=== PATIENT | female | born 1955 | race Caucasian/White ===

== ENCOUNTER → 2016-11-13 | Outpatient (CLI) | payer MEDICARE, BC ==
[2016-11-13 09:27] LABS: Blood Urea Nitrogen 5 mg/dL (7-17); Non-African American GFR(MDRD) >60 (>60 ml/min/1.73 sqM)
--- NOTE | 2016-11-13 11:00 | MR ---
EXAMINATION TYPE: MR angio head wo con DATE OF EXAM: 11/13/2016 10:43 AM COMPARISON: Previous study dated 08/24/2015. HISTORY: Brain tumor, cerebral aneurysm. TECHNIQUE: Time of flight images focusing on the [place] were performed without contrast. FINDINGS: The vertebral arteries are codominant. The right posterior communicating artery is visualiz ed. The left is not. Both ophthalmic arteries are visualized. There is normal arborization of the middle cerebral arteries bilaterally. No sizable aneurysm is identified. IMPRESSION: Normal MRA of the [place].
--- NOTE | 2016-11-13 11:09 | MR ---
EXAMINATION TYPE: MR brain wo/w con DATE OF EXAM: 11/13/2016 10:43 AM COMPARISON: Previous study dated 08/24/2015. HISTORY: brain tumor, cerebral aneurysm TECHNIQUE: Multiplanar, multiecho imaging of the brain was obtained with and without intravenous adm inistration of 15 mL intravenous MultiHance. FINDINGS: Midline structures are unremarkable. There is a normal craniocervical junction. Echoplanar diffusion imaging shows no evidence of restricted diffusion. There are normal vascular flow voids. The orbits are normal. There is no evidence of a CP angle mass lesion. No definite focal lesion, mass effect or midline shift is seen. I do not see evidence of intracranial blood. Following intravenous administration of gadolinium, I do not see evidence of abnormal enhancement. IMPRESSION: NORMAL MRI OF THE BRAIN.
== END ==
LOC: RADMRIMAIN 08:59
PROVIDERS: ATTEND Psychiatry & Neurology Neurology
DX: D49.6 Neoplasm of unspecified behavior of brain (principal); I67.1 Cerebral aneurysm, nonruptured
CPT/HCPCS: 82565; 84520; 70544; 70553; A9577

== ENCOUNTER 2018-01-27 11:47 | Emergency (ER) | payer MEDICARE, BC ==
[2018-01-27 12:06] VITALS: RESP 18
--- NOTE | 2018-01-27 12:26 | ED ---
General Adult HPI - General Chief complaint: Psychiatric Symptoms Stated complaint: mental health depression Source: patient Mode of arrival: ambulatory Limitations: no limitations - History of Present Illness Initial comments: Dictation was produced using [employer] dictation software. please excuse any grammatical, word or spelling errors. Chief Complaint: 63-year-old female past medical history depression, anxiety and bipolar disease presents requesting psychiatric evaluation. History of Present Illness: Patient denies any suicidal or homicidal ideation. Denies any visual artery hallucinations. Patient states she's been depressed for the last several months. She's been having difficulties with finding a psychiatrist. She states she has really good insurance however she reports that most psychiatrist with take Medicaid. Patient requesting EPS evaluation for medication adjustment. The ROS documented in this emergency department record has been reviewed and confirmed by me. Those systems with pertinent positive or negative responses have been documented in the HPI. All other systems are other negative and/or noncontributory. - Related Data Home Medications Medication Instructions Recorded Confirmed LORazepam [Ativan] 1 mg PO BID 10/28/13 01/27/18 lamoTRIgine [LaMICtal] 200 mg PO BID 10/28/13 01/27/18 Lisdexamfetamine Dimesylate 40 mg PO DAILY 04/10/16 01/27/18 [Vyvanse] QUEtiapine FUMARATE [SEROquel] 200 mg PO HS 04/10/16 01/27/18 traZODone HCL 150 mg PO HS 04/10/16 01/27/18 Multivitamins, Thera [Multivitamin 1 tab PO DAILY 01/27/18 01/27/18 (formulary)] Allergies Allergy/AdvReac Type Severity Reaction Status Date / Time No Known Allergies Allergy Verified 01/27/18 12:42 Review of Systems ROS Statement: Those systems with pertinent positive or pertinent negative responses have been documented in the HPI. ROS Other: All systems not noted in ROS Statement are negative. Past Medical History Past Medical History: No Reported History History of Any Multi-Drug Resistant Organisms: None Reported Past Surgical History: Back Surgery, Bariatric Surgery, Orthopedic Surgery Additional Past Surgical History / Comment(s): right shoulder, left shoulder, gastric bypass Past Anesthesia/Blood Transfusion Reactions: No Reported Reaction Past Psychological History: Anxiety, Bipolar, Depression Smoking Status: Former smoker General Exam - General Exam Comments Initial Comments: PHYSICAL EXAM: General Impression: Alert and oriented x3, not in acute distress HEENT: Normocephalic atraumatic, extra-ocular movements intact, pupils equal and reactive to light bilaterally, mucous membranes moist. Cardiovascular: Heart regular rate and rhythm, S1&S2 audible, no murmurs, rubs or gallops Chest: Lungs clear to auscultation bilaterally, no rhonchi, no wheeze, no rales Abdomen: Bowel sounds present, abdomen soft, non-tender, non-distended, no organomegaly Musculoskeletal: Pulses present and equal in all extremities, no peripheral edema Motor: Power 5/5 bilaterally, no focal deficits noted Neurological: CN II-XII grossly intact, no focal motor or sensory deficits noted Skin: Intact with no visualized rashes Psych: Flat of ideas, tangential speech Limitations: no limitations Course Vital Signs 01/27/18 12:04 Temperature 97.1 F L Pulse Rate 72 Respiratory 18 Rate Blood Pressure 136/82 O2 Sat by Pulse 97 Oximetry Medical Decision Making - Medical Decision Making ED course: 63-year-old female past medical history of bipolar disease , depression and anxiety presents seeking psychiatric evaluation for possible medication adjustment. Vital signs upon arrival are within normal limits. Patient not exhibiting any signs of psychosis. She states she is not suicidal or homicidal. No auditory or visual hallucinations. Patient denies any drinking. EPS consult it for evaluation. Patient was evaluated by EPS recommended discharge. She was given resources for outpatient management of her symptoms. Patient understandable agreeable to plan. - Lab Data Lab Results 01/27/18 Range/Units 13:32 Urine Opiates Screen Not Detected (NotDetected) Ur Oxycodone Screen Not Detected (NotDetected) Urine Methadone Screen Not Detected (NotDetected) Ur Propoxyphene Screen Not Detected (NotDetected) Ur Barbiturates Screen Not Detected (NotDetected) U Tricyclic Antidepress Not Detected (NotDetected) Ur Phencyclidine Scrn Not Detected (NotDetected) Ur Amphetamines Screen Detected H (NotDetected) U Methamphetamines Scrn Not Detected (NotDetected) U Benzodiazepines Scrn Detected H (NotDetected) Urine Cocaine Screen Not Detected (NotDetected) U Marijuana (THC) Screen Not Detected (NotDetected) Disposition Clinical Impression: Depression Disposition: HOME SELF-CARE Condition: Good Instructions: Depression (ED) Is patient prescribed a controlled substance at d/c from ED?: No Referrals: None,Stated [Primary Care Provider] - 1-2 days Time of Disposition: 14:25
[2018-01-27 14:08] LABS: Amphetamine Screen,Urine Detected (NotDetected); Barbiturate Screen,Urine Not Detected (NotDetected); Benzodiazepines Screen,Urine Detected (NotDetected); Cocaine Screen,Urine Not Detected (NotDetected); Methadone Screen, Urine Not Detected (NotDetected); Opiate Screen,Urine Not Detected (NotDetected); Oxycodone Screen, Urine Not Detected (NotDetected); Phencyclidine Screen,Urine Not Detected (NotDetected); Tricyclic Antidepressant,Urine Not Detected (NotDetected); Urn Cannabinoid Scrn Not Detected (NotDetected)
[2018-01-27 14:31] VITALS: BP 144/92; PULSE 51; TEMP 98.6
== END 2018-01-27 14:30 | disposition home or self-care (01) ==
LOC: EC 11:47
DX: F32.9 Major depressive disorder, single episode, unspecified (principal); F41.9 Anxiety disorder, unspecified; Z87.891 Personal history of nicotine dependence; Z79.899 Other long term (current) drug therapy
CPT/HCPCS: 80306; 99284

== ENCOUNTER 2018-02-03 17:45 | Inpatient (IN) | payer MEDICARE, BC ==
[2018-02-03] MEDS ORDERED: LORazepam 1 MG TAB PO STA (18:39)
--- NOTE | 2018-02-03 18:55 | ED ---
Psych HPI - General Chief Complaint: Psychiatric Symptoms Stated Complaint: EPS eval Time Seen by Provider: 02/03/18 18:05 Source: patient, RN notes reviewed Mode of arrival: ambulatory Limitations: no limitations - History of Present Illness Initial Comments: This is a 63-year-old female who presents to the emergency department for mental health evaluation. Patient states that she has a history of bipolar disorder. She states that she has been taking Vyvanse, Ativan, Lamictal, trazodone and Seroquel for years. She states that in September there was a problem with her son's bill at her psychiatrist's office and he was discharged from the office. She states that she was also discharged from the office at the same time because of her son. She states that she has been given refills from her psychiatrist for the Lamictal, trazodone and Seroquel, but has not been given refills for the Vyvanse and Ativan. Patient states that she has been given multiple referrals to psychiatrists within the [place]. She states that she has called approximately 20 different psychiatrists and none of them take her [employer] insurance. She states that she did follow up with her primary care provider, Dr. Montes who would not refill her Vyvanse and Ativan. She reports she ran out of her Vyvanse and Ativan last . She states that she has been going through withdrawals from the Ativan with symptoms including abdominal pain, nausea and vomiting. 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 She states that on Thursday she was very close to stopping at a local bar and drinking Vodka. She states that she knew it would only be a temporary fix so was able to talk herself out of it. Patient states that her symptoms have worsened since that time. She states that she is now feeling suicidal. She states that she is having urges to drink alcohol and take pills because she does not want to ever wake up. She reports telling her son about these symptoms and he suggested that she come to the emergency department for evaluation. Patient also complains of right-sided chest pain that began yesterday and has spread across her entire chest. Denies any shortness of breath, fevers or chills, diarrhea. Patient states she was evaluated here last Thursday but was discharged home because at the time she was not feeling suicidal. - Related Data Home Medications Medication Instructions Recorded Confirmed LORazepam [Ativan] 1 - 2 mg PO DAILY PRN 10/28/13 02/03/18 lamoTRIgine [LaMICtal] 200 mg PO BID 10/28/13 02/03/18 Lisdexamfetamine Dimesylate 40 mg PO DAILY 04/10/16 02/03/18 [Vyvanse] QUEtiapine FUMARATE [SEROquel] 200 mg PO HS 04/10/16 02/03/18 traZODone HCL 150 mg PO HS 04/10/16 02/03/18 Allergies Allergy/AdvReac Type Severity Reaction Status Date / Time No Known Allergies Allergy Verified 02/03/18 18:34 Review of Systems ROS Statement: Those systems with pertinent positive or pertinent negative responses have been documented in the HPI. ROS Other: All systems not noted in ROS Statement are negative. Past Medical History Past Medical History: No Reported History History of Any Multi-Drug Resistant Organisms: None Reported Past Surgical History: Back Surgery, Bariatric Surgery, Orthopedic Surgery Additional Past Surgical History / Comment(s): right shoulder, left shoulder, gastric bypass Past Anesthesia/Blood Transfusion Reactions: No Reported Reaction Past Psychological History: Anxiety, Bipolar, Depression Smoking Status: Former smoker General Exam - General Exam Comments Initial Comments: General: Awake and alert, well-developed; in no apparent distress. HEENT: Head atraumatic, normocephalic. Pupils are equal, round and reactive to light. Extraocular movements intact. Oropharynx moist without erythema or exudate. Neck: Supple. Normal ROM. Cardiovascular: Regular rate and rhythm. No murmurs, rubs or gallops. Chest symmetrical. Respiratory: Lungs clear to auscultation bilaterally. No wheezes, rales or rhonchi. Normal respiratory effort with no use of accessory muscles. Abdomen: Soft, non-distended. Mild generalized tenderness. No rigidity, rebound or guarding. Normal bowel sounds in all 4 quadrants. Musculoskeletal: Normal ROM, no tenderness bilateral upper and lower extremities. Ambulating normally. Skin: [place], warm and dry without rashes or lesions. Neurological: Alert and oriented x3. CN II-XII grossly intact. Speech is fluent and answers are appropriate. No focal neuro deficits. Psychiatric: Patient is very talkative and forthcoming with history. Tearful at times. Anxious. Limitations: no limitations Course Vital Signs 02/03/18 17:57 Temperature 97.4 F L Pulse Rate 69 Respiratory 18 Rate Blood Pressure 157/77 O2 Sat by Pulse 99 Oximetry Medical Decision Making - Medical Decision Making This is a 63-year-old female who presents to the emergency department for mental health evaluation. Patient reports feeling suicidal since being off of her Vyvanse and Ativan last . Patient was cleared and evaluated by EPS. Recommendation is admission. Vitals are stable and patient is in no acute distress. She will be admitted to the psychiatric unit here at [facility]. - Lab Data Result diagrams: 02/03/18 18:49 02/03/18 18:49 Lab Results 02/03/18 02/03/18 02/03/18 Range/Units 18:49 18:49 18:49 WBC 6.5 (3.8-10.6) k/uL RBC 3.90 (3.80-5.40) m/uL Hgb 12.3 (11.4-16.0) gm/dL Hct 37.5 (34.0-46.0) % MCV 96.2 (80.0-100.0) fL MCH 31.4 (25.0-35.0) pg MCHC 32.6 (31.0-37.0) g/dL RDW 14.0 (11.5-15.5) % Plt Count 233 (150-450) k/uL Neutrophils % 68 % Lymphocytes % 17 % Monocytes % 7 % Eosinophils % 5 % Basophils % 1 % Neutrophils # 4.4 (1.3-7.7) k/uL Lymphocytes # 1.1 (1.0-4.8) k/uL Monocytes # 0.5 (0-1.0) k/uL Eosinophils # 0.3 (0-0.7) k/uL Basophils # 0.1 (0-0.2) k/uL Sodium 136 L (137-145) mmol/L Potassium 4.2 (3.5-5.1) mmol/L Chloride 101 (98-107) mmol/L Carbon Dioxide 25 (22-30) mmol/L Anion Gap 10 mmol/L BUN 11 (7-17) mg/dL Creatinine 0.56 (0.52-1.04) mg/dL Est GFR (CKD-EPI)AfAm >90 (>60 ml/min/1.73 sqM) Est GFR (CKD-EPI)NonAf >90 (>60 ml/min/1.73 sqM) Glucose 102 H (74-99) mg/dL Calcium 10.6 H (8.4-10.2) mg/dL Total Bilirubin 0.5 (0.2-1.3) mg/dL AST 30 (14-36) U/L ALT 34 (9-52) U/L Alkaline Phosphatase 86 (38-126) U/L Troponin I (0.000-0.034) ng/mL Total Protein 6.8 (6.3-8.2) g/dL Albumin 4.3 (3.5-5.0) g/dL Urine Color Light Yellow Urine Appearance Clear (Clear) Urine pH 6.0 (5.0-8.0) Ur Specific [place] 1.005 (1.001-1.035) Urine Protein Negative (Negative) Urine Glucose (UA) Negative (Negative) Urine Ketones Negative (Negative) Urine Blood Small H (Negative) Urine Nitrite Negative (Negative) Urine Bilirubin Negative (Negative) Urine Urobilinogen <2.0 (<2.0) mg/dL Ur Leukocyte Esterase Negative (Negative) Urine RBC 1 (0-5) /hpf Urine WBC <1 (0-5) /hpf Urine Bacteria Rare H (None) /hpf Urine Opiates Screen Not Detected (NotDetected) Ur Oxycodone Screen Not Detected (NotDetected) Urine Methadone Screen Not Detected (NotDetected) Ur Propoxyphene Screen Not Detected (NotDetected) Ur Barbiturates Screen Not Detected (NotDetected) U Tricyclic Antidepress Not Detected (NotDetected) Ur Phencyclidine Scrn Not Detected (NotDetected) Ur Amphetamines Screen Detected H (NotDetected) U Methamphetamines Scrn Not Detected (NotDetected) U Benzodiazepines Scrn Not Detected (NotDetected) Urine Cocaine Screen Not Detected (NotDetected) U Marijuana (THC) Screen Not Detected (NotDetected) 02/03/18 Range/Units 18:49 WBC (3.8-10.6) k/uL RBC (3.80-5.40) m/uL Hgb (11.4-16.0) gm/dL Hct (34.0-46.0) % MCV (80.0-100.0) fL MCH (25.0-35.0) pg MCHC (31.0-37.0) g/dL RDW (11.5-15.5) % Plt Count (150-450) k/uL Neutrophils % % Lymphocytes % % Monocytes % % Eosinophils % % Basophils % % Neutrophils # (1.3-7.7) k/uL Lymphocytes # (1.0-4.8) k/uL Monocytes # (0-1.0) k/uL Eosinophils # (0-0.7) k/uL Basophils # (0-0.2) k/uL Sodium (137-145) mmol/L Potassium (3.5-5.1) mmol/L Chloride (98-107) mmol/L Carbon Dioxide (22-30) mmol/L Anion Gap mmol/L BUN (7-17) mg/dL Creatinine (0.52-1.04) mg/dL Est GFR (CKD-EPI)AfAm (>60 ml/min/1.73 sqM) Est GFR (CKD-EPI)NonAf (>60 ml/min/1.73 sqM) Glucose (74-99) mg/dL Calcium (8.4-10.2) mg/dL Total Bilirubin (0.2-1.3) mg/dL AST (14-36) U/L ALT (9-52) U/L Alkaline Phosphatase (38-126) U/L Troponin I <0.012 (0.000-0.034) ng/mL Total Protein (6.3-8.2) g/dL Albumin (3.5-5.0) g/dL Urine Color Urine Appearance (Clear) Urine pH (5.0-8.0) Ur Specific [place] (1.001-1.035) Urine Protein (Negative) Urine Glucose (UA) (Negative) Urine Ketones (Negative) Urine Blood (Negative) Urine Nitrite (Negative) Urine Bilirubin (Negative) Urine Urobilinogen (<2.0) mg/dL Ur Leukocyte Esterase (Negative) Urine RBC (0-5) /hpf Urine WBC (0-5) /hpf Urine Bacteria (None) /hpf Urine Opiates Screen (NotDetected) Ur Oxycodone Screen (NotDetected) Urine Methadone Screen (NotDetected) Ur Propoxyphene Screen (NotDetected) Ur Barbiturates Screen (NotDetected) U Tricyclic Antidepress (NotDetected) Ur Phencyclidine Scrn (NotDetected) Ur Amphetamines Screen (NotDetected) U Methamphetamines Scrn (NotDetected) U Benzodiazepines Scrn (NotDetected) Urine Cocaine Screen (NotDetected) U Marijuana (THC) Screen (NotDetected) - EKG Data EKG Comments: 19:20:00. Sinus bradycardia. Ventricular rate 46 bpm, OK interval 206, QRS duration 86, QT/QTc 462/404 Disposition Clinical Impression: Suicidal ideation, Bipolar disorder Disposition: ADMITTED IP TO THIS HOSP Condition: Good
[2018-02-03 19:12] LABS: Basophils # (A) 0.1 k/uL (0-0.2); Basophils % (A) 1 %; Eosinophils # (A) 0.3 k/uL (0-0.7); Eosinophils % (A) 5 %; HCT 37.5 % (34.0-46.0); HGB 12.3 gm/dL (11.4-16.0); Lymphocytes # (A) 1.1 k/uL (1.0-4.8); Lymphocytes % (A) 17 %; MCH 31.4 pg (25.0-35.0); MCHC 32.6 g/dL (31.0-37.0); MCV 96.2 fL (80.0-100.0); Mean Platelet Volume 6.9; Monocytes # (A) 0.5 k/uL (0-1.0); Monocytes % (A) 7 %; Neutrophils # (A) 4.4 k/uL (1.3-7.7); Neutrophils % (A) 68 %; Platelet Count 233 k/uL (150-450); WBC 6.5 k/uL (3.8-10.6)
[2018-02-03 19:22] LABS: Appearance,Urine Clear (Clear); Bacteria,Urine Rare /hpf; Bilirubin,Urine Negative (Negative); Blood,Urine Small (Negative); Color,Urine Light Yellow; Glucose,Urine (UA) Negative (Negative); Ketones,Urine Negative (Negative); Leukocyte Esterase,Urine Negative (Negative); Nitrite,Urine Negative (Negative); Protein,Urine Negative (Negative); RBC,Urine 1 /hpf (0-5); Specific Gravity,Urine 1.005 (1.001-1.035); Urobilinogen,Urine <2.0 mg/dL (<2.0); WBC,Urine <1 /hpf (0-5)
[2018-02-03 19:24] LABS: ALT 34 U/L (9-52); AST 30 U/L (14-36); Albumin 4.3 g/dL (3.5-5.0); Alkaline Phosphatase 86 U/L (38-126); Anion Gap 10 mmol/L; Blood Urea Nitrogen 11 mg/dL (7-17); Calcium 10.6 mg/dL (8.4-10.2); Carbon Dioxide 25 mmol/L (22-30); Chloride 101 mmol/L (98-107); Glucose 102 mg/dL (74-99); Potassium 4.2 mmol/L (3.5-5.1); Sodium 136 mmol/L (137-145); Total Bilirubin 0.5 mg/dL (0.2-1.3); Total Protein 6.8 g/dL (6.3-8.2)
[2018-02-03 19:25] LABS: Amphetamine Screen,Urine Detected (NotDetected); Barbiturate Screen,Urine Not Detected (NotDetected); Benzodiazepines Screen,Urine Not Detected (NotDetected); Cocaine Screen,Urine Not Detected (NotDetected); Methadone Screen, Urine Not Detected (NotDetected); Opiate Screen,Urine Not Detected (NotDetected); Oxycodone Screen, Urine Not Detected (NotDetected); Phencyclidine Screen,Urine Not Detected (NotDetected); Tricyclic Antidepressant,Urine Not Detected (NotDetected); Urn Cannabinoid Scrn Not Detected (NotDetected)
[2018-02-03] MEDS ORDERED: ZIPRASIDONE 20 MG VIAL IM PRN (22:25)
[2018-02-03] MEDS ORDERED: LORazepam 1 MG TAB PO PRN (22:25)
[2018-02-03] MEDS ORDERED: QUEtiapine 100 MG TAB PO SCH (22:30)
[2018-02-04] MEDS: MAG HYDROX/AL HYDROX/SIMETH 30 ML CUP PO PRN (02:12)
[2018-02-04] MEDS: lamoTRIgine 100 MG TAB PO SCH ×2 (08:53→20:40)
[2018-02-04 10:29] LABS: ALT 26 U/L (9-52); AST 28 U/L (14-36); Albumin 4.4 g/dL (3.5-5.0); Alkaline Phosphatase 82 U/L (38-126); Anion Gap 6 mmol/L; Bilirubin, Delta 0.1 mg/dL (0.0-0.2); Bilirubin,Unconjugated 0.4 mg/dL (0.0-1.1); Blood Urea Nitrogen 13 mg/dL (7-17); Calcium 10.7 mg/dL (8.4-10.2); Carbon Dioxide 25 mmol/L (22-30); Chloride 107 mmol/L (98-107); Glucose 81 mg/dL (74-99); Sodium 138 mmol/L (137-145); Total Bilirubin 0.5 mg/dL (0.2-1.3); Total Protein 6.8 g/dL (6.3-8.2)
--- NOTE | 2018-02-04 10:34 | P.HP ---
Psychiatric H&P - . H&P Date: 02/04/18 History & Physical: Allergies Allergy/AdvReac Type Severity Reaction Status Date / Time No Known Allergies Allergy Verified 02/03/18 18:34 Vital Signs Temp 97.5 F L 02/04/18 02:15 Pulse 58 L 02/04/18 02:15 Resp 16 02/04/18 02:15 BP 144/84 02/04/18 02:15 Pulse Ox 99 02/03/18 17:57 Intake & Output 02/03/18 02/04/18 02/04/18 18:59 06:59 18:59 Weight 70.76 kg 71.4 kg Laboratory Last Values WBC 6.5 k/uL (3.8-10.6) 02/03/18 18:49 RBC 3.90 m/uL (3.80-5.40) 02/03/18 18:49 Hgb 12.3 gm/dL (11.4-16.0) 02/03/18 18:49 Hct 37.5 % (34.0-46.0) 02/03/18 18:49 MCV 96.2 fL (80.0-100.0) 02/03/18 18:49 MCH 31.4 pg (25.0-35.0) 02/03/18 18:49 MCHC 32.6 g/dL (31.0-37.0) 02/03/18 18:49 RDW 14.0 % (11.5-15.5) 02/03/18 18:49 Plt Count 233 k/uL (150-450) 02/03/18 18:49 Neutrophils % 68 % 02/03/18 18:49 Lymphocytes % 17 % 02/03/18 18:49 Monocytes % 7 % 02/03/18 18:49 Eosinophils % 5 % 02/03/18 18:49 Basophils % 1 % 02/03/18 18:49 Neutrophils # 4.4 k/uL (1.3-7.7) 02/03/18 18:49 Lymphocytes # 1.1 k/uL (1.0-4.8) 02/03/18 18:49 Monocytes # 0.5 k/uL (0-1.0) 02/03/18 18:49 Eosinophils # 0.3 k/uL (0-0.7) 10/17/18 18:49 Basophils # 0.1 k/uL (0-0.2) 02/03/18 18:49 Sodium 136 mmol/L (137-145) L 18 18:49 Potassium 4.2 mmol/L (3.5-5.1) 18 18:49 Chloride 101 mmol/L (98-107) 02/03/18 18:49 Carbon Dioxide 25 mmol/L (22-30) 02/03/18 18:49 Anion Gap 10 mmol/L 02/03/18 18:49 BUN 11 mg/dL (7-17) 02/03/18 18:49 Creatinine 0.56 mg/dL (0.52-1.04) 02/03/18 18:49 Est GFR (CKD-EPI)AfAm >90 (>60 ml/min/1.73 sqM) 02/03/18 18:49 Est GFR (CKD-EPI)NonAf >90 (>60 ml/min/1.73 sqM) 02/03/18 18:49 Glucose 102 mg/dL (74-99) H 02/03/18 18:49 Calcium 10.6 mg/dL (8.4-10.2) H 02/03/18 18:49 Total Bilirubin 0.5 mg/dL (0.2-1.3) 02/03/18 18:49 AST 30 U/L (14-36) 18 18:49 ALT 34 U/L (9-52) 18 18:49 Alkaline Phosphatase 86 U/L (38-126) 02/03/18 18:49 Troponin I <0.012 ng/mL (0.000-0.034) 18 18:49 Total Protein 6.8 g/dL (6.3-8.2) 18 18:49 Albumin 4.3 g/dL (3.5-5.0) 02/03/18 18:49 Urine Color Light Yellow 18 18:49 Urine Appearance Clear (Clear) 18 18:49 Urine pH 6.0 (5.0-8.0) 18 18:49 Ur Specific [place] 1.005 (1.001-1.035) 18 18:49 Urine Protein Negative (Negative) 02/03/18 18:49 Urine Glucose (UA) Negative (Negative) 02/03/18 18:49 Urine Ketones Negative (Negative) 02/03/18 18:49 Urine Blood Small (Negative) H 02/03/18 18:49 Urine Nitrite Negative (Negative) 02/03/18 18:49 Urine Bilirubin Negative (Negative) 02/03/18 18:49 Urine Urobilinogen <2.0 mg/dL (<2.0) 02/03/18 18:49 Ur Leukocyte Esterase Negative (Negative) 02/03/18 18:49 Urine RBC 1 /hpf (0-5) 02/03/18 18:49 Urine WBC <1 /hpf (0-5) 02/03/18 18:49 Urine Bacteria Rare /hpf (None) H 02/03/18 18:49 Urine Opiates Screen Not Detected (NotDetected) 02/03/18 18:49 Ur Oxycodone Screen Not Detected (NotDetected) 02/03/18 18:49 Urine Methadone Screen Not Detected (NotDetected) 02/03/18 18:49 Ur Propoxyphene Screen Not Detected (NotDetected) 02/03/18 18:49 Ur Barbiturates Screen Not Detected (NotDetected) 02/03/18 18:49 U Tricyclic Antidepress Not Detected (NotDetected) 02/03/18 18:49 Ur Phencyclidine Scrn Not Detected (NotDetected) 02/03/18 18:49 Ur Amphetamines Screen Detected (NotDetected) H 02/03/18 18:49 U Methamphetamines Scrn Not Detected (NotDetected) 02/03/18 18:49 U Benzodiazepines Scrn Not Detected (NotDetected) 02/03/18 18:49 Urine Cocaine Screen Not Detected (NotDetected) 02/03/18 18:49 U Marijuana (THC) Screen Not Detected (NotDetected) 02/03/18 18:49 his is a 63-year-old female who presents to the emergency department for mental health evaluation. Patient reports feeling suicidal since being off of her Vyvanse and Ativan last . Patient was cleared and evaluated by EPS. Recommendation is admission. Vitals are stable and patient is in no acute distress. She will be admitted to the psychiatric unit here at [facility]. 02/04/18 09:22 Assessment and Plan Assessment: General Chief Complaint: Psychiatric Symptoms Stated Complaint: psychiatry Time Seen by Provider: 02/04/2018 Source: patient, RN notes reviewed Mode of arrival: ambulatory Limitations: no limitations - History of Present Illness Initial Comments: This is a 63-year-old female who presents to the emergency department for mental health evaluation. Patient states that she has a history of bipolar disorder. She states that she has been taking Vyvanse, Ativan, Lamictal, trazodone and Seroquel for years. She states that in September there was a problem with her son's bill at her psychiatrist's office and he was discharged from the office. She states that she was also discharged from the office at the same time because of her son. She states that she has been given refills from her psychiatrist for the Lamictal, trazodone and Seroquel, but has not been given refills for the Vyvanse and Ativan. Patient states that she has been given multiple referrals to psychiatrists within the 3 surrounding counties. She states that she has called approximately 20 different psychiatrists and none of them take her [employer] insurance. She states that she did follow up with her primary care provider, Dr. Montes who would not refill her Vyvanse and Ativan. She reports she ran out of her Vyvanse and Ativan last . She states that she has been going through withdrawals from the Ativan with symptoms including abdominal pain, nausea and vomiting. 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 She states that on Thursday she was very close to stopping at a local bar and drinking Vodka. She states that she knew it would only be a temporary fix so was able to talk herself out of it. Patient states that her symptoms have worsened since that time. She states that she is now feeling suicidal. She states that she is having urges to drink alcohol and take pills because she does not want to ever wake up. She reports telling her son about these symptoms and he suggested that she come to the emergency department for evaluation. Patient also complains of right-sided chest pain that began yesterday and has spread across her entire chest. Denies any shortness of breath, fevers or chills, diarrhea. Patient states she was evaluated here last Thursday but was discharged home because at the time she was not feeling suicidal. - Related Data Home Medications Medication Instructions Recorded Confirmed LORazepam [Ativan] 1 - 2 mg PO DAILY PRN 10/28/13 02/03/18 lamoTRIgine [LaMICtal] 200 mg PO BID 10/28/13 02/03/18 Lisdexamfetamine Dimesylate 40 mg PO DAILY 04/10/16 02/03/18 [Vyvanse] QUEtiapine FUMARATE [SEROquel] 200 mg PO HS 04/10/16 02/03/18 traZODone HCL 150 mg PO HS 04/10/16 02/03/18 Allergies Allergy/AdvReac Type Severity Reaction Status Date / Time No Known Allergies Allergy Verified 02/03/18 18:34 Past Medical History Past Medical History: No Reported History History of Any Multi-Drug Resistant Organisms: None Reported Past Surgical History: Back Surgery, Bariatric Surgery, Orthopedic Surgery Additional Past Surgical History / Comment(s): right shoulder, left shoulder, gastric bypass Past Anesthesia/Blood Transfusion Reactions: No Reported Reaction Past Psychological History: Anxiety, Bipolar, Depression Smoking Status: Former smoker Musculoskeletal Examination - Abnormal/Involuntary Movements: [none Strength: [greater than antigravity (greater than/equal to 3/5) in all extremities Muscle Tone: [no impairment Gait: [grossly normal Station: [grossly normal Mental Status Examination - General Appearance: [well groomed, appears stated age Speech/Language: [spontaneous, rapid, rambled, mumbling, expressive, loud Attitude/Behavior: [cooperative Mood: [depressed,anxious, elated, irritable, angry, fearful Affect: [lively, flat, incongruent, labile Orientation: [time, person, place situation] Thought Content: [wnl Risk Factors: [she has suicidal (ideations, plan), and/or Homicidal (ideations, plan) Perception: [hallucinations visual Thought Processes: [goal-oriented Concentration/Attention Span: [wnl] [Per observation and interview with the patient] Recent Memory: [wnl] [ 3 out of 3 in 3 minutes] Remote Memory: [wnl] [past events, as related history] Intelligence: [average] [based on history, based on vocabulary, syntax, grammar , and content] Judgement: [fair] [per patient's behavior/history of present illness] Insight: [ fair] [understanding severity of illness/history of present illness] Admitting Diagnosis: [Bipolar TYPE II DEPRESSED, recoverying alcoholic and nicotine] Patient Strengths - Achievements: [x] Steady employment/financial stability: [x] Housing stability: [x] Able to vocalize needs: [x] Motivation, determination, readiness for change: [x] Resources - social, interpersonal, monetary: [x] Interpersonal relationships and supports available - family, relatives, friends : [x] Patient Limitations: [medication, non-compliance, intellectual impairment, complicated medical illness, lack of social supports Initial Plan of Care: [Initial treatment plan will include maintaining her on Lamictal 200 mg in the morning, clonidine 0.1 mg in the morning and bedtime will be Lamictal 200 mg, Invega 6 mg at bedtime plus Mirapex 0.5 mg by mouth daily at bedtime. She'll be integrated in [facility] therapeutic environment whereby she'll be evaluated by medicine, psychiatric evaluation underway at the current time, nursing evaluation, social work evaluation, recreational therapy and be integrated into the groups to gain insight about her mental illness and medications.] Estimated Length of Stay: [7-10 days] Initial Discharge Plan: [home, [facility], referred to therapist, Prognosis: [ fair] Justification for Inpatient Hospitalization - [Hallucinations, delusions, agitation, anxiety, depression resulting in significant loss of functioning.] [Dangerous to self, others, or property with need for controlled environment.] [Emotional or behavioral conditions and complications requiring 24 hour medical and nursing care.] [Need for special drug therapy, or other therapeutic program requiring continuous hospitalization.] [Failure of social or occupational functioning.] [Inability to meet basic life and health needs.] [Patient's occupation presents danger to public safety if they continue to use drugs or alcohol.] [Biomedical conditions and complications requiring 24 hour medical and nursing care.] [Recovery environment includes detrimental family structure, logical impediments to out-patient treatment.] [ (1) Bipolar disorder Current Visit: Yes Status: Acute Code(s): F31.9 - BIPOLAR DISORDER, UNSPECIFIED SNOMED Code(s): 66134241 Time with Patient: Greater than 30
[2018-02-04] MEDS ORDERED: cloNIDine HCL 0.2 MG TAB PO STA (12:41)
[2018-02-04] MEDS: PALIPERIDONE 6 MG TAB.ER.24 PO SCH ×2 (20:40→20:43)
[2018-02-04] MEDS: cloNIDine HCL 0.1 MG TAB PO SCH (20:47)
[2018-02-04] MEDS ORDERED: PRAMIPEXOLE 0.5 MG TAB PO SCH (21:00)
[2018-02-04] MEDS: MAGNESIUM HYDROXIDE 2,400 MG/10 ML CUP PO PRN (21:55)
--- NOTE | 2018-02-04 23:35 | P.MDCNMH ---
History of Present Illness H&P Date: 02/04/18 Chief Complaint: Anxiety and withdrawal symptoms Patient is a 63-year-old female with a known history of bipolar disorder was brought to the hospital by her son due to anxiety and withdrawal symptoms from Ativan and Vyvanse. Patient says that she takes Ativan, Lamictal, trazodone and Seroquel for years due to her bipolar disorder. Recently patient out of her medications and try to follow with mental health clinic but could not get appointment due to her insurance issues. Patient could not get prescription for Ativan and spring withdrawal symptoms including nausea vomiting and abdominal pain and anxiety. Due to her symptoms patient was brought to the hospital for mental health evaluation. Currently denied any complaints of chest pain or shortness of breath. No nausea vomiting or abdominal pain. No fever no chills. Denied any recent illnesses. No diarrhea. No dysuria or hematuria. No sick contacts at home. Blood pressure 157/77 on admission. Patient says that she is concerned Catapres medication and thinking that it would suppress her mentation. Review of Systems Constitutional: Patient denies any fever or chills . No generalized weakness or weight loss. Abdomen: Patient denied nausea vomiting and diarrhea and abdominal pain. Cardiovascular: Patient denies any chest pain or short of breath no palpitations. Respiratory: patient denied any cough is from production. No shortness of breath Neurologic: Patient denied any numbness or tingling headache. Musculoskeletal: Patient denies any complaints of joint swelling or deformity. Skin: Negative Psychiatric: Anxiety Endocrine: No heat or cold intolerance. No recent weight gain. Genitourinary: No dysuria or hematuria. All other 14 point ROS negative except the above Past Medical History Past Medical History: No Reported History History of Any Multi-Drug Resistant Organisms: None Reported Past Surgical History: Back Surgery, Bariatric Surgery, Orthopedic Surgery Additional Past Surgical History / Comment(s): right shoulder, left shoulder, gastric bypass Past Anesthesia/Blood Transfusion Reactions: No Reported Reaction Past Psychological History: Anxiety, Bipolar, Depression Smoking Status: Former smoker Medications and Allergies Home Medications Medication Instructions Recorded Confirmed Type LORazepam [Ativan] 1 - 2 mg PO DAILY PRN 10/28/13 02/03/18 History lamoTRIgine [LaMICtal] 200 mg PO BID 10/28/13 02/03/18 History Lisdexamfetamine Dimesylate 40 mg PO DAILY 04/10/16 02/03/18 History [Vyvanse] QUEtiapine FUMARATE [SEROquel] 200 mg PO HS 04/10/16 02/03/18 History traZODone HCL 150 mg PO HS 04/10/16 02/03/18 History Allergies Allergy/AdvReac Type Severity Reaction Status Date / Time No Known Allergies Allergy Verified 02/03/18 18:34 Physical Exam Vitals: Vital Signs Temp Pulse Pulse Resp BP BP Pulse Ox 02/04/18 02:15 97.5 F L 58 L 16 144/84 02/04/18 00:58 97.7 F 54 L 130/92 02/03/18 17:57 97.4 F L 69 18 157/77 99 Intake and Output 02/03/18 02/04/18 02/04/18 22:59 06:59 14:59 Other: Weight 70.76 kg 71.4 kg PHYSICAL EXAMINATION: Patient is lying in the bed comfortably, no acute distress, awake alert and oriented.. HEENT: Normocephalic. Neck is supple. Pupils reactive. Nostrils clear. Oral cavity is moist. Ears reveal no drainage. Neck reveals no JVD, carotid bruits, or thyromegaly. CHEST EXAMINATION: Trachea is central. Symmetrical expansion. Lung orourke clear to auscultation and percussion. CARDIAC: Normal S1, S2 with no gallops. No murmurs ABDOMEN: Soft. Bowel sounds normal. No organomegaly. No abdominal bruits. Extremities: reveal no edema. No clubbing or cyanosis Neurologically awake, alert, oriented x3 with well-coordinated movements. No focal deficits noted Skin: No rash or skin lesions. Psychiatric: Coperative. Nonsuicidal Musculoskeletal: No joint swelling or deformity. Normal range of motion. Cranial Nerve Examination - Cranial Nerves Cranial Nerve I- Olfactory: Intact Cranial Nerve II- Optic: Intact Cranial Nerve III- Oculomotor: Intact Cranial Nerve IV- Trochlear: Intact Cranial Nerve V- Trigeminal: Intact Cranial Nerve - Abducens: Intact Cranial Nerve VII- Facial: Intact Cranial Nerve VIII- Auditory: Intact Cranial Nerve IX- Glossopharyngeal: Intact Cranial Nerve X- Vagus: Intact Cranial Nerve XI- Accessory: Intact Cranial Nerve XII- Hypoglossal: Intact Results CBC & Chem 7: 02/03/18 18:49 02/04/18 09:27 Labs: Abnormal Lab Results - Last 24 Hours (Table) 02/03/18 02/03/18 02/04/18 Range/Units 18:49 18:49 09:27 Sodium 136 L (137-145) mmol/L Creatinine 0.50 L (0.52-1.04) mg/dL Glucose 102 H (74-99) mg/dL Calcium 10.6 H 10.7 H (8.4-10.2) mg/dL Urine Blood Small H (Negative) Urine Bacteria Rare H (None) /hpf Ur Amphetamines Screen Detected H (NotDetected) Assessment and Plan Assessment: Depression with history of bipolar disorder Possible benzodiazepine withdrawal Elevated blood pressure with no history of hypertension Mild hypercalcemia 10.7. Anxiety Plan: Patient will be continued on psychiatric medications as per the recommendations. Regarding her blood pressure, patient can be started on Norvasc 10 mg daily and lisinopril can be added if the blood pressure is not well controlled. Otherwise continue the current management and will follow closely. Further recommendations based on the clinical course. Thank you for your consult.
[2018-02-05] MEDS ORDERED: diphenhydrAMINE 50 MG CAP PO STA (01:05)
[2018-02-05] MEDS: lamoTRIgine 100 MG TAB PO SCH ×2 (07:52→21:32)
[2018-02-05] MEDS: cloNIDine HCL 0.1 MG TAB PO SCH (07:52)
--- NOTE | 2018-02-05 09:28 | P.PN ---
Subjective Progress Note Date: 02/05/18 Principal diagnosis: bipolar Did not tolerate medications and wants her trazadone and seroquel back Objective - Vital Signs Vital signs: Vital Signs Temp 98.0 F 02/05/18 01:15 Pulse 102 H 02/05/18 01:15 Resp 17 02/05/18 01:15 BP 127/81 02/05/18 01:15 Pulse Ox 99 02/03/18 17:57 - Labs CBC & Chem 7: 02/03/18 18:49 02/04/18 09:27 Labs: Abnormal Lab Results - Last 24 Hours (Table) 02/04/18 Range/Units 09:27 Creatinine 0.50 L (0.52-1.04) mg/dL Calcium 10.7 H (8.4-10.2) mg/dL Assessment and Plan Assessment: General Chief Complaint: Psychiatric Symptoms Stated Complaint: psychiatry Time Seen by Provider: 02/04/2018 Source: patient, RN notes reviewed Mode of arrival: ambulatory Limitations: no limitations - History of Present Illness Initial Comments: This is a 63-year-old female who presents to the emergency department for mental health evaluation. Patient states that she has a history of bipolar disorder. She states that she has been taking Vyvanse, Ativan, Lamictal, trazodone and Seroquel for years. She states that in September there was a problem with her son's bill at her psychiatrist's office and he was discharged from the office. She states that she was also discharged from the office at the same time because of her son. She states that she has been given refills from her psychiatrist for the Lamictal, trazodone and Seroquel, but has not been given refills for the Vyvanse and Ativan. Patient states that she has been given multiple referrals to psychiatrists within the 3 surrounding counties. She states that she has called approximately 20 different psychiatrists and none of them take her [employer] insurance. She states that she did follow up with her primary care provider, Dr. Montes who would not refill her Vyvanse and Ativan. She reports she ran out of her Vyvanse and Ativan last . She states that she has been going through withdrawals from the Ativan with symptoms including abdominal pain, nausea and vomiting. 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 She states that on Thursday she was very close to stopping at a local bar and drinking Vodka. She states that she knew it would only be a temporary fix so was able to talk herself out of it. Patient states that her symptoms have worsened since that time. She states that she is now feeling suicidal. She states that she is having urges to drink alcohol and take pills because she does not want to ever wake up. She reports telling her son about these symptoms and he suggested that she come to the emergency department for evaluation. Patient also complains of right-sided chest pain that began yesterday and has spread across her entire chest. Denies any shortness of breath, fevers or chills, diarrhea. Patient states she was evaluated here last Thursday but was discharged home because at the time she was not feeling suicidal. - Related Data Home Medications Medication Instructions Recorded Confirmed LORazepam [Ativan] 1 - 2 mg PO DAILY PRN 10/28/13 02/03/18 lamoTRIgine [LaMICtal] 200 mg PO BID 10/28/13 02/03/18 Lisdexamfetamine Dimesylate 40 mg PO DAILY 04/10/16 02/03/18 [Vyvanse] QUEtiapine FUMARATE [SEROquel] 200 mg PO HS 04/10/16 02/03/18 traZODone HCL 150 mg PO HS 04/10/16 02/03/18 Allergies Allergy/AdvReac Type Severity Reaction Status Date / Time No Known Allergies Allergy Verified 02/03/18 18:34 Past Medical History Past Medical History: No Reported History History of Any Multi-Drug Resistant Organisms: None Reported Past Surgical History: Back Surgery, Bariatric Surgery, Orthopedic Surgery Additional Past Surgical History / Comment(s): right shoulder, left shoulder, gastric bypass Past Anesthesia/Blood Transfusion Reactions: No Reported Reaction Past Psychological History: Anxiety, Bipolar, Depression Smoking Status: Former smoker Musculoskeletal Examination - Abnormal/Involuntary Movements: [none Strength: [greater than antigravity (greater than/equal to 3/5) in all extremities Muscle Tone: [no impairment Gait: [grossly normal Station: [grossly normal Mental Status Examination - General Appearance: [well groomed, appears stated age Speech/Language: [spontaneous, rapid, rambled, mumbling, expressive, loud Attitude/Behavior: [cooperative Mood: [depressed,anxious, elated, irritable, angry, fearful Affect: [lively, flat, incongruent, labile Orientation: [time, person, place situation] Thought Content: [wnl Risk Factors: [she has suicidal (ideations, plan), and/or Homicidal (ideations, plan) Perception: [hallucinations visual Thought Processes: [goal-oriented Concentration/Attention Span: [wnl] [Per observation and interview with the patient] Recent Memory: [wnl] [ 3 out of 3 in 3 minutes] Remote Memory: [wnl] [past events, as related history] Intelligence: [average] [based on history, based on vocabulary, syntax, grammar , and content] Judgement: [fair] [per patient's behavior/history of present illness] Insight: [ fair] [understanding severity of illness/history of present illness] Admitting Diagnosis: [Bipolar TYPE II DEPRESSED, recoverying alcoholic and nicotine] Patient Strengths - Achievements: [x] Steady employment/financial stability: [x] Housing stability: [x] Able to vocalize needs: [x] Motivation, determination, readiness for change: [x] Resources - social, interpersonal, monetary: [x] Interpersonal relationships and supports available - family, relatives, friends : [x] Patient Limitations: [medication, non-compliance, intellectual impairment, complicated medical illness, lack of social supports Initial Plan of Care: [Initial treatment plan will include maintaining her on Lamictal 200 mg in the morning, Seroquel 600 mg bedtime will be Lamictal 200 mg , Invega 6 mg at bedtime plus Trazadone 150 mg by mouth daily at bedtime. She' ll be integrated in [facility] therapeutic environment whereby she'll be evaluated by medicine, psychiatric evaluation underway at the current time, nursing evaluation, social work evaluation, recreational therapy and be integrated into the groups to gain insight about her mental illness and medications.] Estimated Length of Stay: [7-10 days] Initial Discharge Plan: [facility], referred to therapist, Prognosis: [ fair] Justification for Inpatient Hospitalization - [Hallucinations, delusions, agitation, anxiety, depression resulting in significant loss of functioning.] [Dangerous to self, others, or property with need for controlled environment.] [Emotional or behavioral conditions and complications requiring 24 hour medical and nursing care.] [Need for special drug therapy, or other therapeutic program requiring continuous hospitalization.] [Failure of social or occupational functioning.] [Inability to meet basic life and health needs.] [Patient's occupation presents danger to public safety if they continue to use drugs or alcohol.] [Biomedical conditions and complications requiring 24 hour medical and nursing care.] [Recovery environment includes detrimental family structure, logical impediments to out-patient treatment.] [ (1) Bipolar disorder Current Visit: Yes Status: Acute Code(s): F31.9 - BIPOLAR DISORDER, UNSPECIFIED SNOMED Code(s): 36700880 Plan: [email or web address] Time with Patient: Less than 30
[2018-02-05] MEDS: QUEtiapine 50 MG TAB PO SCH (10:26)
[2018-02-05] MEDS: MAGNESIUM HYDROXIDE 2,400 MG/10 ML CUP PO PRN (10:48)
[2018-02-05] MEDS ORDERED: QUEtiapine 400 MG TAB PO SCH (21:00)
[2018-02-05] MEDS ORDERED: QUEtiapine 100 MG TAB PO STA (21:23)
[2018-02-05] MEDS: traZODone HCL 50 MG TAB PO SCH (21:31)
[2018-02-05] MEDS ORDERED: hydrOXYzine PAMOATE 25 MG CAP PO ONE (23:49)
[2018-02-06] MEDS: lamoTRIgine 100 MG TAB PO SCH ×2 (07:38→20:00)
[2018-02-06] MEDS: QUEtiapine 50 MG TAB PO SCH (10:45)
--- NOTE | 2018-02-06 11:13 | P.PN ---
Progress Note - Text Interval history: The patient is found in the hallway she follows me to an interview room. She feels very distressed because of her anxiety and inability to sleep last night. I was called last evening for medication recommendations The patient is known to me from prior admissions on this mental health unit. She has been successfully stabilize in the past with use of Seroquel. We discussed titrating that dose again at bedtime. As it stands she has a 50 mg dose in the morning only. She states that she spoke with Dr. Kincaid about restarting the evening dose yesterday. The patient describes having significant anxiety she asks for Ativan but we discussed that that is not her best interest and that we could try to utilize Vistaril. We discussed the possibility of Vistaril making her feel tired. Appetite stable. She reports her mood is very distraught due to her anxiety. Mental status exam: The patient is alert she stressor own clothing she is pleasant and cooperative. She has spontaneous speech and readily participates in the conversation. She feels distraught regarding her feelings of anxiety she has some hopelessness thinking. She is reporting no suicidal or homicidal thought at this time. She is endorsing no auditory or visual hallucinations. She does have a history of manic episodes but does not appear hypomanic or manic at this time. She demonstrates no verbal or physical aggressiveness she demonstrates no abnormal involuntary movements. Insight and judgment limited. She is oriented to person place and date. Plan: The patient will continue on her current medications I will add a 300 mg dose of Seroquel at bedtime we will add Vistaril 25 mg up to twice daily for anxiety. We will monitor her for safety. We are trying to avoid use of benzodiazepines. Vital signs reviewed. She is instructed to continue participating in the milieu.
[2018-02-06] MEDS: hydrOXYzine PAMOATE 25 MG CAP PO PRN ×2 (11:31→21:03)
[2018-02-06] MEDS: MAG HYDROX/AL HYDROX/SIMETH 30 ML CUP PO PRN ×2 (14:01→20:00)
[2018-02-06] MEDS: traZODone HCL 50 MG TAB PO SCH (20:01)
[2018-02-06] MEDS: QUEtiapine 100 MG TAB PO SCH (21:03)
[2018-02-07 07:00] VITALS: RESP 14; TEMP 97.9
[2018-02-07] MEDS: hydrOXYzine PAMOATE 25 MG CAP PO PRN ×2 (07:14→17:26)
[2018-02-07] MEDS: lamoTRIgine 100 MG TAB PO SCH ×2 (08:45→20:33)
[2018-02-07] MEDS: MAG HYDROX/AL HYDROX/SIMETH 30 ML CUP PO PRN (09:31)
[2018-02-07] MEDS: QUEtiapine 50 MG TAB PO SCH (10:34)
--- NOTE | 2018-02-07 11:53 | P.PN ---
Progress Note - Text Interval history: The patient is found in the hallway she follows me to an interview room. She indicates she slept better last night but still was not good. She continues to request Ativan throughout the weekend but we discussed that would not be appropriate. She has been attending groups. She indicates she feels more stable than when she came in and she is hoping to be discharged tomorrow. We reviewed her current psychotropic medications and her questions were answered. Mental status exam: The patient is alert she is dressed in her own clothing she is pleasant and cooperative and easily directed during the session. She reports no acute suicidal ideation intent or plan she is reporting no homicidal ideation intent or plan. She denies having any auditory or visual hallucinations or any specific delusions. There is no observed evidence of psychosis. She demonstrates no tangential thinking loose associations or flight of ideas she does not appear hypomanic or manic. She can be circumstantial at times. Insight and judgment appear to be improving. Affect is appropriately expressive including appropriate smiling. She demonstrates no verbal or physical aggressiveness she demonstrates no abnormal repetitive movements. Plan: The patient will continue on her current psychotropic medications. It appears she is stabilizing. We will monitor her for safety and encourage full participation in the milieu. Vital signs reviewed.
[2018-02-07] MEDS: traZODone HCL 50 MG TAB PO SCH (20:32)
[2018-02-07] MEDS: QUEtiapine 100 MG TAB PO SCH (20:56)
[2018-02-08 04:38] VITALS: BP 123/69; PULSE 75
[2018-02-08] MEDS: hydrOXYzine PAMOATE 25 MG CAP PO PRN (05:44)
[2018-02-08] MEDS: lamoTRIgine 100 MG TAB PO SCH (08:59)
[2018-02-08] MEDS: QUEtiapine 50 MG TAB PO SCH (11:16)
--- NOTE | 2018-02-08 11:17 | P.DS ---
Providers Date of admission: 02/03/18 22:20 Expected date of discharge: 02/08/18 Attending physician: [place] Kincaid, DO Consults: 02/03/18 22:25 Consult Physician Routine Consulting Provider: Gilberto Lopez Consult Reason/Comments: H & P and medical care Do you want consulting provider notified?: Yes Primary care physician: Stated None - Discharge Diagnosis(es) (1) Bipolar disorder This is a 63-year-old female who presents to the emergency department for mental health evaluation. Patient reports feeling suicidal since being off of her Vyvanse and Ativan last . Patient was cleared and evaluated by EPS. Recommendation is admission. Vitals are stable and patient is in no acute distress. She will be admitted to the psychiatric unit here at [facility]. This is a 63-year-old female who presents to the emergency department for mental health evaluation. Patient states that she has a history of bipolar disorder. She states that she has been taking Vyvanse, Ativan, Lamictal, trazodone and Seroquel for years. She states that in September there was a problem with her son's bill at her psychiatrist's office and he was discharged from the office. She states that she was also discharged from the office at the same time because of her son. She states that she has been given refills from her psychiatrist for the Lamictal, trazodone and Seroquel, but has not been given refills for the Vyvanse and Ativan. Patient states that she has been given multiple referrals to psychiatrists within the [place]. She states that she has called approximately 20 different psychiatrists and none of them take her [employer] insurance. She states that she did follow up with her primary care provider, Dr. Montes who would not refill her Vyvanse and Ativan. She reports she ran out of her Vyvanse and Ativan last . She states that she has been going through withdrawals from the Ativan with symptoms including abdominal pain, nausea and vomiting. 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 She states that on Thursday she was very close to stopping at a local bar and drinking Vodka. She states that she knew it would only be a temporary fix so was able to talk herself out of it. Patient states that her symptoms have worsened since that time. She states that she is now feeling suicidal. She states that she is having urges to drink alcohol and take pills because she does not want to ever wake up. She reports telling her son about these symptoms and he suggested that she come to the emergency department for evaluation. Patient also complains of right-sided chest pain that began yesterday and has spread across her entire chest. Denies any shortness of breath, fevers or chills, diarrhea. Patient states she was evaluated here last Thursday but was discharged home because at the time she was not feeling suicidal. Current Visit: Yes Status: Acute Priority: Low Hospital Course: Mental status exam: The patient is alert she is dressed in her own clothing she is pleasant and cooperative and easily directed during the session. She reports no acute suicidal ideation intent or plan she is reporting no homicidal ideation intent or plan. She denies having any auditory or visual hallucinations or any specific delusions. There is no observed evidence of psychosis. She demonstrates no tangential thinking loose associations or flight of ideas she does not appear hypomanic or manic. She can be circumstantial at times. Insight and judgment appear to be improving. Affect is appropriately expressive including appropriate smiling. She demonstrates no verbal or physical aggressiveness she demonstrates no abnormal repetitive movements. Plan: The patient will continue on her current psychotropic medications. It appears she is stabilizing. We will monitor her for safety and encourage full participation in the milieu. Vital signs reviewed. Her Vyvanse and Ativan were discontinued and she went through a period of withdrawal and begging and pleading to get it back. Today she is bright and euthymic without any anxiety or depression. She is not suicidal homicidal and has no auditory or visual hallucinations. Patient Condition at Discharge: Good Plan - Discharge Summary New Discharge Prescriptions: New hydrOXYzine PAMOATE [Vistaril] 25 mg PO BID PRN #60 cap PRN Reason: Anxiety QUEtiapine [SEROquel] 50 mg PO 1100 30 Days #30 tab QUEtiapine [SEROquel] 300 mg PO HS 30 Days #90 tab Continue traZODone HCL 150 mg PO HS lamoTRIgine [LaMICtal] 200 mg PO BID 30 Days #60 tablet Discontinued LORazepam [Ativan] 1 - 2 mg PO DAILY PRN PRN Reason: Anxiety QUEtiapine FUMARATE [SEROquel] 200 mg PO HS Lisdexamfetamine Dimesylate [Vyvanse] 40 mg PO DAILY Discharge Medication List traZODone HCL 150 mg PO HS 04/10/16 [History] QUEtiapine [SEROquel] 50 mg PO 1100 30 Days #30 tab 02/08/18 [Rx] QUEtiapine [SEROquel] 300 mg PO HS 30 Days #90 tab 02/08/18 [Rx] hydrOXYzine PAMOATE [Vistaril] 25 mg PO BID PRN #60 cap 02/08/18 [Rx] lamoTRIgine [LaMICtal] 200 mg PO BID 30 Days #60 tablet 02/08/18 [Rx] Follow up Appointment(s)/Referral(s): Psychological,List [Other] - 02/16/18 1:00 pm (Janessa ) None,Stated [Primary Care Provider] - 1-2 days Discharge Disposition: HOME SELF-CARE
== END 2018-02-08 13:46 | disposition home or self-care (01) | DRG 885 ==
LOC: EC 17:45 → 3MHU 22:20
PROVIDERS: ADMIT Psychiatry & Neurology Psychiatry; ATTEND Psychiatry & Neurology Psychiatry
DX: F31.81 Bipolar II disorder (principal); R45.851 Suicidal ideations; F13.239 Sedative, hypnotic or anxiolytic dependence with withdrawal, unspecified; F10.21 Alcohol dependence, in remission; F41.9 Anxiety disorder, unspecified; G47.00 Insomnia, unspecified; Z87.891 Personal history of nicotine dependence; Z91.19 Patient's noncompliance with other medical treatment and regimen; Z98.84 Bariatric surgery status; E83.52 Hypercalcemia; Z79.899 Other long term (current) drug therapy
CPT/HCPCS: 36415; 80048; 80053; 80076; 80175; 80306; 81001; 82075; 84443; 84484; 85025; 93005; 99285

== ENCOUNTER → 2019-10-12 | Outpatient (CLI) | payer MEDICARE, BC ==
--- NOTE | 2019-10-12 09:49 | XR ---
EXAMINATION TYPE: XR abdomen complete w decub DATE OF EXAM: 10/12/2019 HISTORY: Pain. Technique: 3 views of the abdomen are submitted. Comparison: None. Findings: There is no convincing evidence of pneumoperitoneum. The Bowel gas pattern is nonspecific and nonobstructive. No sizable air-fluid levels are seen. No mass effects are noted. No renal calcifications are identified. Moderate fecal stasis noted. IMPRESSION: 1. Nonspecific nonobstructive bowel gas pattern
[2019-10-12 10:02] LABS: Basophils # (A) 0.1 k/uL (0-0.2); Basophils % (A) 2 %; Eosinophils # (A) 0.2 k/uL (0-0.7); Eosinophils % (A) 3 %; HCT 41.2 % (34.0-46.0); HGB 12.4 gm/dL (11.4-16.0); Lymphocytes % (A) 21 %; MCH 28.8 pg (25.0-35.0); MCHC 30.2 g/dL (31.0-37.0); MCV 95.4 fL (80.0-100.0); Mean Platelet Volume 7.1; Monocytes # (A) 0.4 k/uL (0-1.0); Monocytes % (A) 8 %; Neutrophils % (A) 65 %; Platelet Count 291 k/uL (150-450); RBC 4.32 m/uL (3.80-5.40); RDW 14.3 % (11.5-15.5); WBC 4.7 k/uL (3.8-10.6)
[2019-10-12 10:13] LABS: ALT 50 U/L (4-34); AST 35 U/L (14-36); Albumin 4.4 g/dL (3.5-5.0); Alkaline Phosphatase 74 U/L (38-126); Bilirubin,Unconjugated 0.4 mg/dL (0.0-1.1); Total Bilirubin 0.4 mg/dL (0.2-1.3); Total Protein 6.9 g/dL (6.3-8.2)
[2019-10-12 10:46] LABS: C Reactive Protein <5.0 mg/L (<10.0)
[2019-10-12 16:58] LABS: Hepatitis A Antibody IgM Non-Reactive (Non-Reactive); Hepatitis B Core IgM Non-Reactive (Non-Reactive); Hepatitis B Surface Antigen Non-Reactive (Non-Reactive); Hepatitis C IgG Antibody Non-Reactive (Non-Reactive)
== END | disposition home or self-care (01) ==
LOC: RADXRMAIN 09:02
PROVIDERS: ATTEND Nurse Practitioner
DX: R10.9 Unspecified abdominal pain (principal); R74.8 Abnormal levels of other serum enzymes
CPT/HCPCS: 36415; 74021; 80074; 80076; 85025; 86140

== ENCOUNTER → 2021-09-11 | Outpatient (CLI) | payer MEDICARE, BC ==
--- NOTE | 2021-09-11 11:05 | CT ---
EXAMINATION TYPE: CT thor lumbar spine wo con DATE OF EXAM: 09/11/2021 COMPARISON: X-ray dated 08/22/2021 and MRI dated 05/10/2021 HISTORY: Low back pain CT DLP: 844.6 mGycm Automated exposure control for dose reduction was used. TECHNIQUE: Multiplanar CT scan of the thoracic and lumbar spine without IV contrast administration. FINDINGS: Osteopenia. Levoscoliosis of the upper thoracic spine with apex at T4-5 level. Mild dextroscoliosis o f the lumbar spine. Degenerative changes of the lower cervical spine. No definite thoracic vertebral body collapse or acute displaced fracture. Upper endplate depression of L1, L2 and L3 vertebral dannie s, likely chronic, please correlate clinically. Previous vertebroplasty of L1 and L3 vertebral bodies. Marked degenerative changes at L4-5 level with mild anterolisthesis of L4 over L5 and marked degenerated partially calcified disc. Multilevel disc calcification is also noted. Chronic healed fractures of the medial aspects of the right lower ribs. Severe left C4-5, severe bilateral C5-6 neural foraminal stenosis. Right C4-5 and right C3-4 neural f oraminal stenosis. No other significant thoracic central spinal canal stenosis or neuroforaminal sten osis. No significant thoracic disc herniation or protrusion. Mild spinal canal stenosis is seen at T1 2-L1 level secondary to slight retropulsion of the fractured upper endplate of L1. At L1-2 level: No significant central spinal canal stenosis or neuroforaminal stenosis. At L2-3 level: No significant central spinal canal stenosis or neuroforaminal stenosis. At L3-4 level: Right focal foraminal and extra foraminal disc protrusion, causing no significant cent ral spinal canal stenosis and mild right neuroforaminal stenosis. At L4-5: Marked degenerative changes as described above without significant central spinal canal sten osis or significant neuroforaminal stenosis. At L5-S1 level: No significant central spinal canal stenosis or neuroforaminal stenosis. Arterial atherosclerotic calcifications. No paraspinal lesion. Fatty infiltration of the lower back m uscles. IMPRESSION: Upper endplate depression of L1, L2 and L3 vertebral bodies with L1 and L3 vertebroplasty as describe d above, likely chronic, please correlate clinically. Degenerative changes with multilevel DDD and ot her findings as detailed above.
== END | disposition home or self-care (01) ==
LOC: RADCTMAIN 07:00
PROVIDERS: ATTEND Orthopaedic Surgery
DX: M47.816 Spondylosis without myelopathy or radiculopathy, lumbar region (principal); M51.36 Other intervertebral disc degeneration, lumbar region; M47.814 Spondylosis without myelopathy or radiculopathy, thoracic region
CPT/HCPCS: 72128; 72131

== ENCOUNTER → 2022-12-25 | Outpatient (CLI) | payer MEDICARE, BC ==
--- NOTE | 2022-12-26 12:37 | MR ---
EXAMINATION TYPE: MR lumbar spine wo con DATE OF EXAM: 12/25/2022 COMPARISON: Plain films 02/06/2022 HISTORY: Low back and buttocks pain radiating into lower legs CONTRAST: 0 mL intravenous Gadavist. TECHNIQUE: Multiplanar, multisequence images of the lumbar spine were acquired 3.0 Loida magnet. FINDINGS: There are loss of signal areas within the L1 and L3 vertebral bodies corresponding to vert ebral plasty. There is some loss of disc height through these levels. The L2 vertebral level is somew hat narrow without posterior wall displacement. L5-S1: No significant disc bulge or disc herniation. No spinal canal stenosis. No foraminal stenosi s. Facet hypertrophy is present.. L4-L5: No significant disc bulge or disc herniation. No spinal canal stenosis. Moderate right and m oderate to severe left foraminal stenosis is present. . L3-L4: No focal disc herniation or significant disc bulge is evident. No spinal canal stenosis. No f oraminal stenosis. . L2-L3: Some central protrusion is present with mild anterior thecal sac compression. No spinal canal stenosis. No foraminal stenosis. Neural foramen are patent. L1-L2: No significant disc bulge or disc herniation. No spinal canal stenosis. No foraminal stenosi s. . T12-L1: No significant disc bulge or disc herniation. No AP or lateral spinal canal stenosis. No fo raminal stenosis. There is some mild central posterior superior endplate compression into the thecal sac. No cord contact is evident.. IMPRESSION: 1. Small focal protrusion L2-3 with mild anterior thecal sac compression. No stenosis is present. 2. Moderate Foraminal stenosis L4-5 bilaterally
== END | disposition home or self-care (01) ==
LOC: RADMRIMAIN 12:46
PROVIDERS: ATTEND Orthopaedic Surgery
DX: M99.73 Connective tissue and disc stenosis of intervertebral foramina of lumbar region (principal); M51.16 Intervertebral disc disorders with radiculopathy, lumbar region
CPT/HCPCS: 72148

== ENCOUNTER 2023-02-16 08:15 | Inpatient (IN) | payer MEDICARE, BC ==
[2023-03-30 09:49] VITALS: BMI 28.1
[2023-03-31] MEDS ORDERED: GABAPENTIN 300 MG CAP PO PRN (05:00)
[2023-03-31] MEDS ORDERED: ONDANSETRON 4 MG/2 ML VIAL IVP PRN (05:00)
[2023-03-31] MEDS ORDERED: ACETAMINOPHEN TAB 500 MG TAB PO PRN (05:00)
[2023-03-31] MEDS ORDERED: TRANEXAMIC 1,000 MG/100ML-NACL 1,000 MG in SALINE 1 100ML.BAG IVPB PRN (05:00)
[2023-03-31] MEDS ORDERED: ONDANSETRON 4 MG/2 ML VIAL IVP ONE ×2 (05:58→07:20)
[2023-03-31] MEDS ORDERED: DEXAMETHASONE SOD PHOSPHATE 4 MG/ML 1 ML VIAL IV ONE (05:58)
[2023-03-31] MEDS ORDERED: LIDOCAINE 1% (10MG/ML) FOR IV START INTRADERMA PRN (05:58)
[2023-03-31] MEDS ORDERED: droPERidol 5 MG/2 ML VIAL IVP ONE (05:58)
[2023-03-31] MEDS: LACTATED RINGERS 1,000 ML IV SCH (06:31)
[2023-03-31] MEDS ORDERED: MIDAZOLAM 2 MG/2 ML VIAL IVP ONE (06:42)
--- NOTE | 2023-03-31 06:49 | P.HPOR ---
History of Present Illness H&P Date: 03/27/23 .D:Date: 03/27/23 : 08:25am .T:Title: [facility] History and Physical Date of :[birth year] [id number]: NKDA Age: 68 year Height: 5'8" Weight: 170 lbs BP:124/75 BMI: 25.85 kg/m2 Occupation: retired VAS: 9 Hand:Right Spine Surgery Risk Review Ms. Chiang is presenting for evaluation of lumbar pain. It was my pleasure to have seen and examined Ms. Chiang. In our visit today we have had a chance to go over subjective complaints, ph ysical examination findings and treatments including the natural course history without intervention and various interventional options. The patients imaging demonstrates: Thoracic/Lumbar CT scan taken on 08/22/22 at [facility]: THORACIC SPINE: 1. Reverse S-shaped scoliosis redemonstrated along with accentuated midthoracic kyphosis. 2. No vertebral compression collapse or malalignment. 3. Scattered facet arthropathy. The hyperostotic changes and spinal curvature results in variable neuroforaminal stenoses as outlined above, moderate to severe on the right at T4-T5 and T9-T10. Moderate narrowing of both sides mentioned above. LUMBAR SPINE: 4. Previous L1 and L3 vertebral plasties. Mild retropulsion into the ventral spinal canal is similar at both of these levels. Mild superior endplate deformity of L2 also remains unchanged. No significant spinal canal stenosis. By CT. 5. Hypertrophic facet arthropathy throughout. Moderate to advanced degenerative disc disease at L4-L5 and mild elsewhere throughout the lumbar spine. 6. Unchanged trace grade 1 retrolisthesis L4-L5. 7. Moderate bilateral neural foraminal stenoses at L4-L5. Mild elsewhere throughout the lumbar spine. XRay taken on 02/06/22 of Lumbar Spine and Pelvis: Films reviewed today and remain unchanged from previous studies performed on 08/22/21 as followed: images reviewed in the office with the patient demonstrate status post kyphoplasty L1 and L3. There is vertebral compression fracture noted at L2 as well as T12 with anterior wedging about 30-40% compressed. There is spondylosis throughout the lumbar spine as well which is noted. There is severe distal generation at L4-L5 with collapse. There is no other fractures or dislocations noted at this time no instability on flexion-extension films. No lesions. AP pelvis demonstrates congruent level pelvis bilateral hip osteoarthritic changes proximal portion of the femoral plate noted on the left-hand side no issues noted Outside MRI scan with and without contrast from 05/10/2021 of Lumbar Spine: images reviewed in the office this MRI is incomplete with only T1 sagittal and T1 axial views. Of these the previous compression fractures are mentioned as well as collapse. This MRI does not offer any increased diagnostic value at this time. MRI from 05/03/2021 of the lumbar spine is reviewed. This is prior to kyphoplasty. This shows what appears to be more likely Schmorl's nodes as opposed to compression fractures at L3 and L1 as well as L2 these do not show increased signal uptake within the vertebral bodies. These are unlikely compression fractures. Patient has marrow conversion throughout her lumbar spine as well her sacrum shows marrow conversion as well there Modic endplate changes L4-L5 with disc degeneration and severe disc collapse. No severe stenosis is noted no other fractures or dislocations noted. CT scan from 09/11/2021 of the thoracolumbar spine: Images reviewed. Post surgical changes noted with kyphoplasty at L1 and L3. There is some endplate changes in L2 as well. No new fractures noted at this time. Overall alignment is stable at this time. No stenotic lesions. On physical exam, Ms. Chiang demonstrates: a continued ache-like pain throughout the low back, most prominent upon the left side. She described her low back pain as severe today. She notes that her pain radiates down into the bilateral lower extremities. She notes increasing leg pain and weakness over the last 2 to 3 weeks. The patient denies experiencing any noticeable numbness or tingling throughout the lower extremities at this time. She states her symptoms are exacerbated by all activity, which makes it very difficult for her to complete daily tasks. The patient reports experiencing severe sleep disturbances related to her ongoing pain and associated symptoms. The patient notes that her symptoms ave started to very significantly affect her overall quality of life. I have explained to the patient that as their condition progresses it will cause further neurological deficits and eventual paralysis. Based on the patients imaging, physical exam, and the rapid progression and disabling nature of their symptoms, at this time I recommend surgery in the form of a: Revision [id number] Decompression and Fusion. I discussed the risk and benefits of this procedure at length with Ms. Chiang. The patient agreed to considered pursuing the procedure above mentioned. Prior to surgery, she should follow up with her PCP (Cardio, ID, IM etc) for clearance. Questions were invited and answered, and the patient wishes to proceed as outlined below. Currently, I am recommendin.Revision [id number] Decompression and Fusion 2.Follow up with PCP for surgical clearance 3.Review of surgical risks and benefits as well as an educational packet on the proposed surgical procedure. Risks: All surgical procedures come with inherent risks, including those related to positioning, anesthesia, intraoperative findings, and postoperative comp lications. It is important to understand that surgery does not come with any guarantee of a successful outcome as complications and adverse events are always possible. The patient was given a handout in office today discussing the surgical procedure and risks associated with the intervention, both of which were discussed with the patient. These risks include but are not limited to the following: * Experiencing same, different or even worse symptoms in back, neck, arms, or legs compared to before surgery. Requiring further surgery or other forms of treatment presently or at some time in the future at same or other levels of the intended spine surgery. On an extreme but fortunately relatively rare basis severe complication such as blindness, stroke, heart attack, temporary and/or permanent nerve injury, paralysis, coma, or may occur, sometimes without known explanation. Surgical complications may include but are not limited to risk of infection, fluid accumulation in the surgical dissection site, including a seroma or hematoma, that requires additional surgery, wound drainage, bleeding, new numbness or weakness, vision changes/loss, spinal fluid leakage, non-healing and/or infected incision, headaches, difficulty or inability to swallow, hoarseness, hemopneumothorax, pneumothorax, impotence, retrograde ejaculation, vaginal dryness; injury to nerves, spinal cord, blood vessels, lymphatics or other vital organs (i.e., bowel injury, injury to the great vessels); heterotopic bone formation; complications related to the hardware such as screws, rods, cages including misplaced hardware, device failure, instrumentation at the wrong spine level, hardware fracture/breakage, or hardware loosening; vertebral failure of the spinal column above or below the newly placed hardware; retained surgical instrumentations or devices and the need for further surgery. * Medical risks of the planned spine surgery include but are not limited to generalized Infections to the whole body or local areas outside of the surgical site (sepsis), heart attack, bleeding, anaphylaxis, meningitis, seizure, epilepsy, hearing loss, burn hyde, laceration of the head or other areas of the body, bruising, hypersensitivity of the skin, bladder over distension; allergic reaction; shoulder injury related to positioning; fat, blood and air clots to other areas of the body like heart, lungs, brain; failure of internal organs such as lungs, kidneys, liver and excessive bleeding. If blood transfusions are necessary, note that transfusions may cause intolerance reactions such as anaphylaxis or other complex reactions. Despite best efforts, the results of spine surgery might not heal in terms of bone, soft tissues such as skin, fascia, ligaments, and joints. Additionally, in order to achieve best possible results, spine surgery may be carried out beyond the initially planned levels and involve decompression, fusion including insertion of hardware at levels other than the original intended area of surgical interest change some portions of the procedure in order to ensure the best possible outcomes. With spine surgery and spinal fusion, there are different off label uses of instrumentation (devices, implants and hardware) as well as biological substances (bone morphogenic proteins, demineralized bone matrix) as well as using extra bone from allograft sources (i.e. cadaver bone) or autograft (iliac crest bone, ribs, or the spine itself). The patient has been given information about these practices and their inherent risks and benefits. [facility] is an educational center that serves as a training facility for neurosurgical and orthopedic MICROELECT[employer] TECHNICIAN and Nursing students. Physician assistants are medically trained surgical providers who function in the outpatient, inpatient, and operating room setting under the direct supervision of the attending surgeon. [facility] has multiple operating rooms with single and overlapping r ooms running daily. They currently function under the required guidelines as produced by the Senate Finance Committee with regards to the overlapping rooms and will continue to comply with changes to this policy as they occur. The requirements include and are complied with as follows: (1) the critical portions of the overlapping rooms will not occur at the same time, (2) the attending physician will be physically present during the critical portions of the procedure and immediately available during the entire case, and (3) a back-up attending is designated should the primary attending not be immediately available. The patient has had a chance to review all the listed information, has been given print outs detailing this information, and has had all his/her questions answered to their satisfaction. It was my pleasure to have seen and examined Ms. Chiang. In our visit today we have had a chance to go over my understanding of our patient's current condition, the natural course history without intervention and various interventional options. Questions were invited and answered, and the patient wishes to proceed as outlined above. I have seen and examined the patient for 25 minutes and we have spent more than 50% of the time in repeat and detailed counseling about the patient's condition, its natural course history with out and as much as can be predicted with surgery and re-review of various surgical treatment options. In conclusion, Ms. Chiang requested we proceed with the above suggested surgery and are willing to accept risks and limitations of the suggested surgery as nature of the disease process and our best attempts at treatment for the condition. Thank you again for allowing us to be part of your patient's care. Please don't hesitate to contact me if you have any further questions. Follow- up: Post procedure Patient Education: (Informational booklet, instructions, etc) given at today's appointment: Yes .ED:Patient Education: Y Medications Reviewed: YES In our visit today Ms. Chiang and I have had a chance to go over my understanding of the patient's current condition, the natural course history without intervention and various interventional options. Questions were invited and answered, and the patient wishes to proceed as outlined above. I will be sure to keep you updated afterMs. Chiang returns here for further follow-up. Thank you again for your referral. Please do not hesitate to contact me if you have any further questions. Signed and authenticated by: Bertin Guzman [facility] [address] [place] [phone] This message is confidential, intended only for the named recipient(s) and may contain information that is privileged or exempt from disclosure under applicable law. If you are not the intended recipient(s), you are notified that the dissemination, distribution or copying of this information is strictly prohibited. If you received this message in error, please notify the sender then delete this message. Patient verbalizes understanding of the information discussed. The above note was initiated by Swathi Levin, physician recording account management assistant for Dr. Bertin Flores. This note has been reviewed by Dr. Flores, who has made his personal changes and impressions for this document. CC: ZUNILDA Benitez # SIGNED BY Bertin Flores (GOO)03/31/2023 06:48AM Past Medical History Past Medical History: Blood Disorder, Deep Vein Thrombosis (DVT), Musculoskeletal Disorder, Osteoarthritis (OA), Thyroid Disorder Additional Past Medical History / Comment(s): IRON DEFICIENCY ANEMIA. Mild cardiac valve regurgitation. Hx 2-3 blood clots in left leg after knee replacement surgery 11/23/18. Left ankle swelling. Osteoporosis. Hx thyroid nodules. History of Any Multi-Drug Resistant Organisms: None Reported Past Surgical History: Back Surgery, Bariatric Surgery, Joint Replacement, Orthopedic Surgery Additional Past Surgical History / Comment(s): Bilateral shoulder surgery, gastric bypass(09/27/1999), left knee replacement, left femur surgery after fall after knee replacement, left thyroidectomy. Past Anesthesia/Blood Transfusion Reactions: No Reported Reaction Past Psychological History: Anxiety, Bipolar, Depression Smoking Status: Former smoker Past Alcohol Use History: Heavy Additional Past Alcohol Use History / Comment(s): Quit smoking 07/11/1991, smoked for 15 yrs. Hx heavy drinking 3 times a week for 10 yrs, quit Apr 2014. Past Drug Use History: None Reported - Past Family History Mother Family Medical History: No Reported History Sister(s) Family Medical History: Pulmonary Embolus Medications and Allergies Home Medications Medication Instructions Recorded Confirmed Type traZODone HCL 150 mg PO HS 04/10/16 03/30/23 History QUEtiapine [SEROquel] 300 mg PO HS 30 Days #90 tab 02/08/18 03/30/23 Rx hydrOXYzine pamoate [Vistaril] 25 mg PO BID PRN #60 cap 02/08/18 03/30/23 Rx lamoTRIgine [LaMICtal] 200 mg PO BID 30 Days #60 tablet 02/08/18 03/30/23 Rx Glucosam/Patrice-Msm1/C/Cesar/Bosw 1 each PO DAILY 03/30/23 03/30/23 History [Glucosamine-Chondroitin Tablet] Levothyroxine Sodium [Synthroid] 88 mcg PO QAM 03/30/23 03/30/23 History Multivitamin/Iron/Folic Acid 1 each PO DAILY 03/30/23 03/30/23 History [Centrum Adults Tablet] Turmeric (Unknown Dose) 1 tab PO DAILY 03/30/23 03/30/23 History Vitamin C (Unknown Dose) 1 tab PO DAILY 03/30/23 03/30/23 History oxyCODONE ER [OxyCONTIN] 5 mg PO Q4H PRN 03/30/23 03/30/23 History Allergies Allergy/AdvReac Type Severity Reaction Status Date / Time No Known Allergies Allergy Verified 03/31/23 06:13 Physical Examination Osteopathic Statement: *. No significant issues noted on an osteopathic structural exam other than those noted in the History and Physical/Consult.
[2023-03-31] MEDS ORDERED: DEXAMETHASONE SOD PHOSPHATE 4 MG/ML 1 ML VIAL IVP ONE (07:20)
[2023-03-31] MEDS ORDERED: ROCURONIUM 10 MG/ML (5 ML VIAL) IV ONE (07:25)
[2023-03-31] MEDS ORDERED: PHENYLEPHRINE 10 MG/ML VIAL ONE (07:25)
[2023-03-31] MEDS ORDERED: MIDAZOLAM 2 MG/2 ML VIAL ONE (07:25)
[2023-03-31] MEDS ORDERED: HYDROmorphone (PF) 1 MG/ML ONE (07:25)
[2023-03-31] MEDS ORDERED: ONDANSETRON 4 MG/2 ML VIAL ONE (07:25)
[2023-03-31] MEDS ORDERED: DEXAMETHASONE SOD PHOSPHATE 4 MG/ML 1 ML VIAL ONE (07:25)
[2023-03-31] MEDS ORDERED: TRANEXAMIC 1,000 MG/100ML-NACL PREMIX BAG ONE (07:25)
[2023-03-31] MEDS ORDERED: PROPOFOL 10 MG/ML 20 ML VIAL IV ONE (07:25)
[2023-03-31] MEDS ORDERED: fentaNYL (PF) 50 MCG/ML 2 ML AMP ONE (07:25)
[2023-03-31] MEDS ORDERED: NEOSTIGMINE 1 MG/ML 10 ML VIAL ONE (07:25)
[2023-03-31] MEDS ORDERED: ePHEDrine 50 MG/ML 1 ML VIAL ONE (07:25)
[2023-03-31] MEDS ORDERED: SUCCINYLCHOLINE CHLORIDE 200 MG/10 ML VIAL IV ONE (07:25)
[2023-03-31] MEDS ORDERED: LACTATED RINGERS 1,000 ML IV ONE ×3 (07:30→13:07)
[2023-03-31] MEDS ORDERED: GELATIN SPONGE,ABSORB (LARGE) 1 EACH SPONGE TOPICAL ONE (08:56)
[2023-03-31] MEDS ORDERED: THROMBIN (BOVINE) 5,000 UNIT VIAL TOPICAL ONE ×2 (08:57)
[2023-03-31 08:58] LABS: Anisocytosis Moderate; Basophils # (A) 0.1 k/uL (0-0.2); Basophils % (A) 1 %; Eosinophils # (A) 0.2 k/uL (0-0.7); Eosinophils % (A) 3 %; HCT 34.3 % (34.0-46.0); HGB 11.1 gm/dL (11.4-16.0); Lymphocytes # (A) 0.9 k/uL (1.0-4.8); Lymphocytes % (A) 15 %; MCH 29.4 pg (25.0-35.0); MCHC 32.3 g/dL (31.0-37.0); MCV 90.8 fL (80.0-100.0); Mean Platelet Volume 7.1; Monocytes # (A) 0.3 k/uL (0-1.0); Monocytes % (A) 5 %; Neutrophils # (A) 4.7 k/uL (1.3-7.7); Neutrophils % (A) 76 %; Platelet Count 260 k/uL (150-450); RBC 3.77 m/uL (3.80-5.40); RDW 20.1 % (11.5-15.5); WBC 6.2 k/uL (3.8-10.6)
[2023-03-31] MEDS ORDERED: ceFAZolin 3,000 MG in SODIUM CHLORIDE 0.9% IRRIGATIO 3,000 ML IRRIGATION ONE (09:21)
[2023-03-31] MEDS ORDERED: GENTAMICIN 80 MG in SODIUM CHLORIDE 0.9% IRRIGATIO 3,000 ML IRRIGATION ONE (09:22)
[2023-03-31] MEDS ORDERED: VANCOMYCIN 1,000 MG VIAL MISCELLANE ONE (10:18)
--- NOTE | 2023-03-31 13:16 | XR ---
EXAM TYPE: LUMBAR SPINE X RAY SERIES COMPARISON: NONE HISTORY: Fusion TECHNIQUE: 10 limited resolution intraoperative views are submitted. FINDINGS: Intraoperative changes are seen including vertebral plasty. Resolution\exam is limited. IMPRESSION: 1. See above.
--- NOTE | 2023-03-31 13:17 | FL ---
EXAMINATION TYPE: FL guidance operating room DATE OF EXAM: 03/31/2023 HISTORY: Fluoroscopy time Total dose area product (DAP) in uGy*m?, mGy*cm? (or similar): 3113.9815 IMPRESSION: 1. Fluoroscopy time.
--- NOTE | 2023-03-31 13:55 | P.ANPRN ---
Procedure Note - Anesthesia - Invasive Line Right Central Line Time Out Performed: Yes Date of Procedure: 03/31/23 Time of Procedure: 07:11 Location of Patient: PreOp Preparation: Sterile Prep, Sterile Dressing Central Line Location: Internal Jugular Ultrasound Used: No Purpose - Visualization and Identification of Vasculature: No Image Stored and Saved: No Narrative: Central line placement per sterile protocol utilized.
[2023-03-31] MEDS ORDERED: bisacodyL 10 MG SUPP RECTAL PRN (13:57)
[2023-03-31] MEDS ORDERED: NA PHOS,M-B/NA PHOS,DI-BA 133 ML ENEMA RECTAL PRN (13:57)
[2023-03-31] MEDS ORDERED: HYDROmorphone 0.5 MG/0.5 ML SYRINGE IVP PRN (13:57)
[2023-03-31] MEDS ORDERED: CYCLOBENZAPRINE 5 MG TAB PO PRN (13:57)
--- NOTE | 2023-03-31 13:59 | P.OP ---
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, thoracolumbar region M48.062 Spinal stenosis, lumbar region with neurogenic claudication M54.5 MECHANICAL LOW BACK PAIN COMPLEX MEDICAL PATIENT L1-S1 Postoperative Diagnosis: M48.56XG Collapsed vertebra, not elsewhere classified, lumbar region, subsequent encounter for fracture with delayed healing M48.45XS Fatigue fracture of vertebra, thoracolumbar region, sequela of fracture 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 08327 ARTHRODESIS, COMBINED POSTERIOR OR POSTEROLATERAL TECHNIQUE WITH POSTERIOR INTERBODY TECHNIQUE INCLUDING LAMINECTOMY AND/OR DISCECTOMY SUFFICIENT TO PREPARE INTERSPACE (OTHER THAN FOR DECOMPRESSION), SINGLE INTERSPACE, LUMBAR 3 TO 4 18124/59 ARTHRODESIS, POSTERIOR OR POSTEROLATERAL TECHNIQUE, SINGLE INTERSPACE; THORACIC 10-11 19141 LAMINECTOMY, FACETECTOMY, OR FORAMINOTOMY (UNILATERAL OR BILATERAL WITH DECOMPRESSION OF SPINAL CORD, CAUDA EQUINA AND/OR NERVE ROOT[S] [EG, SPINAL OR LATERAL RECESS STENOSIS]), DURING POSTERIOR INTERBODY ARTHRODESIS, LUMBAR; SINGLE VERTEBRAL SEGMENT LUMBAR3 TO LUMBAR 4 54649 POSTERIOR SEGMENTAL INSTRUMENTATION (EG, PEDICLE FIXATION, DUAL RODS WITH MULTIPLE HOOKS AND SUBLAMINAR WIRES); 7 TO 12 VERTEBRAL THORACIC 10 TO PELVIS. 28313 PELVIC FIXATION (ATTACHMENT OF CAUDAL END OF INSTRUMENTATION TO PELVIC BONY STRUCTURES) OTHER THAN SACRUM 65417 x3 INSERTION OF INTERBODY BIOMECHANICAL DEVICE(S) (EG, SYNTHETIC CAGE, MESH) WITH INTEGRAL ANTERIOR INSTRUMENTATION FOR DEVICE ANCHORING (EG, SCREWS, FLANGES), WHEN PERFORMED, TO INTERVERTEBRAL DISC SPACE IN CONJUNCTION WITH INTERBODY ARTHRODESIS, EACH INTERSPACE; L3-4, L4-5, L5-S1. --------- [id number] ARTHRODESIS, COMBINED POSTERIOR OR POSTEROLATERAL TECHNIQUE WITH POSTERIOR INTERBODY TECHNIQUE INCLUDING LAMINECTOMY AND/OR DISCECTOMY SUFFICIENT TO PREPARE INTERSPACE (OTHER THAN FOR DECOMPRESSION), ADDITIONAL LEVELS, LUMBAR 4-5 AND L5-S1. 88019 x4 ARTHRODESIS, POSTERIOR OR POSTEROLATERAL TECHNIQUE, SINGLE INTERSPACE; EACH ADDITIONAL INTERSPACE T11-12, T12-L1, L1-2, L2-3. 63876 X3 LAMINECTOMY, FACETECTOMY, OR FORAMINOTOMY (UNILATERAL OR BILATERAL WITH DECOMPRESSION OF SPINAL CORD, CAUDA EQUINA AND/OR NERVE ROOT[S] [EG, SPINAL OR LATERAL RECESS STENOSIS]), DURING POSTERIOR INTERBODY ARTHRODESIS, LUMBAR; EACH ADDITIONAL SEGMENT, LUMBAR 2-3; LUMBAR 4-5 AND LUMBAR 5-SACRAL1 00489 STEREOTACTIC COMPUTER-ASSISTED (NAVIGATIONAL) PROCEDURE; SPINAL; ALDO ARIEL FOR SCREW PLACEMENT AND CAGE PLANNING CPTMOD 22 THIS CASE TOOK 75% LONGER THAN EXPECTED DUE TO CORMORBID CONDITIONS, EXTENT OF LUMBAR DISEASE AND HIGH TECHNICALITY OF THE CASE. USE OF IONM 58170 CONTINUOUS INTRAOPERATIVE NEUROPHYSIOLOGY MONITORING, FROM OUTSIDE THE OPERATING ROOM (REMOTE OR NEARBY) OR FOR MONITORING OF MORE THAN ONE CASE WHILE IN THE OPERATING ROOM, PER HOUR Implants: -ALDO EVEREST RUBEN AND SCREW SYSTEM -GLOBUS SABLE CAGES X3 15 DEG, MED, 8 AND 10 MM -MAGNATOS, IFACTOR, ARTHROCELL, ALLOCELL, AUTORGRAFT. Anesthesia: GETA Surgeon: Bertin Flores Clinical Research Monitor #1: Hiram Lew (WAS PRESENT AND ASSISTED WITH ALL ASPECTS OF THE CASE FROM POSITION TO CLOSURE) Estimated Blood Loss (ml): 700 IV fluids (ml): 2,500 (2 U PRBC INTRAOPERATIVE) Urine output (ml): 450 Pathology: none sent Condition: stable Disposition: PACU Indications for Procedure: Ms. Chiang is presenting for evaluation of lumbar pain. It was my pleasure to have seen and examined Ms. Chiang. In our visit today we have had a chance to go over subjective complaints, physical examination findings and treatments including the natural course history without intervention and various interventional options. The patients imaging demonstrates: Thoracic/Lumbar CT scan taken on 08/22/22 at [facility]: THORACIC SPINE: 1. Reverse S-shaped scoliosis redemonstrated along with accen tuated midthoracic kyphosis. 2. No vertebral compression collapse or malalignment. 3. Scattered facet arthropathy. The hyperostotic changes and spinal curvature results in variable neuroforaminal stenoses as outlined above, moderate to severe on the right at T4-T5 and T9-T10. Moderate narrowing of both sides mentioned above. LUMBAR SPINE: 4. Previous L1 and L3 vertebral plasties. Mild retropulsion into the ventral spinal canal is similar at both of these levels. Mild superior endplate deformity of L2 also remains unchanged. No significant spinal canal stenosis. By CT. 5. Hypertrophic facet arthropathy throughout. Moderate to advanced degenerative disc disease at L4-L5 and mild elsewhere throughout the lumbar spine. 6. Unchanged trace grade 1 retrolisthesis L4-L5. 7. Moderate bilateral neural foraminal stenoses at L4-L5. Mild elsewhere throughout the lumbar spine. XRay taken on 02/06/22 of Lumbar Spine and Pelvis: Films reviewed today and remain unchanged from previous studies performed on 08/22/21 as followed: images reviewed in the office with the patient demonstrate status post kyphoplasty L1 and L3. There is vertebral compression fracture noted at L2 as well as T12 with anterior wedging about 30-40% compressed. There is spondylosis throughout the lumbar spine as well which is noted. There is severe distal generation at L4-L5 with collapse. There is no other fractures or dislocations noted at this time no instability on flexion-extension films. No lesions. AP pelvis demonstrates congruent level pelvis bilateral hip osteoarthritic changes proximal portion of the femoral plate noted on the left-hand side no issues noted Outside MRI scan with and without contrast from 05/10/2021 of Lumbar Spine: images reviewed in the office this MRI is incomplete with only T1 sagittal and T1 axial views. Of these the previous compression fractures are mentioned as well as collapse. This MRI does not offer any increased diagnostic value at this time. MRI from 05/03/2021 of the lumbar spine is reviewed. This is prior to kyphoplasty. This shows what appears to be more likely Schmorl's nodes as opposed to compression fractures at L3 and L1 as well as L2 these do not show increased signal uptake within the vertebral bodies. These are unlikely compression fractures. Patient has marrow conversion throughout her lumbar spine as well her sacrum shows marrow conversion as well there Modic endplate changes L4-L5 with disc degeneration and severe disc collapse. No severe stenosis is noted no other fractures or dislocations noted. CT scan from 09/11/2021 of the thoracolumbar spine: Images reviewed. Post surgical changes noted with kyphoplasty at L1 and L3. There is some endplate changes in L2 as well. No new fractures noted at this time. Overall alignment is stable at this time. No stenotic lesions. On physical exam, Ms. Chiang demonstrates: a continued ache-like pain throughout the low back, most prominent upon the left side. She described her low back pain as severe today. She notes that her pain radiates down into the bilateral lower extremities. She notes increasing leg pain and weakness over the last 2 to 3 weeks. The patient denies experiencing any noticeable numbness or tingling throughout the lower extremities at this time. She states her symptoms are exacerbated by all activity, which makes it very difficult for her to complete daily tasks. The patient reports experiencing severe sleep disturbances related to her ongoing pain and associated symptoms. The patient notes that her symptoms ave started to very significantly affect her overall quality of life. I have explained to the patient that as their condition progresses it will cause further neurological deficits and eventual paralysis. Based on the patients imaging, physical exam, and the rapid progression and disabling nature of their symptoms, at this time I recommend surgery in the form of a: Revision N96-Wcrcsm Decompression and Fusion. I discussed the risk and benefits of this procedure at length with Ms. Chiang. The patient agreed to considered pursuing the procedure above mentioned. Prior to surgery, she should follow up with her PCP (Cardio, ID, IM etc) for clearance. Questions were invited and answered, and the patient wishes to proceed as outlined below. Currently, I am recommendin.Revision B64-Ulzugp Decompression and Fusion Description of Procedure: THORACIC 10 TO PELVIS DECOMPRESSION AND FUSION ARIEL The patient was seen and examined in the preoperative area. All preoperative protocols were followed. Informed consent was obtained, risks and benefits of the procedure were discussed at length. Risks including bleeding infection damage to the surrounding tissue and risk of re-operation were discussed with the patient. Risk of anesthesia up to and including was discussed with the patient. These are outlined in the risk review. They were willing to accept these risks and all the risks of surgery. The patient was given a weight-based dose of antibiotics in the form of 3 g Ancef. The patient was seen and evaluated by the anesthesia team who deemed them fit for surgery. The site was marked, the patient was willing to proceed with the procedure. The patient was transferred to the operative suite by the Department of anesthesia. They were then drifted off to sleep by the department anesthesia and GETA was performed. The patient tolerated this well. Almendarez catheter was placed by nursing staff, a-traumatically. Once confirmation of lines and ventilation the patient was transferred to a prone Trios spine table very carefully. The head was secured and stable. Xray confirmed alignment. All bony prominences including wrists, elbows, axilla, chest, hips, and thighs, and feet were padded very well. Special attention was paid to the genitalia, and these were padded accordingly. SCDs were placed on bilateral lower extremities and were connected. Arms were well padded and placed at 90/90 up and out and well padded. Safety strap and tape placed on the patient. Once in position, again we confirmed good ventilation capabilities and that lines were running appropriately. The patients lumbosacral pelvic was then exposed. Hair was removed for incision. 1010s were placed outlining the incision site. Standard alcohol was used to clean the incision site and allowed to dry. C-arm was used to bio-braden the patient and confirm level for incision which was marked with a skin marker. Operative briefing was performed with all teams and everyone in agreement to proceed. The patient was then prepped and draped in a normal sterile fashion. Timeout was then performed, and all parties agreed with the procedure to be performed. Midline skin incision was then made over the previously bookmarked area and dissection taken down to the lumbosacral fascia which was identified and cleaned with a foster. Once midline was identified, fasciotomy was made over the SP of [id number]. Subperiosteal dissection was then taken down over the lamina and facet joints and TPs were exposed and trough made posterolateral. TPs were then decorticated L1-S1 and sacral ala with a high speed wellington for lateral fusion. Dissection was taken out over the sacrum to the pelvis. SI joint identified and modified Chaney starting point for pelvic screws identified as well. Retractors placed. Wound was irrigated and lateral image with penfield 4 placed at the pars of L4 confirmed levels for operation. SP clamp was then placed for the [facility] navigation tracker and secured at L2 for the first set of screws. The wound was then filled with NSS and Z-drape placed. A 3D Zhiem spin was then obtained and registered. Once confirmation of accuracy screws were then placed from T10-L2 using navigation. Navigated high speed wellington was used to make a engine pilot hole followed by a navigated awl-tap passed through the pedicle into the body. A ball tip probe then confirmed within the pedicle. Globus Screws then measured and placed using a navigated screwdriver. After screws were placed from T10-L2 the tracker was replaced at S1 and a second 3D Zhiem spin was then obtained and registered. Once confirmation of accuracy screws were then placed from L3-Pelvis using navigation. AP image confirmed safe placement of screws. Lateral images as well as navigation were then used to place bilateral pelvic screws. Starting point selected for S2Ai trajectory for pelvic screws. Navigat ion was then used to create starting point followed by navigated awl tap followed by navigated screw. Ball tip prob confirmed within good bone. Screw was then measured and selected and placed using navigated residential driver. This was repeated on the contralateral side. Screws were then visualized and were safe. Flouroscopy then confirmed all screw placements. Screws were then tested, and reliably tested screws tested above 18 mA. The wound was irrigated and attention was turned to decompression, correction and interbody fusion. Starting at L3-4, laminectomy, complete facetectomy and foraminotomies were performed using high speed bur, Kerrison rongure. There was exuberant bone formation, osteophytes and scar tissue surrounding these joints as well as the dura. Once exposed the neural elements were protected and an Osteotome was used to make track into space and for complete disc removal. Sequential shaving was then done until discectomy was complete and adequate height gained. Cage was then selected based on shaving and trials. Bleeding endplates were encountered and cartilage removed. Autograft, allograft were then placed anterior to the cage. The cage was then impacted into place under lateral imaging while protecting neural elements. The cage was then expanded into position and showed good lift and correction. Jewish of lordosis and height achieved. Meticulous hemostasis then performed. Cage was backfilled with DBM and the area irrigated. We then proceeded to L4-5. At L4-5, bilateral laminectomy, complete facetectomy and foraminotomy was performed as described above. Again, exuberant scar tissue and bone formation was encountered and at this level as well due to previous surgery and disease. There was also a large disc osteophyte complex that was identified once disc space was found. The dura was carefully dissected off this anteriorly and b/l. Once encountered, the disc space was then accessed in a similar fashion and neural elements protected. Intradiscal, 3 column osteotomies, for deformity correction was then performed again at this level as described above. Once completed and complete discectomy performed there was good mobility at this level. Cage was then sized and selected. Autograft and allograft was then placed anterior in the disc space and the cage was then inserted and impacted into place under lateral. AP image, as before, was taken to ensure midline placement. The cage was then expanded into position. The wound was irrigated. Meticulous hemostasis then performed, and attention turned to L3-4. At L5-S1 again laminectomy, complete facetectomy and foraminotomy were performed. The elements were then protected, and disc space accessed. Sequential shaving performed until desired height and lordosis. Cage selected, and graft placed anterior to the cage within the disc space. Cage was then placed under lateral image, expanded and had good height, lordosis and deformity correction. The wound was irrigated, and meticulous hemostasis performed once again. We then proceeded to L2-3 level. At L2-3 again bilateral laminectomy, facetectomy and foraminotomy were performed. Facets and TP burred for PL fusion. The wound was irrigated, and meticulous hemostasis performed once again. At L5 S1 the dura was so thin there was leakage from this area so it was patched with tisseal and a fat graft. See below for details. This allowed for a tight seal and no further leaking. AP imaging confirmed good placement of all cages and good reduction and coronal balance restored. Screws all in good position. Attention was then drawn to ruben placement and further reduction. Rods were selected, measured, cut and bent to appropriate lordosis. They were then secured into pelvic screws b/l. Sequential reduction then done into each screw and set screw placed. Set screws were then final tightened and lateral image showed good lordosis reduction with increase around 15-20 deg from starting. Once rods were secured, cross links were selected and placed and final tightened. The wound was then irrigated with 3L Ancef irrigation, 3L gentamicin irrigation and 3L NSS. Tisseal was placed on the dura along with a fat graft to seal the dura as it was so thin it was exuding CSF from the posterior central portion at L5-S1. Surgicel was then placed on the dura, followed by more tissea. Valsalva to 40 mm Hg was done and there was no further leaking. Then, in the posterolateral gutter was placed, MagnatOs, Autograft and allograft. This was impacted into position and surgical placed over it. 2g Vanco powder was then placed deep in the wound. We then proceeded with layered closure. #1 PDS placed in the deep fascia followed by a running unidirectional #1 stratafix. 0 Vicryl placed in the deep subq, alonng with running 0 stratafix. 2-0 placed in the superficial subq and juancarlos placed in the skin. The wound edges approximated very well. The wound was then cleaned with ETOH and dressed with optifoam dressing, drain sponges and tegaderms. No drian placed due to dural issue. IONM confirmed no changes. The patient was then transferred off the [facility] spine table to their hospital bed a-traumatically. [facility] condition having tolerated the procedure with no complications.
[2023-03-31] MEDS: HYDROmorphone 0.5 MG/0.5 ML SYRINGE IVP PRN ×4 (14:09→15:20)
--- NOTE | 2023-03-31 14:31 | XR ---
EXAMINATION TYPE: XR chest 1V portable DATE OF EXAM: 03/31/2023 COMPARISON: 03/13/2012 HISTORY: Line placement TECHNIQUE: Single frontal view of the chest is obtained. FINDINGS: Right-sided IJ central line tip overlying cavoatrial junction. No sizable pneumothorax. Perez rgical juancarlos and postsurgical change involving the vertebral column. There is bilateral consolidati on. No overt failure. Diffuse osteopenia and remote trauma to right shoulder. Underlying COPD. Small amount of air is seen in the soft tissues of the right neck which could be postprocedural. Correlate clinically. IMPRESSION: 1. Central line appears in good position with no sizable pneumothorax. 2. COPD with bilateral lower lobe infiltrate or atelectasis.
[2023-03-31 16:12] LABS: Glucose,Whole Blood 173 mg/dL (70-110)
[2023-03-31] MEDS: ONDANSETRON 4 MG/2 ML VIAL IVP PRN (16:38)
[2023-03-31] MEDS ORDERED: CLEVIDIPINE BUTYRATE 25 MG in EMPTY BAG 1 BAG IV SCH (16:45)
--- NOTE | 2023-03-31 16:56 | P.CNPUL ---
History of Present Illness Consult date: 03/31/23 Requesting physician: Bertin Flores Reason for consult: other (Critical care management) Chief complaint: Lumbar pain History of present illness: This is a 68-year-old female patient with a known history of anxiety/depression, bipolar disorder, former smoker who is been having significant lumbar back pain and was brought in today electively for a T10 to pelvis revision decompression and fusion. Due to the length of her surgery she was admitted to the intensive care unit postoperatively. Currently she is laying flat in bed. Awake and alert in no acute distress. Maintaining O2 saturations in the 90s on 2 L/m per nasal cannula. Somewhat hypertensive. She did require 2 units of packed red blood cells. White count 6.2. Hemoglobin 11.1. Platelets 260. Glucose 173. Lactated Ringer's at 20 MLs per hour. She has a right brachial arterial line in place. Right internal jugular triple-lumen catheter in place. She is receiving cefazolin. Chest x-ray revealed no pneumothorax. Evidence of COPD with bilateral lower lobe infiltrate/atelectasis. Review of Systems REVIEW OF SYSTEMS: CONSTITUTIONAL: Denies any recent significant weight loss or weight gain. EYES: Denies change in vision. EARS, NOSE, MOUTH, THROAT: Denies headaches, denies sore throat. CARDIOVASCULAR: Denies chest pain, palpitations or syncopal episodes. RESPIRATORY: Denies shortness of breath, cough, congestion or hemoptysis. GASTROINTESTINAL: Denies change in appetite, denies abdominal pain GENITOURINARY: Denies hematuria, denies infections. MUSKULOSKELETAL: Positive for back pain. INTEGUMENTARY: Denies rash, denies eczema. NEUROLOGICAL: Denies recent memory loss, no recent seizure activity. PSYCHIATRIC: Denies anxiety, denies depression. HEMATOLOGIC/LYMPHATIC: Denies anemia, denies enlarged lymph nodes. Past Medical History Past Medical History: Blood Disorder, Deep Vein Thrombosis (DVT), Musculoskeletal Disorder, Osteoarthritis (OA), Thyroid Disorder Additional Past Medical History / Comment(s): IRON DEFICIENCY ANEMIA. Mild cardiac valve regurgitation. Hx 2-3 blood clots in left leg after knee rep lacement surgery 11/23/18. Left ankle swelling. Osteoporosis. Hx thyroid nodules. History of Any Multi-Drug Resistant Organisms: None Reported Past Surgical History: Back Surgery, Bariatric Surgery, Joint Replacement, Orthopedic Surgery Additional Past Surgical History / Comment(s): Bilateral shoulder surgery, gastric bypass(09/27/1999), left knee replacement, left femur surgery after fall after knee replacement, left thyroidectomy. Past Anesthesia/Blood Transfusion Reactions: No Reported Reaction Past Psychological History: Anxiety, Bipolar, Depression Smoking Status: Former smoker Past Alcohol Use History: Heavy Additional Past Alcohol Use History / Comment(s): Quit smoking 07/11/1991, smoked for 15 yrs. Hx heavy drinking 3 times a week for 10 yrs, quit Apr 2014. Past Drug Use History: None Reported - Past Family History Mother Family Medical History: No Reported History Sister(s) Family Medical History: Pulmonary Embolus Medications and Allergies Home Medications Medication Instructions Recorded Confirmed Type traZODone HCL 150 mg PO HS 04/10/16 03/30/23 History QUEtiapine [SEROquel] 300 mg PO HS 30 Days #90 tab 02/08/18 03/30/23 Rx hydrOXYzine pamoate [Vistaril] 25 mg PO BID PRN #60 cap 02/08/18 03/30/23 Rx lamoTRIgine [LaMICtal] 200 mg PO BID 30 Days #60 tablet 02/08/18 03/30/23 Rx Glucosam/Patrice-Msm1/C/Cesar/Bosw 1 each PO DAILY 03/30/23 03/30/23 History [Glucosamine-Chondroitin Tablet] Levothyroxine Sodium [Synthroid] 88 mcg PO QAM 03/30/23 03/30/23 History Multivitamin/Iron/Folic Acid 1 each PO DAILY 03/30/23 03/30/23 History [Centrum Adults Tablet] Turmeric (Unknown Dose) 1 tab PO DAILY 03/30/23 03/30/23 History Vitamin C (Unknown Dose) 1 tab PO DAILY 03/30/23 03/30/23 History oxyCODONE ER [OxyCONTIN] 5 mg PO Q4H PRN 03/30/23 03/30/23 History Allergies Allergy/AdvReac Type Severity Reaction Status Date / Time No Known Allergies Allergy Verified 03/31/23 06:13 Physical Exam Vitals: Vital Signs Temp Pulse Resp BP BP Pulse Ox 03/31/23 16:27 94 L 03/31/23 15:40 74 14 166/90 173/82 99 03/31/23 15:20 84 16 160/82 171/82 99 03/31/23 15:00 83 16 160/82 173/88 97 03/31/23 14:50 84 18 163/72 178/70 99 03/31/23 14:35 86 14 159/73 179/74 98 03/31/23 14:20 82 16 162/71 177/70 99 03/31/23 14:00 84 14 149/70 163/77 98 03/31/23 13:49 81 16 123/70 100 03/31/23 07:16 39 L 16 153/75 100 03/31/23 06:30 98.7 F 62 16 119/57 98 Intake and Output 03/31/23 03/31/23 03/31/23 06:59 14:59 22:59 Intake Total 400 3072 200 Output Total 1050 150 Balance 400 2022 50 Intake: IV 400 2452 200 Blood Product 620 Rc As-1 Unit 310 [id number] Rc As-1 Unit 310 [id number] Output: Urine 350 150 Estimated Blood Loss 700 Other: Weight 87 kg GENERAL EXAM: Alert, 68-year-old female, on 2 L nasal cannula, fairly comfortable in no apparent distress. HEAD: Normocephalic. EYES: Normal reaction of pupils, equal size. NOSE: Clear with pink turbinates. THROAT: No erythema or exudates. NECK: No masses, no JVD. CHEST: No chest wall deformity. LUNGS: Equal air entry with no crackles, wheeze, rhonchi or dullness. CVS: S1 and S2 normal with no audible murmur, regular rhythm. ABDOMEN: No hepatosplenomegaly, normal bowel sounds, no guarding or rigidity. SPINE: No scoliosis or deformity, dressing dry and intact SKIN: No rashes CENTRAL NERVOUS SYSTEM: No focal deficits, tone is normal in all 4 extremities. EXTREMITIES: There is no peripheral edema. No clubbing, no cyanosis. Peripheral pulses are intact. Results - Laboratory Findings CBC and BMP: 03/31/23 08:48 Abnormal lab findings: Abnormal Labs 03/26/23 03/31/23 03/31/23 09:34 08:48 16:10 RBC 3.77 L Hgb 11.1 L RDW 20.1 H Lymphocytes # 0.9 L POC Glucose (mg/dL) 173 H Crossmatch See Detail - Diagnostic Findings Chest x-ray: image reviewed Assessment and Plan Assessment: Lumbar pain, status post elective T10 to pelvis revision decompression and fusion. Postoperative day #0 Hypertension History of anxiety/depression History of bipolar disorder and her graft former smoker Plan: The patient was seen and evaluated Chest x-ray, labs and medications reviewed Currently stable and on 2 L nasal cannula Titrate the FiO2 as tolerated Continue cefazolin Adequate pain control Educated regarding the use of the incentive spirometer May require clevidipine to maintain systolic blood pressure is 140 or less We will continue to follow and make further recommendations based on her clinical status I have personally seen and examined the patient, performed the documentation and the assessment and plan as written. Number of minutes spent on the visit: 20.
[2023-03-31] MEDS ORDERED: ACETAMINOPHEN TAB 500 MG TAB PO SCH (18:00)
[2023-03-31] MEDS ORDERED: hydrOXYzine pamoate 25 MG CAP PO PRN (18:15)
--- NOTE | 2023-03-31 18:22 | P.PN ---
Subjective Progress Note Date: 03/31/23 Patient is a 68-year-old female with history of prior provoked DVTs, thyroid nodules status post left thyroidectomy on thyroid replacement, osteoarthritis, and prior iron deficiency anemia who presented to the hospital for elective T10 to pelvis revision fusion. Intraoperatively the patient required 2 units of packed red blood cells. She had an unremarkable postoperative course and was subsequently transferred to the ICU. On arrival to the ICU she was noted to be hypertensive and the critical care team ordered Klebs to pain to titrate for high blood pressure. Patient seen and examined at bedside. She is awake when I entered the room. She describes her pain as 10 out of 10 and severe. She is asking if it is supposed to feel this bad after surgery. She denies any current lightheadedness, dizziness, chest pain, shortness of breath. She denies any recent cough, cold, fever, flu. She was not using a cane or a walker prior to surgery. Vital signs reviewed General: nontoxic, moderate distress, appears at stated age Derm: warm, dry Eyes: EOMI, no lid lag, anicteric sclera, pupils equal round reactive to light ENT: Nose and ears atraumatic Cardiovascular: S1S2 tachycardic, no murmur, positive posterior tibial pulse bilateral, no edema, capillary refill less than 2 seconds Lungs: clear to auscultation bilateral, no rhonchi, no rales, no wheeze, no accessory muscle use Abdominal: soft, nontender to palpation, no guarding, no appreciable organomegaly Ext: no gross muscle atrophy, no contractures Neuro: CN II-XII grossly intact, light touch intact all 4 extremities, able to wiggle bilateral toes, and moving bilateral arms without difficulties psych: Alert, oriented, appears anxious/upset Assessment/Plan: 68-year-old female status post T10 to pelvis revision. Severe postoperative pain - Case discussed with Dr. Flores. Patient is having significant post-op pain, but falls asleep quickly. We determined the best course of action would be acetaminophen 1000 gm IVPB Q 4 hours scheduled for 24 hours, toraldol 15 mg q6 hours prn pain. Start scheduled gabapentin 300 mg TID and Flexeril scheduled 5 mg PO TID. Continue with Dilaudid 0/5 -1 mg prn q 3 hours depending on pain scale and oxy 5-10 q 4 hours prn depending on pain scale. Tachycardia and elevated BP in a patient without a diagnosis of underlying HTN - Most likely cause is post-op pain, treatment plan as above - follow BP - check stat CBC patient is post 2 units of pRBC intraop. Bipolar disorder -Resume Lamictal 200 mg twice daily, Seroquel 300 mg at night, trazodone 150 mg at night Chronic: Prior history of DVT after knee surgery History of iron deficiency anemia Hypothyroidism-Synthroid 88 mcg Grade 2 diastolic dysfunction, mild AR Imaging: None new Data Review: Preoperative blood work reviewed and a.m. hemoglobin was 11.1. Preop creatinine 0.6 Thank you for allowing us to participate in the care of this pleasant patient. Do not hesitate to contact us with questions. Someone can be reached from the [facility] hospitalist group all hours of the day at [phone] or via [employer]. This dictation was prepared using [employer] voice recognition software. Though every attempt is made to correct errors during dictation some may still exist. Objective - Vital Signs Vital signs: Vital Signs Temp 97.4 F L 03/31/23 16:30 Pulse 104 H 03/31/23 17:00 Resp 8 L 03/31/23 17:00 BP 130/88 03/31/23 17:00 Pulse Ox 90 L 03/31/23 17:00 FiO2 Intake & Output 03/30/23 03/31/23 03/31/23 18:59 06:59 18:59 Intake Total 400 3362 Output Total 1475 Balance 400 1887 Weight 83.915 kg 87 kg Intake: IV 400 2742 Lactated Ringers 1,000 ml 40 @ 20 mls/hr IV .Q24H [facility] Rx#:[id number] ceFAZolin 2 gm In Sodium 50 Chloride 0.9% 50 ml @ 100 mls/hr IVPB Q8HR [facility] Rx# :[id number] Blood Product 620 Rc As-1 Unit 310 [id number] Rc As-1 Unit 310 [id number] Output: Urine 775 Estimated Blood Loss 700 ABP, PAP, CO, CI - Last Documented Arterial Blood Pressure 140/87 - Labs CBC & Chem 7: 03/31/23 08:48 Labs: Abnormal Lab Results - Last 24 Hours (Table) 03/26/23 03/31/23 03/31/23 Range/Units 09:34 08:48 16:10 RBC 3.77 L (3.80-5.40) m/uL Hgb 11.1 L (11.4-16.0) gm/dL RDW 20.1 H (11.5-15.5) % Lymphocytes # 0.9 L (1.0-4.8) k/uL POC Glucose (mg/dL) 173 H (70-110) mg/dL Crossmatch See Detail
[2023-03-31] MEDS: ACETAMINOPHEN IV (For NPO) 1,000 MG in EMPTY BAG 1 BAG IVPB SCH (18:28)
[2023-03-31] MEDS: HYDROmorphone 1 MG/ML 1 ML SYRINGE IVP PRN ×2 (18:29→21:33)
[2023-03-31] MEDS: METOCLOPRAMIDE 5 MG/ML 2 ML VIAL IVP PRN (20:33)
[2023-03-31] MEDS: CYCLOBENZAPRINE 5 MG TAB PO SCH (20:41)
[2023-03-31] MEDS: lamoTRIgine 100 MG TAB PO SCH (20:47)
[2023-03-31] MEDS: traZODone HCL 50 MG TAB PO SCH (22:21)
[2023-03-31] MEDS: QUEtiapine 100 MG TAB PO SCH (22:22)
[2023-03-31] MEDS: GABAPENTIN 300 MG CAP PO SCH (22:38)
[2023-04-01] MEDS: ACETAMINOPHEN IV (For NPO) 1,000 MG in EMPTY BAG 1 BAG IVPB SCH ×2 (00:17→06:44)
[2023-04-01] MEDS: HYDROmorphone 1 MG/ML 1 ML SYRINGE IVP PRN ×5 (01:39→19:38)
[2023-04-01] MEDS: METOCLOPRAMIDE 5 MG/ML 2 ML VIAL IVP PRN ×2 (05:55→12:47)
[2023-04-01 06:27] LABS: African American GFR (CKD) >90 (>60 ml/min/1.73 sqM); Anion Gap 9 mmol/L; Blood Urea Nitrogen 13 mg/dL (7-17); Calcium 8.7 mg/dL (8.4-10.2); Carbon Dioxide 24 mmol/L (22-30); Chloride 101 mmol/L (98-107); Glucose 147 mg/dL (74-99); Non-African American GFR(CKD) >90 (>60 ml/min/1.73 sqM); Potassium 3.8 mmol/L (3.5-5.1); Sodium 134 mmol/L (137-145)
[2023-04-01 06:34] LABS: Anisocytosis Slight; Basophils % (A) 0 %; Eosinophils % (A) 0 %; Lymphocytes # (A) 0.4 k/uL (1.0-4.8); Lymphocytes % (A) 3 %; MCH 29.7 pg (25.0-35.0); MCHC 33.2 g/dL (31.0-37.0); MCV 89.3 fL (80.0-100.0); Mean Platelet Volume 7.2; Monocytes # (A) 0.9 k/uL (0-1.0); Monocytes % (A) 6 %; Neutrophils # (A) 13.5 k/uL (1.3-7.7); Neutrophils % (A) 91 %; Platelet Count 204 k/uL (150-450); RBC 4.37 m/uL (3.80-5.40); RDW 19.3 % (11.5-15.5); WBC 14.8 k/uL (3.8-10.6)
[2023-04-01] MEDS: LACTATED RINGERS 1,000 ML IV SCH (06:43)
[2023-04-01] MEDS ORDERED: Potassium Replacement Protocol 1 EACH MISC MISCELLANE PRN (07:51)
[2023-04-01] MEDS ORDERED: POTASSIUM CHLORIDE ER 20 MEQ TAB.ER PO SCH (08:00)
--- NOTE | 2023-04-01 08:05 | P.PN ---
Subjective Progress Note Date: 04/01/23 Principal diagnosis: 1. L1-S1 spondylosis, severe 2.L1-S1 stenosis 3. Multiple vertebral compression fractures from L1-S1 4. Lower extremity radiculopathy and weakness 5. Low back pain, severe Patient seen and examined this morning. She was transferred post-operatively to the ICU for monitoring. Patient is resting comfortably in bed. She has remained with HOB at >10 degrees through the night due to a dural leak. Patient currently denies any significant headache, dizziness, or blurred vision. She does report some continued nausea and stomach cramping, this may be result of anesthesia. Patient states she had a BM 03/31/23 prior to surgery. Surgical incision to the lumbar spine, dressing is CDI, pin point areas of shadowing present. Weiss catheter is present with adequate output. Patient may begin to elevate HOB 10 degrees every hour as long as she is asymptomatic of Headache, blurred vision, dizziness. If symptoms occur, return patient to laying flat. Prescription for TLSO brace has been placed in chart. No acute concerns. Objective - Vital Signs Vital signs: Vital Signs Temp 98.2 F 04/01/23 04:00 Pulse 87 04/01/23 06:00 Resp 19 04/01/23 06:00 BP 140/82 04/01/23 06:00 Pulse Ox 97 04/01/23 06:00 FiO2 Intake & Output 03/31/23 03/31/23 04/01/23 06:59 18:59 06:59 Intake Total 400 3622 506.300 Output Total 1800 1240 Balance 400 1822 -733.700 Weight 87 kg 88 kg Intake: IV 400 2762 340 ACETAMINOPHEN IV (For NPO 100 ) 1,000 mg In Empty Bag 1 bag @ 400 mls/hr IVPB Q6HR [facility] Rx#:[id number] Lactated Ringers 1,000 ml 60 240 @ 20 mls/hr IV .Q24H [facility] Rx#:[id number] ceFAZolin 2 gm In Sodium 50 Chloride 0.9% 50 ml @ 100 mls/hr IVPB Q8HR [facility] Rx# :[id number] Intake, IV Titration 16.300 Amount Clevidipine Butyrate 25 16.300 mg In Empty Bag 1 bag @ 1 MG/HR 2 mls/hr IV .Q24H [facility]YN Rx#:[id number] Oral 240 150 Blood Product 620 Rc As-1 Unit 310 [id number] Rc As-1 Unit 310 [id number] Output: Urine 1100 1240 Estimated Blood Loss 700 Other: Voiding Method Indwelling Catheter ABP, PAP, CO, CI - Last Documented Arterial Blood Pressure 148/106 - Exam Physical Examination General: The patient is awake and alert, in no acute distress Skin: Skin is warm and dry with no obvious rashes or lesions. Surgical inc ision to the lumbar spine, dressing is clean dry and intact. Pinpoint areas of shadowing noted. Eye: Pupils are equal, round and reactive to light, extra-ocular movements are intact; there is normal conjunctiva bilaterally. Neck: The neck is supple, there is no tenderness and ROM intact. Cardiovascular: There is a regular rate and rhythm. No murmur, rub or gallop is appreciated. Respiratory: Respirations are non-labored, breath sounds are equal. Gastrointestinal: Soft, non-distended, non-tender abdomen. Back: There is moderate tenderness to palpation in the paralumbar region. There is no obvious deformity . Musculoskeletal: ROM limited secondary to pain and stiffness from surgical procedure. Muscle strength in all major muscle groups of bilateral upper extremities 5/5, bilateral lower extremities 4/5. Neurological: CN 2-12 intact. There are no obvious motor or sensory deficits. Movement and coordination equal and intact. Sensory exam to light touch intact C5-T1 and intact from L2-S1. Reflexes 2/4 in bilateral upper and lower extremities. Negative Hoffmans, babinski, and clonus signs. Psychiatric: Cooperative, appropriate mood & affect, normal judgment. - Labs CBC & Chem 7: 04/01/23 05:30 04/01/23 05:30 Labs: Abnormal Lab Results - Last 24 Hours (Table) 03/26/23 03/31/23 03/31/23 Range/Units 09:34 08:48 16:10 WBC (3.8-10.6) k/uL RBC 3.77 L (3.80-5.40) m/uL Hgb 11.1 L (11.4-16.0) gm/dL RDW 20.1 H (11.5-15.5) % Neutrophils # (1.3-7.7) k/uL Lymphocytes # 0.9 L (1.0-4.8) k/uL Sodium (137-145) mmol/L Creatinine (0.52-1.04) mg/dL Glucose (74-99) mg/dL POC Glucose (mg/dL) 173 H (70-110) mg/dL Crossmatch See Detail 04/01/23 04/01/23 Range/Units 05:30 05:30 WBC 14.8 H (3.8-10.6) k/uL RBC (3.80-5.40) m/uL Hgb (11.4-16.0) gm/dL RDW 19.3 H (11.5-15.5) % Neutrophils # 13.5 H (1.3-7.7) k/uL Lymphocytes # 0.4 L (1.0-4.8) k/uL Sodium 134 L (137-145) mmol/L Creatinine 0.32 L (0.52-1.04) mg/dL Glucose 147 H (74-99) mg/dL POC Glucose (mg/dL) (70-110) mg/dL Crossmatch Assessment and Plan Assessment: Postop day 1: [id number] decompression and fusion 1. L1-S1 spondylosis, severe 2.L1-S1 stenosis 3. Multiple vertebral compression fractures from L1-S1 4. Lower extremity radiculopathy and weakness 5. Low back pain, severe Plan: -Appreciate intelligence consultant and team management. -Activity: Patient may begin to elevate HOB 10 degrees every hour as long as she is asymptomatic of Headache, blurred vision, dizziness. If symptoms occur, return patient to laying flat. -Pain control: Adequate at this time -Meds: reviewed -GI ppx: senna, Miralax -DC weiss when up and about, bedside commode if needed -DVT PPX: Heparin -Hygiene: Shower today. Maintain dressing clean and dry. Meticulous cleaning after BMs away from the incision site -Encourage IS 10x/hr -Dispo: Clinically pending *I reviewed and discussed this case with my attending Dr. Flores, whom has reviewed this chart and films and is in agreement with assessment and plan of care as outlined above. I have personally seen and examined the patient, performed the documentation and the assessment and plan as written. Number of minutes spent on the visit: 20m.
[2023-04-01] MEDS: LEVOTHYROXINE 88 MCG TAB PO SCH (08:20)
[2023-04-01] MEDS: SENNOSIDES-DOCUSATE SODIUM 1 EACH TAB PO SCH (08:20)
[2023-04-01] MEDS: MAGNESIUM HYDROXIDE 2,400 MG/30 ML CUP PO SCH (08:20)
[2023-04-01] MEDS: ONDANSETRON 4 MG/2 ML VIAL IVP PRN ×2 (08:20→16:54)
[2023-04-01] MEDS: CYCLOBENZAPRINE 5 MG TAB PO SCH ×3 (08:20→20:01)
[2023-04-01] MEDS: ACETAMINOPHEN TAB 325 MG TAB PO SCH ×3 (08:20→19:13)
[2023-04-01] MEDS: KETOROLAC 15 MG/ML 1 ML VIAL IVP PRN (08:21)
[2023-04-01] MEDS: lamoTRIgine 100 MG TAB PO SCH ×2 (08:21→19:36)
[2023-04-01] MEDS: HEPARIN SODIUM,PORCINE 5,000 UNIT/ML 1 ML VIAL SQ SCH ×2 (08:21→16:16)
[2023-04-01] MEDS: GABAPENTIN 300 MG CAP PO SCH ×3 (08:21→19:37)
--- NOTE | 2023-04-01 08:53 | CT ---
EXAMINATION TYPE: CT thor lumbar spine wo con DATE OF EXAM: 03/31/2023 COMPARISON: 08/22/2022 HISTORY: s/p [id number] decompression and fusion CT DLP: 1587.[address] of the thoracolumbar spine was performed. Bone and soft tissue window settings are white bmitted as well as coronal and sagittal reconstructions. The patient is status post T10 through pelvic decompression and fusion. There is thoracic curvature c onvex to the left lumbar curvature convex to the right. Interconnecting pedicular screws are seen ext ending from T10 through the pelvis. Postoperative alignment is within normal limits. Postsurgical sof t tissue changes noted. Streak artifact limits evaluation of the spinal canal. Methylmethacrylate inj ection noted at T10, L1 L3. Intervertebral body spacers noted at L3-4, L4-5 and L5-S1. IMPRESSION: 1. Appropriate postoperative alignment
[2023-04-01] MEDS: LORazepam 0.5 MG TAB PO PRN ×2 (09:37→19:37)
[2023-04-01] MEDS: METOPROLOL TARTRATE 25 MG TAB PO SCH ×2 (09:47→19:38)
[2023-04-01] MEDS: amLODIPine 5 MG TAB PO SCH (09:47)
--- NOTE | 2023-04-01 12:26 | P.PN ---
Subjective Progress Note Date: 04/01/23 Principal diagnosis: Postop day 1: [id number] decompression and fusion This is a 68-year-old female patient with a known history of anxiety/depression, bipolar disorder, former smoker who is been having significant lumbar back pain and was brought in today electively for a T10 to pelvis revision decompression and fusion. Due to the length of her surgery she was admitted to the intensive care unit postoperatively. Currently she is laying flat in bed. Awake and alert in no acute distress. Maintaining O2 saturations in the 90s on 2 L/m per nasal cannula. Somewhat hypertensive. She did require 2 units of packed red blood cells. White count 6.2. Hemoglobin 11.1. Platelets 260. Glucose 173. Lactated Ringer's at 20 MLs per hour. She has a right brachial arterial line in place. Right internal jugular triple-lumen catheter in place. She is receiving cefazolin. Chest x-ray revealed no pneumothorax. Evidence of COPD with bilater al lower lobe infiltrate/atelectasis. Patient was reevaluated today on 04/01/23, patient remains in the ICU, does not seem to be in any distress, complaining of pain, but she is receiving pain medications for her postsurgical pain/back pain, she had minimal episode of nausea and some stomach cramping. Blood pressure is a bit elevated, and she was on clevidipine X until this morning, I will start the patient on oral medications for elevated blood pressure. Patient has good urine output, she is hemodynamically stable. She denies any neurological symptoms except back pain. WBC count is 14.8 hemoglobin 13 basic metabolic profile is normal and renal profile is normal. Objective - Vital Signs Vital signs: Vital Signs Temp 97.9 F 04/01/23 08:00 Pulse 110 H 04/01/23 09:00 Resp 15 04/01/23 09:00 BP 144/90 04/01/23 09:00 Pulse Ox 96 04/01/23 09:00 FiO2 Intake & Output 03/31/23 04/01/23 04/01/23 18:59 06:59 18:59 Intake Total 3622 506.300 360 Output Total 1800 1240 180 Balance 1822 -733.700 180 Weight 88 kg Intake: IV 2762 340 60 ACETAMINOPHEN IV (For NPO 100 ) 1,000 mg In Empty Bag 1 bag @ 400 mls/hr IVPB Q6HR [facility] Rx#:[id number] Lactated Ringers 1,000 ml 60 240 60 @ 20 mls/hr IV .Q24H [facility] Rx#:[id number] ceFAZolin 2 gm In Sodium 50 Chloride 0.9% 50 ml @ 100 mls/hr IVPB Q8HR [facility] Rx# :[id number] Intake, IV Titration 16.300 Amount Clevidipine Butyrate 25 16.300 mg In Empty Bag 1 bag @ 1 MG/HR 2 mls/hr IV .Q24H [facility] Rx#:[id number] Oral 240 150 300 Blood Product 620 Rc As-1 Unit 310 [id number] Rc As-1 Unit 310 [id number] Output: Urine 1100 1240 180 Estimated Blood Loss 700 Other: Voiding Method Indwelling Catheter Indwelling Catheter ABP, PAP, CO, CI - Last Documented Arterial Blood Pressure 149/105 - Exam Physical Exam: Revealed a 68-year-old female in no distress Head: Atraumatic, normocephalic. HEENT:[Neck is supple.] [No neck masses.] [No thyromegaly.] [No JVD.] Chest: [Clear throughout, no crackles, no rhonchi, no wheezes.] Cardiac Exam: [Normal S1 and S2, no S3 gallop, no murmur.] Abdomen: [Soft, nontender, no megaly, no rebound, no guarding, normal bowel sounds.] Extremities: [No clubbing, no edema, no cyanosis.] Neurological Exam: [No focal neurologic deficit.] Alert and oriented 3. Psychiatric: Normal mood, affect and normal mental status examination. Skin: No rashes - Labs CBC & Chem 7: 04/01/23 05:30 04/01/23 05:30 Labs: Abnormal Lab Results - Last 24 Hours (Table) 03/31/23 04/01/23 04/01/23 Range/Units 16:10 05:30 05:30 WBC 14.8 H (3.8-10.6) k/uL RDW 19.3 H (11.5-15.5) % Neutrophils # 13.5 H (1.3-7.7) k/uL Lymphocytes # 0.4 L (1.0-4.8) k/uL Sodium 134 L (137-145) mmol/L Creatinine 0.32 L (0.52-1.04) mg/dL Glucose 147 H (74-99) mg/dL POC Glucose (mg/dL) 173 H (70-110) mg/dL Assessment and Plan Assessment: Impression:Postop day 1: [id number] decompression and fusion Postoperative back pain, expected History of L1 S1 spondylosis History of L1 S1 stenosis Multiple vertebral compression fractures Lower extremity radiculopathy and weakness Chronic low back pain Benign essential hypertension History of bipolar disorder Previous history of DVT Hypothyroidism, on replacement therapy History of diastolic dysfunction Recommendation: Consider transferring the patient to a medical surgical floor today once a bed is available Continue pain control management. Discontinue Cleviprex, and start patient on oral medication for hypertension Resume all months Continue supportive care measures GI prophylaxis DVT prophylaxis, patient is on subcu heparin. Encourage incentive spirometry We'll continue to follow Time with Patient: Less than 30
[2023-04-01] MEDS: PANTOPRAZOLE 40 MG TABLET PO SCH (12:47)
--- NOTE | 2023-04-01 16:24 | P.PN ---
Subjective Progress Note Date: 04/01/23 (delayed charting seen at 0845) Patient is a 68-year-old female with history of prior provoked DVTs, thyroid nodules status post left thyroidectomy on thyroid replacement, osteoarthritis, and prior iron deficiency anemia who presented to the hospital for elective T10 to pelvis fusion. Intraoperatively the patient required 2 units of packed red blood cells. She had an unremarkable postoperative course and was subsequently transferred to the ICU. On arrival to the ICU she was noted to be hypertensive and the critical care team ordered Cleviprex to pain to titrate for high blood p ressure. Patient seen and examined at bedside. She continues to have significant amounts of pain. Denies chest pain or shortness of breath. She denies any nausea or vomiting. No diarrhea or constipation. Vital signs reviewed General: nontoxic, no distress, appears at stated age Cardiovascular: S1S2 reg, no murmur, positive posterior tibial pulse bilateral, Lungs: Decreased breath sounds bilateral bilateral, no rhonchi, no rales , no accessory muscle use Abdominal: soft, nontender to palpation, no guarding, no appreciable organomegaly Ext: no gross muscle atrophy, no edema b/l lower extremities, no contractures Neuro: CN II-XI grossly intact, no focal neuro deficits Psych: Alert, oriented, appropriate affect Assessment/Plan: 68-year-old female status post T10 to pelvis Severe postoperative pain - Case discussed with Dr. Flores. Okay to heparin SC - acetaminophen 650 q 6 hours scheduled - toraldol 15 mg q6 hours prn pain.gabapentin 300 mg TID, Flexeril scheduled 5 mg PO TID. Continue with Dilaudid 0/5 -1 mg prn q 3 hours depending on pain scale and oxy 5-10 q 4 hours prn depending on pain scale. Bipolar disorder -Lamictal 200 mg twice daily, Seroquel 300 mg at night, trazodone 150 mg at night Chronic: Prior history of DVT after knee surgery History of iron deficiency anemia Hypothyroidism-Synthroid 88 mcg Grade 2 diastolic dysfunction, mild AR -Resume Lamictal 200 mg twice daily, Seroquel 300 mg at night, trazodone 150 mg at night Elevated BP. resolved Imaging: None new Data Review: Labs reviewed from today include CBC and basic metabolic profile remarkable for white blood cell count 14.8, sodium 134, glucose 147 Thank you for allowing us to participate in the care of this pleasant patient. Do not hesitate to contact us with questions. Someone can be reached from the [facility] [place] [facility] [place] hospital[place] [facility] all hours of the day at [phone] or via perfect serve. This dictation was prepared using [employer] voice recognition software. Though every attempt is made to correct errors during dictation some may still exist. Objective - Vital Signs Vital signs: Vital Signs Temp 98.3 F 04/01/23 13:50 Pulse 89 04/01/23 13:50 Resp 16 04/01/23 14:55 BP 146/87 04/01/23 13:50 Pulse Ox 96 04/01/23 13:50 FiO2 Intake & Output 03/31/23 04/01/23 04/01/23 18:59 06:59 18:59 Intake Total 3622 506.300 360 Output Total 1800 1240 180 Balance 1822 -733.700 180 Weight 88 kg Intake: IV 2762 340 60 ACETAMINOPHEN IV (For NPO 100 ) 1,000 mg In Empty Bag 1 bag @ 400 mls/hr IVPB Q6HR [facility] Rx#:[id number] Lactated Ringers 1,000 ml 60 240 60 @ 20 mls/hr IV .Q24H [facility] Rx#:[id number] ceFAZolin 2 gm In Sodium 50 Chloride 0.9% 50 ml @ 100 mls/hr IVPB Q8HR [facility] Rx# :[id number] Intake, IV Titration 16.300 Amount Clevidipine Butyrate 25 16.300 mg In Empty Bag 1 bag @ 1 MG/HR 2 mls/hr IV .Q24H [facility] Rx#:[id number] Oral 240 150 300 Blood Product 620 Rc As-1 Unit 310 [id number] Rc As-1 Unit 310 [id number] Output: Urine 1100 1240 180 Estimated Blood Loss 700 Other: Voiding Method Indwelling Catheter Indwelling Catheter ABP, PAP, CO, CI - Last Documented Arterial Blood Pressure 149/105 - Labs CBC & Chem 7: 04/01/23 05:30 04/01/23 05:30 Labs: Abnormal Lab Results - Last 24 Hours (Table) 04/01/23 04/01/23 Range/Units 05:30 05:30 WBC 14.8 H (3.8-10.6) k/uL RDW 19.3 H (11.5-15.5) % Neutrophils # 13.5 H (1.3-7.7) k/uL Lymphocytes # 0.4 L (1.0-4.8) k/uL Sodium 134 L (137-145) mmol/L Creatinine 0.32 L (0.52-1.04) mg/dL Glucose 147 H (74-99) mg/dL
[2023-04-01] MEDS: traZODone HCL 50 MG TAB PO SCH (19:36)
[2023-04-01] MEDS: QUEtiapine 100 MG TAB PO SCH (20:01)
[2023-04-02] MEDS: HEPARIN SODIUM,PORCINE 5,000 UNIT/ML 1 ML VIAL SQ SCH ×3 (00:10→15:39)
[2023-04-02] MEDS: ACETAMINOPHEN TAB 325 MG TAB PO SCH ×4 (00:10→17:18)
[2023-04-02] MEDS: HYDROmorphone 1 MG/ML 1 ML SYRINGE IVP PRN ×2 (01:53→05:24)
[2023-04-02] MEDS: LEVOTHYROXINE 88 MCG TAB PO SCH (05:24)
[2023-04-02] MEDS: LACTATED RINGERS 1,000 ML IV SCH (06:00)
[2023-04-02] MEDS: MAGNESIUM HYDROXIDE 2,400 MG/30 ML CUP PO SCH (07:10)
[2023-04-02] MEDS: GABAPENTIN 300 MG CAP PO SCH ×3 (07:11→20:28)
[2023-04-02] MEDS: CYCLOBENZAPRINE 5 MG TAB PO SCH ×3 (07:11→20:28)
[2023-04-02] MEDS: SENNOSIDES-DOCUSATE SODIUM 1 EACH TAB PO SCH (07:11)
[2023-04-02] MEDS: PANTOPRAZOLE 40 MG TABLET PO SCH (07:11)
[2023-04-02] MEDS: lamoTRIgine 100 MG TAB PO SCH ×2 (07:11→20:28)
[2023-04-02] MEDS: METOPROLOL TARTRATE 25 MG TAB PO SCH ×2 (07:12→20:28)
[2023-04-02] MEDS: amLODIPine 5 MG TAB PO SCH (07:12)
--- NOTE | 2023-04-02 07:41 | P.PN ---
Subjective Progress Note Date: 04/02/23 Principal diagnosis: 1. L1-S1 spondylosis, severe 2.L1-S1 stenosis 3. Multiple vertebral compression fractures from L1-S1 4. Lower extremity radiculopathy and weakness 5. Low back pain, severe Patient seen and examined this morning. She was transferred to yesterday afternoon. Patient is resting comfortably in bed. Sh does report moderate back pain. Discussed use of oral medications and to utilize IV only when necessary. Patient does close her eyes and loses a bit of focus during conversation this morning. Patient currently denies any significant headache, dizziness, or blurred vision. Instructed patient that she needs to get out of bed today. She is looking forward to working with PT. Surgical incision to the lumbar spine, dressing is CDI, pin point areas of shadowing present. Weiss catheter is present with adequate output, this may be removed today if patient is tolerating activity. Continue to encourage use of incentive spirometer while awake. No acute concerns. Objective - Vital Signs Vital signs: Vital Signs Temp 98.1 F 04/02/23 01:40 Pulse 100 04/02/23 01:56 Resp 16 04/01/23 14:55 BP 126/88 04/02/23 01:40 Pulse Ox 96 04/02/23 01:40 FiO2 Intake & Output 04/01/23 04/02/23 04/02/23 18:59 06:59 18:59 Intake Total 360 Output Total 180 940 Balance 180 -940 Intake: IV 60 Lactated Ringers 1,000 ml 60 @ 20 mls/hr IV .Q24H [facility] Rx#:[id number] Oral 300 Output: Urine 180 940 Other: Voiding Method Indwelling Catheter Indwelling Catheter ABP, PAP, CO, CI - Last Documented Arterial Blood Pressure 149/105 - Exam Physical Examination General: The patient is awake and alert, in no acute distress Skin: Skin is warm and dry with no obvious rashes or lesions. Surgical incision to the lumbar spine, dressing is clean dry and intact. Pinpoint areas of shadowing noted. Eye: Pupils are equal, round and reactive to light, extra-ocular movements are i ntact; there is normal conjunctiva bilaterally. Neck: The neck is supple, there is no tenderness and ROM intact. Cardiovascular: There is a regular rate and rhythm. No murmur, rub or gallop is appreciated. Respiratory: Respirations are non-labored, breath sounds are equal. Gastrointestinal: Soft, non-distended, non-tender abdomen. Back: There is moderate tenderness to palpation in the paralumbar region. There is no obvious deformity . Musculoskeletal: ROM limited secondary to pain and stiffness from surgical procedure. Muscle strength in all major muscle groups of bilateral upper extremities 5/5, bilateral lower extremities 4/5. Neurological: CN 2-12 intact. There are no obvious motor or sensory deficits. Movement and coordination equal and intact. Sensory exam to light touch intact C5-T1 and intact from L2-S1. Reflexes 2/4 in bilateral upper and lower extremities. Negative Hoffmans, babinski, and clonus signs. Psychiatric: Cooperative, appropriate mood & affect, normal judgment. - Labs CBC & Chem 7: 04/01/23 05:30 04/01/23 05:30 Assessment and Plan Assessment: Postop day 2: [id number] decompression and fusion 1. L1-S1 spondylosis, severe 2.L1-S1 stenosis 3. Multiple vertebral compression fractures from L1-S1 4. Lower extremity radiculopathy and weakness 5. Low back pain, severe Plan: -Appreciate apartment leasing consultant and team management. -Activity: Ambulate QID, OOB all meals, up and about, limit lifting bending twisting to less than 5 lbs. Use walker or cane if needed for stability. -Daily PT/OT, increase ambulation strength and balance. -Brace when up and about, not needed in bed or chair -Pain control: Adequate at this time -Meds: reviewed -GI ppx: senna, Miralax -DC weiss when up and about, bedside commode if needed -DVT PPX: Heparin -Hygiene: Shower today. Maintain dressing clean and dry. Meticulous cleaning after BMs away from the incision site -Encourage IS 10x/hr -Dispo: Clinically pending *I reviewed and discussed this case with my attending Dr. Flores, whom has reviewed this chart and films and is in agreement with assessment and plan of care as outlined above. I have personally seen and examined the patient, performed the documentation and the assessment and plan as written. Number of minutes spent on the visit: 20m.
[2023-04-02 10:37] LABS: Glucose,Whole Blood 129 mg/dL (70-110)
--- NOTE | 2023-04-02 12:56 | P.PN ---
Subjective Progress Note Date: 04/02/23 This is a 68-year-old female patient with a known history of anxiety/depression, bipolar disorder, former smoker who is been having significant lumbar back pain and was brought in today electively for a T10 to pelvis revision decompression and fusion. Due to the length of her surgery she was admitted to the intensive care unit postoperatively. Currently she is laying flat in bed. Awake and alert in no acute distress. Maintaining O2 saturations in the 90s on 2 L/m per nasal cannula. Somewhat hypertensive. She did require 2 units of packed red blood cells. White count 6.2. Hemoglobin 11.1. Platelets 260. Glucose 173. Lactated Ringer's at 20 MLs per hour. She has a right brachial arterial line in place. Right internal jugular triple-lumen catheter in place. She is receiving cefazolin. Chest x-ray revealed no pneumothorax. Evidence of COPD with bilateral lower lobe infiltrate/atelectasis. The patient is seen today 04/02/2023 in follow-up on the regular medical floor. She is currently sitting up in a chair. Awake and alert in no acute distress. She is maintaining O2 saturations in the 90s on 2 L/m per nasal cannula. Follow up computed tomography scan of the lumbar spine revealed appropriate postoperative alignment. Her pain is fairly well controlled. She is status post 2 units of packed red blood cells this admission. Most recent hemoglobin 13.0. Glucose 129. She remains on cefazolin. Lactated Ringer's at KVO. Patient's urine is quite dark. Her mouth is dry. Objective - Vital Signs Vital signs: Vital Signs Temp 99.1 F 04/02/23 08:00 Pulse 72 04/02/23 08:00 Resp 17 04/02/23 08:00 BP 181/83 04/02/23 08:00 Pulse Ox 99 04/02/23 08:00 FiO2 Intake & Output 04/01/23 04/02/23 04/02/23 18:59 06:59 18:59 Intake Total 360 Output Total 180 940 Balance 180 -940 Intake: IV 60 Lactated Ringers 1,000 ml 60 @ 20 mls/hr IV .Q24H [facility] Rx#:[id number] Oral 300 Output: Urine 180 940 Other: Voiding Method Indwelling Catheter Indwelling Catheter ABP, PAP, CO, CI - Last Documented Arterial Blood Pressure 149/105 - Exam GENERAL EXAM: Alert, 68-year-old female, sitting in a chair, on 2 L nasal cannula, comfortable in no apparent distress. HEAD: Normocephalic. EYES: Normal reaction of pupils, equal size. NOSE: Clear with pink turbinates. THROAT: No erythema or exudates. NECK: No masses, no JVD. CHEST: No chest wall deformity. LUNGS: Equal air entry with no crackles, wheeze, rhonchi or dullness. CVS: S1 and S2 normal with no audible murmur, regular rhythm. ABDOMEN: No hepatosplenomegaly, normal bowel sounds, no guarding or rigidity. SPINE: No scoliosis or deformity, dressing dry and intact SKIN: No rashes CENTRAL NERVOUS SYSTEM: No focal deficits, tone is normal in all 4 extremities. EXTREMITIES: There is no peripheral edema. No clubbing, no cyanosis. Peripheral pulses are intact. - Labs CBC & Chem 7: 04/01/23 05:30 04/01/23 05:30 Labs: Abnormal Lab Results - Last 24 Hours (Table) 04/02/23 Range/Units 10:35 POC Glucose (mg/dL) 129 H (70-110) mg/dL Assessment and Plan Assessment: Lumbar pain, status post elective T10 to pelvis revision decompression and fusion. Postoperative day #2 Hypertension History of anxiety/depression History of bipolar disorder Former smoker Plan: The patient was seen and evaluated Medications reviewed Currently stable and on 2 L nasal cannula Titrate the FiO2 as tolerated Encouraged the increased use of the incentive spirometer Continue cefazolin Adequate pain control Increase her activity as tolerated Appears dry, urine dark Increase lactated Ringer's to 50 ML's per hour We will continue to follow I have personally seen and examined the patient, performed the documentation and the assessment and plan as written. Number of minutes spent on the visit: 10.
--- NOTE | 2023-04-02 14:29 | P.PN ---
Subjective Progress Note Date: 04/02/23 Patient is a 68-year-old female with history of prior provoked DVTs, thyroid nodules status post left thyroidectomy on thyroid replacement, osteoarthritis, and prior iron deficiency anemia who presented to the hospital for elective T10 to pelvis fusion. Underwent surgery with Dr. Flores on 03/31. 04/02 Patient seen and examined at bedside. She has a fall this morning. She was trying to get out of her recliner and walk to the bed. After her fall, she was alert and oriented x 3. No FND seen of physical exam. She denies any dizziness or head trauma. Vital signs reviewed General: nontoxic, no distress, appears at stated age Cardiovascular: S1S2 reg, no murmur Lungs: Decrease bs bilateral, no rhonchi, no rales , no accessory muscle use Ext: no gross muscle atrophy, no edema b/l lower extremities, no contractures Neuro: no focal neuro deficits Psych: Alert, oriented, appropriate affect Based on my assessment of this patient, this patient meets a moderate complexity level of care. Patient has a new diagnosis of status post T10 to pelvis fusion with uncertain prognosis. Fall: Appears mechanical. AO x 3 immediately after. No FND on physical exam. Denies LOC or head trauma. RN to notify Dr. Flores for possible imaging. Bipolar disorder: Lamictal 200 mg PO BID, Seroquel 300 mg PO QHS, trazodone 150 mg PO QHS. Prior history of DVT after knee surgery History of iron deficiency anemia Hypothyroidism: Synthroid 88 mcg PO QD. Hypertension: Metoprolol 25 mg PO BID. Amlodipine 5 mg PO QD. Grade 2 diastolic dysfunction, mild AR CODE STATUS: FULL CODE DVT Prophylaxis: Heparin SQ GI Prophylaxis: Protonix PO for worsening of the outpatient individual itself is contracted and is ALLERGIC to things that was but those are likely highly unlikely as does her lites were states is borderline or slight is constipation as going over the importance the rhythm back home as Designated medical POA if patient is not able to make medical decisions for themselves: I have reviewed the following supervisor home energy consultant notes: Ortho note. I have reviewed the results of the following tests: CBC I have ordered the following tests: I have discussed the care of this patient with the following independent historian: Discussed with RN. I have independently interpreted the following test below: I have discussed the management of this patient with the following physician: Objective - Vital Signs Vital signs: Vital Signs Temp 97.9 F 04/02/23 14:00 Pulse 91 04/02/23 14:00 Resp 18 04/02/23 14:00 BP 153/97 04/02/23 14:00 Pulse Ox 96 04/02/23 14:00 FiO2 Intake & Output 04/01/23 04/02/23 04/02/23 18:59 06:59 18:59 Intake Total 360 Output Total 180 940 Balance 180 -940 Intake: IV 60 Lactated Ringers 1,000 ml 60 @ 20 mls/hr IV .Q24H [facility] Rx#:[id number] Oral 300 Output: Urine 180 940 Other: Voiding Method Indwelling Catheter Indwelling Catheter ABP, PAP, CO, CI - Last Documented Arterial Blood Pressure 149/105 - Labs CBC & Chem 7: 04/01/23 05:30 04/01/23 05:30 Labs: Abnormal Lab Results - Last 24 Hours (Table) 04/02/23 Range/Units 10:35 POC Glucose (mg/dL) 129 H (70-110) mg/dL
[2023-04-02] MEDS: QUEtiapine 100 MG TAB PO SCH (20:28)
[2023-04-02] MEDS: traZODone HCL 50 MG TAB PO SCH (20:29)
[2023-04-02] MEDS: KETOROLAC 15 MG/ML 1 ML VIAL IVP PRN (20:29)
[2023-04-03] MEDS: ACETAMINOPHEN TAB 325 MG TAB PO SCH ×5 (00:13→23:28)
[2023-04-03] MEDS: HEPARIN SODIUM,PORCINE 5,000 UNIT/ML 1 ML VIAL SQ SCH ×5 (00:14→23:27)
[2023-04-03] MEDS: LACTATED RINGERS 1,000 ML IV SCH (00:19)
[2023-04-03] MEDS: LEVOTHYROXINE 88 MCG TAB PO SCH (05:49)
[2023-04-03] MEDS: PANTOPRAZOLE 40 MG TABLET PO SCH (05:49)
[2023-04-03] MEDS ORDERED: CYCLOBENZAPRINE 5 MG TAB PO PRN (07:44)
[2023-04-03] MEDS: METOPROLOL TARTRATE 25 MG TAB PO SCH ×2 (08:24→20:42)
[2023-04-03] MEDS: MAGNESIUM HYDROXIDE 2,400 MG/30 ML CUP PO SCH (08:25)
[2023-04-03] MEDS: SENNOSIDES-DOCUSATE SODIUM 1 EACH TAB PO SCH (08:25)
[2023-04-03] MEDS: lamoTRIgine 100 MG TAB PO SCH ×2 (08:25→20:41)
[2023-04-03] MEDS: amLODIPine 5 MG TAB PO SCH (08:25)
--- NOTE | 2023-04-03 08:46 | P.PN ---
Subjective Progress Note Date: 04/03/23 Principal diagnosis: 1. L1-S1 spondylosis, severe 2.L1-S1 stenosis 3. Multiple vertebral compression fractures from L1-S1 4. Lower extremity radiculopathy and weakness 5. Low back pain, severe Patient seen and examined this morning. Patient is resting comfortably in bed. RN states that patient did have a fall yesterday afternoon. She she was attempting to transfer herself from the chair back to bed and fell onto her left side. Tim ZUNILDA had come up to patient room to assess at the time of the event. Patient does present this morning with a large bruise over her left hip. Patient denies any TTP and has full range of motion without pain. When asking patient about the event this morning she stated she was walking to her neighbors to get ice cream. Patient was re-orientated to place and situation. Medications have been adjusted. Surgical dressing to the lumbar spine is intact. Continue to encourage patient to work with physical therapy and to be up in chair with all meals. No acute concerns at this time. Objective - Vital Signs Vital signs: Vital Signs Temp 99.2 F 04/03/23 00:16 Pulse 91 04/03/23 00:16 Resp 19 04/03/23 00:16 BP 112/69 04/03/23 00:16 Pulse Ox 98 04/03/23 00:16 FiO2 Intake & Output 04/02/23 04/03/23 04/03/23 18:59 06:59 18:59 Intake Total 650 700 Output Total 950 Balance 650 -250 Intake: IV 650 700 Lactated Ringers 1,000 ml 600 600 @ 50 mls/hr IV .Q20H [facility] Rx#:[id number] ceFAZolin 2 gm In Sodium 50 100 Chloride 0.9% 50 ml @ 100 mls/hr IVPB Q8HR [facility] Rx# :[id number] Output: Urine 950 Other: Voiding Method Indwelling Catheter Indwelling Catheter ABP, PAP, CO, CI - Last Documented Arterial Blood Pressure 149/105 - Exam Physical Examination General: The patient is awake and alert, in no acute distress Skin: Skin is warm and dry with no obvious rashes or lesions. Surgical incision to the lumbar spine, dressing is clean dry and intact. Pinpoint areas of shadowing noted. Eye: Pupils are equal, round and reactive to light, extra-ocular movements are intact; there is normal conjunctiva bilaterally. Neck: The neck is supple, there is no tenderness and ROM intact. Cardiovascular: There is a regular rate and rhythm. No murmur, rub or gallop is appreciated. Respiratory: Respirations are non-labored, breath sounds are equal. Gastrointestinal: Soft, non-distended, non-tender abdomen. Back: There is moderate tenderness to palpation in the paralumbar region. There is no obvious deformity . Musculoskeletal: ROM limited secondary to pain and stiffness from surgical procedure. Muscle strength in all major muscle groups of bilateral upper extremities 5/5, bilateral lower extremities 4/5. Neurological: CN 2-12 intact. There are no obvious motor or sensory deficits. Movement and coordination equal and intact. Sensory exam to light touch intact C5-T1 and intact from L2-S1. Reflexes 2/4 in bilateral upper and lower extremities. Negative Hoffmans, babinski, and clonus signs. Psychiatric: Cooperative, appropriate mood & affect, normal judgment. - Labs CBC & Chem 7: 04/01/23 05:30 04/01/23 05:30 Labs: Abnormal Lab Results - Last 24 Hours (Table) 04/02/23 Range/Units 10:35 POC Glucose (mg/dL) 129 H (70-110) mg/dL Assessment and Plan Assessment: Postop day 3: [id number] decompression and fusion 1. L1-S1 spondylosis, severe 2.L1-S1 stenosis 3. Multiple vertebral compression fractures from L1-S1 4. Lower extremity radiculopathy and weakness 5. Low back pain, severe Plan: -Appreciate product management consultant and team management. -Activity: Ambulate QID, OOB all meals, up and about, limit lifting bending twisting to less than 5 lbs. Use walker or cane if needed for stability. -Daily PT/OT, increase ambulation strength and balance. -Brace when up and about, not needed in bed or chair -Pain control: Adequate at this time -Meds: reviewed -GI ppx: senna, Miralax -DC weiss catheter -DVT PPX: Heparin -Hygiene: Shower today. Maintain dressing clean and dry. Meticulous cleaning after BMs away from the incision site -Encourage IS 10x/hr -Dispo: Clinically pending *I reviewed and discussed this case with my attending Dr. Flores, whom has reviewed this chart and films and is in agreement with assessment and plan of care as outlined above. I have personally seen and examined the patient, performed the documentation and the assessment and plan as written. Number of minutes spent on the visit: 20m.
--- NOTE | 2023-04-03 11:05 | P.PN ---
Subjective Progress Note Date: 04/03/23 This is a 68-year-old female patient with a known history of anxiety/depression, bipolar disorder, former smoker who is been having significant lumbar back pain and was brought in today electively for a T10 to pelvis revision decompression and fusion. Due to the length of her surgery she was admitted to the intensive care unit postoperatively. Currently she is laying flat in bed. Awake and alert in no acute distress. Maintaining O2 saturations in the 90s on 2 L/m per nasal cannula. Somewhat hypertensive. She did require 2 units of packed red blood cells. White count 6.2. Hemoglobin 11.1. Platelets 260. Glucose 173. Lactated Ringer's at 20 MLs per hour. She has a right brachial arterial line in place. Right internal jugular triple-lumen catheter in place. She is receiving cefazolin. Chest x-ray revealed no pneumothorax. Evidence of COPD with bilateral lower lobe infiltrate/atelectasis. The patient is seen today 04/02/2023 in follow-up on the regular medical floor. She is currently sitting up in a chair. Awake and alert in no acute distress. She is maintaining O2 saturations in the 90s on 2 L/m per nasal cannula. Follow up computed tomography scan of the lumbar spine revealed appropriate postoperative alignment. Her pain is fairly well controlled. She is status post 2 units of packed red blood cells this admission. Most recent hemoglobin 13.0. Glucose 129. She remains on cefazolin. Lactated Ringer's at KVO. Patient's urine is quite dark. Her mouth is dry. The patient is seen today 04/03/2023 in follow-up on the regular medical floor. She is currently resting in bed. Awake and alert in no acute distress. She is maintaining O2 saturations in the mid 90s on room air. She's been afebrile. Blood pressure better controlled. She remains on cefazolin. Heparin for DVT prophylaxis. Pain is well controlled. Working well with the incentive spirometer. Tolerating a regular diet. The patient did sustain a fall onto her left side yesterday while transferring herself from the chair back to bed. She does have a large bruise over her left hip. Dressing to her surgical spine site was dry and intact. Objective - Vital Signs Vital signs: Vital Signs Temp 97.9 F 04/03/23 06:50 Pulse 93 04/03/23 06:50 Resp 16 04/03/23 06:50 BP 127/81 04/03/23 06:50 Pulse Ox 95 04/03/23 08:22 FiO2 Intake & Output 04/02/23 04/03/23 04/03/23 18:59 06:59 18:59 Intake Total 650 700 Output Total 950 Balance 650 -250 Intake: IV 650 700 Lactated Ringers 1,000 ml 600 600 @ 50 mls/hr IV .Q20H [facility] Rx#:[id number] ceFAZolin 2 gm In Sodium 50 100 Chloride 0.9% 50 ml @ 100 mls/hr IVPB Q8HR [facility] Rx# :[id number] Output: Urine 950 Other: Voiding Method Indwelling Catheter Indwelling Catheter ABP, PAP, CO, CI - Last Documented Arterial Blood Pressure 149/105 - Exam GENERAL EXAM: Alert, 68-year-old female, resting in bed, on room air, comfortable in no apparent distress. HEAD: Normocephalic. EYES: Normal reaction of pupils, equal size. NOSE: Clear with pink turbinates. THROAT: No erythema or exudates. NECK: No masses, no JVD. CHEST: No chest wall deformity. LUNGS: Equal air entry with no crackles, wheeze, rhonchi or dullness. CVS: S1 and S2 normal with no audible murmur, regular rhythm. ABDOMEN: No hepatosplenomegaly, normal bowel sounds, no guarding or rigidity. SPINE: No scoliosis or deformity, dressing dry and intact SKIN: No rashes CENTRAL NERVOUS SYSTEM: No focal deficits, tone is normal in all 4 extremities. EXTREMITIES: Ecchymosis over left hip There is no peripheral edema. No clubbing, no cyanosis. Peripheral pulses are intact. - Labs CBC & Chem 7: 04/01/23 05:30 04/01/23 05:30 Assessment and Plan Assessment: Lumbar pain, status post elective T10 to pelvis revision decompression and fusion. Postoperative day #3 Hypertension History of anxiety/depression History of bipolar disorder Former smoker Plan: The patient was seen and evaluated Medications reviewed Blood pressure well controlled Currently stable and on room air Encouraged the increased use of the incentive spirometer Increase her activity as tolerated Plan is for subacute rehabilitation at discharge This patient was seen independently by the pulmonary nurse practitioner who performed the medical decision-making I have personally seen and examined the patient, performed the documentation and the assessment and plan as written. Number of minutes spent on the visit: 22.
[2023-04-03] MEDS: KETOROLAC 15 MG/ML 1 ML VIAL IVP PRN (11:35)
--- NOTE | 2023-04-03 14:55 | P.PN ---
Subjective Progress Note Date: 04/03/23 Patient is a 68-year-old female with history of prior provoked DVTs, thyroid nodules status post left thyroidectomy on thyroid replacement, osteoarthritis, and prior iron deficiency anemia who presented to the hospital for elective T10 to pelvis fusion. Underwent surgery with Dr. Flores on 03/31. 04/02 Patient seen and examined at bedside. She has a fall this morning. She was trying to get out of her recliner and walk to the bed. After her fall, she was alert and oriented x 3. No FND seen of physical exam. She denies any dizziness or head trauma. 04/03 Patient was seen and examined. No acute events overnight. She does have a large bruise over her left hip. She is slightly more confused today. No FND seen on physical exam. Vital signs reviewed General: nontoxic, no distress, appears at stated age Cardiovascular: S1S2 reg, no murmur Lungs: Decrease bs bilateral, no rhonchi, no rales , no accessory muscle use Ext: no gross muscle atrophy, no edema b/l lower extremities, no contractures Neuro: no focal neuro deficits Psych: Alert, oriented, appropriate affect Based on my assessment of this patient, this patient meets a moderate complexity level of care. Patient has a new diagnosis of status post T10 to pelvis fusion with uncertain prognosis. Fall: 04/02. Appears mechanical. AO x 3 immediately after. No FND on physical exam. Denies LOC or head trauma. Orthopedic team aware. Bipolar disorder: Lamictal 200 mg PO BID, Seroquel 300 mg PO QHS, trazodone 150 mg PO QHS. Prior history of DVT after knee surgery History of iron deficiency anemia Hypothyroidism: Synthroid 88 mcg PO QD. Hypertension: Metoprolol 25 mg PO BID. Amlodipine 5 mg PO QD. Grade 2 diastolic dysfunction, mild AR CODE STATUS: FULL CODE DVT Prophylaxis: Heparin SQ GI Prophylaxis: Protonix PO Designated medical POA if patient is not able to make medical decisions for themselves: I have reviewed the following sharepoint consultant notes: Ortho Pultd note. I have reviewed the results of the following tests: I have ordered the following tests: I have discussed the care of this patient with the following independent historian: Discussed with RN. I have independently interpreted the following test below: I have discussed the management of this patient with the following physician: Objective - Vital Signs Vital signs: Vital Signs Temp 97.9 F 04/03/23 06:50 Pulse 93 04/03/23 06:50 Resp 16 04/03/23 06:50 BP 127/81 04/03/23 06:50 Pulse Ox 95 04/03/23 08:22 FiO2 Intake & Output 04/02/23 04/03/23 04/03/23 18:59 06:59 18:59 Intake Total 650 700 Output Total 950 Balance 650 -250 Intake: IV 650 700 Lactated Ringers 1,000 ml 600 600 @ 50 mls/hr IV .Q20H [facility] Rx#:[id number] ceFAZolin 2 gm In Sodium 50 100 Chloride 0.9% 50 ml @ 100 mls/hr IVPB Q8HR [facility] Rx# :[id number] Output: Urine 950 Other: Voiding Method Indwelling Catheter Indwelling Catheter Indwelling Catheter ABP, PAP, CO, CI - Last Documented Arterial Blood Pressure 149/105 - Labs CBC & Chem 7: 04/01/23 05:30 04/01/23 05:30
[2023-04-03] MEDS: traZODone HCL 50 MG TAB PO SCH (20:41)
[2023-04-03] MEDS: QUEtiapine 100 MG TAB PO SCH (23:30)
[2023-04-04] MEDS: LACTATED RINGERS 1,000 ML IV SCH (00:39)
[2023-04-04] MEDS: LEVOTHYROXINE 88 MCG TAB PO SCH (05:56)
[2023-04-04] MEDS: ACETAMINOPHEN TAB 325 MG TAB PO SCH ×2 (05:56→12:28)
--- NOTE | 2023-04-04 07:51 | XR ---
EXAMINATION TYPE: XR Hip LT and AP Pelvis DATE OF EXAM: 04/04/2023 6:59 AM CLINICAL INDICATION:Female, 68 years old with history of pain; [facility] COMPARISON: 04/04/2023. TECHNIQUE: XR Hip LT and AP Pelvis; hip was examined in the frontal and lateral projections and a AP pelvis. FINDINGS: No evidence for acute process, joint dislocation or significant soft tissue swelling. Osteo phyte formation of the superior acetabulum of the hip. Fixation hardware in the lower spine appears i ntact. Fixation hardware along the proximal left femur appears intact. IMPRESSION: 1. No evidence for acute process. 2. Mild hip osteoarthrosis. 3. Fixation hardware f the spine and left femur appears intact.
[2023-04-04] MEDS: MAGNESIUM HYDROXIDE 2,400 MG/30 ML CUP PO SCH (08:59)
[2023-04-04] MEDS: lamoTRIgine 100 MG TAB PO SCH (09:00)
[2023-04-04] MEDS: HEPARIN SODIUM,PORCINE 5,000 UNIT/ML 1 ML VIAL SQ SCH (09:00)
[2023-04-04] MEDS: PANTOPRAZOLE 40 MG TABLET PO SCH (09:01)
[2023-04-04] MEDS: SENNOSIDES-DOCUSATE SODIUM 1 EACH TAB PO SCH (09:01)
[2023-04-04] MEDS: amLODIPine 5 MG TAB PO SCH (09:01)
[2023-04-04] MEDS: METOPROLOL TARTRATE 25 MG TAB PO SCH (09:02)
[2023-04-04 09:46] VITALS: BP 168/101; PULSE 96; RESP 19; TEMP 97.6
--- NOTE | 2023-04-04 10:22 | P.PN ---
Subjective Progress Note Date: 04/04/23 Principal diagnosis: Status post T10 to pelvis decompression and fusion Patient evaluated today, she is resting in her hospital bed. Patient has continued to improve. She's been up and ambulating with the assistance of therapy. She has been urinating with no difficulties. She is discharged to subacute rehab. Objective - Vital Signs Vital signs: Vital Signs Temp 97.6 F 04/04/23 07:41 Pulse 96 04/04/23 07:41 Resp 19 04/04/23 07:41 BP 168/101 04/04/23 07:41 Pulse Ox 100 04/04/23 07:41 FiO2 Intake & Output 04/03/23 04/04/23 04/04/23 18:59 06:59 18:59 Intake Total 100 Output Total 800 Balance -700 Intake: IV 100 ceFAZolin 2 gm In Sodium 100 Chloride 0.9% 50 ml @ 100 mls/hr IVPB Q8HR [facility] Rx# :[id number] Output: Urine 800 Straight 800 Other: Voiding Method Indwelling Catheter External Catheter # Voids 0 ABP, PAP, CO, CI - Last Documented Arterial Blood Pressure 149/105 - Exam Gen: AOx3, NAD VSS stable at this time Integument: Postoperative dressing is in good position and condition Palpation: Mild tenderness with palpation of the lower lumbar spine ROM: Full range of motion in all major muscle groups of bilateral upper and lower extremities Sensory Exam: Senory exam to light touch is intact C5-T1 Senosry exam to light touch is intact L2-S1 Motor: 5/5 strength bilateral upper extremities with shoulder elevation, shoulder abduction, elbow extension, elbow flexion, wrist extension, wrist flexion, electrical research engineer 4/5 strength appreciated in the bilateral lower extremities with hip flexion, knee extension, knee flexion, plantar flexion, dorsiflexion, EHL, FHL Reflexes: 2/4 in all UE and LE Negative Chucky's, Babinski, clonus bilaterally - Labs CBC & Chem 7: 04/01/23 05:30 04/01/23 05:30 Assessment and Plan Assessment: Postoperative day #4 status post T10 to pelvis decompression and fusion Plan: Pain control, plan for discharge on oral medications Wound care instructions discussed, patient to utilize the Opteform dressing 35 days. Okay to shower directly over the incision after removal of dressing Activity level instructions were discussed, this including no lifting, bending or twisting Continue daily stool softeners Oral antibiotic for prophylaxis at discharge Medical recommendations appreciated Discharge planning: Plan for discharge to subacute rehab today Time with Patient: Less than 30
--- NOTE | 2023-04-04 10:28 | P.DS ---
Providers Date of admission: 03/31/23 05:41 Expected date of discharge: 04/04/23 Attending physician: Bertin Flores DO Consults: 03/31/23 13:59 Consult Physician Routine Consulting Provider: Rolando Beyer Consult Reason/Comments: medical management Do you want consulting provider notified?: Yes 03/31/23 14:00 Consult Physician Routine Consulting Provider: Yecenia Arias Consult Reason/Comments: ICU management Do you want consulting provider notified?: Yes 03/31/23 16:34 Consult Physician Routine Consulting Provider: Perfecto Ferguson Consult Reason/Comments: medical Do you want consulting provider notified?: Yes Primary care physician: Rolando Beyer Hospital Course: Date of admission: 03/30/2023 Date of discharge: 04/04/2023 Admission diagnosis: Status post T10 to pelvis decompression and fusion Discharge diagnosis: Same Attending physician: Dr. Flores Surgical procedures: T10- pelvis decompression and fusion Brief history: Patient is a 68-year-old female with a history of severe low back pain that has been evaluated by Dr. Flores the outpatient setting for significant low back pain and varying degrees of lumbar spondylosis, neural fo raminal and central canal stenosis. At this point patient has failed conservative treatment measures and has opted to proceed with a elective [id number] decompression and fusion. Hospital course: Details of patient's surgery can be found in operative report. Patient tolerated the procedure well and was subsequently transported to orthopedic floor. Patient's orthopeidc and medical care was provided daily. Patient had daily laboratory tests performed for evaluation of overall blood counts. Patient had daily physical therapy to include strengthening range of motion as well as education with walker ambulation. Patient was treated with heparin for their postoperative DVT prophylaxis during their inpatient stay. Patient was noted to have a relatively uneventful postoperative course. Patient reported satisfactory pain control with oral pain medications by postoperative day 2. Patient showed satisfactory progress with physical therapy. Patient moved steadily through the program and had no difficulty meeting the goals by postoperative day 4. Given patient's otherwise satisfactory course and having met physical therapy goals, plan is to discharge patient subacute rehab on postoperative day 4. Discharge condition/disposition: Patient will be discharged rehab in stable condition. Discharge medications: Instructions are given on resumption of patient's normal daily medications per primary care recommendation, in addition patient will be prescribed oxycodone 5 mg, Duricef 500 mg, senna S, Spine Discharge and Recovery Instructions Dressing: Leave your dressing in place for a total of 5 days post operatively. Then you may remove your dressing and leave open to air. Keep the area clean and if not able to keep area clean, then cover with sterile gauze and tape. Showering: You may shower 3 days after your procedure allowing soap and water to run over incision. Do not scrub. Do not soak. Blot dry. Follow up: Please confirm a follow up appointment with your surgeon 3 weeks post operatively. Please make an appointment to follow up with your PCP in 1-2 weeks after surgery for evaluation 3 phase, 3-week plan POST OP WEEKS 1-3 1. Lifting/carrying/pushing/pulling limited to less than 5 pounds. 2. Do not sit for longer than 15 minutes at one time. Get up and walk around. Prolonged sitting is NOT advised. If you lay down, see if you can tolerate laying down on you front (belly side) 3. Walk for periods of 15 minutes = 1 mile but no longer; do it multiple times times each day. 4. Ice your low back after activity. POST OP WEEKS 3-6 1. Lifting limited to less than 20 pounds. 2. Do not sit for longer than 30 minutes at a time. Frequently change positions. Use a sit-to stand workstation or take frequent breaks from sitting if you have returned to work. 3. Walk for 30 minutes each day. If possible, do these three or more times a day POST OP WEEKS 6+ At your 6-week appointment we will give you a physical therapy referral to focus on a core stabilization and strengthening program. You should also work on leg & buttock strengthening, hamstring & quadriceps stretching, and continue a low impact aerobic activity program such as swimming, walking, or riding a stationary bicycle. During the initial 6 weeks after your surgery, you are at the highest risk of re-injuring your spine. You should generally avoid BLTs (bending, lifting and twisting combination motions) and follow the above guidelines to reduce the chance of reinjury. You can anticipate post op appointments in our office at approximately 3 weeks and 6 weeks after your surgery. INCISION CARE: If your incision is not draining you do NOT need to cover it with a dressing. Keep your incision clean, dry and intact. In most cases, we apply skin glue, juancarlos or sutures to the incision at the time of surgery. This will be like a crust or have the appearance of a scab and will fall off in time on its own. The stitches or juancarlos need to be removed at 3 weeks post op appointment. You may begin to shower 3 days after surgery (this allows the glue to blake well). However, please avoid scrubbing the incision site or peeling off any of the skin glue. This will ensure optimal healing of your incision. Also, during this time avoid soaking the incision area in water - this includes swimming pools, hot tubs or baths. No ointments, lotions or oils on the incision until your surgeon allows. Leave juancarlos, sutures or glue in place. Neurological dysfunction that comes on suddenly can also be a sign of a stroke. Below some common symptoms of a stroke are listed: B - balance difficulty such as sudden onset walking or leaning to one side - NEW E - eye problem such as sudden double vision or trouble seeing on one side - NEW F - Facial weakness or numbness on one side - NEW A - Arm or leg weakness or numbness on one side - NEW S - Slurred speech or difficulty with word finding - NEW T - Time is BRAIN! Call 911 as soon as you recognize these symptoms Diet: Consume a regular diet rich in vegetables and lean protein such as chicken or fish. You should consume in a ratio of approximately 20% fats|40% carbohydrates|40%protein. Vegetables, sweet potatoes, brown rice or quinoa are examples of good carbohydrates. Chips, white bread, cookies and sweets/sugar are examples of bad carbohydrates. Limit your bad carbs, go wild with good carbs. "Life's Simple 7" Guidelines as per [place] [employer] These will help you reclaim your life after surgery and hot tar roofer helper in your recovery, keeping in mind your restrictions. (1) Get Active. Physical activity can help people lose weight, control high blood pressure and cholesterol, feel emotionally better, and sleep better. (2) Control Cholesterol. Avoid a diet high in saturated fat, trans fat, & cholesterol. Limit whole milk & cream, ice cream, butter, egg yolks, processed meats (like sausage and hot dogs), and fatty meats. Choose healthy foods that are low in saturated fat, trans fat and cholesterol which include: Fruits and vegetables, fiber rich grain products (like whole grain pasta and brown rice), lean meat such as chicken, fish, nuts, seeds, and legumes. (3) Eat Better. Eat small portions. Shop at the grocery with a list and do not stray from it. Tips for a healthy diet include: Limit sodium intake to less than 1500mg daily, avoid prepackaged, processed, and fast foods, choose a diet rich in fruits, vegetables, and whole grain, high fiber foods, and limit saturated & cholesterol in your diet. (4) Manage Blood Pressure. If you have high blood pressure, you should have a cuff at home so that you can check your blood pressure regularly. Be sure you have a good cuff. An arm one is generally better than a wrist one. Bring the cuff to a doctor's appointment to validate that the measurements that your cuff are taking are accurate. Take your blood pressure twice daily when you are sitting down and relaxing. Record the numbers in a log and bring this log with you to your doctors' appointments. (5) Lose Weight if your BMI is above 25. A healthy BMI is between 19-25. To calculate Your BMI, you may use a Standard BMI Calculator on the NIH BMI website: <www.nhlbi.nih.gov/guidelines/obesity/BMI/bmicalc.htm>. Weigh oneself daily. If you are overweight, set a goal to lose weight. A pound a week loss if needed is a good target. (6) Reduce Blood Sugar. Limit foods and liquids with "added sugars." (Added sugars include sucrose, fructose, glucose, maltose, dextrose, high fructose corn syrup, corn syrup, concentrated fruit juice and honey). (7) Stop Smoking. If you smoke, quitting smoking is one of the best things that you can do for your health. Smoking increases your risk of heart attack, stroke, and peripheral vascular disease, which is a build-up of plaque in your arteries. Please discard all the cigarettes and lighters in your house. Have a plan for what you will do when you have the urge to smoke. Direct and second- hand smoke shortens your life as well as the lives of your family, friends and others around you. For your health and the health of those around you, please consider quitting! Proper Bending Body Mechanics: Maintain a wide stance with one foot slightly in front of the other. Keep your back straight. Bend utilizing the strength in your hips and knees. Do not bend at the waist. Maintain the lifted object at your waist-level close to your body. Avoid lifting weight that causes immediately pain or pain anywhere in the body afterwards. Smoking/Nicotine If there was ever one thing that you could do to increase your overall health, decrease your risk of cardiovascular problems by about 39% the second you make the choice, it is to STOP SMOKING. Your body's most instant gratification is the second you stop smoking. We have all heard the studies, read the articles but it is true, smoking is extremely bad for your overall health, and moreover it is detrimental to your bone health. Nicotine, IN ANY FORM, kills bone cells, prevents your body from healing fractures, and significantly prolongs healing after surgery. In spine surgery specifically, it increases your risk of not healing your bones to create a fusion and increases your risk of having a revision surgery due to this up to 60%. I know it is hard. I know it feels impossible. But there are ways. Take control of your life. We are here to help you through it. And when you are ready, ask us and we can direct you to help if you desire. Use the START Plan to Quit Smoking (please visit the [employer].org website listed below for more information): S = Set a quit date. Choose a date within the next 2 weeks, so you have enough time to prepare wit hout losing your motivation to quit. If you mainly smoke at work, quit on the weekend, so you have a few days to adjust to the change. T = Tell family, friends, and co-workers that you plan to quit. Let your friends and family in on your plan to quit smoking and tell them you need their support and encouragement to stop. Look for a quit inessa who wants to stop smoking as well. You can help each other get through the rough times. A = Anticipate and plan for the challenges you'll face while quitting. Most people who begin smoking again do so within the first 3 months. You can help yourself make it through by preparing ahead for common challenges, such as nicotine withdrawal and cigarette cravings. R = Remove cigarettes and other tobacco products from your home, car, and work. Throw away all your cigarettes (no emergency pack!), lighters, ashtrays, and matches. Wash your clothes and freshen up anything that smells like smoke. Shampoo your car, clean your drapes and carpet, and steam your furniture. T = Talk to your doctor about getting help to quit. Your doctor can prescribe medication to help with withdrawal and suggest other alternatives. If you can't see a doctor, you can get many products over the counter at your local pharmacy or grocery store, including the nicotine patch, nicotine lozenges, and nicotine gum. Resources for Quitting Smoking: <https://www.[place].gov/documents/[facility]/Quit_Tobacco_Resources_for_patients_313 480_7.pdf> Supplementation: Take recommended dosages of Vitamin D and Calcium to help fortify your bones and help them to heal. See your health maintenance packet for dosages and recommended levels. DVT/VTE prophylaxis: You will be given compression stockings from the hospital. Wear these daily for the first two weeks after surgery. You may take them off at night. You may be prescribed a medication to help thin your blood. Take this as directed. If you are not prescribed this medication, early and frequent ambulation has been shown to be the best prophylaxis to deep vein thrombosis and sequelae related to this event. Procedures: [id number] decompression and fusion Patient Condition at Discharge: Good Plan - Discharge Summary Discharge Rx Participant: No New Discharge Prescriptions: New Sennosides/Docusate Sodium [Senna-S 8.6-50 mg Tablet] 2 each PO DAILY PRN #30 tablet PRN Reason: Constipation cefaDROXiL [Duricef] 500 mg PO Q12HR 5 Days #10 cap oxyCODONE HCL [OxyIR] 5 - 10 mg PO Q6H PRN 7 Days #28 tab PRN Reason: Pain No Action traZODone HCL 150 mg PO HS hydrOXYzine pamoate [Vistaril] 25 mg PO BID PRN #60 cap PRN Reason: Anxiety QUEtiapine [SEROquel] 300 mg PO HS 30 Days #90 tab lamoTRIgine [LaMICtal] 200 mg PO BID 30 Days #60 tablet Vitamin C (Unknown Dose) 1 tab PO DAILY Multivitamin/Iron/Folic Acid [Centrum Adults Tablet] 1 each PO DAILY Glucosam/Patrice-Msm1/C/Cesar/Bosw [Glucosamine-Chondroitin Tablet] 1 each PO DAILY Turmeric (Unknown Dose) 1 tab PO DAILY Levothyroxine Sodium [Synthroid] 88 mcg PO QAM oxyCODONE HCL [oxyCODONE HCL (IR)] 5 mg PO TID Discharge Medication List traZODone HCL 150 mg PO HS 04/10/16 [History] QUEtiapine [SEROquel] 300 mg PO HS 30 Days #90 tab 02/08/18 [Rx] hydrOXYzine pamoate [Vistaril] 25 mg PO BID PRN #60 cap 02/08/18 [Rx] lamoTRIgine [LaMICtal] 200 mg PO BID 30 Days #60 tablet 02/08/18 [Rx] Glucosam/Patrice-Msm1/C/Cesar/Bosw [Glucosamine-Chondroitin Tablet] 1 each PO DAILY 03/30/23 [History] Levothyroxine Sodium [Synthroid] 88 mcg PO QAM 03/30/23 [History] Multivitamin/Iron/Folic Acid [Centrum Adults Tablet] 1 each PO DAILY 03/30/23 [History] Turmeric (Unknown Dose) 1 tab PO DAILY 03/30/23 [History] Vitamin C (Unknown Dose) 1 tab PO DAILY 03/30/23 [History] oxyCODONE HCL [oxyCODONE HCL (IR)] 5 mg PO TID 04/03/23 [History] Sennosides/Docusate Sodium [Senna-S 8.6-50 mg Tablet] 2 each PO DAILY PRN #30 tablet 04/04/23 [Rx] cefaDROXiL [Duricef] 500 mg PO Q12HR 5 Days #10 cap 04/04/23 [Rx] oxyCODONE HCL [OxyIR] 5 - 10 mg PO Q6H PRN 7 Days #28 tab 04/04/23 [Rx] Follow up Appointment(s)/Referral(s): [facility], [NON-STAFF] - 1 Week Bertin Flores DO [Doctor of Osteopathic Medicine] - 10 Days Activity/Diet/Wound Care/Special Instructions: Spine Discharge and Recovery Instructions Dressing: Leave your dressing in place for a total of 5 days post operatively. Then you may remove your dressing and leave open to air. Keep the area clean and if not able to keep area clean, then cover with sterile gauze and tape. Showering: You may shower 3 days after your procedure allowing soap and water to run over incision. Do not scrub. Do not soak. Blot dry. Follow up: Please confirm a follow up appointment with your surgeon 3 weeks post operatively. Please make an appointment to follow up with your PCP in 1-2 weeks after surgery for evaluation 3 phase, 3-week plan POST OP WEEKS 1-3 1. Lifting/carrying/pushing/pulling limited to less than 5 pounds. 2. Do not sit for longer than 15 minutes at one time. Get up and walk around. Prolonged sitting is NOT advised. If you lay down, see if you can tolerate laying down on you front (belly side) 3. Walk for periods of 15 minutes = 1 mile but no longer; do it multiple times times each day. 4. Ice your low back after activity. POST OP WEEKS 3-6 1. Lifting limited to less than 20 pounds. 2. Do not sit for longer than 30 minutes at a time. Frequently change positions. Use a sit-to stand workstation or take frequent breaks from sitting if you have returned to work. 3. Walk for 30 minutes each day. If possible, do these three or more times a day POST OP WEEKS 6+ At your 6-week appointment we will give you a physical therapy referral to focus on a core stabilization and strengthening program. You should also work on leg & buttock strengthening, hamstring & quadriceps stretching, and continue a low impact aerobic activity program such as swimming, walking, or riding a stationary bicycle. During the initial 6 weeks after your surgery, you are at the highest risk of re-injuring your spine. You should generally avoid BLTs (bending, lifting and twisting combination motions) and follow the above guidelines to reduce the chance of reinjury. You can anticipate post op appointments in our office at approximately 3 weeks and 6 weeks after your surgery. INCISION CARE: If your incision is not draining you do NOT need to cover it with a dressing. Keep your incision clean, dry and intact. In most cases, we apply skin glue, juancarlos or sutures to the incision at the time of surgery. This will be like a crust or have the appearance of a scab and will fall off in time on its own. The stitches or juancarlos need to be removed at 3 weeks post op appointment. You may begin to shower 3 days after surgery (this allows the glue to blake well). However, please avoid scrubbing the incision site or peeling off any of the skin glue. This will ensure optimal healing of your incision. Also, during this time avoid soaking the incision area in water - this includes swimming pools, hot tubs or baths. No ointments, lotions or oils on the incision until your surgeon allows. Leave juancarlos, sutures or glue in place. Neurological dysfunction that comes on suddenly can also be a sign of a stroke. Below some common symptoms of a stroke are listed: B - balance difficulty such as sudden onset walking or leaning to one side - NEW E - eye problem such as sudden double vision or trouble seeing on one side - NEW F - Facial weakness or numbness on one side - NEW A - Arm or leg weakness or numbness on one side - NEW S - Slurred speech or difficulty with word finding - NEW T - Time is BRAIN! Call 911 as soon as you recognize these symptoms Diet: Consume a regular diet rich in vegetables and lean protein such as chicken or fish. You should consume in a ratio of approximately 20% fats|40% carbohydrates|40%protein. Vegetables, sweet potatoes, brown rice or quinoa are examples of good carbohydrates. Chips, white bread, cookies and sweets/sugar are examples of bad carbohydrates. Limit your bad carbs, go wild with good carbs. "Life's Simple 7" Guidelines as per [place] [employer] These will help you reclaim your life after surgery and hot tar roofer helper in your recovery, keeping in mind your restrictions. (1) Get Active. Physical activity can help people lose weight, control high blood pressure and cholesterol, feel emotionally better, and sleep better. (2) Control Cholesterol. Avoid a diet high in saturated fat, trans fat, & cholesterol. Limit whole milk & cream, ice cream, butter, egg yolks, processed meats (like sausage and hot dogs), and fatty meats. Choose healthy foods that are low in saturated fat, trans fat and cholesterol which include: Fruits and vegetables, fiber rich grain products (like whole grain pasta and brown rice), lean meat such as chicken, fish, nuts, seeds, and legumes. (3) Eat Better. Eat small portions. Shop at the grocery with a list and do not stray from it. Tips for a healthy diet include: Limit sodium intake to less than 1500mg daily, avoid prepackaged, processed, and fast foods, choose a diet rich in fruits, vegetables, and whole grain, high fiber foods, and limit saturated & cholesterol in your diet. (4) Manage Blood Pressure. If you have high blood pressure, you should have a cuff at home so that you can check your blood pressure regularly. Be sure you have a good cuff. An arm one is generally better than a wrist one. Bring the cuff to a doctor's appointment to validate that the measurements that your cuff are taking are accurate. Take your blood pressure twice daily when you are sitting down and relaxing. Record the numbers in a log and bring this log with you to your doctors' appointments. (5) Lose Weight if your BMI is above 25. A healthy BMI is between 19-25. To calculate Your BMI, you may use a Standard BMI Calculator on the NIH BMI website: <www.nhlbi.nih.gov/guidelines/obesity/BMI/bmicalc.htm>. Weigh oneself daily. If you are overweight, set a goal to lose weight. A pound a week loss if needed is a good target. (6) Reduce Blood Sugar. Limit foods and liquids with "added sugars." (Added sugars include sucrose, fructose, glucose, maltose, dextrose, high fructose corn syrup, corn syrup, concentrated fruit juice and honey). (7) Stop Smoking. If you smoke, quitting smoking is one of the best things that you can do for your health. Smoking increases your risk of heart attack, stroke, and peripheral vascular disease, which is a build-up of plaque in your arteries. Please discard all the cigarettes and lighters in your house. Have a plan for what you will do when you have the urge to smoke. Direct and second- hand smoke shortens your life as well as the lives of your family, friends and others around you. For your health and the health of those around you, please consider quitting! Proper Bending Body Mechanics: Maintain a wide stance with one foot slightly in front of the other. Keep your back straight. Bend utilizing the strength in your hips and knees. Do not bend at the waist. Maintain the lifted object at your waist-level close to your body. Avoid lifting weight that causes immediately pain or pain anywhere in the body afterwards. Smoking/Nicotine If there was ever one thing that you could do to increase your overall health, decrease your risk of cardiovascular problems by about 39% the second you make the choice, it is to STOP SMOKING. Your body's most instant gratification is the second you stop smoking. We have all heard the studies, read the articles but it is true, smoking is extremely bad for your overall health, and moreover it is detrimental to your bone health. Nicotine, IN ANY FORM, kills bone cells, prevents your body from healing fractures, and significantly prolongs healing after surgery. In spine surgery specifically, it increases your risk of not healing your bones to create a fusion and increases your risk of having a revision surgery due to this up to 60%. I know it is hard. I know it feels impossible. But there are ways. Take control of your life. We are here to help you through it. And when you are ready, ask us and we can direct you to help if you desire. Use the START Plan to Quit Smoking (please visit the [employer] website listed below for more information): S = Set a quit date. Choose a date within the next 2 weeks, so you have enough time to prepare without losing your motivation to quit. If you mainly smoke at work, quit on the weekend, so you have a few days to adjust to the change. T = Tell family, friends, and co-workers that you plan to quit. Let your friends and family in on your plan to quit smoking and tell them you need their support and encouragement to stop. Look for a quit inessa who wants to stop smoking as well. You can help each other get through the rough times. A = Anticipate and plan for the challenges you'll face while quitting. Most people who begin smoking again do so within the first 3 months. You can help yourself make it through by preparing ahead for common challenges, such as nicotine withdrawal and cigarette cravings. R = Remove cigarettes and other tobacco products from your home, car, and work. Throw away all your cigarettes (no emergency pack!), lighters, ashtrays, and matches. Wash your clothes and freshen up anything that smells like smoke. Shampoo your car, clean your drapes and carpet, and steam your furniture. T = Talk to your doctor about getting help to quit. Your doctor can prescribe medication to help with withdrawal and suggest other alternatives. If you can't see a doctor, you can get many products over the counter at your local pharmacy or grocery store, including the nicotine patch, nicotine lozenges, and nicotine gum. Resources for Quitting Smoking: <https:/ /www.[place].gov/documents/[facility]/Quit_Tobacco_Resources_for_patients_313480_7.pd f> Supplementation: Take recommended dosages of Vitamin D and Calcium to help fortify your bones and help them to heal. See your health maintenance packet for dosages and recommended levels. DVT/VTE prophylaxis: You will be given compression stockings from the hospital. Wear these daily for the first two weeks after surgery. You may take them off at night. You may be prescribed a medication to help thin your blood. Take this as directed. If you are not prescribed this medication, early and frequent ambulation has been shown to be the best prophylaxis to deep vein thrombosis and sequelae related to this event. Discharge Disposition: TRANSFER TO SNF/ECF
--- NOTE | 2023-04-04 10:46 | P.PN ---
Subjective Progress Note Date: 04/04/23 This is a 68-year-old female patient with a known history of anxiety/depression, bipolar disorder, former smoker who is been having significant lumbar back pain and was brought in today electively for a T10 to pelvis revision decompression and fusion. Due to the length of her surgery she was admitted to the intensive care unit postoperatively. Currently she is laying flat in bed. Awake and alert in no acute distress. Maintaining O2 saturations in the 90s on 2 L/m per nasal cannula. Somewhat hypertensive. She did require 2 units of packed red blood cells. White count 6.2. Hemoglobin 11.1. Platelets 260. Glucose 173. Lactated Ringer's at 20 MLs per hour. She has a right brachial arterial line in place. Right internal jugular triple-lumen catheter in place. She is receiving cefazolin. Chest x-ray revealed no pneumothorax. Evidence of COPD with bilateral lower lobe infiltrate/atelectasis. The patient is seen today 04/02/2023 in follow-up on the regular medical floor. She is currently sitting up in a chair. Awake and alert in no acute distress. She is maintaining O2 saturations in the 90s on 2 L/m per nasal cannula. Follow up computed tomography scan of the lumbar spine revealed appropriate postoperative alignment. Her pain is fairly well controlled. She is status post 2 units of packed red blood cells this admission. Most recent hemoglobin 13.0. Glucose 129. She remains on cefazolin. Lactated Ringer's at KVO. Patient's urine is quite dark. Her mouth is dry. The patient is seen today 04/03/2023 in follow-up on the regular medical floor. She is currently resting in bed. Awake and alert in no acute distress. She is maintaining O2 saturations in the mid 90s on room air. She's been afebrile. Blood pressure better controlled. She remains on cefazolin. Heparin for DVT prophylaxis. Pain is well controlled. Working well with the incentive spirometer. Tolerating a regular diet. The patient did sustain a fall onto her left side yesterday while transferring herself from the chair back to bed. She does have a large bruise over her left hip. Dressing to her surgical spine site was dry and intact. The patient is seen today 04/04/2023 in follow-up on the regular medical floor. She is awake and alert in no acute distress. Resting fairly comfortably in bed. Maintaining good O2 saturations in the 90s on room air. She's been afebrile. No new labs today. She is continued on cefazolin. Heparin for DVT prophylaxis. She continues to work well with the incentive spirometer. Denies any worsening shortness of breath, cough or congestion. Objective - Vital Signs Vital signs: Vital Signs Temp 97.6 F 04/04/23 07:41 Pulse 96 04/04/23 07:41 Resp 19 04/04/23 07:41 BP 168/101 04/04/23 07:41 Pulse Ox 100 04/04/23 07:41 FiO2 Intake & Output 04/03/23 04/04/23 04/04/23 18:59 06:59 18:59 Intake Total 100 Output Total 800 Balance -700 Intake: IV 100 ceFAZolin 2 gm In Sodium 100 Chloride 0.9% 50 ml @ 100 mls/hr IVPB Q8HR [facility] Rx# :[id number] Output: Urine 800 Straight 800 Other: Voiding Method Indwelling Catheter External Catheter # Voids 0 ABP, PAP, CO, CI - Last Documented Arterial Blood Pressure 149/105 - Exam GENERAL EXAM: Alert, pleasant 68-year-old female, on room air, comfortable in no apparent distress. HEAD: Normocephalic. EYES: Normal reaction of pupils, equal size. NOSE: Clear with pink turbinates. THROAT: No erythema or exudates. NECK: No masses, no JVD. CHEST: No chest wall deformity. LUNGS: Equal air entry with no crackles, wheeze, rhonchi or dullness. CVS: S1 and S2 normal with no audible murmur, regular rhythm. ABDOMEN: No hepatosplenomegaly, normal bowel sounds, no guarding or rigidity. SPINE: No scoliosis or deformity, dressing dry and intact SKIN: No rashes CENTRAL NERVOUS SYSTEM: No focal deficits, tone is normal in all 4 extremities. EXTREMITIES: Ecchymosis over left hip There is no peripheral edema. No clubbing, no cyanosis. Peripheral pulses are intact. - Labs CBC & Chem 7: 04/01/23 05:30 04/01/23 05:30 Assessment and Plan Assessment: Lumbar pain, status post elective T10 to pelvis revision decompression and fusion. Postoperative day #4 Status post fall with left hip pain, x-rays revealed no fracture, hardware intact Hypertension History of anxiety/depression History of bipolar disorder Former smoker Plan: The patient was seen and evaluated Medications reviewed Currently stable and on room air Working well with the incentive spirometer Increase her activity as tolerated Plan is for subacute rehabilitation at discharge This patient was seen independently by the pulmonary nurse practitioner who performed the medical decision-making I have personally seen and examined the patient, performed the documentation and the assessment and plan as written. Number of minutes spent on the visit: 20.
--- NOTE | 2023-04-04 11:52 | P.PN ---
Subjective Progress Note Date: 04/04/23 Hospital course: Patient is a very pleasant 68-year-old female with history of prior provoked DVTs, thyroid nodules status post left thyroidectomy on thyroid replacement, osteoarthritis, and prior iron deficiency anemia. Patient presented to the hospital on 03/31/23 for elective T10 to pelvis revision fusion. We are following for postoperative medical management. Physical exam: Patient seen and fully evaluated at bedside this morning. Patient being discharged by orthospine surgery team today. Patient was updated that [facility] has accepted patient. Patient denies having any needs or concerns at this time. Vital signs reviewed General: nontoxic, moderate distress, appears at stated age Derm: warm, dry Eyes: EOMI, no lid lag, anicteric sclera, pupils equal round reactive to light ENT: Nose and ears atraumatic Cardiovascular: S1S2 tachycardic, no murmur, positive posterior tibial pulse bilateral, no edema, capillary refill less than 2 seconds Lungs: clear to auscultation bilateral, no rhonchi, no rales, no wheeze, no accessory muscle use Abdominal: soft, nontender to palpation, no guarding, no appreciable organomegaly Ext: no gross muscle atrophy, no contractures Neuro: CN II-XII grossly intact, light touch intact all 4 extremities, able to wiggle bilateral toes, and moving bilateral arms without difficulties psych: Alert, oriented, appears anxious/upset Assessment/Plan: 68-year-old female status post T10 to pelvis revision. Tachycardia and elevated BP in a patient without a previous diagnosis of underlying HTN -Patient was started on metoprolol 25 mg twice daily and amlodipine 5 mg daily. Heart rate and blood pressure has since been improved. Bipolar disorder -Pt to continue Lamictal 200 mg twice daily, Seroquel 300 mg at night, trazodone 150 mg at night Severe postoperative pain Status post T10 to pelvis revision -Management per primary admitting orthopedic surgery team including DVT prophylaxis, pain management, wound/dressing/strain management, and PT/OT. -Pro-orthospine surgery team DVT prophylaxis with SCDs. Chronic: Prior history of DVT after knee surgery History of iron deficiency anemia Hypothyroidism- Continue home medication regimen with Synthroid 88 mcg Grade 2 diastolic dysfunction, mild AR Imaging: -None new Data Review: -Vital signs reviewed. Blood pressure 168/101, heart rate 96, respiratory rate 19, temp 97.6F, and SpO2 100% on room air. Patient being medicated for hypertension with amlodipine and metoprolol as ordered. Thank you for allowing us to participate in the care of this pleasant patient. Do not hesitate to contact us with questions. Someone can be reached from the [facility] hospitalist group all hours of the day at [phone] or via perfect serve. Patient was seen independently by Nurse Pracitioner. This document was prepared using [employer] dictation software. Please allow for errors in golf club head inspector and adjuster, while rare they do occur. Gregory Staley NP rendered care for this patient independently, reviewed the findings and plan as documented in the note above. I did not physically speak with or examine the patient on this date. Objective - Vital Signs Vital signs: Vital Signs Temp 98.2 F 04/04/23 01:45 Pulse 86 04/04/23 01:45 Resp 18 04/04/23 01:45 BP 138/80 04/04/23 01:45 Pulse Ox 97 04/04/23 01:45 FiO2 Intake & Output 04/03/23 04/04/23 04/04/23 18:59 06:59 18:59 Intake Total 100 Output Total 800 Balance -700 Intake: IV 100 ceFAZolin 2 gm In Sodium 100 Chloride 0.9% 50 ml @ 100 mls/hr IVPB Q8HR [facility] Rx# :[id number] Output: Urine 800 Straight 800 Other: Voiding Method Indwelling Catheter External Catheter # Voids 0 ABP, PAP, CO, CI - Last Documented Arterial Blood Pressure 149/105 - Labs CBC & Chem 7: 04/01/23 05:30 04/01/23 05:30
--- NOTE | 2023-04-06 21:46 | CDI ---
Documentation Clarification Form Date: 04/06/2023 09:27:09 PM From: Heidy Tapia Phone: Admit Date: 03/31/2023 05:41:00 AM Patient Name: Darline Chiang Visit Number: [id number] Discharge Date: 04/04/2023 02:04:00 PM ATTENTION: The Clinical Documentation Specialists (CDI) and [facility] Coding Staff appreciate your assistance in clarifying documentation. Please respond to the clarification below the line at the bottom and electronically sign. The CDI & [facility] Coding staff will review the response and follow-up if needed. Please note: Queries are made part of the Legal Health Record. If you have any questions, please contact the author of this message via ITS. Dr. Bertin Flores Osteoporosis and collapsedlumbar vertebra are documented per notes. Additional clarification regarding the type of osteoporosis is requested. Patient history/risk factors: 68yo F, Lumbar/LS spondylosis with radiculopathy & stenosis, COPD, HTN, AR, Other spinal cerebrospinal fluid leak, Osteoporosis, collapsedlumbar vertebra, thoracolumbar fatigue Fx, DDD TL Clinical indicators: Radiology report(s): Intraoperative changes are seen including vertebral plasty. Resolution exam is limited. Treatment: [id number] revision decompression and fusion Please clarify if there is a relationship between collapsedlumbar vertebra and osteoporosis, if known: [ ] Collapsedlumbar vertebra is due to osteoporosis [ ] Collapsedlumbar vertebra is not due to osteoporosis [ ] Collapsedlumbar vertebra osteoporosis other (please specify): [ ] Unable to Determine (Template Last Revised: June 2020) Collapsedlumbar vertebra is due to osteoporosis MTDD
--- NOTE | 2023-04-06 21:56 | CDI ---
Documentation Clarification Form Date: 04/06/2023 09:47:00 PM From: Heidy Tapia Phone: Admit Date: 03/31/2023 05:41:00 AM Patient Name: Darline Chiang Visit Number: [id number] Discharge Date: 04/04/2023 02:04:00 PM ATTENTION: The Clinical Documentation Specialists (CDI) and [facility] Coding Staff appreciate your assistance in clarifying documentation. Please respond to the clarification below the line at the bottom and electronically sign. The CDI & [facility] Coding staff will review the response and follow-up if needed. Please note: Queries are made part of the Legal Health Record. If you have any questions, please contact the author of this message via ITS. Dr. Bertin Flores Your patient received: 2 units of pRBCintraop. Please clarify what condition/diagnosis is being treated. History/Risk Factors: Lumbar/LS spondylosis with radiculopathy & stenosis, Hx iron deficiency anemia, COPD, HTN, AR, other dural leak, osteoporosis, collapsed lumbar vertebra, thoracolumbar fatigue Fx, TL DDD Clinical indicators: Hgb: 03/31 11.1 12 Hct: 03/31 34.3 04/01 39.0 Treatment: post2 units of pRBCintraop What diagnosis are you treating with 2 units of pRBC? [ ] Iron deficiency anemia [ ] Intra/Postop Acute blood loss anemia [ ] No additional diagnosis [ ] Other, please specify [ ] Unable to determine (Template Last Reviewed: May 2020) Intra/Postop Acute blood loss anemia MTDD
== END 2023-04-04 14:04 | DRG 454 ==
LOC: 2ORMAIN 03-31 05:41 → 2SICU 03-31 14:35 → 4SSUR 04-01 14:00
PROVIDERS: ADMIT Orthopaedic Surgery; ATTEND Orthopaedic Surgery
PROC: 0SG1071 Fusion of 2 or more Lumbar Vertebral Joints with Autologous Tissue Substitute, Posterior Approach, Posterior Column, Open Approach (ICD-10-PCS; 2023-03-31)
PROC: 0SG30AJ Fusion of Lumbosacral Joint with Interbody Fusion Device, Posterior Approach, Anterior Column, Open Approach (ICD-10-PCS; 2023-03-31)
PROC: 0SG3071 Fusion of Lumbosacral Joint with Autologous Tissue Substitute, Posterior Approach, Posterior Column, Open Approach (ICD-10-PCS; 2023-03-31)
PROC: 0ST20ZZ Resection of Lumbar Vertebral Disc, Open Approach (ICD-10-PCS; 2023-03-31)
PROC: 01NB0ZZ Release Lumbar Nerve, Open Approach (ICD-10-PCS; 2023-03-31)
PROC: 0QH304Z Insertion of Internal Fixation Device into Left Pelvic Bone, Open Approach (ICD-10-PCS; 2023-03-31)
PROC: 0QH204Z Insertion of Internal Fixation Device into Right Pelvic Bone, Open Approach (ICD-10-PCS; 2023-03-31)
PROC: 0QB00ZZ Excision of Lumbar Vertebra, Open Approach (ICD-10-PCS; 2023-03-31)
PROC: 00UT07Z Supplement Spinal Meninges with Autologous Tissue Substitute, Open Approach (ICD-10-PCS; 2023-03-31)
PROC: 01N80ZZ Release Thoracic Nerve, Open Approach (ICD-10-PCS; 2023-03-31)
PROC: 01NB0ZZ Release Lumbar Nerve, Open Approach (ICD-10-PCS; 2023-03-31)
PROC: 01NR0ZZ Release Sacral Nerve, Open Approach (ICD-10-PCS; 2023-03-31)
PROC: 30233N1 Transfusion of Nonautologous Red Blood Cells into Peripheral Vein, Percutaneous Approach (ICD-10-PCS; 2023-03-31)
PROC: 8E0WXBZ Computer Assisted Procedure of Trunk Region (ICD-10-PCS; 2023-03-31)
PROC: 4A1 Measurement and Monitoring, Physiological Systems, Monitoring (ICD-10-PCS; 2023-03-31)
PROC: 0SG10AJ Fusion of 2 or more Lumbar Vertebral Joints with Interbody Fusion Device, Posterior Approach, Anterior Column, Open Approach (ICD-10-PCS; principal; 2023-03-31 07:30)
DX: M47.26 Other spondylosis with radiculopathy, lumbar region (principal); D62 Acute posthemorrhagic anemia; G96.09 Other spinal cerebrospinal fluid leak; M48.56XA Collapsed vertebra, not elsewhere classified, lumbar region, initial encounter for fracture; M47.816 Spondylosis without myelopathy or radiculopathy, lumbar region; M41.84 Other forms of scoliosis, thoracic region; M48.04 Spinal stenosis, thoracic region; F10.11 Alcohol abuse, in remission; F31.9 Bipolar disorder, unspecified; J44.9 Chronic obstructive pulmonary disease, unspecified; I10 Essential (primary) hypertension; I35.1 Nonrheumatic aortic (valve) insufficiency; E89.0 Postprocedural hypothyroidism; M48.062 Spinal stenosis, lumbar region with neurogenic claudication; M47.27 Other spondylosis with radiculopathy, lumbosacral region; M48.07 Spinal stenosis, lumbosacral region; F41.9 Anxiety disorder, unspecified; M47.24 Other spondylosis with radiculopathy, thoracic region; M51.36 Other intervertebral disc degeneration, lumbar region; M16.0 Bilateral primary osteoarthritis of hip; M51.46 Schmorl's nodes, lumbar region; G47.9 Sleep disorder, unspecified; M25.78 Osteophyte, vertebrae; G89.18 Other acute postprocedural pain; G89.29 Other chronic pain; M48.45 Fatigue fracture of vertebra, thoracolumbar region; R00.0 Tachycardia, unspecified; W18.30XA Fall on same level, unspecified, initial encounter; Y92.230 Patient room in hospital as the place of occurrence of the external cause; Z96.652 Presence of left artificial knee joint; Z90.89 Acquired absence of other organs; Z86.718 Personal history of other venous thrombosis and embolism; Z79.899 Other long term (current) drug therapy; Z79.890 Hormone replacement therapy; Z87.891 Personal history of nicotine dependence; Z98.84 Bariatric surgery status
CPT/HCPCS: 36430; 71045; 72100; 72128; 72131; 73502; 80048; 85025; 86850; 86891; 86900; 86901; 86920; 94760

== ENCOUNTER → 2023-03-26 | Outpatient (CLI) | payer MEDICARE, BC ==
[2023-03-26 15:37] LABS: HCT 40.1 % (37.2-46.3); HGB 12.4 g/dL (12.0-15.0); MCH 28.4 pg (27.0-32.0); MCHC 30.9 g/dL (32.0-37.0); MCV 91.8 FL (80.0-97.0); Mean Platelet Volume 10.1 FL (9.5-12.2); NRBC Per 100 WBC 0 X 10*3/uL (0.00-0.01); Platelet Count 316 X 10*3/uL (140-440); RBC 4.37 X 10*6/uL (4.10-5.20); RDW 22.8 % (11.5-14.5)
[2023-03-26 16:31] LABS: Blood Urea Nitrogen 29.4 mg/dL (9.0-27.0); Chloride 105 mmol/L (96-109); Glucose 95 mg/dL (70-110); Potassium 5.2 mmol/L (3.5-5.5); Sodium 140 mmol/L (135-145)
[2023-03-26 16:32] LABS: ALT 24 U/L (8-44); AST 19 U/L (13-35); Albumin 4.6 g/dL (3.8-4.9); Albumin/Globulin Ratio 2.09 Ratio (1.60-3.17); Alkaline Phosphatase 76 U/L (41-126); Calcium 10.7 mg/dL (8.7-10.3); Carbon Dioxide 26.3 mmol/L (21.6-31.8); Globulin 2.2 g/dL (1.6-3.3); Total Bilirubin <0.2 mg/dL (0.3-1.2); Total Protein 6.8 g/dL (6.2-8.2)
[2023-03-26 19:11] LABS: Prothrombin Time 10.8 sec (9.9-11.9)
== END | disposition home or self-care (01) ==
LOC: LABWHC1 08:42
PROVIDERS: ATTEND Orthopaedic Surgery
DX: M47.26 Other spondylosis with radiculopathy, lumbar region (principal)
CPT/HCPCS: 36415; 80053; 82306; 85027; 85610; 86850; 86900; 86901; 87070

== ENCOUNTER 2023-04-12 12:12 | Inpatient (IN) | payer MEDICARE, BC ==
[2023-04-12] MEDS ORDERED: MORPHINE SULFATE 4 MG/ML SYRINGE IV STA (12:37)
[2023-04-12] MEDS ORDERED: SODIUM CHLORIDE 0.9% 1,000 ML IV STA ×3 (12:37→15:33)
--- NOTE | 2023-04-12 12:44 | ED ---
Chest Pain HPI - General Chief Complaint: Chest Pain Stated Complaint: Chest Pain Time Seen by Provider: 04/12/23 12:16 Source: EMS, RN notes reviewed, old records reviewed Mode of arrival: EMS Limitations: no limitations - History of Present Illness Initial Comments: This is a 68 female to the ED who does appear to be having altered mental status. Patient does not appear be speaking appropriately, she does have pain and thought issues currently. Patient is here complaining of chest pain currently. Patient does state that she had a recent back surgery but she is stating that surgery was in October does appear looking at records the surgery was 2 weeks ago. Unknown blood patient's baseline mental status is. Per transfer records she was transferred for chest pain today MD Complaint: chest pain -: hour(s) Onset: during rest, during exertion Pain Location: substernal, left chest Pain Radiation: none Severity: moderate Severity scale (1-10): 4 Quality: tightness, heaviness Consistency: constant Improves With: nothing Worsens With: nothing Anginal Symptoms: sense of impending doom Other Symptoms: palpitations Treatments Prior to Arrival: none - Related Data Home Medications Medication Instructions Recorded Confirmed traZODone HCL 150 mg PO HS 04/10/16 04/12/23 Glucosam/Patrice-Msm1/C/Cesar/Bosw 1 tab PO DAILY 03/30/23 04/12/23 [Glucosamine-Chondroitin Tablet] Levothyroxine Sodium [Synthroid] 88 mcg PO DAILY 03/30/23 04/12/23 Multivitamin/Iron/Folic Acid 1 tab PO DAILY 03/30/23 04/12/23 [Centrum Adults Tablet] Ascorbic Acid [Vitamin C] 500 mg PO DAILY 04/12/23 04/12/23 Lactulose 20 gm PO BID 04/12/23 04/12/23 QUEtiapine FUMARATE [SEROquel] 300 mg PO HS 04/12/23 04/12/23 Previous Rx's Medication Instructions Recorded hydrOXYzine pamoate [Vistaril] 25 mg PO BID PRN #60 cap 02/08/18 lamoTRIgine [LaMICtal] 200 mg PO BID 30 Days #60 tablet 02/08/18 Ferrous Sulfate [Feosol] 325 mg PO BID #60 tab 04/15/23 Psyllium Husk 100% [Metamucil 6 gm PO BID packet 04/15/23 Packet] Tamsulosin [Flomax] 0.4 mg PO PC-BID cap 04/15/23 cefUROXime axetiL [Ceftin] 500 mg PO BID 1 Days #10 tab 04/15/23 Rivaroxaban [Xarelto Starter Pack] 0 mg PO DIRECTED 30 Days #1 04/17/23 packet oxyCODONE HCL [Oxaydo] 5 mg PO Q6H PRN #12 tab 04/17/23 Allergies Allergy/AdvReac Type Severity Reaction Status Date / Time No Known Allergies Allergy Verified 03/31/23 06:13 Review of Systems ROS Statement: Those systems with pertinent positive or pertinent negative responses have been documented in the HPI. ROS Other: All systems not noted in ROS Statement are negative. EKG Findings - EKG Comments: EKG Findings:: EKG is sinus 81 NH 170 QRS 106 QTC 434 Past Medical History Past Medical History: No Reported History Additional Past Medical History / Comment(s): IRON DEFICIENCY ANEMIA. History of Any Multi-Drug Resistant Organisms: None Reported Past Surgical History: Back Surgery, Bariatric Surgery, Orthopedic Surgery Additional Past Surgical History / Comment(s): right shoulder, left shoulder, gastric bypass Past Anesthesia/Blood Transfusion Reactions: No Reported Reaction Past Psychological History: Anxiety, Bipolar, Depression Past Alcohol Use History: Abuse Past Drug Use History: Prescription Drug Abuse - Past Family History Mother Family Medical History: No Reported History Sister(s) Family Medical History: Pulmonary Embolus General Exam Limitations: no limitations General appearance: alert, in no apparent distress, anxious Head exam: Present: atraumatic, normocephalic, normal inspection Eye exam: Present: normal appearance, PERRL, EOMI. Absent: scleral icterus, conjunctival injection, periorbital swelling ENT exam: Present: normal exam, mucous membranes moist Neck exam: Present: normal inspection. Absent: tenderness, meningismus, lymphadenopathy Respiratory exam: Present: normal lung sounds bilaterally. Absent: respiratory distress, wheezes, rales, rhonchi, stridor Cardiovascular Exam: Present: regular rate, normal rhythm, normal heart sounds. Absent: systolic murmur, diastolic murmur, rubs, gallop, clicks GI/Abdominal exam: Present: soft, normal bowel sounds. Absent: distended, tenderness, guarding, rebound, rigid Extremities exam: Present: normal inspection, full ROM, normal capillary refill. Absent: tenderness, pedal edema, joint swelling, calf tenderness Back exam: Present: normal inspection Neurological exam: Present: alert, oriented X3, CN II-XII intact Psychiatric exam: Present: normal affect, normal mood Skin exam: Present: warm, dry, intact, normal color. Absent: rash Course Vital Signs 04/12/23 04/12/23 04/12/23 12:16 12:30 13:00 Temperature 97.9 F Pulse Rate 84 85 81 Respiratory 18 18 Rate Blood Pressure 144/81 144/81 141/84 O2 Sat by Pulse 95 Oximetry 04/12/23 04/12/23 04/12/23 13:30 14:00 15:00 Temperature Pulse Rate 81 89 Respiratory 18 Rate Blood Pressure 139/81 135/76 158/91 O2 Sat by Pulse Oximetry 04/12/23 04/12/23 04/12/23 16:00 17:00 18:00 Temperature Pulse Rate 94 97 96 Respiratory 17 15 18 Rate Blood Pressure 164/95 144/80 152/84 O2 Sat by Pulse 95 Oximetry - Reevaluation(s) Reevaluation #1: 04/12/23 12:43 medical record is reviewed Reevaluation #2: 04/12/23 16:00 Patient symptoms are unchanged Reevaluation #3: 04/12/23 16:00 Informed results questions answered Studies Chest x-ray CT of the abdomen and pelvis and CT LS spine negative for significant acute disease Reevaluation #4: 04/12/23 13:09 Was pt. sent in by a medical professional or institution (, PA, CULINARY SPECIALIST, urgent care, hospital, or intermediate...) When possible be specific @ -no Did you speak to anyone other than the patient for history (EMS, parent, family, police, friend...)? What history was obtained from this source @ -no Did you review nursing and triage notes (agree or disagree)? Why? @ -agree Are old charts reviewed (outside hosp., previous admission, EMS record, old EKG, old radiological studies, urgent care reports/EKG's, intermediate records)? Report findings @ -yes Differential Diagnosis (chest pain, altered mental status, abdominal pain women, abdominal pain men, vaginal bleeding, weakness, fever, dyspnea, syncope, headache, dizziness, GI bleed, back pain, seizure, CVA, palpatations, mental health, musculoskeletal)? @ -prior EKG interpreted by me (3pts min.). @ -yes X-rays interpreted by me (1pt min.). @ -yesnegative for acute disease CT interpreted by me (1pt min.). @ -Yes negative for acute disease U/S interpreted by me (1pt. min.). @ -no What testing was considered but not performed or refused? (CT, X-rays, U/S, labs)? Why? @ -none What meds were considered but not given or refused? Why? @ -none Did you discuss the management of the patient with other professionals (professionals i.e. DrZheng, PA, CULINARY SPECIALIST, lab, RT, psych nurse, oncology social worker, select banker, teacher, loan officer assistant, child welfare caseworker)? Give summary @ -no Was smoking cessation discussed for >3mins.? @ -no Was critical care preformed (if so, how long)? @ -no Were there social determinants of health that impacted care today? How? (Homelessness, low income, unemployed, alcoholism, drug addiction, transportation, low edu. Level, literacy, decrease access to med. care, penitentiary, rehab)? @ -none Was there de-escalation of care discussed even if they declined (Discuss DNR or withdrawal of care, Hospice)? DNR status @ -no What co-morbidities impacted this encounter? (DM, HTN, Smoking, COPD, CAD, Cancer, CVA, ARF, Chemo, Hep., AIDS, mental health diagnosis, sleep apnea, morbid obesity)? @ -none Was patient admitted / discharged? Hospital course, mention meds given and route, prescriptions, significant lab abnormalities, going to OR and other pertinent info. @ - 68 female to the emergency department with chief complaint of chest pain. Patient presents today for evaluation of chest pain but is a poor historian, patient does have urinary tract infection will place on IV antibiotics, she has have significant anemia patient will be admitted for further evaluation of cause of anemia could be just postoperatively does have significant bruising left thigh Admitted Undiagnosed new problem with uncertain prognosis? @ -no Drug Therapy requiring intensive monitoring for toxicity (Heparin, Nitro, Insulin, Cardizem)? @ -no Were any procedures done? @ -no Diagnosis/symptom? @ -Anemia, UTI, altered mental status, back pain postoperative pain Acute, or Chronic, or Acute on Chronic? @ -Acute Uncomplicated (without systemic symptoms) or Complicated (systemic symptoms)? @ -Complicated Side effects of treatment? @ -no Exacerbation, Progression, or Severe Exacerbation? @ -exacerbation Poses a threat to life or bodily function? How? (Chest pain, USA, CT, pneumonia, PE, COPD, DKA, ARF, appy, cholecystitis, CVA, Diverticulitis, Homicidal, Suicidal, threat to staff... and all critical care pts) @ -yes significant postoperative complication with anemia Reevaluation #5: 04/12/23 12:43 Differential Chest Pain: Stable Angina, Unstable Angina, STEMI, NSTEMI Aortic Dissection, Pneumothorax, Musculoskeletal, Esophageal Spasm GERD, Cholecystitis, Pancreatitis, Zoster, this is not meant to be an all-inclusive list. Differential Weakness: Hypoglycemia, shock, sepsis, hyponatremia, anemia, infection, CT, ETOH, adverse medicine reaction, overdose, stroke, this is not meant to be an all-inclusive list. - Consultations Consultation #1: Spoke with Dr. ramos will admit this patient Chest Pain MDM - MDM 68 female to the emergency department with chief complaint of chest pain. Patient presents today for evaluation of chest pain but is a poor historian, patient does have urinary tract infection will place on IV antibiotics, she has have significant anemia patient will be admitted for further evaluation of cause of anemia could be just postoperatively does have significant bruising left thigh Disposition Clinical Impression: Atypical chest pain, Chest pain, Anemia, Altered mental status, UTI (urinary tract infection), Postoperative pain Disposition: ADMITTED IP TO THIS HOSP Is patient prescribed a controlled substance at d/c from ED?: No Time of Disposition: 16:00
[2023-04-12 13:15] LABS: Anisocytosis Slight; Basophils % (A) 0 %; Eosinophils # (A) 0.2 k/uL (0-0.7); Eosinophils % (A) 1 %; HCT 26.1 % (34.0-46.0); Lymphocytes # (A) 0.7 k/uL (1.0-4.8); Lymphocytes % (A) 5 %; MCH 30.3 pg (25.0-35.0); MCHC 33.3 g/dL (31.0-37.0); MCV 91.1 fL (80.0-100.0); Mean Platelet Volume 6.9; Monocytes # (A) 0.7 k/uL (0-1.0); Monocytes % (A) 5 %; Neutrophils # (A) 12.8 k/uL (1.3-7.7); Neutrophils % (A) 88 %; Platelet Count 368 k/uL (150-450); RBC 2.86 m/uL (3.80-5.40); RDW 19.4 % (11.5-15.5); WBC 14.5 k/uL (3.8-10.6)
[2023-04-12 13:21] LABS: HGB 8.7 gm/dL (11.4-16.0)
[2023-04-12 13:22] LABS: INR 1.1 (<1.2); Prothrombin Time 11.6 sec (10.0-12.5)
--- NOTE | 2023-04-12 13:41 | XR ---
EXAMINATION TYPE: XR chest 1V portable DATE OF EXAM: 04/12/2023 Comparison: 03/31/2023 Clinical History: 68-year-old female chest pain Findings: Heart borderline enlarged. Hyperinflation. Interstitial prominence appears unchanged. Some focal patc hy retrocardiac opacity similar to slightly improved. Midline skin juancarlos with thoracolumbar fusion hardware. Impression: COPD and borderline heart size. Some patchy retrocardiac atelectasis or infiltrate is similar to slig htly improved. Mild interstitial density is similar.
[2023-04-12 13:44] LABS: ALT 21 U/L (4-34); AST 24 U/L (14-36); African American GFR (CKD) >90 (>60 ml/min/1.73 sqM); Albumin 2.6 g/dL (3.5-5.0); Alkaline Phosphatase 127 U/L (38-126); Anion Gap 7 mmol/L; Blood Urea Nitrogen 7 mg/dL (7-17); Calcium 8.7 mg/dL (8.4-10.2); Carbon Dioxide 24 mmol/L (22-30); Chloride 98 mmol/L (98-107); Glucose 98 mg/dL (74-99); Lipase 40 U/L (23-300); Magnesium 2.1 mg/dL (1.6-2.3); Non-African American GFR(CKD) >90 (>60 ml/min/1.73 sqM); Potassium 3.7 mmol/L (3.5-5.1); Sodium 129 mmol/L (137-145)
[2023-04-12 13:50] LABS: NT-Pro-B-Type Natriuretic Pept 841 pg/mL
[2023-04-12 15:01] LABS: Appearance,Urine Turbid (Clear); Bacteria,Urine Rare /hpf; Bilirubin,Urine Negative (Negative); Blood,Urine Small (Negative); Color,Urine Yellow; Glucose,Urine (UA) Negative (Negative); Ketones,Urine 1+ (Negative); Leukocyte Esterase,Urine Large (Negative); Mucus,Urine Rare /hpf; Nitrite,Urine Negative (Negative); Protein,Urine 1+ (Negative); RBC,Urine 16 /hpf (0-5); Specific Gravity,Urine 1.012 (1.001-1.035); Urobilinogen,Urine <2.0 mg/dL (<2.0); WBC,Urine >182 /hpf (0-5)
--- NOTE | 2023-04-12 15:13 | CT ---
EXAMINATION TYPE: CT abdomen pelvis wo con, CT lumbar spine wo con DATE OF EXAM: 04/12/2023 COMPARISON: CT 03/31/2023 HISTORY: 68-year-old female left hip pain, lower abdominal pain with issues voiding, recent spine abhinav marj [address] DLP: 2131.4 (accession [id number]), DLP 2131.4 (accession [id number]) mGycm. Automated exposure contro l for dose reduction was used. TECHNIQUE: Contiguous axial scanning of the abdomen and pelvis without IV contrast. Coronal and sagit jean claude reconstructions performed. Axial, coronal, and sagittal reconstructions of the lumbar spine utili zing by the CT images. FINDINGS: Abdomen and pelvis: Heart borderline enlarged without pericardial effusion. Small pleural effusion with adjacent atelecta sis on both sides. Aneurysmal lower descending thoracic aorta to 3.3 cm. Mild generalized anasarca unchanged. Noncontrast appearance of the liver, gallbladder, adrenal glands, right kidney, spleen, pancreas show no gross abnormality. Limited by metal artifacts and patient motion. The lower pole of the left kidney in particular is motion degraded. No dilated small bowel or free air. There is mild pelvic ascites. Sigmoid diverticulosis. No pericolo teagan inflammatory change. Surgical material right lower quadrant probably relates to prior appendectom y. Large stool distending the right side of the colon up to 7.5 cm wide. Almendarez catheter in place, slightly high at the fundus of the bladder. Some intraluminal bladder air li gladis relates to the instrumentation. Mild circumferential bladder wall thickening. Uterus retroverted. Prominent here distending the rectum and 7.1 cm wide. Mild pelvic ascites. No evident pelvic adenopathy. Bones: Moderate degenerative change of the hips. Lumbar spine: There are postsurgical changes of T10-S1 bilateral pelvic posterior fusion changes. Vertebroplasty at T10, L1, L3 levels. There is a new inferior endplate fracture of T9 with approximately 20% vertebral body height loss and minimal retropulsion into the ventral spinal canal. Moderate right greater than left neural foramina l stenosis at this level. Mild paravertebral soft tissue swelling is present here. Posterior midline skin juancarlos related to the recent fusion. Collection underlies the skin juancarlos extending from T11 down through the S1 level spanning up to 20. 7 cm craniocaudal and measuring up to 2.1 cm AP and in some places, measuring up to 5.5 cm wide. There is hematoma along the upper left hip subcutaneous fat layer coursing obliquely measuring up to 15.8 cm long and 4.0 cm thick, refer to sagittal image 140 and axial image 48. IMPRESSION: Abdomen and pelvis: 1. Motion limited, noncontrast exam. 2. Almendarez catheter in place. There is circumferential bladder wall thickening that may be chronic for the patient. Correlate to exclude cystitis. 3. Mild anasarca with small bilateral pleural effusions. Correlate for any signs or symptoms of flui d overload state. 4. Sigmoid diverticulosis. No definite acute diverticulitis. However, note that there is large stool within the right hemicolon. The colon appears dilated up to 7.5 cm. Correlate for constipation. 5. Mild pelvic ascites, nonspecific. Lumbar spine: 1. Status post [id number] pelvic posterior fusion changes. There is a 20.7 cm long fluid collecti on underlying the posterior midline skin juancarlos within the subcutaneous fat measuring 5.5 cm wide in some places. Probably postoperative seroma. Correlate to exclude other postoperative fluid collectio n. 2. There is a new inferior endplate fracture of T9 just above the fusion with approximately 20% or t ubal body height loss and minimal retropulsion into the ventral spinal canal. Moderate right greater than left neuroforaminal stenosis at this level. 3. Subcutaneous soft tissue hematoma spanning 15.8 cm and measuring 4.0 cm thick along the upper lef t hip.
[2023-04-12] MEDS ORDERED: SENNOSIDES-DOCUSATE SODIUM 1 EACH TAB PO STA (15:33)
[2023-04-12] MEDS ORDERED: GLYCERIN ADULT SUPPOSITORY 1 EACH RECTAL STA (15:33)
[2023-04-12] MEDS ORDERED: polyethylene glycoL 3350 17 GM POWD.PACK PO STA (15:33)
[2023-04-12] MEDS ORDERED: MORPHINE SULFATE 4 MG/ML SYRINGE IVP STA (16:18)
[2023-04-12] MEDS ORDERED: NALOXONE 0.4 MG/ML 1 ML VIAL IV PRN (16:30)
[2023-04-12] MEDS ORDERED: ONDANSETRON 4 MG/2 ML VIAL IVP PRN (16:30)
[2023-04-12 17:00] LABS: Lactic Acid, Venous 0.6 mmol/L (0.7-2.0)
[2023-04-12] MEDS ORDERED: hydrOXYzine pamoate 25 MG CAP PO PRN (22:00)
[2023-04-12] MEDS: lamoTRIgine 100 MG TAB PO SCH (22:09)
[2023-04-12] MEDS: traZODone HCL 50 MG TAB PO SCH (22:10)
[2023-04-12] MEDS: QUEtiapine 100 MG TAB PO SCH (22:11)
[2023-04-13] MEDS: LEVOTHYROXINE 88 MCG TAB PO SCH (05:34)
--- NOTE | 2023-04-13 07:49 | P.CNOR ---
History of Present Illness - [facility] Consult date: 04/13/23 Requesting physician: Nando Smith Consult reason: other (known) History of present illness: Patient is a 68-year-old female who presented the hospital due to altered mental status. Orthopedics was consulted to do to status of knowing the patient. Patient was seen at bedside this morning lying semirecumbent position. Patient states she was at [facility] for rehab over the past couple weeks and surgery was performed on 03/31/[address] Flores for [id number] revision decompression and fusion. Patient says she did not like how she was treated at [facility] therefore she decided to come back in the hospital here at [facility]. Patient says she does note improvement in her back daily at [facility] and does not have any issues whatsoever with surgery was performed. Patient does not going to detail and doesn't appear to be somewhat confused during the encounter. Patient denies any saddle anesthesia/perineal numbness/tingling. Patient denies loss of bowel/bladder control. Patient denies lower extremity weakness. Patient states most the pain is localized to the back where she had surgery performed. Patient denies any other issues at this time. Patient denies chest pain, fever, shortness of breath, nausea, vomiting and J vision, loss of bowel/bladder control. Past Medical History Past Medical History: No Reported History Additional Past Medical History / Comment(s): IRON DEFICIENCY ANEMIA. History of Any Multi-Drug Resistant Organisms: None Reported Past Surgical History: Back Surgery, Bariatric Surgery, Orthopedic Surgery Additional Past Surgical History / Comment(s): right shoulder, left shoulder, gastric bypass Past Anesthesia/Blood Transfusion Reactions: No Reported Reaction Past Psychological History: Anxiety, Bipolar, Depression Smoking Status: Former smoker Past Alcohol Use History: Abuse Additional Past Alcohol Use History / Comment(s): Pt. drank 3 times a week heavily for 10 yrs. and quit 2 yrs. ago. Past Drug Use History: Prescription Drug Abuse - Past Family History Mother Family Medical History: No Reported History Sister(s) Family Medical History: Pulmonary Embolus Medications and Allergies Home Medications Medication Instructions Recorded Confirmed Type traZODone HCL 150 mg PO HS 04/10/16 04/12/23 History hydrOXYzine pamoate [Vistaril] 25 mg PO BID PRN #60 cap 02/08/18 04/12/23 Rx lamoTRIgine [LaMICtal] 200 mg PO BID 30 Days #60 tablet 02/08/18 04/12/23 Rx Glucosam/Patrice-Msm1/C/Cesar/Bosw 1 tab PO DAILY 03/30/23 04/12/23 History [Glucosamine-Chondroitin Tablet] Levothyroxine Sodium [Synthroid] 88 mcg PO DAILY 03/30/23 04/12/23 History Multivitamin/Iron/Folic Acid 1 tab PO DAILY 03/30/23 04/12/23 History [Centrum Adults Tablet] Ascorbic Acid [Vitamin C] 500 mg PO DAILY 04/12/23 04/12/23 History Cephalexin [Keflex] 500 mg PO TID 04/12/23 04/12/23 History Lactulose 20 gm PO BID 04/12/23 04/12/23 History QUEtiapine FUMARATE [SEROquel] 300 mg PO HS 04/12/23 04/12/23 History Sennosides/Docusate Sodium 2 tab PO DAILY PRN 04/12/23 04/12/23 History [Senna-S 8.6-50 mg Tablet] oxyCODONE HCL [OxyIR] 10 mg PO Q6H PRN 04/12/23 04/12/23 History Allergies Allergy/AdvReac Type Severity Reaction Status Date / Time No Known Allergies Allergy Verified 03/31/23 06:13 Physical Examination Incision appears to be clean, dry, intact on the spine. Gregor are well aligned and intact. Negative for any active drainage. Surgical dressings are in place over the incision. Negative for any open fractures, significant erythema or ecchymosis. Sensation is equal, symmetric, bilaterally intact throughout the upper and lower extremities. Patient has good range of motion throughout the bilateral upper and lower extremities on exam. She is able to sit up at the edge of the bed. 4/5 in all major groups in bilateral UE and LE. Radial pulse intact, 2+ bilaterally. Negative Homans bilaterally. Results - Labs Labs: Abnormal Lab Results - Last 24 Hours (Table) 04/12/23 04/12/23 04/12/23 Range/Units 12:58 12:58 14:31 WBC 14.5 H (3.8-10.6) k/uL RBC 2.86 L (3.80-5.40) m/uL Hgb 8.7 L D (11.4-16.0) gm/dL Hct 26.1 L (34.0-46.0) % RDW 19.4 H (11.5-15.5) % Neutrophils # 12.8 H (1.3-7.7) k/uL Lymphocytes # 0.7 L (1.0-4.8) k/uL Sodium 129 L (137-145) mmol/L Creatinine 0.31 L (0.52-1.04) mg/dL Plasma Lactic Acid Manuel (0.7-2.0) mmol/L Alkaline Phosphatase 127 H (38-126) U/L Creatine Kinase (30-135) U/L Total Protein 5.0 L (6.3-8.2) g/dL Albumin 2.6 L (3.5-5.0) g/dL Urine Appearance Turbid H (Clear) Urine Protein 1+ H (Negative) Urine Ketones 1+ H (Negative) Urine Blood Small H (Negative) Ur Leukocyte Esterase Large H (Negative) Urine RBC 16 H (0-5) /hpf Urine WBC >182 H (0-5) /hpf Urine WBC Clumps Many H (None) /hpf Urine Bacteria Rare H (None) /hpf Urine Mucus Rare H (None) /hpf 04/12/23 04/12/23 Range/Units 14:33 16:29 WBC (3.8-10.6) k/uL RBC (3.80-5.40) m/uL Hgb (11.4-16.0) gm/dL Hct (34.0-46.0) % RDW (11.5-15.5) % Neutrophils # (1.3-7.7) k/uL Lymphocytes # (1.0-4.8) k/uL Sodium (137-145) mmol/L Creatinine (0.52-1.04) mg/dL Plasma Lactic Acid Manuel 0.6 L (0.7-2.0) mmol/L Alkaline Phosphatase (38-126) U/L Creatine Kinase 140 H (30-135) U/L Total Protein (6.3-8.2) g/dL Albumin (3.5-5.0) g/dL Urine Appearance (Clear) Urine Protein (Negative) Urine Ketones (Negative) Urine Blood (Negative) Ur Leukocyte Esterase (Negative) Urine RBC (0-5) /hpf Urine WBC (0-5) /hpf Urine WBC Clumps (None) /hpf Urine Bacteria (None) /hpf Urine Mucus (None) /hpf H & H 04/12/23 Range/Units 12:58 Hgb 8.7 L D (11.4-16.0) gm/dL Hct 26.1 L (34.0-46.0) % Coagulation 04/12/23 Range/Units 12:58 INR 1.1 (<1.2) Result Diagrams: 04/12/23 12:58 04/12/23 12:58 Assessment and Plan Assessment: 1. Recent history of revision [id number] decompression fusion Plan: 1. Recent history of [id number] decompression and fusion - patient stable at bedside this morning. Computed tomography scan of lumbar spine does show hardw are present and intact throughout the spine from T10 to pelvis. Recommend PT/OT daily and pain medication as needed. Plan for rehab placement. Orthopedics will be available as needed to see patient. Appreciate medical and other specialty recommendations. No emergent/urgent orthopedic intervention at this time. 2. Appreciate medical management 3. Pain management - oxycodone; Vistaril 4. DVT prophylaxis - mechanical 5. GI prophylaxis - Protonix 6. PT/OT - weightbearing as tolerated with walker and assistance 7. Encourage incentive spirometer use 8. Appreciate consult Time with Patient: Less than 30
[2023-04-13] MEDS: MULTIVITAMINS, THERA 1 EACH TAB PO SCH (08:23)
[2023-04-13] MEDS: LACTULOSE 20 GM/30 ML CUP PO SCH ×2 (08:23→21:04)
[2023-04-13] MEDS: lamoTRIgine 100 MG TAB PO SCH ×2 (08:23→21:03)
[2023-04-13] MEDS: ASCORBIC ACID 500 MG TAB PO SCH (08:23)
[2023-04-13] MEDS: PANTOPRAZOLE 40 MG/10 ML VIAL IV SCH (08:23)
[2023-04-13] MEDS: MORPHINE SULFATE 4 MG/ML SYRINGE IV PRN ×2 (08:24→15:05)
[2023-04-13 08:59] LABS: Basophils # (A) 0.05 X 10*3/uL (0.00-0.10); Basophils % (A) 0.4 %; Eosinophils # (A) 0.26 X 10*3/uL (0.04-0.35); HCT 26.4 % (37.2-46.3); HGB 8.4 g/dL (12.0-15.0); Lymphocytes # (A) 0.72 X 10*3/uL (0.90-5.00); Lymphocytes % (A) 5.5 %; MCHC 31.8 g/dL (32.0-37.0); Mean Platelet Volume 9.1 FL (9.5-12.2); Monocytes % (A) 8.4 %; NRBC Per 100 WBC 0 X 10*3/uL (0.00-0.01); Neutrophils # (A) 10.63 X 10*3/uL (1.80-7.70); Neutrophils % (A) 81.2 %; Platelet Count 340 X 10*3/uL (140-440); RDW 21.2 % (11.5-14.5); WBC 13.09 X 10*3/uL (4.50-10.00)
[2023-04-13] MEDS ORDERED: NON FORMULARY DRUG (Glucosam/Chon-Msm1/C/Mang/Bosw [Glucosamine-Chondroitin Tablet] 1 EACH PO SCH (09:00)
[2023-04-13 09:15] LABS: ALT 20 U/L (8-44); AST 16 U/L (13-35); Albumin 2.8 g/dL (3.8-4.9); Albumin/Globulin Ratio 1.75 Ratio (1.60-3.17); Alkaline Phosphatase 126 U/L (41-126); Blood Urea Nitrogen 5.4 mg/dL (9.0-27.0); Calcium 8.4 mg/dL (8.7-10.3); Carbon Dioxide 21.7 mmol/L (21.6-31.8); Chloride 103 mmol/L (96-109); Globulin 1.6 g/dL (1.6-3.3); Glucose 89 mg/dL (70-110); Phosphorus 2.4 mg/dL (2.4-5.1); Sodium 134 mmol/L (135-145); Total Bilirubin 0.6 mg/dL (0.3-1.2); Total Protein 4.4 g/dL (6.2-8.2)
--- NOTE | 2023-04-13 13:18 | P.CRDCN ---
History of Present Illness History of present illness: This is Dr. Lujan dictating a consult on this patient The patient was interviewed and examined IMPRESSION / ASSESSMENT: Recent back surgery Immobilization Chest discomfort and palpitations PLAN: VQ scan Continue current medications HPI 68-year-old female who is not happy at local rehab facility and wanted to come to the hospital. She started expressing chest discomfort on account of the stress When I saw her she'llsee any chest pain She was not short of breath like she had no dizziness Sometime she developed palpitations On telemetry no arrhythmias. Twelve-lead EKG showed sinus rhythm normal NM ([address] segment abnormalities other than T-wave inversions in V1 and V2 Follow-up 20 EKG shows 196 beats a minute normal NM , left axis deviation normal ST segments T-wave inversions in V1 and V2 remained ROS: No fever chills or rigors, no cough, phlegm or expectoration, no nausea, vomiting or diarrhea, no hematuria, dysuria, no musculoskeletal complaints, no strokes or seizures, no skin lesions. EXAMINATION: Normal blood pressure Normal heart sounds Normal breath sounds Lying flat in bed and looks comfortable REVIEW OF LABS, ECG & MEDICAL DATA White count 14,000, hemoglobin 8.4 Platelet count and 40,000 Initially sodium was 129 mouth 134 Normal troponin Past Medical History Past Medical History: No Reported History Additional Past Medical History / Comment(s): IRON DEFICIENCY ANEMIA. History of Any Multi-Drug Resistant Organisms: None Reported Past Surgical History: Back Surgery, Bariatric Surgery, Orthopedic Surgery Additional Past Surgical History / Comment(s): right shoulder, left shoulder, gastric bypass Past Anesthesia/Blood Transfusion Reactions: No Reported Reaction Past Psychological History: Anxiety, Bipolar, Depression Smoking Status: Former smoker Past Alcohol Use History: Abuse Additional Past Alcohol Use History / Comment(s): Pt. drank 3 times a week heavily for 10 yrs. and quit 2 yrs. ago. Past Drug Use History: Prescription Drug Abuse - Past Family History Mother Family Medical History: No Reported History Sister(s) Family Medical History: Pulmonary Embolus Medications and Allergies Home Medications Medication Instructions Recorded Confirmed Type traZODone HCL 150 mg PO HS 04/10/16 04/12/23 History hydrOXYzine pamoate [Vistaril] 25 mg PO BID PRN #60 cap 02/08/18 04/12/23 Rx lamoTRIgine [LaMICtal] 200 mg PO BID 30 Days #60 tablet 02/08/18 04/12/23 Rx Glucosam/Patrice-Msm1/C/Cesar/Bosw 1 tab PO DAILY 03/30/23 04/12/23 History [Glucosamine-Chondroitin Tablet] Levothyroxine Sodium [Synthroid] 88 mcg PO DAILY 03/30/23 04/12/23 History Multivitamin/Iron/Folic Acid 1 tab PO DAILY 03/30/23 04/12/23 History [Centrum Adults Tablet] Ascorbic Acid [Vitamin C] 500 mg PO DAILY 04/12/23 04/12/23 History Cephalexin [Keflex] 500 mg PO TID 04/12/23 04/12/23 History Lactulose 20 gm PO BID 04/12/23 04/12/23 History QUEtiapine FUMARATE [SEROquel] 300 mg PO HS 04/12/23 04/12/23 History Sennosides/Docusate Sodium 2 tab PO DAILY PRN 04/12/23 04/12/23 History [Senna-S 8.6-50 mg Tablet] oxyCODONE HCL [OxyIR] 10 mg PO Q6H PRN 04/12/23 04/12/23 History Allergies Allergy/AdvReac Type Severity Reaction Status Date / Time No Known Allergies Allergy Verified 03/31/23 06:13 Physical Exam Vitals: Vital Signs Temp Pulse Pulse Resp BP BP Pulse Ox 04/13/23 07:00 98.6 F 102 H 18 123/70 95 04/13/23 02:56 98.0 F 94 16 100/60 94 L 04/12/23 22:45 98.6 F 100 18 160/93 98 04/12/23 18:00 96 18 152/84 95 04/12/23 17:00 97 15 144/80 04/12/23 16:00 94 17 164/95 04/12/23 15:00 89 18 158/91 04/12/23 14:00 135/76 04/12/23 13:30 81 139/81 Intake and Output 04/12/23 04/13/23 04/13/23 22:59 06:59 14:59 Intake Total 240 Output Total 1775 631 Balance -1775 -375 240 Intake: Oral 240 Output: Urine 9908 964 Other: Voiding Method Indwelling Catheter Indwelling Catheter Weight 82.554 kg Results 04/13/23 05:23 04/13/23 05:23 Cardiac Enzymes 04/12/23 04/12/23 04/13/23 Range/Units 12:58 12: 05:23 AST 24 16 (14-36) U/L Troponin I 0.014 (0.000-0.034) ng/mL Coagulation 04/12/23 Range/Units 12:58 PT 11.6 (10.0-12.5) sec APTT 24.0 (22.0-30.0) sec CBC 04/12/23 04/13/23 Range/Units 12:58 05:23 WBC 14.5 H 13.09 H (3.8-10.6) k/uL RBC 2.86 L 2.90 L (3.80-5.40) m/uL Hgb 8.7 L D 8.4 L (11.4-16.0) gm/dL Hct 26.1 L 26.4 L (34.0-46.0) % Plt Count 368 340 (150-450) k/uL Comprehensive Metabolic Panel 04/12/23 04/13/23 Range/Units 12:58 05:23 Sodium 129 L 134 L (137-145) mmol/L Potassium 3.7 4.0 (3.5-5.1) mmol/L Chloride 98 103 (98-107) mmol/L Carbon Dioxide 24 21.7 (22-30) mmol/L BUN 7 5.4 L (7-17) mg/dL Creatinine 0.31 L 0.3 L (0.52-1.04) mg/dL Glucose 98 89 (74-99) mg/dL Calcium 8.7 8.4 L (8.4-10.2) mg/dL AST 24 16 (14-36) U/L ALT 21 20 (4-34) U/L Alkaline Phosphatase 127 H 126 (38-126) U/L Total Protein 5.0 L 4.4 L (6.3-8.2) g/dL Albumin 2.6 L 2.8 L (3.5-5.0) g/dL Current Medications Generic Name Dose Route Start Last Admin Trade Name Freq PRN Reason Stop Dose Admin Ascorbic Acid 500 mg 04/13/23 09:00 12/25/23 08:23 Ascorbic Acid 500 Mg Tab PO 500 mg DAILY BRYN Administration Hydroxyzine Pamoate 25 mg 04/12/23 22:00 Hydroxyzine Pamoate 25 Mg Cap PO BID PRN Anxiety Lactulose 20 gm 04/13/23 09:00 04/13/23 08:23 Lactulose 20 Gm/30 Ml Cup PO Not Given BID BRYN Lamotrigine 200 mg 04/12/23 22:00 04/13/23 08:23 Lamotrigine 100 Mg Tab PO 200 mg BID BRYN Administration Levothyroxine Sodium 88 mcg 04/13/23 06:30 04/13/23 05:34 Levothyroxine 88 Mcg Tab PO 88 mcg DAILY@0630 BRYN Administration Morphine Sulfate 4 mg 04/12/23 16:30 04/13/23 08:24 Morphine Sulfate 4 Mg/Ml Syringe IV 4 mg Q4HR PRN Administration Severe Pain (Scale 7 to 10) Multivitamins 1 each 04/13/23 09:00 04/13/23 08:23 Multivitamins, Thera 1 Each Tab PO 1 each DAILY BRYN Administration Naloxone HCl 0.2 mg 04/12/23 16:30 Naloxone 0.4 Mg/Ml 1 Ml Vial IV Q2M PRN Opioid Reversal Ondansetron HCl 4 mg 04/12/23 16:30 Ondansetron 4 Mg/2 Ml Vial IVP Q8HR PRN Nausea And Vomiting Oxycodone HCl 10 mg 04/12/23 22:00 04/13/23 12:16 Oxycodone Hcl 5 Mg Tab PO 10 mg Q6H PRN Administration Pain Pantoprazole Sodium 40 mg 04/13/23 09:00 04/13/23 08:23 Pantoprazole 40 Mg/10 Ml Vial IV 40 mg DAILY BRYN Administration Quetiapine Fumarate 300 mg 04/12/23 22:00 04/12/23 22:11 Quetiapine 100 Mg Tab PO 300 mg HS BRYN Administration Senna/Docusate Sodium 2 each 04/12/23 22:00 Sennosides-Docusate Sodium 1 Each Tab PO DAILY PRN Constipation Trazodone HCl 150 mg 04/12/23 22:00 04/12/23 22:10 Trazodone Hcl 50 Mg Tab PO 150 mg HS BRYN Administration Intake and Output 04/12/23 04/13/23 04/13/23 22:59 06:59 14:59 Intake Total 240 Output Total 9751 807 Balance -3395 -904 240 Intake: Oral 240 Output: Urine 2350 451 Other: Voiding Method Indwelling Catheter Indwelling Catheter Weight 82.554 kg 04/13/23 05:23 04/13/23 05:23
[2023-04-13] MEDS: SENNOSIDES-DOCUSATE SODIUM 1 EACH TAB PO PRN (15:06)
--- NOTE | 2023-04-13 15:35 | P.HPIM ---
History of Present Illness H&P Date: 04/13/23 Chief Complaint: High blood pressure This is a pleasant 68-year-old patient, follows with Dr. Malik Beyer. Patient on 03/31/2023 underwent lower back surgery by Dr.) Flores. Rather extensive surgery. Following that patient was discharged to [facility] for rehab. Family at the bedside. Does state that she took a fall while she was here and also possibly at the rehab place. Has a bruising on the left side in the [place] is actually improving. Patient has been constipated because of pain medications and does have significant pain in the surgical site. Patient has been using a wheelchair and working with physical therapy. Both the family patient has been occasionally getting confused. Patient also been complaining of urine symptoms including dysuria. Found to have UTI in the ER started on IV ceftriaxone. Patient's appetite is fair. Has a bowel movement about 2 or 3 times a week. Does take linzess. History was discussed with the family at the bedside. For the input. Review of systems: GEN.: No fever no chills EYES: None HEENT: None NECK: None RESPIRATORY: None CARDIOVASCULAR: None GASTROINTESTINAL: Constipation GENITOURINARY: As above MUSCULOSKELETAL: Also has pain at other joints LYMPHATICS: None HEMATOLOGICAL: None PSYCHIATRY: Does get confused at times NEUROLOGICAL: None Past medical history to include: Iron deficiency anemia, gastric bypass, bipolar disorder, osteoarthritis, constipation possibly from narcotics Social history: Currently in rehab. Prior history of prescription drug abuse. [place]. Has been clean since 2014. Physical examination: VITAL SIGNS: 98.6, 102, 18, 123/70, 95% room air] GENERAL: BMI 27.7, reclining in bed awake comfortable. EYES: Pupils equal. Conjunctiva normal. HEENT: External appearance of nose and ears normal, oral cavity grossly normal. NECK: JVD not raised; masses not palpable. HEART: First and second heart sounds are normal; no edema. LUNGS: Respiratory rate normal; clear to auscultation. ABDOMEN: Soft, nontender, liver spleen not palpable, no masses palpable. PSYCH: Alert and oriented x3; mood and affect normal. Does get confused sometimes during history giving. MUSCULOSKELETAL:No Clubbing/cyanosis;muscles-grossly intact. OA. Dressing over lumbar spine. 80 of bruising around the left buttock and adjoining areas. NEUROLOGICAL: Cranial nerves grossly intact; no facial asymmetry, power and sensation grossly intact. LYMPHATICS: No lymph nodes palpable in the axilla and neck INVESTIGATIONS, reviewed in the clinical context: 04/13/2023: White count 13.0 hemoglobin 8.4 platelets 340 potassium 4 creatinine 0.3 albumin 2.8 UA positive for leukoesterase, WBC Chest x-ray film personally reviewed by me-some hyperinflation EKG tracing personally reviewed by me-normal sinus rhythm Lumbar spine CT: Sigmoid diverticulosis. 20.7 cm long fluid collection underlying the posterior midline skin pupils. New inferior endplate fracture of T9 just above the fusion. Subcutaneous soft tissue hematoma spanning 15.8 cm midodrine for centimeter thick along the upper left hip. Previous labs: Hemoglobin 9.1 on April 06 and 13 on April 01 Assessment and plan: -Hematoma along the lumbar spine incision site. Patient has bruising the corresponding part outside. No bruising noted does appear to be healing. Probably best managed conservatively. Dr. Flores has been consulted for follow with him. -Acute postprocedure blood loss anemia secondary to as expected from surgery and secondary to hematoma. Hemodynamically stable. Follow H&H. -Acute gait dysfunction following surgery. Patient getting rehab. Consult PTOT. -Acute delirium. Episodes of confusion patient been having at [facility]. Possibly also from narcotics. Also takes medications for bipolar. Follow closely. Discussed with family. -Constipation multifactorial including from narcotics and decreased mobility. Add Metamucil. -Bipolar disorder Trazodone. Lamictal. Seroquel. -Hypothyroid Synthroid 88 g a day -Acute UTI with cystitis. DC Almendarez catheter later treated and was placed in the ER. External catheter/diaper. IV ceftriaxone. Discussed with patient and family at the bedside. Questions answered. Dr. Flores consulted. DC morphine. That was started in the ER. DC Almendarez catheter. CIARAN stockings for DVT prophylaxis. Given the complexity and severity of patient's condition expect the patient to be in the hospital at least for 2 overnights Past Medical History Past Medical History: No Reported History Additional Past Medical History / Comment(s): IRON DEFICIENCY ANEMIA. History of Any Multi-Drug Resistant Organisms: None Reported Past Surgical History: Back Surgery, Bariatric Surgery, Orthopedic Surgery Additional Past Surgical History / Comment(s): right shoulder, left shoulder, gastric bypass Past Anesthesia/Blood Transfusion Reactions: No Reported Reaction Past Psychological History: Anxiety, Bipolar, Depression Smoking Status: Former smoker Past Alcohol Use History: Abuse Additional Past Alcohol Use History / Comment(s): Pt. drank 3 times a week heavily for 10 yrs. and quit 2 yrs. ago. Past Drug Use History: Prescription Drug Abuse - Past Family History Mother Family Medical History: No Reported History Sister(s) Family Medical History: Pulmonary Embolus Medications and Allergies Home Medications Medication Instructions Recorded Confirmed Type traZODone HCL 150 mg PO HS 04/10/16 04/12/23 History hydrOXYzine pamoate [Vistaril] 25 mg PO BID PRN #60 cap 02/08/18 04/12/23 Rx lamoTRIgine [LaMICtal] 200 mg PO BID 30 Days #60 tablet 02/08/18 04/12/23 Rx Glucosam/Patrice-Msm1/C/Cesar/Bosw 1 tab PO DAILY 03/30/23 04/12/23 History [Glucosamine-Chondroitin Tablet] Levothyroxine Sodium [Synthroid] 88 mcg PO DAILY 03/30/23 04/12/23 History Multivitamin/Iron/Folic Acid 1 tab PO DAILY 03/30/23 04/12/23 History [Centrum Adults Tablet] Ascorbic Acid [Vitamin C] 500 mg PO DAILY 04/12/23 04/12/23 History Cephalexin [Keflex] 500 mg PO TID 04/12/23 04/12/23 History Lactulose 20 gm PO BID 04/12/23 04/12/23 History QUEtiapine FUMARATE [SEROquel] 300 mg PO HS 04/12/23 04/12/23 History Sennosides/Docusate Sodium 2 tab PO DAILY PRN 04/12/23 04/12/23 History [Senna-S 8.6-50 mg Tablet] oxyCODONE HCL [OxyIR] 10 mg PO Q6H PRN 04/12/23 04/12/23 History Allergies Allergy/AdvReac Type Severity Reaction Status Date / Time No Known Allergies Allergy Verified 03/31/23 06:13 Physical Exam Vitals: Vital Signs Temp Pulse Pulse Resp BP BP Pulse Ox 04/13/23 07:00 98.6 F 102 H 18 123/70 95 04/13/23 02:56 98.0 F 94 16 100/60 94 L 04/12/23 22:45 98.6 F 100 18 160/93 98 04/12/23 18:00 96 18 152/84 95 04/12/23 17:00 97 15 144/80 04/12/23 16:00 94 17 164/95 04/12/23 15:00 89 18 158/91 04/12/23 14:00 135/76 04/12/23 13:30 81 139/81 04/12/23 13:00 81 18 141/84 Intake and Output 04/12/23 04/13/23 04/13/23 22:59 06:59 14:59 Intake Total 240 Output Total 1770 084 Balance -1775 -375 240 Intake: Oral 240 Output: Urine 2648 571 Other: Voiding Method Indwelling Catheter Indwelling Catheter Weight 82.554 kg Results CBC & Chem 7: 04/13/23 05:23 04/13/23 05:23 Labs: Abnormal Lab Results - Last 24 Hours (Table) 04/12/23 04/12/23 04/12/23 Range/Units 12:58 12:58 14:31 WBC 14.5 H (3.8-10.6) k/uL RBC 2.86 L (3.80-5.40) m/uL Hgb 8.7 L D (11.4-16.0) gm/dL Hct 26.1 L (34.0-46.0) % MCHC (32.0-37.0) g/dL RDW 19.4 H (11.5-15.5) % MPV (9.5-12.2) FL Immature Gran # (0.00-0.04) X 10*3/uL Neutrophils # 12.8 H (1.3-7.7) k/uL Lymphocytes # 0.7 L (1.0-4.8) k/uL Monocytes # (0.20-1.00) X 10*3/uL Sodium 129 L (137-145) mmol/L BUN (9.0-27.0) mg/dL Creatinine 0.31 L (0.52-1.04) mg/dL Plasma Lactic Acid Manuel (0.7-2.0) mmol/L Calcium (8.7-10.3) mg/dL Alkaline Phosphatase 127 H (38-126) U/L Creatine Kinase (30-135) U/L Total Protein 5.0 L (6.3-8.2) g/dL Albumin 2.6 L (3.5-5.0) g/dL Urine Appearance Turbid H (Clear) Urine Protein 1+ H (Negative) Urine Ketones 1+ H (Negative) Urine Blood Small H (Negative) Ur Leukocyte Esterase Large H (Negative) Urine RBC 16 H (0-5) /hpf Urine WBC >182 H (0-5) /hpf Urine WBC Clumps Many H (None) /hpf Urine Bacteria Rare H (None) /hpf Urine Mucus Rare H (None) /hpf 04/12/23 04/12/23 04/13/23 Range/Units 14:33 16:29 05:23 WBC 13.09 H (3.8-10.6) k/uL RBC 2.90 L (3.80-5.40) m/uL Hgb 8.4 L (11.4-16.0) gm/dL Hct 26.4 L (34.0-46.0) % MCHC 31.8 L (32.0-37.0) g/dL RDW 21.2 H (11.5-15.5) % MPV 9.1 L (9.5-12.2) FL Immature Gran # 0.33 H (0.00-0.04) X 10*3/uL Neutrophils # 10.63 H (1.3-7.7) k/uL Lymphocytes # 0.72 L (1.0-4.8) k/uL Monocytes # 1.10 H (0.20-1.00) X 10*3/uL Sodium (137-145) mmol/L BUN (9.0-27.0) mg/dL Creatinine (0.52-1.04) mg/dL Plasma Lactic Acid Manuel 0.6 L (0.7-2.0) mmol/L Calcium (8.7-10.3) mg/dL Alkaline Phosphatase (38-126) U/L Creatine Kinase 140 H (30-135) U/L Total Protein (6.3-8.2) g/dL Albumin (3.5-5.0) g/dL Urine Appearance (Clear) Urine Protein (Negative) Urine Ketones (Negative) Urine Blood (Negative) Ur Leukocyte Esterase (Negative) Urine RBC (0-5) /hpf Urine WBC (0-5) /hpf Urine WBC Clumps (None) /hpf Urine Bacteria (None) /hpf Urine Mucus (None) /hpf 04/13/23 Range/Units 05:23 WBC (3.8-10.6) k/uL RBC (3.80-5.40) m/uL Hgb (11.4-16.0) gm/dL Hct (34.0-46.0) % MCHC (32.0-37.0) g/dL RDW (11.5-15.5) % MPV (9.5-12.2) FL Immature Gran # (0.00-0.04) X 10*3/uL Neutrophils # (1.3-7.7) k/uL Lymphocytes # (1.0-4.8) k/uL Monocytes # (0.20-1.00) X 10*3/uL Sodium 134 L (137-145) mmol/L BUN 5.4 L (9.0-27.0) mg/dL Creatinine 0.3 L (0.52-1.04) mg/dL Plasma Lactic Acid Manuel (0.7-2.0) mmol/L Calcium 8.4 L (8.7-10.3) mg/dL Alkaline Phosphatase (38-126) U/L Creatine Kinase (30-135) U/L Total Protein 4.4 L (6.3-8.2) g/dL Albumin 2.8 L (3.5-5.0) g/dL Urine Appearance (Clear) Urine Protein (Negative) Urine Ketones (Negative) Urine Blood (Negative) Ur Leukocyte Esterase (Negative) Urine RBC (0-5) /hpf Urine WBC (0-5) /hpf Urine WBC Clumps (None) /hpf Urine Bacteria (None) /hpf Urine Mucus (None) /hpf
[2023-04-13] MEDS: QUEtiapine 100 MG TAB PO SCH (21:03)
[2023-04-13] MEDS: traZODone HCL 50 MG TAB PO SCH (21:03)
[2023-04-13] MEDS: PSYLLIUM HUSK 100% 6 GM PACKET PO SCH (21:03)
[2023-04-14] MEDS: LEVOTHYROXINE 88 MCG TAB PO SCH (05:48)
[2023-04-14] MEDS: ASCORBIC ACID 500 MG TAB PO SCH (09:15)
[2023-04-14] MEDS: MULTIVITAMINS, THERA 1 EACH TAB PO SCH (09:15)
[2023-04-14] MEDS: lamoTRIgine 100 MG TAB PO SCH ×2 (09:15→21:28)
[2023-04-14] MEDS: PSYLLIUM HUSK 100% 6 GM PACKET PO SCH ×2 (09:16→21:29)
[2023-04-14] MEDS: LACTULOSE 20 GM/30 ML CUP PO SCH ×3 (09:16→21:32)
[2023-04-14] MEDS: PANTOPRAZOLE 40 MG/10 ML VIAL IV SCH (09:16)
--- NOTE | 2023-04-14 10:46 | P.PN ---
Subjective HPI 68-year-old female who is not happy at local rehab facility and wanted to come to the hospital. She started expressing chest discomfort on account of the stress When I saw her she'llsee any chest pain She was not short of breath like she had no dizziness Sometime she developed palpitations 04/14 Patient seen and examined. Patient admits she has not been having any chest discomfort recently decided last week. She denies any palpitations currently. She has been normal sinus rhythm on telemetry. Evaluating other rehab options. Mention a VQ scan yesterday however was not performed. PHYSICAL EXAMINATION Vital signs reviewed. CONSTITUTIONAL: No apparent distress. HEENT: Head is normocephalic. Pupils are equal, round. Sclerae anicteric. Mucous membranes of the mouth are moist. No JVD. No carotid bruit. CHEST EXAMINATION: Lungs are clear to auscultation. No chest wall tenderness is noted on palpation or with deep breathing. HEART EXAMINATION: Regular rate and rhythm. S1, S2 heard. No murmurs, gallops or rub. ABDOMEN: Soft, nontender. Positive bowel sounds. EXTREMITIES: 2+ peripheral pulses, no lower extremity edema and no calf tenderness. NEUROLOGIC EXAMINATION: Patient is awake, alert and oriented x3. ASSESSMENT 1. Atypical chest pain 2. Recent orthopedic surgery with debility 3. Anemia 4. Palpitations 5. Anxiety PLAN Patient's chest pain appears atypical and troponins normal. For completeness sake we will check a d-dimer and if abnormal check CTA or VQ scan. Otherwise no further cardiac workup as an inpatient and patient may be discharged from a cardiology standpoint if dimer/ CTA normal. Objective - Vital Signs Vital signs: Vital Signs Temp 98.4 F 04/14/23 08:00 Pulse 80 04/14/23 08:00 Resp 15 04/14/23 08:00 BP 130/74 04/14/23 08:00 Pulse Ox 94 L 04/14/23 08:00 FiO2 Intake & Output 04/13/23 04/14/23 04/14/23 18:59 06:59 18:59 Intake Total 480 240 Output Total 500 1875 Balance -20 240 Intake: Oral 480 240 Output: Urine 500 1875 Straight 575 Uretheral (Almendarez) 725 Other: Voiding Method Indwelling Catheter Bedside Commode Bedside Commode # Voids 0 0 - Labs CBC & Chem 7: 04/13/23 05:23 04/13/23 05:23
[2023-04-14] MEDS ORDERED: TAMSULOSIN 0.4 MG CAP.ER.24H PO SCH (11:00)
--- NOTE | 2023-04-14 14:31 | P.PN ---
Subjective Progress Note Date: 04/14/23 Principal diagnosis: Back pain secondary to recent history of revision [id number] decompression fusion Patient was seen at bedside this morning sitting up in chair with legs elevated. Patient says she had just finished working with therapy walked around the room using walker. Nursing staff was present during encounter and mentioned that since patient got up there has been an increase in drainage from incision and surgical dressings are saturated. Patient mentions she has not had any changes since yesterday. She is still having some generalized low back pain. Patient says she is not having numbness/tingling down the lower extremities. Patient says she does have an appointment in office with Dr. Flores tomorrow for first follow-up from revision [id number] decompression fusion surgery that was performed on 03/31/2023. Patient denies chest pain, fever, shortness breath, nausea, vomiting, change in vision, loss of bowel/bladder control. Objective - Vital Signs Vital signs: Vital Signs Temp 98.4 F 04/14/23 08:00 Pulse 80 04/14/23 08:00 Resp 15 04/14/23 08:00 BP 130/74 04/14/23 08:00 Pulse Ox 94 L 04/14/23 08:00 FiO2 Intake & Output 04/13/23 04/14/23 04/14/23 18:59 06:59 18:59 Intake Total 480 240 Output Total 500 1875 1197 Balance -20 -1875 -957 Intake: Oral 480 240 Output: Urine 500 1875 550 Straight 575 Uretheral (Almendarez) 725 Post Void Residual 647 Other: Voiding Method Indwelling Catheter Bedside Commode Bedside Commode # Voids 0 0 - Exam optifoam dressing appears saturated. [place] are well aligned and intact. Negative for any active drainage. Dressing change at bedside this morning. Telfa ABDs pads and foam tape placed over incision. [place] are well aligned and intact. There does appear to be large area of ecchymosis near the left lower back and left hip. Negative for any open fractures, significant erythema or ecchymosis. Sensation is equal, symmetric, bilaterally intact throughout the upper and lower extremities. Patient has good range of motion throughout the bilateral upper and lower extremities on exam. She is able to sit up at the edge of the bed. 4/5 in all major groups in bilateral UE and LE. Radial pulse intact, 2+ bilaterally. Negative Homans bilaterally. - Labs CBC & Chem 7: 04/13/23 05:23 04/13/23 05:23 Assessment and Plan Assessment: 1. Recent history of revision [id number] decompression fusion Plan: 1. Recent history of [id number] decompression and fusion - patient stable at bedside this morning. Computed tomography scan of lumbar spine does show hardware present and intact throughout the spine from T10 to pelvis. Recommend PT/OT daily and pain medication as needed. Plan for rehab placement. Orthopedics will be available as needed to see patient. Appreciate medical and other specialty recommendations. No emergent/urgent orthopedic intervention at this time. 2. Appreciate medical management 3. Pain management - oxycodone; Vistaril 4. DVT prophylaxis - mechanical 5. GI prophylaxis - Protonix 6. PT/OT - weightbearing as tolerated with walker and assistance 7. Encourage incentive spirometer use 8. Appreciate consult Time with Patient: Less than 30
[2023-04-14] MEDS: TAMSULOSIN 0.4 MG CAP.ER.24H PO SCH (17:23)
--- NOTE | 2023-04-14 20:33 | P.PN ---
Progress Note - Text Progress Note Date: 04/14/23 Chief Complaint: High blood pressure This is a pleasant 68-year-old patient, follows with Dr. Malik Beyer. Patient on 03/31/2023 underwent lower back surgery by Dr.) Flores. Rather extensive surgery. Following that patient was discharged to [facility] for rehab. Family at the bedside. Does state that she took a fall while she was here and also possibly at the rehab place. Has a bruising on the left side in the [place] is actually improving. Patient has been constipated because of pain medications and does have significant pain in the surgical site. Patient has been using a wheelchair and working with physical therapy. Both the family patient has been occasionally getting confused. Patient also been complaining of urine symptoms including dysuria. Found to have UTI in the ER started on IV ceftriaxone. Patient's appetite is fair. Has a bowel movement about 2 or 3 times a week. Does take linzess. History was discussed with the family at the bedside. For the input. 04/14/2023: Patient continues 10 urinary retention. 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 Flomax been increased to 0.4 mg twice a day. On IV ceftriaxone for UTI. 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 Appears rather comfortable. Active Medications Ascorbic Acid (Ascorbic Acid 500 Mg Tab) 500 mg PO DAILY [facility] Last Admin: 04/14/23 09:15 Dose: 500 mg Ceftriaxone Sodium 1 gm/ (Sodium Chloride) 50 mls @ 100 mls/hr IVPB Q24H [facility]; Protocol Last Admin: 04/14/23 15:41 Dose: 100 mls/hr Lactulose (Lactulose 20 Gm/30 Ml Cup) 20 gm PO BID [facility] Last Admin: 04/14/23 09:16 Dose: 20 gm Lamotrigine (Lamotrigine 100 Mg Tab) 200 mg PO BID [facility] Last Admin: 04/14/23 09:15 Dose: 200 mg Levothyroxine Sodium (Levothyroxine 88 Mcg Tab) 88 mcg PO DAILY@0630 [facility] Last Admin: 04/14/23 05:48 Dose: 88 mcg Multivitamins (Multivitamins, Thera 1 Each Tab) 1 each PO DAILY [facility] Last Admin: 04/14/23 09:15 Dose: 1 each Naloxone HCl (Naloxone 0.4 Mg/Ml 1 Ml Vial) 0.2 mg IV Q2M PRN PRN Reason: Opioid Reversal Ondansetron HCl (Ondansetron 4 Mg/2 Ml Vial) 4 mg IVP Q8HR PRN PRN Reason: Nausea And Vomiting Oxycodone HCl (Oxycodone Hcl 5 Mg Tab) 10 mg PO Q6H PRN PRN Reason: Pain Last Admin: 04/14/23 18:35 Dose: 10 mg Psyllium Hydrophilic Mucilloid (Psyllium Husk 100% 6 Gm Packet) 6 gm PO BID [facility] Last Admin: 04/14/23 09:16 Dose: 6 gm Quetiapine Fumarate (Quetiapine 100 Mg Tab) 300 mg PO HS [facility] Last Admin: 04/13/23 21:03 Dose: 300 mg Senna/Docusate Sodium (Sennosides-Docusate Sodium 1 Each Tab) 2 each PO DAILY PRN PRN Reason: Constipation Last Admin: 04/13/23 15:06 Dose: 2 each Tamsulosin HCl (Tamsulosin 0.4 Mg Cap.Er.24h) 0.4 mg PO PC-BID [facility] Last Admin: 04/14/23 17:23 Dose: 0.4 mg Trazodone HCl (Trazodone Hcl 50 Mg Tab) 150 mg PO HS [facility] Last Admin: 04/13/23 21:03 Dose: 150 mg Past medical history to include: Iron deficiency anemia, gastric bypass, bipolar disorder, osteoarthritis, constipation possibly from narcotics Social history: Currently in rehab. Prior history of prescription drug abuse. [place]. Has been clean since 2014. Physical examination: VITAL SIGNS: 98.1, 88, 16, 163/94, 95% room air GENERAL: BMI 27.7, reclining in bed awake comfortable. EYES: Pupils equal. Conjunctiva normal. HEENT: External appearance of nose and ears normal, oral cavity grossly normal. NECK: JVD not raised; masses not palpable. HEART: First and second heart sounds are normal; no edema. LUNGS: Respiratory rate normal; clear to auscultation. ABDOMEN: Soft, nontender, liver spleen not palpable, no masses palpable. PSYCH: Alert and oriented x3; mood and affect normal. Does get confused sometimes during history giving. MUSCULOSKELETAL:No Clubbing/cyanosis;muscles-grossly intact. OA. Dressing over lumbar spine. 80 of bruising around the left buttock and adjoining areas. NEUROLOGICAL: Cranial nerves grossly intact; no facial asymmetry, power and sensation grossly intact. LYMPHATICS: No lymph nodes palpable in the axilla and neck INVESTIGATIONS, reviewed in the clinical context: 04/13/2023: White count 13.0 hemoglobin 8.4 platelets 340 potassium 4 creatinine 0.3 albumin 2.8 UA positive for leukoesterase, WBC Chest x-ray film personally reviewed by me-some hyperinflation EKG tracing personally reviewed by me-normal sinus rhythm Lumbar spine CT: Sigmoid diverticulosis. 20.7 cm long fluid collection underlying the posterior midline skin pupils. New inferior endplate fracture of T9 just above the fusion. Subcutaneous soft tissue hematoma spanning 15.8 cm midodrine for centimeter thick along the upper left hip. Previous labs: Hemoglobin 9.1 on April 06 and 13 on April 01 Assessment and plan: -Hematoma along the lumbar spine incision site. Patient has bruising the corresponding part outside. No bruising noted does appear to be healing. Probably best managed conservatively. Dr. Flores has been consulted for follow with him. -Acute postprocedure blood loss anemia secondary to as expected from surgery and secondary to hematoma. Hemodynamically stable. Follow H&H. -Acute gait dysfunction following surgery. Patient getting rehab. PTOT. -Acute delirium. Episodes of confusion patient been having at [facility]. Possibly also from narcotics. Also takes medications for bipolar. : Better -Constipation multifactorial including from narcotics and decreased mobility. Metamucil. -Bipolar disorder Trazodone. Lamictal. Seroquel. -Hypothyroid Synthroid 88 g a day -Urinary retention with bladder scanning repeatedly above 4-500 Increase Flomax to 0.4 mg twice a day. Almendarez catheter -Acute UTI with cystitis. DC Almendarez catheter later treated and was placed in the ER. External catheter/diaper. IV ceftriaxone. Increase Flomax. 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
[2023-04-14] MEDS: traZODone HCL 50 MG TAB PO SCH (21:29)
[2023-04-14] MEDS: QUEtiapine 100 MG TAB PO SCH (21:29)
[2023-04-15] MEDS: LEVOTHYROXINE 88 MCG TAB PO SCH (05:54)
[2023-04-15] MEDS: PSYLLIUM HUSK 100% 6 GM PACKET PO SCH ×5 (08:51→22:24)
[2023-04-15] MEDS: ASCORBIC ACID 500 MG TAB PO SCH (08:51)
[2023-04-15] MEDS: MULTIVITAMINS, THERA 1 EACH TAB PO SCH (08:51)
[2023-04-15] MEDS: LACTULOSE 20 GM/30 ML CUP PO SCH ×3 (08:51→22:08)
[2023-04-15] MEDS: TAMSULOSIN 0.4 MG CAP.ER.24H PO SCH ×2 (08:52→16:11)
[2023-04-15] MEDS: lamoTRIgine 100 MG TAB PO SCH ×2 (08:52→22:06)
--- NOTE | 2023-04-15 09:38 | P.PN ---
Subjective HPI 68-year-old female who is not happy at local rehab facility and wanted to come to the hospital. She started expressing chest discomfort on account of the stress When I saw her she'llsee any chest pain She was not short of breath like she had no dizziness Sometime she developed palpitations 04/14 Patient seen and examined. Patient admits she has not been having any chest discomfort recently decided last week. She denies any palpitations currently. She has been normal sinus rhythm on telemetry. Evaluating other rehab options. Mention a VQ scan yesterday however was not performed. 04/15 Patient seen and examined. Patient denies any chest pain or pressure. Anxious to go home. D-dimer noted be elevated PHYSICAL EXAMINATION Vital signs reviewed. CONSTITUTIONAL: No apparent distress. HEENT: Head is normocephalic. Pupils are equal, round. Sclerae anicteric. Mucous membranes of the mouth are moist. No JVD. No carotid bruit. CHEST EXAMINATION: Lungs are clear to auscultation. No chest wall tenderness is noted on palpation or with deep breathing. HEART EXAMINATION: Regular rate and rhythm. S1, S2 heard. No murmurs, gallops or rub. ABDOMEN: Soft, nontender. Positive bowel sounds. EXTREMITIES: 2+ peripheral pulses, no lower extremity edema and no calf tenderness. NEUROLOGIC EXAMINATION: Patient is awake, alert and oriented x3. ASSESSMENT 1. Atypical chest pain 2. Recent orthopedic surgery with debility 3. Anemia 4. Palpitations 5. Anxiety 6. Elevated d-dimer PLAN Patient's d-dimer elevated which is unsurprising after recent surgery however given some palpitations and chest pain we will check a CTA for completeness sake. If CTA negative, no further workup from a cardiology standpoint as an inpatient. Objective - Vital Signs Vital signs: Vital Signs Temp 97.8 F 04/15/23 08:00 Pulse 92 04/15/23 08:00 Resp 17 04/15/23 08:00 BP 128/78 04/15/23 08:00 Pulse Ox 92 L 04/15/23 08:00 FiO2 Intake & Output 04/14/23 04/15/23 04/15/23 18:59 06:59 18:59 Intake Total 358 240 Output Total 2347 1100 Balance -1988 -1099 240 Intake: Oral 358 240 Output: Urine 1700 1100 Post Void Residual 647 Other: Voiding Method Bedside Commode Indwelling Catheter - Labs CBC & Chem 7: 04/13/23 05:23 04/13/23 05:23 Labs: Abnormal Lab Results - Last 24 Hours (Table) 04/14/23 Range/Units 12:00 D-Dimer 4.87 H (<0.60) mg/L FEU
--- NOTE | 2023-04-15 12:27 | P.PN ---
Subjective Progress Note Date: 04/15/23 Principal diagnosis: Recent G32-Njnjri decompression and fusion Patient seen and examined this morning. Patient is resting comfortable in bed. Patient does report that her pain is managed on current regimen. Surgical incision to the thoracolumbar spine, pressure dressing has been removed with moderate sanguinous drainage. Surgical incision edges are well approximated with juancarlos intact, blanchable redness to the superior region of the incision. No signs of infection. New optifoam dressing applied. Instructed patient to refrain from pressure to incision. Educated on laying to her side or sitting up in chair. Patient denies any numbness or tingling to the bilateral lower extremities. Patient did have a follow-up appointment in office with Dr. Flores scheduled for today, this will be rescheduled. No acute concerns at this time. Objective - Vital Signs Vital signs: Vital Signs Temp 98.3 F 04/15/23 03:35 Pulse 102 H 04/15/23 03:35 Resp 19 04/15/23 03:35 BP 109/69 04/15/23 03:35 Pulse Ox 94 L 04/15/23 03:35 FiO2 Intake & Output 04/14/23 04/15/23 04/15/23 18:59 06:59 18:59 Intake Total 358 Output Total 2347 1100 Balance -1988 -1099 Intake: Oral 358 Output: Urine 1700 1100 Post Void Residual 647 Other: Voiding Method Bedside Commode Indwelling Catheter - Exam Physical Examination General: The patient is awake and alert, in no acute distress Skin: Skin is warm and dry with no obvious rashes or lesions. Surgical incision to the thoracolumbar spine, edges are well approximated with juancarlos intact. Moderate amount of thank you is drainage noted on dressing, no active drainage at this time. New dressing applied. Eye: Pupils are equal, round and reactive to light, extra-ocular movements are intact; there is normal conjunctiva bilaterally. Neck: The neck is supple, there is no tenderness and ROM intact. Cardiovascular: There is a regular rate and rhythm. No murmur, rub or gallop is appreciated. Respiratory: Lungs are clear to auscultation, respirations are non-labored, breath sounds are equal. Gastrointestinal: Soft, non-distended, non-tender abdomen. Back: There is no tenderness to palpation in the midline, paralumbar, parathoracic or buttocks region. There is no obvious deformity . Musculoskeletal: ROM limited secondary to pain and stiffness from surgical procedure. Muscle strength in all major muscle groups of bilateral upper extremities 5/5, bilateral lower extremities 5/5. Neurological: CN 2-12 intact. There are no obvious motor or sensory deficits. Movement and coordination equal and intact. Sensory exam to light touch intact C5-T1 and intact from L2-S1. Reflexes 2/4 in bilateral upper and lower extremities. Negative Hoffmans, babinski, and clonus signs. Psychiatric: Cooperative, appropriate mood & affect, normal judgment. - Labs CBC & Chem 7: 04/13/23 05:23 04/13/23 05:23 Labs: Abnormal Lab Results - Last 24 Hours (Table) 04/14/23 Range/Units 12:00 D-Dimer 4.87 H (<0.60) mg/L FEU Assessment and Plan Assessment: Recent surgery; Postop day 15: [id number] decompression and fusion Plan: -Appreciate recruiting consultant and team management. -Activity: Ambulate QID, OOB all meals, up and about, limit lifting bending twisting to less than 5 lbs. Use walker or cane if needed for stability. -Daily PT/OT, increase ambulation strength and balance. -Brace when up and about, not needed in bed or chair -Pain control: Adequate at this time, continue with current regimen -Meds: reviewed -GI ppx: senna -DVT PPX: Mechanical -Hygiene: Shower today. Maintain dressing clean and dry. Meticulous cleaning after BMs away from the incision site -Encourage IS 10x/hr -Dispo: Patient is cleared from orthopedic standpoint for discharge when medically stable. We will continue to monitor during this stay. *I reviewed and discussed this case with my attending Dr. Flores, whom has reviewed this chart and films and is in agreement with assessment and plan of care as outlined above. I have personally seen and examined the patient, performed the documentation and the assessment and plan as written. Number of minutes spent on the visit: 20m.
--- NOTE | 2023-04-15 14:41 | CT ---
EXAMINATION TYPE: CT angio chest CT DLP: 243.1 mGycm, Automated exposure control for dose reduction was used. DATE OF EXAM: 04/15/2023 11:32 AM COMPARISON: Portable chest x-ray 04/12/2023. CT lumbar spine 04/12/2023. CLINICAL INDICATION:Female, 68 years old with history of re: chest pain, elevated ddimer; TECHNIQUE/CONTRAST: CTA scan of the thorax is performed with IV Contrast, patient injected with 100 mL of Isovue 370, MIP images are created and reviewed these are created on a separate workstation.. FINDINGS: Pulmonary Artery: The main pulmonary artery enhances normally and is enlarged measuring 3.7 cm transv erse. Right and left main pulmonary arteries enhance normally. On the right, the right upper lobe art robbi takes off without definite embolus seen but evaluation is somewhat limited by dense contrast in t he adjacent SVC. At the bifurcation into the right middle and lower lobe arteries, there is a moderat e-sized filling defect seen draped across the bifurcation consistent with acute embolus. The right mi ddle lobe embolus appears to terminate after a few millimeters, however the right lower lobe emboli e xtend farther distally, with portions of embolus seen extending into essentially all segmental branch es of the right lower lobe, greatest in the posterior medial segmental branch continuing distally int o subsegmental branches. On the left, there is no clear evidence of filling defects to convincingly c all PE. Heart: Mildly enlarged with grossly preserved enhancement of the chambers. No CT evidence of right he art strain. Difficult to heel compressor, but there does not seem to be a large amount of coronary artery calci fication. No pericardial effusion. Aorta: Mild atherosclerotic disease of the aorta without evidence of dissection. Fusiform aneurysmal dilatation of the ascending aorta measures up to 4.1 x 4.3 cm. This tapers along the arch with the pr oximal descending aorta measuring 3.1 x 3.1 cm, mid descending 3 cm, at the level of the hiatus 2.9 c m. Mild calcification along the arch and origins of the branch vessels without significant stenosis. In the upper abdomen, some atherosclerotic calcifications can be seen. At the proximal celiac artery there is an abrupt S-shaped configuration with narrowing of the vessel and poststenotic dilatation up to 9 mm, this can be seen with median arcuate ligament syndrome. Visualized proximal SMA appears pat ent. Mediastinum: No gross evidence of adenopathy. Airway: Large airways are patent. Lower neck: No significant findings. Left thyroid lobe not clearly seen, may be absent. Soft Tissues: Some edema is seen in the back overlying the lower thoracic and upper lumbar region whi ch is likely postoperative with multiple pieces of fusion hardware seen in the underlying spine. Lungs/Pleura: Small bilateral pleural effusions. Opacities likely compressive atelectasis adjacent to the effusions, however small infarcts especially in the right lower lobe could be masked. Mild pulmo nary emphysematous changes bilaterally. Linear atelectasis versus scarring in the anterior right uppe r lobe. Small ill-defined focus of subpleural opacity with slightly nodular component in the right lo wer lobe laterally image 92 series 5. In the left upper lobe, there are patchy areas of subpleural gr oundglass opacity anteriorly extending from near the apex down to the mid lung. Bandlike opacity with in the right lower lobe may reflect scarring and/or atelectasis. There is a calcified granuloma in th e left lower lobe on image 101. No sizable nodules of concern can be seen in the limitations of the e xam. No pneumothorax. Musculoskeletal: Degenerative changes the right more than left shoulder. Degenerative changes through out the spine with apex left scoliotic curvature in the mid to upper thoracic region. Inferiorly ther e is redemonstration of kyphoplasty cement within a mildly compressed T10, bilateral pedicle screws a nd posterior fixation rods at T10, T11, T12, and extending into the lumbar spine beyond the scope of the study. Partially redemonstrated is kyphoplasty cement within the L1 vertebral body with mild inde ntation and height loss along its superior endplate, similar to previous. Acute to subacute compressi on fracture deformity with lucency along the inferior endplate of T9 is again seen, with stable mild loss of height and mild retropulsion into the canal. Upper Abdomen: Arterial findings as above. Otherwise no significant/acute finding in the abdomen. Nena gical changes of the distal esophagus and proximal stomach. IMPRESSION: * POSITIVE for pulmonary emboli on the right, beginning at the bifurcation and extending into the ri ght middle and lower lobes (overall larger and more extensive in the lower lobe). * Small bilateral pleural effusions. Opacities likely compressive atelectasis adjacent to the effusi ons, however small infarcts especially in the right lower lobe could be masked. * Mild pulmonary emphysema. Linear atelectasis versus scarring in the anterior right upper lobe. Sma ll ill-defined focus of subpleural opacity with slightly nodular component in the right lower lobe la terally, may represent infectious/inflammatory process. In the left upper lobe, small patchy areas of groundglass opacity may represent infectious/inflammatory process. Bandlike opacity in the left lowe r lobe may reflect scarring and/or atelectasis. Consider six-month CT follow-up. * Mild cardiomegaly. No CT evidence of right heart strain. * Fusiform aneurysmal dilatation of the ascending aorta measures up to 4.1 x 4.3 cm. This tapers laura ng the arch with the proximal descending aorta measuring 3.1 cm, mid descending 3 cm, at the level of the hiatus 2.9 cm. No dissection. * At the proximal celiac artery there is an abrupt S-shaped configuration with narrowing of the vess el and poststenotic dilatation up to 9 mm, this can be seen with median arcuate ligament syndrome. * Multiple findings related to the postoperative lower thoracic spine, as described above. This incl udes a similar appearance of acute/subacute T9 compression fracture with mild retropulsion.
--- NOTE | 2023-04-15 16:30 | US ---
EXAMINATION TYPE: US venous doppler duplex LE BI DATE OF EXAM: 04/15/2023 2:56 PM COMPARISON: NONE CLINICAL INDICATION: Female, 68 years old with history of Rule out DVT; SIDE PERFORMED: Bilateral TECHNIQUE: The lower extremity deep venous system is examined utilizing real time linear array sonog cornel with graded compression, doppler sonography and color-flow sonography. VESSELS IMAGED: Common Femoral Vein Deep Femoral Vein Greater Saphenous Vein * Femoral Vein Popliteal Vein Small Saphenous Vein * Proximal Calf Veins (* superficial vessels) Right Leg: Negative for DVT Left Leg: Negative for DVT IMPRESSION: Grayscale, color doppler, spectral doppler imaging performed of the deep veins of the lo wer extremities. There is normal flow, compressibility, vascular waveforms.
--- NOTE | 2023-04-15 19:41 | P.PN ---
Progress Note - Text Progress Note Date: 04/15/23 Chief Complaint: High blood pressure This is a pleasant 68-year-old patient, follows with Dr. Malik Beyer. Patient on 03/31/2023 underwent lower back surgery by Dr.) Flores. Rather extensive surgery. Following that patient was discharged to [facility] for rehab. Family at the bedside. Does state that she took a fall while she was here and also possibly at the rehab place. Has a bruising on the left side in the buttock area of the beach is actually improving. Patient has been constipated because of pain medications and does have significant pain in the surgical site. Patient has been using a wheelchair and working with physical therapy. Both the family patient has been occasionally getting confused. Patient also been complaining of urine symptoms including dysuria. Found to have UTI in the ER started on IV ceftriaxone. Patient's appetite is fair. Has a bowel movement about 2 or 3 times a week. Does take linzess. History was discussed with the family at the bedside. For the input. 04/14/2023: Patient continues 10 urinary retention. 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 Flomax been increased to 0.4 mg twice a day. On IV ceftriaxone for UTI. spinning room worker looking into another rehab as patient does not want [facility]. Appears rather comfortable. 04/15/2023: Because patient's d-dimer was elevated chest CTA was ordered. Patient actually had no respiratory symptoms. Results showing pulmonary embolism. Discussed with Dr. Burdick. Given the hematoma that should be some reservation. Doppler ultrasound of the lower extremity-negative. We decided to proceed with Lovenox. I also called Dr. Bertin Flores orthopedics given an update. Plan is to watch for another 24-48 hours and make sure there is no further increase it hematoma. Dr. Burdick to speak to the patient to. Earlier spoke to the social science teacher about discharge planning/rehab. Otherwise patient rather comfortable with no respiratory symptoms. Patient's confusion is resolved Total time spent today about 70 minutes with over 50 minutes of discussion. Active Medications Ascorbic Acid (Ascorbic Acid 500 Mg Tab) 500 mg PO DAILY [facility] Last Admin: 04/15/23 08:51 Dose: 500 mg Enoxaparin Sodium (Enoxaparin 80 Mg/0.8 Ml Syringe) 80 mg SQ Q12HR [facility] Ceftriaxone Sodium 1 gm/ (Sodium Chloride) 50 mls @ 100 mls/hr IVPB Q24H [facility]; Protocol Last Admin: 04/15/23 15:14 Dose: 100 mls/hr Lactulose (Lactulose 20 Gm/30 Ml Cup) 20 gm PO BID [facility] Last Admin: 04/15/23 08:51 Dose: 20 gm Lamotrigine (Lamotrigine 100 Mg Tab) 200 mg PO BID [facility] Last Admin: 04/15/23 08:52 Dose: 200 mg Levothyroxine Sodium (Levothyroxine 88 Mcg Tab) 88 mcg PO DAILY@0630 [facility] Last Admin: 04/15/23 05:54 Dose: 88 mcg Multivitamins (Multivitamins, Thera 1 Each Tab) 1 each PO DAILY [facility] Last Admin: 04/15/23 08:51 Dose: 1 each Naloxone HCl (Naloxone 0.4 Mg/Ml 1 Ml Vial) 0.2 mg IV Q2M PRN PRN Reason: Opioid Reversal Ondansetron HCl (Ondansetron 4 Mg/2 Ml Vial) 4 mg IVP Q8HR PRN PRN Reason: Nausea And Vomiting Oxycodone HCl (Oxycodone Hcl 5 Mg Tab) 10 mg PO Q6H PRN PRN Reason: Pain Last Admin: 04/15/23 16:10 Dose: 10 mg Psyllium Hydrophilic Mucilloid (Psyllium Husk 100% 6 Gm Packet) 6 gm PO BID [facility] Last Admin: 04/15/23 15:19 Dose: 6 gm Quetiapine Fumarate (Quetiapine 100 Mg Tab) [address] [facility] Last Admin: 04/14/23 21:29 Dose: 300 mg Senna/Docusate Sodium (Sennosides-Docusate Sodium 1 Each Tab) 2 each PO DAILY PRN PRN Reason: Constipation Last Admin: 04/13/23 15:06 Dose: 2 each Tamsulosin HCl (Tamsulosin 0.4 Mg Cap.Er.24h) 0.4 mg PO PC-BID [facility] Last Admin: 04/15/23 16:11 Dose: 0.4 mg Trazodone HCl (Trazodone Hcl 50 Mg Tab) 150 mg PO HS [facility] Last Admin: 04/14/23 21:29 Dose: 150 mg Past medical history to include: Iron deficiency anemia, gastric bypass, bipolar disorder, osteoarthritis, constipation possibly from narcotics Social history: Currently in rehab. Prior history of prescription drug abuse. Gregory. Has been clean since 2015. Physical examination: VITAL SIGNS: 98.3, 83, 19, 145/81, 92% room air GENERAL: Sitting up in recliner comfortable. EYES: Pupils equal. Conjunctiva normal. HEENT: External appearance of nose and ears normal, oral cavity grossly normal. NECK: JVD not raised; masses not palpable. HEART: First and second heart sounds are normal; no edema. LUNGS: Respiratory rate normal; clear to auscultation. ABDOMEN: Soft, nontender, liver spleen not palpable, no masses palpable. PSYCH: Alert and oriented x3; mood and affect normal. MUSCULOSKELETAL:No Clubbing/cyanosis;muscles-grossly intact. OA. Dressing over lumbar spine. 80 of bruising around the left buttock and adjoining areas. INVESTIGATIONS, reviewed in the clinical context: CT angiogram chest: Pulmonary embolism on the right. Fusiform aneurysmal dilatation ascending aorta. Doppler ultrasound lower extremity: Negative for DVT 04/13/2023: White count 13.0 hemoglobin 8.4 platelets 340 potassium 4 creatinine 0.3 albumin 2.8 UA positive for leukoesterase, WBC Chest x-ray film personally reviewed by me-some hyperinflation EKG tracing personally reviewed by me-normal sinus rhythm Lumbar spine CT: Sigmoid diverticulosis. 20.7 cm long fluid collection underlying the posterior midline skin pupils. New inferior endplate fracture of T9 just above the fusion. Subcutaneous soft tissue hematoma spanning 15.8 cm midodrine for centimeter thick along the upper left hip. Previous labs: Hemoglobin 9.1 on April 06 and 13 on April 01 Assessment and plan: -Acute pulmonary embolism. Likely precipitated by recent surgery and decreased activity. Doppler ultrasound negative for lower extremity DVT.: New diagnosis Discussed with Dr. Burdick. Patient be started on subcu Lovenox. Monitor H&H and the hematoma. -Hematoma along the lumbar spine incision site. Patient has bruising the corresponding part outside. No bruising noted does appear to be healing. Probably best managed conservatively. In monitor hematoma closely as patient be started on Lovenox Dr. Flores has been informed. -Acute postprocedure blood loss anemia secondary to as expected from surgery and secondary to hematoma. Hemodynamically stable. Follow H&H. -Acute gait dysfunction following surgery. Patient getting rehab. PTOT. -Acute delirium. Episodes of confusion patient been having at [facility]. Possibly also from narcotics. Also takes medications for bipolar. : Resolved -Constipation multifactorial including from narcotics and decreased mobility. Metamucil. -Bipolar disorder Trazodone. Lamictal. Seroquel. -Hypothyroid Synthroid 88 g a day -Urinary retention with bladder scanning repeatedly above 4-500 Increase Flomax to 0.4 mg twice a day. Almendarez catheter -Acute UTI with cystitis. IV ceftriaxone.
--- NOTE | 2023-04-15 21:29 | P.CNPUL ---
History of Present Illness Consult date: 04/15/23 Reason for consult: pulmonary embolism History of present illness: I was asked to evaluate this patient regarding abnormal computed tomography scan of the chest, as the patient underwent a CT angiogram and the patient was found to have a defect suggestive of pulmonary embolism. Note that the patient was in the hospital between 03/30/2023 and 04/04/2023. The patient underwent a T10 to pelvis decompression with fusion. She was suffering from chronic back pain secondary to lumbar spondylosis, the for a minute and central canal stenosis. T he patient underwent her surgery and she was being managed on the orthopedic floor. Patient was treated with heparin for DVT prophylaxis postop. The patient had a uneventful postoperative course and she was discharged to subacute rehabilitation on postoperative day #4. Note that the patient did sustain a fall during her hospital stay and she fell on the left side while being transferred or transferring herself from the chair back to the bed. She developed a large bruise the left hip. At the time of discharge from the hospital, the patient's hemoglobin was at 9.1. The patient was readmitted to the hospital on on 04/13/2023 with altered mentation. The patient was having other issues including nonspecific chest pain, constipation related to narcotic medication intake. During her hospital stay, the patient was also treated for an underlying UTI. The patient was seen by cardiology. Her proBNP level was a 41. Troponins were 0.014. The UA was abnormal and culture was not done. The patient received IV Rocephin. Hemoglobin was 8.7 at time of admission and dropped down to 8.4. Left sided hematoma remains stable and unchanged. Normal coagulation profile. D-dimer was elevated at 4.87. Is concerned of pulmonary embolism, Doppler of the lower extremity was done that showed no evidence of any DVT and a CT angiogram that was done showed positive pulmonary embolism on the right side with clots beginning at the bifurcation extending into the right middle lobe and the lower lobes. Carotids were essentially bilateral lower lobes. Small bilateral pleural effusions and compressive atelectatic changes and possibility of a pulmonary infarct in the right lower lobe. The patient also had background emphysema, mild cardiomegaly, aneurysmal dilatation of the ascending aorta measuring 3 x 4.1 cm, postoperative changes involving the lower spine and acute/subacute T9 compression fracture. Based on that, pulmonary consultation was requested. The patient is currently on room air. She denies having any chest pain. No hemoptysis or pleurisy. Echocardiogram has not been done. Review of Systems Constitutional: Reports fatigue, Reports weakness Eyes: denies as per HPI, denies blurred vision, denies bulging eye, denies decreased vision, denies diplopia, denies discharge, denies dry eye, denies irritation, denies itching, denies pain, denies photophobia, denies loss of peripheral vision, denies loss of vision, denies tunnel vision/blind spots Ears: deny: decreased hearing, ear discharge, earache, tinnitus Ears, nose, mouth and throat: Reports as per HPI Breasts: absent: as per HPI, change in shape, gynecomastia, masses, nipple discharge, pain, skin changes, swelling Cardiovascular: Reports chest pain Respiratory: Reports as per HPI Gastrointestinal: Reports constipation Genitourinary: Reports dysuria Menstruation: Reports as per HPI Musculoskeletal: Reports low back pain Musculoskeletal: absent: ankle pain, ankle stiffness, ankle swelling Integumentary: Reports as per HPI, Reports darkening of skin, Reports unusual br uising Neurological: Reports change in mentation, Reports weakness Psychiatric: Reports as per HPI Endocrine: Reports as per HPI Hematologic/Lymphatic: Reports as per HPI Allergic/Immunologic: Reports as per HPI Past Medical History Past Medical History: No Reported History, Hearing Disorder / Deafness, Musculoskeletal Disorder (T10 to pelvis fusion), Thyroid Disorder Additional Past Medical History / Comment(s): IRON DEFICIENCY ANEMIA. History of Any Multi-Drug Resistant Organisms: None Reported Past Surgical History: Back Surgery, Bariatric Surgery, Orthopedic Surgery Additional Past Surgical History / Comment(s): right shoulder, left shoulder, gastric bypass Past Anesthesia/Blood Transfusion Reactions: No Reported Reaction Past Psychological History: Anxiety, Bipolar, Depression Smoking Status: Former smoker Past Alcohol Use History: Abuse Additional Past Alcohol Use History / Comment(s): Pt. drank 3 times a week heavily for 10 yrs. and quit 2 yrs. ago. Past Drug Use History: Prescription Drug Abuse - Past Family History Mother Family Medical History: No Reported History Sister(s) Family Medical History: Pulmonary Embolus Medications and Allergies Home Medications Medication Instructions Recorded Confirmed Type traZODone HCL 150 mg PO HS 04/10/16 04/12/23 History hydrOXYzine pamoate [Vistaril] 25 mg PO BID PRN #60 cap 02/08/18 04/12/23 Rx lamoTRIgine [LaMICtal] 200 mg PO BID 30 Days #60 tablet 02/08/18 04/12/23 Rx Glucosam/Patrice-Msm1/C/Cesar/Bosw 1 tab PO DAILY 03/30/23 04/12/23 History [Glucosamine-Chondroitin Tablet] Levothyroxine Sodium [Synthroid] 88 mcg PO DAILY 03/30/23 04/12/23 History Multivitamin/Iron/Folic Acid 1 tab PO DAILY 03/30/23 04/12/23 History [Centrum Adults Tablet] Ascorbic Acid [Vitamin C] 500 mg PO DAILY 04/12/23 04/12/23 History Lactulose 20 gm PO BID 04/12/23 04/12/23 History QUEtiapine FUMARATE [SEROquel] 300 mg PO HS 04/12/23 04/12/23 History Ferrous Sulfate [Feosol] 325 mg PO BID #60 tab 04/15/23 Rx Psyllium Husk 100% [Metamucil 6 gm PO BID packet 04/15/23 Rx Packet] Tamsulosin [Flomax] 0.4 mg PO PC-BID cap 04/15/23 Rx cefUROXime axetiL [Ceftin] 500 mg PO BID 1 Days #10 tab 04/15/23 Rx oxyCODONE HCL [OxyIR] 10 mg PO Q6H PRN #12 tab 04/15/23 Rx Allergies Allergy/AdvReac Type Severity Reaction Status Date / Time No Known Allergies Allergy Verified 03/31/23 06:13 Physical Exam Vitals: Vital Signs Temp Pulse Resp BP Pulse Ox 04/15/23 14:00 98.3 F 83 19 145/81 92 L 04/15/23 08:00 97.8 F 92 17 128/78 92 L 04/15/23 03:35 98.3 F 102 H 19 109/69 94 L Intake and Output 04/15/23 04/15/23 04/15/23 06:59 14:59 22:59 Intake Total 358 Output Total 1100 600 Balance -1100 358 -600 Intake: Oral 358 Output: Urine 1100 600 Other: Voiding Method Indwelling Catheter GENERAL EXAM: Alert, 68-year-old female, resting in bed, on room air, comfortable in no apparent distress. HEAD: Normocephalic. EYES: Normal reaction of pupils, equal size. NOSE: Clear with pink turbinates. THROAT: No erythema or exudates. NECK: No masses, no JVD. CHEST: No chest wall deformity. LUNGS: Equal air entry with no crackles, wheeze, rhonchi or dullness. CVS: S1 and S2 normal with no audible murmur, regular rhythm. ABDOMEN: No hepatosplenomegaly, normal bowel sounds, no guarding or rigidity. SPINE: No scoliosis or deformity, dressing dry and intact SKIN: No rashes, Subcutaneous soft tissue hematoma measuring 15 x 4 cm in size along the left upper hip extending to the back, and the area is known painful at this point in time. Surgical one-sided over the back is dry clean and intact CENTRAL NERVOUS SYSTEM: No focal deficits, tone is normal in all 4 extremities. EXTREMITIES: Ecchymosis over left hip There is no peripheral edema. No clubbing , no cyanosis. Peripheral pulses are intact. Results - Laboratory Findings CBC and BMP: 04/13/23 05:23 04/13/23 05:23 PT/INR, D-dimer PT 11.6 sec (10.0-12.5) 04/12/23 12:58 INR 1.1 (<1.2) 04/12/23 12:58 D-Dimer 4.87 mg/L FEU (<0.60) H 04/14/23 12:00 Abnormal lab findings: Abnormal Labs 04/12/23 04/12/23 04/12/23 12:58 12:58 14:31 WBC 14.5 H RBC 2.86 L Hgb 8.7 L D Hct 26.1 L MCHC RDW 19.4 H MPV Immature Gran # Neutrophils # 12.8 H Lymphocytes # 0.7 L Monocytes # D-Dimer Sodium 129 L BUN Creatinine 0.31 L Plasma Lactic Acid Manuel Calcium Alkaline Phosphatase 127 H Creatine Kinase Total Protein 5.0 L Albumin 2.6 L Urine Appearance Turbid H Urine Protein 1+ H Urine Ketones 1+ H Urine Blood Small H Ur Leukocyte Esterase Large H Urine RBC 16 H Urine WBC >182 H Urine WBC Clumps Many H Urine Bacteria Rare H Urine Mucus Rare H 04/12/23 04/12/23 04/13/23 14:33 16:29 05:23 WBC 13.09 H RBC 2.90 L Hgb 8.4 L Hct 26.4 L MCHC 31.8 L RDW 21.2 H MPV 9.1 L Immature Gran # 0.33 H Neutrophils # 10.63 H Lymphocytes # 0.72 L Monocytes # 1.10 H D-Dimer Sodium BUN Creatinine Plasma Lactic Acid Manuel 0.6 L Calcium Alkaline Phosphatase Creatine Kinase 140 H Total Protein Albumin Urine Appearance Urine Protein Urine Ketones Urine Blood Ur Leukocyte Esterase Urine RBC Urine WBC Urine WBC Clumps Urine Bacteria Urine Mucus 04/13/23 04/14/23 05:23 12:00 WBC RBC Hgb Hct MCHC RDW MPV Immature Gran # Neutrophils # Lymphocytes # Monocytes # D-Dimer 4.87 H Sodium 134 L BUN 5.4 L Creatinine 0.3 L Plasma Lactic Acid Manuel Calcium 8.4 L Alkaline Phosphatase Creatine Kinase Total Protein 4.4 L Albumin 2.8 L Urine Appearance Urine Protein Urine Ketones Urine Blood Ur Leukocyte Esterase Urine RBC Urine WBC Urine WBC Clumps Urine Bacteria Urine Mucus - Diagnostic Findings CT scan - chest: image reviewed Assessment and Plan Plan: Acute bilateral pulmonary embolism, right more than left involving the right middle lobe and the lower lobes bilaterally. Clinically patient was having some atypical chest pain currently she is asymptomatic. No shortness of breath. No hypoxemia. No hemodynamic instability. Doppler lower extremities are negative. This is likely a post orthopedic surgery pulmonary embolism provoked by surgery and mobility. No previous history of DVT or pulmonary embolism. The patient was given heparin prior to discharge from the hospital. Lumbar pain, status post elective T10 to pelvis revision decompression and fusion. Status post fall with left hip pain, x-rays revealed no fracture, hardware intact and a CAT scan revealed a soft tissue hematoma with a left hip area and there is no significant drop in hemoglobin since her discharge from the hospital approximately 10 days ago. Most recent hemoglobin is at 8.4. Hematoma itself has remained stable Constipation with a stool burden involving the right hemicolon UTI Sigmoid diverticulosis Hypertension History of anxiety/depression History of bipolar disorder Former smoker Plan I had a lengthy discussion with the primary care team. The orthopedic surgeon was also involvement in discussion. Obviously, the patient need for anticoagulation. One concern is a hematoma that has developed in approximately 2 weeks ago following surgery and the patient sustained a fall. Nevertheless, the hematoma is stable and the patient has had a stable hemoglobin. As such, if he is safe and treating this patient because the patient on Lovenox 1 mg/kg every 12 hours. Whether IV heparin , due to the variability in of anticoagul ation. If the patient is able to tolerate Lovenox as well as significant increased hematoma or drop in hemoglobin, she may be switched to Eliquis During this time, the patient will be maintained on anticoagulants. We'll monitor the hemoglobin and the progression of hematoma while being on anticoagulants.
[2023-04-15] MEDS: ENOXAPARIN 80 MG/0.8 ML SYRINGE SQ SCH (22:05)
[2023-04-15] MEDS: QUEtiapine 100 MG TAB PO SCH (22:06)
[2023-04-15] MEDS: traZODone HCL 50 MG TAB PO SCH (22:06)
[2023-04-15] MEDS: CEPHALEXIN 250 MG CAP PO SCH (22:06)
[2023-04-16 04:51] LABS: Anisocytosis Slight; Basophils % (A) 0 %; Eosinophils # (A) 0.2 k/uL (0-0.7); Eosinophils % (A) 2 %; HCT 30.2 % (34.0-46.0); HGB 9.6 gm/dL (11.4-16.0); Hypochromasia Slight; Lymphocytes # (A) 0.8 k/uL (1.0-4.8); Lymphocytes % (A) 9 %; MCH 29.7 pg (25.0-35.0); MCHC 31.9 g/dL (31.0-37.0); MCV 93.1 fL (80.0-100.0); Mean Platelet Volume 6.9; Monocytes # (A) 0.5 k/uL (0-1.0); Monocytes % (A) 5 %; Neutrophils % (A) 82 %; Platelet Count 384 k/uL (150-450); RBC 3.24 m/uL (3.80-5.40); RDW 19.3 % (11.5-15.5); WBC 8.6 k/uL (3.8-10.6)
[2023-04-16] MEDS: LEVOTHYROXINE 88 MCG TAB PO SCH (06:23)
--- NOTE | 2023-04-16 07:42 | P.PN ---
Subjective Progress Note Date: 04/16/23 Principal diagnosis: Recent [id number] decompression and fusion Patient seen and examined this morning. Patient is resting comfortable in bed. Patient does report that her pain is managed on current regimen. Surgical incision to the thoracolumbar spine, dressing has some shadowing to the upper portion. Dressing to be changed tomorrow or prior to discharge. Instructed magdalena ent to refrain from pressure to incision. Educated on laying to her side or sitting up in chair. No acute concerns at this time. Objective - Vital Signs Vital signs: Vital Signs Temp 98.3 F 04/16/23 07:33 Pulse 96 04/16/23 07:33 Resp 18 04/16/23 07:33 BP 133/70 04/16/23 07:33 Pulse Ox 96 04/16/23 07:33 FiO2 Intake & Output 04/15/23 04/16/23 04/16/23 18:59 06:59 18:59 Intake Total 358 Output Total 600 2950 Balance -242 -2950 Intake: Oral 358 Output: Urine 600 2950 Other: Voiding Method Indwelling Catheter Indwelling Catheter - Exam Physical Examination General: The patient is awake and alert, in no acute distress Skin: Skin is warm and dry with no obvious rashes or lesions. Surgical incision to the thoracolumbar spine, dressing intact, some shadowing noted to th e upper region. Dressing to be changed tomorrow or prior to discharge. Eye: Pupils are equal, round and reactive to light, extra-ocular movements are intact; there is normal conjunctiva bilaterally. Neck: The neck is supple, there is no tenderness and ROM intact. Cardiovascular: There is a regular rate and rhythm. No murmur, rub or gallop is appreciated. Respiratory: Lungs are clear to auscultation, respirations are non-labored, breath sounds are equal. Gastrointestinal: Soft, non-distended, non-tender abdomen. Back: There is no tenderness to palpation in the midline, paralumbar, parathoracic or buttocks region. There is no obvious deformity . Musculoskeletal: ROM limited secondary to pain and stiffness from surgical procedure. Muscle strength in all major muscle groups of bilateral upper extremities 5/5, bilateral lower extremities 4/5. Neurological: CN 2-12 intact. There are no obvious motor or sensory deficits. Movement and coordination equal and intact. Sensory exam to light touch intact C5-T1 and intact from L2-S1. Reflexes 2/4 in bilateral upper and lower extre mities. Negative Hoffmans, babinski, and clonus signs. Psychiatric: Cooperative, appropriate mood & affect, normal judgment. - Labs CBC & Chem 7: 04/16/23 04:34 04/13/23 05:23 Labs: Abnormal Lab Results - Last 24 Hours (Table) 04/16/23 Range/Units 04:34 RBC 3.24 L (3.80-5.40) m/uL Hgb 9.6 L (11.4-16.0) gm/dL Hct 30.2 L (34.0-46.0) % RDW 19.3 H (11.5-15.5) % Lymphocytes # 0.8 L (1.0-4.8) k/uL Assessment and Plan Assessment: Recent surgery; Postop day 15: [id number] decompression and fusion Plan: -Appreciate software sales consultant and team management. -Activity: Ambulate QID, OOB all meals, up and about, limit lifting bending twisting to less than 5 lbs. Use walker or cane if needed for stability. -Daily PT/OT, increase ambulation strength and balance. -Brace when up and about, not needed in bed or chair -Pain control: Adequate at this time, continue with current regimen -Meds: reviewed -GI ppx: senna -DVT PPX: Mechanical -Hygiene: Shower today. Maintain dressing clean and dry. Meticulous cleaning after BMs away from the incision site. Dressing to be changed tomorrow 04/17/23 or prior to discharge. -Encourage IS 10x/hr -Dispo: Patient is cleared from orthopedic standpoint for discharge when medically stable. We will continue to monitor during this stay. *I reviewed and discussed this case with my attending Dr. Flores, whom has reviewed this chart and films and is in agreement with assessment and plan of care as outlined above. I have personally seen and examined the patient, performed the documentation and the assessment and plan as written. Number of minutes spent on the visit: 20m.
--- NOTE | 2023-04-16 09:01 | P.PN ---
Subjective HPI 68-year-old female who is not happy at local rehab facility and wanted to come to the hospital. She started expressing chest discomfort on account of the stress When I saw her she'llsee any chest pain She was not short of breath like she had no dizziness Sometime she developed palpitations 04/14 Patient seen and examined. Patient admits she has not been having any chest discomfort recently decided last week. She denies any palpitations currently. She has been normal sinus rhythm on telemetry. Evaluating other rehab options. Mention a VQ scan yesterday however was not performed. 04/15 Patient seen and examined. Patient denies any chest pain or pressure. Anxious to go home. D-dimer noted be elevated 04/16 Patient seen and examined. Denies any chest pain or pressure. CTA showed right PE with additional aortic aneurysm measuring 4.3 cm. Pulmonology was consulted and started on Lovenox with possible transition to NOAC if no change in hematoma. Hgb today stable at 9.6. PHYSICAL EXAMINATION Vital signs reviewed. CONSTITUTIONAL: No apparent distress. HEENT: Head is normocephalic. Pupils are equal, round. Sclerae anicteric. Mucous membranes of the mouth are moist. No JVD. No carotid bruit. CHEST EXAMINATION: Lungs are clear to auscultation. No chest wall tenderness is noted on palpation or with deep breathing. HEART EXAMINATION: Regular rate and rhythm. S1, S2 heard. No murmurs, gallops or rub. ABDOMEN: Soft, nontender. Positive bowel sounds. EXTREMITIES: 2+ peripheral pulses, no lower extremity edema and no calf tenderness. NEUROLOGIC EXAMINATION: Patient is awake, alert and oriented x3. ASSESSMENT 1. Atypical chest pain 2. Recent orthopedic surgery with debility 3. Anemia 4. Palpitations 5. Anxiety 6. Elevated d-dimer 7. Acute right PE PLAN No DVT of LE and PE likely provoked by recent surgery with no prior history. Check 2D echo for baseline RVSP however no significant strain noted on CT. Continue with Lovenox and if tolerating with no change in hematoma, transition to NOAC. Objective - Vital Signs Vital signs: Vital Signs Temp 98.3 F 04/16/23 07:33 Pulse 96 04/16/23 07:33 Resp 18 04/16/23 07:33 BP 133/70 04/16/23 07:33 Pulse Ox 96 04/16/23 07:33 FiO2 Intake & Output 04/15/23 04/16/23 04/16/23 18:59 06:59 18:59 Intake Total 358 Output Total 600 2950 Balance -242 -2950 Intake: Oral 358 Output: Urine 600 2950 Other: Voiding Method Indwelling Catheter Indwelling Catheter - Labs CBC & Chem 7: 04/16/23 04:34 04/13/23 05:23 Labs: Abnormal Lab Results - Last 24 Hours (Table) 04/16/23 Range/Units 04:34 RBC 3.24 L (3.80-5.40) m/uL Hgb 9.6 L (11.4-16.0) gm/dL Hct 30.2 L (34.0-46.0) % RDW 19.3 H (11.5-15.5) % Lymphocytes # 0.8 L (1.0-4.8) k/uL
[2023-04-16] MEDS: CEPHALEXIN 250 MG CAP PO SCH ×4 (09:21→20:41)
[2023-04-16] MEDS: ENOXAPARIN 80 MG/0.8 ML SYRINGE SQ SCH ×2 (09:21→20:41)
[2023-04-16] MEDS: TAMSULOSIN 0.4 MG CAP.ER.24H PO SCH ×2 (09:22→18:26)
[2023-04-16] MEDS: LACTULOSE 20 GM/30 ML CUP PO SCH ×2 (09:22→20:41)
[2023-04-16] MEDS: PSYLLIUM HUSK 100% 6 GM PACKET PO SCH ×2 (09:22→20:41)
[2023-04-16 09:24] VITALS: BMI 27.6
[2023-04-16] MEDS: ASCORBIC ACID 500 MG TAB PO SCH (09:24)
[2023-04-16] MEDS: lamoTRIgine 100 MG TAB PO SCH ×2 (09:24→20:41)
[2023-04-16] MEDS: MULTIVITAMINS, THERA 1 EACH TAB PO SCH (09:24)
--- NOTE | 2023-04-16 13:29 | CA ---
Transthoracic Echo Report Name: Darline Chiang Age: 68 Gender: F : 1955 Exam Date: 04/16/2023 11:12 Exam Location: [place] [facility] Ht (in): 68 Wt (lb): 182 Ordering Physician: Sandeep Navarro DO ([email or web address]) Attending/Referring Phys: Pump Erector Aline Shahid [facility] Procedure CPT: Indications: re: acute PE Cardiac Hx: Technical Quality: Fair Contrast 1: Total Dose (mL): Contrast 2: Total Dose (mL): MEASUREMENTS (Male / Female) Normal Values 2D ECHO LV Diastolic Diameter PLAX 4.5 cm 4.2 - 5.9 / 3.9 - 5.3 cm LV Systolic Diameter PLAX 3.3 cm IVS Diastolic Thickness 1.0 cm 0.6 - 1.0 / 0.6 - 0.9 cm LVPW Diastolic Thickness 1.0 cm 0.6 - 1.0 / 0.6 - 0.9 cm LV Relative Wall Thickness 0.4 LVOT Diameter 2.1 cm Ascending Aorta Diameter 3.9 cm M-MODE Aortic Root Diameter MM 2.7 cm LA Systolic Diameter MM 3.2 cm LA Ao Ratio MM 1.2 AV Cusp Separation MM 2.2 cm DOPPLER AV Peak Velocity 139.0 cm/s AV Peak Gradient 7.7 mmHg AV Mean Velocity 99.1 cm/s AV Mean Gradient 4.4 mmHg AV Velocity Time Integral 27.4 cm LVOT Peak Velocity 99.3 cm/s LVOT Peak Gradient 3.9 mmHg LVOT Velocity Time Integral 19.3 cm LVOT Stroke Volume 68.8 cm??? LVOT Stroke Volume Index 35.0 ml/m??? LVOT Cardiac Index 2844.4 cm???/min???m??? AV Area Cont Eq vti 2.5 cm??? AV Area Cont Eq pk 2.5 cm??? Mitral E Point Velocity 49.4 cm/s Mitral A Point Velocity 71.1 cm/s Mitral E to A Ratio 0.7 MV Deceleration Time 231.1 ms LV E' Lateral Velocity 13.3 cm/s Mitral E to LV E' Lateral Ratio 3.7 LV E' Septal Velocity 10.4 cm/s Mitral E to LV E' Septal Ratio 4.8 TR Peak Velocity 192.4 cm/s TR Peak Gradient 14.8 mmHg Right Atrial Pressure 8.0 mmHg Pulmonary Artery Systolic Pressu 22.8 mmHg Right Ventricular Systolic Press 22.8 mmHg FINDINGS Left Ventricle Mildly increased left ventricular wall thickness. Left ventricular cavity size normal. Low normal left ventricular systolic function with no obvious regional wall motion abnormalities. Left ventricular ejection fraction is estimated at 50-55%. Right Ventricle No right ventricular dilatation. Normal right ventricular global systolic function. Right Atrium Moderate right atrial dilatation. Left Atrium Left atrial size at the upper limits of normal. Mitral Valve Mitral valve thickened. Mitral valve prolapse. Mild mitral regurgitation. Aortic Valve Trileaflet aortic valve. No aortic valve stenosis or regurgitation. Tricuspid Valve Structurally normal tricuspid valve. Mild tricuspid regurgitation. Pulmonic Valve Pulmonic valve not well visualized. Pericardium No pericardial effusion. Aorta Normal size aortic root and mildly dilated proximal ascending aorta. CONCLUSIONS Mildly increased left ventricular wall thickness Left ventricular ejection fraction 50-55% RVSP 23 Mild mitral regurgitation Mild tricuspid regurgitation Previewed by: Dr. Sandeep Navarro DO (Electronically Signed) Final Date: 16 April 2023 13:28
--- NOTE | 2023-04-16 14:18 | P.PN ---
Subjective Progress Note Date: 04/16/23 I was asked to evaluate this patient regarding abnormal computed tomography scan of the chest, as the patient underwent a CT angiogram and the patient was found to have a defect suggestive of pulmonary embolism. Note that the patient was in the hospital between 03/30/2023 and 04/04/2023. The patient underwent a T10 to pelvis decompression with fusion. She was suffering from chronic back pain secondary to lumbar spondylosis, the for a minute and central canal stenosis. The patient underwent her surgery and she was being managed on the orthopedic floor. Patient was treated with heparin for DVT prophylaxis postop. The patient had a uneventful postoperative course and she was discharged to subacute rehabilitation on postoperative day #4. Note that the patient did sustain a fall during her hospital stay and she fell on the left side while being transferred or transferring herself from the chair back to the bed. She developed a large bruise the left hip. At the time of discharge from the hospital, the patient's hemoglobin was at 9.1. The patient was readmitted to the hospital on on 04/13/2023 with altered mentation. The patient was having other issues including nonspecific chest pain, constipation related to narcotic medication intake. During her hospital stay, the patient was also treated for an underlying UTI. The patient was seen by cardiology. Her proBNP level was a 41. Troponins were 0.014. The UA was abnormal and culture was not done. The patient received IV Rocephin. Hemoglobin was 8.7 at time of admission and dropped down to 8.4. Left sided hematoma remains stable and unchanged. Normal coagulation profile. D-dimer was elevated at 4.87. Is concerned of pulmonary embolism, Doppler of the lower extremity was done that showed no evidence of any DVT and a CT angiogram that was done showed positive pulmonary embolism on the right side with clots beginning at the bifurcation extending into the right middle lobe and the lower lobes. Carotids were essentially bilateral lower lobes. Small bilateral pleural effusions and compressive atelectatic changes and possibility of a pulmonary infarct in the right lower lobe. The patient also had background emphysema, mild cardiomegaly, aneurysmal dilatation of the ascending aorta measuring 3 x 4.1 cm, postoperative changes involving the lower spine and acute/subacute T9 compression fracture. Based on that, pulmonary consultation was requested. The patient is currently on room air. She denies having any chest pain. No hemoptysis or pleurisy. Echocardiogram has not been done. On today's evaluation of 04/08/2020, the patient is doing well forspecific complaints. The patient on Lovenox. Hemoglobin is stable. The hematoma over the left hip area is essentially unchanged. The plan is to continue anticoagulation for now. Patient remains on room air oxygen. The blood work shows a hemoglobin 9.6, white cell count of 8.6. Platelets of 384. Objective - Vital Signs Vital signs: Vital Signs Temp 98.3 F 04/16/23 07:33 Pulse 96 04/16/23 07:33 Resp 18 04/16/23 07:33 BP 133/70 04/16/23 07:33 Pulse Ox 96 04/16/23 07:33 FiO2 Intake & Output 04/15/23 04/16/23 04/16/23 18:59 06:59 18:59 Intake Total 358 Output Total 600 2950 Balance -242 -2950 Weight 82.554 kg Intake: Oral 358 Output: Urine 600 2950 Other: Voiding Method Indwelling Catheter Indwelling Catheter Indwelling Catheter - Exam GENERAL EXAM: Alert, 68-year-old female, resting in bed, on room air, comfortable in no apparent distress. HEAD: Normocephalic. EYES: Normal reaction of pupils, equal size. NOSE: Clear with pink turbinates. THROAT: No erythema or exudates. NECK: No masses, no JVD. CHEST: No chest wall deformity. LUNGS: Equal air entry with no crackles, wheeze, rhonchi or dullness. CVS: S1 and S2 normal with no audible murmur, regular rhythm. ABDOMEN: No hepatosplenomegaly, normal bowel sounds, no guarding or rigidity. SPINE: No scoliosis or deformity, dressing dry and intact SKIN: No rashes, Subcutaneous soft tissue hematoma measuring 15 x 4 cm in size along the left upper hip extending to the back, and the area is known painful at this point in time. Surgical one-sided over the back is dry clean and intact CENTRAL NERVOUS SYSTEM: No focal deficits, tone is normal in all 4 extremities. EXTREMITIES: Ecchymosis over left hip There is no peripheral edema. No clubbing, no cyanosis. Peripheral pulses are intact. - Labs CBC & Chem 7: 04/16/23 04:34 04/13/23 05:23 Labs: Abnormal Lab Results - Last 24 Hours (Table) 04/16/23 Range/Units 04:34 RBC 3.24 L (3.80-5.40) m/uL Hgb 9.6 L (11.4-16.0) gm/dL Hct 30.2 L (34.0-46.0) % RDW 19.3 H (11.5-15.5) % Lymphocytes # 0.8 L (1.0-4.8) k/uL Assessment and Plan Plan: Acute bilateral pulmonary embolism, right more than left involving the right middle lobe and the lower lobes bilaterally. Clinically patient was having some atypical chest pain currently she is asymptomatic. No shortness of breath. No hypoxemia. No hemodynamic instability. Doppler lower extremities are negative. This is likely a post orthopedic surgery pulmonary embolism provoked by surgery and mobility. No previous history of DVT or pulmonary embolism. The patient was given heparin prior to discharge from the hospital. The patient is currently on Lovenox or vertigo this Lumbar pain, status post elective T10 to pelvis revision decompression and fusion. Status post fall with left hip pain, x-rays revealed no fracture, hardware intact and a CAT scan revealed a soft tissue hematoma with a left hip area and there is no significant drop in hemoglobin since her discharge from the hospital approximately 10 days ago. Most recent hemoglobin is at 8.4. Hematoma itself has remained stable Constipation with a stool burden involving the right hemicolon UTI Sigmoid diverticulosis Hypertension History of anxiety/depression History of bipolar disorder Former smoker Plan I had a lengthy discussion with the primary care team. The orthopedic surgeon was also involvement in discussion. Obviously, the patient need for anticoagulation. One concern is a hematoma that has developed in approximately 2 weeks ago following surgery and the patient sustained a fall. Nevertheless, the hematoma is stable and the patient has had a stable hemoglobin. As such, if he is safe and treating this patient because the patient on Lovenox 1 mg/kg every 12 hours. Whether IV heparin , due to the variability in of anticoagula tion. If the patient is able to tolerate Lovenox as well as significant increased hematoma or drop in hemoglobin, she may be switched to Eliquis The patient is currently on Lovenox The patient is tolerating the treatment without any bleeding complications and the hemoglobin is stable Monitor hemoglobin and moderate hematoma and continue Lovenox for now Discharge planning is in progress
[2023-04-16] MEDS: SENNOSIDES-DOCUSATE SODIUM 1 EACH TAB PO PRN (18:35)
--- NOTE | 2023-04-16 19:36 | P.PN ---
Progress Note - Text Progress Note Date: 04/16/23 Chief Complaint: High blood pressure This is a pleasant 68-year-old patient, follows with Dr. Malik Beyer. Patient on 03/31/2023 underwent lower back surgery by Dr.) Flores. Rather extensive surgery. Following that patient was discharged to [facility] for rehab. Family at the bedside. Does state that she took a fall while she was here and also possibly at the rehab place. Has a bruising on the left side in the buttock area of the beach is actually improving. Patient has been constipated because of pain medications and does have significant pain in the surgical site. Patient has been using a wheelchair and working with physical therapy. Both the family patient has been occasionally getting confused. Patient also been complaining of urine symptoms including dysuria. Found to have UTI in the ER started on IV ceftriaxone. Patient's appetite is fair. Has a bowel movement about 2 or 3 times a week. Does take linzess. History was discussed with the family at the bedside. For the input. 04/14/2023: Patient continues 10 urinary retention. 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 Flomax been increased to 0.4 mg twice a day. On IV ceftriaxone for UTI. 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 Appears rather comfortable. 04/15/2023: Because patient's d-dimer was elevated chest CTA was ordered. Patient actually had no respiratory symptoms. Results showing pulmonary embolism. Discussed with Dr. Brudick. Given the hematoma that should be some reservation. Doppler ultrasound of the lower extremity-negative. We decided to proceed with Lovenox. I also called Dr. Bertin Flores orthopedics given an update. Plan is to watch for another 24-48 hours and make sure there is no further increase it hematoma. Dr. Burdick to speak to the patient to. Earlier spoke to the clinical social work aide about discharge planning/rehab. Otherwise patient rather comfortable with no respiratory symptoms. Patient's confusion is resolved Total time spent today about 70 minutes with over 50 minutes of discussion. 04/16/2023: Sitting up in a chair. Oral intake fair. On subcu Lovenox. Hemoglobin remained stable. Discussed with patient. Active Medications Ascorbic Acid (Ascorbic Acid 500 Mg Tab) 500 mg PO DAILY BRYN Last Admin: 04/16/23 09:24 Dose: 500 mg Cephalexin (Cephalexin 250 Mg Cap) 250 mg PO QID [facility]; Protocol Last Admin: 04/16/23 18:32 Dose: 250 mg Enoxaparin Sodium (Enoxaparin 80 Mg/0.8 Ml Syringe) 80 mg SQ Q12HR [facility] Last Admin: 04/16/23 09:21 Dose: 80 mg Lactulose (Lactulose 20 Gm/30 Ml Cup) 20 gm PO BID [facility] Last Admin: 04/16/23 09:22 Dose: 20 gm Lamotrigine (Lamotrigine 100 Mg Tab) 200 mg PO BID [facility] Last Admin: 04/16/23 09:24 Dose: 200 mg Levothyroxine Sodium (Levothyroxine 88 Mcg Tab) 88 mcg PO DAILY@0630 [facility] Last Admin: 04/16/23 06:23 Dose: 88 mcg Multivitamins (Multivitamins, Thera 1 Each Tab) 1 each PO DAILY [facility] Last Admin: 04/16/23 09:24 Dose: 1 each Naloxone HCl (Naloxone 0.4 Mg/Ml 1 Ml Vial) 0.2 mg IV Q2M PRN PRN Reason: Opioid Reversal Ondansetron HCl (Ondansetron 4 Mg/2 Ml Vial) 4 mg IVP Q8HR PRN PRN Reason: Nausea And Vomiting Oxycodone HCl (Oxycodone Hcl 5 Mg Tab) 10 mg PO Q6H PRN PRN Reason: Pain Last Admin: 04/16/23 18:26 Dose: 10 mg Psyllium Hydrophilic Mucilloid (Psyllium Husk 100% 6 Gm Packet) 6 gm PO BID [facility] Last Admin: 04/16/23 09:22 Dose: 6 gm Quetiapine Fumarate (Quetiapine 100 Mg Tab) 300 mg PO [facility] Last Admin: 04/15/23 22:06 Dose: 300 mg Senna/Docusate Sodium (Sennosides-Docusate Sodium 1 Each Tab) 2 each PO DAILY PRN PRN Reason: Constipation Last Admin: 04/16/23 18:35 Dose: 2 each Tamsulosin HCl (Tamsulosin 0.4 Mg Cap.Er.24h) 0.4 mg PO PC-BID [facility] Last Admin: 04/16/23 18:26 Dose: 0.4 mg Trazodone HCl (Trazodone Hcl 50 Mg Tab) 150 mg PO [facility] Last Admin: 04/15/23 22:06 Dose: 150 mg Past medical history to include: Iron deficiency anemia, gastric bypass, bipolar disorder, osteoarthritis, constipation possibly from narcotics Social history: Currently in rehab. Prior history of prescription drug abuse. [place]. Has been clean since 2014. Physical examination: VITAL SIGNS: 98.3, 96, 18, 133.70, 96% room air GENERAL: Sitting up in recliner comfortable. EYES: Pupils equal. Conjunctiva normal. HEENT: External appearance of nose and ears normal, oral cavity grossly normal. NECK: JVD not raised; masses not palpable. HEART: First and second heart sounds are normal; no edema. LUNGS: Respiratory rate normal; clear to auscultation. ABDOMEN: Soft, nontender, liver spleen not palpable, no masses palpable. PSYCH: Alert and oriented x3; mood and affect normal. MUSCULOSKELETAL:No Clubbing/cyanosis;muscles-grossly intact. OA. Dressing over lumbar spine. area of bruising around the left buttock and adjoining areas-no worsening. INVESTIGATIONS, reviewed in the clinical context: 04/16/2023: 28.6 hemoglobin 9.[address] angiogram chest: Pulmonary embolism on the right. Fusiform aneurysmal dilatation ascending aorta. Doppler ultrasound lower extremity: Negative for DVT 04/13/2023: White count 13.0 hemoglobin 8.4 platelets 340 potassium 4 creatinine 0.3 albumin 2.8 UA positive for leukoesterase, WBC Chest x-ray film personally reviewed by me-some hyperinflation EKG tracing personally reviewed by me-normal sinus rhythm Lumbar spine CT: Sigmoid diverticulosis. 20.7 cm long fluid collection underlying the posterior midline skin pupils. New inferior endplate fracture of T9 just above the fusion. Subcutaneous soft tissue hematoma spanning 15.8 cm midodrine for centimeter thick along the upper left hip. Previous labs: Hemoglobin 9.1 on April 06 and 13 on April 01 Assessment and plan: -Acute pulmonary embolism. Likely precipitated by recent surgery and decreased activity. Doppler ultrasound negative for lower extremity DVT.: New diagnosis Discussed with Dr. Burdick. subcu Lovenocarmen. Monitor H&H and the hematoma. -Hematoma along the lumbar spine incision site. Patient has bruising the corresponding part outside. No bruising noted does appear to be healing. Probably best managed conservatively. monitor hematoma closely as patient be started on Lovenox Dr. Flores has been informed. -Acute postprocedure blood loss anemia secondary to as expected from surgery and secondary to hematoma. Hemodynamically stable. Follow H&H. -Acute gait dysfunction following surgery. Patient getting rehab. PTOT. -Acute delirium. Episodes of confusion patient been having at [facility]. Possibly also from narcotics. Also takes medications for bipolar. : Resolved -Constipation multifactorial including from narcotics and decreased mobility. Metamucil. -Bipolar disorder Trazodone. Lamictal. Seroquel. -Hypothyroid Synthroid 88 g a day -Urinary retention with bladder scanning repeatedly above 4-500 Increase Flomax to 0.4 mg twice a day. Almendarez catheter -Acute UTI with cystitis. IV ceftriaxone-Keflex.
[2023-04-16] MEDS: traZODone HCL 50 MG TAB PO SCH (20:41)
[2023-04-16] MEDS: QUEtiapine 100 MG TAB PO SCH (20:41)
[2023-04-16] MEDS ORDERED: ACETAMINOPHEN TAB 500 MG TAB PO PRN (22:56)
[2023-04-17] MEDS: LEVOTHYROXINE 88 MCG TAB PO SCH (05:59)
[2023-04-17 06:32] LABS: Anisocytosis Slight; Basophils % (A) 0 %; Eosinophils # (A) 0.2 k/uL (0-0.7); Eosinophils % (A) 2 %; HCT 29.3 % (34.0-46.0); HGB 9.4 gm/dL (11.4-16.0); Hypochromasia Moderate; Lymphocytes # (A) 0.6 k/uL (1.0-4.8); Lymphocytes % (A) 7 %; MCH 30.4 pg (25.0-35.0); MCV 94.8 fL (80.0-100.0); Macrocytosis Slight; Mean Platelet Volume 7.2; Monocytes # (A) 0.5 k/uL (0-1.0); Monocytes % (A) 6 %; Neutrophils % (A) 83 %; Platelet Count 393 k/uL (150-450); RBC 3.09 m/uL (3.80-5.40); RDW 19.6 % (11.5-15.5); WBC 8.5 k/uL (3.8-10.6)
[2023-04-17 08:41] VITALS: BP 137/95; PULSE 90; RESP 20; TEMP 98.4
[2023-04-17] MEDS: PSYLLIUM HUSK 100% 6 GM PACKET PO SCH (09:42)
[2023-04-17] MEDS: MULTIVITAMINS, THERA 1 EACH TAB PO SCH (09:42)
[2023-04-17] MEDS: LACTULOSE 20 GM/30 ML CUP PO SCH (09:42)
[2023-04-17] MEDS: lamoTRIgine 100 MG TAB PO SCH (09:42)
[2023-04-17] MEDS: ASCORBIC ACID 500 MG TAB PO SCH (09:43)
[2023-04-17] MEDS: TAMSULOSIN 0.4 MG CAP.ER.24H PO SCH (09:43)
[2023-04-17] MEDS: CEPHALEXIN 250 MG CAP PO SCH ×2 (09:43→13:10)
[2023-04-17] MEDS: ENOXAPARIN 80 MG/0.8 ML SYRINGE SQ SCH (09:43)
--- NOTE | 2023-04-17 09:49 | P.PN ---
Subjective Progress Note Date: 04/17/23 Principal diagnosis: Recent [id number] decompression and fusion Patient seen and examined this morning. Patient is resting comfortable in bed. Patient does report that her pain is managed on current regimen. Surgical incision to the thoracolumbar spine, edges are well approximated with juancarlos intact. No active drainage noted. New surgical dressing applied. Instructed p atient to refrain from pressure to incision. Educated on laying to her side or sitting up in chair. No acute concerns at this time. Objective - Vital Signs Vital signs: Vital Signs Temp 98.4 F 04/17/23 08:00 Pulse 90 04/17/23 08:00 Resp 20 04/17/23 08:00 BP 137/95 04/17/23 08:00 Pulse Ox 95 04/17/23 08:00 FiO2 Intake & Output 04/16/23 04/17/23 04/17/23 18:59 06:59 18:59 Intake Total 240 Output Total 600 1850 Balance -360 -1850 Weight 82.554 kg Intake: Oral 240 Output: Urine 600 1850 Other: Voiding Method Indwelling Catheter Indwelling Catheter # Voids 0 - Exam Physical Examination General: The patient is awake and alert, in no acute distress Skin: Skin is warm and dry with no obvious rashes or lesions. Surgical incision to the thoracolumbar spine, edges are well approximated with juancarlos intact. No active drainage, new dressing applied. Eye: Pupils are equal, round and reactive to light, extra-ocular movements are intact; there is normal conjunctiva bilaterally. Neck: The neck is supple, there is no tenderness and ROM intact. Cardiovascular: There is a regular rate and rhythm. No murmur, rub or gallop is appreciated. Respiratory: Lungs are clear to auscultation, respirations are non-labored, breath sounds are equal. Gastrointestinal: Soft, non-distended, non-tender abdomen. Back: There is no tenderness to palpation in the midline, paralumbar, parathoracic or buttocks region. There is no obvious deformity . Musculoskeletal: ROM limited secondary to pain and stiffness from surgical procedure. Muscle strength in all major muscle groups of bilateral upper extremities 5/5, bilateral lower extremities 4/5. Neurological: CN 2-12 intact. There are no obvious motor or sensory deficits. Movement and coordination equal and intact. Sensory exam to light touch intact C5-T1 and intact from L2-S1. Reflexes 2/4 in bilateral upper and lower extremities. Negative Hoffmans, babinski, and clonus signs. Psychiatric: Cooperative, appropriate mood & affect, normal judgment. - Labs CBC & Chem 7: 04/17/23 05:54 04/13/23 05:23 Labs: Abnormal Lab Results - Last 24 Hours (Table) 04/17/23 Range/Units 05:54 RBC 3.09 L (3.80-5.40) m/uL Hgb 9.4 L (11.4-16.0) gm/dL Hct 29.3 L (34.0-46.0) % RDW 19.6 H (11.5-15.5) % Lymphocytes # 0.6 L (1.0-4.8) k/uL Assessment and Plan Assessment: Recent surgery; Postop day 17: [id number] decompression and fusion Plan: -Appreciate tax consultant and team management. -Activity: Ambulate QID, OOB all meals, up and about, limit lifting bending twisting to less than 5 lbs. Use walker or cane if needed for stability. -Daily PT/OT, increase ambulation strength and balance. -Brace when up and about, not needed in bed or chair -Pain control: Adequate at this time, continue with current regimen -Meds: reviewed -GI ppx: senna -DVT PPX: Mechanical -Hygiene: Shower today. Maintain dressing clean and dry. Meticulous cleaning after BMs away from the incision site. Dressing to be changed tomorrow 04/17/23 or prior to discharge. -Encourage IS 10x/hr -Dispo: Patient is cleared from orthopedic standpoint for discharge when medically stable. We will continue to monitor during this stay. *I reviewed and discussed this case with my attending Dr. Flores, whom has reviewed this chart and films and is in agreement with assessment and plan of care as outlined above. I have personally seen and examined the patient, performed the documentation and the assessment and plan as written. Number of minutes spent on the visit: 20m.
--- NOTE | 2023-04-17 14:06 | P.DS ---
Providers Date of admission: 04/12/23 16:30 Expected date of discharge: 04/17/23 Attending physician: Declan Orta Consults: 04/12/23 16:30 Consult Physician Routine Consulting Provider: Bertin Flores Consult Reason/Comments: known Do you want consulting provider notified?: Yes Consult Physician Routine Consulting Provider: Megan Archibald Consult Reason/Comments: cp Do you want consulting provider notified?: Yes 04/15/23 14:43 Consult Physician Routine Consulting Provider: Angela Burdick Consult Reason/Comments: abnormal CTA chest Do you want consulting provider notified?: Yes Primary care physician: [facility] Course: Chief Complaint: High blood pressure This is a pleasant 68-year-old patient, follows with Dr. Malik Beyer. Patient on 03/31/2023 underwent lower back surgery by Dr.) Flores. Rather extensive surgery. Following that patient was discharged to [facility] for rehab. Family at the bedside. Does state that she took a fall while she was here and also possibly at the rehab place. Has a bruising on the left side in the buttock area of the beach is actually improving. Patient has been constipated because of pain medications and does have significant pain in the surgical site. Patient has been using a wheelchair and working with physical therapy. Both the family patient has been occasionally getting confused. Patient also been complaining of urine symptoms including dysuria. Found to have UTI in the ER started on IV ceftriaxone. Patient's appetite is fair. Has a bowel movement about 2 or 3 times a week. Does take linzess. History was discussed with the family at the bedside. For the input. 04/14/2023: Patient continues 10 urinary retention. 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 Flomax been increased to 0.4 mg twice a day. On IV ceftriaxone for UTI. 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 Appears rather comfortable. 04/15/2023: Because patient's d-dimer was elevated chest CTA was ordered. Patient actually had no respiratory symptoms. Results showing pulmonary embolism. Discussed with Dr. Burdick. Given the hematoma that should be some reservation. Doppler ultrasound of the lower extremity-negative. We decided to proceed with Lovenox. I also called Dr. Bertin Flores orthopedics given an update. Plan is to watch for another 24-48 hours and make sure there is no further increase it hematoma. Dr. Burdick to speak to the patient to. Earlier spoke to the social research assistant about discharge planning/rehab. Otherwise patient rather comfortable with no respiratory symptoms. Patient's confusion is resolved Total time spent today about 70 minutes with over 50 minutes of discussion. 04/16/2023: Sitting up in a chair. Oral intake fair. On subcu Lovenox. Hemoglobin remained stable. Discussed with patient. 04/17/2023: Patient started Lovenox well. Bruising of the left hip area significant leak on down. Breathing stable. 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 Patient to follow-up with Dr. Burdick. And Dr. Flores. Discussion and discharge planning more than 35 minutes Past medical history to include: Iron deficiency anemia, gastric bypass, bipolar disorder, osteoarthritis, constipation possibly from narcotics Social history: Currently in rehab. Prior history of prescription drug abuse. [place]. Has been clean since 2014. Physical examination: VITAL SIGNS: 98.4, 90, 20, 137/95, 95% room air GENERAL: Sitting up in recliner comfortable. EYES: Pupils equal. Conjunctiva normal. HEENT: External appearance of nose and ears normal, oral cavity grossly normal. NECK: JVD not raised; masses not palpable. HEART: First and second heart sounds are normal; no edema. LUNGS: Respiratory rate normal; clear to auscultation. ABDOMEN: Soft, nontender, liver spleen not palpable, no masses palpable. PSYCH: Alert and oriented x3; mood and affect normal. MUSCULOSKELETAL:No Clubbing/cyanosis;muscles-grossly intact. OA. Dressing over lumbar spine. area of bruising around the left buttock and adjoining areas-much improved INVESTIGATIONS, reviewed in the clinical context: 04/17/2023: White count 8.5 hemoglobin 9.4 platelets 393 04/16/2023: 8.6 hemoglobin 9.[address] angiogram chest: Pulmonary embolism on the right. Fusiform aneurysmal dilatation ascending aorta. Doppler ultrasound lower extremity: Negative for DVT 04/13/2023: White count 13.0 hemoglobin 8.4 platelets 340 potassium 4 creatinine 0.3 albumin 2.8 UA positive for leukoesterase, WBC Chest x-ray film personally reviewed by me-some hyperinflation EKG tracing personally reviewed by me-normal sinus rhythm Lumbar spine CT: Sigmoid diverticulosis. 20.7 cm long fluid collection underlying the posterior midline skin pupils. New inferior endplate fracture of T9 just above the fusion. Subcutaneous soft tissue hematoma spanning 15.8 cm midodrine for centimeter thick along the upper left hip. Previous labs: Hemoglobin 9.1 on April 06 and 13 on April 01 Assessment and plan: -Acute pulmonary embolism. Likely precipitated by recent surgery and decreased activity. Doppler ultrasound negative for lower extremity DVT.: New diagnosis Discussed with Dr. Burdick. subcu Lovenox. Monitor H&H and the hematoma. Discharge on Xarelto. Follow-up with Dr. Burdick outpatient. -Hematoma along the lumbar spine incision site. Patient has bruising the corresponding part outside. No bruising noted does appear to be healing. Probably best managed conservatively.: Clinically improving monitor hematoma closely as patient be started on Lovenox Dr. Flores has been informed. -Acute postprocedure blood loss anemia secondary to as expected from surgery and secondary to hematoma. Hemodynamically stable. Follow H&H. -Acute gait dysfunction following surgery. Patient getting rehab. PTOT. -Acute delirium. Episodes of confusion patient been having at [facility]. Possibly also from narcotics. Also takes medications for bipolar. : Resolved -Constipation multifactorial including from narcotics and decreased mobility. Metamucil. -Bipolar disorder Trazodone. Lamictal. Seroquel. -Hypothyroid Synthroid 88 g a day -Urinary retention with bladder scanning repeatedly above 4-500 Increase Flomax to 0.4 mg twice a day. Almendarez catheter -Acute UTI with cystitis. IV ceftriaxone. course of Ceftin. Disposition: Rehab at [facility] Plan - Discharge Summary New Discharge Prescriptions: New cefUROXime axetiL [Ceftin] 500 mg PO BID 1 Days #10 tab Psyllium Husk 100% [Metamucil Packet] 6 gm PO BID packet Ferrous Sulfate [Feosol] 325 mg PO BID #60 tab oxyCODONE HCL [Oxaydo] 5 mg PO Q6H PRN #12 tab PRN Reason: Pain Tamsulosin [Flomax] 0.4 mg PO PC-BID cap Rivaroxaban [Xarelto Starter Pack] 0 mg PO DIRECTED 30 Days #1 packet Continue traZODone HCL 150 mg PO HS hydrOXYzine pamoate [Vistaril] 25 mg PO BID PRN #60 cap PRN Reason: Anxiety lamoTRIgine [LaMICtal] 200 mg PO BID 30 Days #60 tablet Multivitamin/Iron/Folic Acid [Centrum Adults Tablet] 1 tab PO DAILY Glucosam/Patrice-Msm1/C/Cesar/Bosw [Glucosamine-Chondroitin Tablet] 1 tab PO DAILY Levothyroxine Sodium [Synthroid] 88 mcg PO DAILY QUEtiapine FUMARATE [SEROquel] 300 mg PO HS Lactulose 20 gm PO BID Ascorbic Acid [Vitamin C] 500 mg PO DAILY Discontinued oxyCODONE HCL [OxyIR] 10 mg PO Q6H PRN PRN Reason: Pain Cephalexin [Keflex] 500 mg PO TID Sennosides/Docusate Sodium [Senna-S 8.6-50 mg Tablet] 2 tab PO DAILY PRN PRN Reason: Constipation Discharge Medication List traZODone HCL 150 mg PO HS 04/10/16 [History] hydrOXYzine pamoate [Vistaril] 25 mg PO BID PRN #60 cap 02/08/18 [Rx] lamoTRIgine [LaMICtal] 200 mg PO BID 30 Days #60 tablet 02/08/18 [Rx] Glucosam/Patrice-Msm1/C/Cesar/Bosw [Glucosamine-Chondroitin Tablet] 1 tab PO DAILY 03/30/23 [History] Levothyroxine Sodium [Synthroid] 88 mcg PO DAILY 03/30/23 [History] Multivitamin/Iron/Folic Acid [Centrum Adults Tablet] 1 tab PO DAILY 03/30/23 [History] Ascorbic Acid [Vitamin C] 500 mg PO DAILY 04/12/23 [History] Lactulose 20 gm PO BID 04/12/23 [History] QUEtiapine FUMARATE [SEROquel] 300 mg PO HS 04/12/23 [History] Ferrous Sulfate [Feosol] 325 mg PO BID #60 tab 04/15/23 [Rx] Psyllium Husk 100% [Metamucil Packet] 6 gm PO BID packet 04/15/23 [Rx] Tamsulosin [Flomax] 0.4 mg PO PC-BID cap 04/15/23 [Rx] cefUROXime axetiL [Ceftin] 500 mg PO BID 1 Days #10 tab 04/15/23 [Rx] Rivaroxaban [Xarelto Starter Pack] 0 mg PO DIRECTED 30 Days #1 packet 04/17/23 [Rx] oxyCODONE HCL [Oxaydo] 5 mg PO Q6H PRN #12 tab 04/17/23 [Rx] Follow up Appointment(s)/Referral(s): Rolando Beyer MD [Primary Care Provider] - 1-2 days Bertin Flores DO [Doctor of Osteopathic Medicine] - 3 Days Angela Burdick MD [STAFF PHYSICIAN] - 4 Weeks
--- NOTE | 2023-04-17 19:35 | P.PN ---
Subjective Progress Note Date: 04/17/23 I was asked to evaluate this patient regarding abnormal computed tomography scan of the chest, as the patient underwent a CT angiogram and the patient was found to have a defect suggestive of pulmonary embolism. Note that the patient was in the hospital between 03/30/2023 and 04/04/2023. The patient underwent a T10 to pelvis decompression with fusion. She was suffering from chronic back pain secondary to lumbar spondylosis, the for a minute and central canal stenosis. The patient underwent her surgery and she was being managed on the orthopedic floor. Patient was treated with heparin for DVT prophylaxis postop. The patient had a uneventful postoperative course and she was discharged to subacute rehabilitation on postoperative day #4. Note that the patient did sustain a fall during her hospital stay and she fell on the left side while being transferred or transferring herself from the chair back to the bed. She developed a large bruise the left hip. At the time of discharge from the hospital, the patient's hemoglobin was at 9.1. The patient was readmitted to the hospital on on 04/13/2023 with altered mentation. The patient was having other issues including nonspecific chest pain, constipation related to narcotic medication intake. During her hospital stay, the patient was also treated for an underlying UTI. The patient was seen by cardiology. Her proBNP level was a 41. Troponins were 0.014. The UA was abnormal and culture was not done. The patient received IV Rocephin. Hemoglobin was 8.7 at time of admission and dropped down to 8.4. Left sided hematoma remains stable and unchanged. Normal coagulation profile. D-dimer was elevated at 4.87. Is concerned of pulmonary embolism, Doppler of the lower extremity was done that showed no evidence of any DVT and a CT angiogram that was done showed positive pulmonary embolism on the right side with clots beginning at the bifurcation extending into the right middle lobe and the lower lobes. Carotids were essentially bilateral lower lobes. Small bilateral pleural effusions and compressive atelectatic changes and possibility of a pulmonary infarct in the right lower lobe. The patient also had background emphysema, mild cardiomegaly, aneurysmal dilatation of the ascending aorta measuring 3 x 4.1 cm, postoperative changes involving the lower spine and acute/subacute T9 compression fracture. Based on that, pulmonary consultation was requested. The patient is currently on room air. She denies having any chest pain. No hemoptysis or pleurisy. Echocardiogram has not been done. On today's evaluation of 04/08/2020, the patient is doing well forspecific complaints. The patient on Lovenox. Hemoglobin is stable. The hematoma over the left hip area is essentially unchanged. The plan is to continue anticoagulation for now. Patient remains on room air oxygen. The blood work shows a hemoglobin 9.6, white cell count of 8.6. Platelets of 384. On today's evaluation of 04/17/2023, the patient is doing well and she is essentially stable on Lovenox. No worsening in her breathing status. No hem optysis. No chest pain. No pleurisy. Hematoma remains unchanged. The patient continues to have a stable hemoglobin of 9.4, the white cell cause of 8.5, itchy remains hemodynamically stable. The patient accordingly we'll get discharged on anticoagulation with xarelto and the patient will be discharged today. Objective - Vital Signs Vital signs: Vital Signs Temp 98.4 F 04/17/23 08:00 Pulse 90 04/17/23 08:00 Resp 20 04/17/23 08:00 BP 137/95 04/17/23 08:00 Pulse Ox 95 04/17/23 08:00 FiO2 Intake & Output 04/16/23 04/17/23 04/17/23 18:59 06:59 18:59 Intake Total 240 240 Output Total 600 1850 500 Balance -360 -1850 -260 Weight 82.554 kg Intake: Oral 240 240 Output: Urine 600 1850 500 Other: Voiding Method Indwelling Catheter Indwelling Catheter Indwelling Catheter # Voids 0 - Exam GENERAL EXAM: Alert, 68-year-old female, resting in bed, on room air, comfortable in no apparent distress. HEAD: Normocephalic. EYES: Normal reaction of pupils, equal size. NOSE: Clear with pink turbinates. THROAT: No erythema or exudates. NECK: No masses, no JVD. CHEST: No chest wall deformity. LUNGS: Equal air entry with no crackles, wheeze, rhonchi or dullness. CVS: S1 and S2 normal with no audible murmur, regular rhythm. ABDOMEN: No hepatosplenomegaly, normal bowel sounds, no guarding or rigidity. SPINE: No scoliosis or deformity, dressing dry and intact SKIN: No rashes, Subcutaneous soft tissue hematoma measuring 15 x 4 cm in size along the left upper hip extending to the back, and the area is known painful at this point in time. Surgical one-sided over the back is dry clean and intact CENTRAL NERVOUS SYSTEM: No focal deficits, tone is normal in all 4 extremities. EXTREMITIES: Ecchymosis over left hip There is no peripheral edema. No clubbing, no cyanosis. Peripheral pulses are intact. - Labs CBC & Chem 7: 04/17/23 05:54 04/13/23 05:23 Labs: Abnormal Lab Results - Last 24 Hours (Table) 04/17/23 Range/Units 05:54 RBC 3.09 L (3.80-5.40) m/uL Hgb 9.4 L (11.4-16.0) gm/dL Hct 29.3 L (34.0-46.0) % RDW 19.6 H (11.5-15.5) % Lymphocytes # 0.6 L (1.0-4.8) k/uL Assessment and Plan Plan: Acute bilateral pulmonary embolism, right more than left involving the right middle lobe and the lower lobes bilaterally. Clinically patient was having some atypical chest pain currently she is asymptomatic. No shortness of breath. No hypoxemia. No hemodynamic instability. Doppler lower extremities are negative. This is likely a post orthopedic surgery pulmonary embolism provoked by surgery and mobility. No previous history of DVT or pulmonary embolism. The patient is currently on anticoagulants. Lumbar pain, status post elective T10 to pelvis revision decompression and fusion. Status post fall with left hip pain, x-rays revealed no fracture, hardware intact and a CAT scan revealed a soft tissue hematoma with a left hip area and there is no significant drop in hemoglobin since her discharge from the hospital approximately 10 days ago. The hemoglobin remained stable Constipation with a stool burden involving the right hemicolon UTI Sigmoid diverticulosis Hypertension History of anxiety/depression History of bipolar disorder Former smoker Plan We'll discharge the patient on oral anticoagulants We'll obtain a follow-up CBC within the time Continue monitoring the left hip hematoma Cleared for discharge from a pulmonary standpoint, antibiotics per medical team
== END 2023-04-17 15:15 | DRG 300 ==
LOC: EC 12:12 → 6NMEDSUR 16:30
PROVIDERS: ADMIT Hospitalist; ATTEND Hospitalist
DX: T81.718A Complication of other artery following a procedure, not elsewhere classified, initial encounter (principal); D62 Acute posthemorrhagic anemia; S22.9XXA Fracture of bony thorax, part unspecified, initial encounter for closed fracture; L76.32 Postprocedural hematoma of skin and subcutaneous tissue following other procedure; N30.00 Acute cystitis without hematuria; I26.99 Other pulmonary embolism without acute cor pulmonale; Z28.310 Unvaccinated for COVID-19; F31.9 Bipolar disorder, unspecified; F41.9 Anxiety disorder, unspecified; Z83.2 Family history of diseases of the blood and blood-forming organs and certain disorders involving the immune mechanism; K59.00 Constipation, unspecified; T40.605A Adverse effect of unspecified narcotics, initial encounter; M47.816 Spondylosis without myelopathy or radiculopathy, lumbar region; S30.0XXA Contusion of lower back and pelvis, initial encounter; W19.XXXA Unspecified fall, initial encounter; I10 Essential (primary) hypertension; Z98.84 Bariatric surgery status; I71.21 Aneurysm of the ascending aorta, without rupture; S70.02XA Contusion of left hip, initial encounter; F19.11 Other psychoactive substance abuse, in remission; R26.9 Unspecified abnormalities of gait and mobility; R41.0 Disorientation, unspecified; M19.90 Unspecified osteoarthritis, unspecified site; E03.9 Hypothyroidism, unspecified; H91.90 Unspecified hearing loss, unspecified ear
CPT/HCPCS: 36415; 71045; 71275; 72131; 74176; 80053; 81001; 82140; 82550; 83605; 83690; 83735; 83880; 84100; 84484; 85025; 85379; 85610; 85730; 93005; 93306; 93970; 96361; 96374; 96375; 96376; 99285

== ENCOUNTER 2023-05-12 07:04 | Inpatient (IN) | payer MEDICARE, BC ==
[2023-05-12] MEDS ORDERED: SODIUM CHLORIDE 0.9% 500 ML 500 ML IV ONE (07:59)
[2023-05-12] MEDS: SODIUM CHLORIDE 0.9% 1,000 ML IV SCH ×2 (08:38→23:08)
[2023-05-12 08:45] LABS: Appearance,Urine Cloudy (Clear); Bacteria,Urine Moderate /hpf; Bilirubin,Urine Negative (Negative); Blood,Urine Small (Negative); Color,Urine Yellow; Glucose,Urine (UA) Negative (Negative); Hyaline Casts,Urine 4 /lpf (0-2); Ketones,Urine 1+ (Negative); Leukocyte Esterase,Urine Large (Negative); Mucus,Urine Many /hpf; Nitrite,Urine Negative (Negative); Protein,Urine 1+ (Negative); RBC,Urine 13 /hpf (0-5); Specific Gravity,Urine 1.012 (1.001-1.035); Urobilinogen,Urine <2.0 mg/dL (<2.0); WBC,Urine >182 /hpf (0-5)
--- NOTE | 2023-05-12 08:49 | XR ---
EXAMINATION TYPE: XR lumbosacral spine min 4V DATE OF EXAM: 05/12/2023 8:28 AM CLINICAL INDICATION:Female, 68 years old with history of fall, pain, recent surgery; COMPARISON: 11/06/2009 TECHNIQUE: XR lumbosacral spine min 4V - Frontal, lateral , bilateral oblique and coned in L5-S1 late ral views of the spine. FINDINGS: Extensive surgery to the spine, hardware appears intact. Discectomy at multiple levels in t he lower spine with vertebroplasty changes also present. Scattered endplate deformities and with oste ophyte formation present. No evidence for acute fracture given limitations of exam. Alignment is rela tively stable. Atherosclerosis of the arterial vasculature. IMPRESSION: Extensive postsurgical changes with hardware intact. No obvious acute process given limitations of ra diography.
[2023-05-12 08:52] LABS: Anisocytosis Slight; Basophils % (A) 0 %; Eosinophils % (A) 0 %; HCT 36.5 % (34.0-46.0); HGB 11.5 gm/dL (11.4-16.0); Hypochromasia Slight; Lymphocytes # (A) 0.2 k/uL (1.0-4.8); Lymphocytes % (A) 2 %; MCH 30.2 pg (25.0-35.0); MCHC 31.4 g/dL (31.0-37.0); MCV 96.1 fL (80.0-100.0); Mean Platelet Volume 7.4; Monocytes # (A) 0.7 k/uL (0-1.0); Monocytes % (A) 5 %; Neutrophils # (A) 12.7 k/uL (1.3-7.7); Neutrophils % (A) 92 %; Platelet Count 389 k/uL (150-450); RBC 3.79 m/uL (3.80-5.40); RDW 16.6 % (11.5-15.5); WBC 13.7 k/uL (3.8-10.6)
[2023-05-12 09:11] LABS: ALT 12 U/L (4-34); AST 22 U/L (14-36); African American GFR (CKD) >90 (>60 ml/min/1.73 sqM); Albumin 3.2 g/dL (3.5-5.0); Alkaline Phosphatase 253 U/L (38-126); Anion Gap 10 mmol/L; Blood Urea Nitrogen 8 mg/dL (7-17); Calcium 9.7 mg/dL (8.4-10.2); Carbon Dioxide 21 mmol/L (22-30); Chloride 101 mmol/L (98-107); Creatine Kinase 71 U/L (30-135); Glucose 142 mg/dL (74-99); Magnesium 1.6 mg/dL (1.6-2.3); Non-African American GFR(CKD) >90 (>60 ml/min/1.73 sqM); Potassium 3.9 mmol/L (3.5-5.1); Sodium 132 mmol/L (137-145); Total Bilirubin 0.6 mg/dL (0.2-1.3); Total Protein 6.1 g/dL (6.3-8.2)
--- NOTE | 2023-05-12 09:20 | XR ---
EXAMINATION TYPE: XR chest 2V DATE OF EXAM: 05/12/2023 COMPARISON: 04/12/2023 HISTORY: 68-year-old female with weakness and fall TECHNIQUE: PA and lateral views FINDINGS: Patient is rotated towards the right altering the normal cardiac and mediastinal contours. Old right- sided rib fracture deformity. Heart borderline in size. Strandy atelectasis lower lungs. Hyperinflati on. No consolidation or pleural effusion. Thoracolumbar fusion hardware with essentially the mid thor acic kyphosis. IMPRESSION: Limited, rotated exam. COPD. Strandy basilar atelectasis. No definite acute process.
--- NOTE | 2023-05-12 10:01 | ED ---
Fall HPI - General Chief Complaint: Fall Stated Complaint: Back pain Time Seen by Provider: 05/12/23 07:39 Source: patient, EMS, RN notes reviewed Mode of arrival: EMS Limitations: no limitations - History of Present Illness Initial Comments: 68-year-old female presents emergency department with chief complaint of falls, low back pain, weakness. He states she had surgery in March on her back by Dr. lFores. Patient states that she did not go to rehab after her surgery. She states she has been having falls frequently she fell again last night laying on the ground for several hours. She states that she woke her son up to help her. She states she is unable to ambulate by herself because she has been so weak. She denies any reports of fevers no chest pain no head injury no loss conscious. - Related Data Home Medications Medication Instructions Recorded Confirmed traZODone HCL 150 mg PO HS 04/10/16 05/12/23 Levothyroxine Sodium [Synthroid] 88 mcg PO DAILY 03/30/23 05/12/23 QUEtiapine FUMARATE [SEROquel] 300 mg PO HS 04/12/23 05/12/23 Cyclobenzaprine [Flexeril] 5 mg PO TID PRN 05/12/23 05/12/23 Ergocalciferol [Vitamin D2 (1250 1,250 mcg PO DIRECTED 05/12/23 05/12/23 Mcg = 70960 Iu)] Furosemide [Lasix] 20 mg PO DAILY PRN 05/12/23 05/12/23 Linaclotide [Linzess] 145 mcg PO DAILY PRN 05/12/23 05/12/23 Sertraline [Zoloft] 100 mg PO DAILY 05/12/23 05/12/23 carvediloL [Coreg] 3.125 mg PO BID 05/12/23 05/12/23 hydrOXYzine pamoate [Vistaril] 25 - 50 mg PO BID PRN 05/12/23 05/12/23 oxyCODONE HCL/ACETAMINOPHEN 1 tab PO Q6HR PRN 05/12/23 05/12/23 [Percocet 10-325 mg] Previous Rx's Medication Instructions Recorded lamoTRIgine [LaMICtal] 200 mg PO BID 30 Days #60 tablet 02/08/18 Allergies Allergy/AdvReac Type Severity Reaction Status Date / Time No Known Allergies Allergy Verified 05/12/23 10:19 Review of Systems ROS Statement: Those systems with pertinent positive or pertinent negative responses have been documented in the HPI. ROS Other: All systems not noted in ROS Statement are negative. Past Medical History Past Medical History: No Reported History Additional Past Medical History / Comment(s): IRON DEFICIENCY ANEMIA. History of Any Multi-Drug Resistant Organisms: None Reported Past Surgical History: Back Surgery, Bariatric Surgery, Orthopedic Surgery Additional Past Surgical History / Comment(s): right shoulder, left shoulder, gastric bypass Past Anesthesia/Blood Transfusion Reactions: No Reported Reaction Past Psychological History: Anxiety, Bipolar, Depression Smoking Status: Never smoker Past Alcohol Use History: Abuse Past Drug Use History: Prescription Drug Abuse - Past Family History Mother Family Medical History: No Reported History Sister(s) Family Medical History: Pulmonary Embolus General Exam Limitations: no limitations General appearance: alert, in no apparent distress Head exam: Present: atraumatic, normocephalic, normal inspection Eye exam: Present: normal appearance, PERRL, EOMI. Absent: scleral icterus, conjunctival injection, periorbital swelling Respiratory exam: Present: normal lung sounds bilaterally. Absent: respiratory distress, wheezes, rales, rhonchi, stridor Cardiovascular Exam: Present: normal rhythm, tachycardia, normal heart sounds. Absent: systolic murmur, diastolic murmur, rubs, gallop, clicks GI/Abdominal exam: Present: soft, normal bowel sounds. Absent: distended, tenderness, guarding, rebound, rigid Extremities exam: Present: other (Lower extremity strength equal bilaterally neurovascular intact) Back exam: Absent: normal inspection (Healed incision lumbar) Neurological exam: Present: alert, oriented X3, CN II-XII intact, reflexes normal. Absent: motor sensory deficit Skin exam: Present: warm, dry, intact, normal color. Absent: rash Course Vital Signs 05/12/23 05/12/23 07:07 10:52 Temperature 98.7 F 98.2 F Pulse Rate 108 H 89 Respiratory 20 18 Rate Blood Pressure 152/82 159/98 O2 Sat by Pulse 94 L 96 Oximetry Medical Decision Making - Medical Decision Making Was pt. sent in by a medical professional or institution (, PA, RAILROAD OPERATING ENGINEER, urgent care, hospital, or [facility]...) When possible be specific @ -No Did you speak to anyone other than the patient for history (EMS, parent, family, police, friend...)? What history was obtained from this source @ -No Did you review nursing and triage notes (agree or disagree)? Why? @ -I reviewed and agree with nursing and triage notes Were old charts reviewed (outside hosp., previous admission, EMS record, old EKG, old radiological studies, urgent care reports/EKG's, [facility] records)? Report findings @ -Reviewed recent inpatient surgery, laboratory studies Differential Diagnosis (chest pain, altered mental status, abdominal pain women, abdominal pain men, vaginal bleeding, weakness, fever, dyspnea, syncope, headache, dizziness, GI bleed, back pain, seizure, CVA, palpatations, mental health, musculoskeletal)? @ -[Differential Weakness: Hypoglycemia, shock, sepsis, hyponatremia, anemia, infection, MA, ETOH, adverse medicine reaction, overdose, stroke, this is not meant to be an all-inclusive list. EKG interpreted by me (3pts min.). @ -None X-rays interpreted by me (1pt min.). @ -[X-ray lumbar spine showing postsurgical changes no acute fracture X-ray 2 view chest no acute [facility] CT interpreted by me (1pt min.). @ -[None done U/S interpreted by me (1pt. min.). @ -None done What testing was considered but not performed or refused? (CT, X-rays, U/S, labs)? Why? @ -None What meds were considered but not given or refused? Why? @ -None Did you discuss the management of the patient with other professionals (lidia white i.e. , PA, RAILROAD OPERATING ENGINEER, lab, RT, psych nurse, social media intern, transfer and pumphouse operator, teacher, commanding officer traffic division, continuous pillowcase cutter)? Give summary @ -[Dr. Orta for admission for rehab placement Was smoking cessation discussed for >3mins.? @ -No Was critical care preformed (if so, how long)? @ -No Were there social determinants of health that impacted care today? How? (Homelessness, low income, unemployed, alcoholism, drug addiction, transportation, low edu. Level, literacy, decrease access to med. care, custodial, rehab)? @ -No Was there de-escalation of care discussed even if they declined (Discuss DNR or withdrawal of care, Hospice)? DNR status @ -No What co-morbidities impacted this encounter? (DM, HTN, Smoking, COPD, CAD, Cancer, CVA, ARF, Chemo, Hep., AIDS, mental health diagnosis, sleep apnea, morbid obesity)? @ -None Was patient admitted / discharged? Hospital course, mention meds given and route, prescriptions, significant lab abnormalities, going to OR and other pertinent info. @ -Admitted patient's had multiple falls since her surgery she had evidence of urinary tract infection unable to care for self at home. She needs excessive assistance with ambulation and will be admitted for rehab Undiagnosed new problem with uncertain prognosis? @ -No Drug Therapy requiring intensive monitoring for toxicity (Heparin, Nitro, Insulin, Cardizem)? @ -No Were any procedures done? @ -No Diagnosis/symptom? @ -Multiple falls, weakness, UTI, status post back surgery Acute, or Chronic, or Acute on Chronic? @ -[Acute Uncomplicated (without systemic symptoms) or Complicated (systemic symptoms)? @ -Complicated Side effects of treatment? @ -No Exacerbation, Progression, or Severe Exacerbation? @ -No Poses a threat to life or bodily function? How? (Chest pain, USA, MA, pneumonia, PE, COPD, DKA, ARF, appy, cholecystitis, CVA, Diverticulitis, Homicidal, Suicidal, threat to staff... and all critical care pts) @ -No - Lab Data Result diagrams: 05/12/23 08:34 05/12/23 08:34 Lab Results 05/12/23 05/12/23 05/12/23 Range/Units 07:50 08:34 08:34 WBC 13.7 H (3.8-10.6) k/uL RBC 3.79 L (3.80-5.40) m/uL Hgb 11.5 (11.4-16.0) gm/dL Hct 36.5 (34.0-46.0) % MCV 96.1 (80.0-100.0) fL MCH 30.2 (25.0-35.0) pg MCHC 31.4 (31.0-37.0) g/dL RDW 16.6 H (11.5-15.5) % Plt Count 389 (150-450) k/uL MPV 7.4 Neutrophils % 92 % Lymphocytes % 2 % Monocytes % 5 % Eosinophils % 0 % Basophils % 0 % Neutrophils # 12.7 H (1.3-7.7) k/uL Lymphocytes # 0.2 L (1.0-4.8) k/uL Monocytes # 0.7 (0-1.0) k/uL Eosinophils # 0.0 (0-0.7) k/uL Basophils # 0.0 (0-0.2) k/uL Hypochromasia Slight Anisocytosis Slight Sodium 132 L (137-145) mmol/L Potassium 3.9 (3.5-5.1) mmol/L Chloride 101 (98-107) mmol/L Carbon Dioxide 21 L (22-30) mmol/L Anion Gap 10 mmol/L BUN 8 (7-17) mg/dL Creatinine 0.26 L (0.52-1.04) mg/dL Est GFR (CKD-EPI)AfAm >90 (>60 ml/min/1.73 sqM) Est GFR (CKD-EPI)NonAf >90 (>60 ml/min/1.73 sqM) Glucose 142 H (74-99) mg/dL Plasma Lactic Acid Manuel (0.7-2.0) mmol/L Calcium 9.7 (8.4-10.2) mg/dL Magnesium 1.6 (1.6-2.3) mg/dL Total Bilirubin 0.6 (0.2-1.3) mg/dL AST 22 (14-36) U/L ALT 12 (4-34) U/L Alkaline Phosphatase 253 H (38-126) U/L Creatine Kinase 71 (30-135) U/L Total Protein 6.1 L (6.3-8.2) g/dL Albumin 3.2 L (3.5-5.0) g/dL Urine Color Yellow Urine Appearance Cloudy H (Clear) Urine pH 6.0 (5.0-8.0) Ur Specific [place] 1.012 (1.001-1.035) Urine Protein 1+ H (Negative) Urine Glucose (UA) Negative (Negative) Urine Ketones 1+ H (Negative) Urine Blood Small H (Negative) Urine Nitrite Negative (Negative) Urine Bilirubin Negative (Negative) Urine Urobilinogen <2.0 (<2.0) mg/dL Ur Leukocyte Esterase Large H (Negative) Urine RBC 13 H (0-5) /hpf Urine WBC >182 H (0-5) /hpf Urine Bacteria Moderate H (None) /hpf Hyaline Casts 4 H (0-2) /lpf Urine Mucus Many H (None) /hpf 05/12/23 Range/Units 08:34 WBC (3.8-10.6) k/uL RBC (3.80-5.40) m/uL Hgb (11.4-16.0) gm/dL Hct (34.0-46.0) % MCV (80.0-100.0) fL MCH (25.0-35.0) pg MCHC (31.0-37.0) g/dL RDW (11.5-15.5) % Plt Count (150-450) k/uL MPV Neutrophils % % Lymphocytes % % Monocytes % % Eosinophils % % Basophils % % Neutrophils # (1.3-7.7) k/uL Lymphocytes # (1.0-4.8) k/uL Monocytes # (0-1.0) k/uL Eosinophils # (0-0.7) k/uL Basophils # (0-0.2) k/uL Hypochromasia Anisocytosis Sodium (137-145) mmol/L Potassium (3.5-5.1) mmol/L Chloride (98-107) mmol/L Carbon Dioxide (22-30) mmol/L Anion Gap mmol/L BUN (7-17) mg/dL Creatinine (0.52-1.04) mg/dL Est GFR (CKD-EPI)AfAm (>60 ml/min/1.73 sqM) Est GFR (CKD-EPI)NonAf (>60 ml/min/1.73 sqM) Glucose (74-99) mg/dL Plasma Lactic Acid Manuel 1.2 (0.7-2.0) mmol/L Calcium (8.4-10.2) mg/dL Magnesium (1.6-2.3) mg/dL Total Bilirubin (0.2-1.3) mg/dL AST (14-36) U/L ALT (4-34) U/L Alkaline Phosphatase (38-126) U/L Creatine Kinase (30-135) U/L Total Protein (6.3-8.2) g/dL Albumin (3.5-5.0) g/dL Urine Color Urine Appearance (Clear) Urine pH (5.0-8.0) Ur Specific [place] (1.001-1.035) Urine Protein (Negative) Urine Glucose (UA) (Negative) Urine Ketones (Negative) Urine Blood (Negative) Urine Nitrite (Negative) Urine Bilirubin (Negative) Urine Urobilinogen (<2.0) mg/dL Ur Leukocyte Esterase (Negative) Urine RBC (0-5) /hpf Urine WBC (0-5) /hpf Urine Bacteria (None) /hpf Hyaline Casts (0-2) /lpf Urine Mucus (None) /hpf Disposition Clinical Impression: Multiple falls, History of back surgery, Weakness, UTI (urinary tract infection) Disposition: ADMITTED IP TO THIS HOSP Condition: Fair Time of Disposition: 10:21
[2023-05-12] MEDS ORDERED: NALOXONE 0.4 MG/ML 1 ML VIAL IV PRN (11:04)
[2023-05-12] MEDS ORDERED: FUROSEMIDE 20 MG TAB PO PRN (11:05)
[2023-05-12] MEDS ORDERED: PATIENT'S OWN (Linaclotide [Linzess] 145 MCG Capsule) PO PRN (11:05)
[2023-05-12] MEDS: oxyCODONE-APAP 10-325MG 1 EACH TAB PO PRN ×2 (14:25→23:54)
[2023-05-12] MEDS: ONDANSETRON 4 MG/2 ML VIAL IVP PRN ×2 (14:28→23:03)
[2023-05-12] MEDS ORDERED: SENNOSIDES 8.6 MG TAB PO PRN (15:12)
--- NOTE | 2023-05-12 15:14 | P.CNOR ---
History of Present Illness - [facility] Consult date: 05/12/23 Requesting physician: Bobby Hutton Consult reason: other (Status post back surgery, multiple falls) History of present illness: Patient is a 68-year-old female who presented the emergency department this morning due to history of several falls over the past couple weeks and weakness in the lower extremities and low back pain. Orthopedics was consulted due to recent history of spine surgery. Dr. Flores performed revision [id number] decompression fusion surgery on 03/31/2023. Patient was seen at bedside this afternoon in the emergency department lying semirecumbent position. Patient says about 2 weeks ago she was at home doing well and recovery from surgery when her dog ran into her and she fell landing on her side. Patient says over the past couple weeks she has had a couple other falls which she cannot recall the specifics. Patient says the first few weeks after recovery she was doing well and she did see Dr. Flores in office at the first follow up. Since the fall couple weeks ago she says she has had increased stiffness the low back as well as some generalized weakness throughout her lower extremities. Patient says her son was at home and they decided it was best to come into the hospital due to her recent falls and weakness. Patient states during the fall she never cause losing consciousness or hitting her head. Patient denies any lower extremity radiculopathy. Patient states most the pain is localized to the midlow back at this time. Patient says she is having a difficult time getting out of bed under her own power. She says she has been using walker regularly for ambulation. Patient denies any issues with loss of bowel/bladder control. Patient denies saddle anesthesia. Patient denies chest pain, fever, shortness of breath, naus ea, vomiting, change in vision, loss of bowel/bladder control. Past Medical History Past Medical History: No Reported History Additional Past Medical History / Comment(s): IRON DEFICIENCY ANEMIA. History of Any Multi-Drug Resistant Organisms: None Reported Past Surgical History: Back Surgery, Bariatric Surgery, Orthopedic Surgery Additional Past Surgical History / Comment(s): right shoulder, left shoulder, gastric bypass Past Anesthesia/Blood Transfusion Reactions: No Reported Reaction Past Psychological History: Anxiety, Bipolar, Depression Smoking Status: Never smoker Past Alcohol Use History: Abuse Past Drug Use History: Prescription Drug Abuse - Past Family History Mother Family Medical History: No Reported History Sister(s) Family Medical History: Pulmonary Embolus Medications and Allergies Home Medications Medication Instructions Recorded Confirmed Type traZODone HCL 150 mg PO HS 04/10/16 05/12/23 History lamoTRIgine [LaMICtal] 200 mg PO BID 30 Days #60 tablet 02/08/18 05/12/23 Rx Levothyroxine Sodium [Synthroid] 88 mcg PO DAILY 03/30/23 05/12/23 History QUEtiapine FUMARATE [SEROquel] 300 mg PO HS 04/12/23 05/12/23 History Cyclobenzaprine [Flexeril] 5 mg PO TID PRN 05/12/23 05/12/23 History Ergocalciferol [Vitamin D2 (1250 1,250 mcg PO DIRECTED 05/12/23 05/12/23 History Mcg = 02019 Iu)] Furosemide [Lasix] 20 mg PO DAILY PRN 05/12/23 05/12/23 History Linaclotide [Linzess] 145 mcg PO DAILY PRN 05/12/23 05/12/23 History Sertraline [Zoloft] 100 mg PO DAILY 05/12/23 05/12/23 History carvediloL [Coreg] 3.125 mg PO BID 05/12/23 05/12/23 History hydrOXYzine pamoate [Vistaril] 25 - 50 mg PO BID PRN 05/12/23 05/12/23 History oxyCODONE HCL/ACETAMINOPHEN 1 tab PO Q6HR PRN 05/12/23 05/12/23 History [Percocet 10-325 mg] Allergies Allergy/AdvReac Type Severity Reaction Status Date / Time No Known Allergies Allergy Verified 05/12/23 10:19 Physical Examination Inspection: Incision appears to be well-healed on thoraciclumbar spine. Negative for any drainage. Negative for any fluctuance/periods. Negative for any open fractures, significant erythema/ecchymosis. Sensation: Equal, symmetric, by intact of the upper and lower extremities. Palpation: Moderate tenderness to palpation diffusely throughout the lower thoracic through lumbar spine. There is fair amount of tenderness patient and the bilateral SI joints. NTTP throughout rest exam. Range of motion: Patient does have limited range of motion throughout the left upper extremity, but this has been ongoing. Full range of motion throughout the right upper extremity. Patient does have good range of motion throughout bilateral lower extremity is in knee flexion extension and ankle dorsiflexion/plantarflexion. There is some limited range of motion in the bilateral hips and flexion/extension secondary to referred pain and low back. Motor: 4/5 in RUE. 4-/5 in bilateral lower extremities. Neurovascular: Radial pulses intact, 2+ bilaterally. Cap refill under 3 seconds in digits of UE Special tests: Negative Homans bilaterally. Negative Chucky. Negative clonus. Results - Labs Labs: Abnormal Lab Results - Last 24 Hours (Table) 05/12/23 05/12/23 05/12/23 Range/Units 07:50 08:34 08:34 WBC 13.7 H (3.8-10.6) k/uL RBC 3.79 L (3.80-5.40) m/uL RDW 16.6 H (11.5-15.5) % Neutrophils # 12.7 H (1.3-7.7) k/uL Lymphocytes # 0.2 L (1.0-4.8) k/uL Sodium 132 L (137-145) mmol/L Carbon Dioxide 21 L (22-30) mmol/L Creatinine 0.26 L (0.52-1.04) mg/dL Glucose 142 H (74-99) mg/dL Alkaline Phosphatase 253 H (38-126) U/L Total Protein 6.1 L (6.3-8.2) g/dL Albumin 3.2 L (3.5-5.0) g/dL Urine Appearance Cloudy H (Clear) Urine Protein 1+ H (Negative) Urine Ketones 1+ H (Negative) Urine Blood Small H (Negative) Ur Leukocyte Esterase Large H (Negative) Urine RBC 13 H (0-5) /hpf Urine WBC >182 H (0-5) /hpf Urine Bacteria Moderate H (None) /hpf Hyaline Casts 4 H (0-2) /lpf Urine Mucus Many H (None) /hpf H & H 05/12/23 Range/Units 08:34 Hgb 11.5 (11.4-16.0) gm/dL Hct 36.5 (34.0-46.0) % Result Diagrams: 05/12/23 08:34 05/12/23 08:34 - Diagnostic results Lumbar AP/lateral x-ray: report reviewed, image reviewed (X-ray lumbar spine does reveal screws and rods appear to be intact this time. Negative for any fractures) Assessment and Plan Assessment: 1. Midlow back pain; lower extremity weakness; history of recent revision T10 to pelvis decompression fusion Plan: 1. Midlow back pain; lower extremity weakness; history of recent revision T10 to pelvis decompression fusion - x-ray lumbar spine does reveal rods and screws appear to be well aligned and intact at this time. Negative for any fractures. Further imaging may be needed for better eval. At this time we are not recom mending any emergent/urgent orthopedic surgical intervention. Patient will likely benefit from daily PT/OT as well as pain medication. Patient may benefit from course of IV steroids as well. Weightbearing as tolerated with walker and assistance. Patient likely will need to be placed for subacute rehab due to history of falls at home. Possibly order computed tomography scan of lumbar spine for further evaluation of hardware. We will continue to follow patient in [facility]. Appreciate medical another specialty recommendations. 2. Appreciate medical management 3. Pain management- percocet; tylenol 4. DVT prophylaxis - mechanical 5. GI prophylaxis - senna 6. PT/OT - weightbearing as tolerated with walker and assistance as needed 7. Encourage incentive spirometer use 8. Appreciate consult Time with Patient: Less than 30
--- NOTE | 2023-05-12 17:29 | CT ---
EXAMINATION TYPE: CT thor lumbar spine wo con CT DLP: 1658.6 mGycm, Automated exposure control for dose reduction was used. DATE OF EXAM: 05/12/2023 5:17 PM CLINICAL INDICATION:Female, 68 years old with history of back pain, hx of falls, hx of surgery; back pain, hx of falls, hx of surgery COMPARISON: Same day radiographs. CT 03/31/2023 TECHNIQUE: Axial images of the thoracic and lumbar spine were obtained without contrast. Coronal and sagittal reformats were performed. 3-D reformats of the bones were created on a separate workstation and submitted for review. CT Contrast: Contrast used: mL of , none. Oral contrast used: none. FINDINGS: Multilevel degeneration changes are present throughout the spine with osteophyte formation disc space narrowing and facet arthropathy. Surgical changes in the lower spine are present. Hardware appears i n appropriate position. No evidence for hardware failure. The visualized portion of the surgical bed in the back demonstrates suspected postop fluid collection with peripheral calcification measuring at least 6.0 cm in transverse dimension. Its difficult to see this due to the extensive fixation hardwa re which extends from T10 to S1. Vertebroplasty changes are seen at multiple levels. Additionally the re is discectomy changes at multiple levels. New from 03/31/2023 is a T9 vertebral body compression fracture with near complete height loss centra lly. There is mild retropulsion up to 5 mm. [id number] spinal canal stenosis. Neural foramen ap pear patent Throughout the spine. Evaluation of the spine is grossly patent given limitations of exam. The neural foramen are also grossly patent where visualized. IMPRESSION: 1. New from 03/31/2023 is a T9 vertebral body compression fracture with near complete height loss ce ntrally. There is mild retropulsion up to 5 mm. [id number] spinal canal stenosis. Neural forame n appear patent 2. Extensive postsurgical changes with hardware intact. 3. Moderate to severe degeneration changes of the spine.
[2023-05-12] MEDS: carvediloL 3.125 MG TAB PO SCH (18:20)
[2023-05-12] MEDS: CYCLOBENZAPRINE 5 MG TAB PO SCH ×2 (18:20→23:13)
[2023-05-12] MEDS: QUEtiapine 100 MG TAB PO SCH (23:10)
[2023-05-12] MEDS: traZODone HCL 50 MG TAB PO SCH (23:11)
[2023-05-12] MEDS: lamoTRIgine 100 MG TAB PO SCH (23:13)
[2023-05-13] MEDS: LEVOTHYROXINE 88 MCG TAB PO SCH (05:44)
[2023-05-13] MEDS: CYCLOBENZAPRINE 5 MG TAB PO SCH ×3 (08:13→22:29)
[2023-05-13] MEDS: carvediloL 3.125 MG TAB PO SCH ×2 (08:13→17:35)
[2023-05-13] MEDS: SERTRALINE 100 MG TAB PO SCH (08:13)
[2023-05-13] MEDS: lamoTRIgine 100 MG TAB PO SCH ×2 (08:13→20:40)
[2023-05-13] MEDS: SODIUM CHLORIDE 0.9% 1,000 ML IV SCH (08:14)
[2023-05-13] MEDS ORDERED: CYCLOBENZAPRINE 5 MG TAB PO PRN (11:01)
--- NOTE | 2023-05-13 11:10 | P.PN ---
Subjective Progress Note Date: 05/13/23 Principal diagnosis: Multiple falls Bilateral lower extremity weakness Patient seen and examined this morning. Patient is resting comfortably in bed. She is mildly confused with flight of discussion when she responds to questions of her care at home. She denies any pain or discomfort in her back. She does state she has bilateral lower extremity weakness. She denies any numb ness/tingling to lower extremities. She does state she has a walker an cane at home that she does not utilize all the time. Patient verbalizes that she needs rehab. She has been sent to [facility] twice from prior hospitalization visits and she signs herself out to go home. Patient will benefit from [facility] at discharge to regain her strength and mobilization. Patient is cleared from an Orthopedic standpoint for discharge. She may follow up in our office outpatient. Objective - Vital Signs Vital signs: Vital Signs Temp 98.1 F 05/13/23 00:30 Pulse 93 05/13/23 00:30 Resp 18 05/13/23 00:30 BP 156/88 05/13/23 00:30 Pulse Ox 93 L 05/13/23 00:30 FiO2 Intake & Output 05/12/23 05/13/23 05/13/23 18:59 06:59 18:59 Output Total 250 Balance -250 Weight 77.111 kg Output: Urine 250 Other: Voiding Method Bedside Commode # Voids 1 - Exam Physical Examination General: The patient is awake and alert, in no acute distress Skin: Skin is warm and dry with no obvious rashes or lesions. Well healing throacolumbar incision. Eye: Pupils are equal, round and reactive to light, extra-ocular movements are intact; there is normal conjunctiva bilaterally. Neck: The neck is supple, there is no tenderness and ROM intact. Cardiovascular: There is a regular rate and rhythm. No murmur, rub or gallop is appreciated. Respiratory: Lungs are clear to auscultation, respirations are non-labored, breath sounds are equal. Gastrointestinal: Soft, non-distended, non-tender abdomen. Back: There is no tenderness to palpation in the midline, paralumbar, parathoracic or buttocks region. There is no obvious deformity . Musculoskeletal: ROM limited secondary to pain and stiffness from surgical procedure. Muscle strength in all major muscle groups of bilateral upper extremities 5/5, bilateral lower extremities 4/5. Neurological: CN 2-12 intact. There are no obvious motor or sensory deficits. Movement and coordination equal and intact. Sensory exam to light touch intact C5-T1 and intact from L2-S1. Reflexes 2/4 in bilateral upper and lower extremities. Negative Hoffmans, babinski, and clonus signs. Psychiatric: Cooperative, appropriate mood & affect, normal judgment. - Labs CBC & Chem 7: 05/12/23 08:34 05/12/23 08:34 Labs: Abnormal Lab Results - Last 24 Hours (Table) 05/12/23 05/12/23 05/12/23 Range/Units 07:50 08:34 08:34 WBC 13.7 H (3.8-10.6) k/uL RBC 3.79 L (3.80-5.40) m/uL RDW 16.6 H (11.5-15.5) % Neutrophils # 12.7 H (1.3-7.7) k/uL Lymphocytes # 0.2 L (1.0-4.8) k/uL Sodium 132 L (137-145) mmol/L Carbon Dioxide 21 L (22-30) mmol/L Creatinine 0.26 L (0.52-1.04) mg/dL Glucose 142 H (74-99) mg/dL Alkaline Phosphatase 253 H (38-126) U/L Total Protein 6.1 L (6.3-8.2) g/dL Albumin 3.2 L (3.5-5.0) g/dL Urine Appearance Cloudy H (Clear) Urine Protein 1+ H (Negative) Urine Ketones 1+ H (Negative) Urine Blood Small H (Negative) Ur Leukocyte Esterase Large H (Negative) Urine RBC 13 H (0-5) /hpf Urine WBC >182 H (0-5) /hpf Urine Bacteria Moderate H (None) /hpf Hyaline Casts 4 H (0-2) /lpf Urine Mucus Many H (None) /hpf Assessment and Plan Assessment: Multiple falls Bilateral lower extremity weakness s/p revision [id number] decompression fusion surgery on 03/31/2023 Plan: At this time we do not recommend any orthopedic surgical intervention. Patient may follow-up with Dr. Flores office for further evaluation as needed. Orthopedics is signing off at this time. Please do not hesitate to contact us for any further questions. 2. Appreciate medical management 3. Pain management - Tylenol 4. GI prophylaxis - senna 5. DVT prophylaxis - mechanical 6. PT/OT - weightbearing as tolerated with a walker as needed. 7. Appreciate consult, patient will benefit from [facility] at discharge.
[2023-05-13] MEDS ORDERED: ENOXAPARIN 40 MG/0.4 ML SYRINGE SQ SCH (11:15)
--- NOTE | 2023-05-13 14:15 | CT ---
EXAMINATION TYPE: CT brain wo con DATE OF EXAM: 05/13/2023 COMPARISON: 1220 06/10/2015 INDICATION: ams DLP: 1197.2 mGycm, Automated exposure control for dose reduction was used. CONTRAST: None CT of the brain is performed utilizing 3 mm thick sections through the posterior fossa and 3 mm thick sections through the remaining calvarium. Study is performed within 24 hours of arrival to the hosp ital. No abnormal hyperdensity is present to suggest an acute intracranial hemorrhage. No mass lesion is evident. No acute infarcts are evident. Ventricles and sulci are appropriate for the patient age. Paranasal sinuses and mastoid air cells within the [id number] are clear. IMPRESSION: 1. No acute intracranial process. Follow-up MRI can be performed as clinically indicated.
[2023-05-13] MEDS: oxyCODONE-APAP 10-325MG 1 EACH TAB PO PRN ×2 (14:37→20:39)
--- NOTE | 2023-05-13 15:17 | P.HPIM ---
History of Present Illness H&P Date: 05/13/23 Chief Complaint: Falls This is a pleasant 68-year-old patient, follows with Dr. Malik Beyer. Patient on 03/31/2023 underwent lower back surgery by Dr.) Flores. Rather extensive surgery. Following that patient was discharged to [facility] for rehab. Patient then readmitted from April 13 through April 17. Was found to have pulmonary embolism. Was this time discharged to [facility]. Patient has been home for few days. Been having falls. Some low back pain. This morning patient was on the toilet and she fell down hitting the head. Did not pass out. Cervical collar was placed. CT scans of brain unremarkable. She been having some weakness of the lower extremity. Apparently at home the dog ran into her and she had fallen on her left side. She is also having trouble getting out of bed. Has been using a walker. No change in bowel or urine pattern. No fever or chills. Orthopedics/Dr. Flores was consulted I spoke to patient's son Jeroniom over the phone. Patient stopped taking her Xarelto since she left [facility]. She has signed herself out AMA within 24 hours. Left AMA. Patient be resumed Xarelto for now. Review of systems: GEN.: Tired EYES: None HEENT: None NECK: None RESPIRATORY: None CARDIOVASCULAR: None GASTROINTESTINAL: None GENITOURINARY: None MUSCULOSKELETAL: As above LYMPHATICS: None HEMATOLOGICAL: None PSYCHIATRY: Bit forgetful e NEUROLOGICAL: N use a walker e Past medical history to include: Iron deficiency anemia, gastric bypass, bipolar disorder, osteoarthritis, constipation possibly from narcotics Social history: Recently in rehab. Prior history of prescription drug abuse. [place]. Has been clean since 2014. Son lives at home with her Physical examination: VITAL SIGNS: 97.9, 97, 18, 1 4684, 91% room air GENERAL: Lying in bed, comfortable e. EYES: Pupils equal. Conjunctiva normal. HEENT: External appearance of nose and ears normal, oral cavity grossly normal. NECK: Cervical collar HEART: First and second heart sounds are normal; no edema. LUNGS: Respiratory rate normal; clear to auscultation. ABDOMEN: Soft, nontender, liver spleen not palpable, no masses palpable. PSYCH: Alert and oriented x3; mood and affect normal. MUSCULOSKELETAL:No Clubbing/cyanosis;muscles-grossly intact. OA. NEUROLOGICAL: Cranial nerves grossly intact. Good manager diesel in both the arms. Able to move both the lower extremity. INVESTIGATIONS, reviewed in the clinical context: CT brain: Negative for fracture May 12, 2023: White count 3.7 hemoglobin 11.5 platelets are 87 sodium 132 potassium 3.9 BUN 8 creatinine 0.26 UA: Leukoesterase positive WBC 182 bacteria moderate Chest x-ray film personally reviewed by me-unremarkable CT scan thoracolumbar spine: T9 vertebral body compression fracture with near complete height loss centrally new from March 31. Postsurgical changes. Previous labs: Hemoglobin 9.1 on April 06 and 13 on April 01 Assessment and plan: -This is a patient with lumbar surgery in March with Dr. Flores. Did better after surgery. Did go to rehab. Patient had a fall at home. 2 more falls after that. Some increased low back pain and weakness in the lower extremity. Consult Dr. Flores -Acute T9 vertebral body compression fracture which is reported to be new from March 31. Patient had a fall 2 weeks ago when her dog and ran into her at home. -Acute pulmonary embolism. March 2023 l Apparently patient not been taking his Xarelto for at least last 2-1/2 weeks. Will resume the same. - gait dysfunction following surgery. Patient did get rehab Does use a walker -Bipolar disorder Trazodone. Lamictal. Seroquel. -Hypothyroid Synthroid 88 g a day -Mild hyponatremia Increase oral intake -Acute UTI with cystitis. Oral Keflex Home medication resumed. IV fluids. CT scan of the brain negative for any fracture. Has a cervical collar. Follow-up with orthopedics. Discussed with patient. Past Medical History Past Medical History: No Reported History Additional Past Medical History / Comment(s): IRON DEFICIENCY ANEMIA. History of Any Multi-Drug Resistant Organisms: None Reported Past Surgical History: Back Surgery, Bariatric Surgery, Orthopedic Surgery Additional Past Surgical History / Comment(s): right shoulder, left shoulder, gastric bypass Past Anesthesia/Blood Transfusion Reactions: No Reported Reaction Past Psychological History: Anxiety, Bipolar, Depression Smoking Status: Never smoker Past Alcohol Use History: Abuse Additional Past Alcohol Use History / Comment(s): Pt. drank 3 times a week heavily for 10 yrs. and quit 2 yrs. ago. Past Drug Use History: Prescription Drug Abuse - Past Family History Mother Family Medical History: No Reported History Sister(s) Family Medical History: Pulmonary Embolus Medications and Allergies Home Medications Medication Instructions Recorded Confirmed Type traZODone HCL 150 mg PO HS 04/10/16 05/12/23 History lamoTRIgine [LaMICtal] 200 mg PO BID 30 Days #60 tablet 02/08/18 05/12/23 Rx Levothyroxine Sodium [Synthroid] 88 mcg PO DAILY 03/30/23 05/12/23 History QUEtiapine FUMARATE [SEROquel] 300 mg PO HS 04/12/23 05/12/23 History Cyclobenzaprine [Flexeril] 5 mg PO TID PRN 05/12/23 05/12/23 History Ergocalciferol [Vitamin D2 (1250 1,250 mcg PO DIRECTED 05/12/23 05/12/23 History Mcg = 55254 Iu)] Furosemide [Lasix] 20 mg PO DAILY PRN 05/12/23 05/12/23 History Linaclotide [Linzess] 145 mcg PO DAILY PRN 05/12/23 05/12/23 History Sertraline [Zoloft] 100 mg PO DAILY 05/12/23 05/12/23 History carvediloL [Coreg] 3.125 mg PO BID 05/12/23 05/12/23 History hydrOXYzine pamoate [Vistaril] 25 - 50 mg PO BID PRN 05/12/23 05/12/23 History oxyCODONE HCL/ACETAMINOPHEN 1 tab PO Q6HR PRN 05/12/23 05/12/23 History [Percocet 10-325 mg] Allergies Allergy/AdvReac Type Severity Reaction Status Date / Time No Known Allergies Allergy Verified 05/12/23 10:19 Physical Exam Vitals: Vital Signs Temp Pulse Pulse Pulse Resp BP BP 05/13/23 09:00 97 18 05/13/23 07:03 97.9 F 97 18 146/84 05/13/23 00:30 98.1 F 93 18 156/88 05/13/23 00:18 98 16 150/99 05/12/23 18:05 98.3 F 90 16 158/105 05/12/23 12:43 97 16 182/103 Pulse Ox 05/13/23 09:00 05/13/23 07:03 91 L 05/13/23 00:30 93 L 05/13/23 00:18 93 L 05/12/23 18:05 93 L 05/12/23 12:43 93 L Intake and Output 05/12/23 05/13/23 05/13/23 22:59 06:59 14:59 Output Total 250 Balance -250 Output: Urine 250 Other: Voiding Method Bedside Commode Bedside Commode # Voids 1 Weight 77.111 kg Results CBC & Chem 7: 05/12/23 08:34 05/12/23 08:34 Thrombosis Risk Factor Assmnt - Choose All That Apply Each Factor Represents 1 point: History of prior major surgery (<1month) Each Risk Factor Represents 2 Points: Age 61-74 years Thrombosis Risk Factor Assessment Total Risk Factor Score: 3 Thrombosis Risk Factor Assessment Level: Moderate Risk
--- NOTE | 2023-05-13 16:28 | CT ---
EXAMINATION TYPE: CT cervical spine wo con DATE OF EXAM: 05/13/2023 COMPARISON: None HISTORY: fall 05/13/[address] DLP: 387.50 mGycm CONTRAST: Performed , patient injected with mL of . CT of the cervical spine is performed in the axial plane at 2 mm thick sections. Reconstructed image s in the coronal, and sagittal plane are reviewed on the computer. No acute fractures are evident. There is very minimal anterior listhesis of C4 anteriorly on C5. There is a minimal retrolisthesis of C5 posterior on C6. Large endplate spurs are present C5-6 with anterior thecal sac compression. No A P spinal canal stenosis at C5-6 level. Disc heights are preserved. Vertebral body heights are preserved. No spinal canal stenosis is evident C2-3: There is mild uncovertebral joint hypertrophy with mild left foraminal stenosis. C3-4: Bilateral foraminal narrowing is present. C5-6: Severe bilateral foraminal stenosis is present. IMPRESSION: 1. Minimal anterolisthesis of C4 on C5 mild retrolisthesis of C5 on C6. 2. Multilevel foraminal stenosis appears greatest at the C5-6 level. 3. No acute osseous abnormality cervical spine
[2023-05-13] MEDS ORDERED: RIVAROXABAN 20 MG TAB PO SCH (17:30)
[2023-05-13] MEDS: CEPHALEXIN 500 MG CAP PO SCH ×2 (17:35→22:13)
[2023-05-13] MEDS: QUEtiapine 100 MG TAB PO SCH (20:39)
[2023-05-13] MEDS: traZODone HCL 50 MG TAB PO SCH (20:40)
[2023-05-14] MEDS: SODIUM CHLORIDE 0.9% 1,000 ML IV SCH ×2 (05:52→17:51)
--- NOTE | 2023-05-14 07:00 | P.CNPUL ---
History of Present Illness Consult date: 05/14/23 Requesting physician: Bertin Flores Reason for consult: pulmonary embolism Chief complaint: Fall and back pain History of present illness: I am seeing this patient in consultation today May 14, 2023 mostly for preoperative pulmonary clearance as the patient has a pulmonary embolism and is scheduled to go to the OR tomorrow with Dr. Flores for a open reduction internal fixation with revision of T7-T10 stabilization of a unstable T9 fracture. Patient is a 68-year-old white female with past medical history significant for recent hospitalization for elective T10 to pelvis revision decompression and fusion on March 31, 2023. Unfortunately, her postoperative recovery was complicated by a right-sided pulmonary embolism. Patient was briefly readmitted and initiated on anticoagulation inpatient. She was then sent to [facility] for rehab. Reportedly, the patient left [facility] and has since stopped her Xarelto independently. She has had multiple falls at home. She has had lower extremity weakness. She came to the emergency room yesterday afternoon complaining of severe back pain. Currently the patient is lethargic. She could be tired, as I am interviewing her at night. She also recently received pain medications. She is minimally participating with questions. She is an overall poor historian. She states that she is living with her son. She left [facility] because she did not like the care there. States that she has not been taking her Xarelto. Admits to falling at home and while here. CT of the lumbar and thoracic spine on arrival showed a new T9 vertebral body compression fracture with near complete height loss centrally. There was mild retropulsion up to 5 mm with mild to moderate spinal canal stenosis. There is also postsurgical changes without evidence of hardware fracture or malalignment. Brain CT on arrival without contrast did not show any acute intracranial hemorrhage or mass effect. CT of the C-spine did not show any acute fractures. There were some chronic degenerative changes. Lower extremities appear weak bilaterally. Denies any saddle anesthesia. Denies any bowel or bladder incontinence. Most recent CBC from 2 days ago has a white blood cell count of 13.7, hemoglobin 11.5, hematocrit 36.5, platelets 389. BMP on arrival has a sodium 132, testing 3.9, chloride 101, serum bicarb 21, BUN 8, creatinine 0.26, glucose 142. Urinalysis concerning for UTI. Positive for leukocytes and pyuria. She was started on Kefzol. Blood cultures positive for Staph epidermidis, likely contaminant. Repeat blood cultures are pending. As far as the patient's pulmonary status, she is currently on room air. She is very comfortable. She denies any chest pain or hemoptysis. She appears hemodynamically stable at this time. Past Medical History Past Medical History: No Reported History Additional Past Medical History / Comment(s): IRON DEFICIENCY ANEMIA. History of Any Multi-Drug Resistant Organisms: None Reported Past Surgical History: Back Surgery, Bariatric Surgery, Orthopedic Surgery Additional Past Surgical History / Comment(s): right shoulder, left shoulder, gastric bypass Past Anesthesia/Blood Transfusion Reactions: No Reported Reaction Past Psychological History: Anxiety, Bipolar, Depression Smoking Status: Never smoker Past Alcohol Use History: Abuse Additional Past Alcohol Use History / Comment(s): Pt. drank 3 times a week heavily for 10 yrs. and quit 2 yrs. ago. Past Drug Use History: Prescription Drug Abuse - Past Family History Mother Family Medical History: No Reported History Sister(s) Family Medical History: Pulmonary Embolus Medications and Allergies Home Medications Medication Instructions Recorded Confirmed Type traZODone HCL 150 mg PO HS 04/10/16 05/12/23 History lamoTRIgine [LaMICtal] 200 mg PO BID 30 Days #60 tablet 02/08/18 05/12/23 Rx Levothyroxine Sodium [Synthroid] 88 mcg PO DAILY 03/30/23 05/12/23 History QUEtiapine FUMARATE [SEROquel] 300 mg PO HS 04/12/23 05/12/23 History Cyclobenzaprine [Flexeril] 5 mg PO TID PRN 05/12/23 05/12/23 History Ergocalciferol [Vitamin D2 (1250 1,250 mcg PO DIRECTED 05/12/23 05/12/23 History Mcg = 32162 Iu)] Furosemide [Lasix] 20 mg PO DAILY PRN 05/12/23 05/12/23 History Linaclotide [Linzess] 145 mcg PO DAILY PRN 05/12/23 05/12/23 History Sertraline [Zoloft] 100 mg PO DAILY 05/12/23 05/12/23 History carvediloL [Coreg] 3.125 mg PO BID 05/12/23 05/12/23 History hydrOXYzine pamoate [Vistaril] 25 - 50 mg PO BID PRN 05/12/23 05/12/23 History oxyCODONE HCL/ACETAMINOPHEN 1 tab PO Q6HR PRN 05/12/23 05/12/23 History [Percocet 10-325 mg] Allergies Allergy/AdvReac Type Severity Reaction Status Date / Time No Known Allergies Allergy Verified 05/12/23 10:19 Physical Exam Vitals: Vital Signs Temp Pulse Resp BP BP Pulse Ox 05/14/23 02:00 98.7 F 88 18 99/68 93 L 05/13/23 20:58 145/89 05/13/23 20:50 160/90 05/13/23 20:00 98.3 F 104 H 16 152/101 90 L 05/13/23 12:21 97.9 F 109 H 18 137/81 95 05/13/23 09:00 97 18 05/13/23 07:03 97.9 F 97 18 146/84 91 L Intake and Output 05/13/23 05/13/23 05/14/23 14:59 22:59 06:59 Other: Voiding Method Bedside Commode Bedside Commode # Voids 1 GENERAL EXAM: Lethargic, 68-year-old white female, wearing a c-collar and fairly comfortable. HEAD: Normocephalic and atraumatic EYES: Normal reaction of pupils, equal size. NOSE: Clear with pink turbinates. THROAT: No erythema or exudates. NECK: No masses, no JVD. CHEST: No chest wall deformity. LUNGS: Equal air entry with no crackles, wheeze, rhonchi or dullness. On room air. No conversational dyspnea or accessory muscle use.. CVS: S1 and S2 normal with no audible murmur, regular rhythm. No extra heart sounds ABDOMEN: No hepatosplenomegaly, active bowel sounds, no guarding or rigidity. SPINE: No scoliosis or deformity SKIN: No rashes CENTRAL NERVOUS SYSTEM: There is bilateral lower extremity weakness, grade 4/4. Upper extremity strength graded 5/5. No focal deficits. No sensation disturbances. Patellar DTRs 1+ bilaterally. EXTREMITIES: There is no peripheral edema, clubbing, or cyanosis. Peripheral pulses are intact. Results - Laboratory Findings CBC and BMP: 05/12/23 08:34 05/12/23 08:34 Abnormal lab findings: Abnormal Labs 05/12/23 05/12/23 05/12/23 07:50 08:34 08:34 WBC 13.7 H RBC 3.79 L RDW 16.6 H Neutrophils # 12.7 H Lymphocytes # 0.2 L Sodium 132 L Carbon Dioxide 21 L Creatinine 0.26 L Glucose 142 H Alkaline Phosphatase 253 H Total Protein 6.1 L Albumin 3.2 L Urine Appearance Cloudy H Urine Protein 1+ H Urine Ketones 1+ H Urine Blood Small H Ur Leukocyte Esterase Large H Urine RBC 13 H Urine WBC >182 H Urine Bacteria Moderate H Hyaline Casts 4 H Urine Mucus Many H - Diagnostic Findings Chest x-ray: image reviewed Assessment and Plan Assessment: Recurrent falls and new T9 fracture, tentatively scheduled to undergo open reduction and internal fixation with revision of T7-T10 stabilization of the patient's T9 fracture later this morning. CT of the lumbar and thoracic spine on arrival showed new T9 vertebral body compression fracture with near complete height loss centrally. There was mild retropulsion of up to 5 mm with mild to moderate spinal Canal stenosis. The patient does have a mild bilateral lower extremity weakness. No signs of cauda equina syndrome. History of revision of T10 to pelvis decompression and fusion on March 31, 2023 Recent development of provoked right-sided pulmonary embolism, was started on anticoagulation inpatient and transitioned to Xarelto on discharge. She was discharged to [facility], where she left AGAINST MEDICAL ADVICE, and has since stopped her Xarelto on her own. Chest CT angio at time of diagnosis, on April 15, 2023, was positive for pulmonary emboli on the right, beginning at the bifurcation extending into the right middle and lower lobes. Suspected urinary tract infection Positive blood culture for staph epidermidis, possible contaminant History of hypothyroidism History of hypertension History of anxiety/depression History of bipolar Former tobacco smoker Plan: Patient's medications, labs, imaging reviewed. It is my understanding that Dr. Flores plans to take this patient to the operating room later this morning for the above-mentioned procedure. Patient Xarelto is currently already on hold. Would recommend restarting systemic anticoagulation, as soon as possible and once cleared by surgery, postoperatively. Patient is currently on room air. She is in no respiratory distress. She has had multiple recurrent falls, initiate fall precautions. Patient was initiated on antibiotics by the admitting physician for her probable UTI. Positive blood culture for Staph epidermidis is likely contaminant, will repeat blood cultures. Pain appears well-controlled. Continue SCDs Patient appears hemodynamically stable. We will continue to follow I have personally seen and examined the patient, performed the documentation and the assessment and plan as written. Number of minutes spent on the visit:20 Time with Patient: Greater than 30
[2023-05-14] MEDS: LEVOTHYROXINE 88 MCG TAB PO SCH (07:09)
[2023-05-14] MEDS: CEPHALEXIN 500 MG CAP PO SCH ×2 (07:47→13:05)
[2023-05-14] MEDS: CYCLOBENZAPRINE 5 MG TAB PO SCH ×3 (07:47→21:31)
[2023-05-14] MEDS: SERTRALINE 100 MG TAB PO SCH (07:47)
[2023-05-14] MEDS: lamoTRIgine 100 MG TAB PO SCH ×2 (07:47→21:31)
[2023-05-14] MEDS: carvediloL 3.125 MG TAB PO SCH ×2 (08:32→17:42)
--- NOTE | 2023-05-14 08:49 | CT ---
CTA CHEST EXAMINATION TYPE: CT chest angio for PE DATE OF EXAM: 05/14/2023 INDICATION: PT pre surgical, non compliant taking direct oral anti coagulants, check for PE. IV taisha d, had to reinject [address] DLP: 323 mGycm, Automated exposure control for dose reduction was used. CONTRAST: Patient injected with 160 mL of Isovue 370. COMPARISON: None TECHNIQUE: CT of the chest is performed on a spiral scan at 2 mm thick sections. Study is performed with intravenous contrast timed for evaluation for pulmonary embolism. This will limit additional po rtions of the evaluation. 3-D MIP images reconstructed by the technologist are reviewed on the compu ter in the coronal and sagittal planes. FINDINGS: No persistent filling defects are evident to suggest an acute pulmonary embolism. No mediastinal or hilar adenopathy enlarged by CT criteria is evident. The ascending aorta diameter at the level of the main pulmonary artery is 4.2 cm. The main pulmonary artery diameter at the bifur cation is 3.9 cm. There appears to be some compressive atelectasis bilateral lung bases. Some minimal fluid may be pres ent. Limited CT section through the upper abdomen. Some postsurgical changes within the lower thoracic re gion IMPRESSION: 1. No acute pulmonary embolism. 2. Minimal pleural effusions with some adjacent compressive atelectasis.
--- NOTE | 2023-05-14 09:55 | P.PN ---
Progress Note - Text Progress Note Date: 05/14/23 Patient has remained NPO since MN for surgery this afternoon. Patient has had lab results for elevated troponins, Cardiology was consulted and currently pending cardio clearance for surgery. Patient is currently resting in bed. She is mildly confused. She denies any pain at this time. Pulmonary has cleared patient for surgery from their standpoint.
[2023-05-14] MEDS: oxyCODONE-APAP 10-325MG 1 EACH TAB PO PRN ×2 (11:37→17:45)
[2023-05-14] MEDS ORDERED: TRANEXAMIC 1,000 MG/100ML-NACL 1,000 MG in SALINE 1 100ML.BAG IVPB PRN (13:00)
[2023-05-14 13:11] LABS: Anisocytosis Slight; Basophils % (A) 0 %; Eosinophils % (A) 0 %; HCT 32.7 % (34.0-46.0); HGB 10.7 gm/dL (11.4-16.0); Hypochromasia Slight; Lymphocytes # (A) 0.3 k/uL (1.0-4.8); Lymphocytes % (A) 3 %; MCH 30.9 pg (25.0-35.0); MCHC 32.7 g/dL (31.0-37.0); MCV 94.5 fL (80.0-100.0); Monocytes # (A) 0.7 k/uL (0-1.0); Monocytes % (A) 7 %; Neutrophils % (A) 89 %; Platelet Count 396 k/uL (150-450); RBC 3.46 m/uL (3.80-5.40); RDW 16.2 % (11.5-15.5); WBC 10.1 k/uL (3.8-10.6)
--- NOTE | 2023-05-14 13:18 | P.CRDCN ---
History of Present Illness Consult date: 05/14/23 Reason for Consult (text): Elevated troponin, preop clearance History of present illness: History of present illness: This is a 68-year-old female patient of Dr. Medina with past medical history of hypertension, moderate MR, mild AR, family history of coronary artery disease. We have been asked to evaluate the patient for elevated troponin and preop clearance. Patient had original back surgery done on 03/31/2023 on the lumbar/S1 area. She apparently went to half-way and about 1 month ago she was diagnosed with pulmonary embolism. Patient was brought into the hospital at that time for chest discomfort and palpitation and seen by cardiology. No arrhythmias were found on telemetry/EKGs. Patient was subsequently diagnosed with PE after CTA of the chest. Patient apparently signed out AMA from the half-way and it seems she has not been taking Xarelto. It is unknown how long she has not been taking her medication. She presented to the hospital on May 12 after a fall or possibly multiple falls with low back pain and weakness. She has been admitted to the hospital and seen by orthopedics with plan for T9 ORIF and revision of the lumbar surgery. Patient currently denies having any chest pain or shortness of breath. She states that she is usually active but according to staff, patient has had multiple falls. She has never had any cardiac stent done and no history of diabetes. Patient is noted to have poor memory recall and obviously has been noncompliant with medication regime. EKG sinus rhythm with Q waves in the inferior leads CTA of the chest revealed no acute pulmonary embolism. Minimal pleural ef fusions with some adjacent compressive atelectasis. CTA of the chest that was performed on 04/15/2023 was positive for pulmonary emboli on the right. Troponin 0.140. proBNP 2870. Sodium 132, potassium 3.9, creatinine 0.26. WBC 13.7, hemoglobin 9.5. Urinalysis positive for UTI Home cardiac medications: Coreg 3.125 mg twice daily, Lasix 20 mg daily as needed, also on levothyroxine 88 mcg daily. Noted that Xarelto was not listed on her home medication list. Echocardiogram performed on 04/16/2023 reveals mildly increased left ventricular wall thickness, left ventricular ejection fraction 50 to 55%, RVSP 23, mild regurgitation, mild tricuspid regurgitation. Review Of Systems: At the time of my evaluation: Constitutional: No fever, no chills. EENT: No headache. No dizziness. Lungs: No shortness of breath, cough, no sputum production. No wheezing. Cardiovascular: No chest pain, no lower extremity edema. No palpitations. Abdominal: No vomiting. Musculoskeletal: + frequent falls. Integumentary: No rash. Neurologic: + change in mentation. Physical examination: Gen: This is a 68-year-old female, resting in bed appears to be in no acute distress. VS: reviewed HEENT: Head is atraumatic, normocephalic. Pupils equal, round. Sclerae is anicteric. Hard c-collar in place. LUNGS: Clear to auscultation. No wheezes or rhonchi. No intercostal retractions. HEART: Regular rate and rhythm. No murmur. ABDOMEN: Soft No tenderness. EXTREMITIES: No pedal edema. No calf tenderness. NEUROLOGICAL: Patient is awake, and confused. Assessment: Elevated troponin, possible non-ST elevated [place] UTI Confusion Recent pulmonary embolism Recent lumbar surgery Hypertension Plan: Continue patient's home cardiac medications Obtain repeat troponin x 2 Recommend discontinuing Xarelto and start patient on Lovenox. Note Xarelto has not been given on this hospitalization. Obtain limited echocardiogram to evaluate LV function From cardiology perspective, patient is at very high risk for having complications with elevated troponins and would not recommend moving forward with surgery today. Thank you kindly for this consultation. Nurse practitioner note has been reviewed, I agree with documented findings and plan of care. Patient was seen and examined. Past Medical History Past Medical History: No Reported History Additional Past Medical History / Comment(s): IRON DEFICIENCY ANEMIA. History of Any Multi-Drug Resistant Organisms: None Reported Past Surgical History: Back Surgery, Bariatric Surgery, Orthopedic Surgery Additional Past Surgical History / Comment(s): right shoulder, left shoulder, gastric bypass Past Anesthesia/Blood Transfusion Reactions: No Reported Reaction Past Psychological History: Anxiety, Bipolar, Depression Smoking Status: Never smoker Past Alcohol Use History: Abuse Additional Past Alcohol Use History / Comment(s): Pt. drank 3 times a week heavily for 10 yrs. and quit 2 yrs. ago. Past Drug Use History: Prescription Drug Abuse - Past Family History Mother Family Medical History: No Reported History Sister(s) Family Medical History: Pulmonary Embolus Medications and Allergies Home Medications Medication Instructions Recorded Confirmed Type traZODone HCL 150 mg PO HS 04/10/16 05/12/23 History lamoTRIgine [LaMICtal] 200 mg PO BID 30 Days #60 tablet 02/08/18 05/12/23 Rx Levothyroxine Sodium [Synthroid] 88 mcg PO DAILY 03/30/23 05/12/23 History QUEtiapine FUMARATE [SEROquel] 300 mg PO HS 04/12/23 05/12/23 History Cyclobenzaprine [Flexeril] 5 mg PO TID PRN 05/12/23 05/12/23 History Ergocalciferol [Vitamin D2 (1250 1,250 mcg PO DIRECTED 05/12/23 05/12/23 History Mcg = 52603 Iu)] Furosemide [Lasix] 20 mg PO DAILY PRN 05/12/23 05/12/23 History Linaclotide [Linzess] 145 mcg PO DAILY PRN 05/12/23 05/12/23 History Sertraline [Zoloft] 100 mg PO DAILY 05/12/23 05/12/23 History carvediloL [Coreg] 3.125 mg PO BID 05/12/23 05/12/23 History hydrOXYzine pamoate [Vistaril] 25 - 50 mg PO BID PRN 05/12/23 05/12/23 History oxyCODONE HCL/ACETAMINOPHEN 1 tab PO Q6HR PRN 05/12/23 05/12/23 History [Percocet 10-325 mg] Allergies Allergy/AdvReac Type Severity Reaction Status Date / Time No Known Allergies Allergy Verified 05/12/23 10:19 Physical Exam Vitals: Vital Signs Temp Pulse Resp BP BP Pulse Ox 05/14/23 07:19 97.8 F 93 20 117/72 92 L 05/14/23 02:00 98.7 F 88 18 99/68 93 L 05/13/23 20:58 145/89 05/13/23 20:50 160/90 05/13/23 20:00 98.3 F 104 H 16 152/101 90 L Intake and Output 05/13/23 05/14/23 05/14/23 22:59 06:59 14:59 Output Total 547 Balance -547 Output: Urine 400 Post Void Residual 147 Other: Voiding Method Bedside Commode Bedpan # Voids 1 Results 05/12/23 08:34 05/12/23 08:34 Cardiac Enzymes 05/14/23 Range/Units 05:01 Troponin I 0.140 H* (0.000-0.034) ng/mL Current Medications Generic Name Dose Route Start Last Admin Trade Name Freq PRN Reason Stop Dose Admin Acetaminophen 650 mg 05/12/23 11:04 Acetaminophen Tab 325 Mg Tab PO Q6HR PRN Mild Pain or Fever > 100.5 Carvedilol 3.125 mg 05/12/23 17:30 05/14/23 08:32 Carvedilol 3.125 Mg Tab PO 3.125 mg BID-W/MEALS [facility] Administration Cephalexin 500 mg 05/13/23 18:00 05/14/23 07:47 Cephalexin 500 Mg Cap PO Not Given QID [facility] Protocol Cyclobenzaprine HCl 5 mg 05/12/23 16:00 05/14/23 07:47 Cyclobenzaprine 5 Mg Tab PO Not Given TID [facility] Cyclobenzaprine HCl 5 mg 05/13/23 11:01 Cyclobenzaprine 5 Mg Tab PO TID PRN Muscle Spasm Ergocalciferol 1,250 mcg 05/19/23 09:00 Ergocalciferol 1,250 Mcg (50,000 Iu) Capsule PO Q14D [facility] Hydroxyzine Pamoate 50 mg 05/12/23 11:05 Hydroxyzine Pamoate 25 Mg Cap PO BID PRN Anxiety Sodium Chloride 1,000 mls @ 75 mls/hr 05/12/23 08:00 05/14/23 05:52 Saline 0.9% IV Not Given .[id number] [facility] Cefazolin Sodium 2 gm/ Sodium 50 mls @ 100 mls/hr 05/14/23 13:00 Chloride IVPB 05/15/23 00:01 ONCE PRN pre-op Protocol Tranexamic Acid/Sodium 100 mls @ 200 mls/hr 05/14/23 13:00 Chloride 1,000 mg/ IV Solution IVPB 05/15/23 00:01 Q2HR PRN intra-op Protocol Lamotrigine 200 mg 05/12/23 21:00 05/14/23 07:47 Lamotrigine 100 Mg Tab PO Not Given BID [facility] Levothyroxine Sodium 88 mcg 05/13/23 06:30 05/14/23 07:09 Levothyroxine 88 Mcg Tab PO 88 mcg 0630 [facility] Administration Naloxone HCl 0.2 mg 05/12/23 11:04 Naloxone 0.4 Mg/Ml 1 Ml Vial IV Q2M PRN Opioid Reversal Patient's Own ( 145 mcg 05/12/23 11:05 Linaclotide [Linzess PO ] 145 Mcg Capsule) DAILY PRN Constipation Ondansetron HCl 4 mg 05/12/23 11:04 05/12/23 23:03 Ondansetron 4 Mg/2 Ml Vial IVP 4 mg Q8HR PRN Administration Nausea And Vomiting Oxycodone/Acetaminophen 1 each 05/12/23 11:05 05/14/23 11:37 Oxycodone-Apap 10-325mg 1 Each Tab PO 1 each Q6HR PRN Administration Pain Quetiapine Fumarate 300 mg 05/12/23 21:00 05/13/23 20:39 Quetiapine 100 Mg Tab PO 300 mg HS [facility] Administration Senna 8.6 mg 05/12/23 15:12 Sennosides 8.6 Mg Tab PO DAILY PRN Constipation Sertraline HCl 100 mg 05/13/23 09:00 05/14/23 07:47 Sertraline 100 Mg Tab PO Not Given DAILY [facility] Trazodone HCl 150 mg 05/12/23 21:00 05/13/23 20:40 Trazodone Hcl 50 Mg Tab PO 150 mg HS [facility] Administration Intake and Output 05/13/23 05/14/23 05/14/23 22:59 06:59 14:59 Output Total 547 Balance -547 Output: Urine 400 Post Void Residual 147 Other: Voiding Method Bedside Commode Bedpan # Voids 1 05/12/23 08:34 05/12/23 08:34
[2023-05-14 13:23] LABS: African American GFR (CKD) >90 (>60 ml/min/1.73 sqM); Anion Gap 6 mmol/L; Blood Urea Nitrogen 12 mg/dL (7-17); Calcium 9.2 mg/dL (8.4-10.2); Carbon Dioxide 23 mmol/L (22-30); Chloride 100 mmol/L (98-107); Glucose 109 mg/dL (74-99); Non-African American GFR(CKD) >90 (>60 ml/min/1.73 sqM); Potassium 3.5 mmol/L (3.5-5.1); Sodium 129 mmol/L (137-145)
[2023-05-14] MEDS: ACETAMINOPHEN TAB 325 MG TAB PO PRN ×2 (15:20→21:31)
--- NOTE | 2023-05-14 17:27 | P.PN ---
Progress Note - Text Progress Note Date: 05/14/23 Chief Complaint: Falls This is a pleasant 68-year-old patient, follows with Dr. Malik Beyer. Patient on 03/31/2023 underwent lower back surgery by Dr.) Flores. Rather extensive surgery. Following that patient was discharged to [facility] for rehab. Patient then readmitted from April 13 through April 17. Was found to have pulmonary embolism. Was this time discharged to [facility]. Patient has been home for few days. Been having falls. Some low back pain. This morning patient was on the toilet and she fell down hitting the head. Did not pass out. Cervical collar was placed. CT scans of brain unremarkable. She been having some weakness of the lower extremity. Apparently at home the dog ran into her and she had fallen on her left side. She is also having trouble getting out of bed. Has been using a walker. No change in bowel or urine pattern. No fever or chills. Orthopedics/Dr. Flores was consulted I spoke to patient's son Jeronimo over the phone. Patient stopped taking her Xarelto since she left [facility]. She has signed herself out AMA within 24 hours. Left AMA. Patient be resumed Xarelto for now. May 14: Patient was seen by pulmonary. Patient has positive troponin. No chest pain. Cardiology was consulted. Patient's blood culture drawn on the growing gram-positive cocci in clusters. Patient has a normal white count. Afebrile. On IV Ancef. Chest CTA: Negative for PE. Pending surgery his Xarelto was not resumed. Seen by cardiology. Discussed at length with the patient. Since he has left the rehab AMA. She never resumed her Xarelto. Patient surgery has been postponed for now. Repeat blood cultures have been ordered today. Total time spent today about an hour with over 40 minutes of discussion. Active Medications Acetaminophen (Acetaminophen Tab 325 Mg Tab) 650 mg PO Q6HR PRN PRN Reason: Mild Pain or Fever > 100.5 Last Admin: 05/14/23 15:20 Dose: 650 mg Carvedilol (Carvedilol 3.125 Mg Tab) 3.125 mg PO BID-W/MEALS [facility] Last Admin: 05/14/23 08:32 Dose: 3.125 mg Cephalexin (Cephalexin 500 Mg Cap) 500 mg PO QID [facility]; Protocol Last Admin: 05/14/23 13:05 Dose: 500 mg Cyclobenzaprine HCl (Cyclobenzaprine 5 Mg Tab) 5 mg PO TID [facility] Last Admin: 05/14/23 15:20 Dose: 5 mg Cyclobenzaprine HCl (Cyclobenzaprine 5 Mg Tab) 5 mg PO TID PRN PRN Reason: Muscle Spasm Ergocalciferol (Ergocalciferol 1,250 Mcg (50,000 Iu) Capsule) 1,250 mcg PO Q14D [facility] Hydroxyzine Pamoate (Hydroxyzine Pamoate 25 Mg Cap) 50 mg PO BID PRN PRN Reason: Anxiety Sodium Chloride (Saline 0.9%) 1,000 mls @ 75 mls/hr IV .[id number] [facility] Last Admin: 05/14/23 05:52 Dose: Not Given Cefazolin Sodium 2 gm/ Sodium (Chloride) 50 mls @ 100 mls/hr IVPB ONCE PRN; Protocol PRN Reason: pre-op Stop: 05/15/23 00:01 Tranexamic Acid/Sodium (Chloride 1,000 mg/ IV Solution) 100 mls @ 200 mls/hr IVPB Q2HR PRN; Protocol PRN Reason: intra-op Stop: 05/15/23 00:01 Lamotrigine (Lamotrigine 100 Mg Tab) 200 mg PO BID [facility] Last Admin: 05/14/23 07:47 Dose: Not Given Levothyroxine Sodium (Levothyroxine 88 Mcg Tab) 88 mcg PO 0630 [facility] Last Admin: 05/14/23 07:09 Dose: 88 mcg Naloxone HCl (Naloxone 0.4 Mg/Ml 1 Ml Vial) 0.2 mg IV Q2M PRN PRN Reason: Opioid Reversal Patient's Own ( Linaclotide [Linzess ] 145 Mcg Capsule) 145 mcg PO DAILY PRN PRN Reason: Constipation Ondansetron HCl (Ondansetron 4 Mg/2 Ml Vial) 4 mg IVP Q8HR PRN PRN Reason: Nausea And Vomiting Last Admin: 05/12/23 23:03 Dose: 4 mg Oxycodone/Acetaminophen (Oxycodone-Apap 10-325mg 1 Each Tab) 1 each PO Q6HR PRN PRN Reason: Pain Last Admin: 05/14/23 11:37 Dose: 1 each Quetiapine Fumarate (Quetiapine 100 Mg Tab) 300 mg PO [facility] Last Admin: 05/13/23 20:39 Dose: 300 mg Senna (Sennosides 8.6 Mg Tab) 8.6 mg PO DAILY PRN PRN Reason: Constipation Sertraline HCl (Sertraline 100 Mg Tab) 100 mg PO DAILY [facility] Last Admin: 05/14/23 07:47 Dose: Not Given Trazodone HCl (Trazodone Hcl 50 Mg Tab) 150 mg PO [facility] Last Admin: 05/13/23 20:40 Dose: 150 mg Past medical history to include: Iron deficiency anemia, gastric bypass, bipolar disorder, osteoarthritis, constipation possibly from narcotics Social history: Recently in rehab. Prior history of prescription drug abuse. [place]. Has been clean since 2014. Son lives at home with her Physical examination: VITAL SIGNS: 98.4, 101, 18, 169 x 100 GENERAL: Lying in bed, comfortable EYES: Pupils equal. Conjunctiva normal. HEENT: External appearance of nose and ears normal, oral cavity grossly normal. NECK: Cervical collar HEART: First and second heart sounds are normal; no edema. LUNGS: Respiratory rate normal; clear to auscultation. ABDOMEN: Soft, nontender, liver spleen not palpable, no masses palpable. PSYCH: Alert and oriented x3; mood and affect normal. MUSCULOSKELETAL:No Clubbing/cyanosis;muscles-grossly intact. OA. NEUROLOGICAL: Cranial nerves grossly intact. Good emergency medical services coordinator in both the arms. Able to move both the lower extremity. INVESTIGATIONS, reviewed in the clinical context: May 14: White count 10.1 hemoglobin 10.7 sodium 129 potassium 3.5 creatinine 0.24. Troponin I: 0.140, 0.133, 0.125. proBNP 2870 Blood culture [May 12] gram-positive cocci in clusters CT brain: Negative for fracture May 12, 2023: White count 3.7 hemoglobin 11.5 platelets are 87 sodium 132 potassium 3.9 BUN 8 creatinine 0.26 UA: Leukoesterase positive WBC 182 bacteria moderate Chest x-ray film personally reviewed by me-unremarkable CT scan thoracolumbar spine: T9 vertebral body compression fracture with near complete height loss centrally new from March 31. Postsurgical changes. Previous labs: Hemoglobin 9.1 on April 06 and 13 on April 01 Assessment and plan: -This is a patient with lumbar surgery in March with Dr. Flores. Did better after surgery. Did go to rehab. Patient had a fall at home. 2 more falls after that. Some increased low back pain and weakness in the lower extremity. Consult Dr. Flores -Sepsis with blood culture positive for gram-positive cocci in clusters. From May 12: Given patient's recent back surgery with hardware that would be a potential source. Repeat blood culture ordered. Change Keflex to IV Ancef Repeat urine culture -Acute T9 vertebral body compression fracture which is reported to be new from March 31. Patient had a fall 2 weeks ago when her dog and ran into her at home. -Acute pulmonary embolism. March 2023 l Apparently patient not been taking his Xarelto for at least last 2-1/2 weeks. Will resume the same. - gait dysfunction following surgery. Patient did get rehab Does use a walker -Bipolar disorder Trazodone. Lamictal. Seroquel. -Hypothyroid Synthroid 88 g a day -Mild hyponatremia Increase oral intake -Acute UTI with cystitis. Oral Keflex Home medication resumed. IV fluids. CT scan of the brain negative for any fracture. Has a cervical collar. Follow-up with orthopedics. Discussed with patient. Past Medical History Past Medical History: No Reported History Additional Past Medical History / Comment(s): IRON DEFICIENCY ANEMIA. History of Any Multi-Drug Resistant Organisms: None Reported Past Surgical History: Back Surgery, Bariatric Surgery, Orthopedic Surgery Additional Past Surgical History / Comment(s): right shoulder, left shoulder, gastric bypass Past Anesthesia/Blood Transfusion Reactions: No Reported Reaction Past Psychological History: Anxiety, Bipolar, Depression Smoking Status: Never smoker Past Alcohol Use History: Abuse Additional Past Alcohol Use History / Comment(s): Pt. drank 3 times a week heavily for 10 yrs. and quit 2 yrs. ago. Past Drug Use History: Prescription Drug Abuse
[2023-05-14 20:40] LABS: Appearance,Urine Cloudy (Clear); Bacteria,Urine Occasional /hpf; Bilirubin,Urine Negative (Negative); Blood,Urine Small (Negative); Color,Urine Light Yellow; Glucose,Urine (UA) Negative (Negative); Ketones,Urine 2+ (Negative); Leukocyte Esterase,Urine Large (Negative); Mucus,Urine Few /hpf; Nitrite,Urine Negative (Negative); PH, Urine 6.5 (5.0-8.0); Protein,Urine 1+ (Negative); RBC,Urine 5 /hpf (0-5); Specific Gravity,Urine 1.032 (1.001-1.035); Squamous Epithelial Cell,Urine 3 /hpf (0-4); Urobilinogen,Urine <2.0 mg/dL (<2.0); WBC,Urine 99 /hpf (0-5)
[2023-05-14] MEDS: traZODone HCL 50 MG TAB PO SCH (21:31)
[2023-05-14] MEDS: QUEtiapine 100 MG TAB PO SCH (21:31)
[2023-05-15] MEDS: SODIUM CHLORIDE 0.9% 1,000 ML IV SCH ×3 (02:24→22:06)
[2023-05-15] MEDS: LEVOTHYROXINE 88 MCG TAB PO SCH (06:13)
[2023-05-15] MEDS: lamoTRIgine 100 MG TAB PO SCH ×2 (08:45→22:59)
[2023-05-15] MEDS: CYCLOBENZAPRINE 5 MG TAB PO SCH ×3 (08:45→22:59)
[2023-05-15] MEDS: carvediloL 3.125 MG TAB PO SCH ×2 (08:45→20:09)
[2023-05-15] MEDS: SERTRALINE 100 MG TAB PO SCH (08:45)
[2023-05-15] MEDS: oxyCODONE-APAP 10-325MG 1 EACH TAB PO PRN (08:48)
--- NOTE | 2023-05-15 09:22 | P.PN ---
Progress Note - Text Progress Note Date: 05/15/23 Patient seen and examined this morning. Patient has remained NPO since midnight for possible surgical procedure scheduled for later this afternoon, pending cardiac clearance. Patient is resting in bed, remains pleasantly confused. Patient cervical spine is stable, she may discontinue use of cervical collar. Patient denies any chest pain, discomfort, or shortness of breath.
--- NOTE | 2023-05-15 09:59 | CA ---
Transthoracic Echo Report Name: Darline Chiang Age: 68 Gender: F : 1955 Exam Date: 05/14/2023 13:57 Exam Location: [facility] Ht (in): 68 Wt (lb): 170 Ordering Physician: Janay Gonzáles Attending/Referring Phys: [id number], Nivia Air Reduction Equipment Operator Aline Shahid [facility] Procedure CPT: Indications: LVF Cardiac Hx: Technical Quality: Fair Contrast 1: Total Dose (mL): Contrast 2: Total Dose (mL): MEASUREMENTS (Male / Female) Normal Values 2D ECHO LV Diastolic Diameter PLAX 5.1 cm 4.2 - 5.9 / 3.9 - 5.3 cm LV Systolic Diameter PLAX 3.4 cm IVS Diastolic Thickness 0.8 cm 0.6 - 1.0 / 0.6 - 0.9 cm LVPW Diastolic Thickness 1.0 cm 0.6 - 1.0 / 0.6 - 0.9 cm LV Relative Wall Thickness 0.4 LV Diastolic Volume MOD BP 107.7 cm??? 67 - 155 / 56 - 104 cm??? LV Systolic Volume MOD BP 51.0 cm??? 22 - 58 / 19 - 49 cm??? LV Ejection Fraction MOD BP 52.7 % >= 55 % LV Cardiac Index MOD BP 2931.7 cm???/min???m??? LV Diastolic Volume MOD 4C 104.8 cm??? LV Systolic Volume MOD 4C 47.3 cm??? LV Ejection Fraction MOD 4C 54.9 % LV Cardiac Index MOD 4C 2970.2 cm???/min???m??? LV Diastolic Length 4C 7.7 cm LV Systolic Length 4C 6.3 cm LV Diastolic Volume MOD 2C 96.5 cm??? LV Systolic Volume MOD 2C 46.3 cm??? LV Ejection Fraction MOD 2C 52.0 % LV Cardiac Index MOD 2C 2592.4 cm???/min???m??? LV Diastolic Length 2C 8.9 cm LV Systolic Length 2C 7.6 cm FINDINGS Left Ventricle Mildly increased left ventricular diastolic volume. Mildly increased left ventricular systolic volume. Low normal left ventricular systolic function. Left ventricular cavity size at the upper limits of normal. No obvious regional wall motion abnormalities. Left ventricular ejection fraction is estimated at 50-55%. Right Ventricle Right Atrium Left Atrium Mitral Valve Aortic Valve Tricuspid Valve Pulmonic Valve Pericardium Normal pericardium. Aorta CONCLUSIONS Limited for LV function. Normal LV systolic function Previewed by: Dr. Steve Stokes MD (Electronically Signed) Final Date: 15 May 2023 09:58
[2023-05-15] MEDS: hydrOXYzine pamoate 25 MG CAP PO PRN (10:26)
[2023-05-15] MEDS ORDERED: SODIUM CHLORIDE 0.9% 1,000 ML IV ONE (13:34)
[2023-05-15 13:47] LABS: African American GFR (CKD) >90 (>60 ml/min/1.73 sqM); Anion Gap 8 mmol/L; Blood Urea Nitrogen 12 mg/dL (7-17); Carbon Dioxide 20 mmol/L (22-30); Chloride 101 mmol/L (98-107); Glucose 87 mg/dL (74-99); Non-African American GFR(CKD) >90 (>60 ml/min/1.73 sqM); Potassium 3.5 mmol/L (3.5-5.1); Sodium 129 mmol/L (137-145)
--- NOTE | 2023-05-15 13:47 | P.PN ---
Subjective Progress Note Date: 05/15/23 Reason for Consult (text): Elevated troponin, preop clearance History of present illness: History of present illness: This is a 68-year-old female patient of Dr. Medina with past medical history of hypertension, moderate MR, mild AR, family history of coronary artery disease. We have been asked to evaluate the patient for elevated troponin and preop c learance. Patient had original back surgery done on 03/31/2023 on the lumbar/S1 area. She apparently went to group home and about 1 month ago she was diagnosed with pulmonary embolism. Patient was brought into the hospital at that time for chest discomfort and palpitation and seen by cardiology. No arrhythmias were found on telemetry/EKGs. Patient was subsequently diagnosed with PE after CTA of the chest. Patient apparently signed out AMA from the group home and it seems she has not been taking Xarelto. It is unknown how long she has not been taking her medication. She presented to the hospital on May 12 after a fall or possibly multiple falls with low back pain and weakness. She has been admitted to the hospital and seen by orthopedics with plan for T9 ORIF and revision of the lumbar surgery. Patient currently denies having any chest pain or shortness of breath. She states that she is usually active but according to staff, patient has had multiple falls. She has never had any cardiac stent done and no history of diabetes. Patient is noted to have poor memory recall and obviously has been noncompliant with medication regime. EKG sinus rhythm with Q waves in the inferior leads CTA of the chest revealed no acute pulmonary embolism. Minimal pleural effusions with some adjacent compressive atelectasis. CTA of the chest that was performed on 04/15/2023 was positive for pulmonary emboli on the right. Troponin 0.140. proBNP 2870. Sodium 132, potassium 3.9, creatinine 0.26. WBC 13.7, hemoglobin 9.5. Urinalysis positive for UTI Home cardiac medications: Coreg 3.125 mg twice daily, Lasix 20 mg daily as needed, also on levothyroxine 88 mcg daily. Noted that Xarelto was not listed on her home medication list. Echocardiogram performed on 04/16/2023 reveals mildly increased left ventricular wall thickness, left ventricular ejection fraction 50 to 55%, RVSP 23, mild regurgitation, mild tricuspid regurgitation. 05/15 Patient is seen today in follow-up. Troponins were 0.14, 0.133 and 0.125. Echocardiogram reveals limited for left ventricular function with normal LV systolic function. Estimated at 50 to 55%. Blood pressure 139/81, heart rate 91. Patient continues to be quite confused and surgery is scheduled for today. Physical examination: Gen: This is a 68-year-old female, resting in bed appears to be in no acute distress. VS: reviewed HEENT: Head is atraumatic, normocephalic. Pupils equal, round. Sclerae is anicteric. LUNGS: Clear to auscultation. No wheezes or rhonchi. No intercostal retractions. HEART: Regular rate and rhythm. No murmur. ABDOMEN: Soft No tenderness. EXTREMITIES: No pedal edema. No calf tenderness. NEUROLOGICAL: Patient is awake, and confused. Assessment: Elevated troponin, flat, acute coronary syndrome ruled out UTI Confusion Recent pulmonary embolism Recent lumbar surgery Hypertension Plan: Continue patient's home cardiac medications Resume Xarelto once cleared by surgeon From cardiology perspective, patient is at very high risk for having complications from surgery. No further cardiac workup is pursued at this time. Nurse practitioner note has been reviewed, I agree with documented findings and plan of care. Patient was seen and examined. Objective - Vital Signs Vital signs: Vital Signs Temp 98.6 F 05/15/23 13:06 Pulse 91 05/15/23 13:06 Resp 16 05/15/23 13:06 BP 139/81 05/15/23 13:06 Pulse Ox 95 05/15/23 13:06 FiO2 Intake & Output 05/14/23 05/15/23 05/15/23 18:59 06:59 18:59 Intake Total 950 0 Balance 950 0 Intake: IV 0 Intake, IV Titration 950 Amount Sodium Chloride 0.9% 1, 900 000 ml @ 75 mls/hr IV . [id number] [facility] Rx#:[id number] ceFAZolin 2 gm In Sodium 50 Chloride 0.9% 50 ml @ 100 mls/hr IVPB Q8H [facility] Rx#: [id number] Other: Voiding Method Bedpan Bedpan Bedpan Diaper Diaper # Voids 1 3 - Labs CBC & Chem 7: 05/14/23 13:01 05/14/23 13:01 Labs: Abnormal Lab Results - Last 24 Hours (Table) 01/05/14/23 05/14/23 Range/Units 13:01 15:52 20:21 Troponin I 0.133 H* 0.125 H* (0.000-0.034) ng/mL Urine Appearance Cloudy H (Clear) Urine Protein 1+ H (Negative) Urine Ketones 2+ H (Negative) Urine Blood Small H (Negative) Ur Leukocyte Esterase Large H (Negative) Urine WBC 99 H (0-5) /hpf Urine Bacteria Occasional H (None) /hpf Urine Mucus Few H (None) /hpf Microbiology - Last 24 Hours (Table) 05/14/23 04:50 Blood Culture - Preliminary Blood 05/12/23 10:25 Blood Culture Gram Stain - Preliminary Blood Blood Culture - Preliminary Coagulase Negative Staph 05/12/23 10:14 Blood Culture Gram Stain - Preliminary Blood Blood Culture - Preliminary Coagulase Negative Staph
[2023-05-15] MEDS ORDERED: fentaNYL (PF) 50 MCG/ML 2 ML AMP IVP ONE ×2 (13:51→14:03)
[2023-05-15] MEDS ORDERED: MIDAZOLAM 2 MG/2 ML VIAL IVP ONE ×2 (13:51→13:58)
--- NOTE | 2023-05-15 14:01 | P.PN ---
Subjective Progress Note Date: 05/15/23 I am seeing this patient in consultation today May 14, 2023 mostly for preoperative pulmonary clearance as the patient has a pulmonary embolism and is scheduled to go to the OR tomorrow with Dr. Flores for a open reduction internal fixation with revision of T7-T10 stabilization of a unstable T9 fr acture. Patient is a 68-year-old white female with past medical history significant for recent hospitalization for elective T10 to pelvis revision decompression and fusion on March 31, 2023. Unfortunately, her postoperative recovery was complicated by a right-sided pulmonary embolism. Patient was briefly readmitted and initiated on anticoagulation inpatient. She was then sent to [facility] for rehab. Reportedly, the patient left [place] and has since stopped her Xarelto independently. She has had multiple falls at home. She has had lower extremity weakness. She came to the emergency room yesterday afternoon complaining of severe back pain. Currently the patient is lethargic. She could be tired, as I am interviewing her at night. She also recently received pain medications. She is minimally participating with questions. She is an overall poor historian. She states that she is living with her son. She left [facility] because she did not like the care there. States that she has not been taking her Xarelto. Admits to falling at home and while here. CT of the lumbar and thoracic spine on arrival showed a new T9 vertebral body compression fracture with near complete height loss centrally. There was mild retropulsion up to 5 mm with mild to moderate spinal canal stenosis. There is also postsurgical changes without evidence of hardware fracture or malalignment. Brain CT on arrival without contrast did not show any acute intracranial hemorrhage or mass effect. CT of the C-spine did not show any acute fractures. There were some chronic degenerative changes. Lower extremities appear weak bilaterally. Denies any saddle anesthesia. Denies any bowel or bladder incont inence. Most recent CBC from 2 days ago has a white blood cell count of 13.7, hemoglobin 11.5, hematocrit 36.5, platelets 389. BMP on arrival has a sodium 132, testing 3.9, chloride 101, serum bicarb 21, BUN 8, creatinine 0.26, glucose 142. Urinalysis concerning for UTI. Positive for leukocytes and pyuria. She was started on Kefzol. Blood cultures positive for Staph epidermidis, likely contaminant. Repeat blood cultures are pending. As far as the patient's pulmonary status, she is currently on room air. She is very comfortable. She denies any chest pain or hemoptysis. She appears hemodynamically stable at this time. The patient is seen today May 15, 2023 in follow-up on the regular medical floor. She is currently resting comfortably in bed. Awake and alert in no acute distress. Maintaining good O2 saturations in the 90s on room air. She is afebrile. Hemodynamically stable. C-collar remains in place. CT angiogram ruled out pulmonary embolism. There was minimal pleural effusions with some adjacent compressive atelectasis. Echocardiogram revealed preserved left ventricular systolic function with an ejection fraction of 50 to 55%. Sodium 129. Potassium 3.5. Bicarb 20. BUN 12. Creatinine 0.26. She remains on cefazolin. Normal saline at 75 MLS per hour. Blood cultures are showing coagulase negative staph. Objective - Vital Signs Vital signs: Vital Signs Temp 98.6 F 05/15/23 13:06 Pulse 91 05/15/23 13:06 Resp 16 05/15/23 13:06 BP 139/81 05/15/23 13:06 Pulse Ox 95 05/15/23 13:06 FiO2 Intake & Output 05/14/23 05/15/23 05/15/23 18:59 06:59 18:59 Intake Total 950 0 Balance 950 0 Intake: IV 0 Intake, IV Titration 950 Amount Sodium Chloride 0.9% 1, 900 000 ml @ 75 mls/hr IV . [id number] [facility] Rx#:[id number] ceFAZolin 2 gm In Sodium 50 Chloride 0.9% 50 ml @ 100 mls/hr IVPB Q8H [facility] Rx#: [id number] Other: Voiding Method Bedpan Bedpan Bedpan Diaper Diaper # Voids 1 3 - Exam GENERAL EXAM: Awake, alert 68-year-old female, on room air, wearing a c-collar and fairly comfortable. HEAD: Normocephalic and atraumatic EYES: Normal reaction of pupils, equal size. NOSE: Clear with pink turbinates. THROAT: No erythema or exudates. NECK: No masses, no JVD. CHEST: No chest wall deformity. LUNGS: Equal air entry with no crackles, wheeze, rhonchi or dullness. No conversational dyspnea.. CVS: S1 and S2 normal with no audible murmur, regular rhythm. No extra heart sounds ABDOMEN: No hepatosplenomegaly, active bowel sounds, no guarding or rigidity. SPINE: No scoliosis or deformity SKIN: No rashes CENTRAL NERVOUS SYSTEM: There is bilateral lower extremity weakness, grade 4/4. Upper extremity strength graded 5/5. No focal deficits. No sensation disturbances. Patellar DTRs 1+ bilaterally. EXTREMITIES: There is no peripheral edema, clubbing, or cyanosis. Peripheral pulses are intact. - Labs CBC & Chem 7: 05/14/23 13:01 05/15/23 13:28 Labs: Abnormal Lab Results - Last 24 Hours (Table) 05/14/23 05/14/23 05/14/23 Range/Units 13:01 15:52 20:21 Sodium (137-145) mmol/L Carbon Dioxide (22-30) mmol/L Creatinine (0.52-1.04) mg/dL Troponin I 0.133 H* 0.125 H* (0.000-0.034) ng/mL Urine Appearance Cloudy H (Clear) Urine Protein 1+ H (Negative) Urine Ketones 2+ H (Negative) Urine Blood Small H (Negative) Ur Leukocyte Esterase Large H (Negative) Urine WBC 99 H (0-5) /hpf Urine Bacteria Occasional H (None) /hpf Urine Mucus Few H (None) /hpf 05/15/23 Range/Units 13:28 Sodium 129 L (137-145) mmol/L Carbon Dioxide 20 L (22-30) mmol/L Creatinine 0.26 L (0.52-1.04) mg/dL Troponin I (0.000-0.034) ng/mL Urine Appearance (Clear) Urine Protein (Negative) Urine Ketones (Negative) Urine Blood (Negative) Ur Leukocyte Esterase (Negative) Urine WBC (0-5) /hpf Urine Bacteria (None) /hpf Urine Mucus (None) /hpf Microbiology - Last 24 Hours (Table) 05/14/23 04:50 Blood Culture - Preliminary Blood 05/12/23 10:25 Blood Culture Gram Stain - Preliminary Blood Blood Culture - Preliminary Coagulase Negative Staph 05/12/23 10:14 Blood Culture Gram Stain - Preliminary Blood Blood Culture - Preliminary Coagulase Negative Staph Assessment and Plan Assessment: Recurrent falls and new T9 fracture, tentatively scheduled to undergo open reduction and internal fixation with revision of T7-T10 stabilization of the patient's T9 fracture. CT of the lumbar and thoracic spine on arrival showed new T9 vertebral body compression fracture with near complete height loss centrally. There was mild retropulsion of up to 5 mm with mild to moderate spinal Canal stenosis. The patient does have a mild bilateral lower extremity weakness. No signs of cauda equina syndrome. History of revision of T10 to pelvis decompression and fusion on March 31, 2023 Recent development of provoked right-sided pulmonary embolism, was started on anticoagulation inpatient and transitioned to Xarelto on discharge. She was discharged to [facility], where she left AGAINST MEDICAL ADVICE, and has sin ce stopped her Xarelto on her own. Chest CT angio at time of diagnosis, on April 15, 2023, was positive for pulmonary emboli on the right, beginning at the bifurcation extending into the right middle and lower lobes. CT angiogram from 05/14/2023 revealed no evidence of pulmonary embolism. Suspected urinary tract infection Positive blood culture for staph epidermidis, possible contaminant History of hypothyroidism History of hypertension History of anxiety/depression History of bipolar Former tobacco smoker Plan: The patient was seen and evaluated CT angiogram, labs and medications reviewed Currently stable and on room air Cleared for surgery from the pulmonary standpoint Follow-up blood cultures pending We will continue to follow I have personally seen and examined the patient, performed the documentation and the assessment and plan as written. Number of minutes spent on the visit: 10.
[2023-05-15] MEDS ORDERED: PROPOFOL 10 MG/ML 20 ML VIAL IV ONE (14:40)
[2023-05-15] MEDS ORDERED: KETAMINE HCL IN 0.9 % NACL 50 MG/5 ML SYRINGE ONE (14:40)
[2023-05-15] MEDS ORDERED: fentaNYL (PF) 50 MCG/ML 2 ML AMP ONE (14:40)
[2023-05-15] MEDS ORDERED: SUCCINYLCHOLINE CHLORIDE 200 MG/10 ML VIAL IV ONE (14:40)
[2023-05-15] MEDS ORDERED: LIDOCAINE 1% INJ 10MG/ML (20 ML MDV) ONE (14:40)
[2023-05-15] MEDS ORDERED: ePHEDrine 50 MG/ML 1 ML VIAL ONE (14:40)
[2023-05-15] MEDS ORDERED: HYDROmorphone (PF) 1 MG/ML ONE (14:40)
[2023-05-15] MEDS ORDERED: PHENYLEPHRINE 10 MG/ML VIAL ONE (14:40)
[2023-05-15] MEDS ORDERED: TRANEXAMIC 1,000 MG/100ML-NACL PREMIX BAG ONE (14:40)
[2023-05-15] MEDS ORDERED: LACTATED RINGERS 1,000 ML IV ONE ×2 (14:56→17:44)
--- NOTE | 2023-05-15 15:05 | P.PN ---
Progress Note - Text Progress Note Date: 05/15/23 Spine Surgery Clinical and Risk Review REBECCA BLAND is a 68 YO FEMALE presenting for evaluation of MID BACK PAIN, NECK PAIN, WEAKNESS AFTER SEVERAL FALLS FROM STANDING AT REHAB AND HOME AND IN THE HOSPITAL. It was my pleasure to have seen and examined REBECCA BLAND. Today we have had a chance to go over subjective complaints, physical examination findings and treatments including the natural course history without intervention and various interventional options. The patients imaging demonstrates POST SURGICAL FINDINGS OF [id number] DECOMPRESSION AND FUSION WITH HARDWARE IN GOOD POSITION WITHOUT COMPLICATING PROCESS SEEN OF THE HARDWARE. 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 LIKELY EPIDURAL HEMATOMA IN THIS AREA DETECTED WELL. On physical exam, ,REBECCA BLAND demonstrates SEVERE TTP OF THE MID BACK ABOVE THE FUSION, KYPHOSIS, INABILITY TO AMBULATE DUE TO PAIN AND DEBILITY, LE WEAKNE SS, LE PARESTHESIAS. I have explained to the patient that as their condition progresses it will cause further neurological deficits and eventual paralysis. Based on the patients imaging, physical exam, and the rapid progression and disabling nature of their symptoms, at this time I recommend surgery in the form or a: OPEN TREATMENT T9 FRACTURE WITH STABILIZATION AND FUSION. I discussed the risk and benefits of this procedure at length with REBECCA BLAND. The patient agreed to considered pursuing the procedure abovementioned. Prior to surgery, she should follow up with her PCP (Cardio, ID, IM etc) for clearance. Questions were invited and answered, and the patient wishes to proceed as outlined below. Currently, I am recommendin. OPEN TREATMENT T9 FRACTURE WITH STABILIZATION AND FUSION 2. CARDIO CLEARANCE FOR SURGERY OBTAINED, PT IS HIGH RISK BUT HAS FRACTURE AND NEEDS SURGERY TO RECOVER FROM CURRENT CONDITION 3. MEDICAL CLEARANCE OBTAINED. 4. Review of surgical risks and benefits as well as an educational packet on the proposed surgical procedure. Risks: All surgical procedures come with inherent risks, including those related to positioning, anesthesia, intraoperative findings, and postoperative complications. It is important to understand that surgery does not come with any guarantee of a successful outcome as complications and adverse events are always possible. The patient was given a handout in office today discussing the surgical procedure and risks associated with the intervention, both of which were discussed with the patient. These risks include but are not limited to the following: Experiencing same, different or even worse symptoms in back, neck, arms, or legs compared to before surgery. Requiring further surgery or other forms of treatment presently or at some time in the future at same or other levels of the intended spine surgery. On an extreme but fortunately relatively rare basis severe complication such as blindness, stroke, heart attack, temporary and/or permanent nerve injury, paralysis, coma, or may occur, sometimes without known explanation. Surgical complications may include but are not limited to risk of infection, fluid accumulation in the surgical dissection site, including a seroma or hematoma, that requires additional surgery, wound drainage, bleeding, new numbness or weakness, vision changes/loss, spinal fluid leakage, non-healing and/or infected incision, headaches, difficulty or inability to swallow, hoarseness, hemopneumothorax, pneumothorax, impotence, retrograde ejaculation, vaginal dryness; injury to nerves, spinal cord, blood vessels, lymphatics or other vital organs (i.e., bowel injury, injury to the great vessels); heterotopic bone formation; complications related to the hardware such as screws, rods, cages including misplaced hardware, device failure, instrumentation at the wrong spine level, hardware fracture/breakage, or hardware loosening; vertebral failure of the spinal column above or below the newly placed hardware; retained surgical instrumentations or devices and the need for further surgery. Medical risks of the planned spine surgery include but are not limited to generalized Infections to the whole body or local areas outside of the surgical site (sepsis), heart attack, bleeding, anaphylaxis, meningitis, seizure, epilepsy, hearing loss, burn hyde, laceration of the head or other areas of the body, bruising, hypersensitivity of the skin, bladder over distension; allergic reaction; shoulder injury related to positioning; fat, blood and air clots to other areas of the body like heart, lungs, brain; failure of internal organs such as lungs, kidneys, liver and excessive bleeding. If blood transfusions are necessary, note that transfusions may cause intolerance reactions such as anaphylaxis or other complex reactions. Despite best efforts, the results of spine surgery might not heal in terms of bone, soft tissues such as skin, fascia, ligaments, and joints. Additionally, in order to achieve best possible results, spine surgery may be carried out beyond the initially planned levels and involve decompression, fusion including insertion of hardware at levels other than the original intended area of surgical interest change some portions of the procedure in order to ensure the best possible outcomes. With spine surgery and spinal fusion, there are different off label uses of instrumentation (devices, implants and hardware) as well as biological substances (bone morphogenic proteins, demineralized bone matrix) as well as using extra bone from allograft sources (i.e. cadaver bone) or autograft (iliac crest bone, ribs, or the spine itself). The patient has been given information about these practices and their inherent risks and benefits. The patient has had a chance to review all the listed information, has been given print outs detailing this information, and has had all his/her questions answered to their satisfaction. It was my pleasure to have seen and examined REBECCA BLAND. In our visit today we have had a chance to go over my understanding of our patient's current condition, the natural course history without intervention and various interventional options. Questions were invited and answered, and the patient wishes to proceed as outlined above. I have seen and examined the patient for 25 minutes and we have spent more than 50% of the time in repeat and detailed counseling about the patient's condition, its natural course history with out and as much as can be predicted with surgery and re-review of various surgical treatment options. In conclusion, REBECCA BLAND HAS requested we proceed with the above suggested surgery and are willing to accept risks and limitations of the suggested surgery as nature of the disease process and our best attempts at treatment for the condition. Thank you again for allowing us to be part of your patient's care. Please don't hesitate to contact me if you have any further questions. Signed and authenticated by: Bertin Guzman [facility] [address], [address] [address]
[2023-05-15] MEDS ORDERED: TRANEXAMIC 1,000 MG/100ML-NACL 1,000 MG in SALINE 1 100ML.BAG IVPB PRN (15:20)
[2023-05-15] MEDS ORDERED: THROMBIN (BOVINE) 5,000 UNIT VIAL TOPICAL ONE ×2 (15:42→15:52)
[2023-05-15] MEDS ORDERED: ceFAZolin 3,000 MG in SODIUM CHLORIDE 0.9% IRRIGATIO 3,000 ML IRRIGATION ONE (15:42)
[2023-05-15] MEDS ORDERED: GELATIN SPONGE,ABSORB (LARGE) 1 EACH SPONGE TOPICAL ONE (15:42)
[2023-05-15] MEDS ORDERED: GENTAMICIN 80 MG in SODIUM CHLORIDE 0.9% IRRIGATIO 3,000 ML IRRIGATION ONE (15:42)
[2023-05-15 16:16] LABS: Allen Test Performed? Yes
--- NOTE | 2023-05-15 16:18 | P.PN ---
Progress Note - Text Progress Note Date: 05/15/23 Chief Complaint: Falls This is a pleasant 68-year-old patient, follows with Dr. Malik Beyer. Patient on 03/31/2023 underwent lower back surgery by Dr.) Flores. Rather extensive surgery. Following that patient was discharged to [facility] for rehab. Patient then readmitted from April 13 through April 17. Was found to have pulmonary embolism. Was this time discharged to [facility]. Patient has been home for few days. Been having falls. Some low back pain. This morning patient was on the toilet and she fell down hitting the head. Did not pass out. Cervical collar was placed. CT scans of brain unremarkable. She been having some weakness of the lower extremity. Apparently at home the dog ran into her and she had fallen on her left side. She is also having trouble getting out of bed. Has been using a walker. No change in bowel or urine pattern. No fever or chills. Orthopedics/Dr. Flores was consulted I spoke to patient's son Jeronimo over the phone. Patient stopped taking her Xarelto since she left [facility]. She has signed herself out AMA within 24 hours. Left AMA. Patient be resumed Xarelto for now. May 14: Patient was seen by pulmonary. Patient has positive troponin. No chest pain. Cardiology was consulted. Patient's blood culture drawn on the growing gram-positive cocci in clusters. Patient has a normal white count. Afebrile. On IV Ancef. Chest CTA: Negative for PE. Pending surgery his Xarelto was not resumed. Seen by cardiology. Discussed at length with the patient. Since he has left the rehab AMA. She never resumed her Xarelto. Patient surgery has been postponed for now. Repeat blood cultures have been ordered today. Total time spent today about an hour with over 40 minutes of discussion. May 15: Saw the patient this morning. Very anxious to get the surgery done. Her blood cultures are coming showing coagulase-negative staph. Could be a contaminant. Patient has been on IV Ancef. Very little back pain if any. Patient will talk to Dr. Flores later this morning. Active Medications Acetaminophen (Acetaminophen Tab 325 Mg Tab) 650 mg PO Q6HR PRN PRN Reason: Mild Pain or Fever > 100.5 Last Admin: 05/14/23 21:31 Dose: 650 mg Carvedilol (Carvedilol 3.125 Mg Tab) 3.125 mg PO BID-W/MEALS [facility] Last Admin: 05/15/23 08:45 Dose: 3.125 mg Cyclobenzaprine HCl (Cyclobenzaprine 5 Mg Tab) 5 mg PO TID [facility] Last Admin: 05/15/23 15:04 Dose: Not Given Cyclobenzaprine HCl (Cyclobenzaprine 5 Mg Tab) 5 mg PO TID PRN PRN Reason: Muscle Spasm Ergocalciferol (Ergocalciferol 1,250 Mcg (50,000 Iu) Capsule) 1,250 mcg PO Q14D [facility] Hydromorphone HCl (Hydromorphone 0.5 Mg/0.5 Ml Syringe) 0.5 mg IVP Q3HR PRN PRN Reason: Pain Hydromorphone HCl (Hydromorphone 1 Mg/Ml 1 Ml Syringe) 1 mg IVP Q6HR PRN PRN Reason: Pain Hydroxyzine Pamoate (Hydroxyzine Pamoate 25 Mg Cap) 50 mg PO BID PRN PRN Reason: Anxiety Last Admin: 05/15/23 10:26 Dose: 50 mg Sodium Chloride (Saline 0.9%) 1,000 mls @ 75 mls/hr IV .[id number] [facility] Last Admin: 05/15/23 08:48 Dose: 75 mls/hr Cefazolin Sodium 2 gm/ Sodium (Chloride) 50 mls @ 100 mls/hr IVPB Q8H [facility]; Protocol Last Admin: 05/15/23 14:56 Dose: 50 mls Tranexamic Acid/Sodium (Chloride 1,000 mg/ IV Solution) 100 mls @ 200 mls/hr IVPB Q2HR PRN; Protocol PRN Reason: Bleeding Stop: 05/15/23 23:00 Lamotrigine (Lamotrigine 100 Mg Tab) 200 mg PO BID [facility] Last Admin: 05/15/23 08:45 Dose: 200 mg Levothyroxine Sodium (Levothyroxine 88 Mcg Tab) 88 mcg PO 0630 [facility] Last Admin: 05/15/23 06:13 Dose: 88 mcg Naloxone HCl (Naloxone 0.4 Mg/Ml 1 Ml Vial) 0.2 mg IV Q2M PRN PRN Reason: Opioid Reversal Patient's Own ( Linaclotide [Linzess ] 145 Mcg Capsule) 145 mcg PO DAILY PRN PRN Reason: Constipation Ondansetron HCl (Ondansetron 4 Mg/2 Ml Vial) 4 mg IVP Q8HR PRN PRN Reason: Nausea And Vomiting Last Admin: 05/12/23 23:03 Dose: 4 mg Oxycodone/Acetaminophen (Oxycodone-Apap 10-325mg 1 Each Tab) 1 each PO Q6HR PRN PRN Reason: Pain Last Admin: 05/15/23 08:48 Dose: 1 each Quetiapine Fumarate (Quetiapine 100 Mg Tab) 300 mg PO HS [facility] Last Admin: 05/14/23 21:31 Dose: 300 mg Senna (Sennosides 8.6 Mg Tab) 8.6 mg PO DAILY [facility] Sertraline HCl (Sertraline 100 Mg Tab) 100 mg PO DAILY [facility] Last Admin: 05/15/23 08:45 Dose: 100 mg Trazodone HCl (Trazodone Hcl 50 Mg Tab) 150 mg PO HS [facility] Last Admin: 05/14/23 21:31 Dose: 150 mg Past medical history to include: Iron deficiency anemia, gastric bypass, bipolar disorder, osteoarthritis, constipation possibly from narcotics Social history: Recently in rehab. Prior history of prescription drug abuse. [place]. Has been clean since 2014. Son lives at home with her Physical examination: VITAL SIGNS: 98.6, 91, 16, 139/81, 95% room air GENERAL: Lying in bed, comfortable EYES: Pupils equal. Conjunctiva normal. HEENT: External appearance of nose and ears normal, oral cavity grossly normal. NECK: Cervical collar HEART: First and second heart sounds are normal; no edema. LUNGS: Respiratory rate normal; clear to auscultation. ABDOMEN: Soft, nontender, liver spleen not palpable, no masses palpable. PSYCH: Alert and oriented x3; mood and affect normal. MUSCULOSKELETAL:No Clubbing/cyanosis;muscles-grossly intact. OA. NEUROLOGICAL: Cranial nerves grossly intact. Good logistics specialist in both the arms. Able to move both the lower extremity. INVESTIGATIONS, reviewed in the clinical context: May 15: Sodium 129 potassium 3.5 creatinine 0.36 May 14: White count 10.1 hemoglobin 10.7 sodium 129 potassium 3.5 creatinine 0.24. Troponin I: 0.140, 0.133, 0.125. proBNP 2870 Blood culture [May 12] gram-positive cocci in clusters CT brain: Negative for fracture May 12, 2023: White count 3.7 hemoglobin 11.5 platelets are 87 sodium 132 potassium 3.9 BUN 8 creatinine 0.26 UA: Leukoesterase positive WBC 182 bacteria moderate Chest x-ray film personally reviewed by me-unremarkable CT scan thoracolumbar spine: T9 vertebral body compression fracture with near complete height loss centrally new from March 31. Postsurgical changes. Previous labs: Hemoglobin 9.1 on April 06 and 13 on April 01 Assessment and plan: -This is a patient with lumbar surgery in March with Dr. Flores. Did better after surgery. Did go to rehab. Patient had a fall at home. 2 more falls after that. Some increased low back pain and weakness in the lower extremity. Being followed by Dr. Flores -Blood cultures growing coagulase-negative Staphylococcus. Could be contaminant. Repeat blood culture from May 14 pending. Continue IV Ancef -Acute T9 vertebral body compression fracture which is reported to be new from March 31. Patient had a fall 2 weeks ago when her dog and ran into her at home. Possible surgical intervention by Dr. Flores. -Acute pulmonary embolism. March 2023 l Apparently patient not been taking his Xarelto for at least last 2-1/[address] scan this admission negative for PE-pulmonary following - gait dysfunction following surgery. Patient did get rehab Does use a walker -Bipolar disorder Trazodone. Lamictal. Seroquel. -Hypothyroid Synthroid 88 g a day -Mild hyponatremia Increase oral intake -Acute UTI with cystitis. IV Ancef Patient to see Dr. Flores this afternoon. No fever no white count. Blood cultures could be contaminant. Continue IV Ancef in the meantime. Past Medical History Past Medical History: No Reported History Additional Past Medical History / Comment(s): IRON DEFICIENCY ANEMIA. History of Any Multi-Drug Resistant Organisms: None Reported Past Surgical History: Back Surgery, Bariatric Surgery, Orthopedic Surgery Additional Past Surgical History / Comment(s): right shoulder, left shoulder, gastric bypass Past Anesthesia/Blood Transfusion Reactions: No Reported Reaction Past Psychological History: Anxiety, Bipolar, Depression Smoking Status: Never smoker Past Alcohol Use History: Abuse Additional Past Alcohol Use History / Comment(s): Pt. drank 3 times a week heavily for 10 yrs. and quit 2 yrs. ago. Past Drug Use History: Prescription Drug Abuse
[2023-05-15 16:19] LABS: ABG Base Excess -1.6 mmol/L; ABG HCO3 22 mmol/L (21-25); ABG Oxygen Saturation >100.0 % (94-97); ABG PCO2 31 mmHg (35-45); ABG PH 7.45 (7.35-7.45); ABG PO2 220 mmHg (83-108)
[2023-05-15] MEDS ORDERED: IOPAMIDOL M200 10 ML VIAL MISCELLANE ONE (16:38)
[2023-05-15] MEDS ORDERED: VANCOMYCIN 1,000 MG VIAL MISCELLANE ONE (18:00)
[2023-05-15] MEDS ORDERED: HYDROmorphone 0.5 MG/0.5 ML SYRINGE IVP ONE ×6 (19:23→20:25)
[2023-05-15] MEDS ORDERED: ENALAPRILAT 1.25 MG/ML 1 ML VIAL IVP ONE (20:15)
[2023-05-15 20:49] LABS: Glucose,Whole Blood 88 mg/dL (70-110)
[2023-05-15] MEDS: HYDROmorphone 1 MG/ML 1 ML SYRINGE IVP PRN (22:01)
[2023-05-15] MEDS: traZODone HCL 50 MG TAB PO SCH (22:59)
[2023-05-15] MEDS: QUEtiapine 100 MG TAB PO SCH (22:59)
[2023-05-15] MEDS: HYDROmorphone 0.5 MG/0.5 ML SYRINGE IVP PRN (23:41)
[2023-05-16] MEDS: HYDROmorphone 1 MG/ML 1 ML SYRINGE IVP PRN (02:25)
[2023-05-16 04:40] LABS: Anisocytosis Slight; Basophils % (A) 0 %; Eosinophils % (A) 0 %; HCT 34.7 % (34.0-46.0); HGB 11.4 gm/dL (11.4-16.0); Hypochromasia Slight; Lymphocytes # (A) 0.3 k/uL (1.0-4.8); Lymphocytes % (A) 3 %; MCH 30.9 pg (25.0-35.0); MCHC 32.9 g/dL (31.0-37.0); MCV 93.9 fL (80.0-100.0); Mean Platelet Volume 7.7; Monocytes # (A) 0.7 k/uL (0-1.0); Monocytes % (A) 6 %; Neutrophils # (A) 10.1 k/uL (1.3-7.7); Neutrophils % (A) 90 %; Platelet Count 408 k/uL (150-450); WBC 11.2 k/uL (3.8-10.6)
[2023-05-16 04:46] LABS: African American GFR (CKD) >90 (>60 ml/min/1.73 sqM); Anion Gap 6 mmol/L; Blood Urea Nitrogen 8 mg/dL (7-17); Calcium 8.8 mg/dL (8.4-10.2); Carbon Dioxide 22 mmol/L (22-30); Chloride 102 mmol/L (98-107); Glucose 92 mg/dL (74-99); Non-African American GFR(CKD) >90 (>60 ml/min/1.73 sqM); Potassium 3.2 mmol/L (3.5-5.1); Sodium 130 mmol/L (137-145)
[2023-05-16] MEDS: HYDROmorphone 0.5 MG/0.5 ML SYRINGE IVP PRN ×2 (04:47→13:41)
[2023-05-16] MEDS: carvediloL 3.125 MG TAB PO SCH (06:46)
[2023-05-16] MEDS: ACETAMINOPHEN TAB 325 MG TAB PO PRN (06:46)
[2023-05-16] MEDS: LEVOTHYROXINE 88 MCG TAB PO SCH (06:46)
[2023-05-16] MEDS ORDERED: Potassium Replacement Protocol 1 EACH MISC MISCELLANE PRN (06:57)
[2023-05-16] MEDS ORDERED: HYDROmorphone 1 MG/ML 1 ML SYRINGE IVP PRN (07:08)
[2023-05-16] MEDS ORDERED: DEXAMETHASONE SOD PHOSPHATE 10 MG/ML 1 ML VIAL IVP STA (07:10)
[2023-05-16] MEDS: POTASSIUM CHLORIDE ER 20 MEQ TAB.ER PO SCH ×2 (08:00→09:31)
--- NOTE | 2023-05-16 08:22 | CT ---
EXAMINATION TYPE: CT thor lumbar spine wo con DATE OF EXAM: 05/16/2023 COMPARISON: None HISTORY: post surg CT DLP: 1753.8 mGycm Automated exposure control for dose reduction was used. Contrast: None Technique: Axial images 3 mm thick sections. Reconstructed images in the coronal and sagittal planes. FINDINGS: There is exaggeration of thoracic kyphosis. No spinal canal stenosis is evident Multilevel compression deformities are present. Vertebroplasty is present L3 L1 and T10, T9, T8, T7, T6. Pedicle screws and fixation rods extending from T6 to the sacrum. No spinal canal stenosis is evident. Note is made of small bilateral pleural effusions. IMPRESSION: 1. STATUS POST FIXATION THORACOLUMBAR SPINE
--- NOTE | 2023-05-16 09:19 | PN ---
PROGRESS NOTE SUBJECTIVE: This is a 68-year-old lady with history of hypertension, mitral regurgitation, aortic regurgitation that we were asked to see for preop cardiac evaluation. This morning, the patient appears comfortable at rest. An echocardiogram showed normal LV function. She remains confused, has recent history of pulmonary embolism. The patient is thought to be high-risk for perioperative cardiac events, and her Xarelto is on hold for surgery and will be resumed after surgery. She is on Xarelto because of pulmonary embolism. PHYSICAL EXAMINATION: Comfortable at rest. Heart rate is elevated as is the blood pressure. Chest exam reveals diminished air entry. Heart exam reveals first and second heart sounds. No gallop. Exam of extremities did not reveal any edema. Peripheral pulses are felt. ASSESSMENT: 1. Preop cardiac evaluation. 2. History of pulmonary embolism. 3. Uncontrolled hypertension and tachycardia. PLAN: We will increase the dose of Coreg for better control of blood pressure and heart rate. MMODL / IJN: [id number] /
[2023-05-16] MEDS: lamoTRIgine 100 MG TAB PO SCH ×2 (09:30→21:18)
[2023-05-16] MEDS: SENNOSIDES 8.6 MG TAB PO SCH (09:30)
[2023-05-16] MEDS: hydrOXYzine pamoate 25 MG CAP PO PRN (09:32)
[2023-05-16] MEDS: SERTRALINE 100 MG TAB PO SCH (10:30)
--- NOTE | 2023-05-16 11:11 | P.OP ---
Date of Procedure: 05/15/23 Preoperative Diagnosis: 1. T9 burst fracture AO type A4 2. Thoracic kyphotic deformity due to fracture 3. Proximal junctional failure above [id number] fusion due to fracture 4. LE weakness 5. Multiple falls from standing 6. Debility due to falls and fracture 7. Post-operative compliance issues 8. Complicated medical patient Postoperative Diagnosis: 1. T9 burst fracture AO type A4 2. Thoracic kyphotic deformity due to fracture 3. Proximal junctional failure above [id number] fusion due to fracture 4. LE weakness 5. Multiple falls from standing 6. Debility due to falls and fracture 7. Post-operative compliance issues 8. Complicated medical patient Procedure(s) Performed: 1. Open treatment T9 fracture with reduction 2. T6-T10 instrumented posterolateral fusion 3. T6-10 stabilization 4. T8-T10 bilateral decompressive laminectomy, partial medial facetectomy and foraminotomy 5. Vertebral augmentation T9 with Spine Se system for reduction and stabilization 6. Screw augmentation with bone cement CPTMOD 22 THIS CASE TOOK 75% LONGER THAN EXPECTED DUE TO CORMORBID CONDITIONS, HIGH PATIENT RISK FACTORS, EXTENT OF THORACOLUMBAR DISEASE AND HIGH TECHNICALITY OF THE CASE. use of IONM Implants: -Hedrick [place] screw and yara system -Magnatos Anesthesia: GETA Surgeon: Bertin Flores Instructor Adjunct Pharmacy Technician #1: Makayla Salas (WAS PRESENT AND ASSISTED WITH ALL ASPECTS OF THE CASE FROM POSITION TO CLOUSRE) Estimated Blood Loss (ml): 400 IV fluids (ml): 1,500 Urine output (ml): 400 Pathology: none sent Condition: stable Disposition: PACU Indications for Procedure: REBECCA BLAND is a 68 YO FEMALE presenting for evaluation of MID BACK PAIN, NECK PAIN, WEAKNESS AFTER SEVERAL FALLS FROM STANDING AT REHAB AND HOME AND IN THE HOSPITAL. It was my pleasure to have seen and examined REBECCA BLAND. Today we have had a chance to go over subjective complaints, physical examination findings and treatments including the natural course history without intervention and various interventional options. The patients imaging demonstrates POST SURGICAL FINDINGS OF [id number] DECOMPRESSION AND FUSION WITH HARDWARE IN GOOD POSITION WITHOUT COMPLICATING P ROCESS SEEN OF THE HARDWARE. 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 LIKELY EPIDURAL HEMATOMA IN THIS AREA DETECTED WELL. On physical exam, ,REBECCA BLAND demonstrates SEVERE TTP OF THE MID BACK ABOVE THE FUSION, KYPHOSIS, INABILITY TO AMBULATE DUE TO PAIN AND DEBILITY, LE WEAKNESS, LE PARESTHESIAS. I have explained to the patient that as their condition progresses it will cause further neurological deficits and eventual paralysis. Based on the patients imaging, physical exam, and the rapid progression and disabling nature of their symptoms, at this time I recommend surgery in the form or a: OPEN TREATMENT T9 FRACTURE WITH STABILIZATION AND FUSION. I discussed the risk and benefits of this procedure at length with REBECCA BLAND. The patient agreed to considered pursuing the procedure abovementioned. Prior to surgery, she should follow up with her PCP (Cardio, ID, IM etc) for clearance. Questions were invited and answered, and the patient wishes to proceed as outlined below. Currently, I am recommendin. OPEN TREATMENT T9 FRACTURE WITH STABILIZATION AND FUSION Description of Procedure: The patient was seen and examined in the preoperative area. All preoperative protocols were followed. Informed consent was obtained risks and benefits of the procedure were discussed at length. Risks including bleeding infection damage to the surrounding tissue and risk of reoperation were discussed with the patient. Risk of anesthesia up to and including was a discussed with the patient. These are outlined in the risk review. They were willing to accept these risks and all of the risks of surgery. The patient was given a weight-based dose of antibiotics in the form of [antibiotic]. The patient was seen and evaluated by the anesthesia team who deemed them fit for surgery. The site was marked, the patient was willing to proceed with the procedure. The patient was transferred to the operative suite by the Department of anesthesia. They were then drifted off to sleep by the department anesthesia and GETA was performed. The patient tolerated this well. [Almendarez catheter was placed by nursing staff, atraumatically]. Once confirmation of lines and ventilation the patient was transferred to a [prone Gerardo table very carefully]. All bony prominences including wrists, elbows, axilla, chest, hips, and thighs, and feet were padded very well. Special attention was paid to the genitalia and these were padded accordingly. SCDs were placed on bilateral lower extremities and were connected. Arms were well padded and placed tucked at her side well padded thumbs down. Once in position, again we confirmed good ventilation capabilities and that lines were running appropriately. The patient's thoracic spine was then exposed. 1010s were placed outlining the incision site. Standard alcohol was used to clean the incision site and allowed to dry. C-arm was used to biomark the patient and confirm level for incision which was marked with a skin marker. Operative briefing was performed with all teams and everyone in agreement to proceed. The patient was then prepped and draped in a normal sterile fashion. Timeout was then performed and all parties were in agreement with the procedure to be performed. Midline skin incision was made over the previously biomarked area and dissection taken down to the fascia and SP of T6-T11. Subperiosteal dissection was taken out over the lamina, facet joints and TP of these levels. Hardware was encountered at T10 and T11 to confirm levels. AP image was taken to confirm. Once this was confirmed and dissection was complete, pedicle marker was placed on the left at T6 for verification after 3D C arm spin. Tracker was placed on the SP of T10 and We then registered a 3D IntelliDOTm spine for [employer]. Once registered we confirmed accuracy. We then placed screws bilaterally at T6- T8 using Hedrick Alfonso using a navigated wellington tip to make a test pilot hole, navigated awl tap to create pedicle path feeling the pedicle with a ball tip feeler inbetween each step and then a navigated screw hyster driver to place a measured screw. Once all screws were placed AP and Lateral images were taken to confirm placement and they were in good position. We then used andrew alfonso in a similar fashion to prepare the pedicles and area for the Spine Se system in the T9 pedicles and vertebral body. Once this was prepped, the spine jacks were placed bilaterally and sequentially expanded under lateral flouro. Good reduction was seen of the vertebral body height which helped with orthodoxy of normal alignment and decreased kyphosis. We then placed cement into the spine jacks and vertebral body. There was no extravagation. We then cemented all upper screws in place as her bone was very osteoporotic at this point. Cementation was done under lateral imaging and there was no extravagation and the patient remained stable the entire time. We then turned our attention to decompression while cement set. Bilateral laminectomy, partial and complete facetectomy and foraminotomies were performed at T8-T10 for decompression of the cord and to prevent any pinching when reduction was done. There was large hematoma noted over T9 which was very unstable and so temp yara was placed for stability. Once decompression was complete the wound was irrigated. We then sized and selected rods to place along with yara to yara connecters. A set of yara to yara connectors was placed distal to T10 and a set was placed proximal to T10 on the yara in good position with good trajectory. We then sized and bent rods to allow for appropriate reduction without undue stress on top screws. Rods were then seated in connectors first and set screws tightened. We then sequentially and bilaterally reduced the rods into screws above up to T6 under lateral flouro. A motor run before and after the reduction showed no changes. We then placed set screws in all heads and final tightened all screws and connectors. Wound was irrigated and final images showed good reuction of alignment, stable screws and good hardware placement without any complicating process seen. The cord was not wrinkled and there was no motor changes. The facet joints and TPs were decorticated with high speed wellington for fusion. The wound was copiously irrigated with 3L ancef solution, 3L gent solution and 6L NSS. Surgicel was placed over the dura. A deep drain was placed and secured at the skin out a separate incision. 2g Vanco powder was placed in the wound. Magnatos and autograft was placed in the PL gutters for fusion and around facet joints. We then proceeded to closure. Deep fascia was closed with 1PDS in simple fashion followed by running unidirectional 1PDS stratafix. Deep subq was closed with 0 vicryl and subdermal was closed with 0PDS stratafix unidirectional. The skin was then approximated with skin juancarlos. Wound edges came together well. Drain was attached and had good suction. The wound was then cleaned and dressed steril with Optifoam dress ing, 4x4 and tegaderm. The patient was then carefully transferred back to their hospital bed atraumatically. The drain continued to hold suction. They were then transferred to the PACU by the department of anesthesia having tolerated the procedure well without complications. Seen in PACU the patient was doing well, VSS and she was waking up. Not following commands yet. The plan will be to go to ICU overnight for monitoring given her complex medical nature, high troponins, large surgical procedure and need for resuscitation. Dr. Hugo P[facility] contacted and has agreed to take her in ICU.
[2023-05-16 11:55] LABS: Glucose,Whole Blood 118 mg/dL (70-110)
[2023-05-16] MEDS: oxyCODONE-APAP 10-325MG 1 EACH TAB PO PRN ×3 (12:20→21:17)
--- NOTE | 2023-05-16 12:27 | P.PN ---
Subjective Progress Note Date: 05/16/23 Principal diagnosis: Acute T9 fracture I am seeing this patient in consultation today May 14, 2023 mostly for preoperative pulmonary clearance as the patient has a pulmonary embolism and is scheduled to go to the OR tomorrow with Dr. Flores for a open reduction internal fixation with revision of T7-T10 stabilization of a unstable T9 fracture. Patient is a 68-year-old white female with past medical history significant for recent hospitalization for elective T10 to pelvis revision decompression and fusion on March 31, 2023. Unfortunately, her postoperative recovery was complicated by a right-sided pulmonary embolism. Patient was briefly readmitted and initiated on anticoagulation inpatient. She was then sent to [facility] for rehab. Reportedly, the patient left [facility] and has since stopped her Xarelto independently. She has had multiple falls at home. She has had lower extremity weakness. She came to the emergency room yesterday afternoon complaining of severe back pain. Currently the patient is lethargic. She could be tired, as I am interviewing her at night. She also recently received pain medications. She is minimally participating with questions. She is an overall poor historian. She states that she is living with her son. She left [facility] because she did not like the care there. States that she has not been taking her Xarelto. Admits to falling at home and while here. CT of the lumbar and thoracic spine on arrival showed a new T9 vertebral body compression fracture with near complete height loss centrally. There was mild retropulsion up to 5 mm with mild to moderate spinal canal stenosis. There is also postsurgical changes without evidence of hardware fracture or malalignment. Brain CT on arrival without contrast did not show any acute intracranial hemorrhage or mass effect. CT of the C-spine did not show any acute fractures. There were some chronic degenerative changes. Lower extremities appear weak bilaterally. Denies any saddle anesthesia. Denies any bowel or bladder incontinence. Most recent CBC from 2 days ago has a white blood cell count of 13.7, hemoglobin 11.5, hematocrit 36.5, platelets 389. BMP on arrival has a sodium 132, testing 3.9, chloride 101, serum bicarb 21, BUN 8, creatinine 0.26, glucose 142. Urinalysis concerning for UTI. Positive for leukocytes and pyuria. She was started on Kefzol. Blood cultures positive for Staph epidermidis, likely contaminant. Repeat blood cultures are pending. As far as the patient's pulmonary status, she is currently on room air. She is very com fortable. She denies any chest pain or hemoptysis. She appears hemodynamically stable at this time. The patient is seen today May 15, 2023 in follow-up on the regular medical floor. She is currently resting comfortably in bed. Awake and alert in no acute distress. Maintaining good O2 saturations in the 90s on room air. She is afebrile. Hemodynamically stable. C-collar remains in place. CT angiogram ruled out pulmonary embolism. There was minimal pleural effusions with some adjacent compressive atelectasis. Echocardiogram revealed preserved left ventricular systolic function with an ejection fraction of 50 to 55%. Sodium 129. Potassium 3.5. Bicarb 20. BUN 12. Creatinine 0.26. She remains on cefazolin. Normal saline at 75 MLS per hour. Blood cultures are showing coagu lase negative staph. Patient was reevaluated today on 05/16/2023, she is now status post open treatm ent of T9 fracture with reduction, T6-T10 instrumented posterolateral fusion, T8-T10 bilateral decompressive laminectomy and partial medial facetectomy and foraminotomy, vertebral augmentation T9 with spine marvin system for reduction and stabilization and screw augmentation with bone cement. Patient was transferred to the ICU yesterday for observation, patient is doing well relatively asymptomatic she is on room air, hemodynamically stable, denies any cough wheezing or shortness of breath, as a matter fact patient is asking to be discharged home. WBC count is 11.2 hemoglobin 11.4 basic metabolic profile is normal except for low potassium of 3.2 renal profile is normal. Obviously the patient considering her recent pulmonary embolism needs to be anticoagulated at least placed on DVT prophylaxis, will let neurosurgery decide when to clear for anticoagulation therapy. Recent CT angiogram of the chest showed no evidence of pulmonary embolism. Objective - Vital Signs Vital signs: Vital Signs Temp 98 F 05/16/23 04:00 Pulse 102 H 05/16/23 11:00 Resp 24 05/16/23 11:00 BP 164/121 05/16/23 11:00 Pulse Ox 96 05/16/23 08:00 FiO2 Intake & Output 05/15/23 05/16/23 05/16/23 18:59 06:59 18:59 Intake Total 1862 800 725 Output Total 550 1045 1240 Balance 8560 -714 -985 Weight 82.6 kg Intake: IV 1552 800 225 Sodium Chloride 0.9% 1, 750 225 000 ml @ 75 mls/hr IV . [id number] BRYN Rx#:[id number] ceFAZolin 2 gm In Sodium 50 Chloride 0.9% 50 ml @ 100 mls/hr IVPB Q8H BRYN Rx#: [id number] Oral 500 Blood Product 310 Rc As-1 Unit 310 [id number] Output: Drainage 230 Back 230 Urine [phone] Estimated Blood Loss 150 Other: Voiding Method Bedpan Indwelling Catheter Indwelling Catheter Diaper ABP, PAP, CO, CI - Last Documented Arterial Blood Pressure 133/105 - Exam GENERAL EXAM: Awake, alert 68-year-old female, on room air, wearing a c-collar and fairly comfortable. HEAD: Normocephalic and atraumatic EYES: Normal reaction of pupils, equal size. NOSE: Clear with pink turbinates. THROAT: No erythema or exudates. NECK: No masses, no JVD. CHEST: No chest wall deformity. LUNGS: Equal air entry with no crackles, wheeze, rhonchi or dullness. No conversational dyspnea.. CVS: S1 and S2 normal with no audible murmur, regular rhythm. No extra heart sounds ABDOMEN: No hepatosplenomegaly, active bowel sounds, no guarding or rigidity. SPINE: No scoliosis or deformity SKIN: No rashes CENTRAL NERVOUS SYSTEM: There is bilateral lower extremity weakness, grade 4/4. Upper extremity strength graded 5/5. No focal deficits. No sensation disturbances. Patellar DTRs 1+ bilaterally. EXTREMITIES: There is no peripheral edema, clubbing, or cyanosis. Peripheral pulses are intact. - Labs CBC & Chem 7: 05/16/23 03:34 05/16/23 03:34 Labs: Abnormal Lab Results - Last 24 Hours (Table) 05/15/23 05/15/23 05/15/23 Range/Units 13:20 13:28 16:00 WBC (3.8-10.6) k/uL RBC (3.80-5.40) m/uL RDW (11.5-15.5) % Neutrophils # (1.3-7.7) k/uL Lymphocytes # (1.0-4.8) k/uL ABG pCO2 31 L (35-45) mmHg ABG pO2 220 H (83-108) mmHg ABG O2 Saturation >100.0 H (94-97) % Sodium 129 L (137-145) mmol/L Potassium (3.5-5.1) mmol/L Carbon Dioxide 20 L (22-30) mmol/L Creatinine 0.26 L (0.52-1.04) mg/dL POC Glucose (mg/dL) (70-110) mg/dL Crossmatch See Detail 05/16/23 05/16/23 05/16/23 Range/Units 03:34 03:34 11:54 WBC 11.2 H (3.8-10.6) k/uL RBC 3.70 L (3.80-5.40) m/uL RDW 16.0 H (11.5-15.5) % Neutrophils # 10.1 H (1.3-7.7) k/uL Lymphocytes # 0.3 L (1.0-4.8) k/uL ABG pCO2 (35-45) mmHg ABG pO2 (83-108) mmHg ABG O2 Saturation (94-97) % Sodium 130 L (137-145) mmol/L Potassium 3.2 L (3.5-5.1) mmol/L Carbon Dioxide (22-30) mmol/L Creatinine 0.24 L (0.52-1.04) mg/dL POC Glucose (mg/dL) 118 H (70-110) mg/dL Crossmatch Microbiology - Last 24 Hours (Table) 05/14/23 20:21 Urine Culture - Final Urine,Voided 05/14/23 18:01 Blood Culture - Preliminary Blood 05/14/23 04:50 Blood Culture - Preliminary Blood 05/12/23 10:25 Blood Culture Gram Stain - Preliminary Blood Blood Culture - Preliminary Coagulase Negative Staph 05/12/23 10:14 Blood Culture Gram Stain - Preliminary Blood Blood Culture - Preliminary Coagulase Negative Staph Assessment and Plan Assessment: Impression: T9 burst fracture AO type A4 Proximal junctional failure above [id number] fusion due to fracture Multiple falls from standing Status post Open treatment T9 fracture with reduction,T6-T10 instrumented posterolateral fusion,T8-T10 bilateral decompressive laminectomy, partial medial facetectomy and foraminotomy,Vertebral augmentation T9 with Spine Marvin system for reduction and stabilization,Screw augmentation with bone cement, postoperative day #1. Recent development of provoked right-sided pulmonary embolism, was started on anticoagulation inpatient and transitioned to Xarelto on discharge. She was discharged to [facility], where she left AGAINST MEDICAL ADVICE, and has since stopped her Xarelto on her own. Chest CT angio at time of diagnosis, on April 15, 2023, was positive for pulmonary emboli on the right, beginning at the bifurcation extending into the right middle and lower lobes. CT angiogram from 05/14/2023 revealed no evidence of pulmonary embolism. Suspected urinary tract infection Positive blood culture for staph epidermidis, contaminated blood culture History of hypothyroidism History of hypertension History of anxiety/depression History of bipolar Former tobacco smoker Recommendation: Continue present supportive care measures Consider transferring the patient out of the ICU to a medical surgical floor Postoperative orders as. Orthopedics on the case. Incentive spirometry Patient should have some form of anticoagulation therapy and will let the orthopedic surgeon decide whether the patient needs just DVT prophylaxis or full treatment, I would recommend full treatment with anticoagulation therapy since the patient had recent history of pulmonary embolism unless felt to be contraindicated by orthopedic surgery at this point. But at least the patient should receive some sort of prophylaxis./Lovenox. Time with Patient: Less than 30
--- NOTE | 2023-05-16 12:41 | P.PN ---
Subjective Progress Note Date: 05/16/23 Principal diagnosis: Multiple falls Bilateral lower extremity weakness Patient seen and examined this morning in the ICU. Patient is resting comfortably in chair at bedside. She is moderately confused with repetitive discussion of situation and plan of care. Nursing staff notified earlier in the morning that patients pain was not well controlled through the night. Medicatio ns had been adjusted. Patient states her pain is currently controlled on current regimen. Surgical incision to the thoracic spine, dressing is intact with hemovac present. She denies any numbness/tingling to lower extremities. Encourage patient to continue to work with therapy and be up in chair with all meals. Chair alarm and bed alarms need to be activated due to impulsive behavior. Objective - Vital Signs Vital signs: Vital Signs Temp 98 F 05/16/23 04:00 Pulse 102 H 05/16/23 11:00 Resp 24 05/16/23 11:00 BP 164/121 05/16/23 11:00 Pulse Ox 96 05/16/23 08:00 FiO2 Intake & Output 05/15/23 05/16/23 05/16/23 18:59 06:59 18:59 Intake Total 1862 800 725 Output Total 550 1045 1240 Balance 1312 -245 -515 Weight 82.6 kg Intake: IV 1552 800 225 Sodium Chloride 0.9% 1, 750 225 000 ml @ 75 mls/hr IV . [id number] [facility] Rx#:[id number] ceFAZolin 2 gm In Sodium 50 Chloride 0.9% 50 ml @ 100 mls/hr IVPB Q8H [facility] Rx#: [id number] Oral 500 Blood Product 310 Rc As-1 Unit 310 [id number] Output: Drainage 230 Back 230 Urine 299 561 5012 Estimated Blood Loss 150 Other: Voiding Method Bedpan Indwelling Catheter Indwelling Catheter Diaper ABP, PAP, CO, CI - Last Documented Arterial Blood Pressure 133/105 - Exam Physical Examination General: The patient is awake and alert, in no acute distress Skin: Skin is warm and dry with no obvious rashes or lesions. Thoracic spine incision, dressing is CDI with hemovac present. Eye: Pupils are equal, round and reactive to light, extra-ocular movements are intact; there is normal conjunctiva bilaterally. Neck: The neck is supple, there is no tenderness and ROM intact. Cardiovascular: There is a regular rate and rhythm. No murmur, rub or gallop is appreciated. Respiratory: Lungs are clear to auscultation, respirations are non-labored, breath sounds are equal. Gastrointestinal: Soft, non-distended, non-tender abdomen. Back: There is no tenderness to palpation in the midline, paralumbar, parathoracic or buttocks region. There is no obvious deformity . Musculoskeletal: ROM limited secondary to pain and stiffness from surgical proc edure. Muscle strength in all major muscle groups of bilateral upper extremities 4/5, bilateral lower extremities 4/5. Neurological: CN 2-12 intact. There are no obvious motor or sensory deficits. M ovement and coordination equal and intact. Sensory exam to light touch intact C5-T1 and intact from L2-S1. Reflexes 2/4 in bilateral upper and lower extremities. Negative Hoffmans, babinski, and clonus signs. Psychiatric: Cooperative, appropriate mood & affect, moderately confused. - Labs CBC & Chem 7: 05/16/23 03:34 05/16/23 03:34 Labs: Abnormal Lab Results - Last 24 Hours (Table) 05/15/23 05/15/23 05/15/23 Range/Units 13:20 13:28 16:00 WBC (3.8-10.6) k/uL RBC (3.80-5.40) m/uL RDW (11.5-15.5) % Neutrophils # (1.3-7.7) k/uL Lymphocytes # (1.0-4.8) k/uL ABG pCO2 31 L (35-45) mmHg ABG pO2 220 H (83-108) mmHg ABG O2 Saturation >100.0 H (94-97) % Sodium 129 L (137-145) mmol/L Potassium (3.5-5.1) mmol/L Carbon Dioxide 20 L (22-30) mmol/L Creatinine 0.26 L (0.52-1.04) mg/dL POC Glucose (mg/dL) (70-110) mg/dL Crossmatch See Detail 05/16/23 05/16/23 05/16/23 Range/Units 03:34 03:34 11:54 WBC 11.2 H (3.8-10.6) k/uL RBC 3.70 L (3.80-5.40) m/uL RDW 16.0 H (11.5-15.5) % Neutrophils # 10.1 H (1.3-7.7) k/uL Lymphocytes # 0.3 L (1.0-4.8) k/uL ABG pCO2 (35-45) mmHg ABG pO2 (83-108) mmHg ABG O2 Saturation (94-97) % Sodium 130 L (137-145) mmol/L Potassium 3.2 L (3.5-5.1) mmol/L Carbon Dioxide (22-30) mmol/L Creatinine 0.24 L (0.52-1.04) mg/dL POC Glucose (mg/dL) 118 H (70-110) mg/dL Crossmatch Microbiology - Last 24 Hours (Table) 05/14/23 20:21 Urine Culture - Final Urine,Voided 05/14/23 18:01 Blood Culture - Preliminary Blood 05/14/23 04:50 Blood Culture - Preliminary Blood 05/12/23 10:25 Blood Culture Gram Stain - Preliminary Blood Blood Culture - Preliminary Coagulase Negative Staph 05/12/23 10:14 Blood Culture Gram Stain - Preliminary Blood Blood Culture - Preliminary Coagulase Negative Staph Assessment and Plan Assessment: Post-Op day 1: T9 ORIF with revision T6-T10 stabilization Multiple falls Bilateral lower extremity weakness s/p revision [id number] decompression fusion surgery on 03/31/2023 Plan: -Appreciate home sales consultant and team management. -Activity: Ambulate QID, OOB all meals, up and about, limit lifting bending twisting to less than 5 lbs. Use walker or cane if needed for stability. -Daily PT/OT, increase ambulation strength and balance. -Brace when up and about, not needed in bed or chair -Family need to bring in TLSO brace, this is not needed for patient to work with PT -Pain control: Adequate at this time -Meds: reviewed -GI ppx: senna, Miralax -DC weiss when up and about, bedside commode if needed -DVT PPX: Lovenox -Hygiene: Shower today. Maintain dressing clean and dry. -Drains: Maintain for now. Continue to monitor and record output q shift. -Encourage IS 10x/hr -Dispo: Anticipate discharge to [facility] within 48-72 hrs. *I reviewed and discussed this case with my attending Dr. Flores, whom has reviewed this chart and films and is in agreement with assessment and plan of care as outlined above. I have personally seen and examined the patient, performed the documentation and the assessment and plan as written. Number of minutes spent on the visit: 20m.
--- NOTE | 2023-05-16 15:16 | P.PN ---
Progress Note - Text Progress Note Date: 05/16/23 Chief Complaint: Falls This is a pleasant 68-year-old patient, follows with Dr. Malik Beyer. Patient on 03/31/2023 underwent lower back surgery by Dr.) Flores. Rather extensive surgery. Following that patient was discharged to [facility] for rehab. Patient then readmitted from April 13 through April 17. Was found to have pulmonary embolism. Was this time discharged to [facility]. Patient has been home for few days. Been having falls. Some low back pain. This morning patient was on the toilet and she fell down hitting the head. Did not pass out. Cervical collar was placed. CT scans of brain unremarkable. She been having some weakness of the lower extremity. Apparently at home the dog ran into her and she had fallen on her left side. She is also having trouble getting out of bed. Has been using a walker. No change in bowel or urine pattern. No fever or chills. Orthopedics/Dr. Flores was consulted I spoke to patient's son Jeronimo over the phone. Patient stopped taking her Xarelto since she left [facility]. She has signed herself out AMA within 24 hours. Left AMA. Patient be resumed Xarelto for now. May 14: Patient was seen by pulmonary. Patient has positive troponin. No chest pain. Cardiology was consulted. Patient's blood culture drawn on the growing gram-positive cocci in clusters. Patient has a normal white count. Afebrile. On IV Ancef. Chest CTA: Negative for PE. Pending surgery his Xarelto was not resumed. Seen by cardiology. Discussed at length with the patient. Since he has left the rehab AMA. She never resumed her Xarelto. Patient surgery has been postponed for now. Repeat blood cultures have been ordered today. Total time spent today about an hour with over 40 minutes of discussion. May 15: Saw the patient this morning. Very anxious to get the surgery done. Her blood cultures are coming showing coagulase-negative staph. Could be a contaminant. Patient has been on IV Ancef. Very little back pain if any. Patient will talk to Dr. Flores later this morning. May 16: Postoperatively patient went to the ICU. This morning feeling well. Sitting up in a chair. Pain controlled. Occasionally confused. Son at the bedside. Blood pressure was up. Medication adjusted. IV Ancef. Repeat blood culture showing no growth after 48 hours. Active Medications Acetaminophen (Acetaminophen Tab 325 Mg Tab) 650 mg PO Q6HR PRN PRN Reason: Mild Pain or Fever > 100.5 Last Admin: 05/16/23 06:46 Dose: 650 mg Carvedilol (Carvedilol 12.5 Mg Tab) 12.5 mg PO BID-W/MEALS [facility] Cyclobenzaprine HCl (Cyclobenzaprine 10 Mg Tab) 10 mg PO TID PRN PRN Reason: Muscle Spasm Enoxaparin Sodium (Enoxaparin 40 Mg/0.4 Ml Syringe) 40 mg SQ DAILY [facility] Ergocalciferol (Ergocalciferol 1,250 Mcg (50,000 Iu) Capsule) 1,250 mcg PO Q14D [facility] Hydromorphone HCl (Hydromorphone 0.5 Mg/0.5 Ml Syringe) 0.5 mg IVP Q3HR PRN PRN Reason: Pain Last Admin: 05/16/23 13:41 Dose: 0.5 mg Hydromorphone HCl (Hydromorphone 1 Mg/Ml 1 Ml Syringe) 1 mg IVP Q3HR PRN PRN Reason: Pain Last Admin: 05/16/23 08:19 Dose: 1 mg Hydroxyzine Pamoate (Hydroxyzine Pamoate 25 Mg Cap) 50 mg PO BID PRN PRN Reason: Anxiety Last Admin: 05/16/23 09:32 Dose: 50 mg Sodium Chloride (Saline 0.9%) 1,000 mls @ 20 mls/hr IV .Q24H [facility] Last Admin: 05/15/23 22:06 Dose: 75 mls/hr Cefazolin Sodium 2 gm/ Sodium (Chloride) 50 mls @ 100 mls/hr IVPB Q8H [facility]; Protocol Last Admin: 05/16/23 10:40 Dose: 100 mls/hr Lamotrigine (Lamotrigine 100 Mg Tab) 200 mg PO BID [facility] Last Admin: 05/16/23 09:30 Dose: 200 mg Levothyroxine Sodium (Levothyroxine 88 Mcg Tab) 88 mcg PO 0630 [facility] Last Admin: 05/16/23 06:46 Dose: 88 mcg Miscellaneous Information (Potassium Replacement Protocol 1 Each Misc) 1 each MISCELLANE DAILY PRN; Protocol PRN Reason: Per Protocol Naloxone HCl (Naloxone 0.4 Mg/Ml 1 Ml Vial) 0.2 mg IV Q2M PRN PRN Reason: Opioid Reversal Patient's Own ( Linaclotide [Linzess ] 145 Mcg Capsule) 145 mcg PO DAILY PRN PRN Reason: Constipation Ondansetron HCl (Ondansetron 4 Mg/2 Ml Vial) 4 mg IVP Q8HR PRN PRN Reason: Nausea And Vomiting Last Admin: 05/12/23 23:03 Dose: 4 mg Oxycodone/Acetaminophen (Oxycodone-Apap 10-325mg 1 Each Tab) 1 each PO Q4HR PRN PRN Reason: Pain Last Admin: 05/16/23 12:20 Dose: 1 each Quetiapine Fumarate (Quetiapine 100 Mg Tab) 300 mg PO HS [facility] Last Admin: 05/15/23 22:59 Dose: Not Given Senna (Sennosides 8.6 Mg Tab) 8.6 mg PO DAILY [facility] Last Admin: 05/16/23 09:30 Dose: 8.6 mg Sertraline HCl (Sertraline 100 Mg Tab) 100 mg PO DAILY [facility] Last Admin: 05/16/23 10:30 Dose: 100 mg Trazodone HCl (Trazodone Hcl 50 Mg Tab) 150 mg PO [facility] Last Admin: 05/15/23 22:59 Dose: Not Given Past medical history to include: Iron deficiency anemia, gastric bypass, bipolar disorder, osteoarthritis, constipation possibly from narcotics Social history: Recently in rehab. Prior history of prescription drug abuse. [place]. Has been clean since 2014. Son lives at home with her Physical examination: VITAL SIGNS: 97.6, 109, 18, 164/92, 95% room air GENERAL: Sitting up in a chair, comfortable EYES: Pupils equal. Conjunctiva normal. HEENT: External appearance of nose and ears normal, oral cavity grossly normal. NECK: Cervical collar HEART: First and second heart sounds are normal; no edema. LUNGS: Respiratory rate normal; clear to auscultation. ABDOMEN: Soft, nontender, liver spleen not palpable, no masses palpable. PSYCH: Answers questions. Sometimes repeats questions. MUSCULOSKELETAL:No Clubbing/cyanosis;muscles-grossly intact. OA. NEUROLOGICAL: Cranial nerves grossly intact. 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 Able to move both the lower extremity. INVESTIGATIONS, reviewed in the clinical context: May 16: White count 11.2 hemoglobin 11.4 potassium 3.2 creatinine 0.24 May 15: Sodium 129 potassium 3.5 creatinine 0.36 May 14: White count 10.1 hemoglobin 10.7 sodium 129 potassium 3.5 creatinine 0.24. Troponin I: 0.140, 0.133, 0.125. proBNP 2870 Blood culture [May 12] gram-positive cocci in clusters CT brain: Negative for fracture May 12, 2023: White count 3.7 hemoglobin 11.5 platelets are 87 sodium 132 potassium 3.9 BUN 8 creatinine 0.26 UA: Leukoesterase positive WBC 182 bacteria moderate Chest x-ray film personally reviewed by me-unremarkable CT scan thoracolumbar spine: T9 vertebral body compression fracture with near complete height loss centrally new from March 31. Postsurgical changes. Previous labs: Hemoglobin 9.1 on April 06 and 13 on April 01 Assessment and plan: -This is a patient with lumbar surgery in March with Dr. Flores. Did better after surgery. Did go to rehab. Patient had a fall at home. 2 more falls after that. Some increased low back pain and weakness in the lower extremity. Being followed by Dr. Flores -Essential hypertension, uncontrolled Coreg 12.5 p.o. twice daily - -Blood cultures growing coagulase-negative Staphylococcus. Could be contaminant. Repeat blood culture from May 14 pending. Continue IV Ancef -Acute T9 vertebral body compression fracture which is reported to be new from March 31. Patient had a fall 2 weeks ago when her dog and ran into her at home. Open treatment of T9 fracture with reduction. T6-T10 instrumented post lateral fusion. With stabilization. Decompressive laminectomy. Etc. with Dr. Flores May 16, 2023 -Acute pulmonary embolism. March 2023 l Apparently patient not been taking his Xarelto for at least last 2-1/[address] scan this admission negative for PE-pulmonary following Pulmonary following - gait dysfunction following surgery. Patient did get rehab Does use a walker -Bipolar disorder Trazodone. Lamictal. Seroquel. -Hypothyroid Synthroid 88 g a day -Mild hyponatremia Increase oral intake -Acute UTI with cystitis. IV Ancef Coreg increased for blood pressure. IV Ancef to continue. Anticoagulation to be resumed when okay with surgery and Dr. Arias. Past Medical History Past Medical History: No Reported History Additional Past Medical History / Comment(s): IRON DEFICIENCY ANEMIA. History of Any Multi-Drug Resistant Organisms: None Reported Past Surgical History: Back Surgery, Bariatric Surgery, Orthopedic Surgery Additional Past Surgical History / Comment(s): right shoulder, left shoulder, gastric bypass Past Anesthesia/Blood Transfusion Reactions: No Reported Reaction Past Psychological History: Anxiety, Bipolar, Depression Smoking Status: Never smoker Past Alcohol Use History: Abuse Additional Past Alcohol Use History / Comment(s): Pt. drank 3 times a week heavily for 10 yrs. and quit 2 yrs. ago. Past Drug Use History: Prescription Drug Abuse
[2023-05-16] MEDS: carvediloL 12.5 MG TAB PO SCH (16:52)
[2023-05-16] MEDS: QUEtiapine 100 MG TAB PO SCH (21:16)
[2023-05-16] MEDS: traZODone HCL 50 MG TAB PO SCH (21:17)
[2023-05-17] MEDS: CYCLOBENZAPRINE 10 MG TAB PO PRN ×2 (02:27→19:42)
[2023-05-17] MEDS: oxyCODONE-APAP 10-325MG 1 EACH TAB PO PRN ×4 (02:27→16:49)
[2023-05-17] MEDS: SODIUM CHLORIDE 0.9% 1,000 ML IV SCH (06:02)
[2023-05-17] MEDS: carvediloL 12.5 MG TAB PO SCH ×2 (06:29→16:49)
[2023-05-17] MEDS: LEVOTHYROXINE 88 MCG TAB PO SCH (06:29)
[2023-05-17] MEDS: SERTRALINE 100 MG TAB PO SCH (07:40)
[2023-05-17] MEDS: lamoTRIgine 100 MG TAB PO SCH ×2 (07:40→19:42)
[2023-05-17] MEDS: SENNOSIDES 8.6 MG TAB PO SCH (07:40)
[2023-05-17] MEDS: hydrOXYzine pamoate 25 MG CAP PO PRN (07:40)
[2023-05-17] MEDS ORDERED: ENOXAPARIN 40 MG/0.4 ML SYRINGE SQ SCH (09:00)
--- NOTE | 2023-05-17 09:22 | P.PN ---
Progress Note - Text Progress Note Date: 05/17/23 Chief Complaint: Falls This is a pleasant 68-year-old patient, follows with Dr. Malik Beyer. Patient on 03/31/2023 underwent lower back surgery by Dr.) Flores. Rather extensive surgery. Following that patient was discharged to [facility] for rehab. Patient then readmitted from April 13 through April 17. Was found to have pulmonary embolism. Was this time discharged to [facility]. Patient has been home for few days. Been having falls. Some low back pain. This morning patient was on the toilet and she fell down hitting the head. Did not pass out. Cervical collar was placed. CT scans of brain unremarkable. She been having some weakness of the lower extremity. Apparently at home the dog ran into her and she had fallen on her left side. She is also having trouble getting out of bed. Has been using a walker. No change in bowel or urine pattern. No fever or chills. Orthopedics/Dr. Flores was consulted I spoke to patient's son Jeronimo over the phone. Patient stopped taking her Xarelto since she left [facility]. She has signed herself out AMA within 24 hours. Left AMA. Patient be resumed Xarelto for now. May 14: Patient was seen by pulmonary. Patient has positive troponin. No chest pain. Cardiology was consulted. Patient's blood culture drawn on the growing gram-positive cocci in clusters. Patient has a normal white count. Afebrile. On IV Ancef. Chest CTA: Negative for PE. Pending surgery his Xarelto was not resumed. Seen by cardiology. Discussed at length with the patient. Since he has left the rehab AMA. She never resumed her Xarelto. Patient surgery has been postponed for now. Repeat blood cultures have been ordered today. Total time spent today about an hour with over 40 minutes of discussion. May 15: Saw the patient this morning. Very anxious to get the surgery done. Her blood cultures are coming showing coagulase-negative staph. Could be a contaminant. Patient has been on IV Ancef. Very little back pain if any. Patient will talk to Dr. Flores later this morning. May 16: Postoperatively patient went to the ICU. This morning feeling well. Sitting up in a chair. Pain controlled. Occasionally confused. Son at the bedside. Blood pressure was up. Medication adjusted. IV Ancef. Repeat blood culture showing no growth after 48 hours. May 17: Resting in bed. Comfortable. Pain controlled. Blood cultures confirmed Staph epidermidis. Repeat cultures have been negative. Keep on IV Ancef for now. Active Medications Acetaminophen (Acetaminophen Tab 325 Mg Tab) 650 mg PO Q6HR PRN PRN Reason: Mild Pain or Fever > 100.5 Last Admin: 05/16/23 06:46 Dose: 650 mg Carvedilol (Carvedilol 12.5 Mg Tab) 12.5 mg PO BID-W/MEALS [facility] Last Admin: 05/17/23 06:29 Dose: 12.5 mg Cyclobenzaprine HCl (Cyclobenzaprine 10 Mg Tab) 10 mg PO TID PRN PRN Reason: Muscle Spasm Last Admin: 05/17/23 02:27 Dose: 10 mg Enoxaparin Sodium (Enoxaparin 40 Mg/0.4 Ml Syringe) 40 mg SQ DAILY [facility] Last Admin: 05/17/23 07:39 Dose: 40 mg Ergocalciferol (Ergocalciferol 1,250 Mcg (50,000 Iu) Capsule) 1,250 mcg PO Q14D [facility] Hydromorphone HCl (Hydromorphone 0.5 Mg/0.5 Ml Syringe) 0.5 mg IVP Q3HR PRN PRN Reason: Pain Last Admin: 05/16/23 13:41 Dose: 0.5 mg Hydromorphone HCl (Hydromorphone 1 Mg/Ml 1 Ml Syringe) 1 mg IVP Q3HR PRN PRN Reason: Pain Last Admin: 05/16/23 08:19 Dose: 1 mg Hydroxyzine Pamoate (Hydroxyzine Pamoate 25 Mg Cap) 50 mg PO BID PRN PRN Reason: Anxiety Last Admin: 05/17/23 07:40 Dose: 50 mg Sodium Chloride (Saline 0.9%) 1,000 mls @ 20 mls/hr IV .Q24H [facility] Last Admin: 05/17/23 06:02 Dose: Not Given Cefazolin Sodium 2 gm/ Sodium (Chloride) 50 mls @ 100 mls/hr IVPB Q8H [facility]; Protocol Last Admin: 05/17/23 02:24 Dose: 100 mls/hr Lamotrigine (Lamotrigine 100 Mg Tab) 200 mg PO BID [facility] Last Admin: 05/17/23 07:40 Dose: 200 mg Levothyroxine Sodium (Levothyroxine 88 Mcg Tab) 88 mcg PO 0630 [facility] Last Admin: 05/17/23 06:29 Dose: 88 mcg Miscellaneous Information (Potassium Replacement Protocol 1 Each Misc) 1 each MISCELLANE DAILY PRN; Protocol PRN Reason: Per Protocol Naloxone HCl (Naloxone 0.4 Mg/Ml 1 Ml Vial) 0.2 mg IV Q2M PRN PRN Reason: Opioid Reversal Patient's Own ( Linaclotide [Linzess ] 145 Mcg Capsule) 145 mcg PO DAILY PRN PRN Reason: Constipation Ondansetron HCl (Ondansetron 4 Mg/2 Ml Vial) 4 mg IVP Q8HR PRN PRN Reason: Nausea And Vomiting Last Admin: 05/12/23 23:03 Dose: 4 mg Oxycodone/Acetaminophen (Oxycodone-Apap 10-325mg 1 Each Tab) 1 each PO Q4HR PRN PRN Reason: Pain Last Admin: 05/17/23 07:40 Dose: 1 each Quetiapine Fumarate (Quetiapine 100 Mg Tab) 300 mg PO [facility] Last Admin: 05/16/23 21:16 Dose: 300 mg Senna (Sennosides 8.6 Mg Tab) 8.6 mg PO DAILY [facility] Last Admin: 05/17/23 07:40 Dose: 8.6 mg Sertraline HCl (Sertraline 100 Mg Tab) 100 mg PO DAILY [facility] Last Admin: 05/17/23 07:40 Dose: 100 mg Trazodone HCl (Trazodone Hcl 50 Mg Tab) 150 mg PO [facility] Last Admin: 05/16/23 21:17 Dose: 150 mg Past medical history to include: Iron deficiency anemia, gastric bypass, bipolar disorder, osteoarthritis, constipation possibly from narcotics Social history: Recently in rehab. Prior history of prescription drug abuse. [place]. Has been clean since 2015. Son lives at home with her Physical examination: VITAL SIGNS: 98.1, 106, 20, 124/81, 95% room air GENERAL: Resting in bed comfortable EYES: Pupils equal. Conjunctiva normal. HEENT: External appearance of nose and ears normal, oral cavity grossly normal. NECK: Cervical collar HEART: First and second heart sounds are normal; no edema. LUNGS: Respiratory rate normal; clear to auscultation. ABDOMEN: Soft, nontender, liver spleen not palpable, no masses palpable. PSYCH: Answers questions. Sometimes repeats questions. MUSCULOSKELETAL:No Clubbing/cyanosis;muscles-grossly intact. OA. NEUROLOGICAL: Cranial nerves grossly intact. 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 Able to move both the lower extremity. INVESTIGATIONS, reviewed in the clinical context: May 16: White count 11.2 hemoglobin 11.4 potassium 3.2 creatinine 0.24 May 15: Sodium 129 potassium 3.5 creatinine 0.36 May 14: White count 10.1 hemoglobin 10.7 sodium 129 potassium 3.5 creatinine 0.24. Troponin I: 0.140, 0.133, 0.125. proBNP 2870 Blood culture [May 12] Staphylococcus epidermidis. May 14: Pending CT brain: Negative for fracture May 12, 2023: White count 3.7 hemoglobin 11.5 platelets are 87 sodium 132 potassium 3.9 BUN 8 creatinine 0.26 UA: Leukoesterase positive WBC 182 bacteria moderate Chest x-ray film personally reviewed by me-unremarkable CT scan thoracolumbar spine: T9 vertebral body compression fracture with near complete height loss centrally new from March 31. Postsurgical changes. Previous labs: Hemoglobin 9.1 on April 06 and 13 on April 01 Assessment and plan: -This is a patient with lumbar surgery in March with Dr. Flores. Did better after surgery. Did go to rehab. Patient had a fall at home. 2 more falls after that. Some increased low back pain and weakness in the lower extremity. Being followed by Dr. Flores -Essential hypertension, uncontrolled Coreg 12.5 p.o. twice daily - -Blood cultures growing coagulase-negative Staphylococcus. Could be contaminant. Repeat blood culture from May 14 pending. Continue IV Ancef -Acute T9 vertebral body compression fracture which is reported to be new from March 31. Patient had a fall 2 weeks ago when her dog and ran into her at home. Open treatment of T9 fracture with reduction. T6-T10 instrumented post lateral fusion. With stabilization. Decompressive laminectomy. Etc. with Dr. Flores May 16, 2023 -Acute pulmonary embolism. March 2023 l Apparently patient not been taking his Xarelto for at least last 2-1/[address] scan this admission negative for PE-pulmonary following Pulmonary following - gait dysfunction following surgery. Patient did get rehab Does use a walker -Bipolar disorder Trazodone. Lamictal. Seroquel. -Hypothyroid Synthroid 88 g a day -Mild hyponatremia Increase oral intake -Acute UTI with cystitis. IV Ancef Continue IV Ancef for now. Other medications to continue Past Medical History Past Medical History: No Reported History Additional Past Medical History / Comment(s): IRON DEFICIENCY ANEMIA. History of Any Multi-Drug Resistant Organisms: None Reported Past Surgical History: Back Surgery, Bariatric Surgery, Orthopedic Surgery Additional Past Surgical History / Comment(s): right shoulder, left shoulder, gastric bypass Past Anesthesia/Blood Transfusion Reactions: No Reported Reaction Past Psychological History: Anxiety, Bipolar, Depression Smoking Status: Never smoker Past Alcohol Use History: Abuse Additional Past Alcohol Use History / Comment(s): Pt. drank 3 times a week heavily for 10 yrs. and quit 2 yrs. ago. Past Drug Use History: Prescription Drug Abuse
[2023-05-17 10:37] LABS: African American GFR (CKD) >90 (>60 ml/min/1.73 sqM); Anion Gap 10 mmol/L; Blood Urea Nitrogen 13 mg/dL (7-17); Calcium 8.9 mg/dL (8.4-10.2); Carbon Dioxide 16 mmol/L (22-30); Chloride 97 mmol/L (98-107); Glucose 96 mg/dL (74-99); Non-African American GFR(CKD) >90 (>60 ml/min/1.73 sqM); Sodium 123 mmol/L (137-145)
[2023-05-17 10:39] LABS: Potassium 4.2 mmol/L (3.5-5.1)
[2023-05-17 10:49] LABS: Anisocytosis Slight; Basophils # (A) 0.1 k/uL (0-0.2); Basophils % (A) 1 %; Eosinophils % (A) 0 %; HCT 34.3 % (34.0-46.0); HGB 11.7 gm/dL (11.4-16.0); Lymphocytes # (A) 0.4 k/uL (1.0-4.8); Lymphocytes % (A) 4 %; MCH 31.6 pg (25.0-35.0); MCHC 34.2 g/dL (31.0-37.0); MCV 92.4 fL (80.0-100.0); Mean Platelet Volume 8.8; Monocytes # (A) 0.9 k/uL (0-1.0); Monocytes % (A) 8 %; Neutrophils % (A) 87 %; Platelet Count 407 k/uL (150-450); RBC 3.71 m/uL (3.80-5.40); RDW 16.1 % (11.5-15.5); WBC 11.4 k/uL (3.8-10.6)
--- NOTE | 2023-05-17 10:55 | FL ---
EXAMINATION TYPE: FL guidance operating room, XR lumbar spine 2 or 3V Intraoperative/procedural fluor oscopic services were provided. Total fluoroscopy time is 53 seconds . Please see the operative/proce dural note for further details. 9 images DAP: 1647.23 cGycm2
--- NOTE | 2023-05-17 11:01 | P.PN ---
Subjective Progress Note Date: 05/17/23 Reason for Consult (text): Elevated troponin, preop clearance History of present illness: History of present illness: This is a 68-year-old female patient of Dr. Medina with past medical history of hypertension, moderate MR, mild AR, family history of coronary artery disease. We have been asked to evaluate the patient for elevated troponin and preop c learance. Patient had original back surgery done on 03/31/2023 on the lumbar/S1 area. She apparently went to retirement and about 1 month ago she was diagnosed with pulmonary embolism. Patient was brought into the hospital at that time for chest discomfort and palpitation and seen by cardiology. No arrhythmias were found on telemetry/EKGs. Patient was subsequently diagnosed with PE after CTA of the chest. Patient apparently signed out AMA from the retirement and it seems she has not been taking Xarelto. It is unknown how long she has not been taking her medication. She presented to the hospital on May 12 after a fall or possibly multiple falls with low back pain and weakness. She has been admitted to the hospital and seen by orthopedics with plan for T9 ORIF and revision of the lumbar surgery. Patient currently denies having any chest pain or shortness of breath. She states that she is usually active but according to staff, patient has had multiple falls. She has never had any cardiac stent done and no history of diabetes. Patient is noted to have poor memory recall and obviously has been noncompliant with medication regime. EKG sinus rhythm with Q waves in the inferior leads CTA of the chest revealed no acute pulmonary embolism. Minimal pleural effusions with some adjacent compressive atelectasis. CTA of the chest that was performed on 04/15/2023 was positive for pulmonary emboli on the right. Troponin 0.140. proBNP 2870. Sodium 132, potassium 3.9, creatinine 0.26. WBC 13.7, hemoglobin 9.5. Urinalysis positive for UTI Home cardiac medications: Coreg 3.125 mg twice daily, Lasix 20 mg daily as needed, also on levothyroxine 88 mcg daily. Noted that Xarelto was not listed on her home medication list. Echocardiogram performed on 04/16/2023 reveals mildly increased left ventricular wall thickness, left ventricular ejection fraction 50 to 55%, RVSP 23, mild regurgitation, mild tricuspid regurgitation. 05/15 Troponins were 0.14, 0.133 and 0.125. Echocardiogram reveals limited for left ventricular function with normal LV systolic function. Estimated at 50 to 55%. Blood pressure 139/81, heart rate 91. Patient continues to be quite confused and surgery is scheduled for today. 05/16 Patient is s/p spinal surgery that was performed on 05/15. She was seen yesterday in the intensive care unit and Coreg was increased due to hypertension and tachycardia. Patient is seen today in follow-up on the [facility] floor. Today, blood pressure is 124/81, heart rate 106. Potassium noted to be 3.2, sodium 123, chloride 97, creatinine 0.34. Hemoglobin 11.7, WBC 11.4, platelet count 407. Patient remains very confused. Physical examination: Gen: This is a 68-year-old female, resting in bed appears to be in no acute distress. VS: reviewed HEENT: Head is atraumatic, normocephalic. Pupils equal, round. Sclerae is anicteric. LUNGS: Clear to auscultation. No wheezes or rhonchi. No intercostal retractions. HEART: Regular rate and rhythm. No murmur. EXTREMITIES: No pedal edema. No calf tenderness. NEUROLOGICAL: Patient is confused. Assessment: Elevated troponin, flat, acute coronary syndrome ruled out UTI Confusion Recent pulmonary embolism T9 burst fracture Proximal junction failure [id number] fusion Recent lumbar surgery Hypertension Plan: Continue patient's home cardiac medications Recommend patient be on anticoagulation once cleared by orthopedic surgery for recent pulmonary embolism diagnosed in March 2023 No further cardiac workup is pursued at this time. Cardiology will sign off this case and follow on an as-needed basis. Please reconsult for any new concerns. Nurse practitioner note has been reviewed, I agree with documented findings and plan of care. Patient was seen and examined. Objective - Vital Signs Vital signs: Vital Signs Temp 98.1 F 05/17/23 07:30 Pulse 106 H 05/17/23 07:41 Resp 20 05/17/23 07:41 BP 124/81 05/17/23 07:30 Pulse Ox 95 05/17/23 07:30 FiO2 Intake & Output 05/16/23 05/17/23 05/17/23 18:59 06:59 18:59 Intake Total 725 Output Total 2040 330 Balance -1315 -330 Intake: IV 225 Sodium Chloride 0.9% 1, 225 000 ml @ 20 mls/hr IV . Q24H [facility] Rx#:[id number] Oral 500 Output: Drainage 130 Back 130 Urine 2040 200 Other: Voiding Method Indwelling Catheter Indwelling Catheter Indwelling Catheter ABP, PAP, CO, CI - Last Documented Arterial Blood Pressure 133/105 - Labs CBC & Chem 7: 05/17/23 09:50 05/17/23 09:50 Labs: Abnormal Lab Results - Last 24 Hours (Table) 05/15/23 05/16/23 Range/Units 13:20 11:54 POC Glucose (mg/dL) 118 H (70-110) mg/dL Crossmatch See Detail Microbiology - Last 24 Hours (Table) 05/12/23 10:14 Blood Culture Gram Stain - Final Blood Blood Culture - Final Staphylococcus epidermidis 05/12/23 10:25 Blood Culture Gram Stain - Final Blood Blood Culture - Final Staphylococcus epidermidis 05/14/23 18:01 Blood Culture - Preliminary Blood 05/14/23 04:50 Blood Culture - Preliminary Blood 05/14/23 20:21 Urine Culture - Final Urine,Voided
--- NOTE | 2023-05-17 14:11 | P.PN ---
Subjective Progress Note Date: 05/17/23 I am seeing this patient in consultation today May 14, 2023 mostly for preoperative pulmonary clearance as the patient has a pulmonary embolism and is scheduled to go to the OR tomorrow with Dr. Flores for a open reduction internal fixation with revision of T7-T10 stabilization of a unstable T9 fr acture. Patient is a 68-year-old white female with past medical history significant for recent hospitalization for elective T10 to pelvis revision decompression and fusion on March 31, 2023. Unfortunately, her postoperative recovery was complicated by a right-sided pulmonary embolism. Patient was briefly readmitted and initiated on anticoagulation inpatient. She was then sent to [facility] for rehab. Reportedly, the patient left [place] and has since stopped her Xarelto independently. She has had multiple falls at home. She has had lower extremity weakness. She came to the emergency room yesterday afternoon complaining of severe back pain. Currently the patient is lethargic. She could be tired, as I am interviewing her at night. She also recently received pain medications. She is minimally participating with questions. She is an overall poor historian. She states that she is living with her son. She left [facility] because she did not like the care there. States that she has not been taking her Xarelto. Admits to falling at home and while here. CT of the lumbar and thoracic spine on arrival showed a new T9 vertebral body compression fracture with near complete height loss centrally. There was mild retropulsion up to 5 mm with mild to moderate spinal canal stenosis. There is also postsurgical changes without evidence of hardware fracture or malalignment. Brain CT on arrival without contrast did not show any acute intracranial hemorrhage or mass effect. CT of the C-spine did not show any acute fractures. There were some chronic degenerative changes. Lower extremities appear weak bilaterally. Denies any saddle anesthesia. Denies any bowel or bladder incont inence. Most recent CBC from 2 days ago has a white blood cell count of 13.7, hemoglobin 11.5, hematocrit 36.5, platelets 389. BMP on arrival has a sodium 132, testing 3.9, chloride 101, serum bicarb 21, BUN 8, creatinine 0.26, glucose 142. Urinalysis concerning for UTI. Positive for leukocytes and pyuria. She was started on Kefzol. Blood cultures positive for Staph epidermidis, likely contaminant. Repeat blood cultures are pending. As far as the patient's pulmonary status, she is currently on room air. She is very comfortable. She denies any chest pain or hemoptysis. She appears hemodynamically stable at this time. The patient is seen today May 15, 2023 in follow-up on the regular medical floor. She is currently resting comfortably in bed. Awake and alert in no acute distress. Maintaining good O2 saturations in the 90s on room air. She is afebrile. Hemodynamically stable. C-collar remains in place. CT angiogram ruled out pulmonary embolism. There was minimal pleural effusions with some adjacent compressive atelectasis. Echocardiogram revealed preserved left ventricular systolic function with an ejection fraction of 50 to 55%. Sodium 129. Potassium 3.5. Bicarb 20. BUN 12. Creatinine 0.26. She remains on cefazolin. Normal saline at 75 MLS per hour. Blood cultures are showing coagulase negative staph. Patient was reevaluated today on 05/16/2023, she is now status post open treatment of T9 fracture with reduction, T6-T10 instrumented posterolateral fusion, T8-T10 bilateral decompressive laminectomy and partial medial facetectomy and foraminotomy, vertebral augmentation T9 with spine marvin system for reduction and stabilization and screw augmentation with bone cement. Patient was transferred to the ICU yesterday for observation, patient is doing well relatively asymptomatic she is on room air, hemodynamically stable, denies any cough wheezing or shortness of breath, as a matter fact patient is asking to be discharged home. WBC count is 11.2 hemoglobin 11.4 basic metabolic profile is normal except for low potassium of 3.2 renal profile is normal. Obviously the patient considering her recent pulmonary embolism needs to be anticoagulated at least placed on DVT prophylaxis, will let neurosurgery decide when to clear for anticoagulation therapy. Recent CT angiogram of the chest showed no evidence of pulmonary embolism. The patient is seen today May 17, 2023 in follow-up in the regular medical floor. She is resting comfortably in bed. Awake and alert in no acute distress. Still with some ongoing confusion. dragline operator is at the bedside. She is status post 1 unit of packed red blood cells this admission. Current he moglobin 11.7. Follow-up blood cultures revealing no growth. Urine culture revealed no growth. White count 11.4. Sodium 123. Potassium 4.3. Bicarb 16. BUN 13. Creatinine 0.34. Glucose 96. She remains on cefazolin. Lovenox for DVT prophylaxis. Objective - Vital Signs Vital signs: Vital Signs Temp 98.6 F 05/17/23 13:49 Pulse 103 H 05/17/23 13:49 Resp 19 05/17/23 13:49 BP 124/82 05/17/23 13:49 Pulse Ox 95 05/17/23 13:49 FiO2 Intake & Output 05/16/23 05/17/23 05/17/23 18:59 06:59 18:59 Intake Total 725 Output Total 2040 330 50 Balance -1315 -330 -50 Intake: IV 225 Sodium Chloride 0.9% 1, 225 000 ml @ 20 mls/hr IV . Q24H [facility] Rx#:[id number] Oral 500 Output: Drainage 130 50 Back 130 50 Urine 2040 200 Other: Voiding Method Indwelling Catheter Indwelling Catheter Indwelling Catheter ABP, PAP, CO, CI - Last Documented Arterial Blood Pressure 133/105 - Exam GENERAL EXAM: Awake, alert, confused at times, 68-year-old female, on room air, wearing a c-collar and fairly comfortable. HEAD: Normocephalic and atraumatic EYES: Normal reaction of pupils, equal size. NOSE: Clear with pink turbinates. THROAT: No erythema or exudates. NECK: No masses, no JVD. C-collar in place. CHEST: No chest wall deformity. LUNGS: Equal air entry with no crackles, wheeze, rhonchi or dullness. No conversational dyspnea.. CVS: S1 and S2 normal with no audible murmur, regular rhythm. No extra heart sounds ABDOMEN: No hepatosplenomegaly, active bowel sounds, no guarding or rigidity. SPINE: Surgical dressing intact. Hemovac in place. SKIN: No rashes CENTRAL NERVOUS SYSTEM: There is bilateral lower extremity weakness, grade 4/4. Upper extremity strength graded 5/5. No focal deficits. EXTREMITIES: There is no peripheral edema, clubbing, or cyanosis. Peripheral pulses are intact. - Labs CBC & Chem 7: 05/17/23 09:50 05/17/23 09:50 Labs: Abnormal Lab Results - Last 24 Hours (Table) 01/26/24 01/28/24 01/28/24 Range/Units 13:20 09:50 09:50 WBC 11.4 H (3.8-10.6) k/uL RBC 3.71 L (3.80-5.40) m/uL RDW 16.1 H (11.5-15.5) % Neutrophils # 10.0 H (1.3-7.7) k/uL Lymphocytes # 0.4 L (1.0-4.8) k/uL Sodium 123 L (137-145) mmol/L Chloride 97 L (98-107) mmol/L Carbon Dioxide 16 L (22-30) mmol/L Creatinine 0.34 L (0.52-1.04) mg/dL Crossmatch See Detail Microbiology - Last 24 Hours (Table) 05/14/23 04:50 Blood Culture - Preliminary Blood 05/12/23 10:14 Blood Culture Gram Stain - Final Blood Blood Culture - Final Staphylococcus epidermidis 05/12/23 10:25 Blood Culture Gram Stain - Final Blood Blood Culture - Final Staphylococcus epidermidis 05/14/23 18:01 Blood Culture - Preliminary Blood 05/14/23 20:21 Urine Culture - Final Urine,Voided Assessment and Plan Assessment: Recurrent falls and new T9 fracture, tentatively scheduled to undergo open reduction and internal fixation with revision of T7-T10 stabilization of the patient's T9 fracture. CT of the lumbar and thoracic spine on arrival showed new T9 vertebral body compression fracture with near complete height loss centrally. There was mild retropulsion of up to 5 mm with mild to moderate spinal Canal stenosis. Status post surgical repair with open treatment T9 fracture and reduction, T6-T10 instrumented posterior lateral fusion, T6-10 stabilization, T8-T10 bilateral decompression laminectomy, partial medial facetectomy and foraminotomy, vertebral augmentation T9 with spine marvin system for reduction and stabilization, screw augmentation with bone cement. Postoperative day #2. History of revision of T10 to pelvis decompression and fusion on March 31, 2023 Recent development of provoked right-sided pulmonary embolism, was started on anticoagulation inpatient and transitioned to Xarelto on discharge. She was discharged to [facility], where she left AGAINST MEDICAL ADVICE, and has since stopped her Xarelto on her own. Chest CT angio at time of diagnosis, on April 15, 2023, was positive for pulmonary emboli on the right, beginning at the bifurcation extending into the right middle and lower lobes. CT angiogram from 05/14/2023 revealed no evidence of pulmonary embolism. Suspected urinary tract infection Positive blood culture for staph epidermidis, possible contaminant History of hypothyroidism History of hypertension History of anxiety/depression History of bipolar Former tobacco smoker Plan: The patient was seen and evaluated Labs and medications reviewed Currently stable and on room air C-collar remains in place Remains on Lovenox Activity per orthopedics dragline operator at the bedside We will continue to follow I have personally seen and examined the patient, performed the documentation and the assessment and plan as written. Number of minutes spent on the visit: 10.
--- NOTE | 2023-05-17 14:50 | P.PN ---
Subjective Progress Note Date: 05/17/23 Principal diagnosis: Multiple falls Bilateral lower extremity weakness patient seen and examined this morning. Patient has been transferred to the medical surgical floor. Patient is currently resting in bed with her eyes closed. Nursing staff reports that patient remains confused. It is documented that patient's family members are wanting to speak with case management regarding guardianship over patient. Patient does becomes mildly anxious and restless with pain, pain is controlled on current regimen. Surgical dressing to the thoracic spine, dressing is clean dry and intact with Hemovac present. No acute concerns. Objective - Vital Signs Vital signs: Vital Signs Temp 98.1 F 05/17/23 07:30 Pulse 106 H 05/17/23 07:41 Resp 20 05/17/23 07:41 BP 124/81 05/17/23 07:30 Pulse Ox 95 05/17/23 07:30 FiO2 Intake & Output 05/16/23 05/17/23 05/17/23 18:59 06:59 18:59 Intake Total 725 Output Total 2040 330 Balance -1315 -330 Intake: IV 225 Sodium Chloride 0.9% 1, 225 000 ml @ 20 mls/hr IV . Q24H [facility] Rx#:[id number] Oral 500 Output: Drainage 130 Back 130 Urine 2040 200 Other: Voiding Method Indwelling Catheter Indwelling Catheter Indwelling Catheter ABP, PAP, CO, CI - Last Documented Arterial Blood Pressure 133/105 - Exam Physical Examination General: The patient is awake and alert, in no acute distress Skin: Skin is warm and dry with no obvious rashes or lesions. Thoracic spine incision, dressing is CDI with hemovac present. Eye: Pupils are equal, round and reactive to light, extra-ocular movements are intact; there is normal conjunctiva bilaterally. Neck: The neck is supple, there is no tenderness and ROM intact. Cardiovascular: There is a regular rate and rhythm. No murmur, rub or gallop is appreciated. Respiratory: Lungs are clear to auscultation, respirations are non-labored, breath sounds are equal. Gastrointestinal: Soft, non-distended, non-tender abdomen. Back: There is no tenderness to palpation in the midline, paralumbar, parathoracic or buttocks region. There is no obvious deformity . Musculoskeletal: ROM limited secondary to pain and stiffness from surgical procedure. Muscle strength in all major muscle groups of bilateral upper extremities 4/5, bilateral lower extremities 4/5. Neurological: CN 2-12 intact. There are no obvious motor or sensory deficits. Movement and coordination equal and intact. Sensory exam to light touch intact C5-T1 and intact from L2-S1. Reflexes 2/4 in bilateral upper and lower extremities. Negative Hoffmans, babinski, and clonus signs. Psychiatric: Cooperative, appropriate mood & affect, moderately confused. - Labs CBC & Chem 7: 05/17/23 09:50 05/17/23 09:50 Labs: Abnormal Lab Results - Last 24 Hours (Table) 05/15/23 05/16/23 Range/Units 13:20 11:54 POC Glucose (mg/dL) 118 H (70-110) mg/dL Crossmatch See Detail Microbiology - Last 24 Hours (Table) 05/12/23 10:14 Blood Culture Gram Stain - Final Blood Blood Culture - Final Staphylococcus epidermidis 05/12/23 10:25 Blood Culture Gram Stain - Final Blood Blood Culture - Final Staphylococcus epidermidis 05/14/23 18:01 Blood Culture - Preliminary Blood 05/14/23 04:50 Blood Culture - Preliminary Blood 05/14/23 20:21 Urine Culture - Final Urine,Voided Assessment and Plan Assessment: Post-Op day 2: T9 ORIF with revision T6-T10 stabilization Multiple falls Bilateral lower extremity weakness s/p revision [id number] decompression fusion surgery on 03/31/2023 Plan: -Appreciate organization development consultant and team management. -Activity: Ambulate QID, OOB all meals, up and about, limit lifting bending twisting to less than 5 lbs. Use walker or cane if needed for stability. -Daily PT/OT, increase ambulation strength and balance. -Brace when up and about, not needed in bed or chair -Family needs to bring in TLSO brace, this is not needed for patient to work with PT -Pain control: Adequate at this time -Meds: reviewed -GI ppx: senna, Miralax -DC weiss when up and about, bedside commode if needed -DVT PPX: Lovenox, May restart Xarelto 05/18/2023. -Hygiene: Shower today. Maintain dressing clean and dry. -Drains: Maintain for now. Continue to monitor and record output q shift. -Encourage IS 10x/hr -Dispo: Anticipate discharge to [facility] Within the next 72 hours, pending guardianship. *I reviewed and discussed this case with my attending Dr. Flores, whom has reviewed this chart and films and is in agreement with assessment and plan of care as outlined above. I have personally seen and examined the patient, performed the documentation and the assessment and plan as written. Number of minutes spent on the visit: 20m.
[2023-05-17] MEDS: traZODone HCL 50 MG TAB PO SCH (19:42)
[2023-05-17] MEDS: ONDANSETRON 4 MG/2 ML VIAL IVP PRN (19:42)
[2023-05-17] MEDS: QUEtiapine 100 MG TAB PO SCH (19:42)
[2023-05-17] MEDS ORDERED: LACTULOSE 20 GM/30 ML CUP PO ONE (20:29)
[2023-05-18] MEDS: SODIUM CHLORIDE 0.9% 1,000 ML IV SCH (05:23)
[2023-05-18] MEDS: CYCLOBENZAPRINE 10 MG TAB PO PRN ×2 (06:01→21:14)
[2023-05-18] MEDS: oxyCODONE-APAP 10-325MG 1 EACH TAB PO PRN ×3 (06:01→21:14)
[2023-05-18] MEDS: carvediloL 12.5 MG TAB PO SCH (06:01)
[2023-05-18] MEDS: LEVOTHYROXINE 88 MCG TAB PO SCH (06:01)
--- NOTE | 2023-05-18 07:25 | P.PN ---
Subjective Progress Note Date: 05/18/23 Principal diagnosis: Multiple falls Bilateral lower extremity weakness Patient seen and examined this morning. Patient is currently resting in bed, she remains pleasantly confused, bed alarm is activated. Surgical incision to the thoracic spine, edges are well approximated with juancarlos intact, no active drainage. Hemovac drain has been removed. New dressing has been applied. Patient needs to be repositioned with pillows or up to chair to keep pressure off incision. No acute concerns. Patient to work with PT/OT today. No acute concerns. Objective - Vital Signs Vital signs: Vital Signs Temp 97.7 F 05/18/23 02:26 Pulse 105 H 05/18/23 02:26 Resp 18 05/18/23 02:26 BP 138/85 05/18/23 02:26 Pulse Ox 95 05/18/23 02:26 FiO2 Intake & Output 05/17/23 05/18/23 05/18/23 18:59 06:59 18:59 Output Total 50 440 Balance -50 -440 Output: Drainage 50 90 Back 50 90 Urine 350 Other: Voiding Method Indwelling Catheter Indwelling Catheter # Voids 4 ABP, PAP, CO, CI - Last Documented Arterial Blood Pressure 133/105 - Exam Physical Examination General: The patient is awake and alert, in no acute distress Skin: Skin is warm and dry with no obvious rashes or lesions. Thoracic spine incision, edges are well approximated with juancarlos intact, hemovac drain removed. New dressing applied. Eye: Pupils are equal, round and reactive to light, extra-ocular movements are i ntact; there is normal conjunctiva bilaterally. Neck: The neck is supple, there is no tenderness and ROM intact. Cardiovascular: There is a regular rate and rhythm. No murmur, rub or gallop is appreciated. Respiratory: Lungs are clear to auscultation, respirations are non-labored, breath sounds are equal. Gastrointestinal: Soft, non-distended, non-tender abdomen. Back: There is no tenderness to palpation in the midline, paralumbar, parathoracic or buttocks region. There is no obvious deformity . Musculoskeletal: ROM limited secondary to pain and stiffness from surgical procedure. Muscle strength in all major muscle groups of bilateral upper extremities 4/5, bilateral lower extremities 4/5. Neurological: CN 2-12 intact. There are no obvious motor or sensory deficits. Movement and coordination equal and intact. Sensory exam to light touch intact C5-T1 and intact from L2-S1. Reflexes 2/4 in bilateral upper and lower extremities. Negative Hoffmans, babinski, and clonus signs. Psychiatric: Cooperative, appropriate mood & affect, moderately confused. - Labs CBC & Chem 7: 05/17/23 09:50 05/17/23 09:50 Labs: Abnormal Lab Results - Last 24 Hours (Table) 05/17/23 05/17/23 Range/Units 09:50 09:50 WBC 11.4 H (3.8-10.6) k/uL RBC 3.71 L (3.80-5.40) m/uL RDW 16.1 H (11.5-15.5) % Neutrophils # 10.0 H (1.3-7.7) k/uL Lymphocytes # 0.4 L (1.0-4.8) k/uL Sodium 123 L (137-145) mmol/L Chloride 97 L (98-107) mmol/L Carbon Dioxide 16 L (22-30) mmol/L Creatinine 0.34 L (0.52-1.04) mg/dL Microbiology - Last 24 Hours (Table) 05/14/23 18:01 Blood Culture - Preliminary Blood 05/14/23 04:50 Blood Culture - Preliminary Blood 05/12/23 10:14 Blood Culture Gram Stain - Final Blood Blood Culture - Final Staphylococcus epidermidis 05/12/23 10:25 Blood Culture Gram Stain - Final Blood Blood Culture - Final Staphylococcus epidermidis Assessment and Plan Assessment: Post-Op day 3: T9 ORIF with revision T6-T10 stabilization Multiple falls Bilateral lower extremity weakness s/p revision [id number] decompression fusion surgery on 03/31/2023 Plan: -Appreciate applications consultant and team management. -Activity: Ambulate QID, OOB all meals, up and about, limit lifting bending twisting to less than 5 lbs. Use walker or cane if needed for stability. -Daily PT/OT, increase ambulation strength and balance. -Brace when up and about, not needed in bed or chair -Family needs to bring in TLSO brace, this is not needed for patient to work with PT -Pain control: Adequate at this time -Meds: reviewed -GI ppx: senna, Miralax -DC weiss when up and about, bedside commode if needed -DVT PPX: Xarelto -Hygiene: Shower today. Maintain dressing clean and dry. -Encourage IS 10x/hr -Dispo: Anticipate discharge to [facility] Within the next 72 hours, pending guardianship. *I reviewed and discussed this case with my attending Dr. Flores, whom has reviewed this chart and films and is in agreement with assessment and plan of care as outlined above. I have personally seen and examined the patient, performed the documentation and the assessment and plan as written. Number of minutes spent on the visit: 20m.
[2023-05-18 08:11] LABS: Basophils % (A) 0 %; Eosinophils # (A) 0.1 k/uL (0-0.7); Eosinophils % (A) 0 %; HCT 35.9 % (34.0-46.0); HGB 11.7 gm/dL (11.4-16.0); Lymphocytes # (A) 0.5 k/uL (1.0-4.8); Lymphocytes % (A) 4 %; MCH 30.6 pg (25.0-35.0); MCHC 32.6 g/dL (31.0-37.0); MCV 93.8 fL (80.0-100.0); Mean Platelet Volume 7.1; Monocytes # (A) 0.6 k/uL (0-1.0); Monocytes % (A) 6 %; Neutrophils # (A) 9.9 k/uL (1.3-7.7); Neutrophils % (A) 89 %; Platelet Count 458 k/uL (150-450); RBC 3.82 m/uL (3.80-5.40); WBC 11.1 k/uL (3.8-10.6)
[2023-05-18 08:43] LABS: African American GFR (CKD) >90 (>60 ml/min/1.73 sqM); Anion Gap 6 mmol/L; Blood Urea Nitrogen 13 mg/dL (7-17); Calcium 9.1 mg/dL (8.4-10.2); Carbon Dioxide 25 mmol/L (22-30); Chloride 94 mmol/L (98-107); Glucose 106 mg/dL (74-99); Non-African American GFR(CKD) >90 (>60 ml/min/1.73 sqM); Potassium 3.2 mmol/L (3.5-5.1); Sodium 125 mmol/L (137-145)
[2023-05-18] MEDS: lamoTRIgine 100 MG TAB PO SCH ×2 (08:48→21:14)
[2023-05-18] MEDS: SENNOSIDES 8.6 MG TAB PO SCH (08:48)
[2023-05-18] MEDS: SERTRALINE 100 MG TAB PO SCH (08:48)
[2023-05-18] MEDS ORDERED: Potassium Replacement Protocol 1 EACH MISC MISCELLANE PRN (13:23)
[2023-05-18] MEDS ORDERED: LACTATED RINGERS 500 ML IV ONE (14:00)
[2023-05-18] MEDS: POTASSIUM CHLORIDE ER 20 MEQ TAB.ER PO SCH ×2 (14:10→15:27)
[2023-05-18] MEDS: carvediloL 3.125 MG TAB PO SCH (17:29)
[2023-05-18] MEDS: RIVAROXABAN 20 MG TAB PO SCH (17:29)
[2023-05-18] MEDS ORDERED: carvediloL 6.25 MG TAB PO SCH (17:30)
--- NOTE | 2023-05-18 19:33 | P.PN ---
Progress Note - Text Progress Note Date: 05/18/23 Chief Complaint: Falls This is a pleasant 68-year-old patient, follows with Dr. Malik Beyer. Patient on 03/31/2023 underwent lower back surgery by Dr.) Flores. Rather extensive surgery. Following that patient was discharged to [facility] for rehab. Patient then readmitted from April 13 through April 17. Was found to have pulmonary embolism. Was this time discharged to [facility]. Patient has been home for few days. Been having falls. Some low back pain. This morning patient was on the toilet and she fell down hitting the head. Did not pass out. Cervical collar was placed. CT scans of brain unremarkable. She been having some weakness of the lower extremity. Apparently at home the dog ran into her and she had fallen on her left side. She is also having trouble getting out of bed. Has been using a walker. No change in bowel or urine pattern. No fever or chills. Orthopedics/Dr. Flores was consulted I spoke to patient's son Jeronimo over the phone. Patient stopped taking her Xarelto since she left [facility]. She has signed herself out AMA within 24 hours. Left AMA. Patient be resumed Xarelto for now. May 14: Patient was seen by pulmonary. Patient has positive troponin. No chest pain. Cardiology was consulted. Patient's blood culture drawn on the growing gram-positive cocci in clusters. Patient has a normal white count. Afebrile. On IV Ancef. Chest CTA: Negative for PE. Pending surgery his Xarelto was not resumed. Seen by cardiology. Discussed at length with the patient. Since he has left the rehab AMA. She never resumed her Xarelto. Patient surgery has been postponed for now. Repeat blood cultures have been ordered today. Total time spent today about an hour with over 40 minutes of discussion. May 15: Saw the patient this morning. Very anxious to get the surgery done. Her blood cultures are coming showing coagulase-negative staph. Could be a contaminant. Patient has been on IV Ancef. Very little back pain if any. Patient will talk to Dr. Flores later this morning. May 16: Postoperatively patient went to the ICU. This morning feeling well. Sitting up in a chair. Pain controlled. Occasionally confused. Son at the bedside. Blood pressure was up. Medication adjusted. IV Ancef. Repeat blood culture showing no growth after 48 hours. May 17: Resting in bed. Comfortable. Pain controlled. Blood cultures confirmed Staph epidermidis. Repeat cultures have been negative. Keep on IV Ancef for now. May 18: In bed. Comfortable. Tolerating diet. This afternoon blood pressure did drop. About 70 systolic. IV bolus fluid was ordered. Note 2 days ago Coreg was increased by cardiology. I have scaled back to the home dose of 3.125 mg. She was up to 12.5 mg twice daily. Subsequently blood pressure came up 113 x 73. Patient sodium is also dropped to 125. Put on strict fluid restriction. Avoid free water. Discussed with the nurse and the patient. Changed from a heart healthy diet to regular diet. Active Medications Acetaminophen (Acetaminophen Tab 325 Mg Tab) 650 mg PO Q6HR PRN PRN Reason: Mild Pain or Fever > 100.5 Last Admin: 05/16/23 06:46 Dose: 650 mg Carvedilol (Carvedilol 3.125 Mg Tab) 3.125 mg PO BID-W/MEALS [facility] Last Admin: 05/18/23 17:29 Dose: Not Given Cyclobenzaprine HCl (Cyclobenzaprine 10 Mg Tab) 10 mg PO TID PRN PRN Reason: Muscle Spasm Last Admin: 05/18/23 06:01 Dose: 10 mg Ergocalciferol (Ergocalciferol 1,250 Mcg (50,000 Iu) Capsule) 1,250 mcg PO Q14D [facility] Hydromorphone HCl (Hydromorphone 0.5 Mg/0.5 Ml Syringe) 0.5 mg IVP Q3HR PRN PRN Reason: Pain Last Admin: 05/16/23 13:41 Dose: 0.5 mg Hydromorphone HCl (Hydromorphone 1 Mg/Ml 1 Ml Syringe) 1 mg IVP Q3HR PRN PRN Reason: Pain Last Admin: 05/16/23 08:19 Dose: 1 mg Hydroxyzine Pamoate (Hydroxyzine Pamoate 25 Mg Cap) 50 mg PO BID PRN PRN Reason: Anxiety Last Admin: 05/17/23 07:40 Dose: 50 mg Sodium Chloride (Saline 0.9%) 1,000 mls @ 20 mls/hr IV .Q24H [facility] Last Admin: 05/18/23 05:23 Dose: Not Given Cefazolin Sodium 2 gm/ Sodium (Chloride) 50 mls @ 100 mls/hr IVPB Q8H [facility]; Protocol Last Admin: 05/18/23 17:29 Dose: 100 mls/hr Lamotrigine (Lamotrigine 100 Mg Tab) 200 mg PO BID [facility] Last Admin: 05/18/23 08:48 Dose: 200 mg Levothyroxine Sodium (Levothyroxine 88 Mcg Tab) 88 mcg PO 0630 [facility] Last Admin: 05/18/23 06:01 Dose: 88 mcg Miscellaneous Information (Potassium Replacement Protocol 1 Each Misc) 1 each MISCELLANE DAILY PRN; Protocol PRN Reason: Per Protocol Miscellaneous Information (Potassium Replacement Protocol 1 Each Misc) 1 each MISCELLANE DAILY PRN; Protocol PRN Reason: Per Protocol Naloxone HCl (Naloxone 0.4 Mg/Ml 1 Ml Vial) 0.2 mg IV Q2M PRN PRN Reason: Opioid Reversal Patient's Own ( Linaclotide [Linzess ] 145 Mcg Capsule) 145 mcg PO DAILY PRN PRN Reason: Constipation Ondansetron HCl (Ondansetron 4 Mg/2 Ml Vial) 4 mg IVP Q8HR PRN PRN Reason: Nausea And Vomiting Last Admin: 05/17/23 19:42 Dose: 4 mg Oxycodone/Acetaminophen (Oxycodone-Apap 10-325mg 1 Each Tab) 1 each PO Q4HR PRN PRN Reason: Pain Last Admin: 05/18/23 09:49 Dose: 1 each Quetiapine Fumarate (Quetiapine 100 Mg Tab) 300 mg PO [facility] Last Admin: 05/17/23 19:42 Dose: 300 mg Rivaroxaban (Rivaroxaban 20 Mg Tab) 20 mg PO W/SUPPER [facility]; Protocol Last Admin: 05/18/23 17:29 Dose: 20 mg Senna (Sennosides 8.6 Mg Tab) 8.6 mg PO DAILY [facility] Last Admin: 05/18/23 08:48 Dose: 8.6 mg Sertraline HCl (Sertraline 100 Mg Tab) 100 mg PO DAILY [facility] Last Admin: 05/18/23 08:48 Dose: 100 mg Trazodone HCl (Trazodone Hcl 50 Mg Tab) 150 mg PO [facility] Last Admin: 05/17/23 19:42 Dose: 150 mg Past medical history to include: Iron deficiency anemia, gastric bypass, bipolar disorder, osteoarthritis, constipation possibly from narcotics Social history: Recently in rehab. Prior history of prescription drug abuse. [place]. Has been clean since 2014. Son lives at home with her Physical examination: VITAL SIGNS: 97.5, 101, 113 x 73, 97% room air GENERAL: Resting in bed comfortable EYES: Pupils equal. Conjunctiva normal. HEENT: External appearance of nose and ears normal, oral cavity grossly normal. NECK: Cervical collar HEART: First and second heart sounds are normal; no edema. LUNGS: Respiratory rate normal; clear to auscultation. ABDOMEN: Soft, nontender, liver spleen not palpable, no masses palpable. PSYCH: Answers questions. Sometimes repeats questions. MUSCULOSKELETAL:No Clubbing/cyanosis;muscles-grossly intact. OA. NEUROLOGICAL: Cranial nerves grossly intact. 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 Able to move both the lower extremity. INVESTIGATIONS, reviewed in the clinical context: May 18: White count 11.1 hemoglobin 11.7 potassium 3.2 sodium 125 May 16: White count 11.2 hemoglobin 11.4 potassium 3.2 creatinine 0.24 May 15: Sodium 129 potassium 3.5 creatinine 0.36 May 14: White count 10.1 hemoglobin 10.7 sodium 129 potassium 3.5 creatinine 0.24. Troponin I: 0.140, 0.133, 0.125. proBNP 2870 Blood culture [May 12] Staphylococcus epidermidis. May 14: Pending CT brain: Negative for fracture May 12, 2023: White count 3.7 hemoglobin 11.5 platelets are 87 sodium 132 potassium 3.9 BUN 8 creatinine 0.26 UA: Leukoesterase positive WBC 182 bacteria moderate Chest x-ray film personally reviewed by me-unremarkable CT scan thoracolumbar spine: T9 vertebral body compression fracture with near complete height loss centrally new from March 31. Postsurgical changes. Previous labs: Hemoglobin 9.1 on April 06 and 13 on April 01 Assessment and plan: -This is a patient with lumbar surgery in March with Dr. Flores. Did better after surgery. Did go to rehab. Patient had a fall at home. 2 more falls after that. Some increased low back pain and weakness in the lower extremity. Being followed by Dr. Flores -Essential hypertension, now hypotensive Coreg cut back to 3.125 twice daily - -Blood cultures growing coagulase-negative Staphylococcus. Could be contaminant. Repeat blood culture from May 14 pending. Continue IV Ancef -Acute T9 vertebral body compression fracture which is reported to be new from March 31. Patient had a fall 2 weeks ago when her dog and ran into her at home. Open treatment of T9 fracture with reduction. T6-T10 instrumented post lateral fusion. With stabilization. Decompressive laminectomy. Etc. with Dr. Flores May 16, 2023 -Acute pulmonary embolism. March 2023 l Apparently patient not been taking his Xarelto for at least last 2-1/[address] scan this admission negative for PE-pulmonary following Pulmonary following - gait dysfunction following surgery. Patient did get rehab Does use a walker -Bipolar disorder Trazodone. Lamictal. Seroquel. -Hypothyroid Synthroid 88 g a day -Worsening hyponatremia Change from heart healthy to regular diet. Increase salt intake. Fluid restriction 1500 cc a day. Avoid free water. -Acute UTI with cystitis. IV Ancef Check BMP, serum osmolality in the morning. Coreg cut back to 3.125 twice daily. Past Medical History Past Medical History: No Reported History Additional Past Medical History / Comment(s): IRON DEFICIENCY ANEMIA. History of Any Multi-Drug Resistant Organisms: None Reported Past Surgical History: Back Surgery, Bariatric Surgery, Orthopedic Surgery Additional Past Surgical History / Comment(s): right shoulder, left shoulder, gastric bypass Past Anesthesia/Blood Transfusion Reactions: No Reported Reaction Past Psychological History: Anxiety, Bipolar, Depression Smoking Status: Never smoker Past Alcohol Use History: Abuse Additional Past Alcohol Use History / Comment(s): Pt. drank 3 times a week heavily for 10 yrs. and quit 2 yrs. ago. Past Drug Use History: Prescription Drug Abuse
[2023-05-18 21:01] LABS: HCT 38.1 % (34.0-46.0); HGB 12.7 gm/dL (11.4-16.0); MCH 30.8 pg (25.0-35.0); MCHC 33.3 g/dL (31.0-37.0); MCV 92.6 fL (80.0-100.0); Mean Platelet Volume 7.8; Platelet Count 410 k/uL (150-450); RBC 4.12 m/uL (3.80-5.40); RDW 15.9 % (11.5-15.5); WBC 13.2 k/uL (3.8-10.6)
[2023-05-18] MEDS: traZODone HCL 50 MG TAB PO SCH (21:14)
[2023-05-18] MEDS: QUEtiapine 100 MG TAB PO SCH (21:14)
[2023-05-18] MEDS ORDERED: bisacodyL 10 MG SUPP RECTAL STA (21:22)
[2023-05-19] MEDS: CYCLOBENZAPRINE 10 MG TAB PO PRN (04:48)
[2023-05-19] MEDS: oxyCODONE-APAP 10-325MG 1 EACH TAB PO PRN (04:48)
[2023-05-19] MEDS: SODIUM CHLORIDE 0.9% 1,000 ML IV SCH ×3 (05:49→20:18)
[2023-05-19] MEDS: LEVOTHYROXINE 88 MCG TAB PO SCH (06:39)
[2023-05-19] MEDS: carvediloL 3.125 MG TAB PO SCH ×2 (06:39→15:39)
--- NOTE | 2023-05-19 07:21 | P.PN ---
Subjective Progress Note Date: 05/19/23 Principal diagnosis: Multiple falls Bilateral lower extremity weakness Patient seen and examined this morning. Patient is currently resting in bed, she remains pleasantly confused, bed alarm is activated. Surgical incision to the thoracic spine, dressing is CDI. Continue to reposition with pillows or up to chair to keep pressure off incision. No acute concerns. Patient to work with PT/OT today. No acute concerns. Patient is cleared from Orthopedic standpoint for discharge to [facility] when medically stable. Objective - Vital Signs Vital signs: Vital Signs Temp 98.2 F 05/19/23 01:56 Pulse 76 05/19/23 06:38 Resp 16 05/19/23 01:56 BP 171/96 05/19/23 06:38 Pulse Ox 93 L 05/19/23 01:56 FiO2 Intake & Output 05/18/23 05/18/23 05/19/23 06:59 18:59 06:59 Output Total 440 600 Balance -440 -600 Output: Drainage 90 Back 90 Urine 350 600 Other: Voiding Method Indwelling Catheter Indwelling Catheter Indwelling Catheter ABP, PAP, CO, CI - Last Documented Arterial Blood Pressure 133/105 - Exam Physical Examination General: The patient is awake and alert, in no acute distress Skin: Skin is warm and dry with no obvious rashes or lesions. Thoracic spine incision, dressing is CDI. Eye: Pupils are equal, round and reactive to light, extra-ocular movements are intact; there is normal conjunctiva bilaterally. Neck: The neck is supple, there is no tenderness and ROM intact. Cardiovascular: There is a regular rate and rhythm. No murmur, rub or gallop is appreciated. Respiratory: Lungs are clear to auscultation, respirations are non-labored, breath sounds are equal. Gastrointestinal: Soft, non-distended, non-tender abdomen. Back: There is no tenderness to palpation in the midline, paralumbar, parathoracic or buttocks region. There is no obvious deformity . Musculoskeletal: ROM limited secondary to pain and stiffness from surgical procedure. Muscle strength in all major muscle groups of bilateral upper extremities 4/5, bilateral lower extremities 4/5. Neurological: CN 2-12 intact. There are no obvious motor or sensory deficits. Movement and coordination equal and intact. Sensory exam to light touch intact C5-T1 and intact from L2-S1. Reflexes 2/4 in bilateral upper and lower extremities. Negative Hoffmans, babinski, and clonus signs. Psychiatric: Cooperative, appropriate mood & affect, moderately confused. - Labs CBC & Chem 7: 05/18/23 20:26 05/18/23 07:57 Labs: Abnormal Lab Results - Last 24 Hours (Table) 05/18/23 05/18/23 05/18/23 Range/Units 07:57 07:57 20:26 WBC 11.1 H 13.2 H (3.8-10.6) k/uL RDW 16.0 H 15.9 H (11.5-15.5) % Plt Count 458 H (150-450) k/uL Neutrophils # 9.9 H (1.3-7.7) k/uL Lymphocytes # 0.5 L (1.0-4.8) k/uL Sodium 125 L (137-145) mmol/L Potassium 3.2 L (3.5-5.1) mmol/L Chloride 94 L (98-107) mmol/L Creatinine 0.40 L (0.52-1.04) mg/dL Glucose 106 H (74-99) mg/dL Microbiology - Last 24 Hours (Table) 05/14/23 18:01 Blood Culture - Preliminary Blood Assessment and Plan Assessment: Post-Op day 4: T9 ORIF with revision T6-T10 stabilization Multiple falls Bilateral lower extremity weakness s/p revision [id number] decompression fusion surgery on 03/31/2023 Plan: -Appreciate employee relations consultant and team management. -Activity: Ambulate QID, OOB all meals, up and about, limit lifting bending twisting to less than 5 lbs. Use walker or cane if needed for stability. -Daily PT/OT, increase ambulation strength and balance. -Brace when up and about, not needed in bed or chair -Family needs to bring in TLSO brace, this is not needed for patient to work with PT -Pain control: Adequate at this time -Meds: reviewed -GI ppx: senna, Miralax -DC weiss when up and about, bedside commode if needed -DVT PPX: Xarelto -Hygiene: Shower today. Maintain dressing clean and dry. -Encourage IS 10x/hr -Dispo: Patient is cleared from Orthopedic standpoint for discharge to [facility] when medically stable. *I reviewed and discussed this case with my attending Dr. Flores, whom has reviewed this chart and films and is in agreement with assessment and plan of care as outlined above. I have personally seen and examined the patient, performed the documentation and the assessment and plan as written. Number of minutes spent on the visit: 20m.
[2023-05-19 07:29] LABS: African American GFR (CKD) >90 (>60 ml/min/1.73 sqM); Anion Gap 6 mmol/L; Blood Urea Nitrogen 14 mg/dL (7-17); Calcium 9.1 mg/dL (8.4-10.2); Carbon Dioxide 23 mmol/L (22-30); Chloride 96 mmol/L (98-107); Glucose 84 mg/dL (74-99); Non-African American GFR(CKD) >90 (>60 ml/min/1.73 sqM); Potassium 3.6 mmol/L (3.5-5.1); Sodium 125 mmol/L (137-145)
[2023-05-19] MEDS: SERTRALINE 100 MG TAB PO SCH (08:34)
[2023-05-19] MEDS: lamoTRIgine 100 MG TAB PO SCH ×2 (08:34→20:18)
[2023-05-19] MEDS: SENNOSIDES 8.6 MG TAB PO SCH (08:34)
[2023-05-19] MEDS ORDERED: ERGOCALCIFEROL 1,250 MCG (50,000 IU) CAPSULE PO SCH (09:00)
[2023-05-19 11:43] VITALS: BMI 27.6
[2023-05-19] MEDS ORDERED: carvediloL 6.25 MG TAB PO SCH ×2 (17:30→21:00)
[2023-05-19] MEDS: RIVAROXABAN 20 MG TAB PO SCH (17:55)
[2023-05-19] MEDS: QUEtiapine 100 MG TAB PO SCH (20:18)
[2023-05-19] MEDS: traZODone HCL 50 MG TAB PO SCH (20:18)
--- NOTE | 2023-05-19 20:38 | P.PN ---
Progress Note - Text Progress Note Date: 05/19/23 Chief Complaint: Falls This is a pleasant 68-year-old patient, follows with Dr. Malik Beyer. Patient on 03/31/2023 underwent lower back surgery by Dr.) Flores. Rather extensive surgery. Following that patient was discharged to [facility] for rehab. Patient then readmitted from April 13 through April 17. Was found to have pulmonary embolism. Was this time discharged to [facility]. Patient has been home for few days. Been having falls. Some low back pain. This morning patient was on the toilet and she fell down hitting the head. Did not pass out. Cervical collar was placed. CT scans of brain unremarkable. She been having some weakness of the lower extremity. Apparently at home the dog ran into her and she had fallen on her left side. She is also having trouble getting out of bed. Has been using a walker. No change in bowel or urine pattern. No fever or chills. Orthopedics/Dr. Flores was consulted I spoke to patient's son Jeronimo over the phone. Patient stopped taking her Xarelto since she left [facility]. She has signed herself out AMA within 24 hours. Left AMA. Patient be resumed Xarelto for now. May 14: Patient was seen by pulmonary. Patient has positive troponin. No chest pain. Cardiology was consulted. Patient's blood culture drawn on the growing gram-positive cocci in clusters. Patient has a normal white count. Afebrile. On IV Ancef. Chest CTA: Negative for PE. Pending surgery his Xarelto was not resumed. Seen by cardiology. Discussed at length with the patient. Since he has left the rehab AMA. She never resumed her Xarelto. Patient surgery has been postponed for now. Repeat blood cultures have been ordered today. Total time spent today about an hour with over 40 minutes of discussion. May 15: Saw the patient this morning. Very anxious to get the surgery done. Her blood cultures are coming showing coagulase-negative staph. Could be a contaminant. Patient has been on IV Ancef. Very little back pain if any. Patient will talk to Dr. Flores later this morning. May 16: Postoperatively patient went to the ICU. This morning feeling well. Sitting up in a chair. Pain controlled. Occasionally confused. Son at the bedside. Blood pressure was up. Medication adjusted. IV Ancef. Repeat blood culture showing no growth after 48 hours. May 17: Resting in bed. Comfortable. Pain controlled. Blood cultures confirmed Staph epidermidis. Repeat cultures have been negative. Keep on IV Ancef for now. May 18: In bed. Comfortable. Tolerating diet. This afternoon blood pressure did drop. About 70 systolic. IV bolus fluid was ordered. Note 2 days ago Coreg was increased by cardiology. I have scaled back to the home dose of 3.125 mg. She was up to 12.5 mg twice daily. Subsequently blood pressure came up 113 x 73. Patient sodium is also dropped to 125. Put on strict fluid restriction. Avoid free water. Discussed with the nurse and the patient. Changed from a heart healthy diet to regular diet. May 19: Eating some. Blood pressure is gone up today. Will increase Coreg to 6.25 mg twice daily. Sodium is still running low. Free water restriction again reemphasized. Patient has been increasingly confused. Does take a few psychiatry medications. Will consult Dr. Winn. Patient has been put back on Xarelto as per pulmonary. Patient not ready for discharge. Sodium tablets added for low serum osmolality. Repeat blood cultures negative. Will DC Ancef. Active Medications Acetaminophen (Acetaminophen Tab 325 Mg Tab) 650 mg PO Q6HR PRN PRN Reason: Mild Pain or Fever > 100.5 Last Admin: 05/16/23 06:46 Dose: 650 mg Carvedilol (Carvedilol 6.25 Mg Tab) 6.25 mg PO BID-W/MEALS REPLACED BY [facility] Cyclobenzaprine HCl (Cyclobenzaprine 10 Mg Tab) 10 mg PO TID PRN PRN Reason: Muscle Spasm Last Admin: 05/19/23 04:48 Dose: 10 mg Ergocalciferol (Ergocalciferol 1,250 Mcg (50,000 Iu) Capsule) 1,250 mcg PO Q14D BRYN Last Admin: 05/19/23 08:34 Dose: 1,250 mcg Hydromorphone HCl (Hydromorphone 0.5 Mg/0.5 Ml Syringe) 0.5 mg IVP Q3HR PRN PRN Reason: Pain Last Admin: 05/16/23 13:41 Dose: 0.5 mg Hydromorphone HCl (Hydromorphone 1 Mg/Ml 1 Ml Syringe) 1 mg IVP Q3HR PRN PRN Reason: Pain Last Admin: 05/16/23 08:19 Dose: 1 mg Hydroxyzine Pamoate (Hydroxyzine Pamoate 25 Mg Cap) 50 mg PO BID PRN PRN Reason: Anxiety Last Admin: 05/17/23 07:40 Dose: 50 mg Cefazolin Sodium 2 gm/ Sodium (Chloride) 50 mls @ 100 mls/hr IVPB Q8H REPLACED BY [facility]; Protocol Last Admin: 05/19/23 17:32 Dose: 100 mls/hr Sodium Chloride (Saline 0.9%) 1,000 mls @ 75 mls/hr IV .[id number] REPLACED BY [facility] Last Admin: 05/19/23 20:18 Dose: 75 mls/hr Lamotrigine (Lamotrigine 100 Mg Tab) 200 mg PO BID REPLACED BY [facility] Last Admin: 05/19/23 20:18 Dose: 200 mg Levothyroxine Sodium (Levothyroxine 88 Mcg Tab) 88 mcg PO 0630 REPLACED BY [facility] Last Admin: 05/19/23 06:39 Dose: 88 mcg Miscellaneous Information (Potassium Replacement Protocol 1 Each Misc) 1 each MISCELLANE DAILY PRN; Protocol PRN Reason: Per Protocol Miscellaneous Information (Potassium Replacement Protocol 1 Each Misc) 1 each MISCELLANE DAILY PRN; Protocol PRN Reason: Per Protocol Naloxone HCl (Naloxone 0.4 Mg/Ml 1 Ml Vial) 0.2 mg IV Q2M PRN PRN Reason: Opioid Reversal Patient's Own ( Linaclotide [Linzess ] 145 Mcg Capsule) 145 mcg PO DAILY PRN PRN Reason: Constipation Ondansetron HCl (Ondansetron 4 Mg/2 Ml Vial) 4 mg IVP Q8HR PRN PRN Reason: Nausea And Vomiting Last Admin: 05/17/23 19:42 Dose: 4 mg Oxycodone/Acetaminophen (Oxycodone-Apap 10-325mg 1 Each Tab) 1 each PO Q4HR PRN PRN Reason: Pain Last Admin: 05/19/23 04:48 Dose: 1 each Quetiapine Fumarate (Quetiapine 100 Mg Tab) 300 mg PO HS REPLACED BY [facility] Last Admin: 05/19/23 20:18 Dose: 300 mg Rivaroxaban (Rivaroxaban 20 Mg Tab) 20 mg PO W/SUPPER REPLACED BY [facility]; Protocol Last Admin: 05/19/23 17:55 Dose: 20 mg Senna (Sennosides 8.6 Mg Tab) 8.6 mg PO DAILY REPLACED BY [facility] Last Admin: 05/19/23 08:34 Dose: 8.6 mg Sertraline HCl (Sertraline 100 Mg Tab) 100 mg PO DAILY REPLACED BY [facility] Last Admin: 05/19/23 08:34 Dose: 100 mg Trazodone HCl (Trazodone Hcl 50 Mg Tab) 150 mg PO HS REPLACED BY [facility] Last Admin: 05/19/23 20:18 Dose: 150 mg Past medical history to include: Iron deficiency anemia, gastric bypass, bipolar disorder, osteoarthritis, constipation possibly from narcotics Social history: Recently in rehab. Prior history of prescription drug abuse. [place]. Has been clean since 2014. Son lives at home with her Physical examination: VITAL SIGNS: 98.2, 91, 15, 177 x 123, 95% room air GENERAL: Resting in bed, somewhat delirious EYES: Pupils equal. Conjunctiva normal. HEENT: External appearance of nose and ears normal, oral cavity grossly normal. NECK: JVD not raised HEART: First and second heart sounds are normal; no edema. LUNGS: Respiratory rate normal; clear to auscultation. ABDOMEN: Soft, nontender, liver spleen not palpable, no masses palpable. PSYCH: Awake confused. Question delirious. MUSCULOSKELETAL:No Clubbing/cyanosis;muscles-grossly intact. OA. NEUROLOGICAL: Cranial nerves grossly intact. 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 Able to move both the lower extremity. INVESTIGATIONS, reviewed in the clinical context: May 19: Sodium 125 potassium 3.6 creatinine 0.39 serum osmolality 261 May 18: White count 11.1 hemoglobin 11.7 potassium 3.2 sodium 125 May 16: White count 11.2 hemoglobin 11.4 potassium 3.2 creatinine 0.24 May 15: Sodium 129 potassium 3.5 creatinine 0.36 May 14: White count 10.1 hemoglobin 10.7 sodium 129 potassium 3.5 creatinine 0.24. Troponin I: 0.140, 0.133, 0.125. proBNP 2870 Blood culture [May 12] Staphylococcus epidermidis. May 14: Negative CT brain: Negative for fracture May 12, 2023: White count 3.7 hemoglobin 11.5 platelets are 87 sodium 132 potassium 3.9 BUN 8 creatinine 0.26 UA: Leukoesterase positive WBC 182 bacteria moderate Chest x-ray film personally reviewed by me-unremarkable CT scan thoracolumbar spine: T9 vertebral body compression fracture with near complete height loss centrally new from March 31. Postsurgical changes. Previous labs: Hemoglobin 9.1 on April 06 and 13 on April 01 Assessment and plan: -This is a patient with lumbar surgery in March with Dr. Flores. Did better after surgery. Did go to rehab. Patient had a fall at home. 2 more falls after that. Some increased low back pain and weakness in the lower extremity. Being followed by Dr. Flores -Essential hypertension, uncontrolled Coreg increased to 6.25 mg twice daily - -Blood cultures growing coagulase-negative Staphylococcus. Could be contaminant. Repeat blood culture from May 14 negative. Stop IV Ancef -Acute T9 vertebral body compression fracture which is reported to be new from March 31. Patient had a fall 2 weeks ago when her dog and ran into her at home. Open treatment of T9 fracture with reduction. T6-T10 instrumented post lateral fusion. With stabilization. Decompressive laminectomy. Etc. with Dr. Flores May 16, 2023 -Acute pulmonary embolism. March 2023 l Apparently patient not been taking his Xarelto for at least last 2-1/[address] scan this admission negative for PE-pulmonary following Pulmonary resume patient on Xarelto - gait dysfunction following surgery. Patient did get rehab Does use a walker -Bipolar disorder: Increasing confusion Trazodone. Lamictal. Seroquel. Consult psychiatry -Hypothyroid Synthroid 88 g a day -Worsening hypoosmolar hyponatremia: Uncontrolled regular diet. Add sodium chloride. Fluid restriction 1500 cc a day. Avoid free water. -Acute UTI with cystitis. IV Ancef-completed course Stop IV Ancef. Add sodium chloride. Reinforce free water limitation. Consult psychiatry. Increase Coreg. Past Medical History Past Medical History: No Reported History Additional Past Medical History / Comment(s): IRON DEFICIENCY ANEMIA. History of Any Multi-Drug Resistant Organisms: None Reported Past Surgical History: Back Surgery, Bariatric Surgery, Orthopedic Surgery Additional Past Surgical History / Comment(s): right shoulder, left shoulder, gastric bypass Past Anesthesia/Blood Transfusion Reactions: No Reported Reaction Past Psychological History: Anxiety, Bipolar, Depression Smoking Status: Never smoker Past Alcohol Use History: Abuse Additional Past Alcohol Use History / Comment(s): Pt. drank 3 times a week h eavily for 10 yrs. and quit 2 yrs. ago. Past Drug Use History: Prescription Drug Abuse
[2023-05-19] MEDS: carvediloL 6.25 MG TAB PO SCH (20:45)
[2023-05-19] MEDS: SODIUM CHLORIDE TAB 1 GM TAB PO SCH (22:09)
[2023-05-20] MEDS: LEVOTHYROXINE 88 MCG TAB PO SCH (06:43)
[2023-05-20] MEDS: SERTRALINE 100 MG TAB PO SCH (09:53)
[2023-05-20] MEDS: lamoTRIgine 100 MG TAB PO SCH ×2 (09:53→20:16)
[2023-05-20] MEDS: SENNOSIDES 8.6 MG TAB PO SCH (09:53)
[2023-05-20] MEDS: carvediloL 6.25 MG TAB PO SCH ×2 (09:53→17:10)
[2023-05-20] MEDS: SODIUM CHLORIDE TAB 1 GM TAB PO SCH ×3 (09:53→20:16)
--- NOTE | 2023-05-20 10:03 | P.PN ---
Subjective Progress Note Date: 05/20/23 Principal diagnosis: Multiple falls Bilateral lower extremity weakness Patient seen and examined this morning. Patient is currently resting in bed, she remains pleasantly confused, bed alarm is activated. Surgical incision to the thoracic spine, dressing is CDI. Continue to reposition with pillows or up to chair to keep pressure off incision. No acute concerns. No acute concerns. Patient is cleared from Orthopedic standpoint for discharge to [facility] when medically stable. Objective - Vital Signs Vital signs: Vital Signs Temp 98.1 F 05/20/23 07:04 Pulse 104 H 05/20/23 07:04 Resp 19 05/20/23 07:04 BP 137/96 05/20/23 07:04 Pulse Ox 95 05/20/23 07:04 FiO2 Intake & Output 05/19/23 05/20/23 05/20/23 18:59 06:59 18:59 Intake Total 200 Output Total 400 1300 Balance -200 -1300 Weight 82.6 kg Intake: Oral 200 Output: Urine 400 1300 Other: Voiding Method Indwelling Catheter Indwelling Catheter ABP, PAP, CO, CI - Last Documented Arterial Blood Pressure 133/105 - Exam Physical Examination General: The patient is awake and alert, in no acute distress Skin: Skin is warm and dry with no obvious rashes or lesions. Thoracic spine incision, dressing is CDI. Eye: Pupils are equal, round and reactive to light, extra-ocular movements are intact; there is normal conjunctiva bilaterally. Neck: The neck is supple, there is no tenderness and ROM intact. Cardiovascular: There is a regular rate and rhythm. No murmur, rub or gallop is appreciated. Respiratory: Lungs are clear to auscultation, respirations are non-labored, breath sounds are equal. Gastrointestinal: Soft, non-distended, non-tender abdomen. Back: There is no tenderness to palpation in the midline, paralumbar, parathoracic or buttocks region. There is no obvious deformity . Musculoskeletal: ROM limited secondary to pain and stiffness from surgical procedure. Muscle strength in all major muscle groups of bilateral upper extremities 4/5, bilateral lower extremities 4/5. Neurological: CN 2-12 intact. There are no obvious motor or sensory deficits. Movement and coordination equal and intact. Sensory exam to light touch intact C5-T1 and intact from L2-S1. Reflexes 2/4 in bilateral upper and lower extremities. Negative Hoffmans, babinski, and clonus signs. Psychiatric: Cooperative, appropriate mood & affect, moderately confused. - Labs CBC & Chem 7: 05/18/23 20:26 05/19/23 06:48 Labs: Abnormal Lab Results - Last 24 Hours (Table) 05/19/23 Range/Units 06:48 Osmolality 261 L (275-295) mOsm/kg Microbiology - Last 24 Hours (Table) 05/14/23 18:01 Blood Culture - Final Blood 05/14/23 04:50 Blood Culture - Final Blood Assessment and Plan Assessment: Post-Op day 5: T9 ORIF with revision T6-T10 stabilization Multiple falls Bilateral lower extremity weakness s/p revision [id number] decompression fusion surgery on 03/31/2023 Plan: -Appreciate residential property consultant and team management. -Activity: Ambulate QID, OOB all meals, up and about, limit lifting bending twisting to less than 5 lbs. Use walker or cane if needed for stability. -Daily PT/OT, increase ambulation strength and balance. -Brace when up and about, not needed in bed or chair -Family needs to bring in TLSO brace, this is not needed for patient to work with PT -Pain control: Adequate at this time -Meds: reviewed -GI ppx: senna, Miralax -DC weiss -DVT PPX: Xarelto -Hygiene: Shower today. Maintain dressing clean and dry. -Encourage IS 10x/hr -Dispo: Patient is cleared from Orthopedic standpoint for discharge to [facility] when medically stable. Our service will be signing off at this time. Please reach out to our service if there are any questions or concerns. *I reviewed and discussed this case with my attending Dr. Flores, whom has reviewed this chart and films and is in agreement with assessment and plan of care as outlined above. I have personally seen and examined the patient, performed the documentation and the assessment and plan as written. Number of minutes spent on the visit: 20m.
[2023-05-20 12:45] LABS: African American GFR (CKD) >90 (>60 ml/min/1.73 sqM); Anion Gap 6 mmol/L; Blood Urea Nitrogen 9 mg/dL (7-17); Calcium 8.5 mg/dL (8.4-10.2); Carbon Dioxide 21 mmol/L (22-30); Chloride 97 mmol/L (98-107); Glucose 102 mg/dL (74-99); Non-African American GFR(CKD) >90 (>60 ml/min/1.73 sqM); Potassium 3.6 mmol/L (3.5-5.1); Sodium 124 mmol/L (137-145)
[2023-05-20] MEDS: SODIUM CHLORIDE 0.9% 1,000 ML IV SCH (14:56)
[2023-05-20] MEDS ORDERED: traZODone HCL 50 MG TAB PO PRN (15:05)
[2023-05-20] MEDS ORDERED: OLANZapine 5 MG TAB PO PRN (15:07)
[2023-05-20] MEDS ORDERED: haloperidoL 5 MG TAB PO PRN (15:07)
--- NOTE | 2023-05-20 15:15 | P.CN ---
Psychiatric Consult - . Consult date: 05/20/23 Consult:: 05/20/23 14:15 IDENTIFYING DATA: This patient is a 68-year-old female, currently lives with her son in a house, she has 4 kids, she is . REASON FOR REFERRAL: Psychiatry was consulted for "questionable psychosis" HISTORY OF PRESENT ILLNESS: The patient presented to the hospital initially on 05/12 after having a fall at home, recent back pain and weakness. Patient apparently had a recent recent orthopedic surgery in March 2023. Patient has been treating with pain medications and according to notes has been "pleasantly confused". Patient sodium has been 124. Patient was seen today by commercial real estate underwriter at the bedside. Patient knew her correct age, knew the month and year. She believes that she was in [place].she was fairly confused during conversation, had poor attention span. She often would incorrectly answer questions and frequently talk about her kids. She also focused on having "bipolar 1". States that she was having falling episodes at home. She appears to have fairly poor insight and judgment. Was not able to talk about her treatment and decision making. States that her sleep and appetite are fair at this time. At this time patient denies any suicidal or homical ideations, intent or plan. Patient denies any auditory, visual hallucinations and denies any paranoia or delusions. Patients admits to using no recreational drugs or cigarettes. Patient was only able to give limited social history. PAST PSYCHIATRIC HISTORY: Patient has a a history of bipolar disorder type I. Patient is currently on Lamictal, Seroquel, trazodone, Zoloft. Claims that she may have been admitted in the past to a psychiatric unit however still does not know where or when. Patient denies any psychiatric outpatient follow-up. Patient denies any history of suicide attempts in the past. Past Medical History: No Reported History Additional Past Medical History / Comment(s): IRON DEFICIENCY ANEMIA. History of Any Multi-Drug Resistant Organisms: None Reported Past Surgical History: Back Surgery, Bariatric Surgery, Orthopedic Surgery Additional Past Surgical History / Comment(s): right shoulder, left shoulder, gastric bypass Past Anesthesia/Blood Transfusion Reactions: No Reported Reaction Past Psychological History: Anxiety, Bipolar, Depression Smoking Status: Never smoker Past Alcohol Use History: Abuse Past Drug Use History: Prescription Drug Abuse ALLERGIES: as per EMR. CHEMICAL DEPENDENCY HISTORY: as per HPI. FAMILY PSYCHIATRIC/SUBSTANCE USE HISTORY: Denies SOCIAL HISTORY: Unable to give social history due to mental status. Does have 4 kids, she is , she lives with her son in a house. MENTAL STATUS EXAM: General Appearance: Patient appears to be thin, short hair, stated age is alert, pleasant, confused. Patient appears to have fair hygiene and grooming wearing hospital gown with poor eye contact. Behavior: Patient is calmly lying in bed without any agitated behavior. Pleasantly confused. Speech: Patient's speech is fluent and nonpressured. Repetitive Mood/Affect: Patient reports their mood is "ok", affect is congruent Suicidality/Homicidality: Patient denies having any suicidal or homicidal ideation intent or plan. Perceptions: Patient denies any visual hallucinations and denies any auditory hallucinations Though content/process: Preoccupied with her kids and also medications. Inappropriate at times. Illogical answers. Memory and concentration: AOX2, does not know her current location. Fairly confused overall. Cannot spell "WORLD" backwards Judgment and insight: Poor/Limited IMPRESSIONS: Delirium likely secondary to multiple etiologies including electrolyte abnormality (Na), opiates/medications History of bipolar disorder PLAN: -At this time patient DOES NOT meet criteria for inpatient psychiatric admission. -Patient DOES NOT have decision making capacity at this time and is unable to reason through and communicate/appreciate the risks, benefits and alternatives to treatment. -Delirium precautions recommended with patient including - avoiding use of narcotics and GAS METER CHECKER sedatives, limit anticholinergic medications when possible, frequent re-orientation, minimize use of restraints, open window shades during the day and close them at night -Would recommend the following medication changes/additions: Please attempt to cut back on opiates, please avoid steroids and benzodiazepines is much as possible as these medications will increase likelihood of patient's confusion and delirium. Increase Seroquel to 400 mg nightly for psychosis/mood stabilization, changed trazodone to 50 mg nightly as needed for insomnia. Added Zyprexa 3 times daily as needed for severe agitation. -workers compensation administrator to provide patient with outpatient mental health/psychiatry resources for appropriate follow up upon discharge -Communicated plan to patient's nurse -Psychiatry will sign off at this time unless patients condition deteriorates then please contact psych again for follow up. -Please contact with any questions. 05/20/23 15:08
[2023-05-20] MEDS: RIVAROXABAN 20 MG TAB PO SCH (17:10)
[2023-05-20] MEDS ORDERED: Acetaminophen-Codeine 300-30mg TAB PO PRN (18:43)
--- NOTE | 2023-05-20 18:48 | P.PN ---
Progress Note - Text Progress Note Date: 05/20/23 Chief Complaint: Falls This is a pleasant 68-year-old patient, follows with Dr. Malik Beyer. Patient on 03/31/2023 underwent lower back surgery by Dr.) Flores. Rather extensive surgery. Following that patient was discharged to [facility] for rehab. Patient then readmitted from April 13 through April 17. Was found to have pulmonary embolism. Was this time discharged to [facility]. Patient has been home for few days. Been having falls. Some low back pain. This morning patient was on the toilet and she fell down hitting the head. Did not pass out. Cervical collar was placed. CT scans of brain unremarkable. She been having some weakness of the lower extremity. Apparently at home the dog ran into her and she had fallen on her left side. She is also having trouble getting out of bed. Has been using a walker. No change in bowel or urine pattern. No fever or chills. Orthopedics/Dr. Flores was consulted I spoke to patient's son Jeronimo over the phone. Patient stopped taking her Xarelto since she left [facility]. She has signed herself out AMA within 24 hours. Left AMA. Patient be resumed Xarelto for now. May 14: Patient was seen by pulmonary. Patient has positive troponin. No chest pain. Cardiology was consulted. Patient's blood culture drawn on the growing gram-positive cocci in clusters. Patient has a normal white count. Afebrile. On IV Ancef. Chest CTA: Negative for PE. Pending surgery his Xarelto was not resumed. Seen by cardiology. Discussed at length with the patient. Since he has left the rehab AMA. She never resumed her Xarelto. Patient surgery has been postponed for now. Repeat blood cultures have been ordered today. Total time spent today about an hour with over 40 minutes of discussion. May 15: Saw the patient this morning. Very anxious to get the surgery done. Her blood cultures are coming showing coagulase-negative staph. Could be a contaminant. Patient has been on IV Ancef. Very little back pain if any. Patient will talk to Dr. Flores later this morning. May 16: Postoperatively patient went to the ICU. This morning feeling well. Sitting up in a chair. Pain controlled. Occasionally confused. Son at the bedside. Blood pressure was up. Medication adjusted. IV Ancef. Repeat blood culture showing no growth after 48 hours. May 17: Resting in bed. Comfortable. Pain controlled. Blood cultures confirmed Staph epidermidis. Repeat cultures have been negative. Keep on IV Ancef for now. May 18: In bed. Comfortable. Tolerating diet. This afternoon blood pressure did drop. About 70 systolic. IV bolus fluid was ordered. Note 2 days ago Coreg was increased by cardiology. I have scaled back to the home dose of 3.125 mg. She was up to 12.5 mg twice daily. Subsequently blood pressure came up 113 x 73. Patient sodium is also dropped to 125. Put on strict fluid restriction. Avoid free water. Discussed with the nurse and the patient. Changed from a heart healthy diet to regular diet. May 19: Eating some. Blood pressure is gone up today. Will increase Coreg to 6.25 mg twice daily. Sodium is still running low. Free water restriction again reemphasized. Patient has been increasingly confused. Does take a few psychiatry medications. Will consult Dr. Winn. Patient has been put back on Xarelto as per pulmonary. Patient not ready for discharge. Sodium tablets added for low serum osmolality. Repeat blood cultures negative. Will DC Ancef. May 20: Up in a bed. Somewhat confused. Son at the bedside. On Xarelto. Eating some. Will started on sodium tablets yesterday. Sodium still low this morning. Fluid restriction in place. Patient seen by psychiatry Dr. Winn. Seroquel increased to 400 mg at night. Zyprexa was also added. Will DC Percocet and use Tylenol 3. DC Dilaudid. Consult nephrology for hyponatremia. Blood pressure better controlled. Care was discussed with son at the bedside. Active Medications Acetaminophen (Acetaminophen Tab 325 Mg Tab) 650 mg PO Q6HR PRN PRN Reason: Mild Pain or Fever > 100.5 Last Admin: 05/16/23 06:46 Dose: 650 mg Acetaminophen/Codeine Phosphate (Acetaminophen-Codeine 300-30mg Tab) 1 each PO Q6H PRN PRN Reason: Pain Carvedilol (Carvedilol 6.25 Mg Tab) 6.25 mg PO BID-W/MEALS BRYN Last Admin: 05/20/23 17:10 Dose: 6.25 mg Cyclobenzaprine HCl (Cyclobenzaprine 5 Mg Tab) 5 mg PO TID PRN PRN Reason: Muscle Spasm Ergocalciferol (Ergocalciferol 1,250 Mcg (50,000 Iu) Capsule) 1,250 mcg PO Q14D [facility] Last Admin: 05/19/23 08:34 Dose: 1,250 mcg Haloperidol (Haloperidol 5 Mg Tab) 5 mg PO Q6HR PRN PRN Reason: Agitation Sodium Chloride (Saline 0.9%) 1,000 mls @ 75 mls/hr IV .[id number] [facility] Last Admin: 05/20/23 14:56 Dose: 75 mls/hr Lamotrigine (Lamotrigine 100 Mg Tab) 200 mg PO BID [facility] Last Admin: 05/20/23 09:53 Dose: 200 mg Levothyroxine Sodium (Levothyroxine 88 Mcg Tab) 88 mcg PO 0630 [facility] Last Admin: 05/20/23 06:43 Dose: 88 mcg Miscellaneous Information (Potassium Replacement Protocol 1 Each Misc) 1 each MISCELLANE DAILY PRN; Protocol PRN Reason: Per Protocol Naloxone HCl (Naloxone 0.4 Mg/Ml 1 Ml Vial) 0.2 mg IV Q2M PRN PRN Reason: Opioid Reversal Patient's Own ( Linaclotide [Linzess ] 145 Mcg Capsule) 145 mcg PO DAILY PRN PRN Reason: Constipation Olanzapine (Olanzapine 5 Mg Tab) 5 mg PO TID PRN PRN Reason: Severe Agitation Ondansetron HCl (Ondansetron 4 Mg/2 Ml Vial) 4 mg IVP Q8HR PRN PRN Reason: Nausea And Vomiting Last Admin: 05/17/23 19:42 Dose: 4 mg Quetiapine Fumarate (Quetiapine 400 Mg Tab) 400 mg PO [facility] Rivaroxaban (Rivaroxaban 20 Mg Tab) 20 mg PO W/SUPPER [facility]; Protocol Last Admin: 05/20/23 17:10 Dose: 20 mg Senna (Sennosides 8.6 Mg Tab) 8.6 mg PO DAILY [facility] Last Admin: 05/20/23 09:53 Dose: 8.6 mg Sertraline HCl (Sertraline 100 Mg Tab) 100 mg PO DAILY [facility] Last Admin: 05/20/23 09:53 Dose: 100 mg Sodium Chloride (Sodium Chloride Tab 1 Gm Tab) 1 gm PO TID [facility] Last Admin: 05/20/23 17:11 Dose: 1 gm Trazodone HCl (Trazodone Hcl 50 Mg Tab) 50 mg PO HS PRN PRN Reason: Insomnia Past medical history to include: Iron deficiency anemia, gastric bypass, bipolar disorder, osteoarthritis, constipation possibly from narcotics Social history: Recently in rehab. Prior history of prescription drug abuse. Shell. Has been clean since 2014. Son lives at home with her Physical examination: VITAL SIGNS: 98, 101, 19, 1 one 9 x 86, 92% room air GENERAL: Resting in bed, somewhat delirious EYES: Pupils equal. Conjunctiva normal. HEENT: External appearance of nose and ears normal, oral cavity grossly normal. NECK: JVD not raised HEART: First and second heart sounds are normal; no edema. LUNGS: Respiratory rate normal; clear to auscultation. ABDOMEN: Soft, nontender, liver spleen not palpable, no masses palpable. PSYCH: Awake confused. Question delirious. MUSCULOSKELETAL:No Clubbing/cyanosis;muscles-grossly intact. OA. NEUROLOGICAL: Cranial nerves grossly intact. Good ebd teacher in both the arms. Able to move both the lower extremity. INVESTIGATIONS, reviewed in the clinical context: May 20: Sodium 124 potassium 3.6 creatinine 0.3 May 19: Sodium 125 potassium 3.6 creatinine 0.39 serum osmolality 261 May 18: White count 11.1 hemoglobin 11.7 potassium 3.2 sodium 125 May 16: White count 11.2 hemoglobin 11.4 potassium 3.2 creatinine 0.24 May 15: Sodium 129 potassium 3.5 creatinine 0.36 May 14: White count 10.1 hemoglobin 10.7 sodium 129 potassium 3.5 creatinine 0.24. Troponin I: 0.140, 0.133, 0.125. proBNP 2870 Blood culture [May 12] Staphylococcus epidermidis. May 14: Negative CT brain: Negative for fracture May 12, 2023: White count 3.7 hemoglobin 11.5 platelets are 87 sodium 132 potassium 3.9 BUN 8 creatinine 0.26 UA: Leukoesterase positive WBC 182 bacteria moderate Chest x-ray film personally reviewed by me-unremarkable CT scan thoracolumbar spine: T9 vertebral body compression fracture with near complete height loss centrally new from March 31. Postsurgical changes. Previous labs: Hemoglobin 9.1 on April 06 and 13 on April 01 Assessment and plan: -This is a patient with lumbar surgery in March with Dr. Flores. Did better after surgery. Did go to rehab. Patient had a fall at home. 2 more falls after that. Some increased low back pain and weakness in the lower extremity. Being followed by Dr. Flores -Essential hypertension, Coreg 6.25 mg twice daily -Blood cultures growing coagulase-negative Staphylococcus. Probably contaminant. Repeat blood culture from May 14 negative. Stop IV Ancef -Acute T9 vertebral body compression fracture which is reported to be new from March 31. Patient had a fall 2 weeks ago when her dog and ran into her at home. Open treatment of T9 fracture with reduction. T6-T10 instrumented post lateral fusion. With stabilization. Decompressive laminectomy. Etc. with Dr. Flores May 16, 2023 Pain well-controlled. -Acute pulmonary embolism. March 2023 l Apparently patient not been taking his Xarelto for at least last 2-1/[address] scan this admission negative for PE-pulmonary following Pulmonary resume patient on Xarelto - gait dysfunction following surgery. Patient did get rehab Does use a walker -Bipolar disorder: Increasing confusion Trazodone. Lamictal. Seroquel. Seen by Dr. Winn from psychiatry: Seroquel increased to 400 mg nightly. Zyprexa added. -Hypothyroid Synthroid 88 g a day -Worsening hypoosmolar hyponatremia: Not improving regular diet. . Fluid restriction 1500 cc a day. Avoid free water. Salt tablets Consult nephrology -Acute UTI with cystitis. IV Ancef-completed course Stop Percocet. Stop IV Dilaudid. Tylenol 3 as needed for pain. Consult nephrology. Psychiatry consultation noted. Past Medical History Past Medical History: No Reported History Additional Past Medical History / Comment(s): IRON DEFICIENCY ANEMIA. History of Any Multi-Drug Resistant Organisms: None Reported Past Surgical History: Back Surgery, Bariatric Surgery, Orthopedic Surgery Additional Past Surgical History / Comment(s): right shoulder, left shoulder, gastric bypass Past Anesthesia/Blood Transfusion Reactions: No Reported Reaction Past Psychological History: Anxiety, Bipolar, Depression Smoking Status: Never smoker Past Alcohol Use History: Abuse Additional Past Alcohol Use History / Comment(s): Pt. drank 3 times a week heavily for 10 yrs. and quit 2 yrs. ago. Past Drug Use History: Prescription Drug Abuse
[2023-05-20] MEDS: QUEtiapine 400 MG TAB PO SCH (20:16)
[2023-05-21] MEDS: SODIUM CHLORIDE 0.9% 1,000 ML IV SCH (01:00)
[2023-05-21] MEDS ORDERED: ZINC OXIDE PASTE (Z-GUARD) 1 APPLIC TOPICAL PRN (05:19)
[2023-05-21] MEDS: LEVOTHYROXINE 88 MCG TAB PO SCH (06:25)
[2023-05-21] MEDS: SENNOSIDES 8.6 MG TAB PO SCH (08:19)
[2023-05-21] MEDS: lamoTRIgine 100 MG TAB PO SCH ×2 (08:19→19:52)
[2023-05-21] MEDS: SERTRALINE 100 MG TAB PO SCH (08:19)
[2023-05-21] MEDS: carvediloL 6.25 MG TAB PO SCH ×2 (08:19→17:05)
[2023-05-21] MEDS: SODIUM CHLORIDE TAB 1 GM TAB PO SCH ×4 (08:19→22:52)
[2023-05-21 09:11] LABS: African American GFR (CKD) >90 (>60 ml/min/1.73 sqM); Anion Gap 3 mmol/L; Blood Urea Nitrogen 10 mg/dL (7-17); Calcium 8.4 mg/dL (8.4-10.2); Carbon Dioxide 21 mmol/L (22-30); Chloride 102 mmol/L (98-107); Glucose 90 mg/dL (74-99); Non-African American GFR(CKD) >90 (>60 ml/min/1.73 sqM); Potassium 3.1 mmol/L (3.5-5.1); Sodium 126 mmol/L (137-145)
--- NOTE | 2023-05-21 12:45 | P.NPCON ---
History of Present Illness - Reason for Consult hyponatremia - History of Present Illness Reason for consultation: Hyponatremia History of present illness: Patient is a 68-year-old female seen in renal consultation for hyponatremia. Patient is not a very reliable historian. Patient was admitted to the hospital on May 12, 2023 and at that time her sodium level was 132. Subsequently her sodium level has been in the range of 124-1 29. It is 126 today. Patient came to the hospital due to generalized weakness and fall. Patient underwent back surgery in March 2023 but did not go to rehab upon discharge. Patient underwent T9 fracture surgery, T6-T10 posterior lateral fusion, T6-T10 stabiliz ation, decompressive laminectomy this admission. Oral intake has been poor. Hemodynamically stable. She is on room air. She has a Almendarez catheter and is nonoliguric. Patient is currently receiving normal saline at 75 and is also on sodium chloride tablets. No history of kidney disease. GFR is at baseline. Vital signs are stable. General: No acute distress. HEENT: Head exam is unremarkable. LUNGS: No audible rhonchi or wheezes. HEART: Rate and Rhythm are regular. ABDOMEN: Nontender. EXTREMITITES: No edema. Past Medical History Past Medical History: No Reported History Additional Past Medical History / Comment(s): IRON DEFICIENCY ANEMIA. History of Any Multi-Drug Resistant Organisms: None Reported Past Surgical History: Back Surgery, Bariatric Surgery, Orthopedic Surgery Additional Past Surgical History / Comment(s): right shoulder, left shoulder, gastric bypass Past Anesthesia/Blood Transfusion Reactions: No Reported Reaction Past Psychological History: Anxiety, Bipolar, Depression Smoking Status: Never smoker Past Alcohol Use History: Abuse Additional Past Alcohol Use History / Comment(s): Pt. drank 3 times a week heavily for 10 yrs. and quit 2 yrs. ago. Past Drug Use History: Prescription Drug Abuse - Past Family History Mother Family Medical History: No Reported History Sister(s) Family Medical History: Pulmonary Embolus Medications and Allergies Home Medications Medication Instructions Recorded Confirmed Type traZODone HCL 150 mg PO HS 04/10/16 05/12/23 History lamoTRIgine [LaMICtal] 200 mg PO BID 30 Days #60 tablet 02/08/18 05/12/23 Rx Levothyroxine Sodium [Synthroid] 88 mcg PO DAILY 03/30/23 05/12/23 History QUEtiapine FUMARATE [SEROquel] 300 mg PO HS 04/12/23 05/12/23 History Cyclobenzaprine [Flexeril] 5 mg PO TID PRN 05/12/23 05/12/23 History Ergocalciferol [Vitamin D2 (1250 1,250 mcg PO DIRECTED 05/12/23 05/12/23 History Mcg = 06115 Iu)] Furosemide [Lasix] 20 mg PO DAILY PRN 05/12/23 05/12/23 History Linaclotide [Linzess] 145 mcg PO DAILY PRN 05/12/23 05/12/23 History Sertraline [Zoloft] 100 mg PO DAILY 05/12/23 05/12/23 History carvediloL [Coreg] 3.125 mg PO BID 05/12/23 05/12/23 History hydrOXYzine pamoate [Vistaril] 25 - 50 mg PO BID PRN 05/12/23 05/12/23 History oxyCODONE HCL/ACETAMINOPHEN 1 tab PO Q6HR PRN 05/12/23 05/12/23 History [Percocet 10-325 mg] cefaDROXiL [Duricef] 500 mg PO Q12HR #20 cap 05/18/23 Rx Allergies Allergy/AdvReac Type Severity Reaction Status Date / Time No Known Allergies Allergy Verified 05/12/23 10:19 Physical Exam Vitals: Vital Signs Temp Pulse Pulse Resp BP BP Pulse Ox 05/21/23 06:53 98.4 F 91 17 126/85 95 05/21/23 01:13 98.4 F 69 17 91/66 94 L 05/20/23 19:22 97.9 F 97 15 127/84 92 L 05/20/23 13:15 98.0 F 101 H 19 119/86 92 L Intake and Output 05/20/23 05/21/23 05/21/23 22:59 06:59 14:59 Output Total 500 250 Balance -500 -250 Output: Urine 500 250 Other: Voiding Method Indwelling Catheter Results - Lab Results Most recent lab results ABG pH 7.45 (7.35-7.45) 05/15/23 16:00 ABG pCO2 31 mmHg (35-45) L 05/15/23 16:00 ABG pO2 220 mmHg (83-108) H 05/15/23 16:00 ABG HCO3 22 mmol/L (21-25) 05/15/23 16:00 ABG O2 Saturation >100.0 % (94-97) H 05/15/23 16:00 Calcium 8.4 mg/dL (8.4-10.2) 05/21/23 07:47 Magnesium 1.6 mg/dL (1.6-2.3) 05/12/23 08:34 05/18/23 20:26 05/21/23 07:47 Assessment and Plan Plan: Assessment: 1. Hyponatremia. Euvolemic. Component of SIADH from pain. Also component of poor solute intake. No significant improvement normal saline. TSH normal. Sodium level 126 today. 2. Status post T9 fracture reduction, T6-T10 posterior lateral fusion, stabiliz ation and decompressive laminectomy this admission. 3. Hypokalemia from poor intake. Being replaced. Plan: Hep-Lock IV fluids. Encourage oral intake, particularly protein. Maintain salt tabs. Add 1200 cc fluid restriction. Check serum and urine osmolality and urine sodium level. Thank you for the consultation. I will continue to follow the patient with you during her hospital stay.
[2023-05-21] MEDS: POTASSIUM CHLORIDE ER 20 MEQ TAB.ER PO SCH ×2 (13:29→15:16)
--- NOTE | 2023-05-21 16:34 | P.PN ---
Progress Note - Text Progress Note Date: 05/21/23 Chief Complaint: Falls This is a pleasant 68-year-old patient, follows with Dr. Malik Beyer. Patient on 03/31/2023 underwent lower back surgery by Dr.) Flores. Rather extensive surgery. Following that patient was discharged to [facility] for rehab. Patient then readmitted from April 13 through April 17. Was found to have pulmonary embolism. Was this time discharged to [facility]. Patient has been home for few days. Been having falls. Some low back pain. This morning patient was on the toilet and she fell down hitting the head. Did not pass out. Cervical collar was placed. CT scans of brain unremarkable. She been having some weakness of the lower extremity. Apparently at home the dog ran into her and she had fallen on her left side. She is also having trouble getting out of bed. Has been using a walker. No change in bowel or urine pattern. No fever or chills. Orthopedics/Dr. Flores was consulted I spoke to patient's son Jeronimo over the phone. Patient stopped taking her Xarelto since she left [facility]. She has signed herself out AMA within 24 hours. Left AMA. Patient be resumed Xarelto for now. May 14: Patient was seen by pulmonary. Patient has positive troponin. No chest pain. Cardiology was consulted. Patient's blood culture drawn on the growing gram-positive cocci in clusters. Patient has a normal white count. Afebrile. On IV Ancef. Chest CTA: Negative for PE. Pending surgery his Xarelto was not resumed. Seen by cardiology. Discussed at length with the patient. Since he has left the rehab AMA. She never resumed her Xarelto. Patient surgery has been postponed for now. Repeat blood cultures have been ordered today. Total time spent today about an hour with over 40 minutes of discussion. May 15: Saw the patient this morning. Very anxious to get the surgery done. Her blood cultures are coming showing coagulase-negative staph. Could be a contaminant. Patient has been on IV Ancef. Very little back pain if any. Patient will talk to Dr. Flores later this morning. May 16: Postoperatively patient went to the ICU. This morning feeling well. Sitting up in a chair. Pain controlled. Occasionally confused. Son at the bedside. Blood pressure was up. Medication adjusted. IV Ancef. Repeat blood culture showing no growth after 48 hours. May 17: Resting in bed. Comfortable. Pain controlled. Blood cultures confirmed Staph epidermidis. Repeat cultures have been negative. Keep on IV Ancef for now. May 18: In bed. Comfortable. Tolerating diet. This afternoon blood pressure did drop. About 70 systolic. IV bolus fluid was ordered. Note 2 days ago Coreg was increased by cardiology. I have scaled back to the home dose of 3.125 mg. She was up to 12.5 mg twice daily. Subsequently blood pressure came up 113 x 73. Patient sodium is also dropped to 125. Put on strict fluid restriction. Avoid free water. Discussed with the nurse and the patient. Changed from a heart healthy diet to regular diet. May 19: Eating some. Blood pressure is gone up today. Will increase Coreg to 6.25 mg twice daily. Sodium is still running low. Free water restriction again reemphasized. Patient has been increasingly confused. Does take a few psychiatry medications. Will consult Dr. Winn. Patient has been put back on Xarelto as per pulmonary. Patient not ready for discharge. Sodium tablets added for low serum osmolality. Repeat blood cultures negative. Will DC Ancef. May 20: Up in a bed. Somewhat confused. Son at the bedside. On Xarelto. Eating some. Will started on sodium tablets yesterday. Sodium still low this morning. Fluid restriction in place. Patient seen by psychiatry Dr. Winn. Seroquel increased to 400 mg at night. Zyprexa was also added. Will DC Percocet and use Tylenol 3. DC Dilaudid. Consult nephrology for hyponatremia. Blood pressure better controlled. Care was discussed with son at the bedside. May 21: Patient remains a bit delirious. Discussed with Dr. Winn from psychiatry. Will cut back Zoloft to 50 mg in the morning. Add 50 mg of Seroquel in the morning. Seen by nephrology. Again reinforced avoid tea water and coffee. Spoke to community case manager. Patient not ready for discharge. Active Medications Acetaminophen (Acetaminophen Tab 325 Mg Tab) 650 mg PO Q6HR PRN PRN Reason: Mild Pain or Fever > 100.5 Last Admin: 05/16/23 06:46 Dose: 650 mg Acetaminophen/Codeine Phosphate (Acetaminophen-Codeine 300-30mg Tab) 1 each PO Q6H PRN PRN Reason: Pain Carvedilol (Carvedilol 6.25 Mg Tab) 6.25 mg PO BID-W/MEALS [facility] Last Admin: 05/21/23 08:19 Dose: 6.25 mg Cyclobenzaprine HCl (Cyclobenzaprine 5 Mg Tab) 5 mg PO TID PRN PRN Reason: Muscle Spasm Ergocalciferol (Ergocalciferol 1,250 Mcg (50,000 Iu) Capsule) 1,250 mcg PO Q14D [facility] Last Admin: 05/19/23 08:34 Dose: 1,250 mcg Haloperidol (Haloperidol 5 Mg Tab) 5 mg PO Q6HR PRN PRN Reason: Agitation Lamotrigine (Lamotrigine 100 Mg Tab) 200 mg PO BID [facility] Last Admin: 05/21/23 08:19 Dose: 200 mg Levothyroxine Sodium (Levothyroxine 88 Mcg Tab) 88 mcg PO 0630 [facility] Last Admin: 05/21/23 06:25 Dose: 88 mcg Miscellaneous Information (Potassium Replacement Protocol 1 Each Misc) 1 each MISCELLANE DAILY PRN; Protocol PRN Reason: Per Protocol Naloxone HCl (Naloxone 0.4 Mg/Ml 1 Ml Vial) 0.2 mg IV Q2M PRN PRN Reason: Opioid Reversal Patient's Own ( Linaclotide [Linzess ] 145 Mcg Capsule) 145 mcg PO DAILY PRN PRN Reason: Constipation Olanzapine (Olanzapine 5 Mg Tab) 5 mg PO TID PRN PRN Reason: Severe Agitation Ondansetron HCl (Ondansetron 4 Mg/2 Ml Vial) 4 mg IVP Q8HR PRN PRN Reason: Nausea And Vomiting Last Admin: 05/17/23 19:42 Dose: 4 mg Petrolatum (Zinc Oxide Paste (Z-Guard) 1 Applic) 1 applic TOPICAL BID PRN; Protocol PRN Reason: Wound Healing Last Admin: 05/21/23 05:25 Dose: 1 applic Quetiapine Fumarate (Quetiapine 400 Mg Tab) 400 mg PO HS [facility] Last Admin: 05/20/23 20:16 Dose: 400 mg Quetiapine Fumarate (Quetiapine 50 Mg Tab) 50 mg PO DAILY [facility] Rivaroxaban (Rivaroxaban 20 Mg Tab) 20 mg PO W/SUPPER [facility]; Protocol Last Admin: 05/20/23 17:10 Dose: 20 mg Senna (Sennosides 8.6 Mg Tab) 8.6 mg PO DAILY [facility] Last Admin: 05/21/23 08:19 Dose: 8.6 mg Sertraline HCl (Sertraline 50 Mg Tab) 50 mg PO DAILY [facility] Sodium Chloride (Sodium Chloride Tab 1 Gm Tab) 1 gm PO TID [facility] Last Admin: 05/21/23 15:16 Dose: 1 gm Trazodone HCl (Trazodone Hcl 50 Mg Tab) 50 mg PO HS PRN PRN Reason: Insomnia Past medical history to include: Iron deficiency anemia, gastric bypass, bipolar disorder, osteoarthritis, constipation possibly from narcotics Social history: Recently in rehab. Prior history of prescription drug abuse. [place]. Has been clean since 2014. Son lives at home with her Physical examination: VITAL SIGNS: 98.3, 87, 18, 123/83, 96% room air GENERAL: Resting in bed, remains a bit delirious EYES: Pupils equal. Conjunctiva normal. HEENT: External appearance of nose and ears normal, oral cavity grossly normal. NECK: JVD not raised HEART: First and second heart sounds are normal; no edema. LUNGS: Respiratory rate normal; clear to auscultation. ABDOMEN: Soft, nontender, liver spleen not palpable, no masses palpable. PSYCH: Does repeatedly answer the same questions or asked the same questions. MUSCULOSKELETAL:No Clubbing/cyanosis;muscles-grossly intact. OA. NEUROLOGICAL: Cranial nerves grossly intact. Good market development analyst in both the arms. Able to move both the lower extremity. INVESTIGATIONS, reviewed in the clinical context: May 21: Sodium 126 potassium 3.1 creatinine 0.31 TSH 1.6 May 20: Sodium 124 potassium 3.6 creatinine 0.3 May 19: Sodium 125 potassium 3.6 creatinine 0.39 serum osmolality 261 May 18: White count 11.1 hemoglobin 11.7 potassium 3.2 sodium 125 May 16: White count 11.2 hemoglobin 11.4 potassium 3.2 creatinine 0.24 May 15: Sodium 129 potassium 3.5 creatinine 0.36 May 14: White count 10.1 hemoglobin 10.7 sodium 129 potassium 3.5 creatinine 0.24. Troponin I: 0.140, 0.133, 0.125. proBNP 2870 Blood culture [May 12] Staphylococcus epidermidis. May 14: Negative CT brain: Negative for fracture May 12, 2023: White count 3.7 hemoglobin 11.5 platelets are 87 sodium 132 potassium 3.9 BUN 8 creatinine 0.26 UA: Leukoesterase positive WBC 182 bacteria moderate Chest x-ray film personally reviewed by me-unremarkable CT scan thoracolumbar spine: T9 vertebral body compression fracture with near complete height loss centrally new from March 31. Postsurgical changes. Previous labs: Hemoglobin 9.1 on April 06 and 13 on April 01 Assessment and plan: -This is a patient with lumbar surgery in March with Dr. Flores. Did better after surgery. Did go to rehab. Patient had a fall at home. 2 more falls after that. Some increased low back pain and weakness in the lower extremity. Being followed by Dr. Flores -Essential hypertension, Coreg 6.25 mg twice daily -Blood cultures growing coagulase-negative Staphylococcus. Probably contaminant. Repeat blood culture from May 14 negative. Stop IV Ancef -Acute T9 vertebral body compression fracture which is reported to be new from March 31. Patient had a fall 2 weeks ago when her dog and ran into her at home. Open treatment of T9 fracture with reduction. T6-T10 instrumented post lateral fusion. With stabilization. Decompressive laminectomy. Etc. with Dr. Flores May 16, 2023 Pain well-controlled. -Acute pulmonary embolism. March 2023 l Apparently patient not been taking his Xarelto for at least last 2-1/[address] scan this admission negative for PE-pulmonary following Resumed on Xarelto - gait dysfunction following surgery. Patient did get rehab Does use a walker -Bipolar disorder: Increasing confusion Trazodone. Lamictal. Seroquel. Seen by Dr. Winn from psychiatry: Seroquel increased to 400 mg nightly. Zyprexa added as needed Discussed with Dr. Winn. Add 50 mg of Seroquel in the morning.. Cut back Zoloft to 50 mg starting tomorrow. -Hypothyroid Synthroid 88 g a day -Hypoosmolar hyponatremia: Not improving regular diet. . Increase fluid restriction 1200 cc a day. Avoid free water. Salt tablets Dr. Dutton following -Acute UTI with cystitis. IV Ancef-completed course Decrease Zoloft to 50 mg a day. Add Seroquel 50 mg in the morning. Fluid restriction increased to 200 cc a day. Staff reminded to avoid free fluid including tea coffee and water. Past Medical History Past Medical History: No Reported History Additional Past Medical History / Comment(s): IRON DEFICIENCY ANEMIA. History of Any Multi-Drug Resistant Organisms: None Reported Past Surgical History: Back Surgery, Bariatric Surgery, Orthopedic Surgery Additional Past Surgical History / Comment(s): right shoulder, left shoulder, gastric bypass Past Anesthesia/Blood Transfusion Reactions: No Reported Reaction Past Psychological History: Anxiety, Bipolar, Depression Smoking Status: Never smoker Past Alcohol Use History: Abuse Additional Past Alcohol Use History / Comment(s): Pt. drank 3 times a week heavily for 10 yrs. and quit 2 yrs. ago. Past Drug Use History: Prescription Drug Abuse
[2023-05-21] MEDS: RIVAROXABAN 20 MG TAB PO SCH (17:05)
[2023-05-21] MEDS: QUEtiapine 400 MG TAB PO SCH (19:52)
[2023-05-22] MEDS: LEVOTHYROXINE 88 MCG TAB PO SCH (06:27)
[2023-05-22 07:43] LABS: African American GFR (CKD) >90 (>60 ml/min/1.73 sqM); Anion Gap 4 mmol/L; Blood Urea Nitrogen 8 mg/dL (7-17); Calcium 8.9 mg/dL (8.4-10.2); Carbon Dioxide 22 mmol/L (22-30); Chloride 103 mmol/L (98-107); Glucose 70 mg/dL (74-99); Magnesium 1.7 mg/dL (1.6-2.3); Non-African American GFR(CKD) >90 (>60 ml/min/1.73 sqM); Potassium 3.9 mmol/L (3.5-5.1); Sodium 129 mmol/L (137-145)
[2023-05-22] MEDS: lamoTRIgine 100 MG TAB PO SCH ×2 (08:18→20:47)
[2023-05-22] MEDS: carvediloL 6.25 MG TAB PO SCH ×2 (08:18→18:01)
[2023-05-22] MEDS: SENNOSIDES 8.6 MG TAB PO SCH (08:18)
[2023-05-22] MEDS: CYCLOBENZAPRINE 5 MG TAB PO PRN (08:19)
[2023-05-22] MEDS: QUEtiapine 50 MG TAB PO SCH (08:20)
[2023-05-22] MEDS: SODIUM CHLORIDE TAB 1 GM TAB PO SCH ×4 (08:21→20:47)
[2023-05-22] MEDS: SERTRALINE 50 MG TAB PO SCH (08:26)
--- NOTE | 2023-05-22 08:55 | P.PN ---
Progress Note - Text Progress Note Date: 05/22/23 Patient seen and examined this morning. Patient is resting comfortably in bed. Surgical incision to the thoracic spine, incision is well-approximated with juancarlos intact. New dressing has been applied. Patient needs to be up to chair for all meals. She needs to be repositioned in bed to keep pressure off incision. Patient continues to deny any numbness or tingling to the bilateral lower extremities. Encourage patient to continue working with physical therapy. No acute concerns.
--- NOTE | 2023-05-22 10:40 | P.PN ---
Subjective Patient is seen in follow-up for hyponatremia. Sodium level better today. Off IV fluids. She is on fluid restriction. Oral intake is poor. Nonoliguric. Patient is a poor historian. Vital signs are stable. General: No acute distress. HEENT: Head exam is unremarkable. LUNGS: No audible rhonchi or wheezes. HEART: Rate and Rhythm are regular. ABDOMEN: Nontender. EXTREMITITES: No edema. Objective - Vital Signs Vital signs: Vital Signs Temp 97.9 F 05/22/23 07:17 Pulse 92 05/22/23 07:17 Resp 18 05/22/23 07:17 BP 148/89 05/22/23 07:17 Pulse Ox 91 L 05/22/23 07:17 FiO2 Intake & Output 05/21/23 05/22/23 05/22/23 18:59 06:59 18:59 Intake Total 440 Output Total 200 250 Balance -200 190 Intake: Oral 440 Output: Urine 200 250 Other: Voiding Method Indwelling Catheter ABP, PAP, CO, CI - Last Documented Arterial Blood Pressure 133/105 - Labs CBC & Chem 7: 05/18/23 20:26 05/22/23 05:35 Labs: Abnormal Lab Results - Last 24 Hours (Table) 05/21/23 05/22/23 Range/Units 07:47 05:35 Sodium 129 L (137-145) mmol/L Creatinine 0.30 L (0.52-1.04) mg/dL Glucose 70 L (74-99) mg/dL Osmolality 268 L (275-295) mOsm/kg Assessment and Plan Plan: Assessment: 1. Hyponatremia. Euvolemic. Component of SIADH from pain. Also component of poor solute intake. No significant improvement normal saline. TSH normal. Sodium level 129 today. Urine sodium 44 and urine osmolality 488. TSH normal. 2. Status post T9 fracture reduction, T6-T10 posterior lateral fusion, sta bilization and decompressive laminectomy this admission. 3. Hypokalemia from poor intake. Replaced. Better. Plan: Encourage oral intake, particularly protein. Add Ensure. Maintain salt tabs. Maintain 1200 cc fluid restriction. Repeat labs in the morning. Will give Samsca if no improvement.
[2023-05-22] MEDS ORDERED: ASPIRIN 325 MG TAB PO STA (16:02)
--- NOTE | 2023-05-22 16:07 | P.PN ---
Progress Note - Text Progress Note Date: 05/22/23 Chief Complaint: Falls This is a pleasant 68-year-old patient, follows with Dr. Malik Beyer. Patient on 03/31/2023 underwent lower back surgery by Dr.) Flores. Rather extensive surgery. Following that patient was discharged to [facility] for rehab. Patient then readmitted from April 13 through April 17. Was found to have pulmonary embolism. Was this time discharged to [facility]. Patient has been home for few days. Been having falls. Some low back pain. This morning patient was on the toilet and she fell down hitting the head. Did not pass out. Cervical collar was placed. CT scans of brain unremarkable. She been having some weakness of the lower extremity. Apparently at home the dog ran into her and she had fallen on her left side. She is also having trouble getting out of bed. Has been using a walker. No change in bowel or urine pattern. No fever or chills. Orthopedics/Dr. Flores was consulted I spoke to patient's son Jeronimo over the phone. Patient stopped taking her Xarelto since she left [facility]. She has signed herself out AMA within 24 hours. Left AMA. Patient be resumed Xarelto for now. May 14: Patient was seen by pulmonary. Patient has positive troponin. No chest pain. Cardiology was consulted. Patient's blood culture drawn on the growing gram-positive cocci in clusters. Patient has a normal white count. Afebrile. On IV Ancef. Chest CTA: Negative for PE. Pending surgery his Xarelto was not resumed. Seen by cardiology. Discussed at length with the patient. Since he has left the rehab AMA. She never resumed her Xarelto. Patient surgery has been postponed for now. Repeat blood cultures have been ordered today. Total time spent today about an hour with over 40 minutes of discussion. May 15: Saw the patient this morning. Very anxious to get the surgery done. Her blood cultures are coming showing coagulase-negative staph. Could be a contaminant. Patient has been on IV Ancef. Very little back pain if any. Patient will talk to Dr. Flores later this morning. May 16: Postoperatively patient went to the ICU. This morning feeling well. Sitting up in a chair. Pain controlled. Occasionally confused. Son at the bedside. Blood pressure was up. Medication adjusted. IV Ancef. Repeat blood culture showing no growth after 48 hours. May 17: Resting in bed. Comfortable. Pain controlled. Blood cultures confirmed Staph epidermidis. Repeat cultures have been negative. Keep on IV Ancef for now. May 18: In bed. Comfortable. Tolerating diet. This afternoon blood pressure did drop. About 70 systolic. IV bolus fluid was ordered. Note 2 days ago Coreg was increased by cardiology. I have scaled back to the home dose of 3.125 mg. She was up to 12.5 mg twice daily. Subsequently blood pressure came up 113 x 73. Patient sodium is also dropped to 125. Put on strict fluid restriction. Avoid free water. Discussed with the nurse and the patient. Changed from a heart healthy diet to regular diet. May 19: Eating some. Blood pressure is gone up today. Will increase Coreg to 6.25 mg twice daily. Sodium is still running low. Free water restriction again reemphasized. Patient has been increasingly confused. Does take a few psychiatry medications. Will consult Dr. Winn. Patient has been put back on Xarelto as per pulmonary. Patient not ready for discharge. Sodium tablets added for low serum osmolality. Repeat blood cultures negative. Will DC Ancef. May 20: Up in a bed. Somewhat confused. Son at the bedside. On Xarelto. Eating some. Will started on sodium tablets yesterday. Sodium still low this morning. Fluid restriction in place. Patient seen by psychiatry Dr. Winn. Seroquel increased to 400 mg at night. Zyprexa was also added. Will DC Percocet and use Tylenol 3. DC Dilaudid. Consult nephrology for hyponatremia. Blood pressure better controlled. Care was discussed with son at the bedside. May 21: Patient remains a bit delirious. Discussed with Dr. Winn from psychiatry. Will cut back Zoloft to 50 mg in the morning. Add 50 mg of Seroquel in the morning. Seen by nephrology. Again reinforced avoid tea water and coffee. Spoke to rn case management. Patient not ready for discharge. May 22: Some improvement patient sodium. Continue with fluid restriction. Patient slept well last night. Planning for discharge tomorrow to rehab. Pain well-controlled. Continue sodium chloride tablets. Active Medications Acetaminophen (Acetaminophen Tab 325 Mg Tab) 650 mg PO Q6HR PRN PRN Reason: Mild Pain or Fever > 100.5 Last Admin: 05/16/23 06:46 Dose: 650 mg Acetaminophen/Codeine Phosphate (Acetaminophen-Codeine 300-30mg Tab) 1 each PO Q6H PRN PRN Reason: Pain Carvedilol (Carvedilol 6.25 Mg Tab) 6.25 mg PO BID-W/MEALS [facility] Last Admin: 05/22/23 08:18 Dose: 6.25 mg Cyclobenzaprine HCl (Cyclobenzaprine 5 Mg Tab) 5 mg PO TID PRN PRN Reason: Muscle Spasm Last Admin: 05/22/23 08:19 Dose: 5 mg Ergocalciferol (Ergocalciferol 1,250 Mcg (50,000 Iu) Capsule) 1,250 mcg PO Q14D [facility] Last Admin: 05/19/23 08:34 Dose: 1,250 mcg Haloperidol (Haloperidol 5 Mg Tab) 5 mg PO Q6HR PRN PRN Reason: Agitation Lamotrigine (Lamotrigine 100 Mg Tab) 200 mg PO BID [facility] Last Admin: 05/22/23 08:18 Dose: 200 mg Levothyroxine Sodium (Levothyroxine 88 Mcg Tab) 88 mcg PO 0630 [facility] Last Admin: 05/22/23 06:27 Dose: 88 mcg Miscellaneous Information (Potassium Replacement Protocol 1 Each Misc) 1 each MISCELLANE DAILY PRN; Protocol PRN Reason: Per Protocol Naloxone HCl (Naloxone 0.4 Mg/Ml 1 Ml Vial) 0.2 mg IV Q2M PRN PRN Reason: Opioid Reversal Patient's Own ( Linaclotide [Linzess ] 145 Mcg Capsule) 145 mcg PO DAILY PRN PRN Reason: Constipation Olanzapine (Olanzapine 5 Mg Tab) 5 mg PO TID PRN PRN Reason: Severe Agitation Last Admin: 05/21/23 22:52 Dose: 5 mg Ondansetron HCl (Ondansetron 4 Mg/2 Ml Vial) 4 mg IVP Q8HR PRN PRN Reason: Nausea And Vomiting Last Admin: 05/17/23 19:42 Dose: 4 mg Petrolatum (Zinc Oxide Paste (Z-Guard) 1 Applic) 1 applic TOPICAL BID PRN; Protocol PRN Reason: Wound Healing Last Admin: 05/21/23 05:25 Dose: 1 applic Quetiapine Fumarate (Quetiapine 400 Mg Tab) 400 mg PO HS [facility] Last Admin: 05/21/23 19:52 Dose: 400 mg Quetiapine Fumarate (Quetiapine 50 Mg Tab) 50 mg PO DAILY [facility] Last Admin: 05/22/23 08:20 Dose: 50 mg Rivaroxaban (Rivaroxaban 20 Mg Tab) 20 mg PO W/SUPPER [facility]; Protocol Last Admin: 05/21/23 17:05 Dose: 20 mg Senna (Sennosides 8.6 Mg Tab) 8.6 mg PO DAILY [facility] Last Admin: 05/22/23 08:18 Dose: 8.6 mg Sertraline HCl (Sertraline 50 Mg Tab) 50 mg PO DAILY [facility] Last Admin: 05/22/23 08:26 Dose: 50 mg Sodium Chloride (Sodium Chloride Tab 1 Gm Tab) 1 gm PO QID [facility] Last Admin: 05/22/23 13:17 Dose: 1 gm Trazodone HCl (Trazodone Hcl 50 Mg Tab) 50 mg PO HS PRN PRN Reason: Insomnia Last Admin: 05/21/23 19:52 Dose: 50 mg Past medical history to include: Iron deficiency anemia, gastric bypass, bipolar disorder, osteoarthritis, constipation possibly from narcotics Social history: Recently in rehab. Prior history of prescription drug abuse. [place]. Has been clean since 2014. Son lives at home with her Physical examination: VITAL SIGNS: 97.9, 92, 18, 148/89, 91% room air GENERAL: Up in a chair EYES: Pupils equal. Conjunctiva normal. HEENT: External appearance of nose and ears normal, oral cavity grossly normal. NECK: JVD not raised HEART: First and second heart sounds are normal; no edema. LUNGS: Respiratory rate normal; clear to auscultation. ABDOMEN: Soft, nontender, liver spleen not palpable, no masses palpable. PSYCH: Does repeatedly answer the same questions or asked the same questions. MUSCULOSKELETAL:No Clubbing/cyanosis;muscles-grossly intact. OA. NEUROLOGICAL: Cranial nerves grossly intact. 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 Able to move both the lower extremity. INVESTIGATIONS, reviewed in the clinical context: May 22: Sodium 129 creatinine 0.3. May 21: Sodium 126 potassium 3.1 creatinine 0.31 TSH 1.6. Urine osmolality 488 urine random sodium 44 May 20: Sodium 124 potassium 3.6 creatinine 0.3 May 19: Sodium 125 potassium 3.6 creatinine 0.39 serum osmolality 261 May 18: White count 11.1 hemoglobin 11.7 potassium 3.2 sodium 125 May 16: White count 11.2 hemoglobin 11.4 potassium 3.2 creatinine 0.24 May 15: Sodium 129 potassium 3.5 creatinine 0.36 May 14: White count 10.1 hemoglobin 10.7 sodium 129 potassium 3.5 creatinine 0.24. Troponin I: 0.140, 0.133, 0.125. proBNP 2870 Blood culture [May 12] Staphylococcus epidermidis. May 14: Negative CT brain: Negative for fracture May 12, 2023: White count 3.7 hemoglobin 11.5 platelets are 87 sodium 132 potassium 3.9 BUN 8 creatinine 0.26 UA: Leukoesterase positive WBC 182 bacteria moderate Chest x-ray film personally reviewed by me-unremarkable CT scan thoracolumbar spine: T9 vertebral body compression fracture with near complete height loss centrally new from March 31. Postsurgical changes. Previous labs: Hemoglobin 9.1 on April 06 and 13 on April 01 Assessment and plan: -This is a patient with lumbar surgery in March with Dr. Flores. Did better after surgery. Did go to rehab. Patient had a fall at home. 2 more falls after that. Some increased low back pain and weakness in the lower extremity. Being followed by Dr. Flores -Essential hypertension, Coreg 6.25 mg twice daily -Blood cultures growing coagulase-negative Staphylococcus. Probably contaminant. Repeat blood culture from May 14 negative. Stop IV Ancef -Acute T9 vertebral body compression fracture which is reported to be new from March 31. Patient had a fall 2 weeks ago when her dog and ran into her at home. Open treatment of T9 fracture with reduction. T6-T10 instrumented post lateral fusion. With stabilization. Decompressive laminectomy. Etc. with Dr. Flores May 16, 2023 Pain well-controlled. -Acute pulmonary embolism. March 2023 l Apparently patient not been taking his Xarelto for at least last 2-1/[address] scan this admission negative for PE-pulmonary following Resumed on Xarelto - gait dysfunction following surgery. Patient did get rehab Does use a walker -Bipolar disorder: ImprovingTrazodone. Lamictal. Seroquel. Seen by Dr. Winn from psychiatry: Seroquel increased to 400 mg nightly. Zyprexa added as needed Discussed with Dr. Winn. 50 mg of Seroquel in the morning.. Cut back Zoloft to 50 mg . -Hypothyroid Synthroid 88 g a day -Hypoosmolar hyponatremia: Some improvement regular diet. . Increase fluid restriction 1200 cc a day. Avoid free water. Salt tablets Dr. Dutton following -Acute UTI with cystitis. IV Ancef-completed course Continue current treatment plan. Hopefully plan for discharge to rehab tomorrow. Past Medical History Past Medical History: No Reported History Additional Past Medical History / Comment(s): IRON DEFICIENCY ANEMIA. History of Any Multi-Drug Resistant Organisms: None Reported Past Surgical History: Back Surgery, Bariatric Surgery, Orthopedic Surgery Additional Past Surgical History / Comment(s): right shoulder, left shoulder, gastric bypass Past Anesthesia/Blood Transfusion Reactions: No Reported Reaction Past Psychological History: Anxiety, Bipolar, Depression Smoking Status: Never smoker Past Alcohol Use History: Abuse Additional Past Alcohol Use History / Comment(s): Pt. drank 3 times a week heavily for 10 yrs. and quit 2 yrs. ago. Past Drug Use History: Prescription Drug Abuse
[2023-05-22] MEDS: RIVAROXABAN 20 MG TAB PO SCH (18:01)
[2023-05-22] MEDS: QUEtiapine 400 MG TAB PO SCH (20:47)
[2023-05-23] MEDS: LEVOTHYROXINE 88 MCG TAB PO SCH (06:03)
[2023-05-23] MEDS: SENNOSIDES 8.6 MG TAB PO SCH (09:04)
[2023-05-23] MEDS: lamoTRIgine 100 MG TAB PO SCH (09:04)
[2023-05-23] MEDS: carvediloL 6.25 MG TAB PO SCH (09:05)
[2023-05-23] MEDS: SERTRALINE 50 MG TAB PO SCH (09:05)
[2023-05-23] MEDS: QUEtiapine 50 MG TAB PO SCH (09:05)
[2023-05-23] MEDS: SODIUM CHLORIDE TAB 1 GM TAB PO SCH ×2 (09:06→12:48)
[2023-05-23 09:47] LABS: Blood Urea Nitrogen 8.7 mg/dL (9.0-27.0); Calcium 8.5 mg/dL (8.7-10.3); Carbon Dioxide 21.5 mmol/L (21.6-31.8); Chloride 100 mmol/L (96-109); Glucose 67 mg/dL (70-110); Magnesium 1.7 mg/dL (1.5-2.4); Potassium 4.1 mmol/L (3.5-5.5); Sodium 132 mmol/L (135-145)
--- NOTE | 2023-05-23 10:56 | P.PN ---
Subjective Progress Note Date: 05/23/23 Patient is seen in follow-up for hyponatremia. Sodium level stable today, she remains confused. Discussed with son at bedside, all questions answered. Vital signs are stable. General: No acute distress, confused HEENT: Head exam is unremarkable. LUNGS: No audible rhonchi or wheezes. HEART: Rate and Rhythm are regular. ABDOMEN: Nontender. EXTREMITITES: No edema. Objective - Vital Signs Vital signs: Vital Signs Temp 97.6 F 05/23/23 02:17 Pulse 83 05/23/23 06:55 Resp 16 05/23/23 06:55 BP 107/71 05/23/23 08:55 Pulse Ox 92 L 05/23/23 06:55 FiO2 Intake & Output 05/22/23 05/23/23 05/23/23 18:59 06:59 18:59 Intake Total 720 Output Total 400 250 Balance -400 470 Intake: Oral 720 Output: Urine 400 250 Other: Voiding Method Indwelling Catheter Indwelling Catheter ABP, PAP, CO, CI - Last Documented Arterial Blood Pressure 133/105 - Labs CBC & Chem 7: 05/18/23 20:26 05/23/23 05:47 Labs: Abnormal Lab Results - Last 24 Hours (Table) 05/22/23 05/22/23 05/22/23 Range/Units 16:01 18:28 22:01 Sodium (135-145) mmol/L Carbon Dioxide (21.6-31.8) mmol/L BUN (9.0-27.0) mg/dL Creatinine (0.6-1.5) mg/dL BUN/Creatinine Ratio (12.00-20.00) Ratio Glucose (70-110) mg/dL Calcium (8.7-10.3) mg/dL Troponin I 0.130 H* 0.114 H* 0.112 H* (0.000-0.034) ng/mL 05/23/23 Range/Units 05:47 Sodium 132 L (135-145) mmol/L Carbon Dioxide 21.5 L (21.6-31.8) mmol/L BUN 8.7 L (9.0-27.0) mg/dL Creatinine 0.3 L (0.6-1.5) mg/dL BUN/Creatinine Ratio 29.00 H (12.00-20.00) Ratio Glucose 67 L (70-110) mg/dL Calcium 8.5 L (8.7-10.3) mg/dL Troponin I (0.000-0.034) ng/mL Assessment and Plan Plan: Assessment: 1. Hyponatremia. Euvolemic. Component of SIADH from pain. Also component of poor solute intake. Improved with fluid restriction. TSH normal. Sodium level 132 today. Urine sodium 44 and urine osmolality 488. TSH normal. 2. Status post T9 fracture reduction, T6-T10 posterior lateral fusion, stabilization and decompressive laminectomy this admission. 3. Hypokalemia from poor intake. Replaced. Better. Plan: Encourage oral intake, particularly protein. Maintain salt tabs. Maintain 1200 cc fluid restriction. Clear for discharge from nephrology standpoint
[2023-05-23] MEDS: CYCLOBENZAPRINE 5 MG TAB PO PRN (12:48)
--- NOTE | 2023-05-23 13:33 | P.PN ---
Subjective Progress Note Date: 05/23/23 History of present illness: This is a 68-year-old female patient of Dr. Medina with past medical history of hypertension, moderate MR, mild AR, family history of coronary artery disease. We have been asked to evaluate the patient for elevated troponin and preop clearance. Patient had original back surgery done on 03/31/2023 on the lumbar/S1 area. She apparently went to senior care and about 1 month ago she was diagnosed with pulmonary embolism. Patient was brought into the hospital at that time for chest discomfort and palpitation and seen by cardiology. No arrhythmias were found on telemetry/EKGs. Patient was subsequently diagnosed with PE after CTA of the chest. Patient apparently signed out AMA from the senior care and it seems she has not been taking Xarelto. It is unknown how long she has not been taking her medication. She presented to the hospital on May 12 after a fall or possibly multiple falls with low back pain and weakness. She has been admitted to the hospital and seen by orthopedics with plan for T9 ORIF and revision of the lumbar surgery. Patient currently denies having any chest pain or shortness of breath. She states that she is usually active but according to staff, patient has had multiple falls. She has never had any cardiac stent done and no history of diabetes. Patient is noted to have poor memory recall and obviously has been noncompliant with medication regime. EKG sinus rhythm with Q waves in the inferior leads CTA of the chest revealed no acute pulmonary embolism. Minimal pleural effusions with some adjacent compressive atelectasis. CTA of the chest that was performed on 04/15/2023 was positive for pulmonary emboli on the right. Troponin 0.140. proBNP 2870. Sodium 132, potassium 3.9, creatinine 0.26. WBC 13.7, hemoglobin 9.5. Urinalysis positive for UTI Home cardiac medications: Coreg 3.125 mg twice daily, Lasix 20 mg daily as needed, also on levothyroxine 88 mcg daily. Noted that Xarelto was not listed on her home medication list. Echocardiogram performed on 04/16/2023 reveals mildly increased left ventricular wall thickness, left ventricular ejection fraction 50 to 55%, RVSP 23, mild regurgitation, mild tricuspid regurgitation. 05/15 Troponins were 0.14, 0.133 and 0.125. Echocardiogram reveals limited for left v entricular function with normal LV systolic function. Estimated at 50 to 55%. Blood pressure 139/81, heart rate 91. Patient continues to be quite confused and surgery is scheduled for today. 05/16 Patient is s/p spinal surgery that was performed on 05/15. She was seen yesterday in the intensive care unit and Coreg was increased due to hypertension and tachycardia. Patient is seen today in follow-up on the [facility] floor. Today, blood pressure is 124/81, heart rate 106. Potassium noted to be 3.2, sodium 123, chloride 97, creatinine 0.34. Hemoglobin 11.7, WBC 11.4, platelet count 407. Patient remains very confused. 05/23 Cardiology reconsulted for chest pain. EKG is stable. Trop 0.130, 0.114, 0.112, stable from admission. Pt with some confusion. Denies any chest pain or pressure today. Physical examination: Gen: This is a 68-year-old female, resting in bed appears to be in no acute distress. VS: reviewed HEENT: Head is atraumatic, normocephalic. Pupils equal, round. Sclerae is anicteric. LUNGS: Clear to auscultation. No wheezes or rhonchi. No intercostal retractions. HEART: Regular rate and rhythm. No murmur. Chest pain is reproducible on exam. EXTREMITIES: No pedal edema. No calf tenderness. NEUROLOGICAL: Patient is confused. Assessment: Elevated troponin, flat, acute coronary syndrome ruled out UTI Confusion Recent pulmonary embolism T9 burst fracture Proximal junction failure [id number] fusion Recent lumbar surgery Hypertension Chest pain, atypical Plan: EKG is stable. Troponins remained flat. Continue patient's home cardiac medications. Recommend patient be on anticoagulation once cleared by orthopedic surgery for recent pulmonary embolism diagnosed in March 2023. No further cardiac workup is pursued at this time. OK to discharge from cardiology. Nurse practitioner note has been reviewed, I agree with documented findings and plan of care. Patient was seen and examined. Objective - Vital Signs Vital signs: Vital Signs Temp 97.6 F 05/23/23 02:17 Pulse 83 05/23/23 06:55 Resp 16 05/23/23 06:55 BP 107/71 05/23/23 08:55 Pulse Ox 92 L 05/23/23 06:55 FiO2 Intake & Output 05/22/23 05/23/23 05/23/23 18:59 06:59 18:59 Intake Total 720 Output Total 400 250 Balance -400 470 Intake: Oral 720 Output: Urine 400 250 Other: Voiding Method Indwelling Catheter Indwelling Catheter ABP, PAP, CO, CI - Last Documented Arterial Blood Pressure 133/105 - Labs CBC & Chem 7: 05/18/23 20:26 05/23/23 05:47 Labs: Abnormal Lab Results - Last 24 Hours (Table) 05/22/23 05/22/23 05/22/23 Range/Units 16:01 18:28 22:01 Sodium (135-145) mmol/L Carbon Dioxide (21.6-31.8) mmol/L BUN (9.0-27.0) mg/dL Creatinine (0.6-1.5) mg/dL BUN/Creatinine Ratio (12.00-20.00) Ratio Glucose (70-110) mg/dL Calcium (8.7-10.3) mg/dL Troponin I 0.130 H* 0.114 H* 0.112 H* (0.000-0.034) ng/mL 05/23/23 Range/Units 05:47 Sodium 132 L (135-145) mmol/L Carbon Dioxide 21.5 L (21.6-31.8) mmol/L BUN 8.7 L (9.0-27.0) mg/dL Creatinine 0.3 L (0.6-1.5) mg/dL BUN/Creatinine Ratio 29.00 H (12.00-20.00) Ratio Glucose 67 L (70-110) mg/dL Calcium 8.5 L (8.7-10.3) mg/dL Troponin I (0.000-0.034) ng/mL
--- NOTE | 2023-05-23 13:45 | P.DS ---
Providers Date of admission: 05/12/23 11:14 Expected date of discharge: 05/23/23 Attending physician: Declan Orta Consults: 05/12/23 11:04 Consult Physician Urgent Consulting Provider: Bertin Flores Consult Reason/Comments: Status post back surgery, multiple falls Do you want consulting provider notified?: Yes 05/13/23 19:39 Consult Physician Routine Consulting Provider: Yecenia Arias Consult Reason/Comments: Cleared for OR, Pt had a PE last month, OR called for clearance Do you want consulting provider notified?: Yes 05/14/23 08:27 Consult Physician Routine Consulting Provider: Megan Archibald Consult Reason/Comments: Elevated troponin, pre op clearance Do you want consulting provider notified?: Yes 05/19/23 20:30 Consult Physician Routine Consulting Provider: Anthony Winn Consult Reason/Comments: Questionable psychosis Do you want consulting provider notified?: Yes 05/20/23 18:44 Consult Physician Routine Consulting Provider: Anup Dutton Consult Reason/Comments: Low-sodium Do you want consulting provider notified?: Yes 05/22/23 15:57 Consult Physician Urgent Consulting Provider: Sandeep Navarro Consult Reason/Comments: chest pain, abnormal ekg Do you want consulting provider notified?: Yes Primary care physician: Rolando Beyer [place] [facility] Course: Chief Complaint: Falls This is a pleasant 68-year-old patient, follows with Dr. Malik Beyer. Patient on 03/31/2023 underwent lower back surgery by Dr.) Flores. Rather extensive surgery. Following that patient was discharged to [facility] for rehab. Patient then readmitted from April 13 through April 17. Was found to have pulmonary embolism. Was this time discharged to [facility]. Patient has been home for few days. Been having falls. Some low back pain. This morning patient was on the toilet and she fell down hitting the head. Did not pass out. Cervical collar was placed. CT scans of brain unremarkable. She been having some weakness of the lower extremity. Apparently at home the dog ran into her and she had fallen on her left side. She is also having trouble getting out of bed. Has been using a walker. No change in bowel or urine pattern. No fever or chills. Orthopedics/Dr. Flores was consulted I spoke to patient's son Jeronimo over the phone. Patient stopped taking her Xarelto since she left [facility]. She has signed herself out AMA within 24 hours. Left AMA. Patient be resumed Xarelto for now. May 14: Patient was seen by pulmonary. Patient has positive troponin. No chest pain. Cardiology was consulted. Patient's blood culture drawn on the growing gram-positive cocci in clusters. Patient has a normal white count. Afebrile. On IV Ancef. Chest CTA: Negative for PE. Pending surgery his Xarelto was not resumed. Seen by cardiology. Discussed at length with the patient. Since he has left the rehab AMA. She never resumed her Xarelto. Patient surgery has been postponed for now. Repeat blood cultures have been ordered today. Total time spent today about an hour with over 40 minutes of discussion. May 15: Saw the patient this morning. Very anxious to get the surgery done. Her blood cultures are coming showing coagulase-negative staph. Could be a contaminant. Patient has been on IV Ancef. Very little back pain if any. Patient will talk to Dr. Flores later this morning. May 16: Postoperatively patient went to the ICU. This morning feeling well. Sitting up in a chair. Pain controlled. Occasionally confused. Son at the [facility]. Blood pressure was up. Medication adjusted. IV Ancef. Repeat blood culture showing no growth after 48 hours. May 17: Resting in bed. Comfortable. Pain controlled. Blood cultures con firmed Staph epidermidis. Repeat cultures have been negative. Keep on IV Ancef for now. May 18: In bed. Comfortable. Tolerating diet. This afternoon blood pressure did drop. About 70 systolic. IV bolus fluid was ordered. Note 2 days ago Coreg was increased by cardiology. I have scaled back to the home dose of 3.125 mg. She was up to 12.5 mg twice daily. Subsequently blood pressure came up 113 x 73. Patient sodium is also dropped to 125. Put on strict fluid restriction. Avoid free water. Discussed with the nurse and the patient. Changed from a heart healthy diet to regular diet. May 19: Eating some. Blood pressure is gone up today. Will increase Coreg to 6.25 mg twice daily. Sodium is still running low. Free water restriction again reemphasized. Patient has been increasingly confused. Does take a few psychiatry medications. Will consult Dr. Winn. Patient has been put back on Xarelto as per pulmonary. Patient not ready for discharge. Sodium tablets adde d for low serum osmolality. Repeat blood cultures negative. Will DC Ancef. May 20: Up in a bed. Somewhat confused. Son at the bedside. On Xarelto. Eating some. Will started on sodium tablets yesterday. Sodium still low this morning. Fluid restriction in place. Patient seen by psychiatry Dr. Winn. Seroquel increased to 400 mg at night. Zyprexa was also added. Will DC Percocet and use Tylenol 3. DC Dilaudid. Consult nephrology for hyponatremia. Blood pressure better controlled. Care was discussed with son at the bedside. May 21: Patient remains a bit delirious. Discussed with Dr. Winn from psychiatry. Will cut back Zoloft to 50 mg in the morning. Add 50 mg of Seroquel in the morning. Seen by nephrology. Again reinforced avoid tea water and coffee. Spoke to case operator. Patient not ready for discharge. May 22: Some improvement patient sodium. Continue with fluid restriction. Patient slept well last night. Planning for discharge tomorrow to rehab. Pain well-controlled. Continue sodium chloride tablets. May 23: Comfortable. No new issues. Seen by cardiology Dr. Navarro. Cleared for discharge. Will decrease sodium chloride to twice daily. Will stop Zoloft. Discharge to rehab. Past medical history to include: Iron deficiency anemia, gastric bypass, bipolar disorder, osteoarthritis, constipation possibly from narcotics Social history: Recently in rehab. Prior history of prescription drug abuse. eyefactive. Has been clean since 2014. Son lives at home with her Physical examination: VITAL SIGNS: 97.6, 78, 16, 120/83, 92% room air GENERAL: Resting in bed, comfortable EYES: Pupils equal. Conjunctiva normal. HEENT: External appearance of nose and ears normal, oral cavity grossly normal. NECK: JVD not raised HEART: First and second heart sounds are normal; no edema. LUNGS: Respiratory rate normal; clear to auscultation. ABDOMEN: Soft, nontender, liver spleen not palpable, no masses palpable. PSYCH: Does repeatedly answer the same questions or asked the same questions. MUSCULOSKELETAL:No Clubbing/cyanosis;muscles-grossly intact. OA. NEUROLOGICAL: Cranial nerves grossly intact. Good bag machine tender in both the arms. Able to move both the lower extremity. INVESTIGATIONS, reviewed in the clinical context: May 23: Sodium 132 potassium 4.1 creatinine 0.3 May 21: Sodium 126 potassium 3.1 creatinine 0.31 TSH 1.6. Urine osmolality 488 urine random sodium 44 May 18: White count 11.1 hemoglobin 11.7 potassium 3.2 sodium 125 May 14: White count 10.1 hemoglobin 10.7 sodium 129 potassium 3.5 creatinine 0.24. Troponin I: 0.140, 0.133, 0.125. proBNP 2870 Blood culture [May 12] Staphylococcus epidermidis. May 14: Negative CT brain: Negative for fracture May 12, 2023: White count 3.7 hemoglobin 11.5 platelets are 87 sodium 132 potassium 3.9 BUN 8 creatinine 0.26 UA: Leukoesterase positive WBC 182 bacteria moderate Chest x-ray film personally reviewed by me-unremarkable CT scan thoracolumbar spine: T9 vertebral body compression fracture with near complete height loss centrally new from March 31. Postsurgical changes. Previous labs: Hemoglobin 9.1 on April 06 and 13 on April 01 Assessment and plan: -This is a patient with lumbar surgery in March with Dr. Flores. Did better after surgery. Did go to rehab. Patient had a fall at home. 2 more falls after that. Some increased low back pain and weakness in the lower extremity. Being followed by Dr. Flores -Essential hypertension, Coreg 6.25 mg twice daily -Blood cultures growing coagulase-negative Staphylococcus. Probably contaminant. Repeat blood culture from May 14 negative. Stop IV Ancef -Acute T9 vertebral body compression fracture which is reported to be new from March 31. Patient had a fall 2 weeks ago when her dog and ran into her at home. Open treatment of T9 fracture with reduction. T6-T10 instrumented post lateral fusion. With stabilization. Decompressive laminectomy. Etc. with Dr. Flores May 16, 2023 Pain well-controlled. -Acute pulmonary embolism. March 2023 l Apparently patient not been taking his Xarelto for at least last 2-1/[address] scan this admission negative for PE-pulmonary following Resumed on Xarelto - gait dysfunction following surgery. Patient did get rehab Does use a walker -Bipolar disorder: ImprovingTrazodone. Lamictal. Seroquel. Seen by Dr. Winn from psychiatry: Seroquel increased to 400 mg nightly. Zyprexa added as needed Discussed with Dr. Winn. 50 mg of Seroquel in the morning.. Cut back Zoloft to 50 mg . -Hypothyroid Synthroid 88 g a day -Hypoosmolar hyponatremia: Better regular diet. . Increase fluid restriction 1500 cc a day. Avoid free water. Salt tablets Follow-up with Dr. Dutton -Acute UTI with cystitis. IV Ancef-completed course Disposition: Subacute rehab at [facility] Past Medical History Past Medical History: No Reported History Additional Past Medical History / Comment(s): IRON DEFICIENCY ANEMIA. History of Any Multi-Drug Resistant Organisms: None Reported Past Surgical History: Back Surgery, Bariatric Surgery, Orthopedic Surgery Additional Past Surgical History / Comment(s): right shoulder, left shoulder, gastric bypass Past Anesthesia/Blood Transfusion Reactions: No Reported Reaction Past Psychological History: Anxiety, Bipolar, Depression Smoking Status: Never smoker Past Alcohol Use History: Abuse Additional Past Alcohol Use History / Comment(s): Pt. drank 3 times a week heavily for 10 yrs. and quit 2 yrs. ago. Past Drug Use History: Prescription Drug Abuse Plan - Discharge Summary Discharge Rx Participant: Yes New Discharge Prescriptions: New cefaDROXiL [Duricef] 500 mg PO Q12HR #20 cap No Action traZODone HCL 150 mg PO HS lamoTRIgine [LaMICtal] 200 mg PO BID 30 Days #60 tablet Levothyroxine Sodium [Synthroid] 88 mcg PO DAILY QUEtiapine FUMARATE [SEROquel] 300 mg PO HS hydrOXYzine pamoate [Vistaril] 25 - 50 mg PO BID PRN PRN Reason: Anxiety Sertraline [Zoloft] 100 mg PO DAILY oxyCODONE HCL/ACETAMINOPHEN [Percocet 10-325 mg] 1 tab PO Q6HR PRN PRN Reason: Pain Ergocalciferol [Vitamin D2 (1250 Mcg = 94755 Iu)] 1,250 mcg PO DIRECTED Furosemide [Lasix] 20 mg PO DAILY PRN PRN Reason: Edema carvediloL [Coreg] 3.125 mg PO BID Linaclotide [Linzess] 145 mcg PO DAILY PRN PRN Reason: Constipation Cyclobenzaprine [Flexeril] 5 mg PO TID PRN PRN Reason: Muscle Spasm Discharge Medication List traZODone HCL 150 mg PO HS 04/10/16 [History] lamoTRIgine [LaMICtal] 200 mg PO BID 30 Days #60 tablet 02/08/18 [Rx] Levothyroxine Sodium [Synthroid] 88 mcg PO DAILY 03/30/23 [History] QUEtiapine FUMARATE [SEROquel] 300 mg PO HS 04/12/23 [History] Cyclobenzaprine [Flexeril] 5 mg PO TID PRN 05/12/23 [History] Ergocalciferol [Vitamin D2 (1250 Mcg = 64908 Iu)] 1,250 mcg PO DIRECTED 05/12/23 [History] Furosemide [Lasix] 20 mg PO DAILY PRN 05/12/23 [History] Linaclotide [Linzess] 145 mcg PO DAILY PRN 05/12/23 [History] Sertraline [Zoloft] 100 mg PO DAILY 05/12/23 [History] carvediloL [Coreg] 3.125 mg PO BID 05/12/23 [History] hydrOXYzine pamoate [Vistaril] 25 - 50 mg PO BID PRN 05/12/23 [History] oxyCODONE HCL/ACETAMINOPHEN [Percocet 10-325 mg] 1 tab PO Q6HR PRN 05/12/23 [History] cefaDROXiL [Duricef] 500 mg PO Q12HR #20 cap 05/18/23 [Rx] Follow up Appointment(s)/Referral(s): Rolando Beyer MD [Primary Care Provider] - 1-2 days Bertin Flores DO [Doctor of Osteopathic Medicine] - 1 Week Activity/Diet/Wound Care/Special Instructions: Spine Discharge and Recovery Instructions Date of Surgery: 05/15/23 Diagnosis: T9 compression fracture Procedure: revision T6-T10 stabilization with T9 ORIF Medications: See medication list All medication refills should be obtained through your primary care doctor or your clinic spine surgeon. Please discuss prescription refills at your follow up appointment. Do not call the hospital for medication refills. Activity: Encourage ambulation with assist of walker, Up and about 6-8x daily PT/OT daily work on balance, strength and mobility Up in chair with all meals Shower daily Brace: Use brace when up and about, do not wear in bed or shower Dressing: Leave your dressing in place for a total of 3 days post operatively. Then you may remove your dressing and leave open to air. Keep the area clean and if not able to keep area clean, then cover with sterile gauze and tape. Showering: You may shower 3 days after your procedure allowing soap and water to run over incision. Do not scrub. Do not soak. Blot dry. Follow up: Please confirm a follow up appointment with your surgeon 2 weeks post operatively. Please make an appointment to follow up with your PCP in 1-2 weeks after surgery for evaluation `3 phase, 3-week plan POST OP WEEKS 1-3 1. Lifting/carrying/pushing/pulling limited to less than 5 pounds. 2. Do not sit for longer than 15 minutes at one time. Get up and walk around. Prolonged sitting is NOT advised. If you lay down, see if you can tolerate laying down on you front (belly side) 3. Walk for periods of 15 minutes = 1 mile but no longer; do it multiple times times each day. 4. Ice your low back after activity. POST OP WEEKS 3-6 1. Lifting limited to less than 20 pounds. 2. Do not sit for longer than 30 minutes at a time. Frequently change positions. Use a sit-to stand workstation or take frequent breaks from sitting if you have returned to work. 3. Walk for 30 minutes each day. If possible, do these three or more times a day POST OP WEEKS 6+ At your 6-week appointment we will give you a physical therapy referral to focus on a core stabilization and strengthening program. You should also work on leg & buttock strengthening, hamstring & quadriceps stretching, and continue a low impact aerobic activity program such as swimming, walking, or riding a stationary bicycle. During the initial 6 weeks after your surgery, you are at the highest risk of re-injuring your spine. You should generally avoid BLTs (bending, lifting and twisting combination motions) and follow the above guidelines to reduce the chance of reinjury. You can anticipate post op appointments in our office at approximately 3 weeks and 6 weeks after your surgery. INCISION CARE: If your incision is not draining you do NOT need to cover it with a dressing. Keep your incision clean, dry and intact. In most cases, we apply skin glue, juancarlos or sutures to the incision at the time of surgery. This will be like a crust or have the appearance of a scab and will fall off in time on its own. The stitches or juancarlos need to be removed at 3 weeks post op appointment. You may begin to shower 3 days after surgery (this allows the glue to blake well). However, please avoid scrubbing the incision site or peeling off any of the skin glue. This will ensure optimal healing of your incision. Also, during this time avoid soaking the incision area in water - this includes swimming pools, hot tubs or baths. No ointments, lotions or oils on the incision until your surgeon allows. Leave juancarlos, sutures or glue in place. Neurological dysfunction that comes on suddenly can also be a sign of a stroke. Below some common symptoms of a stroke are listed: B - balance difficulty such as sudden onset walking or leaning to one side - NEW E - eye problem such as sudden double vision or trouble seeing on one side - NEW F - Facial weakness or numbness on one side - NEW A - Arm or leg weakness or numbness on one side - NEW S - Slurred speech or difficulty with word finding - NEW T - Time is BRAIN! Call 911 as soon as you recognize these symptoms Diet: Consume a regular diet rich in vegetables and lean protein such as chicken or fish. You should consume in a ratio of approximately 20% fats|40% carbohydrates|40%protein. Vegetables, sweet potatoes, brown rice or quinoa are examples of good carbohydrates. Chips, white bread, cookies and sweets/sugar are examples of bad carbohydrates. Limit your bad carbs, go wild with good carbs. "Life's Simple 7" Guidelines as per [place] [employer] These will help you reclaim your life after surgery and custom feed mill operator helper in your recovery, keeping in mind your restrictions. (1) Get Active. Physical activity can help people lose weight, control high blood pressure and cholesterol, feel emotionally better, and sleep better. (2) Control Cholesterol. Avoid a diet high in saturated fat, trans fat, & cholesterol. Limit whole milk & cream, ice cream, butter, egg yolks, processed meats (like sausage and hot dogs), and fatty meats. Choose healthy foods that are low in saturated fat, trans fat and cholesterol which include: Fruits and vegetables, fiber rich grain products (like whole grain pasta and brown rice), lean meat such as chicken, fish, nuts, seeds, and legumes. (3) Eat Better. Eat small portions. Shop at the grocery with a list and do not stray from it. Tips for a healthy diet include: Limit sodium intake to less than 1500mg daily, avoid prepackaged, processed, and fast foods, choose a diet rich in fruits, vegetables, and whole grain, high fiber foods, and limit saturated & cholesterol in your diet. (4) Manage Blood Pressure. If you have high blood pressure, you should have a cuff at home so that you can check your blood pressure regularly. Be sure you have a good cuff. An arm one is generally better than a wrist one. Bring the cuff to a doctor's appointment to validate that the measurements that your cuff are taking are accurate. Take your blood pressure twice daily when you are sitting down and relaxing. Record the numbers in a log and bring this log with you to your doctors' appointments. (5) Lose Weight if your BMI is above 25. A healthy BMI is between 19-25. To calculate Your BMI, you may use a Standard BMI Calculator on the NIH BMI website: <www.nhlbi.nih.gov/guidelines/obesity/BMI/bmicalc.htm>. Weigh oneself daily. If you are overweight, set a goal to lose weight. A pound a week loss if needed is a good target. (6) Reduce Blood Sugar. Limit foods and liquids with "added sugars." (Added sugars include sucrose, fructose, glucose, maltose, dextrose, high fructose corn syrup, corn syrup, concentrated fruit juice and honey). (7) Stop Smoking. If you smoke, quitting smoking is one of the best things that you can do for your health. Smoking increases your risk of heart attack, stroke, and peripheral vascular disease, which is a build-up of plaque in your arteries. Please discard all the cigarettes and lighters in your house. Have a plan for what you will do when you have the urge to smoke. Direct and second- hand smoke shortens your life as well as the lives of your family, friends and others around you. For your health and the health of those around you, please consider quitting! Proper Bending Body Mechanics: Maintain a wide stance with one foot slightly in front of the other. Keep your back straight. Bend utilizing the strength in your hips and knees. Do not bend at the waist. Maintain the lifted object at your waist-level close to your body. Avoid lifting weight that causes immediately pain or pain anywhere in the body afterwards. Smoking/Nicotine If there was ever one thing that you could do to increase your overall health, decrease your risk of cardiovascular problems by about 39% the second you make the choice, it is to STOP SMOKING. Your body's most instant gratification is the second you stop smoking. We have all heard the studies, read the articles but it is true, smoking is extremely bad for your overall health, and moreover it is detrimental to your bone health. Nicotine, IN ANY FORM, kills bone cells, prevents your body from healing fractures, and significantly prolongs healing after surgery. In spine surgery specifically, it increases your risk of not healing your bones to create a fusion and increases your risk of having a revision surgery due to this up to 60%. I know it is hard. I know it feels impossible. But there are ways. Take control of your life. We are here to help you through it. And when you are ready, ask us and we can direct you to help if you desire. Use the START Plan to Quit Smoking (please visit the HelpguHubskip.org website liste d below for more information): S = Set a quit date. Choose a date within the next 2 weeks, so you have enough time to prepare without losing your motivation to quit. If you mainly smoke at work, quit on the weekend, so you have a few days to adjust to the change. T = Tell family, friends, and co-workers that you plan to quit. Let your friends and family in on your plan to quit smoking and tell them you need their support and encouragement to stop. Look for a quit inessa who wants to stop smoking as well. You can help each other get through the rough times. A = Anticipate and plan for the challenges you'll face while quitting. Most people who begin smoking again do so within the first 3 months. You can help yourself make it through by preparing ahead for common challenges, such as nicotine withdrawal and cigarette cravings. R = Remove cigarettes and other tobacco products from your home, car, and work. Throw away all your cigarettes (no emergency pack!), lighters, ashtrays, and matches. Wash your clothes and freshen up anything that smells like smoke. Shampoo your car, clean your drapes and carpet, and steam your furniture. T = Talk to your doctor about getting help to quit. Your doctor can prescribe medication to help with withdrawal and suggest other alternatives. If you can't see a doctor, you can get many products over the counter at your local pharmacy or grocery store, including the nicotine patch, nicotine lozenges, and nicotine gum. Resources for Quitting Smoking: <https://www.[place].gov/documents/[facility]/Quit_Tobacco_Resources_ for_patients_313480_7.pdf> Supplementation: Take recommended dosages of Vitamin D and Calcium to help fortify your bones and help them to heal. See your health maintenance packet for dosages and recommended levels. DVT/VTE prophylaxis: You will be given compression stockings from the hospital. Wear these daily for the first two weeks after surgery. You may take them off at night. You may be prescribed a medication to help thin your blood. Take this as directed. If you are not prescribed this medication, early and frequent ambulation has been shown to be the best prophylaxis to deep vein thrombosis and sequelae related to this event. Discharge/Stand Alone Forms: Outpatient Counseling Discharge Disposition: TRANSFER TO SNF/ECF
[2023-05-23 14:38] VITALS: BP 117/76; PULSE 78; RESP 18; TEMP 98.1
--- NOTE | 2023-05-25 13:03 | CDI ---
Documentation Clarification Form Date: 05/25/2023 12:49:39 PM From: Heidy Tapia Phone: Admit Date: 05/12/2023 11:14:00 AM Patient Name: Darline Chiang Visit Number: [id number] Discharge Date: 05/23/2023 04:15:00 PM ATTENTION: The Clinical Documentation Specialists (CDI) and [facility] Coding Staff appreciate your assistance in clarifying documentation. Please respond to the clarification below the line at the bottom and electronically sign. The CDI & [facility] Coding staff will review the response and follow-up if needed. Please note: Queries are made part of the Legal Health Record. If you have any questions, please contact the author of this message via ITS. Dr. Declan Orta Your patient is receiving the followinu PRBC on 05/15. Please clarify what condition/diagnosis is being treated. History/Risk Factors: Stable burst fracture of T9-T10 vertebra w hematoma, kyphosis, MEL, Rx and Tx noncompliance, cystitis, HTN, Hx multi falls, s/p Fusion of 2 to 7 Thoracic Vertebral Joints w spinal Se Clinical indicators: Hgb: 05/12 11.5 05/14 9.5 05/15 10.7 Hct: 05/12 36.5 05/15 36.5 127 36.5 Treatment: 1u PRBC post Fusion of 2 to 7 Thoracic Vertebral Joints w spinal Se What diagnosis are you treating with 1u PRBC? [ ] Acute blood loss anemia [ ] Acute on chronic blood loss anemia [ ] Chronic blood loss anemia [ ] Iron deficiency anemia [ ] No additional diagnosis [ + ] Other, please specify___acute postprocedure blood loss anemia, as expected from surgery [ ] Unable to determine (Template Last Reviewed: May 2020) MTDD
== END 2023-05-23 16:15 | DRG 456 ==
LOC: EC 07:04 → 5NMEDONC 11:14 → 2SICU 05-15 18:26 → 4SSUR 05-16 13:55
PROVIDERS: ADMIT Hospitalist; ATTEND Hospitalist
PROC: 0PS404Z Reposition Thoracic Vertebra with Internal Fixation Device, Open Approach (ICD-10-PCS; 2023-05-15)
PROC: XNU4356 Supplement Thoracic Vertebra with Mechanically Expandable (Paired) Synthetic Substitute, Percutaneous Approach, New Technology Group 6 (ICD-10-PCS; 2023-05-15)
PROC: 8E0WXBZ Computer Assisted Procedure of Trunk Region (ICD-10-PCS; 2023-05-15)
PROC: 30233N1 Transfusion of Nonautologous Red Blood Cells into Peripheral Vein, Percutaneous Approach (ICD-10-PCS; 2023-05-15)
PROC: 0RG7071 Fusion of 2 to 7 Thoracic Vertebral Joints with Autologous Tissue Substitute, Posterior Approach, Posterior Column, Open Approach (ICD-10-PCS; principal; 2023-05-15 15:00)
DX: S22.071A Stable burst fracture of T9-T10 vertebra, initial encounter for closed fracture (principal); S24.153A Other incomplete lesion at T7-T10 level of thoracic spinal cord, initial encounter; M40.14 Other secondary kyphosis, thoracic region; E22.2 Syndrome of inappropriate secretion of antidiuretic hormone; F05 Delirium due to known physiological condition; D62 Acute posthemorrhagic anemia; N30.90 Cystitis, unspecified without hematuria; M48.04 Spinal stenosis, thoracic region; I95.9 Hypotension, unspecified; F19.11 Other psychoactive substance abuse, in remission; F31.9 Bipolar disorder, unspecified; E03.9 Hypothyroidism, unspecified; F10.11 Alcohol abuse, in remission; I10 Essential (primary) hypertension; I08.1 Rheumatic disorders of both mitral and tricuspid valves; E87.6 Hypokalemia; T45.516A Underdosing of anticoagulants, initial encounter; M19.90 Unspecified osteoarthritis, unspecified site; R26.9 Unspecified abnormalities of gait and mobility; M54.2 Cervicalgia; R79.89 Other specified abnormal findings of blood chemistry; Z91.199 Patient's noncompliance with other medical treatment and regimen due to unspecified reason; Z98.1 Arthrodesis status; R29.6 Repeated falls; W18.30XA Fall on same level, unspecified, initial encounter; W19.XXXA Unspecified fall, initial encounter; Y92.239 Unspecified place in hospital as the place of occurrence of the external cause; Y92.009 Unspecified place in unspecified non-institutional (private) residence as the place of occurrence of the external cause; Z91.128 Patient's intentional underdosing of medication regimen for other reason; Z79.01 Long term (current) use of anticoagulants; Z91.81 History of falling; Z79.890 Hormone replacement therapy; Z79.899 Other long term (current) drug therapy; Z98.84 Bariatric surgery status; Z87.891 Personal history of nicotine dependence; Z86.711 Personal history of pulmonary embolism; Z82.49 Family history of ischemic heart disease and other diseases of the circulatory system
CPT/HCPCS: 36415; 70450; 71046; 71275; 72100; 72110; 72125; 72128; 72131; 80048; 80053; 81001; 82550; 82805; 83605; 83735; 83880; 83930; 83935; 84132; 84300; 84443; 84484; 85025; 85027; 86850; 86891; 86900; 86901; 86920; 87040; 87077; 87086; 87186; 93005; 93308; 96365; 96375; 96376; 99285

== ENCOUNTER 2023-06-19 11:28 | Inpatient (IN) | payer MEDICARE, BC ==
--- NOTE | 2023-06-19 11:49 | ED ---
General Adult HPI - General Source: patient, RN notes reviewed Limitations: altered mental status <Bobby Hutton - Last Filed: 06/19/23 11:49> - General Source: RN notes reviewed, old records reviewed - History of Present Illness -: days(s) Location: back Radiation: non-radiation Severity scale (1-10): 5 Quality: sharp Consistency: constant Improves with: none Worsens with: none Associated Symptoms: nausea/vomiting, weakness Treatments Prior to Arrival: none <Nando Smith - Last Filed: 06/28/23 19:18> - General Stated complaint: Mental health Time Seen by Provider: 06/19/23 11:37 - History of Present Illness Initial comments: 68-year-old female presents emergency department from [facility] for evaluation. Patient had increasing confusion. Patient did have surgery on his back in the past by Dr. Flores. Patient is unable provide much information at this time as she is very confused. Patient does have paperwork from [facility] stating she was sent over here for confusion and evaluation she has had recent laboratory studies concerning for recurrent urinary tract infections. (Bobby Hutton) This is a 68-year-old female to the ER for evaluation today. She presents today for evaluation of worsening and significant confusion. Persistent confusion here in the emergency department. Patient does have history of recent back surgery. (Nando Smith) - Related Data Home Medications Medication Instructions Recorded Confirmed Cyclobenzaprine [Flexeril] 5 mg PO Q8H PRN 05/12/23 06/19/23 Ergocalciferol [Vitamin D2 (1250 1,250 mcg PO FR 05/12/23 06/19/23 Mcg = 92389 Iu)] Linaclotide [Linzess] 145 mcg PO DAILY PRN 05/12/23 06/19/23 Healthshake 1 dose PO TID@0800,1200,1800 06/19/23 06/19/23 Magnesium Hydroxide [Milk of 2,400 mg PO Q72H PRN 06/19/23 06/19/23 Magnesia] traZODone HCL [Desyrel] 50 mg PO HS 06/19/23 06/19/23 Previous Rx's Medication Instructions Recorded lamoTRIgine [LaMICtal] 200 mg PO BID 30 Days #60 tablet 02/08/18 Acetaminophen Tab [Tylenol] 650 mg PO Q6HR PRN tab 05/23/23 Rivaroxaban [Xarelto] 20 mg PO W/SUPPER tab 05/23/23 Sennosides [Senokot] 8.6 mg PO DAILY tab 05/23/23 Sodium Chloride Tab 1 gm PO BID tab 05/23/23 carvediloL [Coreg] 6.25 mg PO BID-W/MEALS tab 05/23/23 Cephalexin [Keflex] 500 mg PO Q8HR 7 Days #21 cap 06/26/23 HYDROcodone/APAP 5-325MG [[place] 1 each PO Q6HR PRN #12 tab 06/26/23 5-325] LORazepam [Ativan] 0.5 mg PO Q12H PRN #6 tab 06/26/23 Levothyroxine Sodium [Synthroid] 25 mcg PO DAILY@0630 tab 06/26/23 QUEtiapine [SEROquel] 50 mg PO DAILY #0 06/26/23 QUEtiapine [SEROquel] 400 mg PO HS tab 06/26/23 Sennosides/Docusate Sodium [[place] 1 each PO DAILY #20 capsule 06/26/23 Plus 8.6-50 mg Softgel] cefaDROXiL [Duricef] 500 mg PO Q12HR 5 Days #10 cap 06/26/23 Allergies Allergy/AdvReac Type Severity Reaction Status Date / Time No Known Allergies Allergy Verified 06/19/23 12:53 Review of Systems ROS Other: All systems not noted in ROS Statement are negative. <Bobby Hutton - Last Filed: 06/19/23 11:49> ROS Other: All systems not noted in ROS Statement are negative. <Nando Smith - Last Filed: 06/28/23 19:18> ROS Statement: Those systems with pertinent positive or pertinent negative responses have been documented in the HPI. Past Medical History Past Medical History: No Reported History Additional Past Medical History / Comment(s): IRON DEFICIENCY ANEMIA. History of Any Multi-Drug Resistant Organisms: None Reported Past Surgical History: Back Surgery, Bariatric Surgery, Orthopedic Surgery Additional Past Surgical History / Comment(s): right shoulder, left shoulder, gastric bypass Past Anesthesia/Blood Transfusion Reactions: No Reported Reaction Past Psychological History: Anxiety, Bipolar, Depression Smoking Status: Never smoker Past Alcohol Use History: Abuse Additional Past Alcohol Use History / Comment(s): Pt. drank 3 times a week heavily for 10 yrs. and quit 2 yrs. ago. Past Drug Use History: Prescription Drug Abuse - Past Family History Mother Family Medical History: No Reported History Sister(s) Family Medical History: Pulmonary Embolus <AnniBobby Joanne - Last Filed: 06/19/23 11:49> General Exam <AnniBobby Joanne - Last Filed: 06/19/23 11:49> General appearance: alert, in no apparent distress, anxious, in distress Head exam: Present: atraumatic, normocephalic, normal inspection Eye exam: Present: normal appearance, PERRL, EOMI. Absent: scleral icterus, conjunctival injection, periorbital swelling ENT exam: Present: normal exam, mucous membranes moist Neck exam: Present: normal inspection. Absent: tenderness, meningismus, lymphadenopathy Respiratory exam: Present: normal lung sounds bilaterally. Absent: respiratory distress, wheezes, rales, rhonchi, stridor Cardiovascular Exam: Present: regular rate, normal rhythm, normal heart sounds. Absent: systolic murmur, diastolic murmur, rubs, gallop, clicks GI/Abdominal exam: Present: soft, normal bowel sounds. Absent: distended, tenderness, guarding, rebound, rigid Extremities exam: Present: normal inspection, full ROM, normal capillary refill. Absent: tenderness, pedal edema, joint swelling, calf tenderness Back exam: Present: normal inspection Neurological exam: Present: alert, oriented X3, CN II-XII intact Psychiatric exam: Present: normal affect, normal mood Skin exam: Present: warm, dry, intact, normal color. Absent: rash <Nando mSith - Last Filed: 06/28/23 19:18> - General Exam Comments Initial Comments: Visual Physical Exam Vital signs reviewed General: Well-appearing, nontoxic, no acute distress. Head: Normocephalic, atraumatic Eyes: PERRLA, EOMI ENT: Airway patent Chest: Nonlabored breathing Skin: No visual rash, normal skin tone Neuro: Alert and oriented 3 Musculoskeletal: No gross abnormalities (Bobby Hutton) Course <Nando Smith - Last Filed: 03/10/24 19:18> Vital Signs 06/19/23 06/19/23 06/19/23 12:12 12:37 14:34 Temperature 98.7 F Pulse Rate 55 L 94 92 Pulse Rate [ Pulse Oximetery ] Respiratory 22 17 18 Rate Blood Pressure 83/35 152/96 116/92 Blood Pressure [Left Arm] O2 Sat by Pulse 96 98 100 Oximetry 06/19/23 06/19/23 06/19/23 14:38 15:29 16:57 Temperature Pulse Rate 96 77 Pulse Rate [ Pulse Oximetery ] Respiratory 18 18 18 Rate Blood Pressure 165/84 136/67 Blood Pressure [Left Arm] O2 Sat by Pulse 96 98 Oximetry 06/19/23 06/19/23 06/19/23 18:43 19:45 20:30 Temperature Pulse Rate 100 101 H 105 H Pulse Rate [ Pulse Oximetery ] Respiratory 20 17 20 Rate Blood Pressure 158/105 163/97 Blood Pressure [Left Arm] O2 Sat by Pulse 95 94 L 94 L Oximetry 06/19/23 06/20/23 06/20/23 22:30 00:00 01:00 Temperature Pulse Rate 93 82 90 Pulse Rate [ Pulse Oximetery ] Respiratory 18 20 19 Rate Blood Pressure Blood Pressure [Left Arm] O2 Sat by Pulse 96 97 98 Oximetry 06/20/23 06/20/23 06/20/23 02:16 02:30 04:40 Temperature Pulse Rate 80 83 70 Pulse Rate [ Pulse Oximetery ] Respiratory 18 16 18 Rate Blood Pressure 121/94 121/94 149/94 Blood Pressure [Left Arm] O2 Sat by Pulse 97 97 95 Oximetry 06/20/23 06/20/23 06/20/23 06:04 09:16 11:06 Temperature 97.4 F L 98.1 F 98.2 F Pulse Rate 82 84 73 Pulse Rate [ Pulse Oximetery ] Respiratory 17 22 20 Rate Blood Pressure 151/87 127/77 127/77 Blood Pressure [Left Arm] O2 Sat by Pulse 95 95 96 Oximetry 06/20/23 06/20/23 13:00 13:10 Temperature 98.1 F Pulse Rate 80 Pulse Rate [ 84 Pulse Oximetery ] Respiratory 18 22 Rate Blood Pressure Blood Pressure 158/90 [Left Arm] O2 Sat by Pulse 95 99 Oximetry - Reevaluation(s) Reevaluation #1: 06/19/23 14:26 Medical record is reviewed (Nando Smith) Reevaluation #2: 06/19/23 14:26 Patient symptoms unchanged (Nando Smith) Reevaluation #3: 06/19/23 14:26 Patient informed of results and questions answered (Nando Smith) Reevaluation #4: Was pt. sent in by a medical professional or institution (, ZUNILDA, TELEVISION AND RADIO REPAIRER, urgent care, hospital, or detention...) When possible be specific @ -no Did you speak to anyone other than the patient for history (EMS, parent, family, police, friend...)? What history was obtained from this source @ -no Did you review nursing and triage notes (agree or disagree)? Why? @ -agree Are old charts reviewed (outside hosp., previous admission, EMS record, old EKG, old radiological studies, urgent care reports/EKG's, detention records)? Report findings @ -yes Differential Diagnosis (chest pain, altered mental status, abdominal pain women, abdominal pain men, vaginal bleeding, weakness, fever, dyspnea, syncope, headache, dizziness, GI bleed, back pain, seizure, CVA, palpatations, mental health, musculoskeletal)? @ -prior EKG interpreted by me (3pts min.). @ -yes X-rays interpreted by me (1pt min.). @ -yes negative for acute disease CT interpreted by me (1pt min.). @ -Yes negative for acute disease U/S interpreted by me (1pt. min.). @ -no What testing was considered but not performed or refused? (CT, X-rays, U/S, labs)? Why? @ -none What meds were considered but not given or refused? Why? @ -none Did you discuss the management of the patient with other professionals (g[employer] i.e. ZUNILDA Lawler, TELEVISION AND RADIO REPAIRER, lab, RT, psych nurse, social insurance administrator, agency sales director, teacher, special loan officer, manager of case)? Give summary @ -no Was smoking cessation discussed for >3mins.? @ -no Was critical care preformed (if so, how long)? @ -no Were there social determinants of health that impacted care today? How? (Homelessness, low income, unemployed, alcoholism, drug addiction, transportation, low edu. Level, literacy, decrease access to med. care, group home, rehab)? @ -none Was there de-escalation of care discussed even if they declined (Discuss DNR or withdrawal of care, Hospice)? DNR status @ -no What co-morbidities impacted this encounter? (DM, HTN, Smoking, COPD, CAD, Cancer, CVA, ARF, Chemo, Hep., AIDS, mental health diagnosis, sleep apnea, morbid obesity)? @ -none Was patient admitted / discharged? Hospital course, mention meds given and route, prescriptions, significant lab abnormalities, going to OR and other pertinent info. @ - 68 female to ER for evaluation patient be admitted for delirium and weakness, altered mental status. Patient will be admitted for further evaluation and monitoring Admitted Undiagnosed new problem with uncertain prognosis? @ -no Drug Therapy requiring intensive monitoring for toxicity (Heparin, Nitro, Insulin, Cardizem)? @ -no Were any procedures done? @ -no Diagnosis/symptom? @ -Altered mental status and weakness Acute, or Chronic, or Acute on Chronic? @ -Acute Uncomplicated (without systemic symptoms) or Complicated (systemic symptoms)? @ -Complicated Side effects of treatment? @ -no Exacerbation, Progression, or Severe Exacerbation? @ -exacerbation Poses a threat to life or bodily function? How? (Chest pain, [place], [place], pneumonia, PE, COPD, DKA, ARF, appy, cholecystitis, CVA, Diverticulitis, Homicidal, Suicidal, threat to staff... and all critical care pts) @ -yes extremes of age (Nando Smith) Reevaluation #5: Differential Altered Mental Status: Hypoglycemia, DKA, hypercapnia, ETOH, overdose, CO poisoning, trauma, myxedema coma, HTN encephalopathy, infection, encephalitis, psychosis, intercranial hemorrhage, hepatic encephalopathy, meningitis, CVA, this is not meant to be an all-inclusive list (Nando Smith) EKG Findings - EKG Comments: EKG Findings:: EKG is sinus T 91 QRS 114 QTc 391 - EKG Results: EKG: interpreted by ERMD <Nando Smith - Last Filed: 06/28/23 19:18> Medical Decision Making <Bobby Hutton - Last Filed: 06/19/23 11:49> - Lab Data Result diagrams: 06/26/23 10:17 06/26/23 10:17 - EKG Data -: EKG Interpreted by Me - Radiology Data Radiology results: report reviewed (CT brain is negative for acute disease chest x-ray is negative for acute disease), image reviewed <Nando Smith - Last Filed: 06/28/23 19:18> - Medical Decision Making I completed the quick note portion of this chart signed Bobby Hutton PA-C (Bobby uHtton) 68 female to ER for evaluation patient be admitted for delirium and weakness, altered mental status. Patient will be admitted for further evaluation and monitoring (Nando Smith) - Lab Data Lab Results 06/19/23 06/19/23 06/19/23 Range/Units 14:01 14:01 14:01 WBC (3.8-10.6) k/uL RBC (3.80-5.40) m/uL Hgb (11.4-16.0) gm/dL Hct (34.0-46.0) % MCV (80.0-100.0) fL MCH (25.0-35.0) pg MCHC (31.0-37.0) g/dL RDW (11.5-15.5) % Plt Count (150-450) k/uL MPV Neutrophils % % Lymphocytes % % Monocytes % % Eosinophils % % Basophils % % Neutrophils # (1.3-7.7) k/uL Lymphocytes # (1.0-4.8) k/uL Monocytes # (0-1.0) k/uL Eosinophils # (0-0.7) k/uL Basophils # (0-0.2) k/uL Hypochromasia PT 13.3 H (10.0-12.5) sec INR 1.3 H (<1.2) APTT 30.8 H (22.0-30.0) sec Sodium 134 L (137-145) mmol/L Potassium 4.0 (3.5-5.1) mmol/L Chloride 106 (98-107) mmol/L Carbon Dioxide 23 (22-30) mmol/L Anion Gap 5 mmol/L BUN 12 (7-17) mg/dL Creatinine 0.28 L (0.52-1.04) mg/dL Est GFR (CKD-EPI)AfAm >90 (>60 ml/min/1.73 sqM) Est GFR (CKD-EPI)NonAf >90 (>60 ml/min/1.73 sqM) Glucose 96 (74-99) mg/dL POC Glucose (mg/dL) (70-110) mg/dL POC Glu Home Care Coordinator ID Calcium 9.2 (8.4-10.2) mg/dL Total Bilirubin 0.7 (0.2-1.3) mg/dL AST 29 (14-36) U/L ALT 21 (4-34) U/L Alkaline Phosphatase 278 H (38-126) U/L Ammonia (<30) umol/L Troponin I (0.000-0.034) ng/mL C-Reactive Protein (<1.0) mg/dL Total Protein 5.5 L (6.3-8.2) g/dL Albumin 2.8 L (3.5-5.0) g/dL Procalcitonin (0.02-0.09) ng/mL Urine Color Yellow Urine Appearance Cloudy H (Clear) Urine pH 6.5 (5.0-8.0) Ur Specific [place] 1.022 (1.001-1.035) Urine Protein 1+ H (Negative) Urine Glucose (UA) Negative (Negative) Urine Ketones Negative (Negative) Urine Blood Negative (Negative) Urine Nitrite Negative (Negative) Urine Bilirubin Negative (Negative) Urine Urobilinogen 2.0 (<2.0) mg/dL Ur Leukocyte Esterase Trace H (Negative) Urine RBC 7 H (0-5) /hpf Urine WBC 9 H (0-5) /hpf Ur Squamous Epith Cells 4 (0-4) /hpf Hyaline Casts 4 H (0-2) /lpf Urine Mucus Many H (None) /hpf Ur Yeast w Hyphae Rare (None) /hpf Urine Opiates Screen Detected H (NotDetected) Ur Oxycodone Screen Detected H (NotDetected) Urine Methadone Screen Not Detected (NotDetected) Ur Barbiturates Screen Not Detected (NotDetected) U Tricyclic Antidepress Detected H (NotDetected) Ur Phencyclidine Scrn Not Detected (NotDetected) Ur Amphetamines Screen Not Detected (NotDetected) U Methamphetamines Scrn Not Detected (NotDetected) U Benzodiazepines Scrn Detected H (NotDetected) Urine Cocaine Screen Not Detected (NotDetected) U Marijuana (THC) Screen Not Detected (NotDetected) Serum Alcohol <10 mg/dL 06/19/23 06/19/23 06/19/23 Range/Units 14:01 14:01 14:01 WBC (3.8-10.6) k/uL RBC (3.80-5.40) m/uL Hgb (11.4-16.0) gm/dL Hct (34.0-46.0) % MCV (80.0-100.0) fL MCH (25.0-35.0) pg MCHC (31.0-37.0) g/dL RDW (11.5-15.5) % Plt Count (150-450) k/uL MPV Neutrophils % % Lymphocytes % % Monocytes % % Eosinophils % % Basophils % % Neutrophils # (1.3-7.7) k/uL Lymphocytes # (1.0-4.8) k/uL Monocytes # (0-1.0) k/uL Eosinophils # (0-0.7) k/uL Basophils # (0-0.2) k/uL Hypochromasia PT (10.0-12.5) sec INR (<1.2) APTT (22.0-30.0) sec Sodium (137-145) mmol/L Potassium (3.5-5.1) mmol/L Chloride (98-107) mmol/L Carbon Dioxide (22-30) mmol/L Anion Gap mmol/L BUN (7-17) mg/dL Creatinine (0.52-1.04) mg/dL Est GFR (CKD-EPI)AfAm (>60 ml/min/1.73 sqM) Est GFR (CKD-EPI)NonAf (>60 ml/min/1.73 sqM) Glucose (74-99) mg/dL POC Glucose (mg/dL) (70-110) mg/dL POC Glu Home Care Coordinator ID Calcium (8.4-10.2) mg/dL Total Bilirubin (0.2-1.3) mg/dL AST (14-36) U/L ALT (4-34) U/L Alkaline Phosphatase (38-126) U/L Ammonia <9 (<30) umol/L Troponin I (0.000-0.034) ng/mL C-Reactive Protein 19.5 H (<1.0) mg/dL Total Protein (6.3-8.2) g/dL Albumin (3.5-5.0) g/dL Procalcitonin 0.56 H (0.02-0.09) ng/mL Urine Color Urine Appearance (Clear) Urine pH (5.0-8.0) Ur Specific [place] (1.001-1.035) Urine Protein (Negative) Urine Glucose (UA) (Negative) Urine Ketones (Negative) Urine Blood (Negative) Urine Nitrite (Negative) Urine Bilirubin (Negative) Urine Urobilinogen (<2.0) mg/dL Ur Leukocyte Esterase (Negative) Urine RBC (0-5) /hpf Urine WBC (0-5) /hpf Ur Squamous Epith Cells (0-4) /hpf Hyaline Casts (0-2) /lpf Urine Mucus (None) /hpf Ur Yeast w Hyphae (None) /hpf Urine Opiates Screen (NotDetected) Ur Oxycodone Screen (NotDetected) Urine Methadone Screen (NotDetected) Ur Barbiturates Screen (NotDetected) U Tricyclic Antidepress (NotDetected) Ur Phencyclidine Scrn (NotDetected) Ur Amphetamines Screen (NotDetected) U Methamphetamines Scrn (NotDetected) U Benzodiazepines Scrn (NotDetected) Urine Cocaine Screen (NotDetected) U Marijuana (THC) Screen (NotDetected) Serum Alcohol mg/dL 06/19/23 06/19/23 06/19/23 Range/Units 14:40 14:40 15:24 WBC 10.3 (3.8-10.6) k/uL RBC 3.30 L (3.80-5.40) m/uL Hgb 9.8 L (11.4-16.0) gm/dL Hct 31.9 L (34.0-46.0) % MCV 96.6 D (80.0-100.0) fL MCH 29.8 (25.0-35.0) pg MCHC 30.8 L (31.0-37.0) g/dL RDW 15.7 H (11.5-15.5) % Plt Count 351 (150-450) k/uL MPV 8.1 Neutrophils % 85 % Lymphocytes % 6 % Monocytes % 7 % Eosinophils % 1 % Basophils % 0 % Neutrophils # 8.7 H (1.3-7.7) k/uL Lymphocytes # 0.6 L (1.0-4.8) k/uL Monocytes # 0.7 (0-1.0) k/uL Eosinophils # 0.1 (0-0.7) k/uL Basophils # 0.0 (0-0.2) k/uL Hypochromasia Moderate PT (10.0-12.5) sec INR (<1.2) APTT (22.0-30.0) sec Sodium (137-145) mmol/L Potassium (3.5-5.1) mmol/L Chloride (98-107) mmol/L Carbon Dioxide (22-30) mmol/L Anion Gap mmol/L BUN (7-17) mg/dL Creatinine (0.52-1.04) mg/dL Est GFR (CKD-EPI)AfAm (>60 ml/min/1.73 sqM) Est GFR (CKD-EPI)NonAf (>60 ml/min/1.73 sqM) Glucose (74-99) mg/dL POC Glucose (mg/dL) 98 (70-110) mg/dL POC Glu Home Care Coordinator ID Janessa Serrato Calcium (8.4-10.2) mg/dL Total Bilirubin (0.2-1.3) mg/dL AST (14-36) U/L ALT (4-34) U/L Alkaline Phosphatase (38-126) U/L Ammonia (<30) umol/L Troponin I 0.035 H* (0.000-0.034) ng/mL C-Reactive Protein (<1.0) mg/dL Total Protein (6.3-8.2) g/dL Albumin (3.5-5.0) g/dL Procalcitonin (0.02-0.09) ng/mL Urine Color Urine Appearance (Clear) Urine pH (5.0-8.0) Ur Specific [place] (1.001-1.035) Urine Protein (Negative) Urine Glucose (UA) (Negative) Urine Ketones (Negative) Urine Blood (Negative) Urine Nitrite (Negative) Urine Bilirubin (Negative) Urine Urobilinogen (<2.0) mg/dL Ur Leukocyte Esterase (Negative) Urine RBC (0-5) /hpf Urine WBC (0-5) /hpf Ur Squamous Epith Cells (0-4) /hpf Hyaline Casts (0-2) /lpf Urine Mucus (None) /hpf Ur Yeast w Hyphae (None) /hpf Urine Opiates Screen (NotDetected) Ur Oxycodone Screen (NotDetected) Urine Methadone Screen (NotDetected) Ur Barbiturates Screen (NotDetected) U Tricyclic Antidepress (NotDetected) Ur Phencyclidine Scrn (NotDetected) Ur Amphetamines Screen (NotDetected) U Methamphetamines Scrn (NotDetected) U Benzodiazepines Scrn (NotDetected) Urine Cocaine Screen (NotDetected) U Marijuana (THC) Screen (NotDetected) Serum Alcohol mg/dL Disposition <Bobby Hutton - Last Filed: 06/19/23 11:49> Is patient prescribed a controlled substance at d/c from ED?: No Time of Disposition: 15:55 <Nando Smith - Last Filed: 06/28/23 19:18> Clinical Impression: Delirium due to general medical condition, Drug overdose, Weakness, Altered mental status Disposition: ADMITTED IP TO THIS HOSP
[2023-06-19 14:10] LABS: Appearance,Urine Cloudy (Clear); Bilirubin,Urine Negative (Negative); Blood,Urine Negative (Negative); Color,Urine Yellow; Glucose,Urine (UA) Negative (Negative); Hyaline Casts,Urine 4 /lpf (0-2); Hyphae Yeast, Urine Rare /hpf; Ketones,Urine Negative (Negative); Leukocyte Esterase,Urine Trace (Negative); Mucus,Urine Many /hpf; Nitrite,Urine Negative (Negative); PH, Urine 6.5 (5.0-8.0); Protein,Urine 1+ (Negative); RBC,Urine 7 /hpf (0-5); Specific Gravity,Urine 1.022 (1.001-1.035); Squamous Epithelial Cell,Urine 4 /hpf (0-4); WBC,Urine 9 /hpf (0-5)
[2023-06-19 14:15] LABS: INR 1.3 (<1.2); Partial Thromboplastin Time 30.8 sec (22.0-30.0); Prothrombin Time 13.3 sec (10.0-12.5)
[2023-06-19 14:17] LABS: ALT 21 U/L (4-34); AST 29 U/L (14-36); African American GFR (CKD) >90 (>60 ml/min/1.73 sqM); Albumin 2.8 g/dL (3.5-5.0); Alcohol <10 mg/dL; Alkaline Phosphatase 278 U/L (38-126); Anion Gap 5 mmol/L; Blood Urea Nitrogen 12 mg/dL (7-17); Calcium 9.2 mg/dL (8.4-10.2); Carbon Dioxide 23 mmol/L (22-30); Chloride 106 mmol/L (98-107); Glucose 96 mg/dL (74-99); Non-African American GFR(CKD) >90 (>60 ml/min/1.73 sqM); Sodium 134 mmol/L (137-145); Total Bilirubin 0.7 mg/dL (0.2-1.3); Total Protein 5.5 g/dL (6.3-8.2)
[2023-06-19 14:19] LABS: Amphetamine Screen,Urine Not Detected (NotDetected); Barbiturate Screen,Urine Not Detected (NotDetected); Benzodiazepines Screen,Urine Detected (NotDetected); Cocaine Screen,Urine Not Detected (NotDetected); Methadone Screen, Urine Not Detected (NotDetected); Opiate Screen,Urine Detected (NotDetected); Oxycodone Screen, Urine Detected (NotDetected); Phencyclidine Screen,Urine Not Detected (NotDetected); Tricyclic Antidepressant,Urine Detected (NotDetected); Urn Cannabinoid Scrn Not Detected (NotDetected)
[2023-06-19] MEDS: SODIUM CHLORIDE 0.9% 1,000 ML IV ONE (14:30)
[2023-06-19] MEDS: SODIUM CHLORIDE 0.9% 1,000 ML IV STA (14:30)
[2023-06-19] MEDS: NALOXONE 0.4 MG/ML 1 ML VIAL IVP STA (14:38)
[2023-06-19 14:45] LABS: Basophils % (A) 0 %; Eosinophils # (A) 0.1 k/uL (0-0.7); Eosinophils % (A) 1 %; HCT 31.9 % (34.0-46.0); HGB 9.8 gm/dL (11.4-16.0); Hypochromasia Moderate; Lymphocytes # (A) 0.6 k/uL (1.0-4.8); Lymphocytes % (A) 6 %; MCH 29.8 pg (25.0-35.0); MCHC 30.8 g/dL (31.0-37.0); Mean Platelet Volume 8.1; Monocytes # (A) 0.7 k/uL (0-1.0); Monocytes % (A) 7 %; Neutrophils # (A) 8.7 k/uL (1.3-7.7); Neutrophils % (A) 85 %; Platelet Count 351 k/uL (150-450); RDW 15.7 % (11.5-15.5); WBC 10.3 k/uL (3.8-10.6)
--- NOTE | 2023-06-19 14:56 | XR ---
EXAMINATION TYPE: XR chest 1V portable DATE OF EXAM: 06/19/2023 2:37 PM CLINICAL INDICATION:Female, 68 years old with history of altered mental status; COMPARISON: Chest radiographs from 05/12/2023 TECHNIQUE: XR chest 1V portable Frontal view of the chest. FINDINGS: Lungs/Pleura: There is no evidence of pleural effusion, focal consolidation, or pneumothorax. Right upper lung skinfold suggested. Pulmonary vascularity: Unremarkable. Heart/mediastinum: Cardiomediastinal silhouette is unremarkable. Musculoskeletal: No acute osseous pathology. Extensive postsurgical changes to the spine. Other findings: None Lines/Tubes: IMPRESSION: No evidence for acute airspace disease.
[2023-06-19 15:00] LABS: MCV 96.6 fL (80.0-100.0)
--- NOTE | 2023-06-19 15:23 | CT ---
EXAMINATION TYPE: CT brain wo con DATE OF EXAM: 06/19/2023 COMPARISON: 05/13/2023 HISTORY: 68-year-old female confusion, ams TECHNIQUE: Examination was done in axial plane without intravenous contrast. Coronal and sagittal r econstructions performed. CT DLP: 1212.4 mGycm Automated exposure control for dose reduction was used. FINDINGS: Unable to exclude new hypodensity within the right cerebellar hemisphere. Skull base artifacts limits the evaluation. Asymmetrically smaller right lateral ventricle is unchanged and is likely a congenital finding. Mild bilateral cerebral cortical loss. Mild periventricular white matter hypodensities are unchanged. Some subinsular white matter hypodensity on the left is unchanged as well. Otherwise, no additional findings of acute intracranial hemorrhage, acute ischemic change, mass, mass effect, midline shift, or extra-axial fluid collection. No hydrocephalus. No effacement of cerebral sulci and basal subarachnoid cisterns. Remaining jaramillo-white matter differentiation is maintained. Leftward nasal septal deviation. Paranasal sinuses and mastoid air cells well pneumatized. Orbits and globes are intact. IMPRESSION: 1. Either new hypodensity right cerebellar hemisphere versus skull base beam hardening artifact. Marina elate for potential signs/symptoms of an evolving right cerebellar hemisphere infarct. MRI as clinica lly indicated. 2. Otherwise, similar mild generalized atrophy and mild burden of chronic small vessel ischemic disea se. No acute intracranial hemorrhage or midline shift.
[2023-06-19 15:30] LABS: Glucose,Whole Blood 98 mg/dL (70-110)
[2023-06-19] MEDS ORDERED: NALOXONE 0.4 MG/ML 1 ML VIAL IV PRN (15:56)
[2023-06-19] MEDS: HYDROmorphone 0.5 MG/0.5 ML SYRINGE IVP STA (16:04)
[2023-06-19] MEDS: diphenhydrAMINE 50 MG/ML 1 ML VIAL IVP STA (16:06)
[2023-06-19] MEDS: LORazepam 2 MG/ML INJ IV STA (16:10)
[2023-06-19] MEDS: SODIUM CHLORIDE 0.9% 1,000 ML IV SCH (16:16)
[2023-06-19] MEDS ORDERED: VANCOMYCIN IV PER PHARMACY 1 EACH MISC MISCELLANE PRN (17:23)
[2023-06-19] MEDS: HALOPERIDOL LACTATE 5 MG/ML 1 ML VIAL IVP STA (18:44)
[2023-06-19] MEDS: CEFEPIME 2 GM in SODIUM CHLORIDE 0.9% 100 ML IVPB SCH (18:44)
[2023-06-19] MEDS: HYDROmorphone 0.5 MG/0.5 ML SYRINGE IVP PRN (19:51)
[2023-06-19] MEDS ORDERED: oxyCODONE-APAP 10-325MG 1 EACH TAB PO PRN (20:57)
[2023-06-19] MEDS ORDERED: NON FORMULARY DRUG (Linaclotide [Linzess] 145 MCG Capsule) PO PRN (20:57)
--- NOTE | 2023-06-19 21:17 | P.HPIM ---
History of Present Illness H&P Date: 06/19/23 Chief Complaint: Increasing confusion This is a pleasant 68-year-old patient, follows with Dr. Malik Beyer. Patient on 03/31/2023 underwent lower back surgery by Dr. Flores. Rather extensive surgery. Following that patient was discharged to [facility] for rehab. Patient then readmitted from April 13 through April 17. Was found to have pulmonary embolism. discharged to [facility]. Readmitted May 13 been having falls. Some low back pain. This morning patient was on the toilet and she fell down hitting the head. Did not pass out. Cervical collar was placed. CT scans of brain unremarkable. She been having some weakness of the lower extremity. Apparently at home the dog ran into her and she had fallen on her left side. She is also having trouble getting out of bed. Has been using a walker. No change in bowel or urine pattern. No fever or chills. Orthopedics/Dr. Flores was consulted Per son Jeronimo: Patient had stopped taking her Xarelto since she left [facility]. She has signed herself out AMA within 24 hours. Left AMA. Patient was resumed on Xarelto chest CT was negative for PE. Patient subseque ntly discharged to rehab on May 23.. Patient now presents with increasing confusion. Rather delirious. Cannot really pin down the history. No fever reported. Patient has some low back pain. Review of systems: Unable to obtain as patient is somewhat delirious Past medical history to include: Iron deficiency anemia, gastric bypass, bipolar disorder, osteoarthritis, constipation possibly from narcotics. Lower back pain with surgery Social history: Prior history of prescription drug abuse. Qpyn. Has been clean since 2014. Son lives at home with her. Currently at rehab at [facility] Physical examination: VITAL SIGNS: 98.7, 92, 18, 1 one 6 x 92, 100% room air GENERAL: Somewhat lethargic and restless in bed. Moving about. EYES: Pupils equal. Conjunctiva normal. HEENT: External appearance of nose and ears normal, oral cavity grossly normal. NECK: JVD not raised HEART: First and second heart sounds are normal; no edema. LUNGS: Respiratory rate normal; clear to auscultation. ABDOMEN: Soft, nontender, liver spleen not palpable, no masses palpable. PSYCH: Difficult to assess as patient is somewhat delirious MUSCULOSKELETAL:No Clubbing/cyanosis;muscles-grossly intact. OA. NEUROLOGICAL: Cranial nerves grossly intact. 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 Able to move both the lower extremity. INVESTIGATIONS, reviewed in the clinical context: June 19, 2023: Weight Silver 10.3 hemoglobin 9.8 platelets 351 sodium 134 potassium 4 creatinine 0.28 Troponin I 0.035 Urine drug screen positive for opiates, oxycodone, tricyclic antidepressant, benzodiazepines Assessment and plan: -Patient presents altered mental status. Appears to be delirium. No obvious evidence of infection. Will cut back patient [place] to 5. Add morning Seroquel 50 mg. Other medications to continue. Prescribed medications as per Dr. Winn upon last discharge. - lumbar surgery in March with Dr. Flores. -Essential hypertension, Cut back Coreg 3.125 mg twice daily - vertebral body compression fracture which is reported to be new from March 31. Patient had a fall 2 weeks ago when her dog and ran into her at home. Open treatment of T9 fracture with reduction. T6-T10 instrumented post lateral fusion. With stabilization. Decompressive laminectomy. Etc. with Dr. Flores May 16, [address] Flores -Questionable infection at surgical site Consult ID. Consult Dr. Flores -Chronic pulmonary embolism. March 2023 Xarelto - gait dysfunction following surgery. rehab Does use a walker -Bipolar disorder: Previously seen by Dr. Winn from psychiatry: Seroquel to 400 mg nightly. 50 mg of Seroquel in the morning.. -Hypothyroid Synthroid 88 g a day -Full code Will adjust medications as per Dr. Winn from last admission. ID and Ortho cons ulted. Also psychiatry for overview. Past Medical History Past Medical History: No Reported History Additional Past Medical History / Comment(s): IRON DEFICIENCY ANEMIA. History of Any Multi-Drug Resistant Organisms: None Reported Past Surgical History: Back Surgery, Bariatric Surgery, Orthopedic Surgery Additional Past Surgical History / Comment(s): right shoulder, left shoulder, gastric bypass Past Anesthesia/Blood Transfusion Reactions: No Reported Reaction Past Psychological History: Anxiety, Bipolar, Depression Smoking Status: Never smoker Past Alcohol Use History: Abuse Past Drug Use History: Prescription Drug Abuse - Past Family History Mother Family Medical History: No Reported History Sister(s) Family Medical History: Pulmonary Embolus Medications and Allergies Home Medications Medication Instructions Recorded Confirmed Type lamoTRIgine [LaMICtal] 200 mg PO BID 30 Days #60 tablet 02/08/18 06/19/23 Rx Levothyroxine Sodium [Synthroid] 88 mcg PO HS 03/30/23 06/19/23 History QUEtiapine FUMARATE [SEROquel] 300 mg PO HS 04/12/23 06/19/23 History Cyclobenzaprine [Flexeril] 5 mg PO Q8H PRN 05/12/23 06/19/23 History Ergocalciferol [Vitamin D2 (1250 1,250 mcg PO FR 05/12/23 06/19/23 History Mcg = 83245 Iu)] Linaclotide [Linzess] 145 mcg PO DAILY PRN 05/12/23 06/19/23 History Acetaminophen Tab [Tylenol] 650 mg PO Q6HR PRN tab 05/23/23 06/19/23 Rx Rivaroxaban [Xarelto] 20 mg PO W/SUPPER tab 05/23/23 06/19/23 Rx Sennosides [Senokot] 8.6 mg PO DAILY tab 05/23/23 06/19/23 Rx Sodium Chloride Tab 1 gm PO BID tab 05/23/23 06/19/23 Rx carvediloL [Coreg] 6.25 mg PO BID-W/MEALS tab 05/23/23 06/19/23 Rx Healthshake 1 dose PO TID@0800,1200,1800 06/19/23 06/19/23 History LORazepam [Ativan] 0.5 mg PO Q12H PRN 06/19/23 06/19/23 History Magnesium Hydroxide [Milk of 2,400 mg PO Q72H PRN 06/19/23 06/19/23 History Magnesia] QUEtiapine [SEROquel] 50 mg PO DAILY@1600 06/19/23 06/19/23 History cefaDROXiL [Duricef] 500 mg PO BID@0800,1600 06/19/23 06/19/23 History oxyCODONE HCL/ACETAMINOPHEN 1 tab PO Q6HR PRN 06/19/23 06/19/23 History [Percocet 10-325 mg] traZODone HCL [Desyrel] 50 mg PO HS 06/19/23 06/19/23 History Allergies Allergy/AdvReac Type Severity Reaction Status Date / Time No Known Allergies Allergy Verified 06/19/23 12:53 Physical Exam Vitals: Vital Signs Temp Pulse Resp BP Pulse Ox 06/19/23 19:45 101 H 17 158/105 94 L 06/19/23 18:43 100 20 95 06/19/23 16:57 77 18 136/67 98 06/19/23 15:29 96 18 165/84 96 06/19/23 14:38 18 06/19/23 14:34 92 18 116/92 100 06/19/23 12:37 94 17 152/96 98 06/19/23 12:12 98.7 F 55 L 22 83/35 96 Intake and Output 06/19/23 06/19/23 06/19/23 06:59 14:59 22:59 Other: Weight 79.379 kg Results CBC & Chem 7: 06/19/23 14:40 06/19/23 14:01 Labs: Abnormal Lab Results - Last 24 Hours (Table) 06/19/23 06/19/23 06/19/23 Range/Units 14:01 14:01 14:01 RBC (3.80-5.40) m/uL Hgb (11.4-16.0) gm/dL Hct (34.0-46.0) % MCHC (31.0-37.0) g/dL RDW (11.5-15.5) % Neutrophils # (1.3-7.7) k/uL Lymphocytes # (1.0-4.8) k/uL PT 13.3 H (10.0-12.5) sec INR 1.3 H (<1.2) APTT 30.8 H (22.0-30.0) sec Sodium 134 L (137-145) mmol/L Creatinine 0.28 L (0.52-1.04) mg/dL Alkaline Phosphatase 278 H (38-126) U/L Troponin I (0.000-0.034) ng/mL C-Reactive Protein (<1.0) mg/dL Total Protein 5.5 L (6.3-8.2) g/dL Albumin 2.8 L (3.5-5.0) g/dL Urine Appearance Cloudy H (Clear) Urine Protein 1+ H (Negative) Ur Leukocyte Esterase Trace H (Negative) Urine RBC 7 H (0-5) /hpf Urine WBC 9 H (0-5) /hpf Hyaline Casts 4 H (0-2) /lpf Urine Mucus Many H (None) /hpf Urine Opiates Screen Detected H (NotDetected) Ur Oxycodone Screen Detected H (NotDetected) U Tricyclic Antidepress Detected H (NotDetected) U Benzodiazepines Scrn Detected H (NotDetected) 06/19/23 06/19/23 06/19/23 Range/Units 14:01 14:40 14:40 RBC 3.30 L (3.80-5.40) m/uL Hgb 9.8 L (11.4-16.0) gm/dL Hct 31.9 L (34.0-46.0) % MCHC 30.8 L (31.0-37.0) g/dL RDW 15.7 H (11.5-15.5) % Neutrophils # 8.7 H (1.3-7.7) k/uL Lymphocytes # 0.6 L (1.0-4.8) k/uL PT (10.0-12.5) sec INR (<1.2) APTT (22.0-30.0) sec Sodium (137-145) mmol/L Creatinine (0.52-1.04) mg/dL Alkaline Phosphatase (38-126) U/L Troponin I 0.035 H* (0.000-0.034) ng/mL C-Reactive Protein 19.5 H (<1.0) mg/dL Total Protein (6.3-8.2) g/dL Albumin (3.5-5.0) g/dL Urine Appearance (Clear) Urine Protein (Negative) Ur Leukocyte Esterase (Negative) Urine RBC (0-5) /hpf Urine WBC (0-5) /hpf Hyaline Casts (0-2) /lpf Urine Mucus (None) /hpf Urine Opiates Screen (NotDetected) Ur Oxycodone Screen (NotDetected) U Tricyclic Antidepress (NotDetected) U Benzodiazepines Scrn (NotDetected)
[2023-06-19] MEDS: QUEtiapine 100 MG TAB PO SCH ×2 (21:26→22:34)
[2023-06-19] MEDS: traZODone HCL 50 MG TAB PO SCH (21:27)
[2023-06-19] MEDS: carvediloL 3.125 MG TAB PO SCH (21:27)
[2023-06-19] MEDS: lamoTRIgine 100 MG TAB PO SCH (21:27)
[2023-06-19] MEDS: RIVAROXABAN 20 MG TAB PO SCH (21:28)
[2023-06-19] MEDS: LEVOTHYROXINE 88 MCG TAB PO SCH (21:28)
[2023-06-19] MEDS: VANCOMYCIN 1,500 MG in SODIUM CHLORIDE 0.9% 500 ML 500 ML IVPB SCH (22:29)
[2023-06-19] MEDS: carvediloL 6.25 MG TAB PO SCH (22:35)
[2023-06-20] MEDS: SODIUM CHLORIDE TAB 1 GM TAB PO SCH (00:46)
[2023-06-20] MEDS: LORazepam 0.5 MG TAB PO PRN (01:29)
[2023-06-20] MEDS: HYDROcodone/APAP 5-325MG 1 EACH TAB PO PRN (07:00)
[2023-06-20] MEDS ORDERED: NON FORMULARY DRUG (Healthshake 1 DOSE) PO SCH (08:00)
--- NOTE | 2023-06-20 08:32 | P.CONS ---
History of Present Illness - Reason for Consult Consult date: 06/19/23 - History of Present Illness Patient is a 68-year-old female who recently did have T9 burst fracture and the patient is status post open treatment of T9 fracture with reduction T6-T10 instrumental posterior lateral fusion T6-T10 stabilization, T8- T10 bilateral decompressive laminectomy partial medial facetectomy and foraminotomy, the patient was subsequently stabilized and has been discharged to the local longterm for rehabilitation patient has been brought back to [facility] ER for evaluation of increasing confusion apparently symptom has been going on for a day or 2 before the patient was sent to the ER in the longterm was concern for urinary tract infection as the patient did have history of recurrent UTI patient on presentation to the hospital was afebrile and no fever have recorded subsequently patient was not tachycardic hypotensive or hypoxic did have a white count of 10.3 with a left shift creatinine has been normal liver isms are normal urine is mildly positive urine testing was positive for opiates and tricyclic's and benzos and oxycodone patient did have a chest x- ray no evidence of effusion, focal consolidation or pneumothorax patient has been admitted to the hospital infectious disease was consulted regarding confusion and need for antibiotic therapy most information has been obtained from review the chart as the patient was unable to provide reliable history Past Medical History Past Medical History: No Reported History Additional Past Medical History / Comment(s): IRON DEFICIENCY ANEMIA. History of Any Multi-Drug Resistant Organisms: None Reported Past Surgical History: Back Surgery, Bariatric Surgery, Orthopedic Surgery Additional Past Surgical History / Comment(s): right shoulder, left shoulder, gastric bypass Past Anesthesia/Blood Transfusion Reactions: No Reported Reaction Past Psychological History: Anxiety, Bipolar, Depression Smoking Status: Never smoker Past Alcohol Use History: Abuse Past Drug Use History: Prescription Drug Abuse - Past Family History Mother Family Medical History: No Reported History Sister(s) Family Medical History: Pulmonary Embolus Medications and Allergies Home Medications Medication Instructions Recorded Confirmed Type lamoTRIgine [LaMICtal] 200 mg PO BID 30 Days #60 tablet 02/08/18 06/19/23 Rx Levothyroxine Sodium [Synthroid] 88 mcg PO HS 03/30/23 06/19/23 History QUEtiapine FUMARATE [SEROquel] 300 mg PO HS 04/12/23 06/19/23 History Cyclobenzaprine [Flexeril] 5 mg PO Q8H PRN 05/12/23 06/19/23 History Ergocalciferol [Vitamin D2 (1250 1,250 mcg PO FR 05/12/23 06/19/23 History Mcg = 52002 Iu)] Linaclotide [Linzess] 145 mcg PO DAILY PRN 05/12/23 06/19/23 History Acetaminophen Tab [Tylenol] 650 mg PO Q6HR PRN tab 05/23/23 06/19/23 Rx Rivaroxaban [Xarelto] 20 mg PO W/SUPPER tab 05/23/23 06/19/23 Rx Sennosides [Senokot] 8.6 mg PO DAILY tab 05/23/23 06/19/23 Rx Sodium Chloride Tab 1 gm PO BID tab 05/23/23 06/19/23 Rx carvediloL [Coreg] 6.25 mg PO BID-W/MEALS tab 05/23/23 06/19/23 Rx Healthshake 1 dose PO TID@0800,1200,1800 06/19/23 06/19/23 History LORazepam [Ativan] 0.5 mg PO Q12H PRN 06/19/23 06/19/23 History Magnesium Hydroxide [Milk of 2,400 mg PO Q72H PRN 06/19/23 06/19/23 History Magnesia] QUEtiapine [SEROquel] 50 mg PO DAILY@1600 06/19/23 06/19/23 History cefaDROXiL [Duricef] 500 mg PO BID@0800,1600 06/19/23 06/19/23 History oxyCODONE HCL/ACETAMINOPHEN 1 tab PO Q6HR PRN 06/19/23 06/19/23 History [Percocet 10-325 mg] traZODone HCL [Desyrel] 50 mg PO HS 06/19/23 06/19/23 History Allergies Allergy/AdvReac Type Severity Reaction Status Date / Time No Known Allergies Allergy Verified 06/19/23 12:53 Physical Exam Vitals: Vital Signs Temp Pulse Resp BP Pulse Ox 06/19/23 16:57 77 18 136/67 98 06/19/23 15:29 96 18 165/84 96 06/19/23 14:38 18 06/19/23 14:34 92 18 116/92 100 06/19/23 12:37 94 17 152/96 98 06/19/23 12:12 98.7 F 55 L 22 83/35 96 Intake and Output 06/19/23 06/19/23 06/19/23 06:59 14:59 22:59 Other: Weight 79.379 kg Results CBC & Chem 7: 06/24/23 06:01 06/25/23 06:02 Labs: Abnormal Lab Results - Last 24 Hours (Table) 06/19/23 06/19/23 06/19/23 Range/Units 14:01 14:01 14:01 RBC (3.80-5.40) m/uL Hgb (11.4-16.0) gm/dL Hct (34.0-46.0) % MCHC (31.0-37.0) g/dL RDW (11.5-15.5) % Neutrophils # (1.3-7.7) k/uL Lymphocytes # (1.0-4.8) k/uL PT 13.3 H (10.0-12.5) sec INR 1.3 H (<1.2) APTT 30.8 H (22.0-30.0) sec Sodium 134 L (137-145) mmol/L Creatinine 0.28 L (0.52-1.04) mg/dL Alkaline Phosphatase 278 H (38-126) U/L Troponin I (0.000-0.034) ng/mL Total Protein 5.5 L (6.3-8.2) g/dL Albumin 2.8 L (3.5-5.0) g/dL Urine Appearance Cloudy H (Clear) Urine Protein 1+ H (Negative) Ur Leukocyte Esterase Trace H (Negative) Urine RBC 7 H (0-5) /hpf Urine WBC 9 H (0-5) /hpf Hyaline Casts 4 H (0-2) /lpf Urine Mucus Many H (None) /hpf Urine Opiates Screen Detected H (NotDetected) Ur Oxycodone Screen Detected H (NotDetected) U Tricyclic Antidepress Detected H (NotDetected) U Benzodiazepines Scrn Detected H (NotDetected) 06/19/23 06/19/23 Range/Units 14:40 14:40 RBC 3.30 L (3.80-5.40) m/uL Hgb 9.8 L (11.4-16.0) gm/dL Hct 31.9 L (34.0-46.0) % MCHC 30.8 L (31.0-37.0) g/dL RDW 15.7 H (11.5-15.5) % Neutrophils # 8.7 H (1.3-7.7) k/uL Lymphocytes # 0.6 L (1.0-4.8) k/uL PT (10.0-12.5) sec INR (<1.2) APTT (22.0-30.0) sec Sodium (137-145) mmol/L Creatinine (0.52-1.04) mg/dL Alkaline Phosphatase (38-126) U/L Troponin I 0.035 H* (0.000-0.034) ng/mL Total Protein (6.3-8.2) g/dL Albumin (3.5-5.0) g/dL Urine Appearance (Clear) Urine Protein (Negative) Ur Leukocyte Esterase (Negative) Urine RBC (0-5) /hpf Urine WBC (0-5) /hpf Hyaline Casts (0-2) /lpf Urine Mucus (None) /hpf Urine Opiates Screen (NotDetected) Ur Oxycodone Screen (NotDetected) U Tricyclic Antidepress (NotDetected) U Benzodiazepines Scrn (NotDetected) Assessment and Plan Plan: 1-patient presenting to the hospital with increasing confusion in this patient who recently did have extensive thoracic spine surgery after a T9 burst fracture patient did have cellulitis to the surgical site unclear examination could be the likely source of this confusion as the patient did have a negative chest x- ray UA was not significantly positive abdominal soft on clinical examination 2-we will obtain blood culture and inflammatory markers 3-empirically start the patient on vancomycin and cefepime 4-spine surgery evaluation and need for further imaging-evidence of any localized fluid collection that may need to be drained We will follow on clinical condition and cultures to further adjust medication if needed Thank you for this consultation we will follow the patient along with you Dictation was produced using [employer] dictation software. please excuse any grammatical, word or spelling errors. Time with Patient: Greater than 30
[2023-06-20 08:36] LABS: Glucose,Whole Blood 67 mg/dL (70-110)
[2023-06-20] MEDS: QUEtiapine 50 MG TAB PO SCH (08:47)
[2023-06-20] MEDS: SENNOSIDES 8.6 MG TAB PO SCH (08:48)
[2023-06-20 09:37] LABS: Glucose,Whole Blood 104 mg/dL (70-110)
--- NOTE | 2023-06-20 10:57 | CT ---
EXAMINATION TYPE: CT thor lumbar spine wo con DATE OF EXAM: 06/20/2023 COMPARISON: CT of the thoracolumbar spine May 16, 2023 HISTORY: back pain CT DLP: 2227 mGycm Automated exposure control for dose reduction was used. FINDINGS: Redemonstration of posterior interpedicular rods and screws transfixing T6 through the upper sacrum f rom with extension through the sacroiliac joints into the bilateral iliac bones redemonstrated. Scoli otic curvature in the upper thoracic spine is again seen. There is multilevel vertebroplasty in the t horacic spine from T6 through T10 vertebra with additional involvement at the L1 and L3 levels redemo nstrated. There is mild height loss involving the superior T3 and T5 endplates with sclerosis which l atter is new from most recent CT. Moderate compression type fracture at the T6 vertebra is new from m ost recent CT. Sclerosis is present. Slight posterior retropulsion along inferior T6 vertebra into th e spinal canal is noted. Persistent multilevel laminectomy defects and spinous process resection in t he lumbar spine. Moderately distended bladder is partially imaged on current study. There are small b ilateral pleural effusions on current study which are slightly larger versus prior. IMPRESSION: Extensive surgical changes redemonstrated with stable alignment. There is new mild compre ssion type fracture involving the superior T5 endplate. There is new moderate compression type fractu re involving the T6 vertebra with slight posterior retropulsion inferiorly. Small bilateral pleural e ffusions are increased in size from prior CT. Moderately distended bladder noted.
--- NOTE | 2023-06-20 12:33 | P.CNOR ---
History of Present Illness - HPI Consult date: 06/20/23 Consult reason: other (History of previous thoracic/lumbar surgery) History of present illness: Patient is a 68-year-old female who was evaluated on 06/19/[address] Flores in the outpatient setting. At that time patient was very obtunded and out of it. She was brought in by the subacute rehab staff. We recommended patient be sent immediately to [facility] ER for further evaluation. We w ere then consulted for further evaluation. Patient has a very extensive history involving her back, she underwent an original [id number] decompression and fusion by Dr. Sheehan's and back in mid March 2023. Patient has been in and out of the hospital many times since then and been at rehab. There is been issues with urinary tract infection, patient also had a pulmonary embolism at 1 point. She had fallen also at rehab which resulted in a burst fracture at T9. Patient underwent a T6-T10 posterior stabilization with ORIF at T9 on May 15, 2023. On exam today in the emergency room, patient is very obtunded and alert and oriented x 0. I am unable to achieve any review of systems or HPI or physical exam. Review of Systems Constitutional: Reports as per HPI Past Medical History Past Medical History: No Reported History Additional Past Medical History / Comment(s): IRON DEFICIENCY ANEMIA. History of Any Multi-Drug Resistant Organisms: None Reported Past Surgical History: Back Surgery, Bariatric Surgery, Orthopedic Surgery Additional Past Surgical History / Comment(s): right shoulder, left shoulder, gastric bypass Past Anesthesia/Blood Transfusion Reactions: No Reported Reaction Past Psychological History: Anxiety, Bipolar, Depression Smoking Status: Never smoker Past Alcohol Use History: Abuse Past Drug Use History: Prescription Drug Abuse - Past Family History Mother Family Medical History: No Reported History Sister(s) Family Medical History: Pulmonary Embolus Medications and Allergies Home Medications Medication Instructions Recorded Confirmed Type lamoTRIgine [LaMICtal] 200 mg PO BID 30 Days #60 tablet 02/08/18 06/19/23 Rx Levothyroxine Sodium [Synthroid] 88 mcg PO HS 03/30/23 06/19/23 History QUEtiapine FUMARATE [SEROquel] 300 mg PO HS 04/12/23 06/19/23 History Cyclobenzaprine [Flexeril] 5 mg PO Q8H PRN 05/12/23 06/19/23 History Ergocalciferol [Vitamin D2 (1250 1,250 mcg PO FR 05/12/23 06/19/23 History Mcg = 09141 Iu)] Linaclotide [Linzess] 145 mcg PO DAILY PRN 05/12/23 06/19/23 History Acetaminophen Tab [Tylenol] 650 mg PO Q6HR PRN tab 05/23/23 06/19/23 Rx Rivaroxaban [Xarelto] 20 mg PO W/SUPPER tab 05/23/23 06/19/23 Rx Sennosides [Senokot] 8.6 mg PO DAILY tab 05/23/23 06/19/23 Rx Sodium Chloride Tab 1 gm PO BID tab 05/23/23 06/19/23 Rx carvediloL [Coreg] 6.25 mg PO BID-W/MEALS tab 05/23/23 06/19/23 Rx Healthshake 1 dose PO TID@0800,1200,1800 06/19/23 06/19/23 History LORazepam [Ativan] 0.5 mg PO Q12H PRN 06/19/23 06/19/23 History Magnesium Hydroxide [Milk of 2,400 mg PO Q72H PRN 06/19/23 06/19/23 History Magnesia] QUEtiapine [SEROquel] 50 mg PO DAILY@1600 06/19/23 06/19/23 History cefaDROXiL [Duricef] 500 mg PO BID@0800,1600 06/19/23 06/19/23 History oxyCODONE HCL/ACETAMINOPHEN 1 tab PO Q6HR PRN 06/19/23 06/19/23 History [Percocet 10-325 mg] traZODone HCL [Desyrel] 50 mg PO HS 06/19/23 06/19/23 History Allergies Allergy/AdvReac Type Severity Reaction Status Date / Time No Known Allergies Allergy Verified 06/19/23 12:53 Physical Examination Physical exam was very limited due to patient's mental status I was able to examine the patient's posterior back, there is some generalized redness from the most recent incision which extends from about T6 down to T10. There is no active drainage visualized. There was no obvious fluctuance appreciated. There was some drainage noted on the bandage that was removed. Patient was moving the bilateral upper extremities at times along with the bilateral lower extremities. Results - Labs Labs: Abnormal Lab Results - Last 24 Hours (Table) 06/19/23 06/19/23 06/19/23 Range/Units 14:01 14:01 14:01 RBC (3.80-5.40) m/uL Hgb (11.4-16.0) gm/dL Hct (34.0-46.0) % MCHC (31.0-37.0) g/dL RDW (11.5-15.5) % Neutrophils # (1.3-7.7) k/uL Lymphocytes # (1.0-4.8) k/uL PT 13.3 H (10.0-12.5) sec INR 1.3 H (<1.2) APTT 30.8 H (22.0-30.0) sec Sodium 134 L (137-145) mmol/L Creatinine 0.28 L (0.52-1.04) mg/dL POC Glucose (mg/dL) (70-110) mg/dL Alkaline Phosphatase 278 H (38-126) U/L Troponin I (0.000-0.034) ng/mL C-Reactive Protein (<1.0) mg/dL Total Protein 5.5 L (6.3-8.2) g/dL Albumin 2.8 L (3.5-5.0) g/dL Procalcitonin (0.02-0.09) ng/mL Urine Appearance Cloudy H (Clear) Urine Protein 1+ H (Negative) Ur Leukocyte Esterase Trace H (Negative) Urine RBC 7 H (0-5) /hpf Urine WBC 9 H (0-5) /hpf Hyaline Casts 4 H (0-2) /lpf Urine Mucus Many H (None) /hpf Urine Opiates Screen Detected H (NotDetected) Ur Oxycodone Screen Detected H (NotDetected) U Tricyclic Antidepress Detected H (NotDetected) U Benzodiazepines Scrn Detected H (NotDetected) 06/19/23 06/19/23 06/19/23 Range/Units 14:01 14:01 14:40 RBC 3.30 L (3.80-5.40) m/uL Hgb 9.8 L (11.4-16.0) gm/dL Hct 31.9 L (34.0-46.0) % MCHC 30.8 L (31.0-37.0) g/dL RDW 15.7 H (11.5-15.5) % Neutrophils # 8.7 H (1.3-7.7) k/uL Lymphocytes # 0.6 L (1.0-4.8) k/uL PT (10.0-12.5) sec INR (<1.2) APTT (22.0-30.0) sec Sodium (137-145) mmol/L Creatinine (0.52-1.04) mg/dL POC Glucose (mg/dL) (70-110) mg/dL Alkaline Phosphatase (38-126) U/L Troponin I (0.000-0.034) ng/mL C-Reactive Protein 19.5 H (<1.0) mg/dL Total Protein (6.3-8.2) g/dL Albumin (3.5-5.0) g/dL Procalcitonin 0.56 H (0.02-0.09) ng/mL Urine Appearance (Clear) Urine Protein (Negative) Ur Leukocyte Esterase (Negative) Urine RBC (0-5) /hpf Urine WBC (0-5) /hpf Hyaline Casts (0-2) /lpf Urine Mucus (None) /hpf Urine Opiates Screen (NotDetected) Ur Oxycodone Screen (NotDetected) U Tricyclic Antidepress (NotDetected) U Benzodiazepines Scrn (NotDetected) 06/19/23 06/20/23 Range/Units 14:40 08:34 RBC (3.80-5.40) m/uL Hgb (11.4-16.0) gm/dL Hct (34.0-46.0) % MCHC (31.0-37.0) g/dL RDW (11.5-15.5) % Neutrophils # (1.3-7.7) k/uL Lymphocytes # (1.0-4.8) k/uL PT (10.0-12.5) sec INR (<1.2) APTT (22.0-30.0) sec Sodium (137-145) mmol/L Creatinine (0.52-1.04) mg/dL POC Glucose (mg/dL) 67 L (70-110) mg/dL Alkaline Phosphatase (38-126) U/L Troponin I 0.035 H* (0.000-0.034) ng/mL C-Reactive Protein (<1.0) mg/dL Total Protein (6.3-8.2) g/dL Albumin (3.5-5.0) g/dL Procalcitonin (0.02-0.09) ng/mL Urine Appearance (Clear) Urine Protein (Negative) Ur Leukocyte Esterase (Negative) Urine RBC (0-5) /hpf Urine WBC (0-5) /hpf Hyaline Casts (0-2) /lpf Urine Mucus (None) /hpf Urine Opiates Screen (NotDetected) Ur Oxycodone Screen (NotDetected) U Tricyclic Antidepress (NotDetected) U Benzodiazepines Scrn (NotDetected) H & H 06/19/23 Range/Units 14:40 Hgb 9.8 L (11.4-16.0) gm/dL Hct 31.9 L (34.0-46.0) % Coagulation 06/19/23 Range/Units 14:01 INR 1.3 H (<1.2) Result Diagrams: 06/19/23 14:40 06/19/23 14:01 Assessment and Plan Assessment: History of previous [id number] decompression and fusion History of fall resulting in T9 burst fracture, status post T6-T10 posterior stabilization and ORIF at T9 (05/15/2023) Altered mental status Grave debility Multiple medical comorbidities Plan: I was able to discuss the case, this to include physical exam findings and imaging studies my attending Dr. Sheehan some. No emergent surgical in tervention is recommended at this time. Multiple lab test have been ordered, this to include rechecking of CBC, sed rate, CRP. CT scan of the thoracic and lumbar spine was also ordered for evaluation of thoracic and lumbar hardware Both internal medicine and infectious disease are following at this time, their recommendations are appreciated GI and DVT prophylaxis per primary medical service Avoid narcotics at this time due to current mental state Further recommendations to follow Time with Patient: Less than 30
--- NOTE | 2023-06-20 13:44 | P.PN ---
Progress Note - Text Progress Note Date: 06/20/23 Chief Complaint: Increasing confusion This is a pleasant 68-year-old patient, follows with Dr. Malik Beyer. Patient on 03/31/2023 underwent lower back surgery by Dr. Flores. Rather extensive surgery. Following that patient was discharged to [facility] for rehab. Patient then readmitted from April 13 through April 17. Was found to have pulmonary embolism. discharged to [facility]. Readmitted May 13 been having falls. Some low back pain. This morning patient was on the toilet and she fell down hitting the head. Did not pass out. Cervical collar was placed. CT scans of brain unremarkable. She been having some weakness of the lower extremity. Apparently at home the dog ran into her and she had fallen on her left side. She is also having trouble getting out of bed. Has been using a walker. No change in bowel or urine pattern. No fever or chills. Orthopedics/Dr. Flores was consulted Per son Jeronimo: Patient had stopped taking her Xarelto since she left [facility]. She has signed herself out AMA within 24 hours. Left AMA. Patient was resumed on Xarelto chest CT was negative for PE. Patient subsequently discharged to rehab on May 23.. Patient now presents with increasing confusion. Rather delirious. Cannot really pin down the history. No fever reported. Patient has some low back pain. June 19: Patient remains a bit delirious. Did take her medications. Decreased oral intake. Being followed by ID. On IV cefepime and vancomycin. Patient seen by QA TEST ANALYST from Dr. Flores's team. At this point continue with antibiotics. No other intervention for them. Active Medications Acetaminophen (Acetaminophen Tab 325 Mg Tab) 650 mg PO Q6HR PRN PRN Reason: Mild Pain or Fever > 100.5 Hydrocodone Bitart/Acetaminophen (Hydrocodone/Apap 5-325mg 1 Each Tab) 1 each PO Q6HR PRN PRN Reason: Pain Last Admin: 06/20/23 07:00 Dose: 1 each Carvedilol (Carvedilol 3.125 Mg Tab) 3.125 mg PO BID-W/MEALS BRYN Last Admin: 06/20/23 08:44 Dose: 3.125 mg Cyclobenzaprine HCl (Cyclobenzaprine 5 Mg Tab) 5 mg PO Q8H PRN PRN Reason: Muscle Spasm Ergocalciferol (Ergocalciferol 1,250 Mcg (50,000 Iu) Capsule) 1,250 mcg PO Fr@0900 [facility] Sodium Chloride (Saline 0.9%) 1,000 mls @ 75 mls/hr IV .[id number] [facility] Last Admin: 06/20/23 04:48 Dose: 75 mls/hr Cefepime HCl 2 gm/ Sodium (Chloride) 100 mls @ 25 mls/hr IVPB Q8H [facility]; Protocol Last Admin: 06/20/23 09:13 Dose: 25 mls/hr Vancomycin HCl 1,500 mg/ (Sodium Chloride) 500 mls @ 167 mls/hr IVPB Q12H [facility] Lamotrigine (Lamotrigine 100 Mg Tab) 200 mg PO BID [facility] Last Admin: 06/20/23 08:45 Dose: 200 mg Levothyroxine Sodium (Levothyroxine 88 Mcg Tab) 88 mcg PO [facility] Last Admin: 06/19/23 21:28 Dose: 88 mcg Lorazepam (Lorazepam 0.5 Mg Tab) 0.5 mg PO Q12H PRN PRN Reason: Anxiety Last Admin: 06/20/23 01:29 Dose: 0.5 mg Miscellaneous Information (Vancomycin Trough Due 1 Each Misc) 0 each MISCELLANE DIRECTED ONE Stop: 06/21/23 10:01 Naloxone HCl (Naloxone 0.4 Mg/Ml 1 Ml Vial) 0.2 mg IV Q2M PRN PRN Reason: Opioid Reversal Non-Formulary Medication (Linaclotide [Linzess]) 145 mcg PO DAILY PRN PRN Reason: Constipation Quetiapine Fumarate (Quetiapine 50 Mg Tab) 50 mg PO DAILY@0900 [facility] Last Admin: 06/20/23 08:47 Dose: 50 mg Quetiapine Fumarate (Quetiapine 100 Mg Tab) 400 mg PO [facility] Last Admin: 06/19/23 21:26 Dose: 400 mg Rivaroxaban (Rivaroxaban 20 Mg Tab) 20 mg PO W/SUPPER [facility]; Protocol Last Admin: 06/19/23 21:28 Dose: 20 mg Senna (Sennosides 8.6 Mg Tab) 8.6 mg PO DAILY [facility] Last Admin: 06/20/23 08:48 Dose: 8.6 mg Sodium Chloride (Sodium Chloride Tab 1 Gm Tab) 1 gm PO BID [facility] Last Admin: 06/20/23 08:48 Dose: 1 gm Trazodone HCl (Trazodone Hcl 50 Mg Tab) 50 mg PO HS [facility] Last Admin: 06/19/23 21:27 Dose: 50 mg Past medical history to include: Iron deficiency anemia, gastric bypass, bipolar disorder, osteoarthritis, constipation possibly from narcotics. Lower back pain with surgery Social history: Prior history of prescription drug abuse. [place]. Has been clean since 2014. Son lives at home with her. Currently at rehab at [facility] Physical examination: VITAL SIGNS: 98.2, 73, 20, 127 x 77, 96% room air GENERAL: A bit less delirious but able to answer questions. EYES: Pupils equal. Conjunctiva normal. HEENT: External appearance of nose and ears normal, oral cavity grossly normal. NECK: JVD not raised HEART: First and second heart sounds are normal; no edema. LUNGS: Respiratory rate normal; clear to auscultation. ABDOMEN: Soft, nontender, liver spleen not palpable, no masses palpable. PSYCH: A bit less delirious. Answering questions a bit better. MUSCULOSKELETAL:No Clubbing/cyanosis;muscles-grossly intact. OA. Some redness at the surgical incision site NEUROLOGICAL: Cranial nerves grossly intact. 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 Able to move both the lower extremity. INVESTIGATIONS, reviewed in the clinical context: Procalcitonin 0.56 June 19, 2023: Weight Silver 10.3 hemoglobin 9.8 platelets 351 sodium 134 potassium 4 creatinine 0.28 Troponin I 0.035 Urine drug screen positive for opiates, oxycodone, tricyclic antidepressant, benzodiazepines Assessment and plan: -Acute delirium metabolic encephalopathy..: Slow to respond. cut back patient [place] to 5. Added morning Seroquel 50 mg. Other medications to continue. Prescribed medications as per Dr. Winn upon last discharge. - lumbar surgery in March with Dr. Flores. Possible incision infection: Slow to respond IV vancomycin, IV cefepime. ID following -Essential hypertension, Decreased Coreg 3.125 mg twice daily - vertebral body compression fracture which is reported to be new from March 31. Patient had a fall 2 weeks ago when her dog and ran into her at home. Open treatment of T9 fracture with reduction. T6-T10 instrumented post lateral fusion. With stabilization. Decompressive laminectomy. Etc. with Dr. Flores May 16, [address] Flores -Chronic pulmonary embolism. March 2023 Xarelto - gait dysfunction following surgery. rehab Does use a walker -Bipolar disorder: Previously seen by Dr. Winn from psychiatry: Seroquel to 400 mg nightly. 50 mg of Seroquel in the morning.. -Hypothyroid Synthroid 88 g a day -Full code Continue IV cefepime IV vancomycin. Follow with ID. Past Medical History Past Medical History: No Reported History Additional Past Medical History / Comment(s): IRON DEFICIENCY ANEMIA. History of Any Multi-Drug Resistant Organisms: None Reported Past Surgical History: Back Surgery, Bariatric Surgery, Orthopedic Surgery Additional Past Surgical History / Comment(s): right shoulder, left shoulder, gastric bypass Past Anesthesia/Blood Transfusion Reactions: No Reported Reaction Past Psychological History: Anxiety, Bipolar, Depression Smoking Status: Never smoker Past Alcohol Use History: Abuse Past Drug Use History: Prescription Drug Abuse
--- NOTE | 2023-06-20 13:50 | P.PN ---
Subjective Progress Note Date: 06/20/23 Principal diagnosis: Reason for follow-up is cellulitis to the thoracic spine incision Patient is a 68-year-old female who recently did have T9 burst fracture and the patient is status post open treatment of T9 fracture with extensive surgery to the T6-T10 spine, patient has been brought back to the hospital concerning for mental status changing and confusion. On today's visit that is 06/20/2023,the patient remains to be afebrile, patient is on room air not requiring supplemental oxygen, the patient remains to be pleasantly confused and is unable to provide any history no vomiting diarrhea or any other changes were reported by the nursing staff. No new labs has been obtained today cultures are currently pending Objective - Vital Signs Vital signs: Vital Signs Temp 98.1 F 06/20/23 09:16 Pulse 84 06/20/23 09:16 Resp 22 06/20/23 09:16 BP 127/77 06/20/23 09:16 Pulse Ox 95 06/20/23 09:16 FiO2 Intake & Output 06/19/23 06/20/23 06/20/23 18:59 06:59 18:59 Weight 79.379 kg - Exam GENERAL DESCRIPTION: An elderly female lying in bed in no distress RESPIRATORY SYSTEM: Unlabored breathing , decreased breath sounds at bases HEART: S1 S2 regular rate and rhythm , ABDOMEN: Soft , no tenderness Erythema to the thoracic spine incision decreased compared to yesterday juancarlos are still intact - Labs CBC & Chem 7: 06/19/23 14:40 06/19/23 14:01 Labs: Abnormal Lab Results - Last 24 Hours (Table) 06/19/23 06/19/23 06/19/23 Range/Units 14:01 14:01 14:01 RBC (3.80-5.40) m/uL Hgb (11.4-16.0) gm/dL Hct (34.0-46.0) % MCHC (31.0-37.0) g/dL RDW (11.5-15.5) % Neutrophils # (1.3-7.7) k/uL Lymphocytes # (1.0-4.8) k/uL PT 13.3 H (10.0-12.5) sec INR 1.3 H (<1.2) APTT 30.8 H (22.0-30.0) sec Sodium 134 L (137-145) mmol/L Creatinine 0.28 L (0.52-1.04) mg/dL POC Glucose (mg/dL) (70-110) mg/dL Alkaline Phosphatase 278 H (38-126) U/L Troponin I (0.000-0.034) ng/mL C-Reactive Protein (<1.0) mg/dL Total Protein 5.5 L (6.3-8.2) g/dL Albumin 2.8 L (3.5-5.0) g/dL Procalcitonin (0.02-0.09) ng/mL Urine Appearance Cloudy H (Clear) Urine Protein 1+ H (Negative) Ur Leukocyte Esterase Trace H (Negative) Urine RBC 7 H (0-5) /hpf Urine WBC 9 H (0-5) /hpf Hyaline Casts 4 H (0-2) /lpf Urine Mucus Many H (None) /hpf Urine Opiates Screen Detected H (NotDetected) Ur Oxycodone Screen Detected H (NotDetected) U Tricyclic Antidepress Detected H (NotDetected) U Benzodiazepines Scrn Detected H (NotDetected) 06/19/23 06/19/23 06/19/23 Range/Units 14:01 14:01 14:40 RBC 3.30 L (3.80-5.40) m/uL Hgb 9.8 L (11.4-16.0) gm/dL Hct 31.9 L (34.0-46.0) % MCHC 30.8 L (31.0-37.0) g/dL RDW 15.7 H (11.5-15.5) % Neutrophils # 8.7 H (1.3-7.7) k/uL Lymphocytes # 0.6 L (1.0-4.8) k/uL PT (10.0-12.5) sec INR (<1.2) APTT (22.0-30.0) sec Sodium (137-145) mmol/L Creatinine (0.52-1.04) mg/dL POC Glucose (mg/dL) (70-110) mg/dL Alkaline Phosphatase (38-126) U/L Troponin I (0.000-0.034) ng/mL C-Reactive Protein 19.5 H (<1.0) mg/dL Total Protein (6.3-8.2) g/dL Albumin (3.5-5.0) g/dL Procalcitonin 0.56 H (0.02-0.09) ng/mL Urine Appearance (Clear) Urine Protein (Negative) Ur Leukocyte Esterase (Negative) Urine RBC (0-5) /hpf Urine WBC (0-5) /hpf Hyaline Casts (0-2) /lpf Urine Mucus (None) /hpf Urine Opiates Screen (NotDetected) Ur Oxycodone Screen (NotDetected) U Tricyclic Antidepress (NotDetected) U Benzodiazepines Scrn (NotDetected) 06/19/23 06/20/23 Range/Units 14:40 08:34 RBC (3.80-5.40) m/uL Hgb (11.4-16.0) gm/dL Hct (34.0-46.0) % MCHC (31.0-37.0) g/dL RDW (11.5-15.5) % Neutrophils # (1.3-7.7) k/uL Lymphocytes # (1.0-4.8) k/uL PT (10.0-12.5) sec INR (<1.2) APTT (22.0-30.0) sec Sodium (137-145) mmol/L Creatinine (0.52-1.04) mg/dL POC Glucose (mg/dL) 67 L (70-110) mg/dL Alkaline Phosphatase (38-126) U/L Troponin I 0.035 H* (0.000-0.034) ng/mL C-Reactive Protein (<1.0) mg/dL Total Protein (6.3-8.2) g/dL Albumin (3.5-5.0) g/dL Procalcitonin (0.02-0.09) ng/mL Urine Appearance (Clear) Urine Protein (Negative) Ur Leukocyte Esterase (Negative) Urine RBC (0-5) /hpf Urine WBC (0-5) /hpf Hyaline Casts (0-2) /lpf Urine Mucus (None) /hpf Urine Opiates Screen (NotDetected) Ur Oxycodone Screen (NotDetected) U Tricyclic Antidepress (NotDetected) U Benzodiazepines Scrn (NotDetected) Assessment and Plan (1) Surgical site infection Current Visit: Yes Status: Acute Code(s): T81.49XA - INFECTION FOLLOWING A PROCEDURE, OTHER SURGICAL SITE, INIT SNOMED Code(s): 19664076 Plan: 1-patient presenting to the hospital with increasing confusion in this patient who recently did have extensive thoracic spine surgery after a T9 burst fracture patient did have cellulitis to the surgical site unclear examination could be the likely source of this confusion as the patient did have a negative chest x- ray UA was not significantly positive abdominal soft rectal examination 2-cultures are currently pending 3-patient did have improvement of erythema to the thoracic spine and will continue the patient on vancomycin and cefepime while waiting for the culture to finalize Family at the bedside questions were answered Dictation was produced using [employer] dictation software. please excuse any grammatical, word or spelling errors. Time with Patient: Less than 30
--- NOTE | 2023-06-20 15:32 | P.CN ---
Psychiatric Consult - . Consult date: 06/20/23 Consult:: IDENTIFYING DATA: This patient is a 68-year-old female with history of bipolar disorder who was admitted from [facility] with altered mental status s/p back surgery in March 2023. REASON FOR REFERRAL: Psychiatry was consulted for AMS. HISTORY OF PRESENT ILLNESS: The patient presented to the hospital on 06/19/23. Per medical consult dated 06/19/23: "Patient is a 68-year-old female who recently did have T9 burst fracture and the patient is status post open treatment of T9 fracture with reduction T6-T10 instrumental posterior lateral fusion T6-T10 stabilization, T8-T10 bilateral decompressive laminectomy partial medial facetectomy and foraminotomy, the patient was subsequently stabilized and has been discharged to the local intermediate for rehabilitation patient has been brought back to [facility] ER for evaluation of increasing confusion apparently symptom has been going on for a day or 2 before the patient was sent to the ER in the intermediate was concern for urinary tract infection as the patient did have history of recurrent UTI patient on presentation to the hospital was afebrile and no fever have recorded subsequently patient was not tachycardic hypotensive or hypoxic did have a white count of 10.3 with a left shift creatinine has been normal liver isms are normal urine is mildly positive urine testing was positive for opiates and tricyclic's and benzos and oxycodone patient did have a chest x-ray no evidence of effusion, focal consolidation or pneumothorax patient has been admitted to the hospital infectious disease was consulted regarding confusion and need for antibiotic therapy most information has been obtained from review the chart as the patient was unable to provide reliable history". Per medical note dated 06/19/23: "This is a pleasant 68-year-old patient, follows with Dr. Malik Beyer. Patient on 03/31/2023 underwent lower back surgery by Dr. Flores. Rather extensive surgery. Following that patient was discharged to [facility] for rehab. Patient then readmitted from April 13 through April 17. Was found to have pulmonary embolism. discharged to [facility].Readmitted May 13 been having falls. Some low back pain. This morning patient was on the toilet and she fell down hitting the head. Did not pass out. Cervical collar was placed. CT scans of brain unremarkable. She been having some weakness of the lower extremity. Apparently at home the dog ran into her and she had fallen on her left side. She is also having trouble getting out of bed. Has been using a walker. No change in bowel or urine pattern. No fever or chills. Orthopedics/Dr. Flores was consulted. Per son Jeronimo: Patient had stopped taking her Xarelto since she left [facility]. She has signed herself out AMA within 24 hours. Left AMA. Patient was resumed on Xarelto chest CT was negative for PE. Patient subsequently discharged to rehab on May 23. Patient now presents with increasing confusion. Rather delirious. Cannot really pin down the history. No fever reported. Patient has some low back pain." I attempted to evaluated Darline today and found her asleep in bed. On awakening, she is confused and groans incoherently. She is not able to participate in meaningful assessment due to her delirium. Left message for patient's nurse since she was not on the unit. Records and labs reviewed. She has been started on antibiotics for suspected infection and is being followed by ID. CT head reviewed and new hypointensity visible in right cerebral hemisphere suggestive of infarct or artifact. MRI recommended. From chart, patient has a history of prescription drug abuse, reportedly [place] and has been "clean" since per chart. She is nonsmoker, also has a history of alcohol use. PAST PSYCHIATRIC HISTORY: Patient has a a history of bipolar disorder and depression. Current psychiatric medications: Ativan PRN, Seroquel, Lamictal, Trazodone. Previously on Zoloft as of 05/2023, unclear when this was disco ntinued. Previous psychiatric hospitalizations at [facility] in 01/2014 and 01/2018. Psychiatric outpatient follow-up not known at this time. History of suicide attempts not known at this time; none per chart. PAST MEDICAL HISTORY: Past Medical History: No Reported History Additional Past Medical History / Comment(s): IRON DEFICIENCY ANEMIA. History of Any Multi-Drug Resistant Organisms: None Reported Past Surgical History: Back Surgery, Bariatric Surgery, Orthopedic Surgery Additional Past Surgical History / Comment(s): right shoulder, left shoulder, gastric bypass Past Anesthesia/Blood Transfusion Reactions: No Reported Reaction Past Psychological History: Anxiety, Bipolar, Depression Smoking Status: Never smoker Past Alcohol Use History: Abuse Past Drug Use History: Prescription Drug Abuse ALLERGIES: as per EMR. CHEMICAL DEPENDENCY HISTORY: as per HPI. FAMILY PSYCHIATRIC/SUBSTANCE USE HISTORY: Not known at this time. SOCIAL HISTORY: . Has an adult son she was living with, is currently in physical rehab after back surgery and falls. She has 4 adult kids. MENTAL STATUS EXAM: General Appearance: Patient appears to be stated age, mildly disheveled with dry lips. Fair hygiene and grooming. Behavior: Confused, groans incoherently, poor eye contact. Speech: Groans incoherently. No meaningful dialogue. Mood/Affect: Not able to fully assess due to delirium; affect is constricted. Suicidality/Homicidality: Not able to fully assess due to delirium Perceptions: Not able to fully assess due to delirium. Does not appear to be attending to internal stimuli. Though content/process: Groans incoherently, unable to fully assess due to delirium Memory and concentration: Awakens, alert and is oriented to person when calling her name. Impaired concentration. Judgment and insight: poor IMPRESSIONS: Delirium, multifactorial (infection, anemia, s/p surgery, polypharmacy, age) History of bipolar disorder PLAN: -At this time patient DOES NOT meet criteria for inpatient psychiatric admission. -Patient DOES NOT have decision making capacity at this time and is unable to reason through and communicate/appreciate the risks, benefits and alternatives to treatment. -Delirium precautions recommended with patient including - avoiding use of narcotics and [employer] sedatives, limit anticholinergic medications when possible, frequent re-orientation, minimize use of restraints, open window shades during the day and close them at night. -Would recommend the following medication changes/additions: To minimize daytime sedation and risk of orthostatic hypotension/falls, will decrease Seroquel from 50 mg QAM/400 mg QHS to 25 mg daily in the morning, 25 mg daily in the afternoon and 300 mg QHS. Discontinue Ativan 0.5 mg Q12H PRN due to delirium and history of falls. Continue Lamictal 200 mg BID. Continue Trazodone 50 mg QHS for now. -Reviewed head CT. Follow-up MRI is recommended. -Cannot leave AMA at this time. Patient will need a petition and certification if attempting to leave AMA. -Continue to reevaluate safety and initiate sitter if safety concerns arise. Falls precautions. -Left message for patient's nurse since she was not on the unit. -Will continue to follow along. -Please contact with any questions. 06/20/23 13:24 06/20/23 14:54
[2023-06-20] MEDS: VANCOMYCIN 1,500 MG in SODIUM CHLORIDE 0.9% 500 ML 500 ML IVPB SCH (16:16)
[2023-06-20] MEDS: ACETAMINOPHEN TAB 325 MG TAB PO PRN (17:02)
[2023-06-20] MEDS: QUEtiapine 100 MG TAB PO SCH (20:53)
[2023-06-21] MEDS: QUEtiapine 25 MG TAB PO SCH ×2 (08:28→16:01)
--- NOTE | 2023-06-21 10:07 | P.PN ---
Subjective Progress Note Date: 06/21/23 Principal diagnosis: Delirium, previous thoracolumbar surgeries Patient was evaluated today at bedside, they utilizing soft restraints. Patient is definitely a lot more alert and oriented today. She still remains quite confused and answers my questions inappropriately, but the agitation is much improved. Physical exam remains very difficult along with HPI and ROS. Objective - Vital Signs Vital signs: Vital Signs Temp 97.4 F L 06/21/23 01:57 Pulse 89 06/21/23 01:57 Resp 19 06/21/23 01:57 BP 154/89 06/21/23 01:57 Pulse Ox 97 06/21/23 01:57 FiO2 Intake & Output 06/20/23 06/21/23 06/21/23 18:59 06:59 18:59 Output Total 400 300 Balance -400 -300 Weight 79.379 kg Output: Urine 400 300 Other: Voiding Method Incontinent Diaper Incontinent # Voids 1 - Exam Physical exam continues to be very difficult due to her current mental state. Patient was moving all extremities with no difficulty. Her hands are padded for protection at this time. With helping of nursing, was able to roll the patient on her back and change dressing once again. There was saturation noted throughout. There were juancarlos present in the upper thoracic region that were removed. ChloraPrep swabs were used to clean the incision along with sterile gauze to dry the area. I then applied a new Optifoam. - Labs CBC & Chem 7: 06/19/23 14:40 06/19/23 14:01 Labs: Abnormal Lab Results - Last 24 Hours (Table) 06/20/23 Range/Units 09:39 Procalcitonin 0.37 H (0.02-0.09) ng/mL Microbiology - Last 24 Hours (Table) 06/19/23 17:24 Blood Culture - Preliminary Blood Assessment and Plan Assessment: History of previous [id number] decompression and fusion History of fall resulting in T9 burst fracture, status post T6-T10 posterior stabilization and ORIF at T9 (05/15/2023) Cellulitis thoracic incision Altered mental status Grave debility Multiple medical comorbidities Plan: After further discussion with Dr. Sheehan send review of the CT scan. Patient has been tentatively scheduled for a incision with irrigation and debridement of the thoracic incision for 06/22/2023. hardware remains stable at this time. CRP was noted to be elevated on initial lab, I did order an ESR yesterday which has not been back. Patient's white count remains in the normal range Patient has been noncompliant with follow-up care. Unsure of the care she has been receiving at subacute rehab for incision checks. We were never contacted regarding wound care instructions including staple removal. Questioning polypharmacy for her current mental state, medications are being adjusted during this hospital stay. Both internal medicine and infectious disease are following at this time, their recommendations are appreciated GI and DVT prophylaxis per primary medical service Avoid narcotics at this time due to current mental state Will reassess patient and wound on 06/22/2023, further recommendations to follow
--- NOTE | 2023-06-21 11:26 | P.PN ---
Subjective Progress Note Date: 06/21/23 Principal diagnosis: Reason for follow-up is cellulitis to the thoracic spine incision Patient is a 68-year-old female who recently did have T9 burst fracture and the patient is status post open treatment of T9 fracture with extensive surgery to the T6-T10 spine, patient has been brought back to the hospital concerning for mental status changing and confusion. On today's visit that is 06/21/2023, the patient continues to be afebrile, the patient is on room air and breathing comfortably, the Pt denies is slightly more awake and alert however not a very good historian denies any worsening pain to the back area and no vomiting or any diarrhea has been reported by the nursing staff. No new labs today blood cultures pending Objective - Vital Signs Vital signs: Vital Signs Temp 97.4 F L 06/21/23 01:57 Pulse 89 06/21/23 01:57 Resp 19 06/21/23 01:57 BP 154/89 06/21/23 01:57 Pulse Ox 97 06/21/23 01:57 FiO2 Intake & Output 06/20/23 06/21/23 06/21/23 18:59 06:59 18:59 Output Total 400 300 Balance -400 -300 Weight 79.379 kg Output: Urine 400 300 Other: Voiding Method Incontinent Diaper Incontinent # Voids 1 - Exam GENERAL DESCRIPTION: An elderly female lying in bed in no distress RESPIRATORY SYSTEM: Unlabored breathing , decreased breath sounds at bases HEART: S1 S2 regular rate and rhythm , ABDOMEN: Soft , no tenderness Erythema to the thoracic spine incision decreased compared to yesterday juancarlos are still intact - Labs CBC & Chem 7: 06/19/23 14:40 06/19/23 14:01 Labs: Abnormal Lab Results - Last 24 Hours (Table) 06/20/23 Range/Units 09:39 Procalcitonin 0.37 H (0.02-0.09) ng/mL Microbiology - Last 24 Hours (Table) 06/19/23 17:24 Blood Culture - Preliminary Blood Assessment and Plan (1) Surgical site infection Current Visit: Yes Status: Acute Code(s): T81.49XA - INFECTION FOLLOWING A PROCEDURE, OTHER SURGICAL SITE, INIT SNOMED Code(s): 87831831 Plan: 1-patient presenting to the hospital with increasing confusion in this patient who recently did have extensive thoracic spine surgery after a T9 burst fracture patient did have cellulitis to the surgical site unclear examination could be the likely source of this confusion as the patient did have a negative chest x- ray UA was not significantly positive abdominal soft rectal examination 2-cultures are currently pending 3-patient did have improvement of erythema to the thoracic spine and will continue the patient on vancomycin and cefepime, patient is scheduled for washout of the thoracic spine and culture as per discussion with the orthopedic team Dictation was produced using [employer] dictation software. please excuse any grammatical, word or spelling errors.
[2023-06-21 12:44] LABS: Basophils % (A) 0 %; Eosinophils # (A) 0.1 k/uL (0-0.7); Eosinophils % (A) 2 %; HCT 30.9 % (34.0-46.0); HGB 9.3 gm/dL (11.4-16.0); Hypochromasia Marked; Lymphocytes # (A) 0.4 k/uL (1.0-4.8); Lymphocytes % (A) 7 %; MCH 29.8 pg (25.0-35.0); MCV 99.4 fL (80.0-100.0); Macrocytosis Slight; Mean Platelet Volume 7.6; Monocytes # (A) 0.4 k/uL (0-1.0); Monocytes % (A) 7 %; Neutrophils % (A) 82 %; Platelet Count 384 k/uL (150-450); RBC 3.11 m/uL (3.80-5.40); RDW 15.7 % (11.5-15.5); WBC 6.1 k/uL (3.8-10.6)
[2023-06-21 13:05] LABS: African American GFR (CKD) >90 (>60 ml/min/1.73 sqM); Anion Gap 5 mmol/L; Blood Urea Nitrogen 7 mg/dL (7-17); Calcium 8.4 mg/dL (8.4-10.2); Carbon Dioxide 21 mmol/L (22-30); Chloride 109 mmol/L (98-107); Glucose 84 mg/dL (74-99); Non-African American GFR(CKD) >90 (>60 ml/min/1.73 sqM); Potassium 2.9 mmol/L (3.5-5.1); Sodium 135 mmol/L (137-145)
[2023-06-21 13:09] LABS: African American GFR (CKD) >90 (>60 ml/min/1.73 sqM); Non-African American GFR(CKD) >90 (>60 ml/min/1.73 sqM)
[2023-06-21] MEDS: VANCOMYCIN TROUGH DUE 1 EACH MISC MISCELLANE ONE (16:00)
--- NOTE | 2023-06-21 16:30 | P.PN ---
Progress Note - Text Progress Note Date: 06/21/23 Chief Complaint: Increasing confusion This is a pleasant 68-year-old patient, follows with Dr. Malik Beyer. Patient on 03/31/2023 underwent lower back surgery by Dr. Flores. Rather extensive surgery. Following that patient was discharged to [facility] for rehab. Patient then readmitted from April 13 through April 17. Was found to have pulmonary embolism. discharged to [facility]. Readmitted May 13 been having falls. Some low back pain. This morning patient was on the toilet and she fell down hitting the head. Did not pass out. Cervical collar was placed. CT scans of brain unremarkable. She been having some weakness of the lower extremity. Apparently at home the dog ran into her and she had fallen on her left side. She is also having trouble getting out of bed. Has been using a walker. No change in bowel or urine pattern. No fever or chills. Orthopedics/Dr. Flores was consulted Per son Jeronimo: Patient had stopped taking her Xarelto since she left [facility]. She has signed herself out AMA within 24 hours. Left AMA. Patient was resumed on Xarelto chest CT was negative for PE. Patient subsequently discharged to rehab on May 23.. Patient now presents with increasing confusion. Rather delirious. Cannot really pin down the history. No fever reported. Patient has some low back pain. June 19: Patient remains a bit delirious. Did take her medications. Decreased oral intake. Being followed by ID. On IV cefepime and vancomycin. Patient seen by [employer] from Dr. Flores's team. At this point continue with antibiotics. No other intervention for them. June 20: Patient a bit less delirious today. Continues on IV cefepime and vancomycin. Patient being scheduled for I&D for tomorrow. Patient seen by psychiatry. Dose of Seroquel was cut back. Ativan discontinued. Sleep cycle discussed with the nurse. Patient did eat some food. Active Medications Acetaminophen (Acetaminophen Tab 325 Mg Tab) 650 mg PO Q6HR PRN PRN Reason: Mild Pain or Fever > 100.5 Last Admin: 06/20/23 17:02 Dose: 650 mg Hydrocodone Bitart/Acetaminophen (Hydrocodone/Apap 5-325mg 1 Each Tab) 1 each PO Q6HR PRN PRN Reason: Pain Last Admin: 06/20/23 07:00 Dose: 1 each Carvedilol (Carvedilol 3.125 Mg Tab) 3.125 mg PO BID-W/MEALS [facility] Last Admin: 06/21/23 06:49 Dose: 3.125 mg Cyclobenzaprine HCl (Cyclobenzaprine 5 Mg Tab) 5 mg PO Q8H PRN PRN Reason: Muscle Spasm Ergocalciferol (Ergocalciferol 1,250 Mcg (50,000 Iu) Capsule) 1,250 mcg PO Fr@0900 [facility] Sodium Chloride (Saline 0.9%) 1,000 mls @ 75 mls/hr IV .[id number] [facility] Last Admin: 06/21/23 08:29 Dose: Not Given Cefepime HCl 2 gm/ Sodium (Chloride) 100 mls @ 25 mls/hr IVPB Q8H [facility]; Protocol Last Admin: 06/21/23 11:27 Dose: 25 mls/hr Vancomycin HCl 1,500 mg/ (Sodium Chloride) 500 mls @ 167 mls/hr IVPB Q12H [facility] Last Admin: 06/21/23 16:00 Dose: 167 mls/hr Lamotrigine (Lamotrigine 100 Mg Tab) 200 mg PO BID [facility] Last Admin: 06/21/23 08:28 Dose: 200 mg Levothyroxine Sodium (Levothyroxine 88 Mcg Tab) 88 mcg PO HS [facility] Last Admin: 06/20/23 20:52 Dose: 88 mcg Naloxone HCl (Naloxone 0.4 Mg/Ml 1 Ml Vial) 0.2 mg IV Q2M PRN PRN Reason: Opioid Reversal Non-Formulary Medication (Linaclotide [Linzess]) 145 mcg PO DAILY PRN PRN Reason: Constipation Quetiapine Fumarate (Quetiapine 25 Mg Tab) 25 mg PO DAILY@0900 [facility] Last Admin: 06/21/23 08:28 Dose: 25 mg Quetiapine Fumarate (Quetiapine 100 Mg Tab) 300 mg PO HS [facility] Last Admin: 06/20/23 20:53 Dose: 300 mg Quetiapine Fumarate (Quetiapine 25 Mg Tab) 25 mg PO PC-LUNCH [facility] Last Admin: 06/21/23 16:01 Dose: 25 mg Rivaroxaban (Rivaroxaban 20 Mg Tab) 20 mg PO W/SUPPER [facility]; Protocol Last Admin: 06/20/23 17:52 Dose: 20 mg Senna (Sennosides 8.6 Mg Tab) 8.6 mg PO DAILY [facility] Last Admin: 06/21/23 08:28 Dose: 8.6 mg Sodium Chloride (Sodium Chloride Tab 1 Gm Tab) 1 gm PO BID [facility] Last Admin: 06/21/23 10:47 Dose: 1 gm Trazodone HCl (Trazodone Hcl 50 Mg Tab) 50 mg PO HS [facility] Last Admin: 06/20/23 20:53 Dose: 50 mg Past medical history to include: Iron deficiency anemia, gastric bypass, bipolar disorder, osteoarthritis, constipation possibly from narcotics. Lower back pain with surgery Social history: Prior history of prescription drug abuse. Myriam. Has been clean since 2014. Son lives at home with her. Currently at rehab at [facility] Physical examination: VITAL SIGNS: 97.9, 87, 18, 161/92, 98% room air GENERAL: Some improvement in delirium today. But not back to baseline.. EYES: Pupils equal. Conjunctiva normal. HEENT: External appearance of nose and ears normal, oral cavity grossly normal. NECK: JVD not raised HEART: First and second heart sounds are normal; no edema. LUNGS: Respiratory rate normal; clear to auscultation. ABDOMEN: Soft, nontender, liver spleen not palpable, no masses palpable. PSYCH: Some improvement delirium. Able to answer some questions MUSCULOSKELETAL:No Clubbing/cyanosis;muscles-grossly intact. OA. Some redness at the surgical incision site INVESTIGATIONS, reviewed in the clinical context: June 20: White count 6.1 hemoglobin 9.3 potassium 2.9 creatinine 0.24 Procalcitonin 0.56 June 19, 2023: Weight Silver 10.3 hemoglobin 9.8 platelets 351 sodium 134 potassium 4 creatinine 0.28 Troponin I 0.035 Urine drug screen positive for opiates, oxycodone, tricyclic antidepressant, benzodiazepines Assessment and plan: -Acute delirium metabolic encephalopathy..: Slow to respond. cut back patient [place] to 5. Seroquel dose adjusted to 20 5 in the morning and afternoon and 300 mg cutback at night - lumbar surgery in March with Dr. Flores. Possible incision infection: Slow to respond IV vancomycin, IV cefepime. Plan for I&D tomorrow. I think juancarlos were removed -Essential hypertension, Coreg 3.125 mg twice daily - vertebral body compression fracture which is reported to be new from March 31. Patient had a fall 2 weeks ago when her dog and ran into her at home. Open treatment of T9 fracture with reduction. T6-T10 instrumented post lateral fusion. With stabilization. Decompressive laminectomy. Etc. with Dr. Flores May 16, [address] Flores -Chronic pulmonary embolism. March 2023 Xarelto - gait dysfunction following surgery. rehab Does use a walker -Bipolar disorder: Seen by psychiatry this admission. Changed Seroquel to 300 mg nightly. Seroquel changed to 20 5 in the morning an d afternoon -Hypothyroid Synthroid 88 g a day -Full code Continue IV cefepime IV vancomycin. Dose of Seroquel changed by psychiatry. Plan for I&D tomorrow. IV fluids changed to LR. Past Medical History Past Medical History: No Reported History Additional Past Medical History / Comment(s): IRON DEFICIENCY ANEMIA. History of Any Multi-Drug Resistant Organisms: None Reported Past Surgical History: Back Surgery, Bariatric Surgery, Orthopedic Surgery Additional Past Surgical History / Comment(s): right shoulder, left shoulder, gastric bypass Past Anesthesia/Blood Transfusion Reactions: No Reported Reaction Past Psychological History: Anxiety, Bipolar, Depression Smoking Status: Never smoker Past Alcohol Use History: Abuse Past Drug Use History: Prescription Drug Abuse
[2023-06-21] MEDS: LACTATED RINGERS 1,000 ML IV SCH (17:22)
[2023-06-21] MEDS: POTASSIUM CHLORIDE ER 20 MEQ TAB.ER PO SCH (17:23)
[2023-06-22 07:40] LABS: Basophils % (A) 0 %; Eosinophils # (A) 0.1 k/uL (0-0.7); Eosinophils % (A) 2 %; HCT 28.2 % (34.0-46.0); HGB 8.7 gm/dL (11.4-16.0); Hypochromasia Marked; Lymphocytes # (A) 0.6 k/uL (1.0-4.8); Lymphocytes % (A) 8 %; MCHC 30.9 g/dL (31.0-37.0); MCV 96.9 fL (80.0-100.0); Mean Platelet Volume 8.1; Monocytes # (A) 0.5 k/uL (0-1.0); Monocytes % (A) 7 %; Neutrophils # (A) 6.2 k/uL (1.3-7.7); Neutrophils % (A) 83 %; Platelet Count 337 k/uL (150-450); RBC 2.91 m/uL (3.80-5.40); RDW 15.6 % (11.5-15.5); WBC 7.4 k/uL (3.8-10.6)
[2023-06-22 08:00] LABS: African American GFR (CKD) >90 (>60 ml/min/1.73 sqM); Anion Gap 3 mmol/L; Blood Urea Nitrogen 7 mg/dL (7-17); Calcium 8.4 mg/dL (8.4-10.2); Carbon Dioxide 22 mmol/L (22-30); Chloride 108 mmol/L (98-107); Glucose 93 mg/dL (74-99); Non-African American GFR(CKD) >90 (>60 ml/min/1.73 sqM); Potassium 4.4 mmol/L (3.5-5.1); Sodium 133 mmol/L (137-145)
--- NOTE | 2023-06-22 10:28 | P.PN ---
Subjective Progress Note Date: 06/22/23 Principal diagnosis: Delirium, previous thoracolumbar surgeries Patient was evaluated today at bedside, utilizing soft restraints. Discussed with nursing prior to seeing patient, she remains confused, improved since initial admission. She was unable to answer any my questions today at bedside, HPI and ROS was not achievable. Objective - Vital Signs Vital signs: Vital Signs Temp 98.4 F 06/22/23 07:47 Pulse 70 06/22/23 07:47 Resp 16 06/22/23 07:47 BP 148/95 06/22/23 07:47 Pulse Ox 97 06/22/23 08:37 FiO2 Intake & Output 06/21/23 06/22/23 06/22/23 18:59 06:59 18:59 Output Total 450 1400 Balance -450 -1400 Output: Urine 450 1400 Straight 1400 Other: Voiding Method Diaper Diaper Diaper Incontinent Incontinent Incontinent # Voids 3 # Bowel Movements 3 - Exam Physical exam continues to be very difficult due to her current mental state. Patient was moving all extremities with no difficulty. Her hands are padded for protection at this time. Optifoam dressing is in good position, there is some drainage noted on the bandage. - Labs CBC & Chem 7: 06/22/23 06:58 06/22/23 06:58 Labs: Abnormal Lab Results - Last 24 Hours (Table) 06/21/23 06/21/23 06/21/23 Range/Units 12:12 12:12 12:12 RBC 3.11 L (3.80-5.40) m/uL Hgb 9.3 L (11.4-16.0) gm/dL Hct 30.9 L (34.0-46.0) % MCHC 30.0 L (31.0-37.0) g/dL RDW 15.7 H (11.5-15.5) % Lymphocytes # 0.4 L (1.0-4.8) k/uL Sodium 135 L (137-145) mmol/L Potassium 2.9 L (3.5-5.1) mmol/L Chloride 109 H (98-107) mmol/L Carbon Dioxide 21 L (22-30) mmol/L Creatinine 0.25 L 0.24 L (0.52-1.04) mg/dL 06/22/23 06/22/23 Range/Units 06:58 06:58 RBC 2.91 L (3.80-5.40) m/uL Hgb 8.7 L (11.4-16.0) gm/dL Hct 28.2 L (34.0-46.0) % MCHC 30.9 L (31.0-37.0) g/dL RDW 15.6 H (11.5-15.5) % Lymphocytes # 0.6 L (1.0-4.8) k/uL Sodium 133 L (137-145) mmol/L Potassium (3.5-5.1) mmol/L Chloride 108 H (98-107) mmol/L Carbon Dioxide (22-30) mmol/L Creatinine 0.26 L (0.52-1.04) mg/dL Microbiology - Last 24 Hours (Table) 06/19/23 17:24 Blood Culture - Preliminary Blood Assessment and Plan Assessment: History of previous [id number] decompression and fusion History of fall resulting in T9 burst fracture, status post T6-T10 posterior stabilization and ORIF at T9 (05/15/2023) Cellulitis thoracic incision Altered mental status Grave debility Multiple medical comorbidities Plan: Surgery that was scheduled for today has been rescheduled for 06/23/2023 due to OR timing and availability Patient's sed rate is normal at this time, CRP was elevated. Patient's had a normal white count. Due to the drainage this far out from the surgery incision with irrigation and debridement is warranted. Both internal medicine and infectious disease are following at this time, their recommendations are appreciated GI and DVT prophylaxis per primary medical service Avoid narcotics at this time due to current mental state Patient remains on IV antibiotics N.p.o. after midnight Will continue to follow during hospital stay Time with Patient: Less than 30
--- NOTE | 2023-06-22 16:41 | P.PN ---
Progress Note - Text Progress Note Date: 06/22/23 Chief Complaint: Increasing confusion This is a pleasant 68-year-old patient, follows with Dr. Malik Beyer. Patient on 03/31/2023 underwent lower back surgery by Dr. Flores. Rather extensive surgery. Following that patient was discharged to [facility] for rehab. Patient then readmitted from April 13 through April 17. Was found to have pulmonary embolism. discharged to [facility]. Readmitted May 13 been having falls. Some low back pain. This morning patient was on the toilet and she fell down hitting the head. Did not pass out. Cervical collar was placed. CT scans of brain unremarkable. She been having some weakness of the lower extremity. Apparently at home the dog ran into her and she had fallen on her left side. She is also having trouble getting out of bed. Has been using a walker. No change in bowel or urine pattern. No fever or chills. Orthopedics/Dr. Flores was consulted Per son Jeronimo: Patient had stopped taking her Xarelto since she left [facility]. She has signed herself out AMA within 24 hours. Left AMA. Patient was resumed on Xarelto chest CT was negative for PE. Patient subsequently discharged to rehab on May 23.. Patient now presents with increasing confusion. Rather delirious. Cannot really pin down the history. No fever reported. Patient has some low back pain. June 19: Patient remains a bit delirious. Did take her medications. Decreased oral intake. Being followed by ID. On IV cefepime and vancomycin. Patient seen by NUMERICAL CONTROL NESTING OPERATOR from Dr. Flores's team. At this point continue with antibiotics. No other intervention for them. June 20: Patient a bit less delirious today. Continues on IV cefepime and vancomycin. Patient being scheduled for I&D for tomorrow. Patient seen by psychiatry. Dose of Seroquel was cut back. Ativan discontinued. Sleep cycle discussed with the nurse. Patient did eat some food. June 21: Some delirium still present. ID has been postponed for tomorrow. Psychiatry did adjust medications. Yesterday. Remains on IV antibiotics. Oral intake variable. Active Medications Acetaminophen (Acetaminophen Tab 325 Mg Tab) 650 mg PO Q6HR PRN PRN Reason: Mild Pain or Fever > 100.5 Last Admin: 06/22/23 08:47 Dose: 650 mg Hydrocodone Bitart/Acetaminophen (Hydrocodone/Apap 5-325mg 1 Each Tab) 1 each PO Q6HR PRN PRN Reason: Pain Last Admin: 06/20/23 07:00 Dose: 1 each Carvedilol (Carvedilol 3.125 Mg Tab) 3.125 mg PO BID-W/MEALS [facility] Last Admin: 06/22/23 06:44 Dose: 3.125 mg Cyclobenzaprine HCl (Cyclobenzaprine 5 Mg Tab) 5 mg PO Q8H PRN PRN Reason: Muscle Spasm Ergocalciferol (Ergocalciferol 1,250 Mcg (50,000 Iu) Capsule) 1,250 mcg PO Fr@0900 [facility] Cefepime HCl 2 gm/ Sodium (Chloride) 100 mls @ 25 mls/hr IVPB Q8H [facility]; Protocol Last Admin: 06/22/23 10:30 Dose: 25 mls/hr Vancomycin HCl 1,500 mg/ (Sodium Chloride) 500 mls @ 167 mls/hr IVPB Q12H [facility] Last Admin: 06/22/23 13:18 Dose: 167 mls/hr Lactated Ringer's (Lactated Ringers) 1,000 mls @ 125 mls/hr IV .Q8H [facility] Last Admin: 06/22/23 05:19 Dose: Not Given Lamotrigine (Lamotrigine 100 Mg Tab) 200 mg PO BID [facility] Last Admin: 06/22/23 10:33 Dose: 200 mg Levothyroxine Sodium (Levothyroxine 88 Mcg Tab) 88 mcg PO [facility] Last Admin: 06/21/23 21:48 Dose: 88 mcg Miscellaneous Information (Vancomycin Trough Due 1 Each Misc) 0 each MISCELLANE DIRECTED ONE Stop: 06/23/23 10:01 Naloxone HCl (Naloxone 0.4 Mg/Ml 1 Ml Vial) 0.2 mg IV Q2M PRN PRN Reason: Opioid Reversal Non-Formulary Medication (Linaclotide [Linzess]) 145 mcg PO DAILY PRN PRN Reason: Constipation Quetiapine Fumarate (Quetiapine 25 Mg Tab) 25 mg PO DAILY@0900 [facility] Last Admin: 06/22/23 08:48 Dose: 25 mg Quetiapine Fumarate (Quetiapine 100 Mg Tab) 300 mg PO [facility] Last Admin: 06/21/23 21:48 Dose: 300 mg Quetiapine Fumarate (Quetiapine 25 Mg Tab) 25 mg PO PC-LUNCH [facility] Last Admin: 06/22/23 12:12 Dose: 25 mg Rivaroxaban (Rivaroxaban 20 Mg Tab) 20 mg PO W/SUPPER [facility]; Protocol Last Admin: 06/22/23 11:17 Dose: Not Given Senna (Sennosides 8.6 Mg Tab) 8.6 mg PO DAILY [facility] Last Admin: 06/22/23 10:16 Dose: Not Given Sodium Chloride (Sodium Chloride Tab 1 Gm Tab) 1 gm PO BID [facility] Last Admin: 06/22/23 10:33 Dose: 1 gm Trazodone HCl (Trazodone Hcl 50 Mg Tab) 50 mg PO [facility] Last Admin: 06/21/23 21:47 Dose: 50 mg Past medical history to include: Iron deficiency anemia, gastric bypass, bipolar disorder, osteoarthritis, constipation possibly from narcotics. Lower back pain with surgery Social history: Prior history of prescription drug abuse. [place]. Has been clean since 2014. Son lives at home with her. Currently at rehab at [facility] Physical examination: VITAL SIGNS: 98.6, 86, 18, 1 4889, 96% room air GENERAL: Still has some delirium present EYES: Pupils equal. Conjunctiva normal. HEENT: External appearance of nose and ears normal, oral cavity grossly normal. NECK: JVD not raised HEART: First and second heart sounds are normal; no edema. LUNGS: Respiratory rate normal; clear to auscultation. ABDOMEN: Soft, nontender, liver spleen not palpable, no masses palpable. PSYCH: Some delirium still present MUSCULOSKELETAL:No Clubbing/cyanosis;muscles-grossly intact. OA. Some redness at the surgical incision site INVESTIGATIONS, reviewed in the clinical context: June 21: White count 7.4 hemoglobin 8.7 potassium 4.4 creatinine 0.26 June 20: White count 6.1 hemoglobin 9.3 potassium 2.9 creatinine 0.24 Procalcitonin 0.56 June 19, 2023: Weight Silver 10.3 hemoglobin 9.8 platelets 351 sodium 134 potassium 4 creatinine 0.28 Troponin I 0.035 Urine drug screen positive for opiates, oxycodone, tricyclic antidepressant, benzodiazepines Assessment and plan: -Acute delirium metabolic encephalopathy..: Slow to respond. cut back patient [place] to 5. Seroquel dose adjusted to 25 mg in the morning and afternoon and 300 mg cutback at night-Per psychiatry - lumbar surgery in March with Dr. Flores. Possible incision infection: Slow to respond IV vancomycin, IV cefepime. I&D's postponed to tomorrow -Essential hypertension, Coreg 3.125 mg twice daily - vertebral body compression fracture which is reported to be new from March 31. Patient had a fall 2 weeks ago when her dog and ran into her at home. Open treatment of T9 fracture with reduction. T6-T10 instrumented post lateral fusion. With stabilization. Decompressive laminectomy. Etc. with Dr. Qiu on May 16, [address] Flores -Chronic pulmonary embolism. March 2023 Xarelto - gait dysfunction following surgery. rehab Does use a walker -Bipolar disorder: Seen by psychiatry this admission. Changed Seroquel to 300 mg nightly. Seroquel changed to 20 5 in the morning and afternoon -Hypothyroid Synthroid 88 g a day -Full code IV cefepime IV vancomycin. Other medications to continue. Change IV fluids to D5.45. Past Medical History Past Medical History: No Reported History Additional Past Medical History / Comment(s): IRON DEFICIENCY ANEMIA. History of Any Multi-Drug Resistant Organisms: None Reported Past Surgical History: Back Surgery, Bariatric Surgery, Orthopedic Surgery Additional Past Surgical History / Comment(s): right shoulder, left shoulder, gastric bypass Past Anesthesia/Blood Transfusion Reactions: No Reported Reaction Past Psychological History: Anxiety, Bipolar, Depression Smoking Status: Never smoker Past Alcohol Use History: Abuse Past Drug Use History: Prescription Drug Abuse
[2023-06-22] MEDS: DEXTROSE 5%-0.45% NACL 1,000 ML IV SCH (18:43)
--- NOTE | 2023-06-23 09:27 | P.PN ---
Progress Note - Text Progress Note Date: 06/23/23 Patient seen and examined this morning. Patient remains pleasantly confused. She has been nothing by mouth since midnight for surgical procedure of Thoracolumbar irrigation and debridement. Consent for surgery has been obtained by nursing via phone with her son, Jeronimo. No acute concerns at this time.
[2023-06-23 11:32] LABS: African American GFR (CKD) >90 (>60 ml/min/1.73 sqM); Non-African American GFR(CKD) >90 (>60 ml/min/1.73 sqM)
[2023-06-23] MEDS: VANCOMYCIN TROUGH DUE 1 EACH MISC MISCELLANE ONE (13:31)
--- NOTE | 2023-06-23 14:55 | P.PN ---
Subjective Progress Note Date: 06/23/23 Principal diagnosis: Reason for follow-up is cellulitis to the thoracic spine incision Patient is a 68-year-old female who recently did have T9 burst fracture and the patient is status post open treatment of T9 fracture with extensive surgery to the T6-T10 spine, patient has been brought back to the hospital concerning for mental status changing and confusion. On today's visit that is 06/23/2023,the patient is more awake and alert today denies any fever or any chills, patient is breathing comfortably on room air, the patient denies chest pain shortness of breath and no significant cough, patient denies abdominal pain, no nausea vomiting or diarrhea, denies any worsening pain to the upper back. Patient did have a creatinine 0.22 Vanco trough is 14.6 blood cultures pending Objective - Vital Signs Vital signs: Vital Signs Temp 98.1 F 06/23/23 07:06 Pulse 96 06/23/23 07:06 Resp 19 06/23/23 07:06 BP 163/99 06/23/23 07:06 Pulse Ox 97 06/23/23 07:06 FiO2 Intake & Output 06/22/23 06/23/23 06/23/23 18:59 06:59 18:59 Intake Total 180 Output Total 503 0 Balance -503 -1870 Intake: Oral 180 Output: Urine 500 2049 Straight 500 Stool 3 Other: Voiding Method Diaper Indwelling Catheter Incontinent # Bowel Movements 1 1 - Exam GENERAL DESCRIPTION: An elderly female lying in bed in no distress RESPIRATORY SYSTEM: Unlabored breathing , decreased breath sounds at bases HEART: S1 S2 regular rate and rhythm , ABDOMEN: Soft , no tenderness Erythema to the thoracic spine incision decreased compared to yesterday juancarlos are still intact - Labs CBC & Chem 7: 06/22/23 06:58 06/23/23 10:52 Labs: Microbiology - Last 24 Hours (Table) 06/19/23 17:24 Blood Culture - Preliminary Blood Assessment and Plan (1) Surgical site infection Current Visit: Yes Status: Acute Code(s): T81.49XA - INFECTION FOLLOWING A PROCEDURE, OTHER SURGICAL SITE, INIT SNOMED Code(s): 72850600 Plan: 1-patient presenting to the hospital with increasing confusion in this patient who recently did have extensive thoracic spine surgery after a T9 burst fracture patient did have cellulitis to the surgical site unclear examination could be th e likely source of this confusion as the patient did have a negative chest x-ray UA was not significantly positive abdominal soft rectal examination 2-cultures are currently pending 3-patient to continue the patient on vancomycin and cefepime, awaiting surgery this afternoon which has been rescheduled from yesterday Dictation was produced using [employer] dictation software. please excuse any grammatical, word or spelling errors. Time with Patient: Less than 30
--- NOTE | 2023-06-23 14:55 | P.PN ---
Subjective Progress Note Date: 06/22/23 Principal diagnosis: Reason for follow-up is cellulitis to the thoracic spine incision Patient is a 68-year-old female who recently did have T9 burst fracture and the patient is status post open treatment of T9 fracture with extensive surgery to the T6-T10 spine, patient has been brought back to the hospital concerning for mental status changing and confusion. On today's visit that is 06/22/2023, Patient is afebrile patient is currently on room air patient has been complaining of discomfort associated with being cleaned by the nursing staff however did not provide any other history no vomiting or diarrhea has been reported Patient white count is, creatinine 0.26, blood pressure for pending Objective - Vital Signs Vital signs: Vital Signs Temp 98.4 F 06/22/23 07:47 Pulse 70 06/22/23 07:47 Resp 16 06/22/23 07:47 BP 148/95 06/22/23 07:47 Pulse Ox 97 06/22/23 08:37 FiO2 Intake & Output 06/21/23 06/22/23 06/22/23 18:59 06:59 18:59 Output Total 450 1400 Balance -450 -1400 Output: Urine 450 1400 Straight 1400 Other: Voiding Method Diaper Diaper Diaper Incontinent Incontinent Incontinent # Voids 3 # Bowel Movements 3 - Exam GENERAL DESCRIPTION: An elderly female lying in bed in no distress RESPIRATORY SYSTEM: Unlabored breathing , decreased breath sounds at bases HEART: S1 S2 regular rate and rhythm , ABDOMEN: Soft , no tenderness Erythema to the thoracic spine incision decreased compared to yesterday juancarlos are still intact - Labs CBC & Chem 7: 06/22/23 06:58 06/23/23 10:52 Labs: Abnormal Lab Results - Last 24 Hours (Table) 06/21/23 06/21/23 06/21/23 Range/Units 12:12 12:12 12:12 RBC 3.11 L (3.80-5.40) m/uL Hgb 9.3 L (11.4-16.0) gm/dL Hct 30.9 L (34.0-46.0) % MCHC 30.0 L (31.0-37.0) g/dL RDW 15.7 H (11.5-15.5) % Lymphocytes # 0.4 L (1.0-4.8) k/uL Sodium 135 L (137-145) mmol/L Potassium 2.9 L (3.5-5.1) mmol/L Chloride 109 H (98-107) mmol/L Carbon Dioxide 21 L (22-30) mmol/L Creatinine 0.25 L 0.24 L (0.52-1.04) mg/dL 06/22/23 06/22/23 Range/Units 06:58 06:58 RBC 2.91 L (3.80-5.40) m/uL Hgb 8.7 L (11.4-16.0) gm/dL Hct 28.2 L (34.0-46.0) % MCHC 30.9 L (31.0-37.0) g/dL RDW 15.6 H (11.5-15.5) % Lymphocytes # 0.6 L (1.0-4.8) k/uL Sodium 133 L (137-145) mmol/L Potassium (3.5-5.1) mmol/L Chloride 108 H (98-107) mmol/L Carbon Dioxide (22-30) mmol/L Creatinine 0.26 L (0.52-1.04) mg/dL Microbiology - Last 24 Hours (Table) 06/19/23 17:24 Blood Culture - Preliminary Blood Assessment and Plan (1) Surgical site infection Current Visit: Yes Status: Acute Code(s): T81.49XA - INFECTION FOLLOWING A PROCEDURE, OTHER SURGICAL SITE, INIT SNOMED Code(s): 03322254 Plan: 1-patient presenting to the hospital with increasing confusion in this patient who recently did have extensive thoracic spine surgery after a T9 burst fracture patient did have cellulitis to the surgical site unclear examination could be the likely source of this confusion as the patient did have a negative chest x- ray UA was not significantly positive abdominal soft rectal examination 2-cultures are currently pending 3-patient did have improvement of erythema to the thoracic spine and will continue the patient on vancomycin and cefepime, awaiting surgery this afternoon Dictation was produced using [employer] dictation software. please excuse any gram matical, word or spelling errors. Time with Patient: Less than 30
[2023-06-23] MEDS: ceFAZolin 3,000 MG in SODIUM CHLORIDE 0.9% IRRIGATIO 3,000 ML IRRIGATION ONE ×2 (15:36→18:25)
[2023-06-23] MEDS: VANCOMYCIN 1,000 MG VIAL MISCELLANE ONE ×2 (15:37→18:25)
[2023-06-23] MEDS: IV FLUID CONTINUATION 1,000 ML IV ONE (16:20)
[2023-06-23 16:34] LABS: Glucose,Whole Blood 105 mg/dL (70-110)
--- NOTE | 2023-06-23 17:29 | P.PN ---
Progress Note - Text Progress Note Date: 06/23/23 Chief Complaint: Increasing confusion This is a pleasant 68-year-old patient, follows with Dr. Malik Beyer. Patient on 03/31/2023 underwent lower back surgery by Dr. Flores. Rather extensive surgery. Following that patient was discharged to [facility] for rehab. Patient then readmitted from April 13 through April 17. Was found to have pulmonary embolism. discharged to [facility]. Readmitted May 13 been having falls. Some low back pain. This morning patient was on the toilet and she fell down hitting the head. Did not pass out. Cervical collar was placed. CT scans of brain unremarkable. She been having some weakness of the lower extremity. Apparently at home the dog ran into her and she had fallen on her left side. She is also having trouble getting out of bed. Has been using a walker. No change in bowel or urine pattern. No fever or chills. Orthopedics/Dr. Flores was consulted Per son Jeronimo: Patient had stopped taking her Xarelto since she left [facility]. She has signed herself out AMA within 24 hours. Left AMA. Patient was resumed on Xarelto chest CT was negative for PE. Patient subsequently discharged to rehab on May 23.. Patient now presents with increasing confusion. Rather delirious. Cannot really pin down the history. No fever reported. Patient has some low back pain. June 19: Patient remains a bit delirious. Did take her medications. Decreased oral intake. Being followed by ID. On IV cefepime and vancomycin. Patient seen by CIGARETTE MACHINE FILLER from Dr. Flores's team. At this point continue with antibiotics. No other intervention for them. June 20: Patient a bit less delirious today. Continues on IV cefepime and vancomycin. Patient being scheduled for I&D for tomorrow. Patient seen by psychiatry. Dose of Seroquel was cut back. Ativan discontinued. Sleep cycle discussed with the nurse. Patient did eat some food. June 21: Some delirium still present. ID has been postponed for tomorrow. Psychiatry did adjust medications. Yesterday. Remains on IV antibiotics. Oral intake variable. June 22: Patient more awake but continues to be delirious. Will answer occasional questions. Patient was taken down for I&D earlier today. Remains on IV cefepime and vancomycin. Did call 3 [address]. to see if the on-call psychiatrist could reevaluate the patient. In the meantime we will change the morning dose of Seroquel to 50 mg in p.m. dose to 400. Active Medications Acetaminophen (Acetaminophen Tab 325 Mg Tab) 650 mg PO Q6HR PRN PRN Reason: Mild Pain or Fever > 100.5 Last Admin: 06/22/23 08:47 Dose: 650 mg Hydrocodone Bitart/Acetaminophen (Hydrocodone/Apap 5-325mg 1 Each Tab) 1 each PO Q6HR PRN PRN Reason: Pain Last Admin: 06/20/23 07:00 Dose: 1 each Carvedilol (Carvedilol 3.125 Mg Tab) 3.125 mg PO BID-W/MEALS [facility] Last Admin: 06/23/23 08:50 Dose: 3.125 mg Cyclobenzaprine HCl (Cyclobenzaprine 5 Mg Tab) 5 mg PO Q8H PRN PRN Reason: Muscle Spasm Ergocalciferol (Ergocalciferol 1,250 Mcg (50,000 Iu) Capsule) 1,250 mcg PO Fr@0900 [facility] Cefepime HCl 2 gm/ Sodium (Chloride) 100 mls @ 25 mls/hr IVPB Q8H [facility]; Protocol Last Admin: 06/23/23 10:18 Dose: 25 mls/hr Vancomycin HCl 1,500 mg/ (Sodium Chloride) 500 mls @ 167 mls/hr IVPB Q12H [facility] Last Admin: 06/23/23 14:22 Dose: 167 mls/hr Dextrose/Sodium Chloride (Dextrose 5%-1/2ns Iv Soln) 1,000 mls @ 125 mls/hr IV .Q8H [facility] Last Admin: 06/23/23 08:53 Dose: 125 mls/hr Lamotrigine (Lamotrigine 100 Mg Tab) 200 mg PO BID [facility] Last Admin: 06/23/23 10:18 Dose: 200 mg Levothyroxine Sodium (Levothyroxine 88 Mcg Tab) 88 mcg PO HS [facility] Last Admin: 06/22/23 20:41 Dose: 88 mcg Naloxone HCl (Naloxone 0.4 Mg/Ml 1 Ml Vial) 0.2 mg IV Q2M PRN PRN Reason: Opioid Reversal Non-Formulary Medication (Linaclotide [Linzess]) 145 mcg PO DAILY PRN PRN Reason: Constipation Quetiapine Fumarate (Quetiapine 25 Mg Tab) 50 mg PO DAILY@0900 [facility] Quetiapine Fumarate (Quetiapine 100 Mg Tab) 400 mg PO [facility] Rivaroxaban (Rivaroxaban 20 Mg Tab) 20 mg PO W/SUPPER [facility]; Protocol Last Admin: 06/22/23 11:17 Dose: Not Given Senna (Sennosides 8.6 Mg Tab) 8.6 mg PO DAILY [facility] Last Admin: 06/23/23 11:15 Dose: Not Given Sodium Chloride (Sodium Chloride Tab 1 Gm Tab) 1 gm PO BID [facility] Last Admin: 06/23/23 13:31 Dose: Not Given Trazodone HCl (Trazodone Hcl 50 Mg Tab) 50 mg PO [facility] Last Admin: 06/22/23 20:41 Dose: 50 mg Past medical history to include: Iron deficiency anemia, gastric bypass, bipolar disorder, osteoarthritis, constipation possibly from narcotics. Lower back pain with surgery Social history: Prior history of prescription drug abuse. [place]. Has been clean since 2014. Son lives at home with her. Currently at rehab at [facility] Physical examination: VITAL SIGNS: 99.3, 90, 16, 170/91, 97% room air GENERAL: Delirious. EYES: Pupils equal. Conjunctiva normal. HEENT: External appearance of nose and ears normal, oral cavity grossly normal. NECK: JVD not raised HEART: First and second heart sounds are normal; no edema. LUNGS: Respiratory rate normal; clear to auscultation. ABDOMEN: Soft, nontender, liver spleen not palpable, no masses palpable. PSYCH: Delirium present. Also keeps talking to herself. MUSCULOSKELETAL:No Clubbing/cyanosis;muscles-grossly intact. OA. Some redness at the surgical incision site INVESTIGATIONS, reviewed in the clinical context: June 21: White count 7.4 hemoglobin 8.7 potassium 4.4 creatinine 0.26 June 20: White count 6.1 hemoglobin 9.3 potassium 2.9 creatinine 0.24 Procalcitonin 0.56 June 19, 2023: Weight Silver 10.3 hemoglobin 9.8 platelets 351 sodium 134 potassium 4 creatinine 0.28 Troponin I 0.035 Urine drug screen positive for opiates, oxycodone, tricyclic antidepressant, benzodiazepines Assessment and plan: -Acute delirium metabolic encephalopathy..: Slow to respond. cut back patient [place] to 5. Seroquel dose increased to 50 mg in the morning. Stop the afternoon dose. Increase p.m. dose to 400 mg. - lumbar surgery in March with Dr. Flores. Possible incision infection: Slow to respond IV vancomycin, IV cefepime. I&D's by Dr. Flores today. June 22. -Essential hypertension, uncontrolled Increase Coreg 6.25 mg twice daily - vertebral body compression fracture which is reported to be new from March 31. Patient had a fall 2 weeks ago when her dog and ran into her at home. Open treatment of T9 fracture with reduction. T6-T10 instrumented post lateral fusion. With stabilization. Decompressive laminectomy. Etc. with Dr. Flores May 16, [address] Flores -Chronic pulmonary embolism. March 2023 Xarelto - gait dysfunction following surgery. rehab Does use a walker -Bipolar disorder: Seen by psychiatry this admission. Changed Seroquel to 300 mg nightly. Seroquel changed to 20 5 in the morning and afternoon -Hypothyroid Synthroid 88 g a day Check TSH -Full code IV cefepime IV vancomycin. I&D done today. Increase Coreg to 6.25 twice daily. Check TSH. Adjust dose of Seroquel as above. Past Medical History Past Medical History: No Reported History Additional Past Medical History / Comment(s): IRON DEFICIENCY ANEMIA. History of Any Multi-Drug Resistant Organisms: None Reported Past Surgical History: Back Surgery, Bariatric Surgery, Orthopedic Surgery Additional Past Surgical History / Comment(s): right shoulder, left shoulder, gastric bypass Past Anesthesia/Blood Transfusion Reactions: No Reported Reaction Past Psychological History: Anxiety, Bipolar, Depression Smoking Status: Never smoker Past Alcohol Use History: Abuse Past Drug Use History: Prescription Drug Abuse
[2023-06-23] MEDS ORDERED: fentaNYL (PF) 50 MCG/ML 2 ML AMP ONE (17:39)
[2023-06-23] MEDS ORDERED: NEOSTIGMINE 1 MG/ML 10 ML VIAL ONE (17:39)
[2023-06-23] MEDS ORDERED: ROCURONIUM 10 MG/ML (5 ML VIAL) IV ONE (17:39)
[2023-06-23] MEDS ORDERED: GLYCOPYRROLATE 0.2 MG/ML 2 ML VIAL ONE (17:39)
[2023-06-23] MEDS ORDERED: PROPOFOL 10 MG/ML 20 ML VIAL IV ONE (17:39)
[2023-06-23] MEDS: LACTATED RINGERS 1,000 ML IV ONE ×2 (17:39→17:44)
[2023-06-23] MEDS ORDERED: LIDOCAINE 1% INJ 10MG/ML (20 ML MDV) ONE (17:39)
[2023-06-23] MEDS ORDERED: MAGNESIUM HYDROXIDE 2,400 MG/30 ML CUP PO PRN (18:08)
[2023-06-23] MEDS ORDERED: HYDROmorphone 0.5 MG/0.5 ML SYRINGE IVP PRN (18:08)
[2023-06-23] MEDS ORDERED: SENNOSIDES-DOCUSATE SODIUM 1 EACH TAB PO PRN (18:08)
[2023-06-23] MEDS: GENTAMICIN 80 MG in SODIUM CHLORIDE 0.9% IRRIGATIO 3,000 ML IRRIGATION ONE (18:26)
[2023-06-23] MEDS: carvediloL 6.25 MG TAB PO SCH (19:32)
[2023-06-23] MEDS: QUEtiapine 200 MG TAB PO SCH (21:11)
[2023-06-24 06:57] LABS: African American GFR (CKD) >90 (>60 ml/min/1.73 sqM); Anion Gap 6 mmol/L; Blood Urea Nitrogen 3 mg/dL (7-17); Calcium 8.3 mg/dL (8.4-10.2); Carbon Dioxide 19 mmol/L (22-30); Chloride 109 mmol/L (98-107); Glucose 91 mg/dL (74-99); Non-African American GFR(CKD) >90 (>60 ml/min/1.73 sqM); Potassium 3.1 mmol/L (3.5-5.1); Sodium 134 mmol/L (137-145)
[2023-06-24 06:59] LABS: Basophils % (A) 0 %; Eosinophils # (A) 0.3 k/uL (0-0.7); Eosinophils % (A) 3 %; HGB 9.5 gm/dL (11.4-16.0); Hypochromasia Slight; Lymphocytes # (A) 0.5 k/uL (1.0-4.8); Lymphocytes % (A) 7 %; MCH 30.6 pg (25.0-35.0); MCHC 32.6 g/dL (31.0-37.0); MCV 93.9 fL (80.0-100.0); Mean Platelet Volume 7.8; Monocytes # (A) 0.8 k/uL (0-1.0); Monocytes % (A) 11 %; Neutrophils # (A) 5.8 k/uL (1.3-7.7); Neutrophils % (A) 78 %; RBC 3.09 m/uL (3.80-5.40); RDW 15.8 % (11.5-15.5); WBC 7.4 k/uL (3.8-10.6)
[2023-06-24 07:34] LABS: Platelet Count 405 k/uL (150-450)
[2023-06-24] MEDS: HYDROcodone/APAP 10-325MG 1 EACH TAB PO PRN (08:11)
--- NOTE | 2023-06-24 09:25 | P.PN ---
Subjective Progress Note Date: 06/24/23 Principal diagnosis: History of previous [id number] decompression and fusion History of fall resulting in T9 burst fracture, status post T6-T10 posterior stabilization and ORIF at T9 (05/15/2023) Altered mental status Grave debility Multiple medical comorbidities Patient seen and examined this morning. Patient is resting in bed. Patient does present with facial grimacing, medication is being provided for pain management. Dressing to the thoracic spine is clean dry and intact with wound VAC intact and patent. Patient remains confused and is unable to answer questions at this time. Weiss catheter is present and patent with clear yellow urine. Patient is in brief due to stool incontinence. No acute concerns at this time. Objective - Vital Signs Vital signs: Vital Signs Temp 97.5 F L 06/24/23 01:23 Pulse 79 06/24/23 01:23 Resp 16 06/24/23 01:23 BP 136/83 06/24/23 06:28 Pulse Ox 97 06/24/23 01:23 FiO2 Intake & Output 06/23/23 06/24/23 06/24/23 18:59 06:59 18:59 Intake Total 502 0 Output Total 1055 0 Balance -553 -2049 Intake: IV 502 0 Output: Urine 1050 2049 Estimated Blood Loss 5 Other: Voiding Method Indwelling Catheter Indwelling Catheter # Bowel Movements 2 3 - Exam Physical Examination General: The patient remains confused and unable to answer questions at this time, in no acute distress Skin: Skin is warm and dry with small bruise noted on left lateral thigh, Surgical incision to the thoracic spine with Prevana wound vac present Limited exam due to patients altered mentation - Labs CBC & Chem 7: 06/24/23 06:01 06/24/23 06:01 Labs: Abnormal Lab Results - Last 24 Hours (Table) 06/23/23 06/24/23 06/24/23 Range/Units 10:52 06:01 06:01 RBC 3.09 L (3.80-5.40) m/uL Hgb 9.5 L (11.4-16.0) gm/dL Hct 29.0 L (34.0-46.0) % RDW 15.8 H (11.5-15.5) % Lymphocytes # 0.5 L (1.0-4.8) k/uL Sodium 134 L (137-145) mmol/L Potassium 3.1 L (3.5-5.1) mmol/L Chloride 109 H (98-107) mmol/L Carbon Dioxide 19 L (22-30) mmol/L BUN 3 L (7-17) mg/dL Creatinine 0.22 L 0.22 L (0.52-1.04) mg/dL Calcium 8.3 L (8.4-10.2) mg/dL Microbiology - Last 24 Hours (Table) 06/19/23 17:24 Blood Culture - Preliminary Blood Assessment and Plan Assessment: Post Op Day 1: Thoracolumbar irrigation and debridement 1. Thoracolumbar wound dehiscence 2. History of previous Q23utcoxy decompression and fusion 3. History of fall resulting in T9 burst fracture, status post T6-T10 posterior stabilization and ORIF at T9 (05/15/2023) 4. Altered mental status 5. Grave debility 6. Multiple medical comorbidities Plan: -Appreciate center lead consultant and team management. -Activity: Daily PT/OT, increase ambulation strength and balance. -Pain control: Adequate at this time -Meds: reviewed -GI ppx: senna, Miralax -DC weiss when up and about, bedside commode if needed -DVT PPX: OK to restart Xarelto tonight. -Hygiene: Shower today. Maintain dressing clean and dry. Meticulous cleaning after BMs away from the incision site -Wound Vac: Maintain for now. -Encourage IS 10x/hr -Dispo: Clincally pending *I reviewed and discussed this case with my attending Dr. Flores, whom has reviewed this chart and films and is in agreement with assessment and plan of care as outlined above. I have personally seen and examined the patient, performed the documentation and the assessment and plan as written. Number of minutes spent on the visit: 20m.
[2023-06-24] MEDS: QUEtiapine 50 MG TAB PO SCH (10:17)
--- NOTE | 2023-06-24 18:20 | P.PN ---
Progress Note - Text Progress Note Date: 06/24/23 Chief Complaint: Increasing confusion This is a pleasant 68-year-old patient, follows with Dr. Malik Beyer. Patient on 03/31/2023 underwent lower back surgery by Dr. Flores. Rather extensive surgery. Following that patient was discharged to [facility] for rehab. Patient then readmitted from April 13 through April 17. Was found to have pulmonary embolism. discharged to [facility]. Readmitted May 13 been having falls. Some low back pain. This morning patient was on the toilet and she fell down hitting the head. Did not pass out. Cervical collar was placed. CT scans of brain unremarkable. She been having some weakness of the lower extremity. Apparently at home the dog ran into her and she had fallen on her left side. She is also having trouble getting out of bed. Has been using a walker. No change in bowel or urine pattern. No fever or chills. Orthopedics/Dr. Flores was consulted Per son Jeronimo: Patient had stopped taking her Xarelto since she left [facility]. She has signed herself out AMA within 24 hours. Left AMA. Patient was resumed on Xarelto chest CT was negative for PE. Patient subsequently discharged to rehab on May 23.. Patient now presents with increasing confusion. Rather delirious. Cannot really pin down the history. No fever reported. Patient has some low back pain. June 19: Patient remains a bit delirious. Did take her medications. Decreased oral intake. Being followed by ID. On IV cefepime and vancomycin. Patient seen by BALANCE ASSEMBLER from Dr. Flores's team. At this point continue with antibiotics. No other intervention for them. June 20: Patient a bit less delirious today. Continues on IV cefepime and vancomycin. Patient being scheduled for I&D for tomorrow. Patient seen by psychiatry. Dose of Seroquel was cut back. Ativan discontinued. Sleep cycle discussed with the nurse. Patient did eat some food. June 21: Some delirium still present. ID has been postponed for tomorrow. Psychiatry did adjust medications. Yesterday. Remains on IV antibiotics. Oral intake variable. June 22: Patient more awake but continues to be delirious. Will answer occasional questions. Patient was taken down for I&D earlier today. Remains on IV cefepime and vancomycin. Did call 3 W. to see if the on-call psychiatrist could reevaluate the patient. In the meantime we will change the morning dose of Seroquel to 50 mg in p.m. dose to 400. June 23: A bit less delirious but still present. Dose of Seroquel adjusted yesterday. TSH come back at 0.755. Possibly over replacement. Will cut back dose of Synthroid to 37.5. This might help her symptoms. Patient underwent I&D of the spinal wound yesterday. Has a Prevena wound VAC in place. Minimal output. Does not appear in much pain. Though she has a history of saying that she is in pain. Will DC [place] 10 and Dilaudid. Leave her on [place] 5. Active Medications Acetaminophen (Acetaminophen Tab 325 Mg Tab) 650 mg PO Q6HR PRN PRN Reason: Mild Pain or Fever > 100.5 Last Admin: 06/24/23 06:30 Dose: 650 mg Hydrocodone Bitart/Acetaminophen (Hydrocodone/Apap 5-325mg 1 Each Tab) 1 each PO Q6HR PRN PRN Reason: Pain Last Admin: 06/20/23 07:00 Dose: 1 each Carvedilol (Carvedilol 6.25 Mg Tab) 6.25 mg PO BID-W/MEALS BRYN Last Admin: 06/24/23 06:30 Dose: 6.25 mg Cyclobenzaprine HCl (Cyclobenzaprine 5 Mg Tab) 5 mg PO Q8H PRN PRN Reason: Muscle Spasm Ergocalciferol (Ergocalciferol 1,250 Mcg (50,000 Iu) Capsule) 1,250 mcg PO Fr@0900 [facility] Cefepime HCl 2 gm/ Sodium (Chloride) 100 mls @ 25 mls/hr IVPB Q8H [facility]; Protocol Last Admin: 06/24/23 10:24 Dose: 25 mls/hr Vancomycin HCl 1,500 mg/ (Sodium Chloride) 500 mls @ 167 mls/hr IVPB Q12H [facility] Last Admin: 06/24/23 13:21 Dose: 167 mls/hr Dextrose/Sodium Chloride (Dextrose 5%-1/2ns Iv Soln) 1,000 mls @ 125 mls/hr IV .Q8H [facility] Last Admin: 06/24/23 13:21 Dose: 125 mls/hr Lamotrigine (Lamotrigine 100 Mg Tab) 200 mg PO BID [facility] Last Admin: 06/24/23 08:02 Dose: 200 mg Levothyroxine Sodium (Levothyroxine 75 Mcg Tab) 37.5 mcg PO DAILY@0630 [facility] Magnesium Hydroxide (Magnesium Hydroxide 2,400 Mg/30 Ml Cup) 2,400 mg PO DAILY PRN PRN Reason: Constipation Naloxone HCl (Naloxone 0.4 Mg/Ml 1 Ml Vial) 0.2 mg IV Q2M PRN PRN Reason: Opioid Reversal Non-Formulary Medication (Linaclotide [Linzess]) 145 mcg PO DAILY PRN PRN Reason: Constipation Quetiapine Fumarate (Quetiapine 50 Mg Tab) 50 mg PO DAILY@0900 [facility] Last Admin: 06/24/23 10:17 Dose: 50 mg Quetiapine Fumarate (Quetiapine 200 Mg Tab) 400 mg PO [facility] Last Admin: 06/23/23 21:11 Dose: 400 mg Rivaroxaban (Rivaroxaban 20 Mg Tab) 20 mg PO W/SUPPER [facility]; Protocol Last Admin: 06/23/23 19:32 Dose: Not Given Senna (Sennosides 8.6 Mg Tab) 8.6 mg PO DAILY [facility] Last Admin: 06/24/23 08:02 Dose: 8.6 mg Sodium Chloride (Sodium Chloride Tab 1 Gm Tab) 1 gm PO BID [facility] Last Admin: 06/24/23 10:18 Dose: 1 gm Trazodone HCl (Trazodone Hcl 50 Mg Tab) 50 mg PO [facility] Last Admin: 06/23/23 21:11 Dose: 50 mg Past medical history to include: Iron deficiency anemia, gastric bypass, bipolar disorder, osteoarthritis, constipation possibly from narcotics. Lower back pain with surgery Social history: Prior history of prescription drug abuse. [place]. Has been clean since 2015. Son lives at home with her. Currently at rehab at [facility] Physical examination: VITAL SIGNS: 98.2, 82, 20, 142/82, 97% room air GENERAL: A bit less delirious. A bit more awake. EYES: Pupils equal. Conjunctiva normal. HEENT: External appearance of nose and ears normal, oral cavity grossly normal. NECK: JVD not raised HEART: First and second heart sounds are normal; no edema. LUNGS: Respiratory rate normal; clear to auscultation. ABDOMEN: Soft, nontender, liver spleen not palpable, no masses palpable. PSYCH: Delirium present. MUSCULOSKELETAL:No Clubbing/cyanosis;muscles-grossly intact. OA. Some redness at the surgical incision site INVESTIGATIONS, reviewed in the clinical context: June 23: White count 7.4 hemoglobin 9.5 potassium 3.1 creatinine 0.22 TSH 0.755 June 21: White count 7.4 hemoglobin 8.7 potassium 4.4 creatinine 0.26 June 20: White count 6.1 hemoglobin 9.3 potassium 2.9 creatinine 0.24 Procalcitonin 0.56 June 19, 2023: Weight Silver 10.3 hemoglobin 9.8 platelets 351 sodium 134 potassium 4 creatinine 0.28 Troponin I 0.035 Urine drug screen positive for opiates, oxycodone, tricyclic antidepressant, benzodiazepines Assessment and plan: -Acute delirium metabolic encephalopathy..: Slow to respond. cut back patient [place] to 5. Seroquel a.m. dose was increased to 50 mg. P.m. dose increased to 40 mg. Afternoon dose was discontinued Some over replacement of Synthroid may be contributing. Cut back dose of Synthroid. - lumbar surgery in March with Dr. Flores. Possible incision infection: IV vancomycin, IV cefepime. I&D's by Dr. Flores-. June 22. -Essential hypertension, Coreg 6.25 mg twice daily - vertebral body compression fracture which is reported to be new from March 31. Patient had a fall 2 weeks ago when her dog and ran into her at home. Open treatment of T9 fracture with reduction. T6-T10 instrumented post lateral fusion. With stabilization. Decompressive laminectomy. Etc. with Dr. Flores May 16, [address] Flores -Chronic pulmonary embolism. March 2023 Xarelto - gait dysfunction following surgery. rehab Does use a walker -Bipolar disorder: Seen by psychiatry this admission. -Hypothyroid, with some over replacement Synthroid back to 37.5 TSH low -Full code Cut back dose of Synthroid. Other medications to continue. Encourage oral intake. Past Medical History Past Medical History: No Reported History Additional Past Medical History / Comment(s): IRON DEFICIENCY ANEMIA. History of Any Multi-Drug Resistant Organisms: None Reported Past Surgical History: Back Surgery, Bariatric Surgery, Orthopedic Surgery Additional Past Surgical History / Comment(s): right shoulder, left shoulder, gastric bypass Past Anesthesia/Blood Transfusion Reactions: No Reported Reaction Past Psychological History: Anxiety, Bipolar, Depression Smoking Status: Never smoker Past Alcohol Use History: Abuse Past Drug Use History: Prescription Drug Abuse
[2023-06-25] MEDS: CYCLOBENZAPRINE 5 MG TAB PO PRN (02:20)
[2023-06-25 06:37] LABS: African American GFR (CKD) >90 (>60 ml/min/1.73 sqM); Non-African American GFR(CKD) >90 (>60 ml/min/1.73 sqM)
--- NOTE | 2023-06-25 07:20 | P.OP ---
Date of Procedure: 06/23/23 Preoperative Diagnosis: 1. WOUND ULCERATION WITH DEHISCENCE THORACIC SPINE 2. COMPLEX MEDICAL PATIENT WITH MULTIPLE RESIDENTIAL 3. BACK PAIN Postoperative Diagnosis: 1. WOUND ULCERATION WITH DEHISCENCE THORACIC SPINE 2. COMPLEX MEDICAL PATIENT WITH MULTIPLE RESIDENTIAL 3. BACK PAIN Procedure(s) Performed: 1. THORACIC WOUND INCISION AND DRAINAGE WITH IRRIGATION AND DEBRIDEMENT OF SKIN, SOFT TISSUE, MUSCLE AND BONE [id number] CM USING THE FOLLOWING: -SKIN KNIFE TO REMOVE SKIN AND NECROTIC TISSUES -CURETTE TO REMOVE NECROTIC FAT -RONGURE TO REMOVE BONE AND SPINOUS PROCESS CAUSING PRESSURE ON WOUND -3L ANCEF IRRIGATION; 3L GENTAMYCIN IRRIGATION, IRRICEPT, NSS, BETADINE IRRIGATION Implants: NONE Anesthesia: GETA Surgeon: Bertin Flores Estimated Blood Loss (ml): 50 IV fluids (ml): 500 Urine output (ml): 300 Pathology: other (CULTURES AND SPECIMINE THORACIC SPINE WOUND) Condition: stable Disposition: PACU Indications for Procedure: 68 YO FEMALE WHO UNDERWENT [id number] DECOMPRESSION AND FUSION AND SUBSEQUENTLY FELL AND FRACTURED ABOVE THIS REQUIRING EXTENSION OF FUSION AND STABILIZATION ABOVE THIS WENT TO REHAB AND HAS PRESENTED BACK NOW WITH MS CHANGES AND WOUND ULCERATION. HER POSTOPERATIVE COURSE HAS BEEN DIFFICULT WITH POSSIBLE CVA AND MULTIPLE RESIDENTIAL CAUSING HER ISSUES AFTER SURGERY. SHE HAS CONTINUED DRAINAGE FROM HER THORACIC SPINE WOUND AND ULCERATION OF HER WOUND DUE TO PRESSURE AND HER NOT MOVING AT REHAB WELL POOR CARE. SHE PRESENTS TODAY FOR SURGICAL DEBRIDEMENT OF THE WOUND. WE DISCUSSED RISKS AND BENEFITS AT LENGTH. HER AND HER SON ARE UNDERSTANDING AND ARE WILLING TO ASSUME ALL THE RISKS OF SURGERY AND ARE WILING TO PROCEED. Description of Procedure: The patient was seen and examined in the preoperative area. All preoperative protocols were followed. Informed consent was obtained risks and benefits of the procedure were discussed at length. Risks including bleeding infection damage to the surrounding tissue and risk of reoperation were discussed with the patient. Risk of anesthesia up to and including was a discussed with the patient. These are outlined in the risk review. They were willing to accept these risks and all of the risks of surgery. The patient was given a weight- based dose of antibiotics in the form of vancomycin and cefepime from the floor. The patient was seen and evaluated by the anesthesia team who deemed them fit for surgery. The site was marked, the patient was willing to proceed with the procedure. The patient was transferred to the operative suite by the Department of anesthesia. They were then drifted off to sleep by the department anesthesia and GETA was performed. The patient tolerated this well. [Almendarez catheter was placed by nursing staff, atraumatically]. Once confirmation of lines and ventilation the patient was transferred to a [prone Gerardo table very carefully]. All bony prominences including wrists, elbows, axilla, chest, hips, and thighs, and feet were padded very well. Special attention was paid to the genitalia and these were padded accordingly. SCDs were placed on bilateral lower extremities and were connected. Arms were well padded and placed [on arm boards up and out in the 90/90 position]. Once in position, again we confirmed good ventilation capabilities and that lines were running appropriately. The patient's thoracolumbar spine was then exposed. 1010s were placed outlining the incision site. Standard alcohol was used to clean the incision site and allowed to dry. C-arm was used to biomark the patient and confirm level for incision whi ch was marked with a skin marker. Operative briefing was performed with all teams and everyone in agreement to proceed. The patient was then prepped and draped in a normal sterile fashion. Timeout was then performed and all parties were in agreement with the procedure to be performed. At the uppper portion of the incision there was a draining region with serous fluid output as well as ulceration of her wound. This was ellipticized to remove the skin and necrotic tissues surrounding this region with a 10 blade. Good bleeding skin was noted. Dissection was then taken down to the fascia w here the SP were putting pressure on the fascia. The SP were removed with rongure at these levels and smoothed off. Further necrotic tissues were removed with curette and rongure. Cultures and specimine were taken from this area. Then Irricept was run through the wound followed by NSS, then 3L ancef irrigant followed by 3L gentamycin irrigant followed by 1 L betadine solution and then finally 3L NSS. During this, debridment was done as well with curette. Good bleeding surfaces achieved. Layered closure was then done first in the fascia with #1 PDS. O Vicryl was placed in the deep subcu tissue 2-0 Vicryl in the superficial subcu tissue and 2-0 nylon were placed in the skin. Wound edges approximated very well. The wound was then cleaned and dressed sterilely with a Preevena wound VAC The patient was transferred back to their hospital bed atraumatically. Patient was then awakened and extubated by the department of anesthesia having tolerated the procedure very well with no complications. They were transferred to the postoperative care unit in stable condition.
--- NOTE | 2023-06-25 08:35 | P.PN ---
Subjective Progress Note Date: 06/25/23 Principal diagnosis: History of previous [id number] decompression and fusion History of fall resulting in T9 burst fracture, status post T6-T10 posterior stabilization and ORIF at T9 (05/15/2023) Altered mental status Grave debility Multiple medical comorbidities Patient seen and examined this morning. Patient is resting in bed. Patient remains pleasantly confused. She continues to pull off her gown and will not keep herself covered. Dressing to the thoracic spine is clean dry and intact with wound VAC intact and patent. Weiss catheter is present and patent with clear yellow urine. No acute concerns at this time. Objective - Vital Signs Vital signs: Vital Signs Temp 98.2 F 06/25/23 07:18 Pulse 88 06/25/23 07:18 Resp 16 06/25/23 07:18 BP 146/80 06/25/23 07:18 Pulse Ox 94 L 06/25/23 07:18 FiO2 Intake & Output 06/24/23 06/25/23 06/25/23 18:59 06:59 18:59 Output Total 650 Balance -650 Output: Urine 650 Other: Voiding Method Indwelling Catheter # Bowel Movements 1 - Exam Physical Examination General: The patient remains confused, in no acute distress Skin: Skin is warm and dry with small bruise noted on left lateral thigh, Surgical incision to the thoracic spine with Prevana wound vac present Limited exam due to patients altered mentation - Labs CBC & Chem 7: 06/24/23 06:01 06/25/23 06:02 Labs: Abnormal Lab Results - Last 24 Hours (Table) 06/25/23 Range/Units 06:02 Creatinine 0.27 L (0.52-1.04) mg/dL Microbiology - Last 24 Hours (Table) 06/23/23 18:37 Gram Stain - Preliminary Back Wound Culture - Preliminary 06/19/23 17:24 Blood Culture - Final Blood Assessment and Plan Assessment: Post Op Day 2: Thoracolumbar irrigation and debridement 1. Thoracolumbar wound dehiscence 2. History of previous [id number] decompression and fusion 3. History of fall resulting in T9 burst fracture, status post T6-T10 posterior stabilization and ORIF at T9 (05/15/2023) 4. Altered mental status 5. Grave debility 6. Multiple medical comorbidities Plan: -Appreciate home energy consultant and team management. -Activity: Daily PT/OT, increase ambulation strength and balance. -Pain control: Adequate at this time -Meds: reviewed -GI ppx: Ziyad leonalax -DC weiss when up and about, bedside commode if needed -DVT PPX: Xarelto -Hygiene: Shower today. Maintain dressing clean and dry. Meticulous cleaning after BMs away from the incision site -Wound Vac: Maintain for now. -Encourage IS 10x/hr -Dispo: Clincally pending *I reviewed and discussed this case with my attending Dr. Flores, whom has reviewed this chart and films and is in agreement with assessment and plan of care as outlined above. I have personally seen and examined the patient, performed the documentation and the assessment and plan as written. Number of minutes spent on the visit: 20m.
[2023-06-25 14:36] VITALS: BMI 28.2
--- NOTE | 2023-06-25 14:37 | P.PN ---
Subjective Progress Note Date: 06/24/23 Principal diagnosis: Reason for follow-up is cellulitis to the thoracic spine incision Patient is a 68-year-old female who recently did have T9 burst fracture and the patient is status post open treatment of T9 fracture with extensive surgery to the T6-T10 spine, patient has been brought back to the hospital concerning for mental status changing and confusion.Patient is status post thoracic wound incision and drainage with irrigation and debridement of the skin and soft tissue and necrotic material completed on 06/23/2023 as well as deep cultures On today's visit that is 06/24/2023,the patient remains to be afebrile, patient is on room air not requiring supplemental oxygen patient seems to be pleasantly confused but did answer simple question no vomiting diarrhea or any other changes reported by the nursing staff Patient did have a white count of 7.4, creatinine 0.22 Objective - Vital Signs Vital signs: Vital Signs Temp 98.5 F 06/24/23 07:43 Pulse 89 06/24/23 07:43 Resp 18 06/24/23 07:43 BP 155/97 06/24/23 07:43 Pulse Ox 97 06/24/23 07:43 FiO2 Intake & Output 06/23/23 06/24/23 06/24/23 18:59 06:59 18:59 Intake Total 502 0 Output Total [id number] Balance - Intake: IV 502 0 Output: Urine 1049 2049 Estimated Blood Loss 5 Other: Voiding Method Indwelling Catheter Indwelling Catheter # Bowel Movements 2 3 - Exam GENERAL DESCRIPTION: An elderly female lying in bed in no distress RESPIRATORY SYSTEM: Unlabored breathing , decreased breath sounds at bases HEART: S1 S2 regular rate and rhythm , ABDOMEN: Soft , no tenderness Erythema to the thoracic spine incision decreased compared to yesterday juancarlos are still intact - Labs CBC & Chem 7: 06/24/23 06:01 06/25/23 06:02 Labs: Abnormal Lab Results - Last 24 Hours (Table) 06/23/23 06/24/23 06/24/23 Range/Units 10:52 06:01 06:01 RBC 3.09 L (3.80-5.40) m/uL Hgb 9.5 L (11.4-16.0) gm/dL Hct 29.0 L (34.0-46.0) % RDW 15.8 H (11.5-15.5) % Lymphocytes # 0.5 L (1.0-4.8) k/uL Sodium 134 L (137-145) mmol/L Potassium 3.1 L (3.5-5.1) mmol/L Chloride 109 H (98-107) mmol/L Carbon Dioxide 19 L (22-30) mmol/L BUN 3 L (7-17) mg/dL Creatinine 0.22 L 0.22 L (0.52-1.04) mg/dL Calcium 8.3 L (8.4-10.2) mg/dL Assessment and Plan (1) Surgical site infection Current Visit: Yes Status: Acute Code(s): T81.49XA - INFECTION FOLLOWING A PROCEDURE, OTHER SURGICAL SITE, INIT SNOMED Code(s): 73474361 Plan: 1-patient presenting to the hospital with increasing confusion in this patient who recently did have extensive thoracic spine surgery after a T9 burst fracture patient did have cellulitis to the surgical site unclear examination could be the likely source of this confusion as the patient did have a negative chest x- ray UA was not significantly positive abdominal soft on clinical examination 2-patient is status post surgical I&D and deep cultures are currently pending 3-patient to continue the patient on vancomycin and cefepime, while waiting for the culture to finalize Dictation was produced using [employer] dictation software. please excuse any grammatical, word or spelling errors. Time with Patient: Less than 30
--- NOTE | 2023-06-25 14:38 | P.PN ---
Subjective Progress Note Date: 06/25/23 Principal diagnosis: Reason for follow-up is cellulitis to the thoracic spine incision Patient is a 68-year-old female who recently did have T9 burst fracture and the patient is status post open treatment of T9 fracture with extensive surgery to the T6-T10 spine, patient has been brought back to the hospital concerning for mental status changing and confusion.Patient is status post thoracic wound incision and drainage with irrigation and debridement of the skin and soft tissue and necrotic material completed on 06/23/2023 as well as deep cultures On today's visit that is 06/25/2023, the patient continues to be afebrile, the patient is on room air and breathing comfortably, the Pt seem to be slightly more awake today and denies having any chest pain or cough, the patient denies having any abdominal pain no vomiting or any diarrhea has been reported by the nursing staff Patient did have a creatinine 0.27 cultures are currently pending Objective - Vital Signs Vital signs: Vital Signs Temp 98.2 F 06/25/23 07:18 Pulse 88 06/25/23 07:18 Resp 16 06/25/23 07:18 BP 146/80 06/25/23 07:18 Pulse Ox 94 L 06/25/23 07:18 FiO2 Intake & Output 06/24/23 06/25/23 06/25/23 18:59 06:59 18:59 Output Total 650 Balance -650 Weight 79.379 kg Output: Urine 650 Other: Voiding Method Indwelling Catheter Indwelling Catheter # Bowel Movements 1 - Exam GENERAL DESCRIPTION: An elderly female lying in bed in no distress RESPIRATORY SYSTEM: Unlabored breathing , decreased breath sounds at bases HEART: S1 S2 regular rate and rhythm , ABDOMEN: Soft , no tenderness Erythema to the thoracic spine incision decreased compared to yesterday juancarlos are still intact - Labs CBC & Chem 7: 06/24/23 06:01 06/25/23 06:02 Labs: Abnormal Lab Results - Last 24 Hours (Table) 06/25/23 Range/Units 06:02 Creatinine 0.27 L (0.52-1.04) mg/dL Microbiology - Last 24 Hours (Table) 06/23/23 18:37 Gram Stain - Preliminary Back Wound Culture - Preliminary 06/19/23 17:24 Blood Culture - Final Blood Assessment and Plan (1) Surgical site infection Current Visit: Yes Status: Acute Code(s): T81.49XA - INFECTION FOLLOWING A PROCEDURE, OTHER SURGICAL SITE, INIT SNOMED Code(s): 03633373 Plan: 1-patient presenting to the hospital with increasing confusion in this patient who recently did have extensive thoracic spine surgery after a T9 burst fracture patient did have cellulitis to the surgical site unclear examination could be the likely source of this confusion as the patient did have a negative chest x- ray UA was not significantly positive abdominal soft on clinical examination 2-patient is status post surgical I&D and deep cultures are currently pending 3-patient is afebrile white count normal, to continue the patient on vancomycin and cefepime, while waiting for the culture to finalize Dictation was produced using [employer] dictation software. please excuse any grammatical, word or spelling errors. Time with Patient: Less than 30
--- NOTE | 2023-06-25 15:04 | CDI ---
Documentation Clarification Form Date: 06/25/2023 02:40:48 PM From: Radha López RN, CCDS Phone: [phone] Admit Date: 06/19/2023 03:57:00 PM Patient Name: Darline Chiang Visit Number: [id number] Discharge Date: ATTENTION: The Clinical Documentation Specialists (CDI) and [facility] Coding Staff appreciate your assistance in clarifying documentation. Please respond to the clarification below the line at the bottom and electronically sign. The CDI & [facility] Coding staff will review the response and follow-up if needed. Please note: Queries are made part of the Legal Health Record. If you have any questions, please contact the author of this message via ITS. Dr. Bertin Booker wound incision and drainage and debridement is documented in the operative note on 06/25/23. Additional clarification regarding the procedure is requested. History/Risk Factors: [id number] decompression and fusion, fall resulting in T9 burst fracture, status post T6-T10 posterior stabilization and ORIF at T9 (05/15/2023) Anxiety, Bipolar, Depression Clinical Indicators: 68-year-old female Possible incision infection with erythema to the thoracic spine and did have cellulitis to the surgical site. 06/24 Procedure: incision with irrigation and debridement of the thoracic incision for 06/22/2023. Technique: Skin knife to remove skin and necrotic tissue Currette to remove necrotic fat. Rongure to remove bone and spinous process causing pressure on wound. Treatment: Maintain dressing clean and dry Meticulous cleaning after BMs away from the incision site Wound Van maintain for now Please clarify the type of procedure performed: Vancomycin 1,500 MG IVPB Q 12 HRS 06/19-06/24 (PTD) Daily PT/OT [ ] Excisional debridement (the removal of necrotic, devitalized tissue or slough by means of cutting away of tissue) [ ] Non-excisional debridement (the removal of necrotic, devitalized tissue or slough by means of flushing, brushing, or washing. (Irrigation) [ ] Other; please specify [ ] Unable to determine Five elements required for accurate and compliant documentation of a debridement: Technique used (e.g., excisional, excised, cutting, brushing, jet lavage etc.) Instrument(s) used (e.g., scalpel, curette, etc.) Nature of the tissue removed (e.g., necrotic, devitalized tissues, non-viable tissue, etc.) Appearance and size of the wound (e.g., down to fresh bleeding tissue, 7cm x 10cm, etc.) Depth of the debridement* (e.g., skin, subcutaneous tissue, fascia, muscle, bone, etc.) (Template Last Revised: June 2020) Excisional debridement (the removal of necrotic, devitalized tissue or slough by means of cutting away of tissue) [facility]
[2023-06-25 15:14] VITALS: RESP 17
--- NOTE | 2023-06-25 17:11 | P.PN ---
Progress Note - Text Progress Note Date: 06/25/23 Chief Complaint: Increasing confusion This is a pleasant 68-year-old patient, follows with Dr. Malik Beyer. Patient on 03/31/2023 underwent lower back surgery by Dr. Flores. Rather extensive surgery. Following that patient was discharged to [facility] for rehab. Patient then readmitted from April 13 through April 17. Was found to have pulmonary embolism. discharged to [facility]. Readmitted May 13 been having falls. Some low back pain. This morning patient was on the toilet and she fell down hitting the head. Did not pass out. Cervical collar was placed. CT scans of brain unremarkable. She been having some weakness of the lower extremity. Apparently at home the dog ran into her and she had fallen on her left side. She is also having trouble getting out of bed. Has been using a walker. No change in bowel or urine pattern. No fever or chills. Orthopedics/Dr. Flores was consulted Per son Jeronimo: Patient had stopped taking her Xarelto since she left [facility]. She has signed herself out AMA within 24 hours. Left AMA. Patient was resumed on Xarelto chest CT was negative for PE. Patient subsequently discharged to rehab on May 23.. Patient now presents with increasing confusion. Rather delirious. Cannot really pin down the history. No fever reported. Patient has some low back pain. June 19: Patient remains a bit delirious. Did take her medications. Decreased oral intake. Being followed by ID. On IV cefepime and vancomycin. Patient seen by MICA BUILDER from Dr. Flores's team. At this point continue with antibiotics. No other intervention for them. June 20: Patient a bit less delirious today. Continues on IV cefepime and vancomycin. Patient being scheduled for I&D for tomorrow. Patient seen by psychiatry. Dose of Seroquel was cut back. Ativan discontinued. Sleep cycle discussed with the nurse. Patient did eat some food. June 21: Some delirium still present. ID has been postponed for tomorrow. Psychiatry did adjust medications. Yesterday. Remains on IV antibiotics. Oral intake variable. June 22: Patient more awake but continues to be delirious. Will answer occasional questions. Patient was taken down for I&D earlier today. Remains on IV cefepime and vancomycin. Did call 3 W. to see if the on-call psychiatrist could reevaluate the patient. In the meantime we will change the morning dose of Seroquel to 50 mg in p.m. dose to 400. June 23: A bit less delirious but still present. Dose of Seroquel adjusted yesterday. TSH come back at 0.755. Possibly over replacement. Will cut back dose of Synthroid to 37.5. This might help her symptoms. Patient underwent I&D of the spinal wound yesterday. Has a Prevena wound VAC in place. Minimal output. Does not appear in much pain. Though she has a history of saying that she is in pain. Will DC Providence 10 and Dilaudid. Leave her on Providence 5. June 24: Patient dose of Synthroid was cut back. New dose will start tomorrow. Patient doing much better today. Does slight delirium still present. Me along with the nurse was able to feed quite a bit of breakfast. Wound cultures from the recent ID pending. Synthroid cut back to 25 Active Medications Acetaminophen (Acetaminophen Tab 325 Mg Tab) 650 mg PO Q6HR PRN PRN Reason: Mild Pain or Fever > 100.5 Last Admin: 06/25/23 02:21 Dose: 650 mg Hydrocodone Bitart/Acetaminophen (Hydrocodone/Apap 5-325mg 1 Each Tab) 1 each PO Q6HR PRN PRN Reason: Pain Last Admin: 06/20/23 07:00 Dose: 1 each Carvedilol (Carvedilol 6.25 Mg Tab) 6.25 mg PO BID-W/MEALS [facility] Last Admin: 06/25/23 08:51 Dose: 6.25 mg Cyclobenzaprine HCl (Cyclobenzaprine 5 Mg Tab) 5 mg PO Q8H PRN PRN Reason: Muscle Spasm Last Admin: 06/25/23 02:20 Dose: 5 mg Ergocalciferol (Ergocalciferol 1,250 Mcg (50,000 Iu) Capsule) 1,250 mcg PO Fr@0900 [facility] Cefepime HCl 2 gm/ Sodium (Chloride) 100 mls @ 25 mls/hr IVPB Q8H [facility]; Protocol Last Admin: 06/25/23 08:59 Dose: 25 mls/hr Vancomycin HCl 1,500 mg/ (Sodium Chloride) 500 mls @ 167 mls/hr IVPB Q12H [facility] Last Admin: 06/25/23 12:07 Dose: 167 mls/hr Dextrose/Sodium Chloride (Dextrose 5%-1/2ns Iv Soln) 1,000 mls @ 125 mls/hr IV .Q8H [facility] Last Admin: 06/25/23 12:07 Dose: 125 mls/hr Lamotrigine (Lamotrigine 100 Mg Tab) 200 mg PO BID [facility] Last Admin: 06/25/23 08:51 Dose: 200 mg Levothyroxine Sodium (Levothyroxine 75 Mcg Tab) 37.5 mcg PO DAILY@0630 [facility] Magnesium Hydroxide (Magnesium Hydroxide 2,400 Mg/30 Ml Cup) 2,400 mg PO DAILY PRN PRN Reason: Constipation Miscellaneous Information (Vancomycin Trough Due 1 Each Misc) 0 each MISCELLANE DIRECTED ONE Stop: 06/26/23 10:01 Naloxone HCl (Naloxone 0.4 Mg/Ml 1 Ml Vial) 0.2 mg IV Q2M PRN PRN Reason: Opioid Reversal Non-Formulary Medication (Linaclotide [Linzess]) 145 mcg PO DAILY PRN PRN Reason: Constipation Quetiapine Fumarate (Quetiapine 50 Mg Tab) 50 mg PO DAILY@0900 [facility] Last Admin: 06/25/23 08:53 Dose: 50 mg Quetiapine Fumarate (Quetiapine 200 Mg Tab) 400 mg PO [facility] Last Admin: 06/24/23 19:51 Dose: 400 mg Rivaroxaban (Rivaroxaban 20 Mg Tab) 20 mg PO W/SUPPER [facility]; Protocol Last Admin: 06/24/23 18:39 Dose: 20 mg Senna (Sennosides 8.6 Mg Tab) 8.6 mg PO DAILY [facility] Last Admin: 06/25/23 08:51 Dose: 8.6 mg Sodium Chloride (Sodium Chloride Tab 1 Gm Tab) 1 gm PO BID [facility] Last Admin: 06/25/23 08:52 Dose: 1 gm Trazodone HCl (Trazodone Hcl 50 Mg Tab) 50 mg PO [facility] Last Admin: 06/24/23 19:51 Dose: 50 mg Past medical history to include: Iron deficiency anemia, gastric bypass, bipolar disorder, osteoarthritis, constipation possibly from narcotics. Lower back pain with surgery Social history: Prior history of prescription drug abuse. Providence. Has been clean since 2014. Son lives at home with her. Currently at rehab at [facility] Physical examination: VITAL SIGNS: 98, 78, 17, 143/85, 95% room air GENERAL: Some delirium still present. But more awake. More talkative. Able to eat quite a bit of breakfast. e. EYES: Pupils equal. Conjunctiva normal. HEENT: External appearance of nose and ears normal, oral cavity grossly normal. NECK: JVD not raised HEART: First and second heart sounds are normal; no edema. LUNGS: Respiratory rate normal; clear to auscultation. ABDOMEN: Soft, nontender, liver spleen not palpable, no masses palpable. PSYCH: Some improvement in delirium MUSCULOSKELETAL:No Clubbing/cyanosis;muscles-grossly intact. OA. Some redness at the surgical incision site INVESTIGATIONS, reviewed in the clinical context: June 23: White count 7.4 hemoglobin 9.5 potassium 3.1 creatinine 0.22 TSH 0.755 June 21: White count 7.4 hemoglobin 8.7 potassium 4.4 creatinine 0.26 June 20: White count 6.1 hemoglobin 9.3 potassium 2.9 creatinine 0.24 Procalcitonin 0.56 June 19, 2023: Weight Silver 10.3 hemoglobin 9.8 platelets 351 sodium 134 potassium 4 creatinine 0.28 Troponin I 0.035 Urine drug screen positive for opiates, oxycodone, tricyclic antidepressant, benzodiazepines Assessment and plan: -Acute delirium metabolic encephalopathy..: Some improvement cut back patient Providence to 5. Seroquel a.m. dose was increased to 50 mg. P.m. dose increased to 40 mg. Afternoon dose was discontinued Some over replacement of Synthroid-cut back dose of Synthroid. - lumbar surgery in March with Dr. Flores. Possible incision infection: Cultures pending IV vancomycin, IV cefepime. I&D's by Dr. Flores-. June 22. -Essential hypertension, Coreg 6.25 mg twice daily - vertebral body compression fracture which is reported to be new from March 31. Patient had a fall 2 weeks ago when her dog and ran into her at home. Open treatment of T9 fracture with reduction. T6-T10 instrumented post lateral fusion. With stabilization. Decompressive laminectomy. Etc. with Dr. Flores May 16, [address] Goodmanson -Chronic pulmonary embolism. March 2023 Xarelto - gait dysfunction following surgery. rehab Does use a walker -Bipolar disorder: Seen by psychiatry this admission. -Hypothyroid, with some over replacement Synthroid back to 25 TSH low -Full code Some improvement noted. Dose of Synthroid was cut back yesterday. New dose will start tomorrow. Patient able to eat better. Feeding with assistance Past Medical History Past Medical History: No Reported History Additional Past Medical History / Comment(s): IRON DEFICIENCY ANEMIA. History of Any Multi-Drug Resistant Organisms: None Reported Past Surgical History: Back Surgery, Bariatric Surgery, Orthopedic Surgery Additional Past Surgical History / Comment(s): right shoulder, left shoulder, gastric bypass Past Anesthesia/Blood Transfusion Reactions: No Reported Reaction Past Psychological History: Anxiety, Bipolar, Depression Smoking Status: Never smoker Past Alcohol Use History: Abuse Past Drug Use History: Prescription Drug Abuse
[2023-06-26] MEDS ORDERED: LEVOTHYROXINE 75 MCG TAB PO SCH (06:30)
[2023-06-26] MEDS: LEVOTHYROXINE 25 MCG TAB PO SCH (06:31)
[2023-06-26 07:46] VITALS: TEMP 98.2
[2023-06-26] MEDS: ERGOCALCIFEROL 1,250 MCG (50,000 IU) CAPSULE PO SCH (08:15)
--- NOTE | 2023-06-26 08:20 | P.PN ---
Subjective Progress Note Date: 06/26/23 Principal diagnosis: History of previous [id number] decompression and fusion History of fall resulting in T9 burst fracture, status post T6-T10 posterior stabilization and ORIF at T9 (05/15/2023) Altered mental status Grave debility Multiple medical comorbidities Patient seen and examined this morning. Patient is resting in bed. Patient remains pleasantly confused. Patient maybe discharged later today to [facility], therefore wound vac has been removed from the thoracic incision and new surgical dressing applied. Edges are well approximated with sutures intact. No active irena inage noted. Weiss catheter is present and patent with clear yellow urine. No acute concerns at this time. Objective - Vital Signs Vital signs: Vital Signs Temp 98 F 06/26/23 02:00 Pulse 84 06/26/23 02:00 Resp 17 06/25/23 14:10 BP 145/88 06/26/23 02:00 Pulse Ox 96 06/26/23 02:00 FiO2 Intake & Output 06/25/23 06/26/23 06/26/23 18:59 06:59 18:59 Output Total 900 1350 Balance -900 -1350 Weight 79.379 kg Output: Urine 900 1350 Other: Voiding Method Indwelling Catheter Indwelling Catheter # Bowel Movements 1 1 - Exam Physical Examination General: The patient remains confused, in no acute distress Skin: Skin is warm and dry with small bruise noted on left lateral thigh, Surgical incision to the thoracic spine, edges are well approximated with sutures intact. No active drainage noted. Limited exam due to patients altered mentation - Labs CBC & Chem 7: 06/24/23 06:01 06/25/23 06:02 Labs: Microbiology - Last 24 Hours (Table) 06/23/23 18:37 Gram Stain - Preliminary Back Wound Culture - Preliminary 06/19/23 17:24 Blood Culture - Final Blood Assessment and Plan Assessment: Post Op Day 3: Thoracolumbar irrigation and debridement 1. Thoracolumbar wound dehiscence 2. History of previous [id number] decompression and fusion 3. History of fall resulting in T9 burst fracture, status post T6-T10 posterior stabilization and ORIF at T9 (05/15/2023) 4. Altered mental status 5. Grave debility 6. Multiple medical comorbidities Plan: -Appreciate enterprise resource planning consultant and team management. -Activity: Daily PT/OT, increase ambulation strength and balance. -Pain control: Adequate at this time -Meds: reviewed -GI ppx: sencinthya, Miralax -DC weiss when up and about, bedside commode if needed -DVT PPX: Xarelto -Hygiene: Shower today. Maintain dressing clean and dry. -Encourage IS 10x/hr -Dispo: Patient is cleared from Orhtopedic standpoint for discharge to [facility] when medically cleared. *I reviewed and discussed this case with my attending Dr. Flores, whom has reviewed this chart and films and is in agreement with assessment and plan of care as outlined above. I have personally seen and examined the patient, performed the documentation and the assessment and plan as written. Number of minutes spent on the visit: 20m.
[2023-06-26 10:55] LABS: Basophils % (A) 0 %; Chloride 110 mmol/L (98-107); Eosinophils # (A) 0.1 k/uL (0-0.7); Eosinophils % (A) 2 %; HCT 23.8 % (34.0-46.0); Hypochromasia Moderate; Lymphocytes # (A) 0.5 k/uL (1.0-4.8); Lymphocytes % (A) 7 %; MCH 29.7 pg (25.0-35.0); MCHC 31.2 g/dL (31.0-37.0); MCV 95.2 fL (80.0-100.0); Mean Platelet Volume 7.7; Monocytes # (A) 0.6 k/uL (0-1.0); Monocytes % (A) 9 %; Neutrophils # (A) 5.6 k/uL (1.3-7.7); Neutrophils % (A) 82 %; Platelet Count 335 k/uL (150-450); WBC 6.8 k/uL (3.8-10.6)
[2023-06-26 10:56] LABS: African American GFR (CKD) >90 (>60 ml/min/1.73 sqM); Anion Gap 3 mmol/L; Blood Urea Nitrogen 5 mg/dL (7-17); Calcium 8.1 mg/dL (8.4-10.2); Carbon Dioxide 20 mmol/L (22-30); Glucose 91 mg/dL (74-99); Non-African American GFR(CKD) >90 (>60 ml/min/1.73 sqM); Sodium 133 mmol/L (137-145)
[2023-06-26 11:05] LABS: HGB 7.4 gm/dL (11.4-16.0)
[2023-06-26] MEDS: VANCOMYCIN TROUGH DUE 1 EACH MISC MISCELLANE ONE (11:15)
--- NOTE | 2023-06-26 14:39 | P.DS ---
Providers Date of admission: 06/19/23 15:57 Expected date of discharge: 06/26/23 Attending physician: Decaln Orta Consults: 06/19/23 15:56 Consult Physician Routine Consulting Provider: Alicja Robins Consult Reason/Comments: ams Do you want consulting provider notified?: Yes 06/19/23 16:06 Consult Physician Routine Consulting Provider: Bertin Flores Consult Reason/Comments: known Do you want consulting provider notified?: Yes 06/19/23 16:08 Consult Physician Routine Consulting Provider: Garry Sanchez Consult Reason/Comments: ?infection Do you want consulting provider notified?: Yes Primary care physician: [facility] Course: Chief Complaint: Increasing confusion This is a pleasant 68-year-old patient, follows with Dr. Malik Beyer. Patient on 03/31/2023 underwent lower back surgery by Dr. Flores. Rather extensive surgery. Following that patient was discharged to [facility] for rehab. Patient then readmitted from April 13 through April 17. Was found to have pulmonary embolism. discharged to [facility]. Readmitted May 13 been having falls. Some low back pain. This morning patient was on the toilet and she fell down hitting the head. Did not pass out. Cervical collar was placed. CT scans of brain unremarkable. She been having some weakness of the lower extremity. Apparently at home the dog ran into her and she had fallen on her left side. She is also having trouble getting out of bed. Has been using a walker. No change in bowel or urine pattern. No fever or chills. Orthopedics/Dr. Flores was consulted Per son Jeronimo: Patient had stopped taking her Xarelto since she left [facility]. She has signed herself out AMA within 24 hours. Left AMA. Patient was resumed on Xarelto chest CT was negative for PE. Patient subsequently discharged to rehab on May 23.. Patient now presents with increasing confusion. Rather delirious. Cannot reall y pin down the history. No fever reported. Patient has some low back pain. June 19: Patient remains a bit delirious. Did take her medications. Decreased oral intake. Being followed by ID. On IV cefepime and vancomycin. Patient seen by [facility] from Dr. Flores's team. At this point continue with antibiotics. No other intervention for them. June 20: Patient a bit less delirious today. Continues on IV cefepime and vancomycin. Patient being scheduled for I&D for tomorrow. Patient seen by psychiatry. Dose of Seroquel was cut back. Ativan discontinued. Sleep cycle discussed with the nurse. Patient did eat some food. June 21: Some delirium still present. ID has been postponed for tomorrow. Psychiatry did adjust medications. Yesterday. Remains on IV antibiotics. Oral intake variable. June 22: Patient more awake but continues to be delirious. Will answer occasional questions. Patient was taken down for I&D earlier today. Remains on IV cefepime and vancomycin. Did call 3 W. to see if the on-call psychiatrist could reevaluate the patient. In the meantime we will change the morning dose of Seroquel to 50 mg in p.m. dose to 400. June 23: A bit less delirious but still present. Dose of Seroquel adjusted yesterday. TSH come back at 0.755. Possibly over replacement. Will cut back dose of Synthroid to 37.5. This might help her symptoms. Patient underwent I&D of the spinal wound yesterday. Has a Prevena wound VAC in place. Minimal output. Does not appear in much pain. Though she has a history of saying that she is in pain. Will DC Sidnaw 10 and Dilaudid. Leave her on Sidnaw 5. June 24: Patient dose of Synthroid was cut back. New dose will start tomorrow. Patient doing much better today. Does slight delirium still present. Me along with the nurse was able to feed quite a bit of breakfast. Wound cultures from the recent ID pending. Synthroid cut back to 12 July 8: More awake. Eating well with help. Discussed with ID. The patient to be discharged on Keflex. Cultures have been negative. Spoke to the nurse at length. Spoke to the family service caseworker patient to go back to [facility]. Spoke at length to patient's son. No focal symptoms. Delirium diagnosis much improved after cutting back medications improvement with infection. Wound care to continue as per Dr. Flores and follow-up with him. Spoke to the son about the importance of family spending time with this patient especially during mealtimes to have her help her feet. Several questions were answered. Also follow-up with psychiatry outpatient. Discussion and discharge planning more than 35 minutes Past medical history to include: Iron deficiency anemia, gastric bypass, bipolar disorder, osteoarthritis, constipation possibly from narcotics. Lower back pain with surgery Social history: Prior history of prescription drug abuse. Myriam. Has been clean since 2014. Son lives at home with her. Currently at rehab at [facility] Physical examination: VITAL SIGNS: 98.2, 84, 17, 1 4685, 97% room air GENERAL: Delirium much better. EYES: Pupils equal. Conjunctiva normal. HEENT: External appearance of nose and ears normal, oral cavity grossly normal. NECK: JVD not raised HEART: First and second heart sounds are normal; no edema. LUNGS: Respiratory rate normal; clear to auscultation. ABDOMEN: Soft, nontender, liver spleen not palpable, no masses palpable. PSYCH: Answering questions much better. MUSCULOSKELETAL:No Clubbing/cyanosis;muscles-grossly intact. OA. Some redness at the surgical incision site INVESTIGATIONS, reviewed in the clinical context: June 25: White count 6.8 hemoglobin 7.4 potassium 3 BUN 5 creatinine 0.21 June 23: White count 7.4 hemoglobin 9.5 potassium 3.1 creatinine 0.22 TSH 0.755 June 21: White count 7.4 hemoglobin 8.7 potassium 4.4 creatinine 0.26 June 20: White count 6.1 hemoglobin 9.3 potassium 2.9 creatinine 0.24 Procalcitonin 0.56 June 19, 2023: Weight Silvre 10.3 hemoglobin 9.8 platelets 351 sodium 134 potassium 4 creatinine 0.28 Troponin I 0.035 Urine drug screen positive for opiates, oxycodone, tricyclic antidepressant, benzodiazepines Assessment and plan: -Acute delirium metabolic encephalopathy..: Significant improvement cut back patient Myriam to 5. Seroquel a.m. dose was increased to 50 mg. P.m. dose increased to 400 mg. Afternoon dose was discontinued Some over replacement of Synthroid-cut back dose of Synthroid. - lumbar surgery in March with Dr. Flores. Possible incision infection: Cultures negative IV vancomycin, IV cefepime. I&D's by Dr. Flores-. June 22. Discharged on Duricef 5 mg every 12 for 5 days then Keflex 500 g every 8 for 7 days -Essential hypertension, Coreg 6.25 mg twice daily - vertebral body compression fracture which is reported to be new from March 31. Patient had a fall 2 weeks ago when her dog and ran into her at home. Open treatment of T9 fracture with reduction. T6-T10 instrumented post lateral fusion. With stabilization. Decompressive laminectomy. Etc. with Dr. Flores May 16, [address] Flores -Chronic pulmonary embolism. March 2023 Xarelto - gait dysfunction following surgery. rehab Does use a walker -Bipolar disorder: Seen by psychiatry this admission. -Hypothyroid, with some over replacement Synthroid back to 25 TSH low -Full code Disposition: Rehab at [facility] Past Medical History Past Medical History: No Reported History Additional Past Medical History / Comment(s): IRON DEFICIENCY ANEMIA. History of Any Multi-Drug Resistant Organisms: None Reported Past Surgical History: Back Surgery, Bariatric Surgery, Orthopedic Surgery Additional Past Surgical History / Comment(s): right shoulder, left shoulder, gastric bypass Past Anesthesia/Blood Transfusion Reactions: No Reported Reaction Past Psychological History: Anxiety, Bipolar, Depression Smoking Status: Never smoker Past Alcohol Use History: Abuse Past Drug Use History: Prescription Drug Abuse Plan - Discharge Summary Discharge Rx Participant: No New Discharge Prescriptions: New HYDROcodone/APAP 5-325MG [Sidnaw 5-325] 1 each PO Q6HR PRN #12 tab PRN Reason: Pain QUEtiapine [SEROquel] 400 mg PO HS tab Levothyroxine Sodium [Synthroid] 25 mcg PO DAILY@0630 tab cefaDROXiL [Duricef] 500 mg PO Q12HR 5 Days #10 cap Sennosides/Docusate Sodium [Senna Plus 8.6-50 mg Softgel] 1 each PO DAILY #20 capsule Cephalexin [Keflex] 500 mg PO Q8HR 7 Days #21 cap Continue lamoTRIgine [LaMICtal] 200 mg PO BID 30 Days #60 tablet Ergocalciferol [Vitamin D2 (1250 Mcg = 85354 Iu)] 1,250 mcg PO FR Acetaminophen Tab [Tylenol] 650 mg PO Q6HR PRN tab PRN Reason: Mild Pain Or Fever > 100.5 traZODone HCL [Desyrel] 50 mg PO HS Linaclotide [Linzess] 145 mcg PO DAILY PRN PRN Reason: Constipation Cyclobenzaprine [Flexeril] 5 mg PO Q8H PRN PRN Reason: Muscle Spasm carvediloL [Coreg] 6.25 mg PO BID-W/MEALS tab Sennosides [Senokot] 8.6 mg PO DAILY tab Sodium Chloride Tab 1 gm PO BID tab Rivaroxaban [Xarelto] 20 mg PO W/SUPPER tab Healthshake 1 dose PO TID@0800,1200,1800 Magnesium Hydroxide [Milk of Magnesia] 2,400 mg PO Q72H PRN PRN Reason: Constipation LORazepam [Ativan] 0.5 mg PO Q12H PRN #6 tab PRN Reason: Anxiety QUEtiapine [SEROquel] 50 mg PO DAILY #0 Discontinued Levothyroxine Sodium [Synthroid] 88 mcg PO HS QUEtiapine FUMARATE [SEROquel] 300 mg PO HS cefaDROXiL [Duricef] 500 mg PO BID@0800,1600 oxyCODONE HCL/ACETAMINOPHEN [Percocet 10-325 mg] 1 tab PO Q6HR PRN PRN Reason: Pain Discharge Medication List lamoTRIgine [LaMICtal] 200 mg PO BID 30 Days #60 tablet 02/08/18 [Rx] Cyclobenzaprine [Flexeril] 5 mg PO Q8H PRN 05/12/23 [History] Ergocalciferol [Vitamin D2 (1250 Mcg = 62122 Iu)] 1,250 mcg PO FR 05/12/23 [History] Linaclotide [Linzess] 145 mcg PO DAILY PRN 05/12/23 [History] Acetaminophen Tab [Tylenol] 650 mg PO Q6HR PRN tab 05/23/23 [Rx] Rivaroxaban [Xarelto] 20 mg PO W/SUPPER tab 05/23/23 [Rx] Sennosides [Senokot] 8.6 mg PO DAILY tab 05/23/23 [Rx] Sodium Chloride Tab 1 gm PO BID tab 05/23/23 [Rx] carvediloL [Coreg] 6.25 mg PO BID-W/MEALS tab 05/23/23 [Rx] Healthshake 1 dose PO TID@0800,1200,1800 06/19/23 [History] Magnesium Hydroxide [Milk of Magnesia] 2,400 mg PO Q72H PRN 06/19/23 [History] traZODone HCL [Desyrel] 50 mg PO HS 06/19/23 [History] Cephalexin [Keflex] 500 mg PO Q8HR 7 Days #21 cap 06/26/23 [Rx] HYDROcodone/APAP 5-325MG [Sidnaw 5-325] 1 each PO Q6HR PRN #12 tab 06/26/23 [Rx] LORazepam [Ativan] 0.5 mg PO Q12H PRN #6 tab 06/26/23 [Rx] Levothyroxine Sodium [Synthroid] 25 mcg PO DAILY@0630 tab 06/26/23 [Rx] QUEtiapine [SEROquel] 50 mg PO DAILY #0 06/26/23 [Rx] QUEtiapine [SEROquel] 400 mg PO HS tab 06/26/23 [Rx] Sennosides/Docusate Sodium [Senna Plus 8.6-50 mg Softgel] 1 each PO DAILY #20 capsule 06/26/23 [Rx] cefaDROXiL [Duricef] 500 mg PO Q12HR 5 Days #10 cap 06/26/23 [Rx] Follow up Appointment(s)/Referral(s): Rolando Beyer MD [REFERRING] - 1-2 days Bertin Flores DO [Doctor of Osteopathic Medicine] - 2 Weeks Garry Sanchez MD [STAFF PHYSICIAN] - 2 Weeks Activity/Diet/Wound Care/Special Instructions: Spine Discharge and Recovery Instructions Date of Surgery: 06/23/2023 Diagnosis: 1. WOUND ULCERATION WITH DEHISCENCE THORACIC SPINE 2. COMPLEX MEDICAL PATIENT WITH MULTIPLE CARE HOME 3. BACK PAIN Procedure(s) Performed: 1. THORACIC WOUND INCISION AND DRAINAGE WITH IRRIGATION AND DEBRIDEMENT OF SKIN, SOFT TISSUE, MUSCLE AND BONE [id number] CM Medications: See medication list All medication refills should be obtained through your primary care doctor or your clinic spine surgeon. Please discuss prescription refills at your follow up appointment. Do not call the hospital for medication refills. Dressing: Leave your dressing in place for a total of 5 days post operatively. Then you may remove your dressing and leave open to air. Keep the area clean and if not able to keep area clean, then cover with sterile gauze and tape. Showering: You may shower 3 days after your procedure allowing soap and water to run over incision. Do not scrub. Do not soak. Blot dry. Follow up: Please confirm a follow up appointment with your surgeon 3 weeks post operatively. Please make an appointment to follow up with your PCP in 1-2 weeks after abhinav mcmahan for evaluation 3 phase, 3-week plan POST OP WEEKS 1-3 1. Lifting/carrying/pushing/pulling limited to less than 5 pounds. 2. Do not sit for longer than 15 minutes at one time. Get up and walk around. Prolonged sitting is NOT advised. If you lay down, see if you can tolerate laying down on you front (belly side) 3. Walk for periods of 15 minutes = 1 mile but no longer; do it multiple times times each day. 4. Ice your low back after activity. POST OP WEEKS 3-6 1. Lifting limited to less than 20 pounds. 2. Do not sit for longer than 30 minutes at a time. Frequently change positions. Use a sit-to stand workstation or take frequent breaks from sitting if you have returned to work. 3. Walk for 30 minutes each day. If possible, do these three or more times a day POST OP WEEKS 6+ At your 6-week appointment we will give you a physical therapy referral to focus on a core stabilization and strengthening program. You should also work on leg & buttock strengthening, hamstring & quadriceps stretching, and continue a low impact aerobic activity program such as swimming, walking, or riding a stationary bicycle. During the initial 6 weeks after your surgery, you are at the highest risk of re-injuring your spine. You should generally avoid BLTs (bending, lifting and twisting combination motions) and follow the above guidelines to reduce the chance of reinjury. You can anticipate post op appointments in our office at approximately 3 weeks and 6 weeks after your surgery. INCISION CARE: If your incision is not draining you do NOT need to cover it with a dressing. Keep your incision clean, dry and intact. In most cases, we apply skin glue, juancarlos or sutures to the incision at the time of surgery. This will be like a crust or have the appearance of a scab and will fall off in time on its own. The stitches or juancarlos need to be removed at 3 weeks post op appointment. You may begin to shower 3 days after surgery (this allows the glue to blake well). However, please avoid scrubbing the incision site or peeling off any of the skin glue. This will ensure optimal healing of your incision. Also, during this time avoid soaking the incision area in water - this includes swimming pools, hot tubs or baths. No ointments, lotions or oils on the incision until your surgeon allows. Leave juancarlos, sutures or glue in place. Neurological dysfunction that comes on suddenly can also be a sign of a stroke. Below some common symptoms of a stroke are listed: B - balance difficulty such as sudden onset walking or leaning to one side - NEW E - eye problem such as sudden double vision or trouble seeing on one side - NEW F - Facial weakness or numbness on one side - NEW A - Arm or leg weakness or numbness on one side - NEW S - Slurred speech or difficulty with word finding - NEW T - Time is BRAIN! Call 911 as soon as you recognize these symptoms Diet: Consume a regular diet rich in vegetables and lean protein such as chicken or fish. You should consume in a ratio of approximately 20% fats|40% carbohydrates|40%protein. Vegetables, sweet potatoes, brown rice or quinoa are examples of good carbohydrates. Chips, white bread, cookies and sweets/sugar are examples of bad carbohydrates. Limit your bad carbs, go wild with good carbs. "Life's Simple 7" Guidelines as per [place] [employer] These will help you reclaim your life after surgery and acid plant helper in your recovery, keeping in mind your restrictions. (1) Get Active. Physical activity can help people lose weight, control high blood pressure and cholesterol, feel emotionally better, and sleep better. (2) Control Cholesterol. Avoid a diet high in saturated fat, trans fat, & cholesterol. Limit whole milk & cream, ice cream, butter, egg yolks, processed meats (like sausage and hot dogs), and fatty meats. Choose healthy foods that are low in saturated fat, trans fat and cholesterol which include: Fruits and vegetables, fiber rich grain products (like whole grain pasta and brown rice), lean meat such as chicken, fish, nuts, seeds, and legumes. (3) Eat Better. Eat small portions. Shop at the grocery with a list and do not stray from it. Tips for a healthy diet include: Limit sodium intake to less than 1500mg daily, avoid prepackaged, processed, and fast foods, choose a diet rich in fruits, vegetables, and whole grain, high fiber foods, and limit saturated & cholesterol in your diet. (4) Manage Blood Pressure. If you have high blood pressure, you should have a cuff at home so that you can check your blood pressure regularly. Be sure you have a good cuff. An arm one is generally better than a wrist one. Bring the cuff to a doctor's appointment to validate that the measurements that your cuff are taking are accurate. Take your blood pressure twice daily when you are sitting down and relaxing. Record the numbers in a log and bring this log with you to your doctors' appointments. (5) Lose Weight if your BMI is above 25. A healthy BMI is between 19-25. To calculate Your BMI, you may use a Standard BMI Calculator on the NIH BMI website: <www.nhlbi.nih.gov/guidelines/obesity/BMI/bmicalc.htm>. Weigh oneself daily. If you are overweight, set a goal to lose weight. A pound a week loss if needed is a good target. (6) Reduce Blood Sugar. Limit foods and liquids with "added sugars." (Added sugars include sucrose, fructose, glucose, maltose, dextrose, high fructose corn syrup, corn syrup, concentrated fruit juice and honey). (7) Stop Smoking. If you smoke, quitting smoking is one of the best things that you can do for your health. Smoking increases your risk of heart attack, stroke, and peripheral vascular disease, which is a build-up of plaque in your arteries. Please discard all the cigarettes and lighters in your house. Have a plan for what you will do when you have the urge to smoke. Direct and second- hand smoke shortens your life as well as the lives of your family, friends and others around you. For your health and the health of those around you, please consider quitting! Proper Bending Body Mechanics: Maintain a wide stance with one foot slightly in front of the other. Keep your back straight. Bend utilizing the strength in your hips and knees. Do not bend at the waist. Maintain the lifted object at your waist-level close to your body. Avoid lifting weight that causes immediately pain or pain anywhere in the body afterwards. Smoking/Nicotine If there was ever one thing that you could do to increase your overall health, decrease your risk of cardiovascular problems by about 39% the second you make the choice, it is to STOP SMOKING. Your body's most instant gratification is the second you stop smoking. We have all heard the studies, read the articles but it is true, smoking is extremely bad for your overall health, and moreover it is detrimental to your bone health. Nicotine, IN ANY FORM, kills bone cells, prevents your body from healing fractures, and significantly prolongs healing after surgery. In spine surgery specifically, it increases your risk of not healing your bones to create a fusion and increases your risk of having a revision surgery due to this up to 60%. I know it is hard. I know it feels impossible. But there are ways. Take control of your life. We are here to help you through it. And when you are ready, ask us and we can direct you to help if you desire. Use the START Plan to Quit Smoking (please visit the Helpguide.org website listed below for more information): S = Set a quit date. Choose a date within the next 2 weeks, so you have enough time to prepare without losing your motivation to quit. If you mainly smoke at work, quit on the weekend, so you have a few days to adjust to the change. T = Tell family, friends, and co-workers that you plan to quit. Let your friends and family in on your plan to quit smoking and tell them you need their support and encouragement to stop. Look for a quit inessa who wants to stop smoking as well. You can help each other get through the rough times. A = Anticipate and plan for the challenges you'll face while quitting. Most people who begin smoking again do so within the first 3 months. You can help yourself make it through by preparing ahead for common challenges, such as nicotine withdrawal and cigarette cravings. R = Remove cigarettes and other tobacco products from your home, car, and work. Throw away all your cigarettes (no emergency pack!), lighters, ashtrays, and matches. Wash your clothes and freshen up anything that smells like smoke. Shampoo your car, clean your drapes and carpet, and steam your furniture. T = Talk to your doctor about getting help to quit. Your doctor can prescribe medication to help with withdrawal and suggest other alternatives. If you can't see a doctor, you can get many products over the counter at your local pharmacy or grocery store, including the nicotine patch, nicotine lozenges, and nicotine gum. Resources for Quitting Smoking: <https://www.[place].gov/documents/[facility]/Quit_Tobacco_Resources_for_patients_313 480_7.pdf> Supplementation: Take recommended dosages of Vitamin D and Calcium to help fortify your bones and help them to heal. See your health maintenance packet for dosages and recommended levels. DVT/VTE prophylaxis: You will be given compression stockings from the hospital. Wear these daily for the first two weeks after surgery. You may take them off at night. You may be prescribed a medication to help thin your blood. Take this as directed. If you are not prescribed this medication, early and frequent ambulation has been shown to be the best prophylaxis to deep vein thrombosis and sequelae related to this event.
[2023-06-26 15:08] VITALS: BP 126/78; PULSE 83
--- NOTE | 2023-06-26 21:56 | P.PN ---
Subjective Progress Note Date: 06/26/23 Principal diagnosis: Reason for follow-up is cellulitis to the thoracic spine incision Patient is a 68-year-old female who recently did have T9 burst fracture and the patient is status post open treatment of T9 fracture with extensive surgery to the T6-T10 spine, patient has been brought back to the hospital concerning for mental status changing and confusion.Patient is status post thoracic wound incision and drainage with irrigation and debridement of the skin and soft tissue and necrotic material completed on 06/23/2023 as well as deep cultures On today's visit that is 06/26/2023, Patient is afebrile patient is currently on room air and breathing comfortably no distress the patient is slightly confused and elevated good historian today did not answer any question no vomiting or diarrhea reported by the nursing staff. Patient did have a white count of 6.8, creatinine 0.21 blood in OR cultures are negative Objective - Vital Signs Vital signs: Vital Signs Temp 98.2 F 06/26/23 07:07 Pulse 84 06/26/23 07:07 Resp 17 06/26/23 07:07 BP 146/85 06/26/23 07:07 Pulse Ox 97 06/26/23 07:07 FiO2 Intake & Output 06/25/23 06/26/23 06/26/23 18:59 06:59 18:59 Output Total 900 1350 Balance -900 -1350 Weight 79.379 kg Output: Urine 900 1350 Other: Voiding Method Indwelling Catheter Indwelling Catheter Indwelling Catheter # Bowel Movements 1 1 - Exam GENERAL DESCRIPTION: An elderly female lying in bed in no distress RESPIRATORY SYSTEM: Unlabored breathing , decreased breath sounds at bases HEART: S1 S2 regular rate and rhythm , ABDOMEN: Soft , no tenderness Erythema to the thoracic spine incision decreased compared to yesterday juancarlos are still intact - Labs CBC & Chem 7: 06/26/23 10:17 06/26/23 10:17 Labs: Abnormal Lab Results - Last 24 Hours (Table) 06/26/23 06/26/23 Range/Units 10:17 10:17 RBC 2.50 L (3.80-5.40) m/uL Hgb 7.4 L D (11.4-16.0) gm/dL Hct 23.8 L (34.0-46.0) % RDW 16.0 H (11.5-15.5) % Lymphocytes # 0.5 L (1.0-4.8) k/uL Sodium 133 L (137-145) mmol/L Potassium 3.0 L (3.5-5.1) mmol/L Chloride 110 H (98-107) mmol/L Carbon Dioxide 20 L (22-30) mmol/L BUN 5 L (7-17) mg/dL Creatinine 0.21 L (0.52-1.04) mg/dL Calcium 8.1 L (8.4-10.2) mg/dL Microbiology - Last 24 Hours (Table) 06/23/23 18:37 Gram Stain - Final Back Wound Culture - Final Assessment and Plan (1) Surgical site infection Status: Acute Code(s): T81.49XA - INFECTION FOLLOWING A PROCEDURE, OTHER SURGICAL SITE, INIT SNOMED Code(s): 50653104 Plan: 1-patient presenting to the hospital with increasing confusion in this patient who recently did have extensive thoracic spine surgery after a T9 burst fracture patient did have cellulitis to the surgical site unclear examination could be the likely source of this confusion as the patient did have a negative chest x- ray UA was not significantly positive abdominal soft on clinical examination 2-patient is status post surgical I&D and deep cultures are so far negative 3-patient is afebrile white count normal, did have a normal sed rate with the cultures negative we will discontinue vancomycin cefepime short course of oral Keflex on discharge discussed with admitting physician Dictation was produced using [employer] dictation software. please excuse any grammatical, word or spelling errors. Time with Patient: Less than 30
== END 2023-06-26 17:55 | DRG 856 ==
LOC: EC 11:28 → 4SSUR 15:57
PROVIDERS: ADMIT Hospitalist; ATTEND Hospitalist
PROC: 0PB40ZZ Excision of Thoracic Vertebra, Open Approach (ICD-10-PCS; principal; 2023-06-23 10:00)
DX: T81.49XA Infection following a procedure, other surgical site, initial encounter (principal); G93.41 Metabolic encephalopathy; S22.050A Wedge compression fracture of T5-T6 vertebra, initial encounter for closed fracture; T81.32XA Disruption of internal operation (surgical) wound, not elsewhere classified, initial encounter; F05 Delirium due to known physiological condition; I27.82 Chronic pulmonary embolism; L03.312 Cellulitis of back [any part except buttock and flank]; F31.9 Bipolar disorder, unspecified; E03.9 Hypothyroidism, unspecified; D50.9 Iron deficiency anemia, unspecified; I10 Essential (primary) hypertension; S22.07 Fracture of T9-T10 vertebra; F41.9 Anxiety disorder, unspecified; K59.00 Constipation, unspecified; M19.90 Unspecified osteoarthritis, unspecified site; M54.50 Low back pain, unspecified; R32 Unspecified urinary incontinence; R26.9 Unspecified abnormalities of gait and mobility; R15.9 Full incontinence of feces; R29.6 Repeated falls; T45.516A Underdosing of anticoagulants, initial encounter; Z91.128 Patient's intentional underdosing of medication regimen for other reason; Z79.890 Hormone replacement therapy; Z79.01 Long term (current) use of anticoagulants; Z79.899 Other long term (current) drug therapy; Z98.84 Bariatric surgery status; Z87.440 Personal history of urinary (tract) infections; W54.1XXA Struck by dog, initial encounter; W01.198A Fall on same level from slipping, tripping and stumbling with subsequent striking against other object, initial encounter
CPT/HCPCS: 36415; 70450; 71045; 72128; 72131; 80048; 80053; 80202; 80306; 80320; 81001; 82140; 82565; 84145; 84443; 84484; 85025; 85610; 85652; 85730; 86140; 86850; 86900; 86901; 87040; 87070; 87075; 87205; 93005; 94760; 96361; 96365; 96366; 96375; 96376; 99285

== ENCOUNTER 2023-07-04 19:10 | Inpatient (IN) | payer MEDICARE, BC ==
[2023-07-04] MEDS: SODIUM CHLORIDE 0.9% 1,000 ML IV ONE ×2 (19:31→22:57)
--- NOTE | 2023-07-04 19:45 | ED ---
Altered Mental Status HPI - General Source: EMS Mode of arrival: EMS <Irish Cates - Last Filed: 07/04/23 23:50> <Dewayne Petersen - Last Filed: 07/05/23 02:20> - General Chief Complaint: Altered Mental Status Stated Complaint: AMS Time Seen by Provider: 07/04/23 19:17 - History of Present Illness Initial Comments: 68-year-old female presenting for evaluation of fall and altered mental status. Patient comes via EMS from [facility]. Patient had an unwitnessed fall. Patient is bedbound and normally ANO x 4. She is on Xarelto for history of pulmonary embolism. Patient has had a steadily declining altered mental status for several weeks. She had surgery to the lumbar spine with Dr. Flores back in March, she has had complications since then and currently has infection to the thoracic spine which has had previous washout. She still has sutures in place and there is redness and swelling to the site. Due to her mental status she is unable to provide any meaningful history. (Irish Cates) - Related Data Home Medications Medication Instructions Recorded Confirmed Cyclobenzaprine [Flexeril] 5 mg PO Q8H PRN 05/12/23 07/04/23 Ergocalciferol [Vitamin D2 (1250 1,250 mcg PO FR 05/12/23 07/04/23 Mcg = 43329 Iu)] Linaclotide [Linzess] 145 mcg PO DAILY PRN 05/12/23 07/04/23 Healthshake 1 dose PO TID@0800,1200,1800 06/19/23 07/04/23 Magnesium Hydroxide [Milk of 2,400 mg PO Q72H PRN 06/19/23 07/04/23 Magnesia] traZODone HCL [Desyrel] 50 mg PO HS 06/19/23 07/04/23 LORazepam [Ativan] 0.5 mg PO Q12HR@0800,2000 PRN 07/04/23 07/04/23 Levothyroxine Sodium [Synthroid] 25 mcg PO DAILY 07/04/23 07/04/23 Naloxone HCl [Narcan] 4 mg NASAL DIRECTED PRN 07/04/23 07/04/23 QUEtiapine [SEROquel] 400 mg PO HS 07/04/23 07/04/23 Sennosides/Docusate Sodium [Senna 1 cap PO DAILY 07/04/23 07/04/23 Plus 8.6-50 mg Softgel] cefaDROXiL [Duricef] 500 mg PO Q12HR 07/04/23 07/04/23 oxyCODONE-APAP 10-325MG [Percocet 1 tab PO Q6H 07/04/23 07/04/23 10-325 mg] Previous Rx's Medication Instructions Recorded lamoTRIgine [LaMICtal] 200 mg PO BID 30 Days #60 tablet 02/08/18 Acetaminophen Tab [Tylenol] 650 mg PO Q6HR PRN tab 05/23/23 Rivaroxaban [Xarelto] 20 mg PO W/SUPPER tab 05/23/23 Sodium Chloride Tab 1 gm PO BID tab 05/23/23 carvediloL [Coreg] 6.25 mg PO BID-W/MEALS tab 05/23/23 QUEtiapine [SEROquel] 50 mg PO DAILY #0 06/26/23 Allergies Allergy/AdvReac Type Severity Reaction Status Date / Time No Known Allergies Allergy Verified 07/04/23 20:10 Review of Systems ROS Other: All systems not noted in ROS Statement are negative. <Irish Cates - Last Filed: 07/04/23 23:50> ROS Other: All systems not noted in ROS Statement are negative. <Dewayne Petersen - Last Filed: 07/05/23 02:20> ROS Statement: Those systems with pertinent positive or pertinent negative responses have been documented in the HPI. Past Medical History Past Medical History: No Reported History Additional Past Medical History / Comment(s): IRON DEFICIENCY ANEMIA. History of Any Multi-Drug Resistant Organisms: None Reported Past Surgical History: Back Surgery, Bariatric Surgery, Orthopedic Surgery Additional Past Surgical History / Comment(s): right shoulder, left shoulder, gastric bypass Past Anesthesia/Blood Transfusion Reactions: No Reported Reaction Past Psychological History: Anxiety, Bipolar, Depression Smoking Status: Never smoker Past Alcohol Use History: Abuse Past Drug Use History: Prescription Drug Abuse - Past Family History Mother Family Medical History: No Reported History Sister(s) Family Medical History: Pulmonary Embolus <Irish Cates - Last Filed: 07/04/23 23:50> General Exam Limitations: altered mental status General appearance: obtunded Head exam: Present: atraumatic, normocephalic Expanded Pupils: Miosissis: Bilateral Neck exam: Present: normal inspection Respiratory exam: Present: normal lung sounds bilaterally. Absent: respiratory distress, wheezes, rales, rhonchi, stridor Cardiovascular Exam: Present: regular rate, normal rhythm, normal heart sounds. Absent: systolic murmur, diastolic murmur, rubs, gallop, clicks Back exam: Present: tenderness (Erythematous and swollen region over the thor acic spine with sutures still present) Neurological exam: Present: altered Expanded Eye Response: (2) open to pain Motor Response: (4) withdraws to pain Verbal Response: incomprehensible sounds Skin exam: Present: dry <Irish Cates - Last Filed: 07/04/23 23:50> Course Vital Signs 07/04/23 07/04/23 07/04/23 19:12 19:57 20:48 Temperature 98.0 F Pulse Rate 87 81 82 Respiratory 17 16 15 Rate Blood Pressure 123/76 125/81 136/82 O2 Sat by Pulse 95 98 99 Oximetry 07/04/23 07/04/23 07/04/23 22:00 22:42 22:59 Temperature Pulse Rate 72 71 Respiratory 16 12 12 Rate Blood Pressure 91/63 82/50 O2 Sat by Pulse 100 98 Oximetry 07/04/23 07/04/23 07/04/23 23:00 23:09 23:22 Temperature Pulse Rate 68 87 Respiratory 12 12 15 Rate Blood Pressure 95/60 121/89 O2 Sat by Pulse 99 96 Oximetry 07/05/23 07/05/23 00:16 01:20 Temperature Pulse Rate 90 91 Respiratory 16 Rate Blood Pressure 119/102 125/90 O2 Sat by Pulse 97 96 Oximetry Medical Decision Making - Lab Data Result diagrams: 07/04/23 19:44 07/04/23 19:44 <Irish Cates - Last Filed: 07/04/23 23:50> - Lab Data Result diagrams: 07/04/23 19:44 07/04/23 19:44 <Dewayne Petersen - Last Filed: 07/05/23 02:20> - Medical Decision Making Was pt. sent in by a medical professional or institution (, PA, INSPECTOR [employer]ERIALS [employer] PROCESSES, urgent care, hospital, or [facility]...) When possible be specific @ -Sent in from [facility] Did you speak to anyone other than the patient for history (EMS, parent, family, police, friend...)? What history was obtained from this source @ -No Did you review nursing and triage notes (agree or disagree)? Why? @ -I reviewed and agree with nursing and triage notes Were old charts reviewed (outside hosp., previous admission, EMS record, old EKG, old radiological studies, urgent care reports/EKG's, mcc records)? Report findings @ -Previous admissions are reviewed Differential Diagnosis (chest pain, altered mental status, abdominal pain women, abdominal pain men, vaginal bleeding, weakness, fever, dyspnea, syncope, headache, dizziness, GI bleed, back pain, seizure, CVA, palpatations, mental health, musculoskeletal)? @ -[facility] Differential Altered Mental Status: Hypoglycemia, DKA, hypercapnia, ETOH, overdose, CO poisoning, trauma, myxedema coma, HTN encephalopathy, infection, encephalitis, psychosis, intercranial hemorrhage, hepatic encephalopathy, meningitis, CVA this is not meant to be an all-inclusive list EKG interpreted by me (3pts min.). @ -EKG shows sinus rhythm with first-degree AV block. Ventricular rate 84. WI interval 212. QRS 98. QT 238. QTc 279. X-rays interpreted by me (1pt min.). @ -Chest x-ray shows haziness of the lungs correlate with serum BNP for congestive heart failure. Post fixation changes to the spine. Hardware appears intact. CT interpreted by me (1pt min.). @ -CT of the brain and C-spine without contrast shows no acute intracranial process. There is some buckling of the T2 vertebral body with possible superior endplate deformity suspicious for fracture. Moderate to severe degeneration changes. Nonspecific white matter changes and mild cerebral atrophy. CT of the thoracic lumbar spine with contrast shows small organizing fluid collection of the upper back favored to represent small abscess. Multilevel fixation changes of the spine with hardware in place. Hardware appears intact U/S interpreted by me (1pt. min.). @ -None done What testing was considered but not performed or refused? (CT, X-rays, U/S, labs)? Why? @ -None What meds were considered but not given or refused? Why? @ -None Did you discuss the management of the patient with other professionals (professionals i.e. , PA, INSPECTOR [employer]S [employer] PROCESSES, lab, RT, psych nurse, high school social science teacher, optical brightener maker helper, teacher, fare enforcement officer, case worker)? Give summary @ -I spoke with Dr. Rabago who accepted admission Was smoking cessation discussed for >3mins.? @ -No Was critical care preformed (if so, how long)? @ -No Were there social determinants of health that impacted care today? How? (Homelessness, low income, unemployed, alcoholism, drug addiction, transportation, low edu. Level, literacy, decrease access to med. care, correction, rehab)? @ -No Was there de-escalation of care discussed even if they declined (Discuss DNR or withdrawal of care, Hospice)? DNR status @ -No What co-morbidities impacted this encounter? (DM, HTN, Smoking, COPD, CAD, Cancer, CVA, ARF, Chemo, Hep., AIDS, mental health diagnosis, sleep apnea, morbid obesity)? @ -Recurrent infections Was patient admitted / discharged? Hospital course, mention meds given and route, prescriptions, significant lab abnormalities, going to OR and other pertinent info. @ -This is a 68-year-old female brought in from [facility] with chief complaint of altered mental status and fall. The patient had an unwitnessed fall today, she was found on the floor. She is on Xarelto. Patient has also had a steadily declining mental status. This has been ongoing for several weeks. Unsure when there seem to be drastic change, as the patient is normally A&O x 4. The patient is obtunded and is unable to answer my questions or follow commands. She does withdraw to painful stimuli. She has a CT of the brain and cervical spine which shows no acute intracranial process or cervical spine fracture. CT of the thoracic and lumbar spine is concerning for abscess formation. Urine is positive for UTI with 125 WBCs and 43 RBCs. Patient's hemoglobin is 8.1 which is consistent with her most recent values on file. The chest x-ray shows hazine ss, correlate with BNP. BNP is 4170. However the patient does not have lower extremity edema. She is given 40 mg of Lasix IV. Patient was given vancomycin and Zosyn to cover for abscess and UTI. She was given 2-1/2 L fluid bolus and started at maintenance rate of 130 mL/h. At 1 point the patient did become hypotensive and was having apneic episodes. She was transferred from room 6 to T2. She was given 2 mg of Narcan IV. The patient then became more aroused. Her blood pressure and respirations normalized and she did not require intubation or BiPAP. She will be admitted for IV antibiotics. Her surgeon Dr. Flores is consulted. I discussed this case with my attending Dr. Petersen Undiagnosed new problem with uncertain prognosis? @ -No Drug Therapy requiring intensive monitoring for toxicity (Heparin, Nitro, Insulin, Cardizem)? @ -No Were any procedures done? @ -No Diagnosis/symptom? @ -Altered mental status, UTI, postop abscess Acute, or Chronic, or Acute on Chronic? @ -Acute Uncomplicated (without systemic symptoms) or Complicated (systemic symptoms)? @ -Complicated Side effects of treatment? @ -No Exacerbation, Progression, or Severe Exacerbation? @ -No Poses a threat to life or bodily function? How? (Chest pain, USA, CO, pneumonia, PE, COPD, DKA, ARF, appy, cholecystitis, CVA, Diverticulitis, Homicidal, Suicidal, threat to staff... and all critical care pts) @ -Yes (Irish Cates) This patient is initially seen by physician laundry assistant. I did go and see the patient and on my initial evaluation, the patient barely has any reaction to sternal rub. The respiratory rate approximately 10/min and patient is hypotensive, upper 80s over 40s. At that point intubation is considered for airway protection, but patient is given dose of Narcan and she did begin to become more responsive. The patient then able to speak, respiratory rate and blood pressure has improved though patient does remain delirious and appears to have probably some element of withdrawal symptoms. (Dewayne Petersen) - Lab Data Lab Results 07/04/23 07/04/23 07/04/23 Range/Units 19:44 19:44 19:44 WBC 10.5 (3.8-10.6) k/uL RBC 2.74 L (3.80-5.40) m/uL Hgb 8.1 L (11.4-16.0) gm/dL Hct 26.2 L (34.0-46.0) % MCV 95.6 (80.0-100.0) fL MCH 29.6 (25.0-35.0) pg MCHC 30.9 L (31.0-37.0) g/dL RDW 16.2 H (11.5-15.5) % Plt Count 431 (150-450) k/uL MPV 7.6 Neutrophils % 84 % Lymphocytes % 8 % Monocytes % 7 % Eosinophils % 1 % Basophils % 0 % Neutrophils # 8.8 H (1.3-7.7) k/uL Lymphocytes # 0.8 L (1.0-4.8) k/uL Monocytes # 0.7 (0-1.0) k/uL Eosinophils # 0.2 (0-0.7) k/uL Basophils # 0.0 (0-0.2) k/uL Hypochromasia Slight Anisocytosis Slight PT 18.1 H (10.0-12.5) sec INR 1.8 H (<1.2) APTT 44.8 H (22.0-30.0) sec Sodium (137-145) mmol/L Potassium (3.5-5.1) mmol/L Chloride (98-107) mmol/L Carbon Dioxide (22-30) mmol/L Anion Gap mmol/L BUN (7-17) mg/dL Creatinine (0.52-1.04) mg/dL Est GFR (CKD-EPI)AfAm (>60 ml/min/1.73 sqM) Est GFR (CKD-EPI)NonAf (>60 ml/min/1.73 sqM) Glucose (74-99) mg/dL POC Glucose (mg/dL) (70-110) mg/dL POC Glu Lacrosse Player ID Plasma Lactic Acid Manuel (0.7-2.0) mmol/L Calcium (8.4-10.2) mg/dL Total Bilirubin (0.2-1.3) mg/dL AST (14-36) U/L ALT (4-34) U/L Alkaline Phosphatase (38-126) U/L NT-Pro-B Natriuret Pep pg/mL Total Protein (6.3-8.2) g/dL Albumin (3.5-5.0) g/dL Urine Color Light Yellow Urine Appearance Cloudy H (Clear) Urine pH 6.5 (5.0-8.0) Ur Specific [place] 1.017 (1.001-1.035) Urine Protein Trace H (Negative) Urine Glucose (UA) Negative (Negative) Urine Ketones Trace H (Negative) Urine Blood Small H (Negative) Urine Nitrite Negative (Negative) Urine Bilirubin Negative (Negative) Urine Urobilinogen <2.0 (<2.0) mg/dL Ur Leukocyte Esterase Large H (Negative) Urine RBC 43 H (0-5) /hpf Urine WBC 125 H (0-5) /hpf Calcium Oxalate Crystal Rare H (None) /hpf Urine Bacteria Rare H (None) /hpf Hyaline Casts 2 (0-2) /lpf Urine Mucus Many H (None) /hpf Urine Yeast (Budding) Few H (None) /hpf Influenza Type A (PCR) (Not Detectd) Influenza Type B (PCR) (Not Detectd) RSV (PCR) (Not Detectd) SARS-CoV-2 (PCR) (Not Detectd) 07/04/23 07/04/23 07/04/23 Range/Units 19:44 19:44 19:44 WBC (3.8-10.6) k/uL RBC (3.80-5.40) m/uL Hgb (11.4-16.0) gm/dL Hct (34.0-46.0) % MCV (80.0-100.0) fL MCH (25.0-35.0) pg MCHC (31.0-37.0) g/dL RDW (11.5-15.5) % Plt Count (150-450) k/uL MPV Neutrophils % % Lymphocytes % % Monocytes % % Eosinophils % % Basophils % % Neutrophils # (1.3-7.7) k/uL Lymphocytes # (1.0-4.8) k/uL Monocytes # (0-1.0) k/uL Eosinophils # (0-0.7) k/uL Basophils # (0-0.2) k/uL Hypochromasia Anisocytosis PT (10.0-12.5) sec INR (<1.2) APTT (22.0-30.0) sec Sodium 132 L (137-145) mmol/L Potassium 4.4 (3.5-5.1) mmol/L Chloride 106 (98-107) mmol/L Carbon Dioxide 26 (22-30) mmol/L Anion Gap 0 mmol/L BUN 8 (7-17) mg/dL Creatinine 0.24 L (0.52-1.04) mg/dL Est GFR (CKD-EPI)AfAm >90 (>60 ml/min/1.73 sqM) Est GFR (CKD-EPI)NonAf >90 (>60 ml/min/1.73 sqM) Glucose 99 (74-99) mg/dL POC Glucose (mg/dL) (70-110) mg/dL POC Glu Lacrosse Player ID Plasma Lactic Acid Manuel 0.8 (0.7-2.0) mmol/L Calcium 8.0 L (8.4-10.2) mg/dL Total Bilirubin 0.5 (0.2-1.3) mg/dL AST 21 (14-36) U/L ALT 12 (4-34) U/L Alkaline Phosphatase 251 H (38-126) U/L NT-Pro-B Natriuret Pep 4170 pg/mL Total Protein 4.4 L (6.3-8.2) g/dL Albumin 2.0 L (3.5-5.0) g/dL Urine Color Urine Appearance (Clear) Urine pH (5.0-8.0) Ur Specific [place] (1.001-1.035) Urine Protein (Negative) Urine Glucose (UA) (Negative) Urine Ketones (Negative) Urine Blood (Negative) Urine Nitrite (Negative) Urine Bilirubin (Negative) Urine Urobilinogen (<2.0) mg/dL Ur Leukocyte Esterase (Negative) Urine RBC (0-5) /hpf Urine WBC (0-5) /hpf Calcium Oxalate Crystal (None) /hpf Urine Bacteria (None) /hpf Hyaline Casts (0-2) /lpf Urine Mucus (None) /hpf Urine Yeast (Budding) (None) /hpf Influenza Type A (PCR) (Not Detectd) Influenza Type B (PCR) (Not Detectd) RSV (PCR) (Not Detectd) SARS-CoV-2 (PCR) (Not Detectd) 07/04/23 07/04/23 Range/Units 21:44 23:04 WBC (3.8-10.6) k/uL RBC (3.80-5.40) m/uL Hgb (11.4-16.0) gm/dL Hct (34.0-46.0) % MCV (80.0-100.0) fL MCH (25.0-35.0) pg MCHC (31.0-37.0) g/dL RDW (11.5-15.5) % Plt Count (150-450) k/uL MPV Neutrophils % % Lymphocytes % % Monocytes % % Eosinophils % % Basophils % % Neutrophils # (1.3-7.7) k/uL Lymphocytes # (1.0-4.8) k/uL Monocytes # (0-1.0) k/uL Eosinophils # (0-0.7) k/uL Basophils # (0-0.2) k/uL Hypochromasia Anisocytosis PT (10.0-12.5) sec INR (<1.2) APTT (22.0-30.0) sec Sodium (137-145) mmol/L Potassium (3.5-5.1) mmol/L Chloride (98-107) mmol/L Carbon Dioxide (22-30) mmol/L Anion Gap mmol/L BUN (7-17) mg/dL Creatinine (0.52-1.04) mg/dL Est GFR (CKD-EPI)AfAm (>60 ml/min/1.73 sqM) Est GFR (CKD-EPI)NonAf (>60 ml/min/1.73 sqM) Glucose (74-99) mg/dL POC Glucose (mg/dL) 105 (70-110) mg/dL POC Glu Lacrosse Player ID Love Cerda Plasma Lactic Acid Manuel (0.7-2.0) mmol/L Calcium (8.4-10.2) mg/dL Total Bilirubin (0.2-1.3) mg/dL AST (14-36) U/L ALT (4-34) U/L Alkaline Phosphatase (38-126) U/L NT-Pro-B Natriuret Pep pg/mL Total Protein (6.3-8.2) g/dL Albumin (3.5-5.0) g/dL Urine Color Urine Appearance (Clear) Urine pH (5.0-8.0) Ur Specific [place] (1.001-1.035) Urine Protein (Negative) Urine Glucose (UA) (Negative) Urine Ketones (Negative) Urine Blood (Negative) Urine Nitrite (Negative) Urine Bilirubin (Negative) Urine Urobilinogen (<2.0) mg/dL Ur Leukocyte Esterase (Negative) Urine RBC (0-5) /hpf Urine WBC (0-5) /hpf Calcium Oxalate Crystal (None) /hpf Urine Bacteria (None) /hpf Hyaline Casts (0-2) /lpf Urine Mucus (None) /hpf Urine Yeast (Budding) (None) /hpf Influenza Type A (PCR) Not Detected (Not Detectd) Influenza Type B (PCR) Not Detected (Not Detectd) RSV (PCR) Not Detected (Not Detectd) SARS-CoV-2 (PCR) Not Detected (Not Detectd) Disposition <Irish Cates - Last Filed: 07/04/23 23:50> <Dewayne Petersen - Last Filed: 07/05/23 02:20> Clinical Impression: Altered mental status, UTI (urinary tract infection), Surgical site infection Disposition: ADMITTED IP TO THIS HOSP Condition: Serious
[2023-07-04 19:54] LABS: Anisocytosis Slight; Basophils % (A) 0 %; Eosinophils # (A) 0.2 k/uL (0-0.7); Eosinophils % (A) 1 %; HCT 26.2 % (34.0-46.0); HGB 8.1 gm/dL (11.4-16.0); Hypochromasia Slight; Lymphocytes # (A) 0.8 k/uL (1.0-4.8); Lymphocytes % (A) 8 %; MCH 29.6 pg (25.0-35.0); MCHC 30.9 g/dL (31.0-37.0); MCV 95.6 fL (80.0-100.0); Mean Platelet Volume 7.6; Monocytes # (A) 0.7 k/uL (0-1.0); Monocytes % (A) 7 %; Neutrophils # (A) 8.8 k/uL (1.3-7.7); Neutrophils % (A) 84 %; Platelet Count 431 k/uL (150-450); RBC 2.74 m/uL (3.80-5.40); RDW 16.2 % (11.5-15.5); WBC 10.5 k/uL (3.8-10.6)
--- NOTE | 2023-07-04 20:02 | XR ---
EXAMINATION TYPE: XR chest 2V DATE OF EXAM: 07/04/2023 7:48 PM CLINICAL INDICATION:Female, 68 years old with history of altered mental status; [facility] COMPARISON: Chest radiographs from 06/19/2023 TECHNIQUE: XR chest 2V Frontal and lateral views of the chest. FINDINGS: Lungs/Pleura: Low lung volumes are present. There is no evidence of pleural effusion, focal consolida tion, or pneumothorax. Pulmonary vascularity: Unremarkable. Heart/mediastinum: Cardiomediastinal silhouette is enlarged and stable. Musculoskeletal: No acute osseous pathology. IMPRESSION: 1. Haziness of lungs correlate with serum BNP for congestive heart failure. 2. Post fixation changes to the spine. Hardware appears intact.
[2023-07-04 20:03] LABS: ALT 12 U/L (4-34); AST 21 U/L (14-36); African American GFR (CKD) >90 (>60 ml/min/1.73 sqM); Alkaline Phosphatase 251 U/L (38-126); Anion Gap 0 mmol/L; Blood Urea Nitrogen 8 mg/dL (7-17); Carbon Dioxide 26 mmol/L (22-30); Chloride 106 mmol/L (98-107); Glucose 99 mg/dL (74-99); Non-African American GFR(CKD) >90 (>60 ml/min/1.73 sqM); Potassium 4.4 mmol/L (3.5-5.1); Sodium 132 mmol/L (137-145); Total Bilirubin 0.5 mg/dL (0.2-1.3); Total Protein 4.4 g/dL (6.3-8.2)
[2023-07-04 20:10] LABS: INR 1.8 (<1.2); Partial Thromboplastin Time 44.8 sec (22.0-30.0); Prothrombin Time 18.1 sec (10.0-12.5)
--- NOTE | 2023-07-04 20:22 | CT ---
EXAMINATION TYPE: CT brain cspine wo con CT DLP: 1389.9 mGycm, Automated exposure control for dose reduction was used. DATE OF EXAM: 07/04/2023 8:01 PM COMPARISON: None. CLINICAL INDICATION:Female, 68 years old with history of fall; Unwitnessed fall, on thinners, AMS. TECHNIQUE: Brain: Multiple axial CT images of the brain were obtained without IV contrast. Cspine: Axial CT images from the skull base to the inferior aspect of T2 we obtained without intraven ous contrast. Coronal and sagittal reformatted images were also reviewed. FINDINGS: Brain: Extra-axial spaces: No abnormal extra-axial fluid collections. Ventricular system: Dilatation in proportion to cerebral atrophy. Cerebral parenchyma: Cerebral atrophy. No acute intraparenchymal hemorrhage or mass effect. The jaramillo -white junction is well differentiated. Scattered hypoattenuating areas are seen within the white mat ter. Cerebellum: Unremarkable. Mass effect: No evidence of midline shift. Intracranial vasculature: Atherosclerotic calcifications of the intracranial vessels. Soft tissues: Normal. Calvarium/osseous structures: No depressed skull fracture. Paranasal sinuses and mastoid air cells: Clear. Visualized orbits: Orbital contents are intact. Cervical spine: Fracture: There is questionable superior endplate deformity of the T2 vertebral body best appreciated on sagittal imaging series through 4 image 44 and series 303 image 52. Osseous structures: Multilevel degenerative disc disease changes with endplate spurring and disc oste ophyte complex's. Vertebral alignment: Within normal limits. Spinal canal/Neural Foramina: No evidence of significant spinal canal narrowing. No evidence for sign ificant neural foraminal stenosis. Neck soft tissues: Prevertebral soft tissues are within normal limits. Other: The airway is patent. The lung apices are clear. IMPRESSION: 1. No acute intracranial process. 2. There is some buckling of the T2 vertebral body with possible superior endplate deformity suspici ous for fracture. 3. Moderate to severe degeneration changes. 4. Nonspecific white matter changes and mild cerebral atrophy.
[2023-07-04 20:49] LABS: Appearance,Urine Cloudy (Clear); Bacteria,Urine Rare /hpf; Bilirubin,Urine Negative (Negative); Blood,Urine Small (Negative); Budding Yeast,Urine Few /hpf; Calcium Oxalate Crystals,Urine Rare /hpf; Color,Urine Light Yellow; Glucose,Urine (UA) Negative (Negative); Hyaline Casts,Urine 2 /lpf (0-2); Ketones,Urine Trace (Negative); Leukocyte Esterase,Urine Large (Negative); Mucus,Urine Many /hpf; Nitrite,Urine Negative (Negative); PH, Urine 6.5 (5.0-8.0); Protein,Urine Trace (Negative); RBC,Urine 43 /hpf (0-5); Specific Gravity,Urine 1.017 (1.001-1.035); Urobilinogen,Urine <2.0 mg/dL (<2.0); WBC,Urine 125 /hpf (0-5)
--- NOTE | 2023-07-04 21:21 | CT ---
EXAMINATION TYPE: CT thor lumbar spine w con CT DLP: 0.7 mGycm, Automated exposure control for dose reduction was used. DATE OF EXAM: 07/04/2023 8:48 PM COMPARISON: 06/20/2023.. CLINICAL INDICATION:Female, 68 years old with history of infection; PHH, recent spine surgery, r/o in fection TECHNIQUE: Multiple axial images were obtained from the midportion of T11 through the sacroiliac greta nts. Soft tissue and bone windows in coronal and sagittal planes were obtained and reviewed. 3-D ref ormats of the bones were created on a separate workstation and submitted for review. Contrast used:100 ml mL of Isovue 370 with IV Contrast, (None, if empty). Oral contrast used: (None, if empty). FINDINGS: Postsurgical alignment of the spine. Degeneration changes of the spine with joint space narrowing, os teophyte formation and facet joint arthropathy. Fixation changes throughout the spine hardware appear s intact. Vertebroplasty changes are also present. Dissecting at L3-L4 through L5-S1. Streak artifact limits evaluation at these levels. Given extensive hardware evaluation of the spinal canal where vis ualized appears grossly patent. The neural foramen are grossly patent where visualized. No evidence o f fracture. There is a probable surgical bed seroma in the lower spine which is poorly visualized due to streak artifact. This may measure at least 5.0 x 2.7 cm and is poorly seen to measure its caudocr anial dimension due to streak artifact. Small peripherally enhancing fluid correction measuring 20 x 12 x 20 mm on series 202 image 10 in the upper aspect of the margin of the surgical bed. There is phl egmonous change also present around this region.r Other: Small bilateral pleural effusions with atelectasis changes. Scattered colonic diverticula. The re is large stool burden throughout the colon. IMPRESSION: 1. Small organizing fluid collection the upper back favored represent small abscess. Consider ultras ound imaging. 2. Multilevel fixation changes of the spine with hardware in place. Hardware appears intact.
[2023-07-04] MEDS: FUROSEMIDE 10 MG/ML 4 ML VIAL IV STA (21:22)
[2023-07-04] MEDS: PIPERACILLIN-TAZOBACTAM 3.375 GM in SODIUM CHLORIDE 0.9% 100 ML IVPB STA (21:22)
[2023-07-04] MEDS ORDERED: VANCOMYCIN IV PER PHARMACY 1 EACH MISC MISCELLANE PRN (21:28)
[2023-07-04] MEDS: VANCOMYCIN 1,000 MG in SODIUM CHLORIDE 0.9% 250 ML IVPB ONE (22:11)
[2023-07-04] MEDS: SODIUM CHLORIDE 0.9% 500 ML 500 ML IV ONE (22:30)
[2023-07-04] MEDS: SODIUM CHLORIDE 0.9% 1,000 ML IV SCH ×2 (22:30→22:42)
[2023-07-04] MEDS: NALOXONE 0.4 MG/ML 1 ML VIAL IVP STA ×2 (22:59→23:09)
[2023-07-04 23:06] LABS: Glucose,Whole Blood 105 mg/dL (70-110)
[2023-07-04] MEDS ORDERED: NALOXONE 0.4 MG/ML 1 ML VIAL IV PRN (23:34)
[2023-07-05] MEDS: MORPHINE SULFATE 2 MG/ML SYRINGE IV STA (01:42)
[2023-07-05] MEDS: VANCOMYCIN 1,000 MG in SODIUM CHLORIDE 0.9% 250 ML IVPB SCH (02:45)
[2023-07-05] MEDS ORDERED: CYCLOBENZAPRINE 5 MG TAB PO PRN (08:54)
[2023-07-05] MEDS ORDERED: NON FORMULARY DRUG (Linaclotide [Linzess] 145 MCG Capsule) PO PRN (08:54)
[2023-07-05] MEDS: lamoTRIgine 100 MG TAB PO SCH (09:26)
[2023-07-05] MEDS: QUEtiapine 50 MG TAB PO SCH (09:26)
[2023-07-05] MEDS: carvediloL 6.25 MG TAB PO SCH (09:26)
[2023-07-05] MEDS: LEVOTHYROXINE 25 MCG TAB PO SCH (09:26)
[2023-07-05] MEDS: ACETAMINOPHEN TAB 325 MG TAB PO PRN (09:26)
[2023-07-05] MEDS: PIPERACILLIN-TAZOBACTAM 3.375 GM in SODIUM CHLORIDE 0.9% 100 ML IVPB SCH (09:27)
[2023-07-05] MEDS: ENOXAPARIN 60 MG/0.6 ML SYRINGE SQ SCH (09:58)
[2023-07-05] MEDS: SODIUM CHLORIDE TAB 1 GM TAB PO SCH (09:59)
--- NOTE | 2023-07-05 12:24 | P.HPIM ---
History of Present Illness H&P Date: 07/05/23 Chief Complaint: S/p fall confusion * 68-year-old patient with past medical history significant for degenerative disease of spine recent spine surgery, history of pulm embolism, bipolar disorder, hypertension, presents to the emergency department from [facility] with complaints of altered mental status and a fall. Patient had an unwitnessed fall at the facility. Patient has been on Xarelto and had a CT head done which was negative for acute intracranial process. CT cervical spine does show degenerative changes Some bulking of T2 vertebral body noted concern for superior endplate deformity. CT thoracic spine was reviewed which showed small localizing fluid collection in the upper back concern for abscess. Multilevel degenerative changes were noted. * Blood work obtained in ER showed CBC with WBC count of 10.5, hemoglobin 8.1 platelet count of 431, INR of 1.8. Serum chemistry 132 potassium 4.4, dioxide 26 BUN 8 creatinine 0.24 calcium of 8 * Urinalysis obtained did show large amount of leukocyte esterase WBC bacteria noted * Patient tested negative for influenza COVID and RSV * ER patient continued to have altered mentation for which patient was given a dose of Narcan with some improvement * Patient admitted to medical floor with consultation from orthospine as well as infectious disease REVIEW OF SYSTEMS: Limited secondary to altered mentation PHYSICAL EXAMINATION: GENERAL: The patient is alert and oriented x 0 , HEENT: Pupils are round and equally reacting to light. EOMI. CARDIOVASCULAR: S1 and S2 present. No murmurs, rubs, or gallops. PULMONARY: Chest is clear to auscultation, no wheezing or crackles. ABDOMEN: Soft, nontender, nondistended, normoactive bowel sounds. No palpable organomegaly. MUSCULOSKELETAL: No joint swelling or deformity. EXTREMITIES: No cyanosis, clubbing, or pedal edema. NEUROLOGICAL: Disoriented SKIN: Surgical wound wound VAC in place Assessment and plan * Acute toxic metabolic encephalopathy * Polypharmacy * S/p fall suspect compression fracture of thoracic spine * Postoperative fluid collection rule out abscess * Urinary tract infection * History of bipolar disorder * Chronic pulmonary embolism * Hypothyroid * Essential hypertension * In regards to acute metabolic encephalopathy, CT head negative for acute intracranial process, patient on multiple medications contributing to enc ephalopathy including narcotics, benzodiazepines Seroquel. Continue treatment for urinary tract infection and monitor for improvement patient was recently hospitalized and discharged on 06/26/2023 during that hospitalization patient had delirium as well * In regards to fall patient will need physical therapy Occupational Therapy evaluation maintain fall precautions * In regards to postoperative fluid collection, infectious disease and orthospine consulted to evaluate seroma versus abscess * In regards to urinary tract infection follow-up on blood cultures and urine cultures continue IV antibiotic Zosyn and vancomycin * Regards to history of bipolar disorder continue patient on Lamictal and Seroqu el * In regards to pulmonary embolism continue patient on Lovenox therapeutic dosing, Xarelto on hold in anticipation of surgical intervention * In regards to hypertension continue Coreg. CODE STATUS is full code * Past Medical History Past Medical History: No Reported History Additional Past Medical History / Comment(s): IRON DEFICIENCY ANEMIA. History of Any Multi-Drug Resistant Organisms: None Reported Past Surgical History: Back Surgery, Bariatric Surgery, Orthopedic Surgery Additional Past Surgical History / Comment(s): right shoulder, left shoulder, gastric bypass Past Anesthesia/Blood Transfusion Reactions: No Reported Reaction Past Psychological History: Anxiety, Bipolar, Depression Smoking Status: Never smoker Past Alcohol Use History: Abuse Additional Past Alcohol Use History / Comment(s): Pt. drank 3 times a week heavily for 10 yrs. and quit 2 yrs. ago. Past Drug Use History: Prescription Drug Abuse Additional Drug Use History / Comment(s): Pt. admits to overusing prescription Treece 7.5/325 mg's. and Keppra. - Past Family History Mother Family Medical History: No Reported History Sister(s) Family Medical History: Pulmonary Embolus Medications and Allergies Home Medications Medication Instructions Recorded Confirmed Type lamoTRIgine [LaMICtal] 200 mg PO BID 30 Days #60 tablet 02/08/18 07/04/23 Rx Cyclobenzaprine [Flexeril] 5 mg PO Q8H PRN 05/12/23 07/04/23 History Ergocalciferol [Vitamin D2 (1250 1,250 mcg PO FR 05/12/23 07/04/23 History Mcg = 14072 Iu)] Linaclotide [Linzess] 145 mcg PO DAILY PRN 05/12/23 07/04/23 History Acetaminophen Tab [Tylenol] 650 mg PO Q6HR PRN tab 05/23/23 07/04/23 Rx Rivaroxaban [Xarelto] 20 mg PO W/SUPPER tab 05/23/23 07/04/23 Rx Sodium Chloride Tab 1 gm PO BID tab 05/23/23 07/04/23 Rx carvediloL [Coreg] 6.25 mg PO BID-W/MEALS tab 05/23/23 07/04/23 Rx Healthshake 1 dose PO TID@0800,1200,1800 06/19/23 07/04/23 History Magnesium Hydroxide [Milk of 2,400 mg PO Q72H PRN 06/19/23 07/04/23 History Magnesia] traZODone HCL [Desyrel] 50 mg PO HS 06/19/23 07/04/23 History QUEtiapine [SEROquel] 50 mg PO DAILY #0 06/26/23 07/04/23 Rx LORazepam [Ativan] 0.5 mg PO Q12HR@0800,2000 PRN 07/04/23 07/04/23 History Levothyroxine Sodium [Synthroid] 25 mcg PO DAILY 07/04/23 07/04/23 History Naloxone HCl [Narcan] 4 mg NASAL DIRECTED PRN 07/04/23 07/04/23 History QUEtiapine [SEROquel] 400 mg PO HS 07/04/23 07/04/23 History Sennosides/Docusate Sodium [Senna 1 cap PO DAILY 07/04/23 07/04/23 History Plus 8.6-50 mg Softgel] cefaDROXiL [Duricef] 500 mg PO Q12HR 07/04/23 07/04/23 History oxyCODONE-APAP 10-325MG [Percocet 1 tab PO Q6H 07/04/23 07/04/23 History 10-325 mg] Allergies Allergy/AdvReac Type Severity Reaction Status Date / Time No Known Allergies Allergy Verified 07/04/23 20:10 Physical Exam Vitals: Vital Signs Temp Pulse Pulse Resp BP BP Pulse Ox 07/05/23 08:54 98.7 F 98 19 148/90 98 07/05/23 03:03 97.9 F 86 20 135/92 94 L 07/05/23 01:20 91 16 125/90 96 07/05/23 00:16 90 119/102 97 07/04/23 23:22 87 15 121/89 96 07/04/23 23:09 12 03/16/24 23:00 68 12 95/60 99 07/04/23 22:59 12 07/04/23 22:42 71 12 82/50 98 07/04/23 22:00 72 16 91/63 100 07/04/23 20:48 82 15 136/82 99 07/04/23 19:57 81 16 125/81 98 07/04/23 19:12 98.0 F 87 17 123/76 95 Intake and Output 07/04/23 07/05/23 07/05/23 22:59 06:59 14:59 Intake Total 0 Output Total 1000 4300 Balance -1000 -4300 Intake: Oral 0 Output: Urine 1000 4300 Uretheral (Almendarez) 1000 3800 Other: Voiding Method Indwelling Catheter Weight 54.431 kg 54.431 kg Results CBC & Chem 7: 07/04/23 19:44 07/04/23 19:44 Labs: Abnormal Lab Results - Last 24 Hours (Table) 07/04/23 07/04/23 07/04/23 Range/Units 19:44 19:44 19:44 RBC 2.74 L (3.80-5.40) m/uL Hgb 8.1 L (11.4-16.0) gm/dL Hct 26.2 L (34.0-46.0) % MCHC 30.9 L (31.0-37.0) g/dL RDW 16.2 H (11.5-15.5) % Neutrophils # 8.8 H (1.3-7.7) k/uL Lymphocytes # 0.8 L (1.0-4.8) k/uL PT 18.1 H (10.0-12.5) sec INR 1.8 H (<1.2) APTT 44.8 H (22.0-30.0) sec Sodium (137-145) mmol/L Creatinine (0.52-1.04) mg/dL Calcium (8.4-10.2) mg/dL Alkaline Phosphatase (38-126) U/L Total Protein (6.3-8.2) g/dL Albumin (3.5-5.0) g/dL Urine Appearance Cloudy H (Clear) Urine Protein Trace H (Negative) Urine Ketones Trace H (Negative) Urine Blood Small H (Negative) Ur Leukocyte Esterase Large H (Negative) Urine RBC 43 H (0-5) /hpf Urine WBC 125 H (0-5) /hpf Calcium Oxalate Crystal Rare H (None) /hpf Urine Bacteria Rare H (None) /hpf Urine Mucus Many H (None) /hpf Urine Yeast (Budding) Few H (None) /hpf 07/04/23 Range/Units 19:44 RBC (3.80-5.40) m/uL Hgb (11.4-16.0) gm/dL Hct (34.0-46.0) % MCHC (31.0-37.0) g/dL RDW (11.5-15.5) % Neutrophils # (1.3-7.7) k/uL Lymphocytes # (1.0-4.8) k/uL PT (10.0-12.5) sec INR (<1.2) APTT (22.0-30.0) sec Sodium 132 L (137-145) mmol/L Creatinine 0.24 L (0.52-1.04) mg/dL Calcium 8.0 L (8.4-10.2) mg/dL Alkaline Phosphatase 251 H (38-126) U/L Total Protein 4.4 L (6.3-8.2) g/dL Albumin 2.0 L (3.5-5.0) g/dL Urine Appearance (Clear) Urine Protein (Negative) Urine Ketones (Negative) Urine Blood (Negative) Ur Leukocyte Esterase (Negative) Urine RBC (0-5) /hpf Urine WBC (0-5) /hpf Calcium Oxalate Crystal (None) /hpf Urine Bacteria (None) /hpf Urine Mucus (None) /hpf Urine Yeast (Budding) (None) /hpf
--- NOTE | 2023-07-05 12:26 | P.CNOR ---
History of Present Illness - HPI Consult date: 07/05/23 Requesting physician: Irish Caets Consult reason: other (Post-op abscess) History of present illness: History of Presenting Illness Patient is a Pleasantly confused 68 year female who presented to the ER via EMS. Patient was brought in from [facility] due to increased confusion. It is reported that patient had an unwitnessed fall at the facility. She is on Xarelto for history of pulmonary embolism. Patient has a very extensive history involving her back, she underwent an original [id number] decompression and fusion by Dr. Flores in mid March 2023. Patient has been in and out of the hospital many times since then and been at rehab. She has had multiple urinary tract infections. She had also fallen at the facility in April 2023 which resulted in a burst fracture at T9. Patient underwent a T6-T10 posterior stabilization with ORIF at T9 on May 15, 2023. Patient has had a steadily declining altered mental status for several weeks. It is reported by patients son that she has not been provided daily PT recently due to her mentation and inability to participate. Upon assessment this morning at 0625 patient was unable to answer any questions. She was very lethargic. Dressing was present over the thoracic spine. Surgical incision is well approximated with sutures intact. Scant serous drainage on dressing, No active drainage noted. Incision area presents with erythema due to constant pressure on incision. Patient was seen and examined again this morning at 10:00. Patient's son was present in the room. He has concerns that his mother has had a stroke in the recent past. He is requesting a Neurology consult, this is appropriate due to change in mental status and patient's aphasia of word salad. Patient is more alert than she was with morning. Patient's son states this is the best he has seen her in the past few days. He states that patient has been very lethargic at the facility and unable to participate in physical therapy. Discussed with patient and family the decision for placing a Prevena wound vac over thoracic incision. RN was able to assist with turning patient and wound vac was applied. CT of the thoracic or lumbar spine taken on 07/04/2023 demonstrates A small organizing clot collection in the upper back favored that represents a small abscess. Consider further imaging with an ultrasound. There is multilevel fixation changes of the spine with hardware in place. Hardware appears intact. Review of Systems Pertinent positives and negatives as discussed in HPI, a complete review of systems was performed and all other systems are negative. Physical Examination Inspection: Negative for any open fractures. Surgical incision to the thoracic spine, edges are well approximated with sutures intact. Incisional area presents with erythema. Sensation: Sensation is equal, symmetric, bilaterally intact throughout the upper and lower extremities Palpation: Nontender to palpation throughout bilateral upper and lower extremities and throughout spine exam Range of motion: Patient does have full range of motion bilateral upper and lower extremities on exam Motor: 4/5 in all major motor groups in the bilateral upper and lower extremities Special tests: Negative Homans bilaterally. Negative Chucky bilaterally. Negative clonus bilaterally. Neurovascular: Radial pulse intact, 2+ bilaterally. Cap refill under 3 seconds in digits upper extremities. Assessment and Plan Previous Revision T6T10 posterior stabilization with ORIF at T9 Previous [id number] decompression and fusion Delayed wound healing Multiple complex comorbidities At this time we do not recommend any emergent/urgent orthopedic surgical intervention. Prevena wound VAC has been applied to the thoracic incision. Sed rate and CRP have been ordered. Reposition patient every 2 hours to keep pressure off of her back, position with pillows. Continue with IV antibiotics. 2. Appreciate medical management 3. Pain management - Tylenol and Flexeril 4. GI prophylaxis - per medicine 5. DVT prophylaxis - Lovenox 6. PT/OT - weightbearing as tolerated with a walker as needed. 7. Appreciate consult I reviewed and discussed this case with my attending Dr. Flores, whom has reviewed this chart and films and is in agreement with assessment and plan of care as outlined above. I have personally seen and examined the patient, performed the documentation and the assessment and plan as written. Number of minutes spent on the visit: 30m. Past Medical History Past Medical History: No Reported History Additional Past Medical History / Comment(s): IRON DEFICIENCY ANEMIA. History of Any Multi-Drug Resistant Organisms: None Reported Past Surgical History: Back Surgery, Bariatric Surgery, Orthopedic Surgery Additional Past Surgical History / Comment(s): right shoulder, left shoulder, gastric bypass Past Anesthesia/Blood Transfusion Reactions: No Reported Reaction Past Psychological History: Anxiety, Bipolar, Depression Smoking Status: Never smoker Past Alcohol Use History: Abuse Additional Past Alcohol Use History / Comment(s): Pt. drank 3 times a week heavily for 10 yrs. and quit 2 yrs. ago. Past Drug Use History: Prescription Drug Abuse Additional Drug Use History / Comment(s): Pt. admits to overusing prescription Pearson 7.5/325 mg's. and Keppra. - Past Family History Mother Family Medical History: No Reported History Sister(s) Family Medical History: Pulmonary Embolus Medications and Allergies Home Medications Medication Instructions Recorded Confirmed Type lamoTRIgine [LaMICtal] 200 mg PO BID 30 Days #60 tablet 02/08/18 07/04/23 Rx Cyclobenzaprine [Flexeril] 5 mg PO Q8H PRN 05/12/23 07/04/23 History Ergocalciferol [Vitamin D2 (1250 1,250 mcg PO FR 05/12/23 07/04/23 History Mcg = 60028 Iu)] Linaclotide [Linzess] 145 mcg PO DAILY PRN 05/12/23 07/04/23 History Acetaminophen Tab [Tylenol] 650 mg PO Q6HR PRN tab 05/23/23 07/04/23 Rx Rivaroxaban [Xarelto] 20 mg PO W/SUPPER tab 05/23/23 07/04/23 Rx Sodium Chloride Tab 1 gm PO BID tab 05/23/23 07/04/23 Rx carvediloL [Coreg] 6.25 mg PO BID-W/MEALS tab 05/23/23 07/04/23 Rx Healthshake 1 dose PO TID@0800,1200,1800 06/19/23 07/04/23 History Magnesium Hydroxide [Milk of 2,400 mg PO Q72H PRN 06/19/23 07/04/23 History Magnesia] traZODone HCL [Desyrel] 50 mg PO HS 06/19/23 07/04/23 History QUEtiapine [SEROquel] 50 mg PO DAILY #0 06/26/23 07/04/23 Rx LORazepam [Ativan] 0.5 mg PO Q12HR@0800,2000 PRN 07/04/23 07/04/23 History Levothyroxine Sodium [Synthroid] 25 mcg PO DAILY 07/04/23 07/04/23 History Naloxone HCl [Narcan] 4 mg NASAL DIRECTED PRN 07/04/23 07/04/23 History QUEtiapine [SEROquel] 400 mg PO HS 07/04/23 07/04/23 History Sennosides/Docusate Sodium [Senna 1 cap PO DAILY 07/04/23 07/04/23 History Plus 8.6-50 mg Softgel] cefaDROXiL [Duricef] 500 mg PO Q12HR 07/04/23 07/04/23 History oxyCODONE-APAP 10-325MG [Percocet 1 tab PO Q6H 07/04/23 07/04/23 History 10-325 mg] Allergies Allergy/AdvReac Type Severity Reaction Status Date / Time No Known Allergies Allergy Verified 07/04/23 20:10 Results - Labs Labs: Abnormal Lab Results - Last 24 Hours (Table) 07/04/23 07/04/23 07/04/23 Range/Units 19:44 19:44 19:44 RBC 2.74 L (3.80-5.40) m/uL Hgb 8.1 L (11.4-16.0) gm/dL Hct 26.2 L (34.0-46.0) % MCHC 30.9 L (31.0-37.0) g/dL RDW 16.2 H (11.5-15.5) % Neutrophils # 8.8 H (1.3-7.7) k/uL Lymphocytes # 0.8 L (1.0-4.8) k/uL PT 18.1 H (10.0-12.5) sec INR 1.8 H (<1.2) APTT 44.8 H (22.0-30.0) sec Sodium (137-145) mmol/L Creatinine (0.52-1.04) mg/dL Calcium (8.4-10.2) mg/dL Alkaline Phosphatase (38-126) U/L Total Protein (6.3-8.2) g/dL Albumin (3.5-5.0) g/dL Urine Appearance Cloudy H (Clear) Urine Protein Trace H (Negative) Urine Ketones Trace H (Negative) Urine Blood Small H (Negative) Ur Leukocyte Esterase Large H (Negative) Urine RBC 43 H (0-5) /hpf Urine WBC 125 H (0-5) /hpf Calcium Oxalate Crystal Rare H (None) /hpf Urine Bacteria Rare H (None) /hpf Urine Mucus Many H (None) /hpf Urine Yeast (Budding) Few H (None) /hpf 07/04/23 Range/Units 19:44 RBC (3.80-5.40) m/uL Hgb (11.4-16.0) gm/dL Hct (34.0-46.0) % MCHC (31.0-37.0) g/dL RDW (11.5-15.5) % Neutrophils # (1.3-7.7) k/uL Lymphocytes # (1.0-4.8) k/uL PT (10.0-12.5) sec INR (<1.2) APTT (22.0-30.0) sec Sodium 132 L (137-145) mmol/L Creatinine 0.24 L (0.52-1.04) mg/dL Calcium 8.0 L (8.4-10.2) mg/dL Alkaline Phosphatase 251 H (38-126) U/L Total Protein 4.4 L (6.3-8.2) g/dL Albumin 2.0 L (3.5-5.0) g/dL Urine Appearance (Clear) Urine Protein (Negative) Urine Ketones (Negative) Urine Blood (Negative) Ur Leukocyte Esterase (Negative) Urine RBC (0-5) /hpf Urine WBC (0-5) /hpf Calcium Oxalate Crystal (None) /hpf Urine Bacteria (None) /hpf Urine Mucus (None) /hpf Urine Yeast (Budding) (None) /hpf H & H 07/04/23 Range/Units 19:44 Hgb 8.1 L (11.4-16.0) gm/dL Hct 26.2 L (34.0-46.0) % Coagulation 07/04/23 Range/Units 19:44 INR 1.8 H (<1.2) Result Diagrams: 07/04/23 19:44 07/04/23 19:44
[2023-07-05] MEDS: Acetaminophen-Codeine 300-30mg TAB PO PRN (12:59)
[2023-07-05] MEDS ORDERED: MORPHINE SULFATE 2 MG/ML SYRINGE IVP PRN (14:14)
[2023-07-05] MEDS ORDERED: oxyCODONE-APAP 5-325MG 1 EACH TAB PO PRN (14:17)
[2023-07-05] MEDS: LORazepam 0.5 MG TAB PO PRN (14:24)
--- NOTE | 2023-07-05 15:43 | P.CNNES ---
History of Present Illness Consult date: 07/05/23 Requesting physician: Makayla Salas Reason for Consult: aphasia History of Present Illness: This is a 68-year-old woman who presents to the emergency department via EMS from [facility] because of increased confusion. History is obtained from the patient's daughter as well as LOGISTICS OPERATIONS MANAGER from orthopedic team. It seems that the patient has chronic lower back pain and had lower back surgery in March 2023 and post surgery she's been having worsening confusion with speech difficulty. Since that she underwent T10/pelvis decompression and fusion by Dr. Gillette in March 2023. She did have multiple urinary tract infection. She also had another fall in April 2023 which resulted in burst fracture at T9 and underwent T6 to T10 posture stabilization with ORIF in 05/15/2023. She's been in and out of the hospital multiple times for the increased confusion as as stated above she had multiple urinary tract infection. The seems that her confusion and it is worse and according to the daughter she was alert oriented talking normally prior to the March 2023 surgery and was doing well. She gonzalez s not have any underlying official diagnosis of dementia. But since the surgery she's been having some word finding difficulties with confusion. Per the daughter she does not have any history of strokes in the past. Some of the workup during his hospital visit consisted of: ESR is 13 CT of the head is reported as no acute intracranial process. Nonspecific white matter changes and the mild cerebral atrophy. CT cervical spine is reported as some buckling of the T2 vertebral body with possible superior endplate deformity suspicious for fracture. Moderate to severe degeneration changes CT of thoracic lumbar is reported as small organization fluid collection in the upper back favored represent small abscess consider ultrasound imaging. Multilevel fixation changes of the spine with hardware in place. Hardware appears intact. Patient has a wound VAC that has been applied to the thoracic incision. Urinalysis it's cloudy, leukocyte esterase was large, urine white blood cell 125, urine bacteria is rare. Of note patient had vitamin B12 was end of May 2023 and it's 1024, red bloo d cell folate also around the same time is 840 TSH in June 2023 is 0.755 Review of Systems Limited but the positive and negative as per HPI Past Medical History Past Medical History: No Reported History Additional Past Medical History / Comment(s): IRON DEFICIENCY ANEMIA. History of Any Multi-Drug Resistant Organisms: None Reported Past Surgical History: Back Surgery, Bariatric Surgery, Orthopedic Surgery Additional Past Surgical History / Comment(s): right shoulder, left shoulder, gastric bypass Past Anesthesia/Blood Transfusion Reactions: No Reported Reaction Past Psychological History: Anxiety, Bipolar, Depression Smoking Status: Never smoker Past Alcohol Use History: Abuse Additional Past Alcohol Use History / Comment(s): Pt. drank 3 times a week heavily for 10 yrs. and quit 2 yrs. ago. Past Drug Use History: Prescription Drug Abuse Additional Drug Use History / Comment(s): Pt. admits to overusing prescription [place] 7.5/325 mg's. and Keppra. - Past Family History Mother Family Medical History: No Reported History Sister(s) Family Medical History: Pulmonary Embolus Medications and Allergies Home Medications Medication Instructions Recorded Confirmed Type lamoTRIgine [LaMICtal] 200 mg PO BID 30 Days #60 tablet 02/08/18 07/04/23 Rx Cyclobenzaprine [Flexeril] 5 mg PO Q8H PRN 05/12/23 07/04/23 History Ergocalciferol [Vitamin D2 (1250 1,250 mcg PO FR 05/12/23 07/04/23 History Mcg = 73172 Iu)] Linaclotide [Linzess] 145 mcg PO DAILY PRN 05/12/23 07/04/23 History Acetaminophen Tab [Tylenol] 650 mg PO Q6HR PRN tab 05/23/23 07/04/23 Rx Rivaroxaban [Xarelto] 20 mg PO W/SUPPER tab 05/23/23 07/04/23 Rx Sodium Chloride Tab 1 gm PO BID tab 05/23/23 07/04/23 Rx carvediloL [Coreg] 6.25 mg PO BID-W/MEALS tab 05/23/23 07/04/23 Rx Healthshake 1 dose PO TID@0800,1200,1800 06/19/23 07/04/23 History Magnesium Hydroxide [Milk of 2,400 mg PO Q72H PRN 06/19/23 07/04/23 History Magnesia] traZODone HCL [Desyrel] 50 mg PO HS 06/19/23 07/04/23 History QUEtiapine [SEROquel] 50 mg PO DAILY #0 06/26/23 07/04/23 Rx LORazepam [Ativan] 0.5 mg PO Q12HR@0800,2000 PRN 07/04/23 07/04/23 History Levothyroxine Sodium [Synthroid] 25 mcg PO DAILY 07/04/23 07/04/23 History Naloxone HCl [Narcan] 4 mg NASAL DIRECTED PRN 07/04/23 07/04/23 History QUEtiapine [SEROquel] 400 mg PO HS 07/04/23 07/04/23 History Sennosides/Docusate Sodium [Senna 1 cap PO DAILY 07/04/23 07/04/23 History Plus 8.6-50 mg Softgel] cefaDROXiL [Duricef] 500 mg PO Q12HR 07/04/23 07/04/23 History oxyCODONE-APAP 10-325MG [Percocet 1 tab PO Q6H 07/04/23 07/04/23 History 10-325 mg] Allergies Allergy/AdvReac Type Severity Reaction Status Date / Time No Known Allergies Allergy Verified 07/04/23 20:10 Physical Examination - Vital Signs Vital Signs: Vital Signs Temp Pulse Pulse Resp BP BP Pulse Ox 07/05/23 14:43 97 18 07/05/23 11:25 97 18 109/68 97 07/05/23 10:48 98 19 07/05/23 08:54 98.7 F 98 19 148/90 98 07/05/23 03:03 97.9 F 86 20 135/92 94 L 07/05/23 01:20 91 16 125/90 96 07/05/23 00:16 90 119/102 97 07/04/23 23:22 87 15 121/89 96 07/04/23 23:09 12 07/04/23 23:00 68 12 95/60 99 07/04/23 22:59 12 07/04/23 22:42 71 12 82/50 98 07/04/23 22:00 72 16 91/63 100 07/04/23 20:48 82 15 136/82 99 07/04/23 19:57 81 16 125/81 98 07/04/23 19:12 98.0 F 87 17 123/76 95 Intake and Output 07/05/23 07/05/23 07/05/23 06:59 14:59 22:59 Intake Total 0 Output Total 4300 Balance -4300 Intake: Oral 0 Output: Urine 4300 Uretheral (Almendarez) 3800 Other: Voiding Method Indwelling Catheter Indwelling Catheter Weight 54.431 kg General: Lying in bed and is restless. Neuro: Limited because of overall cooperation. Patient is restless and seems agitated. She is oriented to self. She is having predominately expressive aphasia with some receptive. Upon showing her workup she stated water. She's able to follow simple commands such as sticking her tongue out showing thumbs up. The pupils are round equal reactive to light. Pupils are round 3 Saldana's bilaterally. Visual orourke was hard to assess because of her cooperation. She is tracking right and left. No facial weakness. No dysarthria Motor is hard to assess individual was restricted because of her cooperation. She is able to lift up all extremities above gravity. Hard to examine sensation because of her cooperation as well as reflexes. Results - Laboratory Findings CBC and BMP: 07/04/23 19:44 07/04/23 19:44 Abnormal Lab Findings: Abnormal Labs 07/04/23 07/04/23 07/04/23 19:44 19:44 19:44 RBC 2.74 L Hgb 8.1 L Hct 26.2 L MCHC 30.9 L RDW 16.2 H Neutrophils # 8.8 H Lymphocytes # 0.8 L PT 18.1 H INR 1.8 H APTT 44.8 H Sodium Creatinine Calcium Alkaline Phosphatase C-Reactive Protein Total Protein Albumin Urine Appearance Cloudy H Urine Protein Trace H Urine Ketones Trace H Urine Blood Small H Ur Leukocyte Esterase Large H Urine RBC 43 H Urine WBC 125 H Calcium Oxalate Crystal Rare H Urine Bacteria Rare H Urine Mucus Many H Urine Yeast (Budding) Few H 07/04/23 07/05/23 19:44 07:06 RBC Hgb Hct MCHC RDW Neutrophils # Lymphocytes # PT INR APTT Sodium 132 L Creatinine 0.24 L Calcium 8.0 L Alkaline Phosphatase 251 H C-Reactive Protein 18.6 H Total Protein 4.4 L Albumin 2.0 L Urine Appearance Urine Protein Urine Ketones Urine Blood Ur Leukocyte Esterase Urine RBC Urine WBC Calcium Oxalate Crystal Urine Bacteria Urine Mucus Urine Yeast (Budding) Assessment and Plan Assessment: This is a 68-year-old woman with history of back pain with surgery March 2023 and since the back surgery she's been having confusion that's worsening with the speech difficulty. She is a been in and out of the hospital because of her confusion. She had multiple urinary tract infection. She had a fall and gender 2023 and had burst fracture and T9 which she had the surgery afterwards as a result. On the current urine analysis is seems probable UTI and possible abscess in upper back on CT during this hospital admission. Patient confusion with aphasia seems more delirium from UTI as well as abscess. If patient had large stroke since has been having symptoms since or 04/2023 since surgery then I would have expected changes on CT head but no large old stroke seen. Probable acute UTI possible abscess lower back and patient has wound VAC Chronic lower back pain with unsteady gait status post [id number] decompression and fusion in March 2023 that the patient had a fall in 04/2023 and had fracture T9 then had surgery on 05/15/2023 History of recurrent UTIs History of pulmonary embolism on Xarelto Plan: I ordered MRI of the brain to rule out any acute or subacute stroke Seen on the CT. I Ordered a Routine EEG because of her continued confusion Patient had a recent TSH, vitamin B-12 and folate therefore I'll would not reorder Patient is on Seroquel 400 mg daily at bedtime and 50 mg daily. If possible avoid opiates and benzos Orthopedic is on board I'll defer the rest of the medical management to primary and other specialists The plan was discussed with the patient's daughter was at bedside as well as that the orthopedic N.P. Thank you for the consultation. Dr. Villasenor will resume neurology service tomorrow A.M. Time with Patient: Greater than 30
[2023-07-05] MEDS: CEFEPIME 2 GM in SODIUM CHLORIDE 0.9% 100 ML IVPB SCH (17:41)
[2023-07-05] MEDS: QUEtiapine 400 MG TAB PO SCH (20:03)
--- NOTE | 2023-07-05 20:46 | P.CONS ---
History of Present Illness - Reason for Consult Consult date: 07/05/23 UTI Requesting physician: Dewayne Petersen - Chief Complaint Mental status changes x 1 day - History of Present Illness Patient is a 68-year-old female past medical history anxiety bipolar depression, patient recently did have extensive T10 to pelvis decompression and fusion by Dr. Sheehan 7 in March 2023 subsequently patient did have a T9 burst fracture status post T6-10 posterior stabilization with ORIF on May 15, 2023 patient did have a recent admission to the hospital concerning for possible cellulitis infection to the thoracic spine area patient is status post I&D and cultures was negative patient was [facility] patient has been brought back to the hospital for fall and mental status changes apparently the patient did have unwitnessed fall at the [employer] of 39-year-old and noticed to have a worsening mental status changes confusion. Patient was brought back to the hospital on arrival to the ER patient was afebrile and no fever have recorded subsequently patient was not tachycardic hypotensive mildly hypoxic currently on room air patient did have a white count of 10.5 creatinine 0.24 liver isms are normal urine has been positive influenza RSV COVID testing was negative chest x-ray was haziness of the lungs correlate with serum BNP for congestive heart failure thoracic and l umbar spine CT did show small localizing fluid collection upper back favored represent small abscess patient was started on vancomycin and Zosyn admitted to hospital infectious disease was consulted for further management of antibiotic therapy most information has been obtained from review the chart talking nursing staff as patient was pleasantly confused and cannot provide any history no vomiting or diarrhea has been reported Review of Systems Positive points has been mentioned in HPI complete review could not be obtained because of his underlying mental status Past Medical History Past Medical History: No Reported History Additional Past Medical History / Comment(s): IRON DEFICIENCY ANEMIA. History of Any Multi-Drug Resistant Organisms: None Reported Past Surgical History: Back Surgery, Bariatric Surgery, Orthopedic Surgery Additional Past Surgical History / Comment(s): right shoulder, left shoulder, gastric bypass Past Anesthesia/Blood Transfusion Reactions: No Reported Reaction Past Psychological History: Anxiety, Bipolar, Depression Smoking Status: Never smoker Past Alcohol Use History: Abuse Additional Past Alcohol Use History / Comment(s): Pt. drank 3 times a week heavily for 10 yrs. and quit 2 yrs. ago. Past Drug Use History: Prescription Drug Abuse Additional Drug Use History / Comment(s): Pt. admits to overusing prescription [place] 7.5/325 mg's. and Keppra. - Past Family History Mother Family Medical History: No Reported History Sister(s) Family Medical History: Pulmonary Embolus Medications and Allergies Home Medications Medication Instructions Recorded Confirmed Type Cyclobenzaprine [Flexeril] 5 mg PO Q8H PRN 05/12/23 07/04/23 History Ergocalciferol [Vitamin D2 (1250 1,250 mcg PO FR 05/12/23 07/04/23 History Mcg = 75653 Iu)] Linaclotide [Linzess] 145 mcg PO DAILY PRN 05/12/23 07/04/23 History Rivaroxaban [Xarelto] 20 mg PO W/SUPPER tab 05/23/23 07/04/23 Rx Sodium Chloride Tab 1 gm PO BID tab 05/23/23 07/04/23 Rx carvediloL [Coreg] 6.25 mg PO BID-W/MEALS tab 05/23/23 07/04/23 Rx Healthshake 1 dose PO TID@0800,1200,1800 06/19/23 07/04/23 History Magnesium Hydroxide [Milk of 2,400 mg PO Q72H PRN 06/19/23 07/04/23 History Magnesia] Levothyroxine Sodium [Synthroid] 25 mcg PO DAILY 07/04/23 07/04/23 History Naloxone HCl [Narcan] 4 mg NASAL DIRECTED PRN 07/04/23 07/04/23 History QUEtiapine [SEROquel] 400 mg PO HS 07/04/23 07/04/23 History Sennosides/Docusate Sodium [Senna 1 cap PO DAILY 07/04/23 07/04/23 History Plus 8.6-50 mg Softgel] Acetaminophen Tab [Tylenol] 1,000 mg PO Q6HR PRN tab 07/14/23 Rx Folic Acid 1 mg PO DAILY@1200 tab 07/14/23 Rx Multivitamins, Thera [Multivitamin 1 each PO DAILY@1200 tab 07/14/23 Rx (formulary)] OLANZapine [ZyPREXA] 5 mg PO TID PRN tab 07/14/23 Rx QUEtiapine [SEROquel] 100 mg PO DAILY tab 07/14/23 Rx Thiamine [Vitamin B-1] 100 mg PO DAILY tab 07/14/23 Rx busPIRone HCl [Buspar] 10 mg PO TID tab 07/14/23 Rx traMADol HCl [Ultram] 50 mg PO QID PRN #4 tab 07/14/23 Rx Allergies Allergy/AdvReac Type Severity Reaction Status Date / Time No Known Allergies Allergy Verified 07/04/23 20:10 Physical Exam Vitals: Vital Signs Temp Pulse Pulse Resp BP BP Pulse Ox 07/05/23 11:25 97 18 109/68 97 07/05/23 10:48 98 19 07/05/23 08:54 98.7 F 98 19 148/90 98 07/05/23 03:03 97.9 F 86 20 135/92 94 L 07/05/23 01:20 91 16 125/90 96 07/05/23 00:16 90 119/102 97 07/04/23 23:22 87 15 121/89 96 07/04/23 23:09 12 07/04/23 23:00 68 12 95/60 99 07/04/23 22:59 12 07/04/23 22:42 71 12 82/50 98 07/04/23 22:00 72 16 91/63 100 07/04/23 20:48 82 15 136/82 99 07/04/23 19:57 81 16 125/81 98 07/04/23 19:12 98.0 F 87 17 123/76 95 Intake and Output 07/04/23 07/05/23 07/05/23 22:59 06:59 14:59 Intake Total 0 Output Total 1000 4300 Balance -1000 -4300 Intake: Oral 0 Output: Urine 1000 4300 Uretheral (Almendarez) 1000 3800 Other: Voiding Method Indwelling Catheter Indwelling Catheter Weight 54.431 kg 54.431 kg GENERAL DESCRIPTION: Elderly female lying in bed, no distress. No tachypnea or accessory muscle of respiration use. HEENT: Shows Pallor , no scleral icterus. Oral mucous membrane is dry. NECK: Trachea central, no thyromegaly. LUNGS: Unlabored breathing. Clear to auscultation anteriorly. No wheeze or crackle. HEART: S1, S2, regular rate and rhythm. No loud murmur ABDOMEN: Soft, no tenderness , guarding or rigidity, no organomegaly EXTREMITIES: No edema of feet. SKIN: No rash, no masses palpable. NEUROLOGICAL: The patient is lethargic orientation could not determine Results CBC & Chem 7: 07/12/23 06:45 07/12/23 06:45 Labs: Abnormal Lab Results - Last 24 Hours (Table) 07/04/23 07/04/23 07/04/23 Range/Units 19:44 19:44 19:44 RBC 2.74 L (3.80-5.40) m/uL Hgb 8.1 L (11.4-16.0) gm/dL Hct 26.2 L (34.0-46.0) % MCHC 30.9 L (31.0-37.0) g/dL RDW 16.2 H (11.5-15.5) % Neutrophils # 8.8 H (1.3-7.7) k/uL Lymphocytes # 0.8 L (1.0-4.8) k/uL PT 18.1 H (10.0-12.5) sec INR 1.8 H (<1.2) APTT 44.8 H (22.0-30.0) sec Sodium (137-145) mmol/L Creatinine (0.52-1.04) mg/dL Calcium (8.4-10.2) mg/dL Alkaline Phosphatase (38-126) U/L C-Reactive Protein (<1.0) mg/dL Total Protein (6.3-8.2) g/dL Albumin (3.5-5.0) g/dL Urine Appearance Cloudy H (Clear) Urine Protein Trace H (Negative) Urine Ketones Trace H (Negative) Urine Blood Small H (Negative) Ur Leukocyte Esterase Large H (Negative) Urine RBC 43 H (0-5) /hpf Urine WBC 125 H (0-5) /hpf Calcium Oxalate Crystal Rare H (None) /hpf Urine Bacteria Rare H (None) /hpf Urine Mucus Many H (None) /hpf Urine Yeast (Budding) Few H (None) /hpf 07/04/23 07/05/23 Range/Units 19:44 07:06 RBC (3.80-5.40) m/uL Hgb (11.4-16.0) gm/dL Hct (34.0-46.0) % MCHC (31.0-37.0) g/dL RDW (11.5-15.5) % Neutrophils # (1.3-7.7) k/uL Lymphocytes # (1.0-4.8) k/uL PT (10.0-12.5) sec INR (<1.2) APTT (22.0-30.0) sec Sodium 132 L (137-145) mmol/L Creatinine 0.24 L (0.52-1.04) mg/dL Calcium 8.0 L (8.4-10.2) mg/dL Alkaline Phosphatase 251 H (38-126) U/L C-Reactive Protein 18.6 H (<1.0) mg/dL Total Protein 4.4 L (6.3-8.2) g/dL Albumin 2.0 L (3.5-5.0) g/dL Urine Appearance (Clear) Urine Protein (Negative) Urine Ketones (Negative) Urine Blood (Negative) Ur Leukocyte Esterase (Negative) Urine RBC (0-5) /hpf Urine WBC (0-5) /hpf Calcium Oxalate Crystal (None) /hpf Urine Bacteria (None) /hpf Urine Mucus (None) /hpf Urine Yeast (Budding) (None) /hpf Assessment and Plan (1) Altered mental status Current Visit: Yes Status: Acute Code(s): R41.82 - ALTERED MENTAL STATUS, UNSPECIFIED SNOMED Code(s): 500011322 (2) Surgical site infection Current Visit: Yes Status: Acute Code(s): T81.49XA - INFECTION FOLLOWING A PROCEDURE, OTHER SURGICAL SITE, INIT SNOMED Code(s): 93497332 (3) UTI (urinary tract infection) Current Visit: Yes Status: Acute Code(s): N39.0 - URINARY TRACT INFECTION, SITE NOT SPECIFIED SNOMED Code(s): 03421012 Plan: 1patient presented to hospital with mental status changes which is likely multifactorial patient recently did have multiple surgeries to the thoracolumbar spine area and the patient noticed to have abnormal CT with a small fluid collection concerning for possible postop seroma versus abscess patient already fever white count is normal abscess less likely not excluded also have a positive UA concerning for possible component of symptomatic UTI 2-we will obtain blood culture and check inflammatory markers 3-continue the vancomycin however switch Zosyn to cefepime decrease risk of nephrotoxicity We will follow on clinical condition and cultures to further adjust medication if needed Thank you for this consultation we will follow the patient along with you Dictation was produced using [employer] dictation software. please excuse any grammatical, word or spelling errors. Time with Patient: Greater than 30
[2023-07-06 08:30] LABS: African American GFR (CKD) >90 (>60 ml/min/1.73 sqM); Anion Gap 5 mmol/L; Blood Urea Nitrogen 5 mg/dL (7-17); Calcium 7.9 mg/dL (8.4-10.2); Carbon Dioxide 22 mmol/L (22-30); Chloride 106 mmol/L (98-107); Glucose 77 mg/dL (74-99); Non-African American GFR(CKD) >90 (>60 ml/min/1.73 sqM); Potassium 3.9 mmol/L (3.5-5.1); Sodium 133 mmol/L (137-145)
[2023-07-06] MEDS: ACETAMINOPHEN TAB 500 MG TAB PO PRN (09:15)
[2023-07-06] MEDS: SODIUM CHLORIDE 0.9% 1,000 ML IV SCH ×2 (10:08→13:38)
[2023-07-06 10:16] LABS: Anisocytosis Slight; Basophils % (A) 1 %; Eosinophils # (A) 0.2 k/uL (0-0.7); Eosinophils % (A) 4 %; HCT 27.7 % (34.0-46.0); HGB 8.4 gm/dL (11.4-16.0); Hypochromasia Moderate; Lymphocytes # (A) 0.6 k/uL (1.0-4.8); Lymphocytes % (A) 10 %; MCH 29.1 pg (25.0-35.0); MCHC 30.4 g/dL (31.0-37.0); MCV 95.9 fL (80.0-100.0); Mean Platelet Volume 7.5; Monocytes # (A) 0.4 k/uL (0-1.0); Monocytes % (A) 8 %; Neutrophils # (A) 4.1 k/uL (1.3-7.7); Neutrophils % (A) 77 %; Platelet Count 453 k/uL (150-450); RBC 2.89 m/uL (3.80-5.40); RDW 16.1 % (11.5-15.5); WBC 5.3 k/uL (3.8-10.6)
--- NOTE | 2023-07-06 12:34 | EEG ---
ELECTROENCEPHALOGRAM REPORT PREAMBLE: This is a 68-year-old female with confusion. The patient had low back surgery in March 2023 and post surgery, the patient has worsening confusion. CURRENT MEDICATIONS: 1. Cefepime. 2. Lovenox. 3. Ativan. 4. Linzess. 5. Zofran. 6. Vancomycin. 7. Seroquel. EEG FINDINGS: This is a 21-channel digital EEG recorded with video component, utilizing 10/20 international system with referential and bipolar montages. Background consists of moderately well-developed and not very well regulated, mixed frequencies of 4 to 5 hertz theta, intermixed with some 1 to 2 hertz delta activity seen in bihemispheric region. Background does not seem to be reactive to eye opening or closing. Photic driving response was not seen. Different stages of sleep were not seen. No focal or generalized epileptiform activity was seen. IMPRESSION: This is an abnormal EEG due to background slowing of moderate degree. This is suggestive of generalized cerebral dysfunction as can be seen with toxic metabolic encephalopathy or related to diffuse structural brain abnormality. Clinical correlation is recommended. No epileptiform activity was seen. MMODL / IJN: [id number] /
--- NOTE | 2023-07-06 13:22 | P.PN ---
Subjective Progress Note Date: 07/06/23 Principal diagnosis: Post-op abscess Patient seen and examined this morning. Patient is resting comfortably in bed. EEG had just been completed, staff at bedside to assist patient with breakfast. Patient remains pleasantly confused. Prevent a wound VAC is intact to thoracic incision. No drainage noted within tubing. MRI of the brain with and without contrast is pending. Patient is unable to follow commands at this time. Objective - Vital Signs Vital signs: Vital Signs Temp 96.9 F L 07/06/23 08:00 Pulse 98 07/06/23 08:00 Resp 16 07/06/23 08:00 BP 160/86 07/06/23 08:00 Pulse Ox 94 L 07/06/23 08:00 FiO2 Intake & Output 07/05/23 07/06/23 07/06/23 18:59 06:59 18:59 Intake Total 555 Output Total 1450 Balance 555 -1450 Intake: Intake, IV Titration 375 Amount Cefepime 2 gm In Sodium 25 Chloride 0.9% 100 ml @ 25 mls/hr IVPB Q8HR [facility] Rx# :[id number] Piperacillin-Tazobactam 3 100 .375 gm In Sodium Chloride 0.9% 100 ml @ 25 mls/hr IVPB Q8HR [facility] Rx# :[id number] Vancomycin 1,000 mg In 250 Sodium Chloride 0.9% 250 ml @ 125 mls/hr IVPB Q8H [facility] Rx#:[id number] Oral 180 Output: Urine 1450 Other: Voiding Method Indwelling Catheter Indwelling Catheter - Exam Inspection: Negative for any open fractures. Surgical incision to the thoracic spine, Prevena wound vac intact. Patient is moving BUE and BLE freely without any difficulty. Physical exam is limited due to AMS. Neurovascular: Radial pulse intact, 2+ bilaterally. Cap refill under 3 seconds in digits upper extremities. - Labs CBC & Chem 7: 07/06/23 09:47 07/06/23 07:06 Labs: Abnormal Lab Results - Last 24 Hours (Table) 07/05/23 07/06/23 Range/Units 07:06 07:06 Sodium 133 L (137-145) mmol/L BUN 5 L (7-17) mg/dL Creatinine 0.23 L (0.52-1.04) mg/dL Calcium 7.9 L (8.4-10.2) mg/dL C-Reactive Protein 18.6 H (<1.0) mg/dL Microbiology - Last 24 Hours (Table) 07/04/23 19:30 Blood Culture - Preliminary Blood 07/04/23 19:15 Blood Culture - Preliminary Blood Assessment and Plan Assessment: Previous Revision T6T10 posterior stabilization with ORIF at T9 Previous [id number] decompression and fusion Delayed wound healing Multiple complex comorbidities Plan: Prevena wound VAC to the thoracic incision. Reposition patient every 2 hours to keep pressure off of her back, position with pillows. Continue with IV ant ibiotics. 2. Appreciate medical management 3. Pain management - Tylenol and Flexeril 4. GI prophylaxis - per medicine 5. DVT prophylaxis - Lovenox 6. PT/OT - weightbearing as tolerated with a walker as needed. 7. Appreciate consult I reviewed and discussed this case with my attending Dr. Flores, whom has reviewed this chart and films and is in agreement with assessment and plan of care as outlined above. I have personally seen and examined the patient, performed the documentation and the assessment and plan as written. Number of minutes spent on the visit: 30m.
[2023-07-06] MEDS: HYDROmorphone 0.5 MG/0.5 ML SYRINGE IVP STA (13:40)
--- NOTE | 2023-07-06 17:17 | P.PN ---
Subjective Progress Note Date: 07/06/23 Principal diagnosis: Reason for follow-up is UTI and abnormal CT thoracolumbar spine Patient is a 68-year-old female past medical history anxiety bipolar depression, patient recently did have extensive T10 to pelvis decompression and fusion by Dr. Sheehan 7 in March 2023 subsequently patient did have a T9 burst fracture status post T6-10 posterior stabilization with ORIF on May 15, 2023 patient did have a recent admission to the hospital concerning for possible cellulitis infection to the thoracic spine area patient is status post I&D and cultures was negative, the patient has not been brought back to the hospital concerning for mental status changes did have a abnormal CT suggestive of fluid collection possible abscess. On today's evaluation that is 07/06/2023 patient is afebrile patient is slightly more awake compared to yesterday however remains to be pleasantly confused and cannot provide reliable history no changes reported by the nurse aide at the bedside. Patient did have white count of 5.3 creatinine 0.23 CRP is 18.6 urine is growing Enterococcus UA was positive Objective - Vital Signs Vital signs: Vital Signs Temp 97.4 F L 07/06/23 12:00 Pulse 99 07/06/23 12:00 Resp 16 07/06/23 12:00 BP 165/92 07/06/23 12:00 Pulse Ox 94 L 07/06/23 12:00 FiO2 Intake & Output 07/05/23 07/06/23 07/06/23 18:59 06:59 18:59 Intake Total 555 Output Total 1450 500 Balance 555 -1450 -500 Intake: Intake, IV Titration 375 Amount Cefepime 2 gm In Sodium 25 Chloride 0.9% 100 ml @ 25 mls/hr IVPB Q8HR [facility] Rx# :[id number] Piperacillin-Tazobactam 3 100 .375 gm In Sodium Chloride 0.9% 100 ml @ 25 mls/hr IVPB Q8HR [facility] Rx# :[id number] Vancomycin 1,000 mg In 250 Sodium Chloride 0.9% 250 ml @ 125 mls/hr IVPB Q8H [facility] Rx#:[id number] Oral 180 Output: Urine 1450 500 Other: Voiding Method Indwelling Catheter Indwelling Catheter Indwelling Catheter # Bowel Movements 1 - Exam GENERAL DESCRIPTION: An elderly female lying in bed in no distress RESPIRATORY SYSTEM: Unlabored breathing , decreased breath sounds at bases HEART: S1 S2 regular rate and rhythm , ABDOMEN: Soft , no tenderness EXTREMITIES: No edema feet - Labs CBC & Chem 7: 07/06/23 09:47 07/06/23 07:06 Labs: Abnormal Lab Results - Last 24 Hours (Table) 07/06/23 07/06/23 Range/Units 07:06 09:47 RBC 2.89 L (3.80-5.40) m/uL Hgb 8.4 L (11.4-16.0) gm/dL Hct 27.7 L (34.0-46.0) % MCHC 30.4 L (31.0-37.0) g/dL RDW 16.1 H (11.5-15.5) % Plt Count 453 H (150-450) k/uL Lymphocytes # 0.6 L (1.0-4.8) k/uL Sodium 133 L (137-145) mmol/L BUN 5 L (7-17) mg/dL Creatinine 0.23 L (0.52-1.04) mg/dL Calcium 7.9 L (8.4-10.2) mg/dL Microbiology - Last 24 Hours (Table) 07/04/23 19:44 Urine Culture - Preliminary Urine,Voided Group D Enterococcus 07/04/23 19:30 Blood Culture - Preliminary Blood 07/04/23 19:15 Blood Culture - Preliminary Blood Assessment and Plan (1) Surgical site infection Current Visit: Yes Status: Acute Code(s): T81.49XA - INFECTION FOLLOWING A PROCEDURE, OTHER SURGICAL SITE, INIT SNOMED Code(s): 96010802 (2) UTI (urinary tract infection) Current Visit: Yes Status: Acute Code(s): N39.0 - URINARY TRACT INFECTION, SITE NOT SPECIFIED SNOMED Code(s): 01774395 Plan: 1patient presented to hospital with mental status changes which is likely multifactorial patient recently did have multiple surgeries to the thoracolumbar spine area and the patient noticed to have abnormal CT with a small fluid collection concerning for possible postop seroma versus abscess patient already fever white count is normal abscess less likely not excluded also have a positive UA concerning for possible component of symptomatic UTI 2-patient did have elevated CRP sed rate is pending, urine is growing Enterococcus 3-patient to continue the vancomycin and cefepime while waiting for the workup to be completed Dictation was produced using [employer] dictation software. please excuse any grammatical, word or spelling errors. Time with Patient: Less than 30
[2023-07-07] MEDS: VANCOMYCIN TROUGH DUE 1 EACH MISC MISCELLANE ONE (08:25)
[2023-07-07 08:30] LABS: African American GFR (CKD) >90 (>60 ml/min/1.73 sqM); Anion Gap 6 mmol/L; Blood Urea Nitrogen 4 mg/dL (7-17); Calcium 7.9 mg/dL (8.4-10.2); Carbon Dioxide 21 mmol/L (22-30); Chloride 108 mmol/L (98-107); Glucose 76 mg/dL (74-99); Non-African American GFR(CKD) >90 (>60 ml/min/1.73 sqM); Potassium 3.5 mmol/L (3.5-5.1); Sodium 135 mmol/L (137-145)
[2023-07-07 08:31] LABS: Anisocytosis Slight; Basophils % (A) 1 %; Eosinophils # (A) 0.2 k/uL (0-0.7); Eosinophils % (A) 3 %; HCT 27.8 % (34.0-46.0); HGB 8.6 gm/dL (11.4-16.0); Hypochromasia Marked; Lymphocytes # (A) 0.7 k/uL (1.0-4.8); Lymphocytes % (A) 15 %; MCHC 31.1 g/dL (31.0-37.0); MCV 96.5 fL (80.0-100.0); Mean Platelet Volume 8.5; Monocytes # (A) 0.5 k/uL (0-1.0); Monocytes % (A) 10 %; Neutrophils # (A) 3.3 k/uL (1.3-7.7); Neutrophils % (A) 70 %; Platelet Count 434 k/uL (150-450); RBC 2.88 m/uL (3.80-5.40); RDW 16.3 % (11.5-15.5); WBC 4.7 k/uL (3.8-10.6)
--- NOTE | 2023-07-07 09:56 | P.PN ---
Subjective Progress Note Date: 07/07/23 Principal diagnosis: Postop abscess Patient seen at bedside this morning lying semirecumbent position and nursing was present during encounter. Prerenal when dressing is present over spine. Patient is lethargic and confused throughout the encounter. History is difficult to obtain due to patient's mental state. Prerenal wound VAC dressing was placed on Thursday. Objective - Vital Signs Vital signs: Vital Signs Temp 98.8 F 07/07/23 08:15 Pulse 87 07/07/23 08:15 Resp 18 07/07/23 08:15 BP 119/72 07/07/23 08:15 Pulse Ox 96 07/07/23 08:15 FiO2 Intake & Output 07/06/23 07/07/23 07/07/23 18:59 06:59 18:59 Intake Total 118 118 Output Total 1425 2100 Balance -1307 -2100 118 Intake: Oral 118 118 Output: Urine 1425 2100 Other: Voiding Method Indwelling Catheter Indwelling Catheter # Bowel Movements 1 - Exam Prevena wound VAC dressing is present over the spine at this time. Negative for any active drainage. Dressing appears to be holding well at this time. Negative for any drainage. Negative for any ecchymosis or erythema. Sensation is equal, symmetric, bilaterally intact of the upper and lower extremities. Patient does have good range of motion throughout bilateral upper and lower extremities on exam. There is some generalized tenderness to patient's surrounding incision on spine. Nontender to palpation throughout rest exam. Motor exam grossly intact. Neurovascular status intact. Radial pulse intact, 2+ bilaterally. Cap refill under 3 seconds in digits of the upper extremities. Negative Homans bilaterally. Negative Chucky bilaterally. Negative clonus bilaterally. - Labs CBC & Chem 7: 07/07/23 06:31 07/07/23 06:31 Labs: Abnormal Lab Results - Last 24 Hours (Table) 07/06/23 07/07/23 07/07/23 Range/Units 09:47 06:31 06:31 RBC 2.89 L 2.88 L (3.80-5.40) m/uL Hgb 8.4 L 8.6 L (11.4-16.0) gm/dL Hct 27.7 L 27.8 L (34.0-46.0) % MCHC 30.4 L (31.0-37.0) g/dL RDW 16.1 H 16.3 H (11.5-15.5) % Plt Count 453 H (150-450) k/uL Lymphocytes # 0.6 L 0.7 L (1.0-4.8) k/uL Sodium 135 L (137-145) mmol/L Chloride 108 H (98-107) mmol/L Carbon Dioxide 21 L (22-30) mmol/L BUN 4 L (7-17) mg/dL Creatinine 0.27 L (0.52-1.04) mg/dL Calcium 7.9 L (8.4-10.2) mg/dL Microbiology - Last 24 Hours (Table) 07/04/23 19:30 Blood Culture - Preliminary Blood 07/04/23 19:15 Blood Culture - Preliminary Blood 07/04/23 19:44 Urine Culture - Preliminary Urine,Voided Group D Enterococcus Assessment and Plan Assessment: Previous Revision T6T10 posterior stabilization with ORIF at T9 Previous [id number] decompression and fusion Delayed wound healing Multiple complex comorbidities Plan: 1. Previous Revision T6T10 posterior stabilization with ORIF at T9; Previous [id number] decompression and fusion; Delayed wound healing; Multiple complex comorbidities - peroneal wound VAC dressing is in place over spine. Appears to be dry and intact. Holding well. Maintain wound VAC dressing at this time. Pain medication as needed. Plain to turn every 2 hours take pressure off spine. Work with therapy daily. Weightbearing as tolerated with walker and assistance. We'll continue to be available as needed to see patient during stay in hospital. 2. Appreciate medical management 3. Pain management - Tylenol 4. GI prophylaxis rec 5. DVT prophylaxis - Lovenox 6. PT/OT - weightbearing as tolerable walker and assistance 7. Encourage incentive spirometer use Time with Patient: Less than 30
--- NOTE | 2023-07-07 10:59 | P.PN ---
Subjective Progress Note Date: 07/06/23 Patient was seen for a follow-up. Patient initially seen by Dr. Julio Duffy. Please refer to his note for details. Patient has history of 3 surgeries since March 2023. Patient is still confused, calling for her dad, who is . Patient's daughter was present. She states that patient does have slight memory loss for some time but no major issues. She is concerned about dementia. Patient is very confused, delirious, sitter is present. Some of the workup during his hospital visit consisted of: ESR is 13 CT of the head is reported as no acute intracranial process. Nonspecific white matter changes and the mild cerebral atrophy. CT cervical spine is reported as some buckling of the T2 vertebral body with possible superior endplate deformity suspicious for fracture. Moderate to severe degeneration changes CT of thoracic lumbar is reported as small organization fluid collection in the upper back favored represent small abscess consider ultrasound imaging. Multilevel fixation changes of the spine with hardware in place. Hardware appears intact. Patient has a wound VAC that has been applied to the thoracic incision. Urinalysis it's cloudy, leukocyte esterase was large, urine white blood cell 125, urine bacteria is rare. Of note patient had vitamin B12 was end of May 2023 and it's 1024, red blood cell folate also around the same time is 840 TSH in June 2023 is 0.755 Objective - Vital Signs Vital signs: Vital Signs Temp 97.4 F L 07/06/23 12:00 Pulse 99 07/06/23 14:00 Resp 16 07/06/23 14:00 BP 165/92 07/06/23 12:00 Pulse Ox 94 L 07/06/23 12:00 FiO2 Intake & Output 07/06/23 07/06/23 07/07/23 06:59 18:59 06:59 Intake Total 118 Output Total 1450 1425 Balance -1450 -1307 Intake: Oral 118 Output: Urine 1450 1425 Other: Voiding Method Indwelling Catheter Indwelling Catheter # Bowel Movements 1 - Exam Patient is delirious, restless, dry mouth, laying in the bed, appears obviously confused. Patient not able to tell what city state she is in, or month or year. She is oriented x 1. Patient is moving all 4 extremities. Patient did not cooperate with full testing. - Labs CBC & Chem 7: 07/07/23 06:31 07/07/23 06:31 Labs: Abnormal Lab Results - Last 24 Hours (Table) 07/06/23 07/06/23 Range/Units 07:06 09:47 RBC 2.89 L (3.80-5.40) m/uL Hgb 8.4 L (11.4-16.0) gm/dL Hct 27.7 L (34.0-46.0) % MCHC 30.4 L (31.0-37.0) g/dL RDW 16.1 H (11.5-15.5) % Plt Count 453 H (150-450) k/uL Lymphocytes # 0.6 L (1.0-4.8) k/uL Sodium 133 L (137-145) mmol/L BUN 5 L (7-17) mg/dL Creatinine 0.23 L (0.52-1.04) mg/dL Calcium 7.9 L (8.4-10.2) mg/dL Microbiology - Last 24 Hours (Table) 07/04/23 19:44 Urine Culture - Preliminary Urine,Voided Group D Enterococcus 07/04/23 19:30 Blood Culture - Preliminary Blood 07/04/23 19:15 Blood Culture - Preliminary Blood Assessment and Plan Assessment: This is a 68-year-old woman with history of back pain with surgery March 2023 and since the back surgery she's been having confusion that's worsening with the speech difficulty. She is a been in and out of the hospital because of her confusion. She had multiple urinary tract infection. She had a fall in April 2023 and had burst fracture at T9 which she had the surgery afterwards as a result. Patient confusion with aphasia seems more delirium from UTI as well as abscess. Acute UTI Surgical site infection, patient has wound VAC Chronic lower back pain with unsteady gait status post [id number] decompression and fusion in March 2023 that the patient had a fall in 04/2023 and had fracture T9 then had surgery on 05/15/2023 History of recurrent UTIs. ID on board. History of pulmonary embolism on Xarelto We will continue to follow clinically. Plan: Patient has acute delirium. Cannot evaluate for cognitive functions while patient is delirious. Patient's daughter was recommended that once her delirium has resolved, and all medical conditions under control, and then if she still has memory disturbance, should follow-up with neurologist outpatient for further evaluation of cognitive functions. Await MRI of the brain to rule out any acute or subacute stroke, not seen on the CT. patient not cooperating for MRI at this time. EEG was abnormal due to background slowing of moderate degree, suggestive of encephalopathy. No epileptiform activity was seen. Patient had a recent TSH, vitamin B-12 and folate therefore no need to repeat. Patient is on Seroquel 400 mg daily at bedtime and 50 mg daily. If possible avoid opiates and benzos Orthopedic is on board Patient's urine cultures have grown group D Enterococcus. I'll defer the rest of the medical management to primary and other specialists
--- NOTE | 2023-07-07 14:43 | P.PN ---
Subjective Progress Note Date: 07/07/23 Principal diagnosis: Reason for follow-up is UTI and abnormal CT thoracolumbar spine Patient is a 68-year-old female past medical history anxiety bipolar depression, patient recently did have extensive T10 to pelvis decompression and fusion by Dr. Sheehan 7 in March 2023 subsequently patient did have a T9 burst fracture status post T6-10 posterior stabilization with ORIF on May 15, 2023 patient did have a recent admission to the hospital concerning for possible cellulitis infection to the thoracic spine area patient is status post I&D and cultures was negative, the patient has not been brought back to the hospital concerning for mental status changes did have a abnormal CT suggestive of fluid collection possible abscess. On today's evaluation that is 07/07/2023, patient has been afebrile, patient is breathing comfortably and is currently on room air, patient currently sleepy lethargic and could not provide any history no changes reported by the sitter at the bedside. Patient white count is 4.7, creatinine 0.27 urine did grew VRE and yeast patient is blood culture negative Objective - Vital Signs Vital signs: Vital Signs Temp 98.8 F 07/07/23 08:15 Pulse 89 07/07/23 14:26 Resp 18 07/07/23 14:26 BP 151/81 07/07/23 11:10 Pulse Ox 95 07/07/23 11:10 FiO2 Intake & Output 07/06/23 07/07/23 07/07/23 18:59 06:59 18:59 Intake Total 118 118 Output Total 1425 2100 500 Balance -0387 -5032 -282 Intake: Oral 118 118 Output: Urine 1425 2100 500 Other: Voiding Method Indwelling Catheter Indwelling Catheter Indwelling Catheter # Bowel Movements 1 - Exam GENERAL DESCRIPTION: An elderly female lying in bed in no distress RESPIRATORY SYSTEM: Unlabored breathing , decreased breath sounds at bases HEART: S1 S2 regular rate and rhythm , ABDOMEN: Soft , no tenderness EXTREMITIES: No edema feet - Labs CBC & Chem 7: 07/07/23 06:31 07/07/23 06:31 Labs: Abnormal Lab Results - Last 24 Hours (Table) 07/07/23 07/07/23 Range/Units 06:31 06:31 RBC 2.88 L (3.80-5.40) m/uL Hgb 8.6 L (11.4-16.0) gm/dL Hct 27.8 L (34.0-46.0) % RDW 16.3 H (11.5-15.5) % Lymphocytes # 0.7 L (1.0-4.8) k/uL Sodium 135 L (137-145) mmol/L Chloride 108 H (98-107) mmol/L Carbon Dioxide 21 L (22-30) mmol/L BUN 4 L (7-17) mg/dL Creatinine 0.27 L (0.52-1.04) mg/dL Calcium 7.9 L (8.4-10.2) mg/dL Microbiology - Last 24 Hours (Table) 07/04/23 19:44 Urine Culture - Preliminary Urine,Voided Enterococcus faecium VRE Yeast species 07/04/23 19:30 Blood Culture - Preliminary Blood 07/04/23 19:15 Blood Culture - Preliminary Blood Assessment and Plan (1) Surgical site infection Current Visit: Yes Status: Acute Code(s): T81.49XA - INFECTION FOLLOWING A PROCEDURE, OTHER SURGICAL SITE, INIT SNOMED Code(s): 08228775 (2) UTI (urinary tract infection) Current Visit: Yes Status: Acute Code(s): N39.0 - URINARY TRACT INFECTION, SITE NOT SPECIFIED SNOMED Code(s): 18976055 Plan: 1patient presented to hospital with mental status changes which is likely multifactorial patient recently did have multiple surgeries to the thoracolumbar spine area and the patient noticed to have abnormal CT with a small fluid collection concerning for possible postop seroma versus abscess patient already fever white count is normal abscess less likely not excluded also have a positive UA concerning for possible component of symptomatic UTI 2-patient did have elevated CRP sed rate is pending, urine is growing VRE and yeast 3-we will discontinue vancomycin and cefepime, start the patient on daptomycin, as Diflucan could not be started the patient is on Seroquel because of QT prolongation we will add Eraxis and see clinical response Dictation was produced using [employer] dictation software. please excuse any grammatical, word or spelling errors. Time with Patient: Less than 30
[2023-07-07] MEDS: POTASSIUM CHLORIDE ER 20 MEQ TAB.ER PO STA (14:58)
[2023-07-07] MEDS: ANIDULAFUNGIN 200 MG in SODIUM CHLORIDE 0.9% 200 ML IVPB ONE (15:58)
[2023-07-07] MEDS ORDERED: VANCOMYCIN 1,000 MG in SODIUM CHLORIDE 0.9% 250 ML IVPB SCH (16:00)
[2023-07-07] MEDS: THIAMINE 100 MG TAB PO SCH (16:49)
[2023-07-07] MEDS: DAPTOmycin 200 MG in SODIUM CHLORIDE 0.9% 50 ML IVPB SCH (18:47)
[2023-07-08 08:17] LABS: African American GFR (CKD) >90 (>60 ml/min/1.73 sqM); Anion Gap 4 mmol/L; Blood Urea Nitrogen 3 mg/dL (7-17); Calcium 7.8 mg/dL (8.4-10.2); Carbon Dioxide 22 mmol/L (22-30); Chloride 109 mmol/L (98-107); Glucose 77 mg/dL (74-99); Non-African American GFR(CKD) >90 (>60 ml/min/1.73 sqM); Potassium 3.4 mmol/L (3.5-5.1); Sodium 135 mmol/L (137-145)
[2023-07-08 08:47] LABS: Anisocytosis Slight; Basophils % (A) 1 %; Eosinophils # (A) 0.2 k/uL (0-0.7); Eosinophils % (A) 3 %; HCT 25.4 % (34.0-46.0); HGB 7.6 gm/dL (11.4-16.0); Hypochromasia Marked; Lymphocytes # (A) 0.5 k/uL (1.0-4.8); Lymphocytes % (A) 9 %; MCH 29.3 pg (25.0-35.0); MCHC 30.1 g/dL (31.0-37.0); MCV 97.4 fL (80.0-100.0); Macrocytosis Slight; Mean Platelet Volume 8.9; Monocytes # (A) 0.5 k/uL (0-1.0); Monocytes % (A) 9 %; Neutrophils # (A) 4.4 k/uL (1.3-7.7); Neutrophils % (A) 77 %; Platelet Count 373 k/uL (150-450); RBC 2.61 m/uL (3.80-5.40); RDW 16.5 % (11.5-15.5); WBC 5.7 k/uL (3.8-10.6)
--- NOTE | 2023-07-08 09:30 | P.PN ---
Subjective Progress Note Date: 07/07/23 07/07/2023: Patient was seen for a follow-up. Patient is laying in the bed, appears slightly less delirious. Per nurse, patient continues to be very aphasic. She speaks with word salad. She is trying to save, but cannot and sometimes it is random stuff. Patient is undergoing MRI of the brain today. Patient denies any history of alcohol use. Family has mentioned that in March 2023, patient was noted not to able to move her left arm and leg. 07/06/2023: Patient was seen for a follow-up. Patient initially seen by Dr. Julio Duffy. Please refer to his note for details. Patient has history of 3 surgeries since March 2023. Patient is still confused, calling for her dad, who is . Patient's daughter was present. She states that patient does have slight memory loss for some time but no major issues. She is concerned about dementia. Patient is very confused, delirious, sitter is present. Some of the workup during his hospital visit consisted of: ESR is 13 CT of the head is reported as no acute intracranial process. Nonspecific white matter changes and the mild cerebral atrophy. CT cervical spine is reported as some buckling of the T2 vertebral body with possible superior endplate deformity suspicious for fracture. Moderate to severe degeneration changes CT of thoracic lumbar is reported as small organization fluid collection in the upper back favored represent small abscess consider ultrasound imaging. Multil evel fixation changes of the spine with hardware in place. Hardware appears intact. Patient has a wound VAC that has been applied to the thoracic incision. Urinalysis it's cloudy, leukocyte esterase was large, urine white blood cell 125, urine bacteria is rare. Of note patient had vitamin B12 was end of May 2023 and it's 1024, red blood cell folate also around the same time is 840 TSH in June 2023 is 0.755 Objective - Vital Signs Vital signs: Vital Signs Temp 98.8 F 07/07/23 08:15 Pulse 89 07/07/23 14:26 Resp 18 07/07/23 14:26 BP 151/81 07/07/23 11:10 Pulse Ox 95 07/07/23 11:10 FiO2 Intake & Output 07/06/23 07/07/23 07/07/23 18:59 06:59 18:59 Intake Total 118 118 Output Total 1425 2100 500 Balance -1307 -0764 -335 Intake: Oral 118 118 Output: Urine 1425 2100 500 Other: Voiding Method Indwelling Catheter Indwelling Catheter Indwelling Catheter # Bowel Movements 1 - Exam Patient is delirious, confused, but appears better than yesterday. Patient is laying in the bed. Appears comfortable. Patient sometimes says clear sentences like "can you do me a favor". Patient was able to name objects presented like pen, glasses and repeats very well. No dysarthria. Patient not able to tell what city state she is in. She was able to tell the month of June, but not the year. She is oriented x 1. Patient strength appears fairly equal. Senior Product Development Scientist is equal. Biceps are normal, triceps appears slightly weak on the left. She moves her legs. Patient did not cooperate with the lower extremity testing. - Labs CBC & Chem 7: 07/08/23 06:14 07/08/23 06:14 Labs: Abnormal Lab Results - Last 24 Hours (Table) 07/07/23 07/07/23 Range/Units 06:31 06:31 RBC 2.88 L (3.80-5.40) m/uL Hgb 8.6 L (11.4-16.0) gm/dL Hct 27.8 L (34.0-46.0) % RDW 16.3 H (11.5-15.5) % Lymphocytes # 0.7 L (1.0-4.8) k/uL Sodium 135 L (137-145) mmol/L Chloride 108 H (98-107) mmol/L Carbon Dioxide 21 L (22-30) mmol/L BUN 4 L (7-17) mg/dL Creatinine 0.27 L (0.52-1.04) mg/dL Calcium 7.9 L (8.4-10.2) mg/dL Microbiology - Last 24 Hours (Table) 07/04/23 19:44 Urine Culture - Preliminary Urine,Voided Enterococcus faecium VRE Yeast species 07/04/23 19:30 Blood Culture - Preliminary Blood 07/04/23 19:15 Blood Culture - Preliminary Blood Assessment and Plan Assessment: This is a 68-year-old woman with history of back pain with surgery March 2023 and since the back surgery she's been having confusion that's worsening with the speech difficulty. She is a been in and out of the hospital because of her confusion. She had multiple urinary tract infection. She had a fall in April 2023 and had burst fracture at T9 which she had the surgery afterwards as a result. Patient confusion with aphasia seems more delirium from UTI as well as abscess. Acute UTI with Enterococcus faecium VRE, and yeast species. Surgical site infection, patient has wound VAC Chronic lower back pain with unsteady gait status post [id number] decompression and fusion in March 2023 that the patient had a fall in 04/2023 and had fracture T9 then had surgery on 05/15/2023 History of recurrent UTIs. ID on board. History of pulmonary embolism on Xarelto We will continue to follow clinically. Plan: Patient has acute delirium. Cannot evaluate for cognitive functions while patient is delirious. Patient's daughter was recommended that once her delirium has resolved, and all medical conditions under control, and then if she still has memory disturbance, should follow-up with neurologist outpatient for further evaluation of cognitive functions. Patient currently on Seroquel 50 mg in the morning, and 400 mg at bedtime. We will empirically start thiamine 100 mg daily. No history of alcoholism. Await MRI of the brain to rule out any acute or subacute stroke, not seen on the CT. EEG was abnormal due to background slowing of moderate degree, suggestive of encephalopathy. No epileptiform activity was seen. Patient had a recent TSH, vitamin B-12 and folate therefore no need to repeat. Patient is on Seroquel 400 mg daily at bedtime and 50 mg daily. If possible avoid opiates and benzos Orthopedic is on board Patient's urine cultures have grown Enterococcus faecium VRE, and yeast species. Patient currently on Eraxis, daptomycin. ID following. I'll defer the rest of the medical management to primary and other specialists
--- NOTE | 2023-07-08 11:24 | P.PN ---
Subjective Progress Note Date: 07/06/23 * 68-year-old patient with past medical history significant for degenerative disease of spine recent spine surgery, history of pulm embolism, bipolar disorder, hypertension, presents to the emergency department from [facility] with complaints of altered mental status and a fall. Patient had an unwitnessed fall at the facility. Patient has been on Xarelto and had a CT head done which was negative for acute intracranial process. CT cervical spine does show degenerative changes Some bulking of T2 vertebral body noted concern for superior endplate deformity. CT thoracic spine was reviewed which showed small localizing fluid collection in the upper back concern for abscess. Multilevel degenerative changes were noted. * Blood work obtained in ER showed CBC with WBC count of 10.5, hemoglobin 8.1 platelet count of 431, INR of 1.8. Serum chemistry 132 potassium 4.4, dioxide 26 BUN 8 creatinine 0.24 calcium of 8 * Urinalysis obtained did show large amount of leukocyte esterase WBC bacteria noted * Patient tested negative for influenza COVID and RSV * ER patient continued to have altered mentation for which patient was given a dose of Narcan with some improvement * Patient admitted to medical floor with consultation from orthospine as well as infectious disease 07/06/23 Patient is in the telemetry unit. Awake alert but seems to be agitated and trying to get out of bed. No complaints of chest pain or shortness of breath. Patient does have underlying memory issues. Afebrile. No cough or sputum production. Continued on Prevena wound VAC to the thoracic incision Urine culture showed Enterococcus species final culture report pending. Patient is on vancomycin. ID is on board. Laboratory data showed WBC 5.3 hemoglobin 8.4 and platelets 453 Sodium 133 potassium 3.9 chloride 106 bicarb is 22 BUN 5 and creatinine 0.23 and calcium 7.9. CRP was 18.6. ID and orthopedic surgery is on board. Current medications reviewed. REVIEW OF SYSTEMS: Limited secondary to altered mentation PHYSICAL EXAMINATION: GENERAL: The patient is alert and oriented x 0 , HEENT: Pupils are round and equally reacting to light. EOMI. CARDIOVASCULAR: S1 and S2 present. No murmurs, rubs, or gallops. PULMONARY: Chest is clear to auscultation, no wheezing or crackles. ABDOMEN: Soft, nontender, nondistended, normoactive bowel sounds. No palpable organomegaly. MUSCULOSKELETAL: No joint swelling or deformity. EXTREMITIES: No cyanosis, clubbing, or pedal edema. NEUROLOGICAL: Disoriented SKIN: Surgical wound wound VAC in place Assessment and plan * Acute toxic metabolic encephalopathy * Polypharmacy * S/p fall suspect compression fracture of thoracic spine * Postoperative fluid collection rule out abscess * Enterococcus urinary tract infection * History of bipolar disorder * Chronic pulmonary embolism * Hypothyroid * Essential hypertension * In regards to acute metabolic encephalopathy, CT head negative for acute intracranial process, patient on multiple medications contributing to encephalopathy including narcotics, benzodiazepines Seroquel. Continue treatment for urinary tract infection and monitor for improvement patient was recently hospitalized and discharged on 06/26/2023 during that hospitalization patient had delirium as well * In regards to fall patient will need physical therapy Occupational Therapy evaluation maintain fall precautions * In regards to postoperative fluid collection, infectious disease and orthospine consulted to evaluate seroma versus abscess. Continue with Prevena wound VAC to the thoracic incision * In regards to urinary tract infection follow-up on blood cultures and urine cultures. * Regards to history of bipolar disorder continue patient on Lamictal and Seroquel * In regards to pulmonary embolism continue patient on Lovenox therapeutic dosing, Xarelto on hold in anticipation of surgical intervention * In regards to hypertension continue Coreg. CODE STATUS is full code Objective - Vital Signs Vital signs: Vital Signs Temp 96.9 F L 07/06/23 08:00 Pulse 98 07/06/23 08:00 Resp 16 07/06/23 08:00 BP 160/86 07/06/23 08:00 Pulse Ox 94 L 07/06/23 08:00 FiO2 Intake & Output 07/05/23 07/06/23 07/06/23 18:59 06:59 18:59 Intake Total 555 Output Total 1450 500 Balance 555 -1450 -500 Intake: Intake, IV Titration 375 Amount Cefepime 2 gm In Sodium 25 Chloride 0.9% 100 ml @ 25 mls/hr IVPB Q8HR BRYN Rx# :[id number] Piperacillin-Tazobactam 3 100 .375 gm In Sodium Chloride 0.9% 100 ml @ 25 mls/hr IVPB Q8HR [facility]YN Rx# :[id number] Vancomycin 1,000 mg In 250 Sodium Chloride 0.9% 250 ml @ 125 mls/hr IVPB Q8H BRYN Rx#:[id number] Oral 180 Output: Urine 1450 500 Other: Voiding Method Indwelling Catheter Indwelling Catheter Indwelling Catheter - Labs CBC & Chem 7: 07/08/23 06:14 07/08/23 06:14 Labs: Abnormal Lab Results - Last 24 Hours (Table) 07/06/23 07/06/23 Range/Units 07:06 09:47 RBC 2.89 L (3.80-5.40) m/uL Hgb 8.4 L (11.4-16.0) gm/dL Hct 27.7 L (34.0-46.0) % MCHC 30.4 L (31.0-37.0) g/dL RDW 16.1 H (11.5-15.5) % Plt Count 453 H (150-450) k/uL Lymphocytes # 0.6 L (1.0-4.8) k/uL Sodium 133 L (137-145) mmol/L BUN 5 L (7-17) mg/dL Creatinine 0.23 L (0.52-1.04) mg/dL Calcium 7.9 L (8.4-10.2) mg/dL Microbiology - Last 24 Hours (Table) 07/04/23 19:30 Blood Culture - Preliminary Blood 07/04/23 19:15 Blood Culture - Preliminary Blood
[2023-07-08] MEDS: LORazepam 2 MG/ML INJ IV STA (11:49)
--- NOTE | 2023-07-08 11:57 | P.PN ---
Subjective Progress Note Date: 07/07/23 * 68-year-old patient with past medical history significant for degenerative disease of spine recent spine surgery, history of pulm embolism, bipolar disorder, hypertension, presents to the emergency department from [facility] with complaints of altered mental status and a fall. Patient had an unwitnessed fall at the facility. Patient has been on Xarelto and had a CT head done which was negative for acute intracranial process. CT cervical spine does show degenerative changes Some bulking of T2 vertebral body noted concern for superior endplate deformity. CT thoracic spine was reviewed which showed small localizing fluid collection in the upper back concern for abscess. Multilevel degenerative changes were noted. * Blood work obtained in ER showed CBC with WBC count of 10.5, hemoglobin 8.1 platelet count of 431, INR of 1.8. Serum chemistry 132 potassium 4.4, dioxide 26 BUN 8 creatinine 0.24 calcium of 8 * Urinalysis obtained did show large amount of leukocyte esterase WBC bacteria noted * Patient tested negative for influenza COVID and RSV * ER patient continued to have altered mentation for which patient was given a dose of Narcan with some improvement * Patient admitted to medical floor with consultation from orthospine as well as infectious disease 07/06/23 Patient is in the telemetry unit. Awake alert but seems to be agitated and trying to get out of bed. No complaints of chest pain or shortness of breath. Patient does have underlying memory issues. Afebrile. No cough or sputum production. Continued on Prevena wound VAC to the thoracic incision Urine culture showed Enterococcus species final culture report pending. Patient is on vancomycin. ID is on board. Laboratory data showed WBC 5.3 hemoglobin 8.4 and platelets 453 Sodium 133 potassium 3.9 chloride 106 bicarb is 22 BUN 5 and creatinine 0.23 and calcium 7.9. CRP was 18.6. ID and orthopedic surgery is on board. 07/07/2023 Patient is drowsy and sleeping most of the time this morning. Denied complaints of chest pain or shortness of breath. Patient has been afebrile. No nausea or vomiting. Patient is also on IV hydration with normal saline. Otherwise urine culture showed VRE and Hali. Patient is being continued on micafungin and vancomycin changed to daptomycin as per ID recommendations. Wound VAC is in place for thoracic incision.. Laboratory data showed WBC 4.7 hemoglobin 8.6 and platelets 434 Sodium 135 potassium 3.5 chloride 108 bicarb is 21 BUN 4 and creatinine 0.27 and blood sugar 76 and calcium 7.9. Await MRI of the brain to rule out any acute or subacute stroke, not seen on the CT. EEG was abnormal due to background slowing of moderate degree, suggestive of encephalopathy. No epileptiform activity was seen. Current medications reviewed. REVIEW OF SYSTEMS: Limited secondary to altered mentation PHYSICAL EXAMINATION: GENERAL: The patient is alert and oriented x 0 , HEENT: Pupils are round and equally reacting to light. EOMI. CARDIOVASCULAR: S1 and S2 present. No murmurs, rubs, or gallops. PULMONARY: Chest is clear to auscultation, no wheezing or crackles. ABDOMEN: Soft, nontender, nondistended, normoactive bowel sounds. No palpable organomegaly. MUSCULOSKELETAL: No joint swelling or deformity. EXTREMITIES: No cyanosis, clubbing, or pedal edema. NEUROLOGICAL: Disoriented SKIN: Surgical wound wound VAC in place Assessment and plan * Acute toxic metabolic encephalopathy * Polypharmacy * S/p fall suspect compression fracture of thoracic spine * Postoperative fluid collection rule out abscess. Continue with wound VAC to thoracic incision.. * VRE urinary tract infection * History of bipolar disorder * Chronic pulmonary embolism * Hypothyroid * Essential hypertension * In regards to acute metabolic encephalopathy, CT head negative for acute intracranial process, patient on multiple medications contributing to encephalopathy including narcotics, benzodiazepines Seroquel. Continue treatment for urinary tract infection and monitor for improvement patient was recently hospitalized and discharged on 06/26/2023 during that hospitalization patient had delirium as well * In regards to fall patient will need physical therapy Occupational Therapy evaluation maintain fall precautions * In regards to postoperative fluid collection, infectious disease and orthospine consulted to evaluate seroma versus abscess. Continue with Prevena wound VAC to the thoracic incision * In regards to urinary tract infection follow-up on blood cultures and urine cultures. Antibiotic changed to daptomycin due to VRE and continue with micafungin. * Regards to history of bipolar disorder continue patient on Lamictal and Seroquel * In regards to pulmonary embolism continue patient on Lovenox therapeutic dosing, Xarelto on hold in anticipation of surgical intervention * In regards to hypertension continue Coreg. CODE STATUS is full code Objective - Vital Signs Vital signs: Vital Signs Temp 97.7 F 07/07/23 20:00 Pulse 83 07/07/23 20:00 Resp 17 07/07/23 20:00 BP 170/96 07/07/23 20:00 Pulse Ox 93 L 07/07/23 20:00 FiO2 Intake & Output 07/07/23 07/07/23 07/08/23 06:59 18:59 06:59 Intake Total 118 100 Output Total 2100 500 Balance -2100 -382 100 Intake: Oral 118 100 Output: Urine 2100 500 Other: Voiding Method Indwelling Catheter Indwelling Catheter Indwelling Catheter - Labs CBC & Chem 7: 07/08/23 06:14 07/08/23 06:14 Labs: Abnormal Lab Results - Last 24 Hours (Table) 07/07/23 07/07/23 Range/Units 06:31 06:31 RBC 2.88 L (3.80-5.40) m/uL Hgb 8.6 L (11.4-16.0) gm/dL Hct 27.8 L (34.0-46.0) % RDW 16.3 H (11.5-15.5) % Lymphocytes # 0.7 L (1.0-4.8) k/uL Sodium 135 L (137-145) mmol/L Chloride 108 H (98-107) mmol/L Carbon Dioxide 21 L (22-30) mmol/L BUN 4 L (7-17) mg/dL Creatinine 0.27 L (0.52-1.04) mg/dL Calcium 7.9 L (8.4-10.2) mg/dL Microbiology - Last 24 Hours (Table) 07/04/23 19:44 Urine Culture - Preliminary Urine,Voided Enterococcus faecium VRE Yeast species 07/04/23 19:30 Blood Culture - Preliminary Blood 07/04/23 19:15 Blood Culture - Preliminary Blood
--- NOTE | 2023-07-08 13:53 | MR ---
EXAMINATION TYPE: MR brain wo con DATE OF EXAM: 07/08/2023 1:16 PM CLINICAL INDICATION:Female, 68 years old with history of confusion with aphasia; PHH, Confusion with aphasia COMPARISON: 11/13/2016. TECHNIQUE: Multi planar, multi sequence imaging was performed through the brain including: T1, T2, In version recovery, Diffusion weighted imaging, and gradient echo imaging. No gadolinium was given. FINDINGS: Mild cerebral atrophy with proportional dilation of ventricular system. Scattered foci of high T2 s ignal intensity are seen within the periventricular white matter. Midline structures show no abnormal ity. Diffusion-weighted imaging shows no evidence of restricted diffusion. The susceptibility weighte d images do not reveal any evidence for micro-hemorrhage. The bone marrow signal is within normal limits. Paranasal sinuses and mastoid air cells: No significant paranasal sinus disease. Visualized orbits: Orbital contents are intact. IMPRESSION: 1. No evidence of intracranial mass or acute/subacute infarct. 2. Nonspecific white matter changes, likely secondary to small vessel ischemic disease.
--- NOTE | 2023-07-08 13:57 | P.PN ---
Subjective Progress Note Date: 07/08/23 Principal diagnosis: Postop abscess Patient seen at bedside this afternoon lying semirecumbent position. Prevena dressing is present over spine. Patient just got back from MRI. Patient is lethargic and confused throughout the encounter. History is difficult to obtain due to patient's mental state. Prerenal wound VAC dressing was placed on Thursday. Objective - Vital Signs Vital signs: Vital Signs Temp 98.2 F 07/08/23 08:21 Pulse 88 07/08/23 08:21 Resp 16 07/08/23 08:21 BP 166/90 07/08/23 08:21 Pulse Ox 94 L 07/08/23 08:21 FiO2 Intake & Output 07/07/23 07/08/23 07/08/23 18:59 06:59 18:59 Intake Total 118 110 0 Output Total 500 1125 1100 Balance -382 -1015 -1100 Intake: IV 10 Invasive Line 3 10 Oral 118 100 0 Output: Urine 500 1125 1100 Other: Voiding Method Indwelling Catheter Indwelling Catheter Indwelling Catheter - Exam Prevena wound VAC dressing is present over the spine at this time. Negative for any active drainage. Dressing appears to be holding well at this time. Neg ative for any drainage. Negative for any ecchymosis or erythema. Sensation is equal, symmetric, bilaterally intact of the upper and lower extremities. Patient does have good range of motion throughout bilateral upper and lower extremities on exam. There is some generalized tenderness to patient's surrounding incision on spine. Nontender to palpation throughout rest exam. Motor exam grossly intact. Neurovascular status intact. Radial pulse intact, 2+ bilaterally. Cap refill under 3 seconds in digits of the upper extremities. Negative Homans bilaterally. Negative Chucky bilaterally. Negative clonus bilaterally. - Labs CBC & Chem 7: 07/08/23 06:14 07/08/23 06:14 Labs: Abnormal Lab Results - Last 24 Hours (Table) 07/08/23 07/08/23 Range/Units 06:14 06:14 RBC 2.61 L (3.80-5.40) m/uL Hgb 7.6 L (11.4-16.0) gm/dL Hct 25.4 L (34.0-46.0) % MCHC 30.1 L (31.0-37.0) g/dL RDW 16.5 H (11.5-15.5) % Lymphocytes # 0.5 L (1.0-4.8) k/uL Sodium 135 L (137-145) mmol/L Potassium 3.4 L (3.5-5.1) mmol/L Chloride 109 H (98-107) mmol/L BUN 3 L (7-17) mg/dL Creatinine 0.23 L (0.52-1.04) mg/dL Calcium 7.8 L (8.4-10.2) mg/dL Microbiology - Last 24 Hours (Table) 07/04/23 19:44 Urine Culture - Final Urine,Voided Enterococcus faecium VRE Hali albicans 07/04/23 19:30 Blood Culture - Preliminary Blood 07/04/23 19:15 Blood Culture - Preliminary Blood Assessment and Plan Assessment: Previous Revision T6T10 posterior stabilization with ORIF at T9 Previous [id number] decompression and fusion Delayed wound healing Multiple complex comorbidities Plan: 1. Previous Revision T6T10 posterior stabilization with ORIF at T9; Previous [id number] decompression and fusion; Delayed wound healing; Multiple complex comorbidities - peroneal wound VAC dressing is in place over spine. Appears to be dry and intact. Holding well. Maintain wound VAC dressing at this time. Pain medication as needed. Plain to turn every 2 hours take pressure off spine. Work with therapy daily. Weightbearing as tolerated with walker and assistance. Ortho will be available as needed to see patient. 2. Appreciate medical management 3. Pain management - Tylenol 4. GI prophylaxis recs 5. DVT prophylaxis - Lovenox 6. PT/OT - weightbearing as tolerable walker and assistance 7. Encourage incentive spirometer use Time with Patient: Less than 30
[2023-07-08] MEDS: POTASSIUM CHLORIDE 20 MEQ in WATER FOR INJECTION 1 100ML.BAG IVPB STA (14:08)
[2023-07-08] MEDS: ANIDULAFUNGIN 100 MG in SODIUM CHLORIDE 0.9% 100 ML IVPB SCH (17:07)
[2023-07-08] MEDS: LORazepam 2 MG/ML INJ ONE (17:20)
[2023-07-08] MEDS: ONDANSETRON 4 MG/2 ML VIAL IVP PRN (19:49)
[2023-07-09 08:47] LABS: Anisocytosis Slight; Basophils # (A) 0.1 k/uL (0-0.2); Basophils % (A) 1 %; Eosinophils # (A) 0.2 k/uL (0-0.7); Eosinophils % (A) 4 %; HCT 29.4 % (34.0-46.0); HGB 8.7 gm/dL (11.4-16.0); Hypochromasia Marked; Lymphocytes # (A) 0.7 k/uL (1.0-4.8); Lymphocytes % (A) 14 %; MCH 29.2 pg (25.0-35.0); MCHC 29.6 g/dL (31.0-37.0); MCV 98.4 fL (80.0-100.0); Macrocytosis Slight; Mean Platelet Volume 8.2; Monocytes # (A) 0.6 k/uL (0-1.0); Monocytes % (A) 11 %; Neutrophils # (A) 3.6 k/uL (1.3-7.7); Neutrophils % (A) 69 %; Platelet Count 399 k/uL (150-450); RBC 2.99 m/uL (3.80-5.40); RDW 16.7 % (11.5-15.5); WBC 5.2 k/uL (3.8-10.6)
--- NOTE | 2023-07-09 08:57 | P.PN ---
Subjective Progress Note Date: 07/09/23 Principal diagnosis: Post-op abscess Patient seen and examined this morning. Patient is resting comfortably in bed. Patient remains pleasantly confused. She is unable to follow commands at this time. Sitter at bedside, she assisted with turning patient to her side for dressing change. Prevena wound vac has been discontinued. Optifoam dressing applied. Incision is approximated with sutures intact. Surrounding tissue is macerated. Continue to reposition patient with pillows to offload pressure the incision. No events overnight. Objective - Vital Signs Vital signs: Vital Signs Temp 97.5 F L 07/09/23 03:41 Pulse 75 07/09/23 00:00 Resp 16 07/09/23 03:41 BP 140/99 07/09/23 03:41 Pulse Ox 93 L 07/09/23 03:41 FiO2 Intake & Output 07/08/23 07/09/23 07/09/23 18:59 06:59 18:59 Intake Total 118 10 Output Total 1100 1075 Balance -982 -1065 Intake: IV 10 Invasive Line 3 10 Oral 118 Output: Urine 1100 1075 Other: Voiding Method Indwelling Catheter Indwelling Catheter - Exam Inspection: Negative for any open fractures. Surgical incision to the thoracic spine, Prevena wound vac has been removed. Incision is approximated with sutures intact. Surrounding tissue is macerated. New surgical dressing applied. Patient is moving BUE and BLE freely without any difficulty. Physical exam is limited due to AMS. Neurovascular: Radial pulse intact, 2+ bilaterally. Cap refill under 3 seconds in digits upper extremities. - Labs CBC & Chem 7: 07/08/23 06:14 07/08/23 06:14 Labs: Abnormal Lab Results - Last 24 Hours (Table) 07/08/23 07/08/23 Range/Units 06:14 06:14 RBC 2.61 L (3.80-5.40) m/uL Hgb 7.6 L (11.4-16.0) gm/dL Hct 25.4 L (34.0-46.0) % MCHC 30.1 L (31.0-37.0) g/dL RDW 16.5 H (11.5-15.5) % Lymphocytes # 0.5 L (1.0-4.8) k/uL Sodium 135 L (137-145) mmol/L Potassium 3.4 L (3.5-5.1) mmol/L Chloride 109 H (98-107) mmol/L BUN 3 L (7-17) mg/dL Creatinine 0.23 L (0.52-1.04) mg/dL Calcium 7.8 L (8.4-10.2) mg/dL Microbiology - Last 24 Hours (Table) 07/04/23 19:44 Urine Culture - Final Urine,Voided Enterococcus faecium VRE Hali albicans Assessment and Plan Assessment: Previous Revision T6T10 posterior stabilization with ORIF at T9 Previous [id number] decompression and fusion Delayed wound healing Multiple complex comorbidities Plan: Reposition patient every 2 hours to keep pressure off of her back, position with pillows. Continue with IV antibiotics. 2. Appreciate medical management 3. Pain management - Tylenol and Flexeril 4. GI prophylaxis - per medicine 5. DVT prophylaxis - Lovenox 6. PT/OT - weightbearing as tolerated with a walker as needed. 7. Appreciate consult I reviewed and discussed this case with my attending Dr. Flores, whom has reviewed this chart and films and is in agreement with assessment and plan of care as outlined above. I have personally seen and examined the patient, performed the documentation and the assessment and plan as written. Number of minutes spent on the visit: 30m.
[2023-07-09 09:03] LABS: African American GFR (CKD) >90 (>60 ml/min/1.73 sqM); Anion Gap 5 mmol/L; Blood Urea Nitrogen 3 mg/dL (7-17); Calcium 8.2 mg/dL (8.4-10.2); Carbon Dioxide 21 mmol/L (22-30); Chloride 111 mmol/L (98-107); Glucose 70 mg/dL (74-99); Non-African American GFR(CKD) >90 (>60 ml/min/1.73 sqM); Potassium 3.9 mmol/L (3.5-5.1); Sodium 137 mmol/L (137-145)
--- NOTE | 2023-07-09 10:06 | P.PN ---
Subjective Progress Note Date: 07/08/23 07/08/2023: Patient was seen for a follow-up. Patient continues to be very confused. The sitter at bedside mentioned that she has not slept. Maybe slept only 1 hour last night. She may take very short naps during the day. Patient states she is doing better, tired. 07/07/2023: Patient was seen for a follow-up. Patient is laying in the bed, appears slightly less delirious. Per nurse, patient continues to be very aphasic. She speaks with word salad. She is trying to save, but cannot and sometimes it is random stuff. Patient is undergoing MRI of the brain today. Patient denies any history of alcohol use. Family has mentioned that in March 2023, patient was noted not to able to move her left arm and leg. 07/06/2023: Patient was seen for a follow-up. Patient initially seen by Dr. Julio Duffy. Please refer to his note for details. Patient has history of 3 surgeries since March 2023. Patient is still confused, calling for her dad, who is . Patient's daughter was present. She states that patient does have slight memory loss for some time but no major issues. She is concerned about dementia. Patient is very confused, delirious, sitter is present. Some of the workup during his hospital visit consisted of: ESR is 13 CT of the head is reported as no acute intracranial process. Nonspecific white matter changes and the mild cerebral atrophy. CT cervical spine is reported as some buckling of the T2 vertebral body with possible superior endplate deformity suspicious for fracture. Moderate to severe degeneration changes CT of thoracic lumbar is reported as small organization fluid collection in the upper back favored represent small abscess consider ultrasound imaging. Multilevel fixation changes of the spine with hardware in place. Hardware appears intact. Patient has a wound VAC that has been applied to the thoracic incision. Urinalysis it's cloudy, leukocyte esterase was large, urine white blood cell 125, urine bacteria is rare. Of note patient had vitamin B12 was end of May 2023 and it's 1024, red blood cell folate also around the same time is 840 TSH in June 2023 is 0.755 Objective - Vital Signs Vital signs: Vital Signs Temp 98.2 F 07/08/23 08:21 Pulse 88 07/08/23 08:21 Resp 16 07/08/23 08:21 BP 166/90 07/08/23 08:21 Pulse Ox 94 L 07/08/23 08:21 FiO2 Intake & Output 07/07/23 07/08/23 07/08/23 18:59 06:59 18:59 Intake Total 118 110 0 Output Total 500 1125 1100 Wtoswdr -985 -2634 -1829 Intake: IV 10 Invasive Line 3 10 Oral 118 100 0 Output: Urine 500 1125 1100 Other: Voiding Method Indwelling Catheter Indwelling Catheter Indwelling Catheter - Exam Patient is delirious, confused, but appears better than yesterday. Patient is laying in the bed. Appears comfortable. Patient sometimes answers appropriately, but other times she rambles. Patient not able to tell what city state she is in. Regarding the month patient states "Thursday". Patient strength appears fairly equal. Repertoire Manager is equal. Biceps are normal, triceps appears slightly weak on the left. She moves her legs. Patient did not cooperate with the lower extremity testing. - Labs CBC & Chem 7: 07/09/23 07:19 07/09/23 07:19 Labs: Abnormal Lab Results - Last 24 Hours (Table) 07/08/23 07/08/23 Range/Units 06:14 06:14 RBC 2.61 L (3.80-5.40) m/uL Hgb 7.6 L (11.4-16.0) gm/dL Hct 25.4 L (34.0-46.0) % MCHC 30.1 L (31.0-37.0) g/dL RDW 16.5 H (11.5-15.5) % Lymphocytes # 0.5 L (1.0-4.8) k/uL Sodium 135 L (137-145) mmol/L Potassium 3.4 L (3.5-5.1) mmol/L Chloride 109 H (98-107) mmol/L BUN 3 L (7-17) mg/dL Creatinine 0.23 L (0.52-1.04) mg/dL Calcium 7.8 L (8.4-10.2) mg/dL Microbiology - Last 24 Hours (Table) 07/04/23 19:44 Urine Culture - Final Urine,Voided Enterococcus faecium VRE Hali albicans 07/04/23 19:30 Blood Culture - Preliminary Blood 07/04/23 19:15 Blood Culture - Preliminary Blood Assessment and Plan Assessment: This is a 68-year-old woman with history of back pain with surgery March 2023 and since the back surgery she's been having confusion that's worsening with the speech difficulty. She is a been in and out of the hospital because of her confusion. She had multiple urinary tract infection. She had a fall in April 2023 and had burst fracture at T9 which she had the surgery afterwards as a result. Patient confusion with aphasia seems more delirium from UTI as well as abscess. Acute UTI with Enterococcus faecium VRE, and yeast species. ID on board. Surgical site infection, patient has wound VAC History of recurrent UTI. Chronic lower back pain with unsteady gait status post D12qclofl decompression and fusion in March 2023 that the patient had a fall in 04/2023 and had fracture T9 then had surgery on 05/15/2023 History of pulmonary embolism on Xarelto Plan: Patient has acute delirium. Cannot evaluate for cognitive functions while patient is delirious. Patient's daughter was recommended that once her delirium has resolved, and all medical conditions under control, and then if she still has memory disturbance, should follow-up with neurologist outpatient for further evaluation of cognitive functions. Recommend psychiatric consultation for persistent delirium, altered mentation Patient currently on Seroquel 50 mg in the morning, and 400 mg at bedtime. We will empirically start thiamine 100 mg daily. No history of alcoholism. MRI of the brain without contrast revealed no evidence of intracranial mass, acute/subacute infarct. Nonspecific white matter changes, likely secondary to small vessel ischemic disease. I personally reviewed MRI brain, agree with the findings. EEG was abnormal due to background slowing of moderate degree, suggestive of encephalopathy. No epileptiform activity was seen. Patient had a recent TSH, vitamin B-12 and folate therefore no need to repeat. Check NMDA antibodies If possible avoid opiates and benzos Orthopedic is on board Patient's urine cultures have grown Enterococcus faecium VRE, and yeast species. Patient currently on Eraxis, daptomycin. ID following. I'll defer the rest of the medical management to primary and other specialists Discussed with primary physician.
--- NOTE | 2023-07-09 13:04 | P.PN ---
Subjective Progress Note Date: 07/08/23 Principal diagnosis: Reason for follow-up is UTI and abnormal CT thoracolumbar spine Patient is a 68-year-old female past medical history anxiety bipolar depression, patient recently did have extensive T10 to pelvis decompression and fusion by Dr. Sheehan 7 in March 2023 subsequently patient did have a T9 burst fracture status post T6-10 posterior stabilization with ORIF on May 15, 2023 patient did have a recent admission to the hospital concerning for possible cellulitis infection to the thoracic spine area patient is status post I&D and cultures was negative, the patient has not been brought back to the hospital concerning for mental status changes did have a abnormal CT suggestive of fluid collection possible abscess. On today's evaluation that is 07/08/2023,the patient remains to be afebrile, the patient is currently breathing comfortably on room which is slightly more awake and alert however still not a good historian no other changes reported by the sitter at the bedside. Patient did have a white count of 5.7 creatinine 0.23 blood culture negative Objective - Vital Signs Vital signs: Vital Signs Temp 98.1 F 07/08/23 20:00 Pulse 86 07/08/23 20:00 Resp 18 07/08/23 20:00 BP 150/94 07/08/23 20:00 Pulse Ox 95 07/08/23 20:00 FiO2 Intake & Output 07/08/23 07/08/23 07/09/23 06:59 18:59 06:59 Intake Total 110 118 10 Output Total 1125 1100 675 [facility] -1015 -982 -665 Intake: IV 10 10 Invasive Line 3 10 10 Oral 100 118 Output: Urine 1125 1100 675 Other: Voiding Method Indwelling Catheter Indwelling Catheter Indwelling Catheter - Exam GENERAL DESCRIPTION: An elderly female lying in bed in no distress RESPIRATORY SYSTEM: Unlabored breathing , decreased breath sounds at bases HEART: S1 S2 regular rate and rhythm , ABDOMEN: Soft , no tenderness EXTREMITIES: No edema feet - Labs CBC & Chem 7: 07/09/23 07:19 07/09/23 07:19 Labs: Abnormal Lab Results - Last 24 Hours (Table) 07/08/23 07/08/23 Range/Units 06:14 06:14 RBC 2.61 L (3.80-5.40) m/uL Hgb 7.6 L (11.4-16.0) gm/dL Hct 25.4 L (34.0-46.0) % MCHC 30.1 L (31.0-37.0) g/dL RDW 16.5 H (11.5-15.5) % Lymphocytes # 0.5 L (1.0-4.8) k/uL Sodium 135 L (137-145) mmol/L Potassium 3.4 L (3.5-5.1) mmol/L Chloride 109 H (98-107) mmol/L BUN 3 L (7-17) mg/dL Creatinine 0.23 L (0.52-1.04) mg/dL Calcium 7.8 L (8.4-10.2) mg/dL Microbiology - Last 24 Hours (Table) 07/04/23 19:44 Urine Culture - Final Urine,Voided Enterococcus faecium VRE Hali albicans 07/04/23 19:30 Blood Culture - Preliminary Blood 07/04/23 19:15 Blood Culture - Preliminary Blood Assessment and Plan (1) Surgical site infection Current Visit: Yes Status: Acute Code(s): T81.49XA - INFECTION FOLLOWING A PROCEDURE, OTHER SURGICAL SITE, INIT SNOMED Code(s): 43058078 (2) UTI (urinary tract infection) Current Visit: Yes Status: Acute Code(s): N39.0 - URINARY TRACT INFECTION, SITE NOT SPECIFIED SNOMED Code(s): 30984961 Plan: 1patient presented to hospital with mental status changes which is likely multifactorial patient recently did have multiple surgeries to the thoracolumbar spine area and the patient noticed to have abnormal CT with a small fluid collection concerning for possible postop seroma versus abscess patient already fever white count is normal abscess less likely not excluded also have a positive UA concerning for possible component of symptomatic UTI 2-patient did have elevated CRP sed rate is normal at 13, urine is growing VRE and yeast 3-patient seen to be slightly more awake alert today and we will continue the patient on daptomycin along with Eraxis and monitor clinical course closely Dictation was produced using [employer] dictation software. please excuse any grammatical, word or spelling errors. Time with Patient: Less than 30
--- NOTE | 2023-07-09 13:05 | P.PN ---
Subjective Progress Note Date: 07/09/23 Principal diagnosis: Reason for follow-up is UTI and abnormal CT thoracolumbar spine Patient is a 68-year-old female past medical history anxiety bipolar depression, patient recently did have extensive T10 to pelvis decompression and fusion by Dr. Sheehan 7 in March 2023 subsequently patient did have a T9 burst fracture status post T6-10 posterior stabilization with ORIF on May 15, 2023 patient did have a recent admission to the hospital concerning for possible cellulitis infection to the thoracic spine area patient is status post I&D and cultures was negative, the patient has not been brought back to the hospital concerning for mental status changes did have a abnormal CT suggestive of fluid collection possible abscess. On today's evaluation that is 07/09/2023,the patient continues to be afebrile patient is on room air and seem to be breathing comfortably patient is slightly more lethargic and confused today has been moaning and complaining of pain but unable to localize the site of pain no other changes reported by the sitter at the bedside Patient white count is 5.2 creatinine 0.28, blood cultures so far negative Objective - Vital Signs Vital signs: Vital Signs Temp 97.8 F 07/09/23 08:34 Pulse 96 07/09/23 11:51 Resp 16 07/09/23 11:51 BP 155/90 07/09/23 11:51 Pulse Ox 95 07/09/23 11:51 FiO2 Intake & Output 07/08/23 07/09/23 07/09/23 18:59 06:59 18:59 Intake Total 118 10 110 Output Total 1100 1075 Balance -982 -1065 110 Intake: IV 10 Invasive Line 3 10 Oral 118 110 Output: Urine 1100 1075 Other: Voiding Method Indwelling Catheter Indwelling Catheter Indwelling Catheter - Exam GENERAL DESCRIPTION: An elderly female lying in bed in no distress RESPIRATORY SYSTEM: Unlabored breathing , decreased breath sounds at bases HEART: S1 S2 regular rate and rhythm , ABDOMEN: Soft , no tenderness EXTREMITIES: No edema feet - Labs CBC & Chem 7: 07/09/23 07:19 07/09/23 07:19 Labs: Abnormal Lab Results - Last 24 Hours (Table) 07/09/23 07/09/23 Range/Units 07:19 07:19 RBC 2.99 L (3.80-5.40) m/uL Hgb 8.7 L (11.4-16.0) gm/dL Hct 29.4 L (34.0-46.0) % MCHC 29.6 L (31.0-37.0) g/dL RDW 16.7 H (11.5-15.5) % Lymphocytes # 0.7 L (1.0-4.8) k/uL Chloride 111 H (98-107) mmol/L Carbon Dioxide 21 L (22-30) mmol/L BUN 3 L (7-17) mg/dL Creatinine 0.28 L (0.52-1.04) mg/dL Glucose 70 L (74-99) mg/dL Calcium 8.2 L (8.4-10.2) mg/dL Microbiology - Last 24 Hours (Table) 07/04/23 19:44 Urine Culture - Final Urine,Voided Enterococcus faecium VRE Hali albicans Assessment and Plan (1) Surgical site infection Current Visit: Yes Status: Acute Code(s): T81.49XA - INFECTION FOLLOWING A PROCEDURE, OTHER SURGICAL SITE, INIT SNOMED Code(s): 01810859 (2) UTI (urinary tract infection) Current Visit: Yes Status: Acute Code(s): N39.0 - URINARY TRACT INFECTION, SITE NOT SPECIFIED SNOMED Code(s): 92458741 Plan: 1patient presented to hospital with mental status changes which is likely multifactorial patient recently did have multiple surgeries to the thoracolumbar spine area and the patient noticed to have abnormal CT with a small fluid collection concerning for possible postop seroma versus abscess patient already fever white count is normal abscess less likely not excluded also have a positive UA concerning for possible component of symptomatic UTI 2-patient did have elevated CRP sed rate is normal at 13, urine is growing VRE and yeast 3-patient remains to be afebrile white count is normal however mentation remains to be an issue MRI was negative for any acute changes neurology is following the patient we will continue the patient on daptomycin along with Eraxis for UTI and monitor clinical course closely Dictation was produced using [employer] dictation software. please excuse any grammatical, word or spelling errors. Time with Patient: Less than 30
--- NOTE | 2023-07-09 14:27 | P.CN ---
Psychiatric Consult - . Consult date: 07/09/23 Consult:: 07/09/23 13:08 IDENTIFYING DATA: This patient is a 68-year-old female with history of bipolar disorder who was admitted from [facility] with altered mental status s/p back surgery in March 2023. REASON FOR REFERRAL: Psychiatry was consulted for AMS, delirium, confusion HISTORY OF PRESENT ILLNESS: Patient has a history of bipolar disorder, has been gradually becoming more altered in her mentation, delirious. She apparently had a back surgery in March 2023 and has progressively worsened. Patient was admitted on 07/03 after a fall and increased altered mental status. Patient is bedbound at baseline. Patient apparently has been confused not following many commands and tossing and turning in her bed, poor attention span. Patient has a sitter at the bedside for safety. Patient had an MRI which did not show any acute changes. Patient did have an EEG which showed no evidence of seizure however did show evidence of encephalopathy. Neurology is currently on board. Grove Worker attempted to see patient at the bedside however patient was moving, opening her eyes briefly then turning away. Attempted to answer questions however was garbled speech, unable to comprehend. She was not able to follow any commands. She was not able to answer any questions. The past psychiatric history and social history was taken from previous consultation from Dr. Robins. PAST PSYCHIATRIC HISTORY: Patient has a a history of bipolar disorder and depression. Current psychiatric medications: Ativan PRN, Seroquel, Lamictal, Trazodone. Previously on Zoloft as of 05/2023, unclear when this was discontinued. Previous [place] [facility] [place]. Psychiatric outpatient follow-up not known at this time. History of suicide attempts not known at this time; none per chart. PAST MEDICAL HISTORY: Past Medical History: No Reported History Additional Past Medical History / Comment(s): IRON DEFICIENCY ANEMIA. History of Any Multi-Drug Resistant Organisms: None Reported Past Surgical History: Back Surgery, Bariatric Surgery, Orthopedic Surgery Additional Past Surgical History / Comment(s): right shoulder, left shoulder, gastric bypass Past Anesthesia/Blood Transfusion Reactions: No Reported Reaction Past Psychological History: Anxiety, Bipolar, Depression Smoking Status: Never smoker Past Alcohol Use History: Abuse Past Drug Use History: Prescription Drug Abuse ALLERGIES: as per EMR. CHEMICAL DEPENDENCY HISTORY: as per HPI. FAMILY PSYCHIATRIC/SUBSTANCE USE HISTORY: Not known at this time. SOCIAL HISTORY: . Has an adult son she was living with, is currently in physical rehab after back surgery and falls. She has 4 adult kids. MENTAL STATUS EXAM: General Appearance: Patient appears to be stated age, mildly disheveled with dry lips. Fair hygiene and grooming. Behavior: Confused, groans incoherently, poor eye contact. Speech: Groans incoherently. No meaningful dialogue. Mood/Affect: Not able to fully assess due to delirium; affect is constricted. Suicidality/Homicidality: Not able to fully assess due to delirium Perceptions: Not able to fully assess due to delirium. Does not appear to be attending to internal stimuli. Though content/process: Groans incoherently, unable to fully assess due to delirium Memory and concentration: Awakens, poor attention span, oriented x 0. Judgment and insight: poor/impulsive IMPRESSIONS: Delirium, multifactorial (infection, anemia, s/p surgery, polypharmacy, age, possible medication side effect, pain) History of bipolar disorder PLAN: -At this time patient DOES NOT meet criteria for inpatient psychiatric admission. -Patient DOES NOT have decision making capacity at this time and is unable to reason through and communicate/appreciate the risks, benefits and alternatives to treatment. -Delirium precautions recommended with patient including - avoiding use of narcotics and GEOLOGICAL ENGINEER sedatives, limit anticholinergic medications when possible, frequent re-orientation, minimize use of restraints, open window shades during the day and close them at night. -Would recommend the following medication changes/additions: Continue with Seroquel from 50 mg QAM/400 mg QHS for mood stabilization/insomnia. zyprexa 5 mg tid prn for agitation/psychosis. Discontinue Ativan as needed as this will likely be precipitating confusion and delirium. Decrease Lamictal 100 mg BID as this may be causing confusion and possibly neurological symptoms, will continue to taper down gradually. -Neurology on board, appreciate recommendations. EEG was abnormal due to background slowing of moderate degree, suggestive of encephalopathy. No epileptiform activity was seen. -Will continue to follow along as needed -Please contact with any questions. 07/09/23 14:21 07/09/23 14:27
[2023-07-09] MEDS: OLANZapine 5 MG TAB PO PRN (15:36)
[2023-07-09] MEDS: busPIRone HCl 10 MG TAB PO SCH (15:36)
[2023-07-09] MEDS: lamoTRIgine 100 MG TAB PO SCH (21:01)
--- NOTE | 2023-07-10 12:13 | CDI ---
Documentation Clarification Form Date: 07/10/2023 10:08:35 AM From: Ashley Hayward RN CCDS Phone: [phone] Admit Date: 07/04/2023 11:35:00 PM Patient Name: Darline Chiang Visit Number: [id number] Discharge Date: ATTENTION: The Clinical Documentation Specialists (CDI) and [facility] Coding Staff appreciate your assistance in clarifying documentation. Please respond to the clarification below the line at the bottom and electronically sign. The CDI & [facility] Coding staff will review the response and follow-up if needed. Please note: Queries are made part of the Legal Health Record. If you have any questions, please contact the author of this message via ITS. Dr. Garry Sanchez UTI is documented in ID notes 07/04 07/08 and patient has a weiss catheter on admission. Additional clarification regarding the etiology of the UTI is requested. History/Risk Factors: 68 year old female presents to the ED from [facility] with altered mental status and a fall. Medical History: Lower back surgery T10/pelvis 03/2023 post surgery worsening confusion with speech difficulty. Has had multiple urinary tract infections. 05/15/2023 The patient underwent T6-T10 posture stabilization with ORIF after a fall and iron deficiency anemia. 07/04, Neuro consult. Clinical Indicators: Nursing Assessment Urinary catheter management, 07/03: Catheter Uretheral Weiss, present on admission. Placed by previous facility. Urinalysis, 07/03: Color light yellow; Protein trace; Blood small; Leukocyte Esterase Large, RBC 43, Wbc 125, Calcium Oxalate crystal rare, Urine bacteria rare, Hyaline casts 2; Mucus many; Yeast budding few. Urine culture, 07/03: Enterococcus faecium VRE Hali albicans ID note, 07/08: we will continue the patient on daptomycin along with Eraxis for UTI and monitor clinical course closely Treatment: 07/06 Daptomycin 200mg IVPB; 07/07 Anidulagungin 100mg IVPB Please clarify the etiology of the UTI, if known: [ x] Weiss catheter [ ] UTI not related to catheter [ ] Other condition, please specify [ ] Unable to determine (Template Last Revised: June 2020) MTDD
[2023-07-10] MEDS: ACETAMINOPHEN IV (For NPO) 1,000 MG in EMPTY BAG 1 BAG IVPB ONE (15:19)
--- NOTE | 2023-07-10 15:45 | P.PN ---
Subjective Progress Note Date: 07/10/23 Principal diagnosis: Reason for follow-up is UTI and abnormal CT thoracolumbar spine Patient is a 68-year-old female past medical history anxiety bipolar depression, patient recently did have extensive T10 to pelvis decompression and fusion by Dr. Sheehan 7 in March 2023 subsequently patient did have a T9 burst fracture status post T6-10 posterior stabilization with ORIF on May 15, 2023 patient did have a recent admission to the hospital concerning for possible cellulitis infection to the thoracic spine area patient is status post I&D and cultures was negative, the patient has not been brought back to the hospital concerning for mental status changes did have a abnormal CT suggestive of fluid collection possible abscess. On today's evaluation that is 07/10/2023, the patient continues to be afebrile, the patient is on room air and breathing comfortably, the Pt remains to be pleasantly confused and unable to provide any history no changes reported by the sitter at the bedside. Patient white count is 5.2, creatinine 0.28 blood cultures so far negative Objective - Vital Signs Vital signs: Vital Signs Temp 98.4 F 07/10/23 08:08 Pulse 87 07/10/23 08:08 Resp 17 07/10/23 08:08 BP 145/87 07/10/23 08:08 Pulse Ox 94 L 07/10/23 08:08 FiO2 Intake & Output 07/09/23 07/10/23 07/10/23 18:59 06:59 18:59 Intake Total 220 Output Total 675 1050 1400 Balance -455 1050 -1400 Weight 68.5 kg 68.5 kg Intake: Oral 220 Output: Urine 675 1050 1400 Other: Voiding Method Indwelling Catheter Indwelling Catheter Indwelling Catheter - Exam GENERAL DESCRIPTION: An elderly female lying in bed in no distress RESPIRATORY SYSTEM: Unlabored breathing , decreased breath sounds at bases HEART: S1 S2 regular rate and rhythm , ABDOMEN: Soft , no tenderness EXTREMITIES: No edema feet - Labs CBC & Chem 7: 07/09/23 07:19 07/09/23 07:19 Labs: Microbiology - Last 24 Hours (Table) 07/04/23 19:30 Blood Culture - Final Blood 07/04/23 19:15 Blood Culture - Final Blood Assessment and Plan (1) Surgical site infection Current Visit: Yes Status: Acute Code(s): T81.49XA - INFECTION FOLLOWING A PROCEDURE, OTHER SURGICAL SITE, INIT SNOMED Code(s): 34348768 (2) UTI (urinary tract infection) Current Visit: Yes Status: Acute Code(s): N39.0 - URINARY TRACT INFECTION, SITE NOT SPECIFIED SNOMED Code(s): 08350339 Plan: 1patient presented to hospital with mental status changes which is likely multifactorial patient recently did have multiple surgeries to the thoracolumbar spine area and the patient noticed to have abnormal CT with a small fluid collection concerning for possible postop seroma versus abscess patient already fever white count is normal abscess less likely not excluded also have a positive UA concerning for possible component of symptomatic UTI 2-patient did have elevated CRP sed rate is normal at 13, urine is growing VRE and yeast 3-patient remains to be afebrile white count is normal however mentation remains to be an issue MRI was negative for any acute changes neurology is following the patient as well as psychiatry 4-we will continue the patient on daptomycin along with Eraxis and monitor cl inical course closely Dictation was produced using [employer] dictation software. please excuse any gram matical, word or spelling errors. Time with Patient: Less than 30
[2023-07-10] MEDS: LACTATED RINGERS 1,000 ML IV ONE ×2 (17:32→19:53)
--- NOTE | 2023-07-10 19:15 | P.PN ---
Subjective Progress Note Date: 07/10/23 68-year-old patient with past medical history significant for degenerative disease of spine recent spine surgery, history of pulm embolism, bipolar disorder, hypertension, presents to the emergency department from [facility] with complaints of altered mental status and a fall. Patient had an unwitnessed fall at the facility. Patient has been on Xarelto and had a CT head done which was negative for acute intracranial process. CT cervical spine does show degenerative changes Some bulking of T2 vertebral body noted concern for superior endplate deformity. CT thoracic spine was reviewed which showed small localizing fluid collection in the upper back concern for abscess. Multilevel degenerative changes were noted. * Blood work obtained in ER showed CBC with WBC count of 10.5, hemoglobin 8.1 platelet count of 431, INR of 1.8. Serum chemistry 132 potassium 4.4, dioxide 26 BUN 8 creatinine 0.24 calcium of 8 * Urinalysis obtained did show large amount of leukocyte esterase WBC bacteria noted * Patient tested negative for influenza COVID and RSV * ER patient continued to have altered mentation for which patient was given a dose of Narcan with some improvement * Patient admitted to medical floor with consultation from orthospine as well as infectious disease 07/06/23 Patient is in the telemetry unit. Awake alert but seems to be agitated and trying to get out of bed. No complaints of chest pain or shortness of breath. Patient does have underlying memory issues. Afebrile. No cough or sputum production. Continued on Prevena wound VAC to the thoracic incision Urine culture showed Enterococcus species final culture report pending. Patient is on vancomycin. ID is on board. Laboratory data showed WBC 5.3 hemoglobin 8.4 and platelets 453 Sodium 133 potassium 3.9 chloride 106 bicarb is 22 BUN 5 and creatinine 0.23 and calcium 7.9. CRP was 18.6. ID and orthopedic surgery is on board. 07/07/2023 Patient is drowsy and sleeping most of the time this morning. Denied complaints of chest pain or shortness of breath. Patient has been afebrile. No nausea or vomiting. Patient is also on IV hydration with normal saline. Otherwise urine culture showed VRE and Hali. Patient is being continued on micafungin and vancomycin changed to daptomycin as per ID recommendations. Wound VAC is in place for thoracic incision.. Laboratory data showed WBC 4.7 hemoglobin 8.6 and platelets 434 Sodium 135 potassium 3.5 chloride 108 bicarb is 21 BUN 4 and creatinine 0.27 and blood sugar 76 and calcium 7.9. Await MRI of the brain to rule out any acute or subacute stroke, not seen on the CT. EEG was abnormal due to background slowing of moderate degree, suggestive of encephalopathy. No epileptiform activity was seen. 07/10/2023 Patient is seen and evaluated in follow-up today continues on antibiotics with infectious disease following. Urine cultures showing Enterococcus with VRE. Multiple medical consultations following including orthopedics with plans on washout and revision of the recent surgery and patient is currently NPO. Patient continues with delirium which is multifactorial and recommend to limit narcotic and DBA DEVELOPER agents. Will add IV Tylenol as patient is moaning at times although does not significantly report pain. Await Ortho report. Patient continues with director product safety at bedside. Current medications reviewed. REVIEW OF SYSTEMS: Limited secondary to altered mentation PHYSICAL EXAMINATION: GENERAL: The patient is alert and oriented x 0 , well-developed, elderly appearing, ill-appearing HEENT: Pupils are round and equally reacting to light. EOMI. CARDIOVASCULAR: S1 and S2 muffled PULMONARY: Chest is clear to auscultation, no wheezing or crackles. ABDOMEN: Soft, nontender, nondistended, normoactive bowel sounds. No palpable organomegaly. MUSCULOSKELETAL: No joint swelling or deformity. EXTREMITIES: No cyanosis, clubbing, or pedal edema. NEUROLOGICAL: Disoriented SKIN: Surgical wound VAC in place Assessment: * Acute toxic metabolic encephalopathy, multifactorial likely secondary to polypharmacy, infection, UTI * Polypharmacy * S/p fall suspect compression fracture of thoracic spine * Postoperative fluid collection with concerns of abscess. Continue with wound VAC to thoracic incision.. * VRE urinary tract infection * History of bipolar disorder * Chronic pulmonary embolism * Hypothyroid * Essential hypertension * GI prophylaxis DVT prophylaxis Full code Plan: * In regards to acute metabolic encephalopathy, CT head negative for acute intracranial process, patient on multiple medications contributing to encephalopathy including narcotics, benzodiazepines Seroquel. Continue treatment for urinary tract infection with infectious disease following for Enterococcus VRE and patient is continued on daptomycin and Eraxis * IV Tylenol added for pain as patient is currently n.p.o. * Concerns for hospital-acquired delirium as well with psychiatry evaluating the patient and following making recommendations and again avoid DBA DEVELOPER and narcotic agents is much as possible * In regards to fall patient will need physical therapy Occupational Therapy evaluation maintain fall precautions * In regards to postoperative fluid collection, infectious disease and orthopedics following with plans of washout and revision of the recent surgery on the back today 07/10/2023 continue with Prevena wound VAC to the thoracic incision * Regards to history of bipolar disorder continue patient on Lamictal and Seroquel psychiatry following making adjustments to medications. * In regards to pulmonary embolism continue patient on Lovenox therapeutic dosing, Xarelto on hold in anticipation of surgical intervention. Will discuss with orthopedics when to resume anticoagulation * CODE STATUS is full code The impression and plan of care has been dictated by Tameka Burleson, Nurse Practitioner as directed. Dr. Lele MD I have performed a history and examination and MDM of this patient, discussed the same with the dictator, and agree with the dictator's assessment and plan as written ,documented as a scribe. Based on total visit time, I have performed more than 50% of the visit. Objective - Vital Signs Vital signs: Vital Signs Temp 98.4 F 07/10/23 08:08 Pulse 87 07/10/23 08:08 Resp 17 07/10/23 08:08 BP 145/87 07/10/23 08:08 Pulse Ox 94 L 07/10/23 08:08 FiO2 Intake & Output 07/09/23 07/10/23 07/10/23 18:59 06:59 18:59 Intake Total 220 Output Total 675 1050 375 Balance -455 -1050 -375 Weight 68.5 kg Intake: Oral 220 Output: Urine 675 1050 375 Other: Voiding Method Indwelling Catheter Indwelling Catheter - Labs CBC & Chem 7: 07/09/23 07:19 07/09/23 07:19 Labs: Microbiology - Last 24 Hours (Table) 07/04/23 19:30 Blood Culture - Final Blood 07/04/23 19:15 Blood Culture - Final Blood
[2023-07-10] MEDS ORDERED: fentaNYL (PF) 50 MCG/ML 2 ML AMP ONE (19:24)
[2023-07-10] MEDS ORDERED: LIDOCAINE 1% INJ 10MG/ML (20 ML MDV) ONE (19:24)
[2023-07-10] MEDS ORDERED: PHENYLEPHRINE 10 MG/ML VIAL ONE (19:24)
[2023-07-10] MEDS ORDERED: SUCCINYLCHOLINE CHLORIDE 200 MG/10 ML VIAL IV ONE (19:24)
[2023-07-10] MEDS ORDERED: PROPOFOL 10 MG/ML 20 ML VIAL IV ONE (19:24)
--- NOTE | 2023-07-10 19:34 | P.PN ---
Progress Note - Text Progress Note Date: 07/10/23 Patient was seen and examined in the preoperative unit. Discussed options including surgical and nonsurgical at this time. The patient is fairly alert and more so that she has been in the past however she is still difficult to understand that she is having somewhat trouble forming her words and has somewhat of a "word salad". Although her MRI and CT's were negative she likely a TIA versus CVA at this point. I discussed this with her and she understands. I did call her sons Oseas and Piero with the OR nurse sitting next to me to obtain over the phone consent for her procedure. I discussed the procedure with the sons in depth as well as the risks benefits and alternatives. I did a pologize them for the wound not healing however she is having difficulty healing due to multiple factors including comorbid conditions her current mental state as well as her stent and rehab the need for multiple surgeries with her fall and fracture. I discussed with them that this is a difficult situation however we will help them anyway weekend. I do want her to get better and we are trying ev erything we can to get this wound to heal. I discussed with them the operative procedure in the form of irrigation and debridement with wound closure. They understood. We discussed time under anesthesia to be limited as much as possible the likely be between 45 minutes to an hour we will try and limited as much as possible and we will take her time to do what is necessary and was best for the patient. They understood this. They are comfortable with us proceeding with the procedure today and expresses over the phone to myself and the operative nurse. Spine Surgery Clinical and Risk Review Darline Chiang is a 68 yo female presenting for evaluation of confusion, wound dehiscence. It was my pleasure to have seen and examined Darline Chiang . In our visit today we have had a chance to go over subjective complaints, physical examination findings and treatments including the natural course history without intervention and various interventional options. The patients imaging demonstrates possible fluid collection over the thoracic area upper portion. . On physical exam, Darline Chiang demonstrates wound dehiscence thoracic spine. I have explained to the patient that as their condition progresses it will cause further neurological deficits and eventual paralysis. Based on the patients imaging, physical exam, and the rapid progression and disabling nature of their symptoms, at this time I recommend surgery in the form or a: Irrigation and debridement of the thoracic spine wound with wound revision. I discussed the risk and benefits of this procedure at length with Darline Chiang . The patient her sons over the phone as they were not present, agreed to considered pursuing the procedure abovementioned. Prior to surgery, she should follow up with her PCP (Cardio, ID, IM etc) for clearance. Questions were invited and answered, and the patient wishes to proceed as outlined below. Currently, I am recommendin. Irrigation and debridement of the thoracic spine wound with wound revision 2. Follow up with PCP for surgical clearance 3. Review of surgical risks and benefits as well as an educational packet on the proposed surgical procedure. Risks: All surgical procedures come with inherent risks, including those related to positioning, anesthesia, intraoperative findings, and postoperative complications. It is important to understand that surgery does not come with any guarantee of a successful outcome as complications and adverse events are always possible. The patient was given a handout in office today discussing the surgical procedure and risks associated with the intervention, both of which were discussed with the patient. These risks include but are not limited to the following: * Experiencing same, different or even worse symptoms in back, neck, arms, or legs compared to before surgery. * Requiring further surgery or other forms of treatment presently or at some time in the future at same or other levels of the intended spine surgery. * On an extreme but fortunately relatively rare basis severe complication such as blindness, stroke, heart attack, temporary and/or permanent nerve inju ry, paralysis, coma, or may occur, sometimes without known explanation. * Surgical complications may include but are not limited to risk of infection, fluid accumulation in the surgical dissection site, including a seroma or hematoma, that requires additional surgery, wound drainage, bleeding, new numbness or weakness, vision changes/loss, spinal fluid leakage, non-healing and/or infected incision, headaches, difficulty or inability to swallow, hoarseness, hemopneumothorax, pneumothorax, impotence, retrograde ejaculation, vaginal dryness; injury to nerves, spinal cord, blood vessels, lymphatics or other vital organs (i.e., bowel injury, injury to the great vessels); heterotopic bone formation; complications related to the hardware such as screws, rods, cages including misplaced hardware, device failure, instrumentation at the wrong spine level, hardware fracture/breakage, or hardware loosening; vertebral failure of the spinal column above or below the newly placed hardware; retained surgical instrumentations or devices and the need for further surgery. * Medical risks of the planned spine surgery include but are not limited to generalized Infections to the whole body or local areas outside of the surgical site (sepsis), heart attack, bleeding, anaphylaxis, meningitis, seizure, epilepsy, hearing loss, burn hyde, laceration of the head or other areas of the body, bruising, hypersensitivity of the skin, bladder over distension; allergic reaction; shoulder injury related to positioning; fat, blood and air clots to other areas of the body like heart, lungs, brain; failure of internal organs such as lungs, kidneys, liver and excessive bleeding. If blood transfusions are necessary, note that transfusions may cause intolerance reactions such as anaphylaxis or other complex reactions. * Despite best efforts, the results of spine surgery might not heal in terms of bone, soft tissues such as skin, fascia, ligaments, and joints. Additionally, in order to achieve best possible results, spine surgery may be carried out beyond the initially planned levels and involve decompression, fusion including insertion of hardware at levels other than the original intended area of surgical interest change some portions of the procedure in order to ensure the best possible outcomes. * With spine surgery and spinal fusion, there are different off label uses of instrumentation (devices, implants and hardware) as well as biological substances (bone morphogenic proteins, demineralized bone matrix) as well as using extra bone from allograft sources (i.e. cadaver bone) or autograft (iliac crest bone, ribs, or the spine itself). The patient has been given information about these practices and their inherent risks and benefits. The patient has had a chance to review all the listed information, has been given print outs detailing this information, and has had all his/her questions answered to their satisfaction. It was my pleasure to have seen and examined Darline Chiang. In our visit today we have had a chance to go over my understanding of our patient's current condition, the natural course history without intervention and various interventional options. Questions were invited and answered, and the patient wishes to proceed as outlined above. I have seen and examined the patient for 25 minutes and we have spent more than 50% of the time in repeat and detailed counseling about the patient's condition, its natural course history with out and as much as can be predicted with surgery and re-review of various surgical t reatment options. In conclusion, Darline Chiang and her sons over the phone as they were not present, requested we proceed with the above suggested surgery and are willing to accept risks and limitations of the suggested surgery as nature of the disease process and our best attempts at treatment for the condition. Thank you again for allowing us to be part of your patient's care. Please don't hesitate to contact me if you have any further questions. Signed and authenticated by: Bertin Quezada [facility] [address]
[2023-07-10] MEDS: ceFAZolin 3,000 MG in SODIUM CHLORIDE 0.9% IRRIGATIO 3,000 ML IRRIGATION ONE (19:54)
[2023-07-10] MEDS: GENTAMICIN 80 MG in SODIUM CHLORIDE 0.9% IRRIGATIO 3,000 ML IRRIGATION ONE (19:55)
[2023-07-10] MEDS: VANCOMYCIN 1,000 MG VIAL MISCELLANE ONE (20:08)
[2023-07-11] MEDS: ACETAMINOPHEN IV (For NPO) 1,000 MG in EMPTY BAG 1 BAG IVPB PRN (08:50)
--- NOTE | 2023-07-11 09:37 | P.PN ---
Subjective Progress Note Date: 07/11/23 Principal diagnosis: Status post irrigation and debridement with wound revision and closure Patient was examined today at bedside, she is resting comfortably, there is a sitter at bedside. Patient's mental status remains at her baseline, she is pleasantly confused. Patient admits to no severe pain involving the back at this time. Objective - Vital Signs Vital signs: Vital Signs Temp 97.4 F L 07/11/23 08:05 Pulse 92 07/11/23 08:05 Resp 18 07/11/23 08:05 BP 156/91 07/11/23 08:05 Pulse Ox 93 L 07/11/23 08:05 FiO2 Intake & Output 07/10/23 07/11/23 07/11/23 18:59 06:59 18:59 Intake Total 752 Output Total 2275 1825 Balance -2275 -1073 Weight 68.5 kg 68.5 kg Intake: IV 752 Output: Urine 2275 1800 Uretheral (Almendarez) 200 Estimated Blood Loss 25 Other: Voiding Method Indwelling Catheter Indwelling Catheter - Exam Postop dressing is in good position, there is foam tape with excessive padding present on the edges to help offload the skin Patient is moving all the extremities with no difficulties, there is no focal deficits present - Labs CBC & Chem 7: 07/09/23 07:19 07/09/23 07:19 Assessment and Plan Assessment: Postoperative day #1 status post irrigation and debridement thoracic spine wound with wound revision Plan: Had a long discussion with nursing today regarding patient positioning. We are trying her very best to keep patient from lying on her back to take pressure off the wound. Patient can either lay on her right or left side. Patient was adjusted to her right side while I was in the room Leave postop dressing in current position and condition, plan for dressing change on 07/12/2023 DVT prophylaxis per primary medical service Other medical specialty recommendations appreciated Will continue to follow during hospital stay Time with Patient: Less than 30
--- NOTE | 2023-07-11 13:40 | P.PN ---
Progress Note - Text Progress Note Date: 07/11/23 Interval history: Patient was seen today for psychiatric follow-up. Patient's nurse states that patient is doing better today, fairly pleasant however confused. Patient continues to have a one-to-one sitter at her side has been putting her legs over the side of the bed during the day at times and occasionally pulling at her IV lines. Patient was awake today sitting at the bedside. She had irrigation and debridement yesterday. Patient was rambling at times however was directable and attempted to answer some questions. She knew her first name only, did not know today's date or where she was. She denies any anxiety or depression at this time. She was illogical mostly during the conversation however was attempting to speak. She was able to follow some commands today, apparently she has been sleeping fairly and ate her lunch. Denying any auditory or visual elucidation's, denying any suicidal homicidal ideations intent or plan. MENTAL STATUS EXAM: General Appearance: Patient appears to be stated age, mildly Fair hygiene and grooming. Behavior: Was only confused, improving eye contact. Or directable today Speech: Speaking today, rambling, at times illogical Mood/Affect: Claims her mood is "good", affect is improving Suicidality/Homicidality: Denies Perceptions: Denies, not responding to internal stimuli Though content/process: Rambling, illogical at times, improving thought process. Attempts to answer questions Memory and concentration: Awakens, proving attention span, oriented x to her first name only Judgment and insight: Chronically limited, improving mildly IMPRESSIONS: Delirium, multifactorial (infection, anemia, s/p surgery, polypharmacy, age, possible medication side effect, pain), improving Likely underlying major neurocognitive disorder History of bipolar disorder PLAN: -At this time patient DOES NOT meet criteria for inpatient psychiatric admi ssion. -Patient DOES NOT have decision making capacity at this time and is unable to reason through and communicate/appreciate the risks, benefits and alternatives to treatment. -Delirium precautions recommended with patient including - avoiding use of narcotics and PNEUMATIC TUBE REPAIRER sedatives, limit anticholinergic medications when possible, frequent re-orientation, minimize use of restraints, open window shades during the day and close them at night. -Would recommend the following medication changes/additions: Increased Seroquel from 100 mg QAM + 400 mg QHS for mood stabilization/insomnia. zyprexa 5 mg tid prn for agitation/psychosis. Discontinued Ativan as needed as this will likely be precipitating confusion and delirium. continue Decreasing Lamictal 50 mg BID as this may be causing confusion and p ossibly neurological symptoms, will be completely titrated off Thursday. -Neurology on board, appreciate recommendations. EEG was abnormal due to background slowing of moderate degree, suggestive of encephalopathy. No epileptiform activity was seen. -At this time psychiatry will sign off -Please contact with any questions.
--- NOTE | 2023-07-11 13:57 | XR ---
EXAMINATION TYPE: XR chest 1V portable DATE OF EXAM: 07/11/2023 COMPARISON: 06/19/2023 HISTORY: CHF TECHNIQUE: Single frontal view of the chest is obtained. FINDINGS: Infiltrate in the retrocardiac region on the prior study has cleared in the interval. There is no airspace consolidation. There is mild interstitial prominence on the right which could re flect some mild pulmonary vascular congestion. The heart is normal in size for the technique. Tiny pl eural effusions cannot be excluded. No pneumothorax. There are Murguia rods in the thoracolumbar spine. There is chronic rotator cuff tear of the right shoulder. IMPRESSION: Possibly mild CHF.
--- NOTE | 2023-07-11 14:55 | PN ---
PROGRESS NOTE SUBJECTIVE: This is a 68-year-old woman, who was admitted with UTI with change in mental status. She is still mildly confused. The patient also had polypharmacy. The patient also had compression fracture of the thoracic spine. The patient also has UTI possibly secondary to indwelling Almendarez catheter. The patient was closely monitored. PAST MEDICAL HISTORY: Reviewed. REVIEW OF SYSTEMS: Could not be taken. CURRENT MEDICATIONS: Reviewed include Tylenol. Rest of medications noted. PHYSICAL EXAMINATION: VITAL SIGNS: Pulse is 92, blood pressure 156/91, and respirations 18. HEENT: Conjunctivae normal. NECK: No JVD. CARDIOVASCULAR: S1 and S2 n. ABDOMEN: Soft. NERVOUS SYSTEM: Nonfocal. LABORATORY DATA: Noted. ASSESSMENT: 1. Urinary tract infection with sepsis and change in mental status. 2. Polypharmacy. 3. Possible urinary tract infection related to Almendarez catheter. 4. Status post suspected compression fracture of the thoracic spine. 5. Postoperative fluid collection. Continue with wound VAC. 6. VRE urinary tract infection. 7. Bipolar. 8. Chronic pulmonary embolus. 9. Multiple complex medical issues. RECOMMENDATIONS: Recommend to continue current management and continue symptomatic treatment otherwise. Currently, the patient is on antifungal and antibiotics, daptomycin and Eraxis. Otherwise, we will continue to monitor. Continue rest of the medications. Supplement vitamins. See orders for details. Medications reviewed. Prognosis guarded. Further recommendations to follow. MMODL / IJN: [id number] / MTDD
[2023-07-11] MEDS: traMADol 50 MG TAB PO PRN (15:13)
--- NOTE | 2023-07-11 15:48 | P.PN ---
Subjective Progress Note Date: 07/11/23 Principal diagnosis: Reason for follow-up is UTI and abnormal CT thoracolumbar spine Patient is a 68-year-old female past medical history anxiety bipolar depression, patient recently did have extensive T10 to pelvis decompression and fusion by Dr. Sheehan 7 in March 2023 subsequently patient did have a T9 burst fracture status post T6-10 posterior stabilization with ORIF on May 15, 2023 patient did have a recent admission to the hospital concerning for possible cellulitis infection to the thoracic spine area patient is status post I&D and cultures was negative, the patient has not been brought back to the hospital concerning for mental status changes did have a abnormal CT suggestive of fluid collection possible abscess. On today's evaluation that is 07/11/2023, Patient is afebrile patient is currently on room air, the patient remains to be pleasantly confused in no respiratory distress not a very good historian no vomiting diarrhea or any other changes reported by the sitter at the bedside. No new labs has been obtained today blood culture has been negative Objective - Vital Signs Vital signs: Vital Signs Temp 97.8 F 07/11/23 12:40 Pulse 76 07/11/23 12:40 Resp 18 07/11/23 12:40 BP 167/86 07/11/23 12:40 Pulse Ox 94 L 07/11/23 12:40 FiO2 Intake & Output 07/10/23 07/11/23 07/11/23 18:59 06:59 18:59 Intake Total 752 300 Output Total 2275 1825 Balance -2275 -1073 300 Weight 68.5 kg 68.5 kg Intake: IV 752 Intake, IV Titration 300 Amount Sodium Chloride 0.9% 1, 300 000 ml @ 75 mls/hr IV . [id number] [facility] Rx#:[id number] Output: Urine 2275 1800 Uretheral (Almendarez) 200 Estimated Blood Loss 25 Other: Voiding Method Indwelling Catheter Indwelling Catheter - Exam GENERAL DESCRIPTION: An elderly female lying in bed in no distress RESPIRATORY SYSTEM: Unlabored breathing , decreased breath sounds at bases HEART: S1 S2 regular rate and rhythm , ABDOMEN: Soft , no tenderness EXTREMITIES: No edema feet - Labs CBC & Chem 7: 07/09/23 07:19 07/09/23 07:19 Assessment and Plan (1) Surgical site infection Current Visit: Yes Status: Acute Code(s): T81.49XA - INFECTION FOLLOWING A PROCEDURE, OTHER SURGICAL SITE, INIT SNOMED Code(s): 27725549 (2) UTI (urinary tract infection) Current Visit: Yes Status: Acute Code(s): N39.0 - URINARY TRACT INFECTION, SITE NOT SPECIFIED SNOMED Code(s): 28040302 Plan: 1patient presented to hospital with mental status changes which is likely multifactorial patient recently did have multiple surgeries to the thoracolumbar spine area and the patient noticed to have abnormal CT with a small fluid collection concerning for possible postop seroma versus abscess patient already fever white count is normal abscess less likely not excluded also have a posit osmin UA concerning for possible component of symptomatic UTI 2-patient did have elevated CRP sed rate is normal at 13, urine is growing VRE and yeast 3-patient remains to be afebrile white count is normal however mentation remains to be an issue MRI was negative for any acute changes neurology is following the patient as well as psychiatry 4-patient to continue with daptomycin along with Eraxis, PT for possible surgical intervention to the thoracic spine by spine surgery Dictation was produced using [employer] dictation software. please excuse any grammatical, word or spelling errors. Time with Patient: Less than 30
[2023-07-11] MEDS: RIVAROXABAN 20 MG TAB PO SCH (17:07)
[2023-07-11] MEDS: lamoTRIgine 25 MG TAB PO SCH (20:12)
--- NOTE | 2023-07-11 23:25 | P.PN ---
Subjective Progress Note Date: 07/08/23 * 68-year-old patient with past medical history significant for degenerative disease of spine recent spine surgery, history of pulm embolism, bipolar disorder, hypertension, presents to the emergency department from [facility] with complaints of altered mental status and a fall. Patient had an unwitnessed fall at the facility. Patient has been on Xarelto and had a CT head done which was negative for acute intracranial process. CT cervical spine does show degenerative changes Some bulking of T2 vertebral body noted concern for superior endplate deformity. CT thoracic spine was reviewed which showed small localizing fluid collection in the upper back concern for abscess. Multilevel degenerative changes were noted. * Blood work obtained in ER showed CBC with WBC count of 10.5, hemoglobin 8.1 platelet count of 431, INR of 1.8. Serum chemistry 132 potassium 4.4, dioxide 26 BUN 8 creatinine 0.24 calcium of 8 * Urinalysis obtained did show large amount of leukocyte esterase WBC bacteria noted * Patient tested negative for influenza COVID and RSV * ER patient continued to have altered mentation for which patient was given a dose of Narcan with some improvement * Patient admitted to medical floor with consultation from orthospine as well as infectious disease 07/06/23 Patient is in the telemetry unit. Awake alert but seems to be agitated and trying to get out of bed. No complaints of chest pain or shortness of breath. Patient does have underlying memory issues. Afebrile. No cough or sputum production. Continued on Prevena wound VAC to the thoracic incision Urine culture showed Enterococcus species final culture report pending. Patient is on vancomycin. ID is on board. Laboratory data showed WBC 5.3 hemoglobin 8.4 and platelets 453 Sodium 133 potassium 3.9 chloride 106 bicarb is 22 BUN 5 and creatinine 0.23 and calcium 7.9. CRP was 18.6. ID and orthopedic surgery is on board. 07/07/2023 Patient is drowsy and sleeping most of the time this morning. Denied complaints of chest pain or shortness of breath. Patient has been afebrile. No nausea or vomiting. Patient is also on IV hydration with normal saline. Otherwise urine culture showed VRE and Hali. Patient is being continued on micafungin and vancomycin changed to daptomycin as per ID recommendations. Wound VAC is in place for thoracic incision.. Laboratory data showed WBC 4.7 hemoglobin 8.6 and platelets 434 Sodium 135 potassium 3.5 chloride 108 bicarb is 21 BUN 4 and creatinine 0.27 and blood sugar 76 and calcium 7.9. Await MRI of the brain to rule out any acute or subacute stroke, not seen on the CT. EEG was abnormal due to background slowing of moderate degree, suggestive of encephalopathy. No epileptiform activity was seen. 07/08/2023 Patient continues to be confused and delirious. Bedside sitter in place.She is awake alert but not oriented. Patient has been afebrile. Continued on antibiotics for UTI. Patient is also wound VAC. Laboratory data showed WBC 5.7 hemoglobin 7.6 and platelets 373 Sodium 135 potassium 3.4 chloride 109 bicarb is 22 BUN 3 and creatinine 0.23 and blood sugar 77 ID and neurology is on board. Current medications reviewed. REVIEW OF SYSTEMS: Limited secondary to altered mentation PHYSICAL EXAMINATION: GENERAL: The patient is alert and oriented x 0 , HEENT: Pupils are round and equally reacting to light. EOMI. CARDIOVASCULAR: S1 and S2 present. No murmurs, rubs, or gallops. PULMONARY: Chest is clear to auscultation, no wheezing or crackles. ABDOMEN: Soft, nontender, nondistended, normoactive bowel sounds. No palpable organomegaly. MUSCULOSKELETAL: No joint swelling or deformity. EXTREMITIES: No cyanosis, clubbing, or pedal edema. NEUROLOGICAL: Disoriented SKIN: Surgical wound wound VAC in place Assessment and plan * Acute toxic metabolic encephalopathy * Polypharmacy * S/p fall suspect compression fracture of thoracic spine * Postoperative fluid collection rule out abscess. Continue with wound VAC to thoracic incision.. * VRE urinary tract infection * History of bipolar disorder * Chronic pulmonary embolism * Hypothyroid * Essential hypertension * In regards to acute metabolic encephalopathy, CT head negative for acute intracranial process, patient on multiple medications contributing to encephalopathy including narcotics, benzodiazepines Seroquel. Continue treatment for urinary tract infection and monitor for improvement patient was recently hospitalized and discharged on 06/26/2023 during that hospitalization patient had delirium as well * In regards to fall patient will need physical therapy Occupational Therapy evaluation maintain fall precautions * In regards to postoperative fluid collection, infectious disease and orthospine consulted to evaluate seroma versus abscess. Continue with Prevena wound VAC to the thoracic incision * In regards to urinary tract infection follow-up on blood cultures and urine cultures. Antibiotic changed to daptomycin due to VRE and continue with micafungin. * Regards to history of bipolar disorder continue patient on Lamictal and Seroquel * In regards to pulmonary embolism continue patient on Lovenox therapeutic dosing, Xarelto on hold in anticipation of surgical intervention * In regards to hypertension continue Coreg. CODE STATUS is full code Objective - Vital Signs Vital signs: Vital Signs Temp 97.9 F 07/08/23 16:54 Pulse 88 07/08/23 16:54 Resp 16 07/08/23 16:54 BP 130/88 07/08/23 16:54 Pulse Ox 96 07/08/23 16:54 FiO2 Intake & Output 07/08/23 07/08/23 07/09/23 06:59 18:59 06:59 Intake Total 110 118 Output Total 1125 1100 675 Balance -1015 -982 -675 Intake: IV 10 Invasive Line 3 10 Oral 100 118 Output: Urine 1125 1100 675 Other: Voiding Method Indwelling Catheter Indwelling Catheter - Labs CBC & Chem 7: 07/09/23 07:19 07/09/23 07:19 Labs: Abnormal Lab Results - Last 24 Hours (Table) 07/08/23 07/08/23 Range/Units 06:14 06:14 RBC 2.61 L (3.80-5.40) m/uL Hgb 7.6 L (11.4-16.0) gm/dL Hct 25.4 L (34.0-46.0) % MCHC 30.1 L (31.0-37.0) g/dL RDW 16.5 H (11.5-15.5) % Lymphocytes # 0.5 L (1.0-4.8) k/uL Sodium 135 L (137-145) mmol/L Potassium 3.4 L (3.5-5.1) mmol/L Chloride 109 H (98-107) mmol/L BUN 3 L (7-17) mg/dL Creatinine 0.23 L (0.52-1.04) mg/dL Calcium 7.8 L (8.4-10.2) mg/dL Microbiology - Last 24 Hours (Table) 07/04/23 19:44 Urine Culture - Final Urine,Voided Enterococcus faecium VRE Hali albicans 07/04/23 19:30 Blood Culture - Preliminary Blood 07/04/23 19:15 Blood Culture - Preliminary Blood
--- NOTE | 2023-07-11 23:29 | P.PN ---
Subjective Progress Note Date: 07/09/23 * 68-year-old patient with past medical history significant for degenerative disease of spine recent spine surgery, history of pulm embolism, bipolar disorder, hypertension, presents to the emergency department from [facility] with complaints of altered mental status and a fall. Patient had an unwitnessed fall at the facility. Patient has been on Xarelto and had a CT head done which was negative for acute intracranial process. CT cervical spine does show degenerative changes Some bulking of T2 vertebral body noted concern for superior endplate deformity. CT thoracic spine was reviewed which showed small localizing fluid collection in the upper back concern for abscess. Multilevel degenerative changes were noted. * Blood work obtained in ER showed CBC with WBC count of 10.5, hemoglobin 8.1 platelet count of 431, INR of 1.8. Serum chemistry 132 potassium 4.4, dioxide 26 BUN 8 creatinine 0.24 calcium of 8 * Urinalysis obtained did show large amount of leukocyte esterase WBC bacteria noted * Patient tested negative for influenza COVID and RSV * ER patient continued to have altered mentation for which patient was given a dose of Narcan with some improvement * Patient admitted to medical floor with consultation from orthospine as well as infectious disease 07/06/23 Patient is in the telemetry unit. Awake alert but seems to be agitated and trying to get out of bed. No complaints of chest pain or shortness of breath. Patient does have underlying memory issues. Afebrile. No cough or sputum production. Continued on Prevena wound VAC to the thoracic incision Urine culture showed Enterococcus species final culture report pending. Patient is on vancomycin. ID is on board. Laboratory data showed WBC 5.3 hemoglobin 8.4 and platelets 453 Sodium 133 potassium 3.9 chloride 106 bicarb is 22 BUN 5 and creatinine 0.23 and calcium 7.9. CRP was 18.6. ID and orthopedic surgery is on board. 07/07/2023 Patient is drowsy and sleeping most of the time this morning. Denied complaints of chest pain or shortness of breath. Patient has been afebrile. No nausea or vomiting. Patient is also on IV hydration with normal saline. Otherwise urine culture showed VRE and Hali. Patient is being continued on micafungin and vancomycin changed to daptomycin as per ID recommendations. Wound VAC is in place for thoracic incision.. Laboratory data showed WBC 4.7 hemoglobin 8.6 and platelets 434 Sodium 135 potassium 3.5 chloride 108 bicarb is 21 BUN 4 and creatinine 0.27 and blood sugar 76 and calcium 7.9. Await MRI of the brain to rule out any acute or subacute stroke, not seen on the CT. EEG was abnormal due to background slowing of moderate degree, suggestive of encephalopathy. No epileptiform activity was seen. 07/08/2023 Patient continues to be confused and delirious. Bedside sitter in place.She is awake alert but not oriented. Patient has been afebrile. Continued on antibiotics for UTI. Patient is also wound VAC. Laboratory data showed WBC 5.7 hemoglobin 7.6 and platelets 373 Sodium 135 potassium 3.4 chloride 109 bicarb is 22 BUN 3 and creatinine 0.23 and blood sugar 77 ID and neurology is on board. 07/09/2023 Patient is resting in the bed. Still confused. Neurological workup including MRI is negative. Neurology consult psychiatry evaluation. Patient was started Zyprexa 5 mg 3 times daily as needed for agitation/psychosis and continue with Seroquel and decrease dose of Lamictal 200 twice daily and recommend to taper down gradually. EEG was abnormal due to background slowing of moderate degree suggestive of encephalopathy. No crypto activity was seen. Patient is being continued on IV antibiotics patient is also on wound VAC. Anticoagulation is on hold for possible surgical intervention by orthopedic surgery. Current medications reviewed. REVIEW OF SYSTEMS: Limited secondary to altered mentation PHYSICAL EXAMINATION: GENERAL: The patient is alert and oriented x 0 , HEENT: Pupils are round and equally reacting to light. EOMI. CARDIOVASCULAR: S1 and S2 present. No murmurs, rubs, or gallops. PULMONARY: Chest is clear to auscultation, no wheezing or crackles. ABDOMEN: Soft, nontender, nondistended, normoactive bowel sounds. No palpable organomegaly. MUSCULOSKELETAL: No joint swelling or deformity. EXTREMITIES: No cyanosis, clubbing, or pedal edema. NEUROLOGICAL: Disoriented SKIN: Surgical wound wound VAC in place Assessment and plan * Acute toxic metabolic encephalopathy/acute delirium * Polypharmacy * S/p fall suspect compression fracture of thoracic spine * Postoperative fluid collection rule out abscess. Continue with wound VAC to thoracic incision.. * VRE urinary tract infection * History of bipolar disorder * Chronic pulmonary embolism * Hypothyroid * Essential hypertension * In regards to acute metabolic encephalopathy, CT head negative for acute intracranial process, patient on multiple medications contributing to encephalopathy including narcotics, benzodiazepines Seroquel. Continue treatment for urinary tract infection and monitor for improvement patient was recently hospitalized and discharged on 06/26/2023 during that hospitalization patient had delirium as well * In regards to fall patient will need physical therapy Occupational Therapy evaluation maintain fall precautions * In regards to postoperative fluid collection, infectious disease and orthospine consulted to evaluate seroma versus abscess. Continue with Prevena wound VAC to the thoracic incision * In regards to urinary tract infection follow-up on blood cultures and urine cultures. Antibiotic changed to daptomycin due to VRE and continue with micafungin. * Regards to history of bipolar disorder continue patient on Lamictal and Seroquel. Patient was started on Zyprexa as needed for agitation and gradually taper down Lamictal. * In regards to pulmonary embolism continue patient on Lovenox therapeutic dosing, Xarelto on hold in anticipation of surgical intervention * In regards to hypertension continue Coreg. CODE STATUS is full code Objective - Vital Signs Vital signs: Vital Signs Temp 97.8 F 07/09/23 08:34 Pulse 96 07/09/23 11:51 Resp 16 07/09/23 11:51 BP 155/90 07/09/23 11:51 Pulse Ox 95 07/09/23 11:51 FiO2 Intake & Output 07/08/23 07/09/23 07/09/23 18:59 06:59 18:59 Intake Total 118 10 220 Output Total 1100 1075 Balance -982 -1065 220 Intake: IV 10 Invasive Line 3 10 Oral 118 220 Output: Urine 1100 1075 Other: Voiding Method Indwelling Catheter Indwelling Catheter Indwelling Catheter - Labs CBC & Chem 7: 07/09/23 07:19 07/09/23 07:19 Labs: Abnormal Lab Results - Last 24 Hours (Table) 07/09/23 07/09/23 Range/Units 07:19 07:19 RBC 2.99 L (3.80-5.40) m/uL Hgb 8.7 L (11.4-16.0) gm/dL Hct 29.4 L (34.0-46.0) % MCHC 29.6 L (31.0-37.0) g/dL RDW 16.7 H (11.5-15.5) % Lymphocytes # 0.7 L (1.0-4.8) k/uL Chloride 111 H (98-107) mmol/L Carbon Dioxide 21 L (22-30) mmol/L BUN 3 L (7-17) mg/dL Creatinine 0.28 L (0.52-1.04) mg/dL Glucose 70 L (74-99) mg/dL Calcium 8.2 L (8.4-10.2) mg/dL Microbiology - Last 24 Hours (Table) 07/04/23 19:44 Urine Culture - Final Urine,Voided Enterococcus faecium VRE Hali albicans
[2023-07-12 08:26] LABS: Anisocytosis Slight; Basophils % (A) 1 %; Eosinophils # (A) 0.1 k/uL (0-0.7); Eosinophils % (A) 2 %; HCT 31.1 % (34.0-46.0); HGB 9.3 gm/dL (11.4-16.0); Hypochromasia Marked; Lymphocytes # (A) 0.6 k/uL (1.0-4.8); Lymphocytes % (A) 8 %; MCH 29.3 pg (25.0-35.0); MCV 97.8 fL (80.0-100.0); Macrocytosis Slight; Mean Platelet Volume 8.5; Monocytes # (A) 0.5 k/uL (0-1.0); Monocytes % (A) 7 %; Neutrophils # (A) 6.2 k/uL (1.3-7.7); Neutrophils % (A) 82 %; Platelet Count 381 k/uL (150-450); RBC 3.18 m/uL (3.80-5.40); RDW 17.4 % (11.5-15.5); WBC 7.6 k/uL (3.8-10.6)
[2023-07-12 08:31] LABS: ALT 14 U/L (4-34); AST 25 U/L (14-36); African American GFR (CKD) >90 (>60 ml/min/1.73 sqM); Albumin 2.3 g/dL (3.5-5.0); Albumin/Globulin Ratio 0.8; Alkaline Phosphatase 331 U/L (38-126); Anion Gap 8 mmol/L; Blood Urea Nitrogen 4 mg/dL (7-17); Calcium 8.6 mg/dL (8.4-10.2); Carbon Dioxide 18 mmol/L (22-30); Chloride 110 mmol/L (98-107); Globulin 2.8 g/dL; Glucose 87 mg/dL (74-99); Non-African American GFR(CKD) >90 (>60 ml/min/1.73 sqM); Potassium 3.5 mmol/L (3.5-5.1); Sodium 136 mmol/L (137-145); Total Bilirubin 0.6 mg/dL (0.2-1.3); Total Protein 5.1 g/dL (6.3-8.2)
[2023-07-12] MEDS: QUEtiapine 100 MG TAB PO SCH (08:57)
--- NOTE | 2023-07-12 10:52 | P.PN ---
Subjective Progress Note Date: 07/12/23 Principal diagnosis: Status post irrigation and debridement with wound revision and closure Patient was examined today at bedside, she is resting comfortably, there is a sitter at bedside. Patient's mental status remains at her baseline, she is pleasantly confused. Patient admits to no severe pain involving the back at this time. Objective - Vital Signs Vital signs: Vital Signs Temp 97.9 F 07/12/23 07:28 Pulse 91 07/12/23 07:28 Resp 16 07/12/23 07:28 BP 165/93 07/12/23 07:28 Pulse Ox 95 07/12/23 07:28 FiO2 Intake & Output 07/11/23 07/12/23 07/12/23 18:59 06:59 18:59 Intake Total 420 1150 Balance 420 1150 Weight 52 kg Intake: Intake, IV Titration 300 900 Amount Sodium Chloride 0.9% 1, 300 900 000 ml @ 75 mls/hr IV . [id number] [facility] Rx#:[id number] Oral 120 250 Other: Voiding Method Diaper Diaper # Voids 1 - Exam Postop dressing was removed today at bedside, nylon sutures are all in good position and condition. There was serosanguineous drainage noted on the bandage, no active drainage visualized. Patient is moving all the extremities with no difficulties, there is no focal deficits present - Labs CBC & Chem 7: 07/12/23 06:45 07/12/23 06:45 Labs: Abnormal Lab Results - Last 24 Hours (Table) 07/12/23 07/12/23 Range/Units 06:45 06:45 RBC 3.18 L (3.80-5.40) m/uL Hgb 9.3 L (11.4-16.0) gm/dL Hct 31.1 L (34.0-46.0) % MCHC 30.0 L (31.0-37.0) g/dL RDW 17.4 H (11.5-15.5) % Lymphocytes # 0.6 L (1.0-4.8) k/uL Sodium 136 L (137-145) mmol/L Chloride 110 H (98-107) mmol/L Carbon Dioxide 18 L (22-30) mmol/L BUN 4 L (7-17) mg/dL Creatinine 0.24 L (0.52-1.04) mg/dL Alkaline Phosphatase 331 H (38-126) U/L Total Protein 5.1 L (6.3-8.2) g/dL Albumin 2.3 L (3.5-5.0) g/dL Microbiology - Last 24 Hours (Table) 07/10/23 19:55 Gram Stain - Preliminary Back Wound Culture - Preliminary Hali albicans 07/10/23 19:55 Gram Stain - Preliminary Back Wound Culture - Preliminary Assessment and Plan Assessment: Postoperative day #2 status post irrigation and debridement thoracic spine wound with wound revision Plan: Continue to try to offload incision as best as possible, a new dressing was placed today at bedside. A large amount of ABDs was placed to try to help pad the area. Patient was adjusted to her right side while I was in the room Culture is preliminary showing hali species, infectious disease recommendations appreciated DVT prophylaxis per primary medical service Other medical specialty recommendations appreciated Will continue to follow during hospital stay Time with Patient: Less than 30
[2023-07-12] MEDS: FOLIC ACID 1 MG TAB PO SCH (12:10)
[2023-07-12] MEDS: MULTIVITAMINS, THERA 1 EACH TAB PO SCH (12:10)
[2023-07-12] MEDS: FUROSEMIDE 10 MG/ML 2 ML VIAL IV ONE (13:18)
--- NOTE | 2023-07-12 16:53 | P.PN ---
Subjective Progress Note Date: 07/12/23 Principal diagnosis: Reason for follow-up is UTI and abnormal CT thoracolumbar spine Patient is a 68-year-old female past medical history anxiety bipolar depression, patient recently did have extensive T10 to pelvis decompression and fusion by Dr. Sheehan 7 in March 2023 subsequently patient did have a T9 burst fracture status post T6-10 posterior stabilization with ORIF on May 15, 2023 patient did have a recent admission to the hospital concerning for possible cellulitis infection to the thoracic spine area patient is status post I&D and cultures was negative, the patient has not been brought back to the hospital concerning for mental status changes did have a abnormal CT suggestive of fluid collection possible abscess. On today's evaluation that is 07/12/2023, patient has been afebrile, patient is breathing comfortably and is currently on room air, patient remains to be pleasantly confused unable to provide any history reliable no diarrhea or any other changes reported by the sitter at the bedside. Patient white count is 7.6, creatinine 0.24 Objective - Vital Signs Vital signs: Vital Signs Temp 98.3 F 07/12/23 12:11 Pulse 76 07/12/23 12:11 Resp 16 07/12/23 12:11 BP 163/89 07/12/23 12:11 Pulse Ox 95 07/12/23 12:11 FiO2 Intake & Output 07/11/23 07/12/23 07/12/23 18:59 06:59 18:59 Intake Total 420 1150 Balance 420 1150 Weight 52 kg Intake: Intake, IV Titration 300 900 Amount Sodium Chloride 0.9% 1, 300 900 000 ml @ 75 mls/hr IV . [id number] [facility] Rx#:[id number] Oral 120 250 Other: Voiding Method Diaper Diaper # Voids 1 3 - Exam GENERAL DESCRIPTION: An elderly female lying in bed in no distress RESPIRATORY SYSTEM: Unlabored breathing , decreased breath sounds at bases HEART: S1 S2 regular rate and rhythm , ABDOMEN: Soft , no tenderness EXTREMITIES: No edema feet - Labs CBC & Chem 7: 07/12/23 06:45 07/12/23 06:45 Labs: Abnormal Lab Results - Last 24 Hours (Table) 07/12/23 07/12/23 Range/Units 06:45 06:45 RBC 3.18 L (3.80-5.40) m/uL Hgb 9.3 L (11.4-16.0) gm/dL Hct 31.1 L (34.0-46.0) % MCHC 30.0 L (31.0-37.0) g/dL RDW 17.4 H (11.5-15.5) % Lymphocytes # 0.6 L (1.0-4.8) k/uL Sodium 136 L (137-145) mmol/L Chloride 110 H (98-107) mmol/L Carbon Dioxide 18 L (22-30) mmol/L BUN 4 L (7-17) mg/dL Creatinine 0.24 L (0.52-1.04) mg/dL Alkaline Phosphatase 331 H (38-126) U/L Total Protein 5.1 L (6.3-8.2) g/dL Albumin 2.3 L (3.5-5.0) g/dL Microbiology - Last 24 Hours (Table) 07/10/23 19:55 Gram Stain - Preliminary Back Wound Culture - Preliminary Hali albicans 07/10/23 19:55 Gram Stain - Preliminary Back Wound Culture - Preliminary Assessment and Plan (1) Surgical site infection Current Visit: Yes Status: Acute Code(s): T81.49XA - INFECTION FOLLOWING A PROCEDURE, OTHER SURGICAL SITE, INIT SNOMED Code(s): 13035446 (2) UTI (urinary tract infection) Current Visit: Yes Status: Acute Code(s): N39.0 - URINARY TRACT INFECTION, SITE NOT SPECIFIED SNOMED Code(s): 22937929 Plan: 1patient presented to hospital with mental status changes which is likely multifactorial patient recently did have multiple surgeries to the thoracolumbar spine area and the patient noticed to have abnormal CT with a small fluid collection concerning for possible postop seroma versus abscess patient already fever white count is normal abscess less likely not excluded also have a positive UA concerning for possible component of symptomatic UTI 2-patient did have elevated CRP sed rate is normal at 13, urine is growing VRE and yeast 3-patient remains to be afebrile white count is normal however mentation remains to be an issue MRI was negative for any acute changes neurology is following the patient as well as psychiatry 4-patient to continue with current treatment of daptomycin along with Eraxis, and await further recommendation from spine surgery regarding the fluid collection Dictation was produced using dragon dictation software. please excuse any grammatical, word or spelling errors. Time with Patient: Less than 30
--- NOTE | 2023-07-12 17:01 | PN ---
PROGRESS NOTE DATE OF SERVICE: 07/12/2023 SUBJECTIVE: This 68-year-old woman, who was admitted with multiple complex medical issues including UTI, remains to be confused at this time. No chest pain. No palpitation. The urine culture showed VRE and Hali albicans. Wound culture also showed Hali albicans. Multiple CURRENT MEDICATIONS: Reviewed, include also reviewed. PHYSICAL EXAMINATION: VITAL SIGNS: Pulse is 91, blood pressure 161/93, respirations 16. CHEST: Few scattered rhonchi, otherwise, clear to auscultation. ABDOMEN: Soft. NERVOUS SYSTEM: Diffusely weak. LABORATORY DATA: Hemoglobin 9.3. Sodium 136. LFTs are noted. ASSESSMENT: 1. Urinary tract infection with sepsis with change in mental status, present on admission. 2. Polypharmacy. 3. Possible acute urinary tract infection related to Almendarez catheter. 4. Status post suspected compression fracture of the thoracic spine. 5. Postoperative fluid collection, continue with wound VAC. 6. Vancomycin-resistant enterococcus with urinary tract infection. 7. Bipolar. 8. Recent pulmonary embolism. 9. Multiple complex medical issues. RECOMMENDATIONS: Recommend to continue current management. Continue symptomatic treatment. Repeat labs. Otherwise, continue with anticoagulation. Closely follow with multiple consultants. PT/OT evaluation, possible ECF rehab. Continue the antibiotics. Prognosis extremely guarded because of multiple complex medical issues and further recommendations. See orders for details. The chest x-ray was reviewed personally, showed some possibly mild CHF. We will cut down the IV fluids at this time. MMODL / IJN: [id number] / GURVINDER
--- NOTE | 2023-07-13 09:59 | P.PN ---
Subjective Progress Note Date: 07/13/23 Principal diagnosis: Postop abscess Patient seen at bedside this morning lying in semirecumbent position. ABDs and foam tape present over spine. Patient is lethargic and confused throughout the encounter. History is difficult to obtain due to patient's mental state. Objective - Vital Signs Vital signs: Vital Signs Temp 97.2 F L 07/13/23 07:46 Pulse 95 07/13/23 07:46 Resp 17 07/13/23 07:46 BP 134/73 07/13/23 07:46 Pulse Ox 95 07/13/23 07:46 FiO2 Intake & Output 07/12/23 07/13/23 07/13/23 18:59 06:59 18:59 Weight 65 kg Other: Voiding Method Diaper Diaper # Voids 3 2 - Exam Abds, foam tape present over spine. Negative for any active drainage. Dressing appears to be holding well at this time. Negative for any drainage. Negative for any ecchymosis or erythema. Sensation is equal, symmetric, bilaterally inta ct of the upper and lower extremities. Patient does have good range of motion throughout bilateral upper and lower extremities on exam. There is some generalized tenderness to patient's surrounding incision on spine. Nontender to palpation throughout rest exam. Motor exam grossly intact. Neurovascular status intact. Radial pulse intact, 2+ bilaterally. Cap refill under 3 seconds in digits of the upper extremities. Negative Homans bilaterally. Negative Chucky bilaterally. Negative clonus bilaterally. - Labs CBC & Chem 7: 07/12/23 06:45 07/12/23 06:45 Labs: Microbiology - Last 24 Hours (Table) 07/10/23 19:55 Gram Stain - Final Back Wound Culture - Final 07/10/23 19:55 Gram Stain - Preliminary Back Wound Culture - Preliminary Hali albicans Assessment and Plan Assessment: Previous Revision T6T10 posterior stabilization with ORIF at T9 Previous [id number] decompression and fusion Delayed wound healing Multiple complex comorbidities - Postoperative day 3 status post irrigation and debridement thoracic spine wound with wound revision Plan: 1. Previous Revision T6T10 posterior stabilization with ORIF at T9; Previous [id number] decompression and fusion; Delayed wound healing; Multiple complex comorbidities - dressing over spine holding well. incision appears to be clean, dry intact. Plan to turn every 2 hours take pressure off spine. Assess dressing daily. Work with therapy daily. Weightbearing as tolerated with walker and assistance. Ortho will continue to follow. 2. Appreciate medical management 3. Pain management - Tylenol; tramadol 4. GI prophylaxis recs 5. DVT prophylaxis - xarelto 6. PT/OT - weightbearing as tolerable walker and assistance 7. Encourage incentive spirometer use Time with Patient: Less than 30
[2023-07-13] MEDS ORDERED: ZINC OXIDE PASTE (Z-GUARD) 1 APPLIC TOPICAL PRN (12:28)
--- NOTE | 2023-07-13 15:07 | P.PN ---
Subjective Progress Note Date: 07/13/23 68-year-old patient with past medical history significant for degenerative disease of spine recent spine surgery, history of pulm embolism, bipolar disorder, hypertension, presents to the emergency department from [facility] with complaints of altered mental status and a fall. Patient had an unwitnessed fall at the facility. Patient has been on Xarelto and had a CT head done which was negative for acute intracranial process. CT cervical spine does show degenerative changes Some bulking of T2 vertebral body noted concern for superior endplate deformity. CT thoracic spine was reviewed which showed small localizing fluid collection in the upper back concern for abscess. Multilevel degenerative changes were noted. * Blood work obtained in ER showed CBC with WBC count of 10.5, hemoglobin 8.1 platelet count of 431, INR of 1.8. Serum chemistry 132 potassium 4.4, dioxide 26 BUN 8 creatinine 0.24 calcium of 8 * Urinalysis obtained did show large amount of leukocyte esterase WBC bacteria noted * Patient tested negative for influenza COVID and RSV * ER patient continued to have altered mentation for which patient was given a dose of Narcan with some improvement * Patient admitted to medical floor with consultation from orthospine as well as infectious disease 07/06/23 Patient is in the telemetry unit. Awake alert but seems to be agitated and trying to get out of bed. No complaints of chest pain or shortness of breath. Patient does have underlying memory issues. Afebrile. No cough or sputum production. Continued on Prevena wound VAC to the thoracic incision Urine culture showed Enterococcus species final culture report pending. Patient is on vancomycin. ID is on board. Laboratory data showed WBC 5.3 hemoglobin 8.4 and platelets 453 Sodium 133 potassium 3.9 chloride 106 bicarb is 22 BUN 5 and creatinine 0.23 and calcium 7.9. CRP was 18.6. ID and orthopedic surgery is on board. 07/07/2023 Patient is drowsy and sleeping most of the time this morning. Denied complaints of chest pain or shortness of breath. Patient has been afebrile. No nausea or vomiting. Patient is also on IV hydration with normal saline. Otherwise urine culture showed VRE and Hali. Patient is being continued on micafungin and vancomycin changed to daptomycin as per ID recommendations. Wound VAC is in place for thoracic incision.. Laboratory data showed WBC 4.7 hemoglobin 8.6 and platelets 434 Sodium 135 potassium 3.5 chloride 108 bicarb is 21 BUN 4 and creatinine 0.27 and blood sugar 76 and calcium 7.9. Await MRI of the brain to rule out any acute or subacute stroke, not seen on the CT. EEG was abnormal due to background slowing of moderate degree, suggestive of encephalopathy. No epileptiform activity was seen. 07/10/2023 Patient is seen and evaluated in follow-up today continues on antibiotics with infectious disease following. Urine cultures showing Enterococcus with VRE. Multiple medical consultations following including orthopedics with plans on washout and revision of the recent surgery and patient is currently NPO. Patient continues with delirium which is multifactorial and recommend to limit narcotic and APRON TRIMMER agents. Will add IV Tylenol as patient is moaning at times although does not significantly report pain. Await Ortho report. Patient continues with consumer safety inspector at bedside. 07/13/2023 Patient is seen and evaluated this morning continues to have confusion although appears more alert today. Being continued on antibiotics with infectious disease following for urinary tract infection with Enterococcus VRE. Patient also is status post revision with orthopedics of recent back surgery and wound culture showing Hali albicans. Patient is continued on antifungals and will discuss further with orthopedics along with infectious disease regarding d ischarge planning. Patient will be returning to [facility] once cleared by consultations. Patient is afebrile with no reported chest pain or shortness of breath. Patient has been tolerating diet and would recommend aspiration precautions and supervision with meals. Current medications reviewed. Active Medications Acetaminophen (Acetaminophen Tab 500 Mg Tab) 1,000 mg PO Q6HR PRN PRN Reason: Pain Control Last Admin: 07/13/23 07:16 Dose: 1,000 mg Buspirone HCl (Buspirone Hcl 10 Mg Tab) 10 mg PO TID [facility] Last Admin: 07/13/23 07:15 Dose: 10 mg Carvedilol (Carvedilol 6.25 Mg Tab) 6.25 mg PO BID-W/MEALS [facility] Last Admin: 07/13/23 07:16 Dose: 6.25 mg Folic Acid (Folic Acid 1 Mg Tab) 1 mg PO DAILY@1200 [facility] Last Admin: 07/13/23 12:10 Dose: 1 mg Sodium Chloride (Saline 0.9%) 1,000 mls @ 20 mls/hr IV .Q24H [facility] Last Admin: 07/12/23 17:33 Dose: Not Given Daptomycin 200 mg/ Sodium (Chloride) 50 mls @ 100 mls/hr IVPB Q24H [facility]; Protocol Last Admin: 07/12/23 17:03 Dose: 100 mls/hr Anidulafungin 100 mg/ Sodium (Chloride) 100 mls @ 84 mls/hr IVPB DAILY@1500 [facility]; Protocol Last Admin: 07/12/23 15:30 Dose: 84 mls/hr Levothyroxine Sodium (Levothyroxine 25 Mcg Tab) 25 mcg PO DAILY@0630 [facility] Last Admin: 07/13/23 06:12 Dose: 25 mcg Multivitamins (Multivitamins, Thera 1 Each Tab) 1 each PO DAILY@1200 [facility] Last Admin: 07/13/23 12:10 Dose: 1 each Naloxone HCl (Naloxone 0.4 Mg/Ml 1 Ml Vial) 0.2 mg IV Q2M PRN PRN Reason: Opioid Reversal Non-Formulary Medication (Linaclotide [Linzess]) 145 mcg PO DAILY PRN PRN Reason: Constipation Olanzapine (Olanzapine 5 Mg Tab) 5 mg PO TID PRN PRN Reason: Agitation or Acute Psychosis Last Admin: 07/09/23 15:36 Dose: 5 mg Ondansetron HCl (Ondansetron 4 Mg/2 Ml Vial) 4 mg IVP Q8HR PRN PRN Reason: Nausea And Vomiting Last Admin: 07/08/23 19:49 Dose: 4 mg Petrolatum (Zinc Oxide Paste (Z-Guard) 1 Applic) 1 applic TOPICAL BID PRN; Protocol PRN Reason: Wound Healing Quetiapine Fumarate (Quetiapine 400 Mg Tab) 400 mg PO HS [facility] Last Admin: 07/12/23 20:21 Dose: 400 mg Quetiapine Fumarate (Quetiapine 100 Mg Tab) 100 mg PO DAILY [facility] Last Admin: 07/13/23 07:16 Dose: 100 mg Rivaroxaban (Rivaroxaban 20 Mg Tab) 20 mg PO W/SUPPER [facility]; Protocol Last Admin: 07/12/23 17:04 Dose: 20 mg Sodium Chloride (Sodium Chloride Tab 1 Gm Tab) 1 gm PO BID [facility] Last Admin: 07/13/23 07:16 Dose: 1 gm Thiamine HCl (Thiamine 100 Mg Tab) 100 mg PO DAILY [facility] Last Admin: 07/13/23 07:16 Dose: 100 mg Tramadol HCl (Tramadol 50 Mg Tab) 50 mg PO QID PRN PRN Reason: Pain Last Admin: 07/12/23 20:21 Dose: 50 mg REVIEW OF SYSTEMS: Limited secondary to altered mentation PHYSICAL EXAMINATION: GENERAL: The patient is alert and oriented x 0-1 , well-developed, elderly appearing, ill-appearing HEENT: Pupils are round and equally reacting to light. EOMI. CARDIOVASCULAR: S1 and S2 muffled PULMONARY: Chest is clear to auscultation, no wheezing or crackles. ABDOMEN: Soft, nontender, nondistended, normoactive bowel sounds. No palpable organomegaly. MUSCULOSKELETAL: No joint swelling or deformity. EXTREMITIES: No cyanosis, clubbing, or pedal edema. NEUROLOGICAL: Disoriented SKIN: Surgical wound VAC in place Assessment: * Acute toxic metabolic encephalopathy, multifactorial likely secondary to polypharmacy, infection, UTI * Sepsis, present on admission secondary to urinary tract infection * Polypharmacy * S/p fall suspect compression fracture of thoracic spine * Postoperative fluid collection with concerns of abscess. Continue with wound VAC to thoracic incision.. * VRE urinary tract infection related to indwelling Almendarez catheter * History of bipolar disorder * Chronic pulmonary embolism * Hypothyroid * Essential hypertension * GI prophylaxis DVT prophylaxis Full code Plan: * In regards to acute metabolic encephalopathy, CT head negative for acute intracranial process, patient on multiple medications contributing to encephalopathy including narcotics, benzodiazepines Seroquel. Continue treatment for urinary tract infection with infectious disease following for Enterococcus VRE and patient is continued on daptomycin and Eraxis. Wound culture showing Hali and will discuss further with infectious disease along with orthopedics regarding discharge planning * Continue with aspiration precautions and dysphagia 3 chopped diet with supervision with meals and recommend head of the bed elevated 30 to 45 degrees at all times * Concerns for hospital-acquired delirium as well with psychiatry evaluating the patient and following making recommendations and again avoid APRON TRIMMER and narcotic agents is much as possible * In regards to fall patient will need physical therapy Occupational Therapy evaluation maintain fall precautions. Plan is returning to [facility] on discharge * In regards to postoperative fluid collection, infectious disease and orthopedics following and patient underwent washout and revision of the recent surgery on the back today 07/10/2023 continue with Prevena wound VAC to the thoracic incision * Regards to history of bipolar disorder continue patient on Lamictal and Seroquel psychiatry following making adjustments to medications. * Xarelto has been resumed * CODE STATUS is full code * Will discuss further with consultations regarding discharge planning if patient is requiring IV antibiotic with possible PICC line and return to ECF for continued IV antibiotic therapy along with rehab for continued strength and mobility * Due to multiple complex medical issues, prognosis is guarded The impression and plan of care has been dictated by Tameka Burleson, Nurse Practitioner as directed. Dr. John MD I have performed a history and examination and MDM of this patient, discussed the same with the dictator, and agree with the dictator's assessment and plan as written ,documented as a scribe. Based on total visit time, I have performed more than 50% of the visit. Objective - Vital Signs Vital signs: Vital Signs Temp 97.2 F L 07/13/23 14:00 Pulse 72 07/13/23 14:00 Resp 16 07/13/23 14:00 BP 150/73 07/13/23 14:00 Pulse Ox 95 07/13/23 14:00 FiO2 Intake & Output 07/12/23 07/13/23 07/13/23 18:59 06:59 18:59 Weight 65 kg Other: Voiding Method Diaper Diaper Diaper # Voids 3 2 1 - Labs CBC & Chem 7: 07/12/23 06:45 07/12/23 06:45 Labs: Microbiology - Last 24 Hours (Table) 07/10/23 19:55 Anaerobic Culture - Preliminary Back 07/10/23 19:55 Gram Stain - Final Back Wound Culture - Final Hali albicans 07/10/23 19:55 Anaerobic Culture - Preliminary Back 07/10/23 19:55 Gram Stain - Final Back Wound Culture - Final
--- NOTE | 2023-07-13 15:32 | P.PN ---
Subjective Progress Note Date: 07/13/23 Principal diagnosis: Reason for follow-up is UTI and abnormal CT thoracolumbar spine Patient is a 68-year-old female past medical history anxiety bipolar depression, patient recently did have extensive T10 to pelvis decompression and fusion by Dr. Sheehan 7 in March 2023 subsequently patient did have a T9 burst fracture status post T6-10 posterior stabilization with ORIF on May 15, 2023 patient did have a recent admission to the hospital concerning for possible cellulitis infection to the thoracic spine area patient is status post I&D and cultures was negative, the patient has not been brought back to the hospital concerning for mental status changes did have a abnormal CT suggestive of fluid collection possible abscess. On today's evaluation that is 07/13/2023,the patient remains to be afebrile, patient is breathing comfortably currently on room air patient remains to be pleasantly confused and cannot provide interval history vomiting diarrhea and changes reported. No new labs has been repeated today Objective - Vital Signs Vital signs: Vital Signs Temp 97.2 F L 07/13/23 07:46 Pulse 95 07/13/23 07:46 Resp 17 07/13/23 07:46 BP 134/73 07/13/23 07:46 Pulse Ox 95 07/13/23 07:46 FiO2 Intake & Output 07/12/23 07/13/23 07/13/23 18:59 06:59 18:59 Weight 65 kg Other: Voiding Method Diaper Diaper Diaper # Voids 3 2 - Exam GENERAL DESCRIPTION: An elderly female lying in bed in no distress RESPIRATORY SYSTEM: Unlabored breathing , decreased breath sounds at bases HEART: S1 S2 regular rate and rhythm , ABDOMEN: Soft , no tenderness EXTREMITIES: No edema feet - Labs CBC & Chem 7: 07/12/23 06:45 07/12/23 06:45 Labs: Microbiology - Last 24 Hours (Table) 07/10/23 19:55 Anaerobic Culture - Preliminary Back 07/10/23 19:55 Gram Stain - Final Back Wound Culture - Final Hali albicans 07/10/23 19:55 Anaerobic Culture - Preliminary Back 07/10/23 19:55 Gram Stain - Final Back Wound Culture - Final Assessment and Plan (1) Surgical site infection Current Visit: Yes Status: Acute Code(s): T81.49XA - INFECTION FOLLOWING A PROCEDURE, OTHER SURGICAL SITE, INIT SNOMED Code(s): 06986856 (2) UTI (urinary tract infection) Current Visit: Yes Status: Acute Code(s): N39.0 - URINARY TRACT INFECTION, SITE NOT SPECIFIED SNOMED Code(s): 99691249 Plan: 1patient presented to hospital with mental status changes which is likely multifactorial patient recently did have multiple surgeries to the thoracolumbar spine area and the patient noticed to have abnormal CT with a small fluid collection concerning for possible postop seroma versus abscess patient already fever white count is normal abscess less likely not excluded also have a positive UA concerning for possible component of symptomatic UTI 2-patient did have elevated CRP sed rate is normal at 13, urine is growing VRE and yeast 3-patient remains to be afebrile white count is normal however mentation remains to be an issue MRI was negative for any acute changes neurology is following the patient as well as psychiatry 4-patient currently being treated with daptomycin along with Eraxis, and waiting for further surgical recommendation per spine surgery Dictation was produced using [employer] dictation software. please excuse any grammatical, word or spelling errors. Time with Patient: Less than 30
--- NOTE | 2023-07-14 06:36 | P.OP ---
Date of Procedure: 07/10/23 Preoperative Diagnosis: 1. THORACIC WOUND DEHISCENCE 2. S/P REVISION T/L FUSION AND STABILIZATION FOR THORACOLUMBAR FRACTURE ABOVE A FUSION 3. COMPLEX MEDICAL PATIENT 4. HX CVA 5. LE WEAKNESS Postoperative Diagnosis: 1. THORACIC WOUND DEHISCENCE 2. S/P REVISION T/L FUSION AND STABILIZATION FOR THORACOLUMBAR FRACTURE ABOVE A FUSION 3. COMPLEX MEDICAL PATIENT 4. HX CVA 5. LE WEAKNESS Procedure(s) Performed: 1. THORACIC SPINE EXCISIONAL DEBRIDEMENT OF SKIN, SOFT TISSUE AND BONE WITH IRRIGATION AND DEBRIDEMENT [id number] CM USING THE FOLLOWING: -KNIFE USED FOR EXCISION OF NECROTIC SKIN AND SOFT TISSUES -CURETTE USED TO REMOVE NECROTIC SOFT TISSUES AND BONE -RONGURE USED TO REMOVE PROMINENT BONE AND SOFT TISSUES 2. 3 LAYER COMPLEX CLOSURE THORACIC SPINE [id number] CM Anesthesia: DOMINICA Surgeon: Bertin Flores Ginner Helper #1: Hiram Lew (WAS PRESENT AND ASSISTED WITH ALL ASPECTS OF THE CASE FROM POSITION TO CLOSURE) Estimated Blood Loss (ml): 25 IV fluids (ml): 1,000 Urine output (ml): 1,200 Pathology: other (X2 THORACIC WOUND) Condition: stable Disposition: PACU Indications for Procedure: Darline Chiang is a 68 yo female presenting for evaluation of confusion, wound dehiscence. It was my pleasure to have seen and examined Darline Chiang . In our visit today we have had a chance to go over subjective complaints, physical examination findings and treatments including the natural course history without intervention and various interventional options. The patients imaging demonstrates possible fluid collection over the thoracic area upper portion. . On physical exam, Darline Chiang demonstrates wound dehiscence thoracic spine. I have explained to the patient that as their condition progresses it will cause further neurological deficits and eventual paralysis. Based on the patients imaging, physical exam, and the rapid progression and disabling nature of their symptoms, at this time I recommend surgery in the form or a: Irrigation and debridement of the thoracic spine wound with wound revision. I discussed the risk and benefits of this procedure at length with Darline Chiang . The patient her sons over the phone as they were not present, agreed to considered pursuing the procedure abovementioned. Prior to surgery, she should follow up with her PCP (Cardio, ID, IM etc) for clearance. Questions were invited and answered, and the patient wishes to proceed as outlined below. Currently, I am recommendin. Irrigation and debridement of the thoracic spine wound with wound revision Description of Procedure: The patient was seen and examined in the preoperative area. All preoperative protocols were followed. Informed consent was obtained risks and benefits of the procedure were discussed at length. Risks including bleeding infection damage to the surrounding tissue and risk of reoperation were discussed with the patient. Risk of anesthesia up to and including was a discussed with the patient. These are outlined in the risk review. They were willing to accept th rosalee risks and all of the risks of surgery. The patient was given a weight-based dose of antibiotics in the form of Daptomycin from the floor. The patient was seen and evaluated by the anesthesia team who deemed them fit for surgery. The site was marked, the patient was willing to proceed with the procedure. The patient was transferred to the operative suite by the Department of anesthesia. They were then drifted off to sleep by the department anesthesia and GETA was performed. The patient tolerated this well. [Almendarez catheter was placed by nursing staff, atraumatically]. Once confirmation of lines and ventilation the patient was transferred to a [prone Gerardo table very carefully]. All bony prominences including wrists, elbows, axilla, chest, hips, and thighs, and feet were padded very well. Special attention was paid to the genitalia and these were padded accordingly. SCDs were placed on bilateral lower extremities and were connected. Arms were well padded and placed [on arm boards up and out in the 90/90 position]. Once in position, again we confirmed good ventilation capabilities and that lines were running appropriately. The patient's Thoracolumbar spine was then exposed. 1010s were placed outlining the incision site. Standard alcohol was used to clean the incision site and allowed to dry. C-arm was used to biomark the patient and confirm level for incision whi ch was marked with a skin marker. Operative briefing was performed with all teams and everyone in agreement to proceed. The patient was then prepped and draped in a normal sterile fashion. Timeout was then performed and all parties were in agreement with the procedure to be performed. Elliptical skin incision was made over the dehiscence area of the thoracic wound which was the top 1/3 of the incision. This allowed us to excise the necrotic soft tissues as well as freshen the skin edges. There was good bleeding skin and soft tissues. This was then excised. Underlying soft tissue showed some serous like fluid collection which was cultured superficial and deep. The cranial SP from the previous one removed was again prominent in the area likely causing some pressure due to her condition, and so a rongure was used to flatten this and blunt it. Soft tissues in the area were then cleaned and any necrotic tissues excised. Then 2L of a betadine solution were run through the wound fo llowed by 3L of ancef irrigation. Then 1L irricept followed by 3L gentamycin irrigation. 6L NSS irrigation was then used to finish off the irrigation. All the while during irrigation we debrided the area with curette and rongure of any free tissue, necrotic tissues or suspicious tissues. Once this was accomplished the wound was inspected and appeared devoid of necrotic tissues. We then procee ded to 3 layered complex closure. First in the deep facial tissues 0 Vicryl were placed. 2g of vancomycin powder as well as 1g of cellerate powder were placed deep in the wound. Then the deep subq tissues were closed with 0 Vicryl, the superficial closed with 2-0 vicryl and the skin was closed with a 2-0 nylon in a horizontal mattress fashion. The wound edges everted and approximated well. The wound was then cleaned with alcohol and dried. It was then dressed sterilely with adaptic, 4x4, ABD and foam tape. The patient was transferred back to their hospital bed atraumatically. Maria jackson was then awakened and extubated by the department of anesthesia having tolerated the procedure very well with no complications. They were transferred to the postoperative care unit in stable condition.
--- NOTE | 2023-07-14 09:54 | P.PN ---
Subjective Progress Note Date: 07/14/23 Principal diagnosis: Post-op abscess Patient seen and examined this morning. Patient is resting comfortably in bed. Patient is more alert today, she is able to tell me the year, where she is at and that she had surgery last week. She states her pain is controlled at this time. Incision to the thoracic spine is well approximated with sutures intact. New dressing applied. Patient is progressing well towards discharge. Patient is cleared from an Orthopedic standpoint. Objective - Vital Signs Vital signs: Vital Signs Temp 98.5 F 07/14/23 02:00 Pulse 89 07/14/23 02:00 Resp 16 07/14/23 02:00 BP 161/89 07/14/23 02:00 Pulse Ox 97 07/14/23 02:00 FiO2 Intake & Output 07/13/23 07/14/23 07/14/23 18:59 06:59 18:59 Intake Total 340 Output Total 200 Balance 140 Weight 63 kg Intake: Oral 340 Output: Urine 200 Other: Voiding Method Diaper Diaper Incontinent # Voids 1 3 - Exam Inspection: Surgical incision is well to me with sutures intact. New dressing applied. Patient is moving BUE and BLE freely without any difficulty. Neurovascular: Radial pulse intact, 2+ bilaterally. Cap refill under 3 seconds in digits upper extremities. - Labs CBC & Chem 7: 07/12/23 06:45 07/12/23 06:45 Labs: Microbiology - Last 24 Hours (Table) 07/10/23 19:55 Anaerobic Culture - Preliminary Back 07/10/23 19:55 Gram Stain - Final Back Wound Culture - Final Hali albicans 07/10/23 19:55 Anaerobic Culture - Preliminary Back 07/10/23 19:55 Gram Stain - Final Back Wound Culture - Final Assessment and Plan Assessment: Postop day 4: status post irrigation and debridement thoracic spine wound with wound revision Previous Revision T6T10 posterior stabilization with ORIF at T9 Previous [id number] decompression and fusion Delayed wound healing Multiple complex comorbidities Plan: Reposition patient every 2 hours to keep pressure off of her back, position with pillows. 2. Appreciate medical management 3. Pain management - Tylenol and Flexeril 4. GI prophylaxis - per medicine 5. DVT prophylaxis - Lovenox 6. PT/OT - weightbearing as tolerated with a walker as needed. 7. Appreciate consult I reviewed and discussed this case with my attending Dr. Flores, whom has reviewed this chart and films and is in agreement with assessment and plan of care as outlined above. I have personally seen and examined the patient, performed the documentation and the assessment and plan as written. Number of minutes spent on the visit: 30m.
[2023-07-14 11:15] VITALS: BMI 22.4
[2023-07-14 13:05] VITALS: BP 135/87; PULSE 77; RESP 18; TEMP 97.8
--- NOTE | 2023-07-14 14:27 | P.DS ---
Providers Date of admission: 07/04/23 23:35 Expected date of discharge: 07/14/23 Attending physician: Luzma Rabago MD Consults: 07/04/23 23:34 Consult Physician Urgent Consulting Provider: Bertin Flores Consult Reason/Comments: post-op abscess Do you want consulting provider notified?: Yes 07/05/23 01:02 Consult Physician Routine Consulting Provider: Garry Sanchez Consult Reason/Comments: UTI Do you want consulting provider notified?: Yes 07/05/23 11:42 Consult Physician Routine Consulting Provider: Julio Duffy Consult Reason/Comments: r/o previous stroke, patient demonstrating aphasia- word salad Do you want consulting provider notified?: Yes 07/08/23 15:07 Consult Physician Urgent Consulting Provider: Anthony Winn Consult Reason/Comments: altered mental status, confusion, delirium Do you want consulting provider notified?: Yes Primary care physician: Anthony Fowler Hospital Course: Final diagnosis Acute toxic metabolic encephalopathy, multifactorial likely secondary to polypharmacy, infection, UTI Sepsis, present on admission secondary to urinary tract infection Polypharmacy, medications adjusted recommend limiting narcotic use S/p fall suspect compression fracture of thoracic spine Postoperative fluid collection with concerns of abscess. Status post revision with washout. Repeat cultures are negative. Initial culture showing Hali albicans VRE urinary tract infection related to indwelling Almendarez catheter History of bipolar disorder Chronic pulmonary embolism Hypothyroid Essential hypertension GI prophylaxis DVT prophylaxis Full code Discharge disposition Patient is being discharged in a stable condition with guarded prognosis to [facility]. Patient will follow-up with Dr. Fowler in the outpatient setting upon discharge. Patient is to continue with close outpatient follow-up with orthopedics in 1 week as scheduled. Total time taken is greater than 35 minutes. Hospital course This is a 62-year-old male who was recently admitted with altered mental status with concerns of urinary tract infection, present on admission. Patient does have chronic indwelling Almendarez catheter since initial surgery intervention and l ikely due to chronic Almendarez. Almendarez was exchanged and patient was evaluated by infectious disease maintained on antibiotics as urine cultures finalized showing VRE. Patient also evaluated by orthopedics and underwent revision with washout on on 07/10/2023 with concerns of postoperative abscess. Patient underwent revision and fusion with stabilization of the thoracolumbar fracture above the fusion. On reevaluation today by orthopedics dressing was changed to the incision line of the thoracic spine and appears well-approximated with sutures intact. Patient is to continue with frequent offloading and position changes every 2 hours and attempting to keep the patient off of her back and frequent positioning with pillows. Patient's mentation is much improved and adjustments to medications have been made recommending limiting narcotic use. Patient did undergo thorough neurological workup which was negative most likely polypharmacy. Patient was also evaluated by psychiatry with adjustments to medications made. Patient has been treated adequately with IV antibiotics per ID recommendations for urinary tract infection and will not require antibiotics on discharge. Orthopedics will follow-up and evaluate the patient in 1 to 2 weeks and also agreeable patient will not require antibiotics on discharge as repeat cultures have remained negative. Recommend aggressive PT/OT therapy for strength and mobility. Patient has been cleared by consultations for discharge. Please refer to consultation notes for further HPI. Currently no reports of chest pain, shortness of breath, or palpitations. Patient is afebrile. No reports of nausea or vomiting and patient is tolerating diet. Patient will be going to [facility] today. Guarded prognosis and high risk for readmissions given patient's significant comorbidities. Physical exam: Gen: This is a 68 year old female who is awake, alert and oriented x2-3. well developed, elderly appearing HEENT: Head is atraumatic, normocephalic. Pupils equal, round. Sclerae is anicteric. NECK: Supple. No JVD. No lymphadenopathy. No thyromegaly. LUNGS: Clear to auscultation. No wheezes or rhonchi. No intercostal retractions. HEART: S1, S2 muffled ABDOMEN: Soft. Bowel sounds are present. No masses. No tenderness. EXTREMITIES: No pedal edema. No calf tenderness. NEUROLOGICAL: Patient is awake, alert and oriented x2. Cranial nerves 2 through 12 are grossly intact. diffusely weak Please refer to medication reconciliation sheet for a list of medications. The impression and plan of care has been dictated by Tameka Burleson, Nurse Practitioner as directed. Dr. John MD I have performed a history and examination and MDM of this patient, discussed the same with the dictator, and agree with the dictator's assessment and plan as written ,documented as a scribe. Based on total visit time, I have performed more than 50% of the visit. Patient Condition at Discharge: Fair Plan - Discharge Summary Discharge Rx Participant: Yes New Discharge Prescriptions: New busPIRone HCl [Buspar] 10 mg PO TID tab Folic Acid 1 mg PO DAILY@1200 tab Acetaminophen Tab [Tylenol] 1,000 mg PO Q6HR PRN tab PRN Reason: Pain Control traMADol HCl [Ultram] 50 mg PO QID PRN #4 tab PRN Reason: Pain OLANZapine [ZyPREXA] 5 mg PO TID PRN tab PRN Reason: Agitation Or Acute Psychosis Multivitamins, Thera [Multivitamin (formulary)] 1 each PO DAILY@1200 tab QUEtiapine [SEROquel] 100 mg PO DAILY tab Thiamine [Vitamin B-1] 100 mg PO DAILY tab Continue Ergocalciferol [Vitamin D2 (1250 Mcg = 46648 Iu)] 1,250 mcg PO FR cefaDROXiL [Duricef] 500 mg PO Q12HR Sennosides/Docusate Sodium [Senna Plus 8.6-50 mg Softgel] 1 cap PO DAILY Levothyroxine Sodium [Synthroid] 25 mcg PO DAILY Linaclotide [Linzess] 145 mcg PO DAILY PRN PRN Reason: Constipation Cyclobenzaprine [Flexeril] 5 mg PO Q8H PRN PRN Reason: Muscle Spasm carvediloL [Coreg] 6.25 mg PO BID-W/MEALS tab Sodium Chloride Tab 1 gm PO BID tab Rivaroxaban [Xarelto] 20 mg PO W/SUPPER tab Healthshake 1 dose PO TID@0800,1200,1800 Magnesium Hydroxide [Milk of Magnesia] 2,400 mg PO Q72H PRN PRN Reason: Constipation QUEtiapine [SEROquel] 400 mg PO HS Naloxone HCl [Narcan] 4 mg NASAL DIRECTED PRN PRN Reason: Opioid Reversal Discontinued lamoTRIgine [LaMICtal] 200 mg PO BID 30 Days #60 tablet Acetaminophen Tab [Tylenol] 650 mg PO Q6HR PRN tab PRN Reason: Mild Pain Or Fever > 100.5 traZODone HCL [Desyrel] 50 mg PO HS QUEtiapine [SEROquel] 50 mg PO DAILY #0 LORazepam [Ativan] 0.5 mg PO Q12HR@0800,2000 PRN PRN Reason: Anxiety oxyCODONE-APAP 10-325MG [Percocet 10-325 mg] 1 tab PO Q6H Discharge Medication List Cyclobenzaprine [Flexeril] 5 mg PO Q8H PRN 05/12/23 [History] Ergocalciferol [Vitamin D2 (1250 Mcg = 95571 Iu)] 1,250 mcg PO FR 05/12/23 [History] Linaclotide [Linzess] 145 mcg PO DAILY PRN 05/12/23 [History] Rivaroxaban [Xarelto] 20 mg PO W/SUPPER tab 05/23/23 [Rx] Sodium Chloride Tab 1 gm PO BID tab 05/23/23 [Rx] carvediloL [Coreg] 6.25 mg PO BID-W/MEALS tab 05/23/23 [Rx] Healthshake 1 dose PO TID@0800,1200,1800 06/19/23 [History] Magnesium Hydroxide [Milk of Magnesia] 2,400 mg PO Q72H PRN 06/19/23 [History] Levothyroxine Sodium [Synthroid] 25 mcg PO DAILY 07/04/23 [History] Naloxone HCl [Narcan] 4 mg NASAL DIRECTED PRN 07/04/23 [History] QUEtiapine [SEROquel] 400 mg PO HS 07/04/23 [History] Sennosides/Docusate Sodium [Senna Plus 8.6-50 mg Softgel] 1 cap PO DAILY 07/04/23 [History] cefaDROXiL [Duricef] 500 mg PO Q12HR 07/04/23 [History] Acetaminophen Tab [Tylenol] 1,000 mg PO Q6HR PRN tab 07/14/23 [Rx] Folic Acid 1 mg PO DAILY@1200 tab 07/14/23 [Rx] Multivitamins, Thera [Multivitamin (formulary)] 1 each PO DAILY@1200 tab 07/14/23 [Rx] OLANZapine [ZyPREXA] 5 mg PO TID PRN tab 07/14/23 [Rx] QUEtiapine [SEROquel] 100 mg PO DAILY tab 07/14/23 [Rx] Thiamine [Vitamin B-1] 100 mg PO DAILY tab 07/14/23 [Rx] busPIRone HCl [Buspar] 10 mg PO TID tab 07/14/23 [Rx] traMADol HCl [Ultram] 50 mg PO QID PRN #4 tab 07/14/23 [Rx] Follow up Appointment(s)/Referral(s): Anthony Fowler DO [Primary Care Provider] - 1-2 days Makayla Salas NPC [Nurse Practitioner] - 1 Week Activity/Diet/Wound Care/Special Instructions: Orthopedic discharge instructions: 1. Daily dressing changes 2. Utilize nonadherent dressing over incision, recommend use of multiple 4 x 4's and ABDs to pad skin. 3. Avoid excessive adhesive to prevent skin breakdown 4. Recommend constantly turning patient on her sides to prevent direct contact to the incision 5. Avoid laying on back is much as possible 6. [facility] 1 [facility] for evaluation Discharge Disposition: TRANSFER TO SNF/ECF
--- NOTE | 2023-07-14 14:50 | P.PN ---
Subjective Progress Note Date: 07/14/23 I took over the service from Dr. Villasenor. Please refer to his notes for further details. I seen the patient last on 07/05/2023. It seems patient has VRE UTI and mentation is improving. Objective - Vital Signs Vital signs: Vital Signs Temp 97.8 F 07/14/23 12:58 Pulse 77 07/14/23 12:58 Resp 18 07/14/23 12:58 BP 135/87 07/14/23 12:58 Pulse Ox 98 07/14/23 12:58 FiO2 Intake & Output 07/13/23 07/14/23 07/14/23 18:59 06:59 18:59 Intake Total 340 Output Total 200 Balance 140 Weight 63 kg 63 kg Intake: Oral 340 Output: Urine 200 Other: Voiding Method Diaper Diaper Diaper Incontinent Incontinent # Voids 1 3 - Exam General: Lying in bed and does not appear in acute distress. Neuro: Patient is mildly drowsy but is awake with a forcep. She is more awake, compared to last examination I had with her. She is oriented to self and place. She was able to name objects such as pen and watch. She responded more appr opriate and seems less confused this time compared to as I stated the last examination I had which was a on 07/05/2023. No facial weakness. No dysarthria. She is "all extremities above gravity equal ly. - Labs CBC & Chem 7: 07/12/23 06:45 07/12/23 06:45 Labs: Abnormal Lab Results - Last 24 Hours (Table) 07/14/23 Range/Units 07:20 C-Reactive Protein 7.7 H (<1.0) mg/dL Microbiology - Last 24 Hours (Table) 07/10/23 19:55 Anaerobic Culture - Preliminary Back 07/10/23 19:55 Gram Stain - Final Back Wound Culture - Final Hali albicans 07/10/23 19:55 Anaerobic Culture - Preliminary Back Assessment and Plan Assessment: This is a 68-year-old woman with history of back pain with surgery March 2023 and since the back surgery she's been having confusion that's worsening with the speech difficulty. She is a been in and out of the hospital because of her confusion. She had multiple urinary tract infection. She had a fall and gender 2023 and had burst fracture and T9 which she had the surgery afterwards as a re sult. Patient confusion with aphasia seems more delirium from UTI as well as abscess---improving Acute UTI with Enterococcus faecium VRE, and yeast species. Surgical site infection, patient has wound VAC Chronic lower back pain with unsteady gait status post [id number] decompression and fusion in March 2023 that the patient had a fall in 04/2023 and had fracture T9 then had surgery on 05/15/2023 History of recurrent UTIs History of pulmonary embolism on Xarelto Plan: Patient has acute delirium. Cannot evaluate for cognitive functions while patient is delirious. Dr. Villasenor has notified daughter, recommended that once her delirium has resolved, and all medical conditions under control, and then if she still has memory disturbance, should follow-up with neurologist outpatient for further evaluation of cognitive functions. Patient currently on Seroquel 100 mg in the morning, and [address] Villasenor, empirically started thiamine 100 mg daily. No history of alcoholism. MRI of the brain without contrast revealed no evidence of intracranial mass, acute/subacute infarct. Nonspecific white matter changes, likely secondary to small vessel ischemic disease. I personally reviewed MRI brain, agree with the findings. EEG was abnormal due to background slowing of moderate degree, suggestive of encephalopathy. No epileptiform activity was seen. Patient had a recent TSH, vitamin B-12 and folate therefore no need to repeat. Check NMDA antibodies per Dr. Villasenor and pending. If possible avoid opiates and benzos Orthopedic is on board Patient's urine cultures have grown Enterococcus faecium VRE, and yeast species. Patient currently on Eraxis, daptomycin. ID following. I'll defer the rest of the medical management to primary and other specialists. The plan is discussed with nurse. There is no further neurological work-up. Will follow-up sporadically. Time with Patient: Less than 30
--- NOTE | 2023-07-14 15:40 | P.PN ---
Subjective Progress Note Date: 07/14/23 Principal diagnosis: Reason for follow-up is UTI and abnormal CT thoracolumbar spine Patient is a 68-year-old female past medical history anxiety bipolar depression, patient recently did have extensive T10 to pelvis decompression and fusion by Dr. Sheehan 7 in March 2023 subsequently patient did have a T9 burst fracture status post T6-10 posterior stabilization with ORIF on May 15, 2023 patient did have a recent admission to the hospital concerning for possible cellulitis infection to the thoracic spine area patient is status post I&D and cultures was negative, the patient has not been brought back to the hospital concerning for mental status changes did have a abnormal CT suggestive of fluid collection possible abscess. On today's evaluation that is 07/14/2023,the patient remains to be afebrile, patient is on room air not requiring supplemental oxygen, the patient is more awake and alert today denies any shortness of breath no chest pain or cough. Patient denies having any nausea or vomiting, no abdominal pain and no diarrhea has been reported. No new labs has been obtained with the patient did have a sed rate of 12 CRP is down to 7.7 blood culture negative Objective - Vital Signs Vital signs: Vital Signs Temp 97.8 F 07/14/23 12:58 Pulse 77 07/14/23 12:58 Resp 18 07/14/23 12:58 BP 135/87 07/14/23 12:58 Pulse Ox 98 07/14/23 12:58 FiO2 Intake & Output 07/13/23 07/14/23 07/14/23 18:59 06:59 18:59 Intake Total 340 Output Total 200 Balance 140 Weight 63 kg 63 kg Intake: Oral 340 Output: Urine 200 Other: Voiding Method Diaper Diaper Diaper Incontinent # Voids 1 3 - Exam GENERAL DESCRIPTION: An elderly female lying in bed in no distress RESPIRATORY SYSTEM: Unlabored breathing , decreased breath sounds at bases HEART: S1 S2 regular rate and rhythm , ABDOMEN: Soft , no tenderness EXTREMITIES: No edema feet - Labs CBC & Chem 7: 07/12/23 06:45 07/12/23 06:45 Labs: Abnormal Lab Results - Last 24 Hours (Table) 07/14/23 Range/Units 07:20 C-Reactive Protein 7.7 H (<1.0) mg/dL Microbiology - Last 24 Hours (Table) 07/10/23 19:55 Anaerobic Culture - Preliminary Back 07/10/23 19:55 Gram Stain - Final Back Wound Culture - Final Hali albicans 07/10/23 19:55 Anaerobic Culture - Preliminary Back Assessment and Plan (1) Surgical site infection Current Visit: Yes Status: Acute Code(s): T81.49XA - INFECTION FOLLOWING A PROCEDURE, OTHER SURGICAL SITE, INIT SNOMED Code(s): 52530014 (2) UTI (urinary tract infection) Current Visit: Yes Status: Acute Code(s): N39.0 - URINARY TRACT INFECTION, SITE NOT SPECIFIED SNOMED Code(s): 55547282 Plan: 1patient presented to hospital with mental status changes which is likely multifactorial patient recently did have multiple surgeries to the thoracolumbar spine area and the patient noticed to have abnormal CT with a small fluid collection concerning for possible postop seroma versus abscess patient already fever white count is normal abscess less likely not excluded also have a positive UA concerning for possible component of symptomatic UTI 2-patient did have elevated CRP sed rate is normal at 13, urine is growing VRE and yeast 3-patient remains to be afebrile white count is normal patient seem to back to her normal mentation baseline today 4-patient has received adequate daptomycin along with Eraxis for UTI and can be discontinued spine surgery not concerned about infection to the spine with a normal sed rate and not recommending any surgery discussed with the admitting team working on discharge Dictation was produced using [employer] dictation software. please excuse any grammatical, word or spelling errors. Time with Patient: Less than 30
== END 2023-07-14 16:48 | DRG 856 ==
LOC: EC 19:10 → 3SCARD 23:35 → 5NMEDONC 07-10 02:58
PROVIDERS: ADMIT Internal Medicine; ATTEND Internal Medicine
PROC: 4A10X4Z Monitoring of Central Nervous Electrical Activity, External Approach (ICD-10-PCS; 2023-07-06)
PROC: 2W15X6Z Compression of Back using Pressure Dressing (ICD-10-PCS; 2023-07-10)
PROC: 0JB70ZZ Excision of Back Subcutaneous Tissue and Fascia, Open Approach (ICD-10-PCS; principal; 2023-07-10 07:30)
DX: T81.41XA Infection following a procedure, superficial incisional surgical site, initial encounter (principal); A41.9 Sepsis, unspecified organism; G92.8 Other toxic encephalopathy; N39.0 Urinary tract infection, site not specified; T83.511A Infection and inflammatory reaction due to indwelling urethral catheter, initial encounter; F05 Delirium due to known physiological condition; M48.54XA Collapsed vertebra, not elsewhere classified, thoracic region, initial encounter for fracture; Z16.21 Resistance to vancomycin; L02.212 Cutaneous abscess of back [any part, except buttock and flank]; T81.31XA Disruption of external operation (surgical) wound, not elsewhere classified, initial encounter; Y84.8 Other medical procedures as the cause of abnormal reaction of the patient, or of later complication, without mention of misadventure at the time of the procedure; B95.2 Enterococcus as the cause of diseases classified elsewhere; D64.9 Anemia, unspecified; F31.9 Bipolar disorder, unspecified; E03.9 Hypothyroidism, unspecified; Z79.890 Hormone replacement therapy; I44.0 Atrioventricular block, first degree; K59.00 Constipation, unspecified; W19.XXXA Unspecified fall, initial encounter; Z74.01 Bed confinement status; F41.9 Anxiety disorder, unspecified; I69.320 Aphasia following cerebral infarction; D50.9 Iron deficiency anemia, unspecified; Z79.01 Long term (current) use of anticoagulants; Z79.899 Other long term (current) drug therapy; Z87.440 Personal history of urinary (tract) infections; Z91.81 History of falling; Z98.84 Bariatric surgery status; Z98.1 Arthrodesis status; Y84.6 Urinary catheterization as the cause of abnormal reaction of the patient, or of later complication, without mention of misadventure at the time of the procedure
CPT/HCPCS: 36415; 70450; 70551; 71045; 71046; 72125; 72129; 72132; 80048; 80053; 80202; 81001; 83605; 83880; 84443; 85025; 85610; 85652; 85730; 86140; 86255; 87040; 87070; 87075; 87077; 87086; 87186; 87205; 87636; 93005; 95816; 96361; 96365; 96366; 96367; 96375; 99285

== ENCOUNTER 2023-11-29 21:00 | Inpatient (IN) | payer MEDICARE, BC ==
--- NOTE | 2023-12-24 11:55 | CT ---
EXAM: CT brain without contrast DATE: 11/27/2023 14:19 INDICATION: Patient age:REBECCA BLAND : 1955 Reason for study: Fall, pain COMPARISON: None, please note PACS downtime occurred during the radiologist interpretation of these i mages with limited priors/reports.. TECHNIQUE: Multiple axial CT images of the brain were obtained without IV contrast. One or more CT do se reduction strategies were utilized during this examination. Total DLP administered was 1096 mGycm. FINDINGS: Extra-axial spaces: No abnormal extra-axial fluid collections. Ventricular system: Dilatation in proportion to cerebral atrophy. Cerebral parenchyma: Cerebral atrophy. No acute intraparenchymal hemorrhage or mass effect. The jaramillo -white junction is well differentiated. Scattered hypoattenuating areas are seen within the white mat ter. Cerebellum: Unremarkable. Mass effect: No evidence of midline shift. Intracranial vasculature: Atherosclerotic calcifications of the intracranial vessels. Soft tissues: Normal. Calvarium/osseous structures: No depressed skull fracture. Paranasal sinuses and mastoid air cells: Clear. Visualized orbits: Orbital contents are intact. IMPRESSION: 1. No acute intracranial process. 2. Nonspecific white matter changes, likely secondary to chronic small vessel ischemic disease.
--- NOTE | 2023-12-25 11:24 | XR ---
EXAMINATION TYPE: XR Hip LT and AP Pelvis DATE OF EXAM: 11/27/2023 INDICATION: Patient age:Female; 68 years old; Reason for study: PAIN FROM FALL; PHH. COMPARISON: 04/04/2023 TECHNIQUE: The left hip was examined in the frontal and lateral projections and a AP pelvis. FINDINGS: Post surgical changes with fusion changes involving the lumbosacral spine with bilateral sc rews crossing the SI joints. Medial joint space narrowing with acetabular sclerosis and marginal spur ring of both hips. Prior cephalization of left femoral fixation plate. No acute fracture or dislocati on. Pelvic phleboliths. No synovial soft tissue swelling. IMPRESSION: 1. No acute osseous pathology. Consider CT if there is continued clinical concern. 2. Mild osteoarthritic changes of both hips. 3. Postsurgical changes of the lumbosacral spine.
--- NOTE | 2023-12-28 16:20 | CT ---
Patient Darline Chiang ID [id number] Order # Procedure T-SPINE WO Date 12/01/2023 9:15:33 AM EXAMINATION TYPE: CT thoracic spine with and without contrast. CT DLP: 1496 mGycm, Automated exposure control for dose reduction was used. DATE OF EXAM: 12/01/2023 10:19 AM COMPARISON: THIS EXAM WAS READ DURING PACS DOWNTIME, NO PRIORS AVAILABLE. CLINICAL INDICATION:post op pain Contrast Media :ISOVIEW 300 Contrast amount:100 ml TECHNIQUE: Axial images of the thoracic spine were obtained without contrast. Coronal and sagittal re formats were performed. Contrast used: 100 cc Isovue-300. Oral contrast used: (none if empty) FINDINGS: Multilevel degeneration changes throughout the spine with osteophyte formation disc space narrowing and facet joint arthropathy. There is surgical changes extending at T5-T10 vertebroplasty c hanges. The T5 and T6 vertebrae are fused/compressed with 1 vertebroplasty cement inserted. The hardw are extending from T5 to L3 is intact. Pedicle screws appear in satisfactory position. There is surgi alejandro bed surrounding the exiting throughout the levels visualized. There is compression deformity of t he T3 vertebral body with at least 50% height loss. Possible deformity of T2 also present. Evidence f or significant spinal canal stenosis given streak artifact. There is multilevel neural foraminal sten osis throughout the spine worse at T7-T8 vertebral T2 9 and T9-T10 bilaterally with at least moderate to severe stenosis. Postsurgical changes gastroesophageal junction. Postsurgical changes of bowel. F ecal material in the left midlung. IMPRESSION: 1. Postsurgical changes with spinal hardware intact and appearing in appropriate position. Compariso ns with priors for subtle changes and position are not possible at this time. 2. Subtle cortical buckling of T2 and T3 vertebral bodies suggestive of fractures.
--- NOTE | 2024-01-01 14:16 | XR ---
Patient Darline Chiang ID [id number] EXAMINATION TYPE: XR chest 2V DATE OF EXAM: 11/29/2023 2:44 PM CLINICAL INDICATION: Fall, weakness COMPARISON: THIS EXAM WAS READ DURING PACS DOWNTIME, NO PRIORS AVAILABLE. TECHNIQUE: XR chest 2V Frontal view of the chest. FINDINGS: Lungs/Pleura: There is no evidence of pleural effusion, focal consolidation, or pneumothorax. Pulmonary vascularity: Unremarkable. Heart/mediastinum: Cardiomediastinal silhouette is enlarged. Musculoskeletal: No acute osseous pathology. Fixation suffered throughout the spine appears intact. M ultilevel vertebroplasty changes. IMPRESSION: No acute cardiopulmonary disease/process. Fixation hardware throughout spine appears intact.
--- NOTE | 2024-01-01 14:16 | XR ---
Patient Darline Chiang ID [id number] EXAMINATION TYPE: XR Hip Bilateral and AP pelvis DATE OF EXAM: 11/29/2023 2:46 PM CLINICAL INDICATION: Fall, weakness. COMPARISON: THIS EXAM WAS READ DURING PACS DOWNTIME, NO PRIORS AVAILABLE. TECHNIQUE: XR Hip Bilateral and AP pelvis; hip was examined in the frontal and lateral projections an d a AP pelvis. FINDINGS: No evidence for acute process, joint dislocation or significant soft tissue swelling. Osteo phyte formation of the superior acetabulum of the hip. There is mild joint space narrowing. Fixation changes of the spine appear intact. Left femur diaphysis hardware appears intact. IMPRESSION: 1. No evidence for acute process. 2. Mild to moderate hip osteoarthrosis. 3. Spine hardware and left femur hardware appear intact.
--- NOTE | 2024-01-01 15:50 | CDI ---
Documentation Clarification Form Date: 01/01/2024 03:26:57 PM From: Heidy Tapia Phone: Admit Date: 11/29/2023 09:00:00 PM Patient Name: Darline Chiang Visit Number: [id number] Discharge Date: 12/07/2023 06:59:00 PM ATTENTION: The Clinical Documentation Specialists (CDI) and [facility] Coding Staff appreciate your assistance in clarifying documentation. Please respond to the clarification below the line at the bottom and electronically sign. The CDI & [facility] Coding staff will review the response and follow-up if needed. Please note: Queries are made part of the Legal Health Record. If you have any questions, please contact the author of this message via ITS. Doctor/Provider: River Sheet Conflicting documentation has been found in the medical record. As attending physician, please provide clarification. AMS likely d/t TME, polypharmacy; Acute UTI Neuro Progress Note 12/02 (page 1of 8 paper chart) Metabolic Encephalopathy Progress Note 12/05 (of 4 of 8) and DCS Encephalopathy 12/02 Progress Note (Dr. Pal) (page 2 of 8 paper chart) History/Risk Factors: 68yo F, UTI, RAOUL, AMS d/t Encephalopathy, T2-3 compression Fx w Hx arthrodesis, BPD, hypothyroid, HTN, polypharmacy w noncompliance, unwitnessed fall w repeated falls Clinical Indicators: UA +; 122WBC; noncompliance w polypharmacy Treatment: Pt Started on Cepiaxone for UTI. Await Lamictal level, decrease LTG to 150bid per Neuro PN Pt admitted for UTI. Started on IV Rocephine per DCS Please clarify the type of encephalopathy, if known: [ x] Metabolic Encephalopathy [ ] Toxic Metabolic Encephalopathy [ ] Other, please specify [ ] Unable to determine (Template Last Revised: June 2020) MTDD
--- NOTE | 2024-01-05 14:02 | CT ---
Patient Darline Chiang ID [id number] EXAMINATION TYPE: CT brain cspine wo con CT DLP: 1368.6 mGycm, Automated exposure control for dose reduction was used. DATE OF EXAM: 11/29/2023 2:15 PM COMPARISON: THIS EXAM WAS READ DURING PACS DOWNTIME, NO PRIORS AVAILABLE. CLINICAL INDICATION: Fall, confusion, weakness. Rt sided contusion. TECHNIQUE: Brain: Multiple axial CT images of the brain were obtained without IV contrast. Cspine: Axial CT images from the skull base to the inferior aspect of T2 we obtained without intraven ous contrast. Coronal and sagittal reformatted images were also reviewed. FINDINGS: Brain: Extra-axial spaces: No abnormal extra-axial fluid collections. Ventricular system: Dilatation in proportion to cerebral atrophy. Cerebral parenchyma: Cerebral atrophy. No acute intraparenchymal hemorrhage or mass effect. The jaramillo -white junction is well differentiated. Scattered hypoattenuating areas are seen within the white mat ter. Cerebellum: Unremarkable. Mass effect: No evidence of midline shift. Intracranial vasculature: Atherosclerotic calcifications of the intracranial vessels. Soft tissues: Right periorbital edema Calvarium/osseous structures: No depressed skull fracture. Paranasal sinuses and mastoid air cells: Clear. Visualized orbits: Orbital contents are intact. Cervical spine: Fracture: Compression fracture of the T3 vertebral body with at least 50% height loss. No significant spinal canal stenosis. No evidence for fracture of the cervical spine. Osseous structures: Multilevel degenerative disc disease changes with endplate spurring and disc oste ophyte complex's. Vertebral alignment: Increased kyphotic alignment. Spinal canal/Neural Foramina: Disc osteophyte complexes at C5-C6 with at least mild spinal canal sten osis. Facet joint uncovertebral joint arthropathy scattered throughout the cervical spine with varyin g degrees of neural foraminal stenosis. Neck soft tissues: Prevertebral soft tissues are within normal limits. Other: The airway is patent. Atherosclerosis of the arterial vasculature. IMPRESSION: 1. No acute intracranial process. 2. Right periorbital edema without evidence of fracture. 3. Compression fracture of the T3 vertebral body with at least 50% height loss. No evidence for frac ture of the cervical spine. Findings could be a subacute to chronic in appearance of the vertebral damian dy. Correlate with MRI thoracic spine. Correlate with pain. 4. Moderate multilevel degenerative disc disease.
--- NOTE | 2024-01-14 14:41 | CONS ---
CONSULTATION LOCATION: 454. REASON FOR CONSULTATION: Urinary tract infection. HISTORY OF PRESENT ILLNESS: The patient is a 68-year-old female with multiple comorbidities, presenting to the hospital after the patient did have a fall and the patient was noticed to be slightly confused. The patient mentioned she was trying to pass in the kitchen and did collide with . Subsequently, the patient did fall down and has developed bruising to the right site of her forehead and temporal area with the patient denies having any significant headache. Denies any fever or any chills. The patient did have extensive workup during this hospital stay and noted to have T3 compression fracture for which the patient has been evaluated by Orthopedic Surgery. She was noticed to have a positive concern for a symptomatic urinary tract infection. She was started on Rocephin. Infectious Disease was consulted for further management of antibiotic therapy. The patient at the time of my evaluation denies having any fever or chills. The patient is breathing comfortably on room air. No chest pain, shortness of breath, occasional cough. No nausea. No vomiting. No abdominal pain. No diarrhea. Currently, did have some urinary symptom as reported by the admitting team. Denies having any diarrhea. REVIEW OF SYSTEMS: Positive points have been mentioned in HPI. Rest of systems are negative. PAST MEDICAL HISTORY: Reviewed. PAST SURGICAL HISTORY: Reviewed. SOCIAL HISTORY: Has been reviewed FAMILY HISTORY: Has been reviewed. MEDICATION: Has been reviewed. The patient is currently on Rocephin 1 g daily. ALLERGIES: Has been reviewed. PHYSICAL EXAMINATION: VITAL SIGNS: Blood pressure 134/79 with pulse of 73, temperature 98.1. GENERAL DESCRIPTION: An elderly female, lying in bed, in no distress. No tachypnea or accessory muscle of respiration use. HEENT: Shows no pallor or scleral icterus. Oral mucous membranes are dry. NECK: Trachea is central. No thyromegaly. LUNGS: Unlabored breathing. Clear to auscultation anteriorly. No wheeze or crackle. HEART: S1, S2. Regular rate and rhythm. No added sounds. ABDOMEN: Soft. No tenderness. No guarding or rigidity. No organomegaly. EXTREMITIES: No edema in the feet. SKIN: Large bruise to the right temporal and forehead area, but no redness or drainage. NEUROLOGIC: The patient is awake, alert, oriented x3. Mood and affect normal. LABORATORY DATA: UA is positive. White count is normal. Urine culture is currently pending. CT report as mentioned above. DIAGNOSTIC IMPRESSION/PLAN: 1. The patient presented to the hospital with weakness, mental status changes and fall. Did have positive concerning for symptomatic urinary tract infection likely from gram-negative pathogen. 2. We will wait for urine culture to finalize. 3. Rocephin 1 g daily while waiting for the culture to finalize. 4. We will follow on clinical condition and culture to further adjust medication if needed. Thank you for this consultation. Will follow this patient along with you. MMODL / IJN: [id number] /
--- NOTE | 2024-01-14 14:41 | PN ---
PROGRESS NOTE REASON FOR FOLLOWUP: Urinary tract infection. INTERVAL HISTORY: The patient is afebrile. The patient is breathing comfortably. The patient denies having any chest pain, shortness of breath or cough. No nausea, no vomiting. No abdominal pain, or diarrhea. Mentioned feeling better. PHYSICAL EXAMINATION: VITAL SIGNS: Blood pressure 145/87, pulse of 71, temperature 98.1. GENERAL DESCRIPTION: This is an elderly female lying in bed, in no distress. RESPIRATORY SYSTEM: Unlabored breathing. Clear to auscultation anteriorly. HEART: S1, S2. Regular rate. ABDOMEN: Soft, no tenderness. LABORATORY DATA: White count 5.97, creatinine 0.57. Urine culture currently pending. DIAGNOSTIC IMPRESSION AND PLAN: The patient with weakness, multifactorial did have a positive UA, has some urinary symptoms concerning for symptomatic urinary tract infection. We are currently waiting for the urine culture to finalize. Continue with Rocephin and monitor clinical course closely. MMODL / IJN: [id number] /
--- NOTE | 2024-01-14 14:42 | PN ---
PROGRESS NOTE DATE OF SERVICE: 12/05/2023 LOCATION: 454. REASON FOR FOLLOWUP: Urinary tract infection. INTERVAL HISTORY: The patient is afebrile. The patient is breathing comfortably on room air. No chest pain, shortness of breath, or cough. No nausea. No vomiting. No abdominal pain. No diarrhea. PHYSICAL EXAMINATION: VITAL SIGNS: Blood pressure is 96/60, pulse of 83, and temperature 97.8. GENERAL DESCRIPTION: This is an elderly female, lying in bed, in no distress. RESPIRATORY SYSTEM: Unlabored breathing. Clear to auscultation anteriorly. HEART: S1 and S2. Regular rate and rhythm. ABDOMEN: Soft. No tenderness. EXTREMITIES: No edema in the feet. LABORATORY DATA: White count 5.97. Urine culture with an E. coli sensitive pathogen. DIAGNOSTIC IMPRESSION AND PLAN: The patient with an Escherichia coli urinary tract infection. The patient is covered with Rocephin to continue while inpatient. Transition to short course of oral Ceftin on discharge. Multiple questions and questions were answered. MMODL / IJN: [id number] /
--- NOTE | 2024-01-14 14:43 | PN ---
PROGRESS NOTE DATE OF SERVICE: 12/06/2023 LOCATION: 454. REASON FOR FOLLOWUP: Urinary tract infection, E coli. INTERVAL HISTORY: The patient is afebrile. The patient is breathing comfortably. The patient denies having any chest pain, shortness of breath, or cough. No nausea. No vomiting. No abdominal pain or any diarrhea. PHYSICAL EXAMINATION: VITAL SIGNS: Blood pressure 133/82, pulse of 81, temperature of 98. GENERAL DESCRIPTION: This is an elderly female, lying in bed, in no distress. RESPIRATORY SYSTEM: Unlabored breathing. Clear to auscultation anteriorly. HEART: S1, S2. Regular rate and rhythm. ABDOMEN: Soft. No tenderness. LABORATORY DATA: Creatinine 0.9. White count is 5.97. Urine with E coli. DIAGNOSTIC IMPRESSION AND PLAN: The patient with Escherichia coli urinary tract infection, has some response to the Rocephin, to continue finishing therapy with and monitor clinical course closely. MMRASHIDL / IJN: [id number] /
--- NOTE | 2024-01-14 14:44 | PN ---
PROGRESS NOTE LOCATION: 454. REASON FOR FOLLOWUP: E coli urinary tract infection. INTERVAL HISTORY: The patient is afebrile. The patient is breathing comfortably. The patient denies having any chest pain, shortness of breath, or cough. No nausea or vomiting. No abdominal pain or diarrhea. PHYSICAL EXAMINATION: VITAL SIGNS: Blood pressure 117/74, pulse of 50, temperature of 98.9. GENERAL DESCRIPTION: She is an elderly female up in the chair, in no distress. RESPIRATORY SYSTEM: Unlabored breathing. Clear to auscultation anteriorly. HEART: S1 and S2. Regular rate and rhythm. ABDOMEN: Soft, no tenderness. EXTREMITIES: No edema in feet. LABORATORY DATA: No new labs have been obtained today. DIAGNOSTIC IMPRESSION AND PLAN: The patient with an E coli urinary tract infection, overall improvement on Rocephin. Consider short course outpatient followup. Questions were answered. MMODL / IJN: [id number] /
== END 2023-12-07 18:59 | disposition home health service (06) | DRG 689 ==
LOC: 1SOBS 21:00 → UNDOADMIN 22:28 → 1SOBS 22:28 → UNDODISIN 12-07 18:59
PROVIDERS: ADMIT Hospitalist; ATTEND Hospitalist
DX: N39.0 Urinary tract infection, site not specified (principal); G93.41 Metabolic encephalopathy; F05 Delirium due to known physiological condition; M84.48XA Pathological fracture, other site, initial encounter for fracture; F31.9 Bipolar disorder, unspecified; E03.9 Hypothyroidism, unspecified; I10 Essential (primary) hypertension; G31.84 Mild cognitive impairment of uncertain or unknown etiology; M62.522 Muscle wasting and atrophy, not elsewhere classified, left upper arm; M62.521 Muscle wasting and atrophy, not elsewhere classified, right upper arm; B96.20 Unspecified Escherichia coli [E. coli] as the cause of diseases classified elsewhere; R29.6 Repeated falls; W18.30XA Fall on same level, unspecified, initial encounter; Y92.008 Other place in unspecified non-institutional (private) residence as the place of occurrence of the external cause; Z91.148 Patient's other noncompliance with medication regimen for other reason; Z91.81 History of falling; Z79.899 Other long term (current) drug therapy; Z98.1 Arthrodesis status; Z79.890 Hormone replacement therapy; Z87.440 Personal history of urinary (tract) infections
CPT/HCPCS: 70450; 70460; 71046; 72125; 72130; 73502; 73521; 80175; 82607; 82746; 96374; 99285

== ENCOUNTER 2024-10-31 15:23 | Inpatient (IN) | payer MEDICARE, BC ==
--- NOTE | 2024-10-31 15:56 | ED ---
Fall HPI - General Source: patient, family, RN notes reviewed Mode of arrival: wheelchair Limitations: no limitations <Belem Lutz - Last Filed: 10/31/24 15:55> <Mulu Rosales - Last Filed: 11/01/24 03:04> - General Chief Complaint: Fall Stated Complaint: Fall Time Seen by Provider: 10/31/24 15:50 - History of Present Illness Initial Comments: Quick note: 6-year-old female presented the ER for evaluation of fall. Patient reports she tripped walking up a curb. She states she fell landing on her left side. She admits to head injury and is taking Xarelto. Unsure of loss of consciousness. Patient also complaining of right shoulder pain. (Belem Lutz) Patient is a 69-year-old female, presenting today for mechanical trip and fall. Patient states she is not supposed to walk up curbs and upon walking over a curb today tripped and fell onto her right side. She endorses hitting the right side of her head but denies loss of consciousness. She endorses neck and right shoul christopher pain. Denies additional injury. Currently denies dizziness, headedness, numbness, weakness, chest pain, shortness of breath, abdominal pain or pain or injuries of her additional extremities. Rates 9 out of 10 shoulder pain. (Mulu Rosales) - Related Data Home Medications Medication Instructions Recorded Confirmed Cyclobenzaprine [Flexeril] 5 mg PO TID 05/12/23 10/31/24 Atorvastatin [Lipitor] 40 mg PO DAILY 10/31/24 10/31/24 Empagliflozin [Jardiance] 10 mg PO DAILY 10/31/24 10/31/24 Furosemide [Lasix] 20 mg PO DAILY 10/31/24 10/31/24 QUEtiapine [SEROquel] 200 mg PO HS 10/31/24 10/31/24 Rivaroxaban [Xarelto] 20 mg PO DAILY 10/31/24 10/31/24 Sacubitril/Valsartan [Entresto 24 1 tab PO BID 10/31/24 10/31/24 mg-26 mg Tablet] Sertraline [Zoloft] 100 mg PO HS 10/31/24 10/31/24 Spironolactone [Aldactone] 25 mg PO DAILY 10/31/24 10/31/24 carvediloL [Coreg] 3.125 mg PO BID-W/MEALS 10/31/24 10/31/24 hydrOXYzine HCL [Atarax] 25 mg PO TID 10/31/24 10/31/24 lamoTRIgine [LaMICtal] 150 mg PO BID 10/31/24 10/31/24 traMADol HCl [Ultram] 50 mg PO BID PRN 10/31/24 10/31/24 traZODone HCL 150 mg PO HS 10/31/24 10/31/24 Allergies Allergy/AdvReac Type Severity Reaction Status Date / Time No Known Allergies Allergy Verified 10/31/24 18:15 Review of Systems ROS Other: All systems not noted in ROS Statement are negative. <Belem Lutz - Last Filed: 10/31/24 15:55> ROS Other: All systems not noted in ROS Statement are negative. <Mulu Rosales - Last Filed: 11/01/24 03:04> ROS Statement: Those systems with pertinent positive or pertinent negative responses have been documented in the HPI. Past Medical History Past Medical History: No Reported History Additional Past Medical History / Comment(s): IRON DEFICIENCY ANEMIA. History of Any Multi-Drug Resistant Organisms: None Reported Date of last positivie culture/infection: 07/04/23 MDRO Source:: Urine Past Surgical History: Back Surgery, Bariatric Surgery, Orthopedic Surgery Additional Past Surgical History / Comment(s): right shoulder, left shoulder, gastric bypass Past Anesthesia/Blood Transfusion Reactions: No Reported Reaction Past Psychological History: Anxiety, Bipolar, Depression Smoking Status: Never smoker Past Alcohol Use History: Abuse Past Drug Use History: Prescription Drug Abuse - Past Family History Mother Family Medical History: No Reported History Sister(s) Family Medical History: Pulmonary Embolus <Belem Lutz - Last Filed: 10/31/24 15:55> General Exam Limitations: no limitations <Belem Lutz - Last Filed: 10/31/24 15:55> <Mulu Rosales - Last Filed: 11/01/24 03:04> - General Exam Comments Initial Comments: Visual Physical Exam Vital signs reviewed General: Well-appearing, nontoxic, no acute distress. Head: Normocephalic, atraumatic Eyes: PERRLA, EOMI ENT: Airway patent Chest: Nonlabored breathing Skin: No visual rash, normal skin tone Neuro: Alert and oriented 3 Musculoskeletal: No gross abnormalities (Belem Lutz) PE: CONSTITUTIONAL: No apparent distress, well appearing, uncomfortable appearing SKIN: Warm, dry, no jaundice, hives or petechiae contusion to the right clavicul ar region EYES: Pupils are equally round, extraocular movements intact without nystagmus, clear conjunctiva, non-icteric sclera HENT: Normocephalic, contusion to the right occiput, moist mucus membranes, oropharynx clear without exudates NECK: , Collar applied immediately on assessment due to C-spine fracture, does have midline spinal tenderness near C7, otherwise denies midline spinal tenderness PULMONARY: Clear to auscultation without wheezes, rhonchi, or rales, normal excursion, no accessory muscle use and no stridor CARDIOVASCULAR: Regular rate, rhythm, normal S1 and S2. No appreciated murmurs, rubs or gallops. Strong radial pulses with intact distal perfusion. No lower extremity edema GASTROINTESTINAL: Soft, active bowel sounds throughout, non-tender, non- distended, no palpable masses, no rebound or guarding. No hepatosplenomegaly MUSCULOSKELETAL: Swelling, contusion and tenderness with palpation of the right clavicle, no tenderness palpation of the proximal humerus or remaining of the right upper extremity, remaining extremities are atraumatic, patient has difficulty abducting at the right shoulder due to pain in the clavicle clavicular region, with exception as noted above, no other midline speech no and no spinal tenderness palpation extremities have no gross deformity, no edema, redness, or swelling. . Sensation intact in the deltoid region, NEUROLOGIC:_a/o x 3, GCS 15, normal mentation and speech. Moves all extremities x 4 without motor or sensory deficit sensation intact throughout the bilateral upper and lower extremities, PSYCHIATRIC:_normal mood and affect, thought process is clear and linear (Mulu Rosales) Course Vital Signs 10/31/24 10/31/24 10/31/24 15:25 17:38 22:02 Temperature 97.9 F 98.1 F Pulse Rate 88 79 95 Respiratory 16 16 16 Rate Blood Pressure 115/76 135/87 104/75 O2 Sat by Pulse 97 95 96 Oximetry Medical Decision Making <Belem Lutz - Last Filed: 10/31/24 15:55> - Lab Data Result diagrams: 10/31/24 17:09 10/31/24 17:09 <Mulu Rosales - Last Filed: 11/01/24 03:04> - Medical Decision Making I performed the quick note portion of this chart. Electronically signed by ZUNILDA Smith-Chris (Belem Lutz) Was pt. sent in by a medical professional or institution (ZUNILDA Lawler, MEASUREMENT AND SENSING TECHNICIAN, urgent care, hospital, or retirement...) When possible be specific @ -No Did you speak to anyone other than the patient for history (EMS, parent, family, police, friend...)? What history was obtained from this source @ -No Did you review nursing and triage notes (agree or disagree)? Why? @ -I reviewed nursing and triage notes-of note I reviewed triage note, patient endorses lower neck pain, otherwise denies back pain, on exam has no midline spinal tenderness to palpation with exception of region at C7 Were old charts reviewed (outside hosp., previous admission, EMS record, old EKG, old radiological studies, urgent care reports/EKG's, retirement records)? Report findings @ -Medical records reviewed reviewed thoracic spine CT from 12/01/2023 patient had multilevel degenerative changes noted subcortical buckling of T2 into 3 vertebral bodies suggestive of fractures Differential Diagnosis (chest pain, altered mental status, abdominal pain women, abdominal pain men, vaginal bleeding, weakness, fever, dyspnea, syncope, headache, dizziness, GI bleed, back pain, seizure, CVA, palpatations, mental health, musculoskeletal)? @ -Differential Musculoskeletal Muscular strain, contusion, ligament sprain, fracture, arthritis, septic arthritis, bursitis, cellulitis, muscle spasm, nerve compression, DVT, arterial occlusion, herpes zoster, electrolyte abnormality, tumor.... This is not meant to be in all inclusive list EKG interpreted by me (3pts min.). @ -As above X-rays interpreted by me (1pt min.). @ -Reviewed chest x-ray, clavicle x-ray shows medial third right clavicular fracture CT interpreted by me (1pt min.). @ -Reviewed CT brain, C-spine, seen evidence of fracture or hemorrhage on CT brain, C7 fracture noted on CT C-spine U/S interpreted by me (1pt. min.). @ -None done What testing was considered but not performed or refused? (CT, X-rays, U/S, labs)? Why? @ -None What meds were considered but not given or refused? Why? @ -None Did you discuss the management of the patient with other professionals (professionals i.e. , PA, MEASUREMENT AND SENSING TECHNICIAN, lab, RT, psych nurse, elementary school social worker, media coordinator, teacher, agricultural technical officer, adult protective caseworker)? Give summary @Case discussed with Dr. Flores, states likely no surgical intervention for the patient due to being a poor surgical candidate will see patient in the morning on consult Was smoking cessation discussed for >3mins.? @ -No Was critical care preformed (if so, how long)? @ -No Were there social determinants of health that impacted care today? How? (Homelessness, low income, unemployed, alcoholism, drug addiction, transportation, low edu. Level, literacy, decrease access to med. care, prison, rehab)? @ -No Was there de-escalation of care discussed even if they declined (Discuss DNR or withdrawal of care, Hospice)? @ -No What co-morbidities impacted this encounter? (DM, HTN, Smoking, COPD, CAD, Cancer, CVA, ARF, Chemo, Hep., AIDS, mental health diagnosis, sleep apnea, morbid obesity)? @ -None Was patient admitted / discharged? Hospital course, mention meds given and route, prescriptions, significant lab abnormalities, going to OR and other pertinent info. @Admission- Pt is a pleasant 73-year-old female presenting for ground-level trip and fall today. Initially complaining of right shoulder injury. Patient was initially initially activated as a "code coag", as she is currently on Xarelto. She was taken to CT as part of code coag process and due to bed search at the ER was placed back in the waiting room. CT C-spine was read as C7 fracture prior to my direct assessment of patient. On my assessment patient does have tenderness of patient of C7, a Boyd J collar was immediately placed, she also was tenderness palpation of the right clavicular region with swelling and contusion I suspect fracture. Extremities are neurovascularly intact without skin tenting over right clavicular region. Ordered pain control, x-rays shoulder clavicle chest x-ray and basic labs. Case discussed with Dr. Morales, see note above. Imaging otherwise significant for right medial third clavicular fracture. Updated patient and guardian at bedside to findings. Case discussed with Dr. Marsh who kindly accepted patient for admission. Undiagnosed new problem with uncertain prognosis? @ -No Drug Therapy requiring intensive monitoring for toxicity (Heparin, Nitro, Insulin, Cardizem)? @ -No Were any procedures done? @ -No Diagnosis/symptom? Fall, C7 fracture, right clavicular fracture Acute, or Chronic, or Acute on Chronic? @Acute Uncomplicated (without systemic symptoms) or Complicated (systemic symptoms)? Complicated Side effects of treatment? @ -No Exacerbation, Progression, or Severe Exacerbation? @ -No Poses a threat to life or bodily function? How? (Chest pain, USA, MS, pneumonia, PE, COPD, DKA, ARF, appy, cholecystitis, CVA, Diverticulitis, Homicidal, Suicidal, threat to staff... and all critical care pts) @ -Yes (,Mulu) - Lab Data Lab Results 10/31/24 10/31/24 10/31/24 Range/Units 17:09 17:09 17:09 WBC 8.57 (4.50-10.00) 10*3/uL RBC 3.72 L (4.10-5.20) 10*6/uL Hgb 10.6 L (12.0-15.0) g/dL Hct 32.4 L (37.2-46.3) % MCV 87.1 (80.0-97.0) fL MCH 28.5 (27.0-32.0) pg MCHC 32.7 (32.0-37.0) g/dL Plt Count 302 (140-440) 10*3/uL MPV 8.7 L (9.5-12.2) fL Immature Gran % (Auto) 0.5 % Neutrophils % 81.7 % Lymphocytes % 7.0 % Monocytes % 8.1 % Eosinophils % 2.0 % Basophils % 0.7 % Immature Gran # 0.04 (0.00-0.04) 10*3/uL Neutrophils # 7.01 (1.80-7.70) 10*3/uL Lymphocytes # 0.60 L (0.90-5.00) 10*3/uL Monocytes # 0.69 (0.20-1.00) 10*3/uL Eosinophils # 0.17 (0.04-0.35) 10*3/uL Basophils # 0.06 (0.00-0.10) 10*3/uL PT 11.3 (10.0-12.5) sec INR 1.0 (<1.2) APTT 27.4 (22.0-30.0) sec Sodium 135 L (137-145) mmol/L Potassium 4.3 (3.5-5.1) mmol/L Chloride 103 (98-107) mmol/L Carbon Dioxide 20 L (22-30) mmol/L Anion Gap 12 mmol/L BUN 12 (7-17) mg/dL Creatinine 0.58 (0.52-1.04) mg/dL Est GFR (CKD-EPI)AfAm >90 (>60 ml/min/1.73 sqM) Est GFR (CKD-EPI)NonAf >90 (>60 ml/min/1.73 sqM) Glucose 95 (74-99) mg/dL Calcium 10.1 (8.4-10.2) mg/dL Total Bilirubin 0.5 (0.2-1.3) mg/dL AST 21 (14-36) U/L ALT 11 (4-34) U/L Alkaline Phosphatase 127 H (38-126) U/L Total Protein 6.5 (6.3-8.2) g/dL Albumin 3.8 (3.5-5.0) g/dL Disposition <Belem Lutz - Last Filed: 10/31/24 15:55> <Mulu Rosales - Last Filed: 11/01/24 03:04> Clinical Impression: Clavicular fracture, C7 cervical fracture Disposition: ADMITTED IP TO [facility] Condition: Stable
--- NOTE | 2024-10-31 16:23 | CT ---
EXAMINATION TYPE: CT brain cspine wo con CT DLP: 1495.8 mGycm, Automated exposure control for dose reduction was used. DATE OF EXAM: 10/31/2024 4:10 PM COMPARISON: CT brain C-spine 12/30/2023. CLINICAL INDICATION:Female, 69 years old with history of fall head injury on thinners; fall, on thinn ers, pain TECHNIQUE: Brain: Multiple axial CT images of the brain were obtained without IV contrast. Cspine: Axial CT images from the skull base to the inferior aspect of T2 we obtained without intraven ous contrast. Coronal and sagittal reformatted images were also reviewed. FINDINGS: Brain: Extra-axial spaces: No abnormal extra-axial fluid collections. Ventricular system: Within normal limits Cerebral parenchyma: Cerebral atrophy. No acute intraparenchymal hemorrhage or mass effect. The jaramillo -white junction is well differentiated. Scattered hypoattenuating areas are seen within the periventr icular white matter. Cerebellum: Unremarkable. Mass effect: No evidence of midline shift. Intracranial vasculature: Atherosclerotic calcifications of the intracranial vessels. Soft tissues: Small acute right parietal scalp contusion. Calvarium/osseous structures: No depressed skull fracture. Paranasal sinuses and mastoid air cells: Clear. Visualized orbits: Orbital contents are intact. Cervical spine: Fracture: New anterior wedge compression fracture of the C7 vertebral body with approximately 50% hei ght loss of 1 mm retropulsion. There is sclerosis of the vertebral body demonstrated. No paraspinal e eliu. Redemonstration of minimal compression fractures involving the superior endplates of the T1, T2 , and T4 vertebral bodies. Moderate compression fracture involving the T4 vertebral body redemonstrat ed with 2 mm of retropulsion and 50% height loss. Partial visualization of fixation however involving the upper thoracic spine. Fusion of the bilateral C3-C4 facet joints. Multilevel facet arthropathy. Remote fracture deformity of the medial left clavicle. Osseous structures: Unremarkable Vertebral alignment: Stable grade 1 retrolisthesis C4 on C5. Increased cervical lordosis. Spinal canal/Neural Foramina: Posterior disc osteophyte complex at C5-C6 with mild spinal canal steno sis. Facet joint uncovertebral joint arthropathy scattered throughout the cervical spine with varying degrees of neural foraminal stenosis. Neck soft tissues: Prevertebral soft tissues are within normal limits. Other: The airway is patent. Centrilobular emphysematous changes. IMPRESSION: 1. No acute intracranial process. 2. Nonspecific white matter changes, likely secondary to chronic small vessel ischemic disease. 3. Small acute right parietal scalp contusion. 4. New age-indeterminate anterior wedge compression deformity of the C7 vertebral body with approxim ately 15 % height loss and 1 mm retropulsion. No paraspinal edema identified. Correlate with point te nderness. 5. Remote multilevel upper thoracic spine compression deformities with postfixation changes. Additio nal medial left clavicular remote fracture deformity. 6. Mild multilevel degenerative disc disease. [facility], , 10/31/2024 4:20 PM
[2024-10-31 17:19] LABS: Basophils # (A) 0.06 10*3/uL (0.00-0.10); Basophils % (A) 0.7 %; Eosinophils # (A) 0.17 10*3/uL (0.04-0.35); Eosinophils % (A) 2.0 %; HCT 32.4 % (37.2-46.3); HGB 10.6 g/dL (12.0-15.0); Lymphocytes # (A) 0.60 10*3/uL (0.90-5.00); Lymphocytes % (A) 7.0 %; MCH 28.5 pg (27.0-32.0); MCHC 32.7 g/dL (32.0-37.0); MCV 87.1 fL (80.0-97.0); Monocytes # (A) 0.69 10*3/uL (0.20-1.00); Monocytes % (A) 8.1 %; Neutrophils # (A) 7.01 10*3/uL (1.80-7.70); Neutrophils % (A) 81.7 %; Platelet Count 302 10*3/uL (140-440); RBC 3.72 10*6/uL (4.10-5.20); RDW 15.7 % (11.5-14.5); WBC 8.57 10*3/uL (4.50-10.00)
[2024-10-31] MEDS: HYDROmorphone 0.5 MG/0.5 ML SYRINGE IVP STA (17:29)
[2024-10-31 17:30] LABS: ALT 11 U/L (4-34); AST 21 U/L (14-36); African American GFR (CKD) >90 (>60 ml/min/1.73 sqM); Albumin 3.8 g/dL (3.5-5.0); Alkaline Phosphatase 127 U/L (38-126); Anion Gap 12 mmol/L; Blood Urea Nitrogen 12 mg/dL (7-17); Calcium 10.1 mg/dL (8.4-10.2); Carbon Dioxide 20 mmol/L (22-30); Chloride 103 mmol/L (98-107); Glucose 95 mg/dL (74-99); Non-African American GFR(CKD) >90 (>60 ml/min/1.73 sqM); Potassium 4.3 mmol/L (3.5-5.1); Sodium 135 mmol/L (137-145); Total Protein 6.5 g/dL (6.3-8.2)
[2024-10-31] MEDS: ACETAMINOPHEN IV (For NPO) 1,000 MG in EMPTY BAG 1 BAG IVPB STA (17:30)
[2024-10-31 17:31] LABS: INR 1.0 (<1.2); Partial Thromboplastin Time 27.4 sec (22.0-30.0); Prothrombin Time 11.3 sec (10.0-12.5)
[2024-10-31] MEDS: SODIUM CHLORIDE 0.9% 500 ML 500 ML IV ONE (17:36)
--- NOTE | 2024-10-31 18:17 | XR ---
EXAMINATION TYPE: XR chest 1V, XR clavicle RT DATE OF EXAM: 10/31/2024 5:59 PM COMPARISON: CT CLINICAL INDICATION: Female, 69 years old with history of fall, c spine fracture, right shoulder pain ; [facility] TECHNIQUE: XR chest 1V, XR clavicle RT Frontal view of the chest. 2 views of the right clavicle FINDINGS: Lungs/Pleura: There is no evidence of pleural effusion, focal consolidation, or pneumothorax. Pulmonary vascularity: Unremarkable. Heart/mediastinum: Cardiomediastinal silhouette is unremarkable. Musculoskeletal: Acute right distal clavicle fracture with 1.9 cm displacement superiorly of the medi al fragment. Fixation hardware throughout the spine appears grossly intact. IMPRESSION: 1. Acute right distal clavicle fracture with 1.9 cm displacement superiorly of the medial fragment. 2. No acute cardiopulmonary disease/process. [facility], , 10/31/2024 6:15 PM
[2024-10-31] MEDS ORDERED: ONDANSETRON 4 MG/2 ML VIAL IVP PRN (19:19)
[2024-10-31] MEDS ORDERED: ACETAMINOPHEN TAB 325 MG TAB PO PRN (19:19)
[2024-10-31] MEDS ORDERED: traMADol 50 MG TAB PO PRN (20:56)
[2024-10-31] MEDS: SERTRALINE 100 MG TAB PO SCH (21:14)
[2024-10-31] MEDS: SACUBITRIL/VALSARTAN 24 MG-26 MG TABLET PO SCH (21:14)
[2024-10-31] MEDS: lamoTRIgine 100 MG TAB PO SCH (21:14)
[2024-10-31] MEDS: CYCLOBENZAPRINE 5 MG TAB PO SCH (21:14)
[2024-10-31] MEDS: FAMOTIDINE 20 MG TAB PO SCH (21:14)
[2024-10-31] MEDS: hydrOXYzine HCL 25 MG TAB PO SCH (21:17)
[2024-10-31] MEDS: HYDROmorphone 1 MG/ML 1 ML SYRINGE IVP PRN (21:25)
[2024-10-31] MEDS: NALOXONE 0.4 MG/ML 1 ML VIAL IV PRN (22:46)
[2024-10-31] MEDS: SODIUM CHLORIDE 0.9% 1,000 ML IV SCH (23:00)
--- NOTE | 2024-11-01 01:06 | HP ---
HISTORY AND PHYSICAL HISTORY OF PRESENT ILLNESS: Apparently, she had a trip and fall injury at home. She had a head and cervical spine CT, chest x-ray, clavicle x-ray in the hospital here. She fell on her left side. She admits to head injury, is on Xarelto at home. She had a mechanical trip and fall walking over a curb, hitting her right side of her head, but denies loss of consciousness. CT of head is negative for any bleeding, 9/10 pain in her shoulder. Orthopedic consult has been done. MEDICATIONS: Home medicines reviewed. ALLERGIES: Negative. PAST MEDICAL HISTORY: Iron deficiency anemia, back surgery, surgery, right shoulder. Left shoulder surgery. Dr. Flores is on consult gastric bypass. FAMILY HISTORY: Negative except for sister pulmonary embolus. SOCIAL HISTORY: Does not smoke. She has a history anxiety, bipolar depression, prescription drug abuse in the past. PHYSICAL EXAMINATION: GENERAL: No acute distress. She is sleepy, fatigued. VITAL SIGNS: Blood pressure has been 70/50 and came up to 110 with 1 L of fluid bolus. We gave her another fluid bolus 1 L overnight. Pain is under control with medications. Blood pressure 115 to 135 over 70s to 80s, pulse is 70-98, temperature 97.9, and O2 95%- 97%. HEENT: Normocephalic, atraumatic. She wears glasses. LUNGS: Transmitted upper airway sounds. CARDIOVASCULAR: S1, S2. GI: Soft, nontender. MUSCULOSKELETAL: Has tenderness to palpation over the proximal humerus, right upper extremity, right shoulder pain in the clavicle region. NEURO: Alert and oriented x3. PSYCH: Fair mood and affect. LABORATORY DATA: Hemoglobin is 10.6, white count is 8.37. Sodium 135, potassium 4.3. IMPRESSION AND PLAN: She had a closed head injury secondary to a fall with shoulder injury, clavicle fracture and a cervical fracture for which a Colles splint. She has a neck collar on. Going to get consult Dr. Flores for Neurosurgery and Orthopedic Surgery. Home medications have been restarted. Prognosis guarded. Hypotension secondary to dehydration fluid so far. Fluid bolus, continue with another fluid bolus overnight. Prognosis guarded. MMODL / IJN: [id number] /
[2024-11-01] MEDS: DAPAGLIFLOZIN PROPANEDIOL 5 MG TABLET PO SCH (07:23)
[2024-11-01] MEDS: FUROSEMIDE 20 MG TAB PO SCH (07:23)
[2024-11-01] MEDS: SPIRONOLACTONE 25 MG TAB PO SCH (07:23)
[2024-11-01] MEDS: ATORVASTATIN 40 MG TAB PO SCH (07:23)
[2024-11-01] MEDS: traMADol 50 MG TAB PO SCH (10:30)
--- NOTE | 2024-11-01 10:39 | P.CNOR ---
History of Present Illness - [facility] Consult date: 11/01/24 Requesting physician: Mulu Rosales Consult reason: other (C7 fracture and Right clavicle fracture) History of present illness: History of Presenting Illness Patient is a pleasant 69-year-old female who presented to the ER after a trip and fall. Patient states that she was out shopping and attempted to walk over a curb and tripped and fell onto her right side hitting her head w/o LOC. Our services have been consulted due to advanced imaging demonstrating a C7 fracture and right clavicle fracture. Patient is well known to our services with multiple back surgeries performed by Dr. Flores. Patient was in office last month for a follow-up appointment and was doing well. Patient denies any significant past medical history. Patient does have an orthopedic history of multiple back surgeries and bilateral shoulder surgeries. Patient seen and examined this morning. Patient is resting comfortably in bed. Madison J collar is intact, although slightly adjusted to the left due to her right clavicle fracture. Patient denies any significant cervical pain. She does report that her pain is mostly in the right shoulder, with limited range of motion. Patient denies any radiculopathy or numbness/tingling to the bilateral upper extremities. CT of the cervical spine taken on 10/31/2024 demonstrates a new age-indeterminate anterior wedge compression deformity of the C7 vertebral body with approximately 15% height loss and 1 mm retropulsion. There is no paraspinal edema identified. There is also remote multilevel upper thoracic spine compression deformities with post fixation changes. X-ray of the right clavicle demonstrates an acute right distal clavicle fracture with 1.9 cm displacement superiorly of the medial fragment. Discussed with patient that we are recommending conservative treatments at this time. Patient verbalizes understanding and states that she does not want to have any further surgery. Review of Systems Pertinent positives and negatives as discussed in HPI, a complete review of systems was performed and all other systems are negative. Physical Examination General: The patient is awake and alert, in no acute distress Skin: Skin is warm and dry. There is a small abrasion to the right scalp. Edema and mild ecchymosis of the right shoulder. Neck: The neck is supple, there is mild tenderness with palpation over the posterior cervical spine. Range of motion is limited secondary Madison J collar in place. Cardiovascular: There is a regular rate and rhythm. Respiratory: Respirations are non-labored. Gastrointestinal: Soft, non-distended, non-tender abdomen. Back: There is no tenderness to palpation in the midline, paralumbar, parathoracic or buttocks region. There is no obvious deformity. Musculoskeletal: Right: shoulder abduction 3-/5, elbow flexors 4/5, wrist dorsiflexors 4/5. finger abductor 5/5, hemmer automatic 5/5, hip flexor 5/5, knee flexor 5/5, ankle dorsiflexor 5/5, ankle plantarflexion 5/5 and extensor hallucis 5/5. Left: shoulder abduction 5/5, elbow flexors 5/5, wrist dorsiflexors 5/5. finger abductor 5/5, hemmer automatic 5/5, hip flexor 5/5, knee flexor 5/5, ankle dorsiflexor 5/5, ankle plantarflexion 5/5 and extensor hallucis 5/5. Neurological: CN 2-12 intact. There are no obvious motor or sensory deficits. Movement and coordination equal and intact. Sensory exam to light touch intact C5-T1 and intact from L2-S1. Reflexes 2/4 in bilateral upper and lower extremities. Negative Hoffmans, babinski, and clonus signs. Psychiatric: Cooperative, appropriate mood & affect, normal judgment. Assessment Mechanical fall with trauma Indeterminant C7 compression fracture Acute right distal clavicle fracture h/o multiple lumbar and thoracic surgery Plan At this time we do not recommend any emergent/urgent orthopedic surgical intervention. Patient to wear Madison J collar at all times until follow-up. Order has been placed for a sling for the right upper extremity. Patient is to be nonweightbearing of the right upper extremity. She may perform passive range of motion exercises of the right elbow and wrist. Continue with current pain management. Encouraged use of ice packs over the right shoulder to assist with pain management and swelling. Patient may follow-up with Dr. Flores's office in 1 week. Orthopedics is signing off at this time. Please do not hesitate to contact us for any further questions. 2. Appreciate medical management 3. Pain management - Continue current regimen, Utilize ice therapy 20min every hour as needed. 4. PT/OT - weightbearing as tolerated with a walker as needed. Madison J collar to be worn at all times until follow up. Order has been placed for a sling for the right upper extremity. Patient is to be nonweightbearing of the right upper extremity. 5. Appreciate consult. I reviewed and discussed this case with my attending Dr. Flores, whom has reviewed this chart and films and is in agreement with assessment and plan of care as outlined above. I have personally seen and examined the patient, performed the documentation and the assessment and plan as written. Number of minutes spent on the visit: 30m. Past Medical History Past Medical History: No Reported History Additional Past Medical History / Comment(s): IRON DEFICIENCY ANEMIA. History of Any Multi-Drug Resistant Organisms: None Reported Year Discovered:: 07/04/23 MDRO Source:: Urine Past Surgical History: Back Surgery, Bariatric Surgery, Orthopedic Surgery Additional Past Surgical History / Comment(s): right shoulder, left shoulder, gastric bypass Past Anesthesia/Blood Transfusion Reactions: No Reported Reaction Past Psychological History: Anxiety, Bipolar, Depression Smoking Status: Never smoker Past Alcohol Use History: Abuse Additional Past Alcohol Use History / Comment(s): Pt. drank 3 times a week heavily for 10 yrs. and quit 2 yrs. ago. Past Drug Use History: Prescription Drug Abuse Additional Drug Use History / Comment(s): Pt. admits to overusing prescription [place] 7.5/325 mg's. and Keppra. - Past Family History Mother Family Medical History: No Reported History Sister(s) Family Medical History: Pulmonary Embolus Medications and Allergies Home Medications Medication Instructions Recorded Confirmed Type Cyclobenzaprine [Flexeril] 5 mg PO TID 05/12/23 10/31/24 History Atorvastatin [Lipitor] 40 mg PO DAILY 10/31/24 10/31/24 History Empagliflozin [Jardiance] 10 mg PO DAILY 10/31/24 10/31/24 History Furosemide [Lasix] 20 mg PO DAILY 10/31/24 10/31/24 History QUEtiapine [SEROquel] 200 mg PO HS 10/31/24 10/31/24 History Rivaroxaban [Xarelto] 20 mg PO DAILY 10/31/24 10/31/24 History Sacubitril/Valsartan [Entresto 24 1 tab PO BID 10/31/24 10/31/24 History mg-26 mg Tablet] Sertraline [Zoloft] 100 mg PO HS 10/31/24 10/31/24 History Spironolactone [Aldactone] 25 mg PO DAILY 10/31/24 10/31/24 History carvediloL [Coreg] 3.125 mg PO BID-W/MEALS 10/31/24 10/31/24 History hydrOXYzine HCL [Atarax] 25 mg PO TID 10/31/24 10/31/24 History lamoTRIgine [LaMICtal] 150 mg PO BID 10/31/24 10/31/24 History traMADol HCl [Ultram] 50 mg PO BID PRN 10/31/24 10/31/24 History traZODone HCL 150 mg PO HS 10/31/24 10/31/24 History Allergies Allergy/AdvReac Type Severity Reaction Status Date / Time No Known Allergies Allergy Verified 10/31/24 18:15 Results - Labs Labs: Abnormal Lab Results - Last 24 Hours (Table) 10/31/24 10/31/24 Range/Units 17:09 17:09 RBC 3.72 L (4.10-5.20) 10*6/uL Hgb 10.6 L (12.0-15.0) g/dL Hct 32.4 L (37.2-46.3) % MPV 8.7 L (9.5-12.2) fL Lymphocytes # 0.60 L (0.90-5.00) 10*3/uL Sodium 135 L (137-145) mmol/L Carbon Dioxide 20 L (22-30) mmol/L Alkaline Phosphatase 127 H (38-126) U/L H & H 10/31/24 Range/Units 17:09 Hgb 10.6 L (12.0-15.0) g/dL Hct 32.4 L (37.2-46.3) % Coagulation 10/31/24 Range/Units 17:09 INR 1.0 (<1.2) Result Diagrams: 10/31/24 17:09 10/31/24 17:09
[2024-11-01] MEDS: ALPRAZolam 0.25 MG TAB PO PRN (11:22)
[2024-11-01] MEDS ORDERED: hydrALAZINE HCL 20 MG/ML 1 ML VIAL IVP PRN (18:30)
--- NOTE | 2024-11-01 18:43 | P.GSCN ---
History of Present Illness Consult date: 11/01/24 Reason for Consult: Urinary retention History of present illness: This is a 69-year-old female presents to the hospital with following a fall. Urology was consulted for urinary retention. Patient had a Almendarez catheter placed for this with 600 mL. No previous history of urinary retention. At baseline she denies any voiding dysfunction, but does have history of recurrent UTIs. Denies any hematuria or dysuria. Post no previous history of kidney stones no known urological surgeries. Of note she does have history of multiple previous spinal surgeries. Review of Systems - Constitutional Denies fever, Denies weight loss - Cardiovascular Denies chest pain, Denies shortness of breath - Respiratory Reports as per HPI - Gastrointestinal Reports as per HPI - Genitourinary Genitourinary: Denies dysuria, Denies hematuria Past Medical History Past Medical History: No Reported History Additional Past Medical History / Comment(s): IRON DEFICIENCY ANEMIA. History of Any Multi-Drug Resistant Organisms: None Reported Year Discovered:: 07/04/23 MDRO Source:: Urine Past Surgical History: Back Surgery, Bariatric Surgery, Orthopedic Surgery Additional Past Surgical History / Comment(s): right shoulder, left shoulder, gastric bypass Past Anesthesia/Blood Transfusion Reactions: No Reported Reaction Past Psychological History: Anxiety, Bipolar, Depression Smoking Status: Never smoker Past Alcohol Use History: Abuse Additional Past Alcohol Use History / Comment(s): Pt. drank 3 times a week heavily for 10 yrs. and quit 2 yrs. ago. Past Drug Use History: Prescription Drug Abuse Additional Drug Use History / Comment(s): Pt. admits to overusing prescription [place] 7.5/325 mg's. and Keppra. - Past Family History Mother Family Medical History: No Reported History Sister(s) Family Medical History: Pulmonary Embolus Medications and Allergies Home Medications Medication Instructions Recorded Confirmed Type Cyclobenzaprine [Flexeril] 5 mg PO TID 05/12/23 10/31/24 History Atorvastatin [Lipitor] 40 mg PO DAILY 10/31/24 10/31/24 History Empagliflozin [Jardiance] 10 mg PO DAILY 10/31/24 10/31/24 History Furosemide [Lasix] 20 mg PO DAILY 10/31/24 10/31/24 History QUEtiapine [SEROquel] 200 mg PO HS 10/31/24 10/31/24 History Rivaroxaban [Xarelto] 20 mg PO DAILY 10/31/24 10/31/24 History Sacubitril/Valsartan [Entresto 24 1 tab PO BID 10/31/24 10/31/24 History mg-26 mg Tablet] Sertraline [Zoloft] 100 mg PO HS 10/31/24 10/31/24 History Spironolactone [Aldactone] 25 mg PO DAILY 10/31/24 10/31/24 History carvediloL [Coreg] 3.125 mg PO BID-W/MEALS 10/31/24 10/31/24 History hydrOXYzine HCL [Atarax] 25 mg PO TID 10/31/24 10/31/24 History lamoTRIgine [LaMICtal] 150 mg PO BID 10/31/24 10/31/24 History traMADol HCl [Ultram] 50 mg PO BID PRN 10/31/24 10/31/24 History traZODone HCL 150 mg PO HS 10/31/24 10/31/24 History Allergies Allergy/AdvReac Type Severity Reaction Status Date / Time No Known Allergies Allergy Verified 10/31/24 18:15 Surgical - Exam Vital Signs Temp Pulse Resp BP Pulse Ox 97.9 F 88 16 115/76 97 10/31/24 15:25 10/31/24 15:25 10/31/24 15:25 10/31/24 15:25 10/31/24 15:25 - General no distress, moderate pain - Eyes normal ocular movement, no pale - ENT normal nares, normal mucosa - Respiratory normal expansion, normal respiratory effort - Abdomen Abdomen: soft, non tender, no distended Results - Labs 10/31/24 17:09 10/31/24 17:09 Assessment and Plan Assessment: 69-year-old female with urinary retention and no voiding dysfunction at baseline or previous history of urine retention. Almendarez catheter can stay for 3 days, she can have a trial of void at that time, , will start a short course of Flomax to help with voiding - Trial of void in 3 days, Almendarez catheter can be removed at that time, if residuals less than 400 mL no need to reinsert catheter -Will start Flomax.
[2024-11-02] MEDS: HYDROmorphone 0.5 MG/0.5 ML SYRINGE IVP PRN (07:47)
[2024-11-02] MEDS: TAMSULOSIN 0.4 MG CAP.ER.24H PO SCH (10:07)
[2024-11-02 10:42] LABS: Basophils # (A) 0.08 X 10*3/uL (0.00-0.10); Basophils % (A) 0.8 %; Eosinophils # (A) 0.26 X 10*3/uL (0.04-0.35); Eosinophils % (A) 2.6 %; HCT 36.1 % (37.2-46.3); HGB 11.1 g/dL (12.0-15.0); Immature Grans, Automated 0.40 %; Lymphocytes # (A) 0.65 X 10*3/uL (0.90-5.00); Lymphocytes % (A) 6.4 %; MCH 27.9 pg (27.0-32.0); MCHC 30.7 g/dL (32.0-37.0); MCV 90.7 FL (80.0-97.0); Monocytes # (A) 0.97 X 10*3/uL (0.20-1.00); Monocytes % (A) 9.6 %; NRBC Per 100 WBC 0 X 10*3/uL (0.00-0.01); Neutrophils # (A) 8.13 X 10*3/uL (1.80-7.70); Neutrophils % (A) 80.2 %; Platelet Count 312 X 10*3/uL (140-440); RBC 3.98 X 10*6/uL (4.10-5.20); RDW 16.2 % (11.5-14.5); WBC 10.13 X 10*3/uL (4.50-10.00)
[2024-11-02 10:55] LABS: ALT 10 U/L (8-44); AST 18 U/L (13-35); Albumin 3.4 g/dL (3.8-4.9); Albumin/Globulin Ratio 1.48 Ratio (1.60-3.17); Alkaline Phosphatase 124 U/L (41-126); Anion Gap 11.70 mmol/L (4.00-12.00); BUN/Creat Ratio 17.00 Ratio (12.00-20.00); Blood Urea Nitrogen 8.5 mg/dL (9.0-27.0); Calcium 9.3 mg/dL (8.7-10.3); Carbon Dioxide 20.3 mmol/L (21.6-31.8); Chloride 104 mmol/L (96-109); Globulin 2.3 g/dL (1.6-3.3); Glucose 87 mg/dL (70-110); Potassium 4.2 mmol/L (3.5-5.5); Sodium 136 mmol/L (135-145); Total Protein 5.7 g/dL (6.2-8.2)
--- NOTE | 2024-11-03 02:48 | PN ---
PROGRESS NOTE SUBJECTIVE: [facility] tomorrow in the for physical therapy for cervical fracture. She has cervical collar on. She has her right arm in a sling due to distal clavicle fracture with 2.5 cm displacement. She is being treated for congestive heart failure, urinary incontinence, dyslipidemia, hypertension. She fell at home, unclear etiology. Her saturations are 95% on room air, temperature 98.1, pulse 60s, respiratory rate 16- 18, and blood pressure is 130s/80s. Prognosis is guarded. Ambulate as tolerated. Neurologic cranial nerves intact. Psych fair mood and affect. PLAN: Continue current treatment, PT, OT, wear cervical collar, wear sling in the right arm, pain control. Prognosis guarded. Go to rehab tomorrow. Clinically, she is stable. MMODL / IJN: [id number] /
--- NOTE | 2024-11-04 07:54 | DS ---
DISCHARGE SUMMARY DISCHARGE DIAGNOSES: Syncope, C7 cervical fracture, clavicle fracture, right distal clavicle, altered mental status, anemia, chronic obstructive pulmonary disease, urinary retention, dyslipidemia, hypertension, systolic congestive heart failure history. MEDICATIONS: 1. Flomax 0.4 mg daily. 2. Tramadol 50 every 12 p.r.n. 3. Lamictal 150 b.i.d. 4. Aldactone 25 daily. 5. Zoloft 100 mg daily. 6. Entresto 24/26 b.i.d. 7. Lipitor 40 daily. 8. Trazodone 150 at night. 9. Coreg 3.125 b.i.d. 10.Flexeril 5 mg t.i.d. p.r.n. 11.Atarax 25 mg t.i.d. 12.Seroquel 200 at night. 13.Lasix 20 daily. 14.Jardiance 10 daily. 15.Xarelto 20 mg daily. 16.DuoNeb updrafts t.i.d. CONDITION: Stable. PROGNOSIS: Guarded. Ambulate as tolerated. HOSPITAL COURSE: The patient came to hospital after having a fall at home, C7 cervical fracture, clavicle fracture, altered mental status, anemia, hypertension, systolic CHF, some dehydration, seen by Orthopedic Surgery, Neurosurgery, put a cervical collar on her, which she will have to wear for 6 weeks. Right arm in a sling for 6 weeks. Physical therapy per Dr. Flores. The patient is going to rehab because she cannot take care of herself at home. Home medicines reviewed. Diet as tolerated. Regular PT/OT. Continue current treatments. Prognosis guarded. Ambulate as tolerated. MMODL / IJN: [id number] /
[2024-11-04 13:11] VITALS: BP 130/71; PULSE 47; RESP 17; TEMP 97.5
== END 2024-11-04 14:13 | DRG 552 ==
LOC: EEVIPCON 15:23 → EC 15:23 → 4SSUR 19:20
PROVIDERS: ADMIT Family Medicine; ATTEND Family Medicine
DX: S12.600A Unspecified displaced fracture of seventh cervical vertebra, initial encounter for closed fracture (principal); S09.90XA Unspecified injury of head, initial encounter; I11.0 Hypertensive heart disease with heart failure; S42.031A Displaced fracture of lateral end of right clavicle, initial encounter for closed fracture; J44.9 Chronic obstructive pulmonary disease, unspecified; F31.9 Bipolar disorder, unspecified; D50.9 Iron deficiency anemia, unspecified; I50.22 Chronic systolic (congestive) heart failure; W01.0XXA Fall on same level from slipping, tripping and stumbling without subsequent striking against object, initial encounter; Y92.009 Unspecified place in unspecified non-institutional (private) residence as the place of occurrence of the external cause; E78.5 Hyperlipidemia, unspecified; E86.0 Dehydration; R32 Unspecified urinary incontinence; R33.8 Other retention of urine; Y93.01 Activity, walking, marching and hiking; Z79.01 Long term (current) use of anticoagulants; Z79.84 Long term (current) use of oral hypoglycemic drugs; Z79.899 Other long term (current) drug therapy; Z87.440 Personal history of urinary (tract) infections; Z98.84 Bariatric surgery status; I95.89 Other hypotension
CPT/HCPCS: 36415; 70450; 71045; 72125; 80053; 85025; 85610; 85730; 87086; 96361; 96365; 96375; 96376; 99285